=== PATIENT | female | born 1945 | race Caucasian/White ===

== ENCOUNTER 2023-04-12 08:43 | Outpatient (OUT) | payer MEDICARE, SELFPAY ==
[2023-04-12 09:12] LABS: Basophils Percent Auto 0.7 % (0.2-2.0); Eosinophils Absolute Auto 0.1 10^3/uL (0.0-0.7); Eosinophils Percent Auto 3.2 % (0.9-7.0); Hematocrit 39.9 % (36.0-48.0); Hemoglobin 12.8 g/dL (12.0-16.0); Immature Granulocytes Abs Auto 0.01 10^3/uL (0.00-0.03); Immature Granulocytes Pct Auto 0.2 % (0.0-0.5); Lymphocytes Absolute Auto 1.1 10^3/uL (1.2-3.8); Lymphocytes Percent Auto 24.2 % (20.5-60.0); Mean Corpuscular HGB Conc 32.1 g/dL (29.9-35.2); Mean Corpuscular Hemoglobin 31.1 pg (26.7-34.0); Mean Corpuscular Volume 96.8 fL (81.0-99.0); Mean Platelet Volume 8.6 fL (9.5-13.5); Monocytes Absolute Auto 0.4 10^3/uL (0.3-0.8); Monocytes Percent Auto 9.5 % (1.7-12.0); Neutrophils Absolute Auto 2.8 10^3/uL (1.4-6.5); Neutrophils Percent Auto 62.2 % (43.0-75.0); Platelet Count 241 10^3/uL (150-450); Red Blood Count 4.12 10^6/uL (4.20-5.40); Red Cell Distribution Width 12.7 % (11.0-15.0); White Blood Count 4.4 10^3/uL (4.0-11.0)
[2023-04-12 09:43] LABS: Estimated Average Glucose 117 mg/dL; Glycohemoglobin A1C 5.7 % (4.5-6.2)
[2023-04-12 09:59] LABS: Alanine Aminotransferase 28 U/L (14-59); Albumin Globulin Ratio 1.1; Albumin Level 3.8 g/dL (3.4-5.0); Alkaline Phosphatase 67 U/L (46-116); Anion Gap 11.7; Aspartate Amino Transferase 17 U/L (15-37); BUN Creatinine Ratio 36.4; Bilirubin Total 0.5 mg/dL (0.2-1.0); Calcium 8.9 mg/dL (8.5-10.1); Carbon Dioxide 30.7 mmol/L (21.0-32.0); Chloride 106 mmol/L (98-107); Chol HDL Ratio 2.2; Cholesterol 203 mg/dL (<=200); Estimated GFR (African America >60 (>=60); Estimated GFR (Non-African Ame 55 (>=60); Free T3 1.97 pg/mL (2.18-3.98); Globulin 3.5 g/dL; Glucose 101 mg/dL (74-106); HDL Cholesterol 94 mg/dL (40-60); Potassium 4.4 mmol/L (3.5-5.1); Sodium 144 mmol/L (136-145); Thyroid Stimulating Hormone 0.213 uIU/mL (0.358-3.740); Total Protein 7.3 g/dL (6.4-8.2); Triglycerides 48 mg/dL (<=150); VLDL CHOLESTEROL 9.6 mg/dL
[2023-04-13 10:08] LABS: Insulin 6.3 uIU/mL (2.6-24.9)
== END 2023-04-12 08:44 | disposition home or self-care (01) ==
LOC: LAB 08:45
PROVIDERS: PCP Family Medicine; Visit Provider Family Medicine
DX: E03.9 Hypothyroidism, unspecified (principal); J45.909 Unspecified asthma, uncomplicated; M19.90 Unspecified osteoarthritis, unspecified site; I10 Essential (primary) hypertension; E78.5 Hyperlipidemia, unspecified; R73.09 Other abnormal glucose; D64.9 Anemia, unspecified; E55.9 Vitamin D deficiency, unspecified
CPT/HCPCS: 36415; 80053; 80061; 82306; 83036; 83525; 83540; 84436; 84443; 84481; 85025

== ENCOUNTER 2023-04-12 09:09 | Outpatient (OUT) | payer MEDICARE, SELFPAY ==
--- NOTE | 2023-04-12 09:13 | MM_ITS ---
Patient Name: BECKY STRONG MR#: [id number] : 1945 Exam Date: 04/12/2023 Ordering Doctor: DR Rodney Hernandez . RADIOLOGY REPORT PROCEDURE: MM TOMOSYNTHESIS SCREENING BI COMPARISON: MG MAMM SCREEN 3D YONI CAD, 04/06/2021. MG MAMM SCREEN 3D YONI CAD, 04/07/2022. INDICATIONS: Screening Calculator Name NCI Breast Cancer Risk Assessment Tool 5 Year Breast Cancer Risk 2.90% Lifetime Breast Cancer Risk 6.30% Personal Breast Cancer No Personal Ovarian Cancer No Treatments None Family Cancers None LOCATION: [facility] BREAST COMPOSITION: Heterogeneously dense,which may obscure small masses. FINDINGS: DIAGNOSTIC CATEGORY 2--BENIGN FINDING. NO CHANGE FROM COMPARISON. Scattered benign-appearing nodules are present. Scattered benign-appearing calcifications are present. Scattered benign-appearing lymph nodes are present. RIGHT BREAST: No significant suspicious finding. LEFT BREAST: No significant suspicious finding. RECOMMENDATIONS: ROUTINE MAMMOGRAM AND CLINICAL EVALUATION IN 12 MONTHS. PLEASE NOTE: A NORMAL MAMMOGRAM DOES NOT EXCLUDE THE POSSIBILITY OF BREAST CANCER. A CLINICALLY SUSPICIOUS PALPABLE LUMP SHOULD BE BIOPSIED. Dictated by: Damaso Nice MD on 04/12/2023 at 12:44 Approved by: Damaso Nice MD on 04/12/2023 at 12:46
== END 2023-04-12 09:10 | disposition home or self-care (01) ==
LOC: MAMMO 09:09
PROVIDERS: PCP Family Medicine; Visit Provider Family Medicine
DX: Z12.31 Encounter for screening mammogram for malignant neoplasm of breast (principal)
CPT/HCPCS: 77063; 77067

== ENCOUNTER 2023-05-16 11:45 | Outpatient (OUT) | payer MEDICARE, SELFPAY ==
--- OUTSIDE RECORDS SUMMARY | 2023-05-16 11:49 | XMS_ITS | CCD ---
Author Name Unknown Address [address] [facility] [address] [place] [address] Organization [facility] Care Team Providers Care Supportability Engineer Name Role Phone Dorcas Hernandez MD Primary Care Provider DORCAS HERNANDEZ Referring Unavailable DORCAS HERNANDEZ Primary Care Unavailable GERI CHONG Attending Unavailable GERI CHONG Admitting Unavailable DORCAS HERNANDEZ Primary Care Unavailable DORCAS HERNANDEZ Referring Unavailable SELF, REFERRED Attending Unavailable SELF, REFERRED Admitting Unavailable Dorcas Hernandez MD Primary Care Provider SARANYA DURHAM Admitting Unavailable SARANYA DURHAM Attending Unavailable DORCAS HERNANDEZ Primary Care Unavailable [facility] Consulting Unavailable SARANYA DURHAM Referring Unavailable DORCAS HERNANDEZ Primary Care Unavailable TIMOTHY Mccormack, DR TOSCANO Attending Unavailable HOY ., DR TOSCANO Admitting Unavailable HOY ., DR TOSCANO Primary Care Unavailable TIMOTHY Mccormack, DR TOSCANO Consulting Unavailable ZIEBMINO, DR FER Cameron Consulting Unavailable ALABASTER, DR SARANYA Massey Consulting Unavailable AHMED, DR GALEANA Admitting Unavailable HOY ., DR TOSCANO Primary Care Unavailable AHMED, DR GALEANA Attending Unavailable AHMED, DR GALEANA Consulting Unavailable TIMOTHY .DR TOSCANO Admitting Unavailable TIMOTHY ., DR TOSCANO Attending Unavailable TIMOTHY ., DR TOSCANO Primary Care Unavailable TIMOTHY ., DR TOSCANO Consulting Unavailable ELTAFRANCISCO, DR KENNEY Consulting Unavailable TIMOTHY ., DR TOSCANO Primary Care Unavailable ELTAFRANCISCO, DR KENNEY Attending Unavailable ZAC, DR KENNEY Admitting Unavailable ELA MELTON Admitting Unavailable ELA MELTON Consulting Unavailable ELA MELTON Attending Unavailable TIMOTHY Mccormack, DR TOSCANO Primary Care Unavailable HOY ., DR TOSCANO Admitting Unavailable HOY ., DR TOSCANO Attending Unavailable HOY ., DR TOSCANO Primary Care Unavailable HOY ., DR TOSCANO Consulting Unavailable HOY ., DR TOSCANO Admitting Unavailable HOY ., DR TOSCANO Attending Unavailable HOY ., DR TOSCANO Referring Unavailable HOY ., DR TOSCANO Primary Care Unavailable HOY ., DR TOSCANO Consulting Unavailable ALABASTER, DR SARANYA Massey Consulting Unavailable HOY ., DR TOSCANO Consulting Unavailable HOY ., DR TOSCANO Admitting Unavailable HOY ., DR TOSCANO Attending Unavailable HOY ., DR TOSCANO Primary Care Unavailable HOY ., DR TOSCANO Consulting Unavailable HOY ., DR TOSCANO Admitting Unavailable HOY ., DR TOSCANO Primary Care Unavailable HOY ., DR TOSCANO Attending Unavailable MISC, DR UREÑA Admitting Unavailable HOY ., DR TOSCNAO Primary Care Unavailable MISC, DR UREÑA Attending Unavailable REINECK, DR NIKUNJ Díaz Admitting Unavailabl e REINECK, DR NIKUNJ Díaz Consulting Unavailabl e HOY ., DR TOSCANO Primary Care Unavailable REINECK, DR NIKUNJ Díaz Attending Unavailabl e ZIEBER, DR FER Cameron Consulting Unavailable NIKHIL GIORDANO Admitting Unavailable NIKHIL GIORDANO Consulting Unavailable TIMOTHY ., DR TOSCANO Primary Care Unavailable NIKHIL GIORDANO Attending Unavailable LETICIA HOYT Unavailable Gertrudis Encarnacion Attending Unavailable ELOISA OWEN Attending Unavailable ELOISA OWEN Attending Unavailable MELISSA AKHTAR Attending Unavailable Medications Current Medications Medication Drug Class(es) Dates Sig (Normalized) Sig (Original) alendronic acid 70 mg oral tablet (3 sources) Bisphosphonate Start: 02-22-2021 alendronate 70 MG tablet amitriptyline hydrochloride 50 mg oral tablet (1 source) Tricyclic Antidepressant Start: 01-06-2021 amitriptyline 50 MG tablet aspirin 81 mg chewable tablet (2 sources) Platelet Aggregation Inhibitor, Nonsteroidal Anti-inflammatory Drug Start: 05-28-2022 End: 07-09-2022 take 1 tablet by mouth twice daily aspirin 81 mg chewable tablet Chew 1 tablet (81 mg total) 2 (two) times a day. Aspirin 81 mg , 1 tab PO BID for 6 weeks, Disp appropriate quantity. If patient is prescribed Arixtra/Lovenox/Xa relto, do not begin Aspirin until that medication is finished, then only take Aspirin for 4 weeks. 84 tablet 0 05/28/2022 07/09/2022 Active Start: 05-28-2022 End: 05-27-2022 aspirin EC tablet 81 mg celecoxib 200 mg oral capsule (3 sources) Nonsteroidal Anti-inflammatory Drug Start: 05-28-2022 End: 05-27-2022 take 200 mg by mouth once daily 200 mg, oral, Daily, First dose on Tue05/28/22 at 0900, [facility] Start: 05-27-2022 End: 06-26-2022 take 1 capsule by mouth once daily celecoxib (CeleBREX) 200 mg capsule Take 1 capsule (200 mg total) by mouth 1 (one) time each day. If prior authorization is required, do not fill. 30 capsule 0 05/27/2022 06/26/2022 Active cephalexin 500 mg oral capsule (1 source) Cephalosporin Antibacterial Start: 05-27-2022 End: 06-06-2022 take 1 capsule by mouth every six hours cephalexin (KEFLEX) 500 mg capsule Take 1 capsule (500 mg total) by mouth every 6 (six) hours for 10 days. 40 each 0 05/27/2022 06/06/2022 Active diclofenac sodium 75 mg delayed release oral tablet (3 sources) Nonsteroidal Anti-inflammatory Drug Start: 03-02-2021 diclofenac EC [address] tablet levothyroxine sodium 0.075 mg oral tablet (3 sources) l-Thyroxine Start: 05-28-2022 End: 05-27-2022 75 mcg, oral, Daily, First dose on Tue05/28/22 at 0600 ORAL ROUTE: take on an empty stomach and separate from other medications. ENTERAL TUBE ROUTE: If newly initiated enteral nutrition duration is over 5 days, hold enteral nutrition 1 hour before and after drug administration, per ASPEN guidelines. take 1 tablet by mouth once edgar y levothyroxine (SYNTHROID, LEVOTHROID) 75 mcg tablet Take 1 tablet (75 mcg total) by mouth 1 (one) time each day. 0 Active liothyronine sodium 0.005 mg oral tablet (3 sources) l-Triiodothyronine Start: 05-28-2022 End: 05-27-2022 take 5 ug by mouth once daily 5 mcg, oral, Daily, First dose on Tue05/28/22 at 0600 take 1 tablet by mouth once edgar y liothyronine (CYTOMEL) 5 mcg tablet Take 1 tablet (5 mcg total) by mouth 1 (one) time each day. 0 Active lisinopril 10 mg oral tablet (4 sources) Angiotensin Converting Enzyme Inhibitor Start: 05-28-2022 End: 05-27-2022 take 10 mg by mouth once daily 10 mg, oral, Daily, First dose on Tue05/28/22 at 0900 Hold for systolic blood pressure less than 110. Start: 01-06-2021 lisinopril 10 MG tablet ondansetron 4 mg oral tablet (3 sources) Serotonin-3 Receptor Antagonist Start: 05-27-2022 End: 06-03-2022 take 1 tablet by mouth every eight hours for nausea ondansetron (ZOFRAN) 4 mg tablet Take 1 tablet (4 mg total) by mouth every 8 (eight) hours if needed for nausea or vomiting for up to 7 days. 15 tablet 0 05/27/2022 06/03/2022 Active Start: 05-27-2022 End: 05-27-2022 take 4 mg intravenously every six hours as needed ondansetron (PF) (ZOFRAN) injection 4 mg Start: 05-27-2022 End: 05-27-2022 take 1 tablet intravenously every eight hours as needed for nausea 4 mg, oral, Every 8 hours PRN, vomiting, nausea, Starting on Inez 05/27/22 at 1336, [facility] -Give IV if patient is unable to take orally. -If inadequate response within 30 minutes, proceed to next-line agent or contact provider if no further options ordered. For ODT tablets: -Do not remove from blister pack until just before administering. -Patient should allow tablet to dissolve on tongue. simvastatin 20 mg oral tablet (3 sources) HMG-CoA Reductase Inhibitor Start: 01-06-2021 simvastatin 20 MG tablet traMADol hydrochloride 50 mg oral tablet (1 source) Opioid Agonist Start: 05-27-2022 End: 06-03-2022 take 50-100 mg by mouth every six hours as needed traMADoL (ULTRAM) 50 mg tablet Take 1-2 tablets (50-100 mg total) by mouth every 6 (six) hours if needed for moderate pain for up to 7 days. Dx: Z96.6 Max Daily Amount: 400 mg 40 tablet 0 05/27/2022 06/03/2022 Active Completed/Discontinued Medications Medication Drug Class(es) Dates Sig (Normalized) Sig (Original) acetaminophen 500 mg oral tablet (3 sources) Start: 05-27-2022 End: 05-27-2022 acetaminophen (TYLENOL) tablet 1,000 mg Start: 05-27-2022 End: 06-03-2022 take 2 tablets by mouth three times daily acetaminophen (TYLENOL) 500 mg tablet Take 2 tablets (1,000 mg total) by mouth 3 (three) times a day for 7 days. Do not exceed 3,000 mg daily limit. 50 tablet 0 05/27/2022 06/03/2022 Active Start: 05-27-2022 End: 05-27-2022 take 1 tablet by mouth every six hours as needed acetaminophen (TYLENOL) tablet 325 mg aluminum hydroxide 40 mg/ml / magnesium hydroxide 40 mg/ml / simethicone 4 mg/ml oral suspension (1 source) Start: 05-27-2022 End: 05-27-2022 aluminum-magnesium hydroxide-simethicone (MAALOX) 200-200-20 mg/5 mL suspension 30 mL atorvastatin 10 mg oral tablet (1 source) HMG-CoA Reductase Inhibitor Start: 05-27-2022 End: 05-27-2022 take 10 mg by mouth once daily 10 mg, oral, Nightly, First dose on Tue05/27/22 at 2100 bethanechol chloride 25 mg oral tablet (1 source) Cholinergic Muscarinic Agonist Start: 05-27-2022 End: 05-27-2022 bethanechol (URECHOLINE) tablet 25 mg bisacodyl 10 mg rectal suppository (1 source) Stimulant Laxative Start: 05-27-2022 End: 05-27-2022 bisacodyL (DULCOLAX) suppository 10 mg calcium chloride 0.0014 meq/ml / potassium chloride 0.004 meq/ml / sodium chloride 0.103 meq/ml / sodium lactate 0.028 meq/ml injectable solution (3 sources) Start: 05-27-2022 End: 05-27-2022 take 100 mL intravenously every hour 100 mL/hr, intravenous, Continuous, Starting on Inez 05/27/22 at 1500 Start: 05-27-2022 End: 05-27-2022 lactated Ringer's infusion ceFAZolin (ANCEF) 2 gram/20 mL IV syringe 2 g (1 source) Start: 05-27-2022 End: 05-27-2022 2 g, intravenous, Administer over 3 Minutes, Every 8 hours, First dose on Inez 05/27/22 at 1800, For 2 doses, [facility] Indication: Prophylaxis-Surgical cloNIDine hydrochloride 0.1 mg oral tablet (1 source) Central alpha-2 Adrenergic Agonist Start: 05-27-2022 End: 05-27-2022 cloNIDine (CATAPRES) tablet 0.1 mg cyclobenzaprine hydrochloride 10 mg oral tablet (1 source) Muscle Relaxant Start: 05-27-2022 End: 05-27-2022 cyclobenzaprine (FLEXERIL) tablet 10 mg diphenhydrAMINE hydrochloride 25 mg oral capsule (2 sources) Histamine-1 Receptor Antagonist Start: 05-27-2022 End: 05-27-2022 take 1 capsule by mouth every six hours as needed diphenhydrAMINE (BENADRYL) capsule 25 mg Start: 05-27-2022 End: 05-27-2022 take 25 mg intravenously every six hours as needed 25 mg, intravenous, Every 6 hours PRN, itching, Starting on Inez 05/27/22 at 1433 1 ml fentaNYL 0.05 mg/ml injection (1 source) Opioid Agonist Start: 05-27-2022 End: 05-27-2022 fentaNYL (SUBLIMAZE) injection 25 mcg 0.5 ml HYDROmorphone hydrochloride 1 mg/ml prefilled syringe (1 source) Opioid Agonist Start: 05-27-2022 End: 05-27-2022 HYDROmorphone (DILAUDID) injection 0.5 mg magnesium hydroxide 80 mg/ml oral suspension (1 source) Start: 05-27-2022 End: 05-27-2022 magnesium hydroxide (MILK OF MAGNESIA) 400 mg/5 mL suspension 30 mL Naloxone (1 source) Opioid Antagonist Start: 05-27-2022 End: 05-27-2022 naloxone (NARCAN) injection 0.4 mg oxyCODONE (2 sources) Opioid Agonist Start: 05-27-2022 End: 05-27-2022 oxyCODONE (ROXICODONE) immediate release tablet 5 mg Start: 05-27-2022 End: 06-03-2022 oxyCODONE (ROXICODONE) 5 mg immediate release tablet Take 1-2 tablets (5-10 mg total) by mouth every 4 (four) hours if needed for moderate pain or severe pain for up to 7 days. Dx: Z96.6 Max Daily Amount: 60 mg 40 tablet 0 05/27/2022 06/03/2022 Active Oxygen Therapy, Adult (1 source) Start: 05-27-2022 End: 05-27-2022 Oxygen Therapy, Adult polyvinyl alcohol 0.014 ml/ml ophthalmic solution (3 sources) Start: 05-27-2022 End: 05-27-2022 1 drop, Both Eyes, Daily PRN, dry eyes, Starting on Inez 05/27/22 at 1445 promethazine hydrochloride 25 mg rectal suppository (2 sources) Phenothiazine Start: 05-27-2022 End: 05-27-2022 take 1 tablet by mouth every six hours as needed promethazine (PHENERGAN) tablet 25 mg Start: 05-27-2022 End: 05-27-2022 take 25 mg rectal route every six hours as needed promethazine (PHENERGAN) suppository 25 mg sennosides, alf 8.6 mg oral tablet (1 source) Start: 05-27-2022 End: 05-27-2022 senna (SENOKOT) tablet 8.6 mg Sodium Chloride (1 source) Start: 05-27-2022 End: 05-27-2022 sodium chloride 0.9 % flush 10 mL traZODone hydrochloride 50 mg oral tablet (1 source) Serotonin Reuptake Inhibitor Start: 05-27-2022 End: 05-27-2022 traZODone (DESYREL) tablet 50 mg Problems Active Problems Problem Classification Problem Date Documented Date Episodic/Chronic Chronic kidney disease (1 source) Chronic kidney disease stage 3; Translations: [Chronic kidney disease, stage 3] Onset: 07-13-2017 03-05-2021 Chronic Complication of device; implant or graft (4 sources) Mechanical complication of internal joint prosthesis; Translations: [Other mechanical complication of internal left hip prosthesis, initial encounter] Onset: 05-27-2022 Episodic Disorders of lipid metabolism (2 sources) Dyslipidemia; Translations: [Hyperlipidemia, unspecified] Onset: 07-13-2017 03-05-2021 Chronic Essential hypertension (2 sources) Essential hypertension; Translations: [Essential (primary) hypertension] Onset: 07-13-2017 03-05-2021 Chronic Heart valve disorders (1 source) Rheumatic disorders of both mitral and tricuspid valves; Translations: [RHEUMATIC D/O MITRAL TRICUSPID VALV] Onset: 10-29-2021 Chronic Malaise and fatigue (5 sources) Weakness; Translations: [Other fatigue] Onset: 10-29-2021 Episodic Osteoarthritis (1 source) Osteoarthritis of left hip joint; Translations: [Unilateral primary osteoarthritis, left hip] Onset: 04-05-2017 03-05-2021 Chronic Osteoporosis (1 source) Age-related osteoporosis without current pathological fracture; Translations: [AGE-REL OSTEOPOR W/O CURR PATH FX] Onset: 06-03-2022 Chronic Other aftercare (1 source) Patient encounter status; Translations: [Aftercare following joint replacement surgery] Onset: 03-09-2018 03-05-2021 Chronic Other connective tissue disease (1 source) History of total hip arthroplasty; Translations: [Presence of left artificial hip joint] Onset: 09-13-2017 03-05-2021 Chronic Other connective tissue disease (1 source) Presence of left artificial hip joint; Translations: [PRESENCE LEFT ARTIFICIAL HIP JOINT] Onset: 06-03-2022 Chronic Other nervous system disorders (1 source) Unspecified abnormalities of gait and mobility; Translations: [UNS ABNORMALITIES GAIT AND MOBILITY] Onset: 06-17-2022 Episodic Other nervous system disorders (1 source) Other abnormalities of gait and mobility; Translations: [OTHER ABNORMALITIES GAIT AND MOBILITY] Onset: 06-17-2022 Episodic Other nervous system disorders (1 source) Other acute postprocedural pain; Translations: [OTHER ACUTE POSTPROCEDURAL PAIN] Onset: 06-03-2022 Episodic Other non-traumatic joint disorders (5 sources) Pain in left hip; Translations: [PAIN IN LEFT HIP] Onset: 06-01-2022 Episodic Other nutritional; endocrine; and metabolic disorders (1 source) Localized adiposity; Translations: [Localized adiposity] Onset: 03-10-2021 03-10-2021 Chronic Other screening for suspected conditions (not mental disorders or infectious disease) (5 sources) Abnormal findings on diagnostic imaging of other parts of musculoskeletal system; Translations: [Encounter for screening mammogram for malignant neoplasm of breast] Onset: 04-07-2022 Episodic Other skin disorders (2 sources) Wrinkled skin; Translations: [Other specified disorders of the skin and subcutaneous tissue] Onset: 03-18-2021 Episodic Other skin disorders (2 sources) Atrophic condition of skin; Translations: [Atrophic disorder of skin, unspecified] Onset: 03-10-2021 Episodic Pulmonary heart disease (1 source) Pulmonary hypertension, unspecified; Translations: [PULMONARY HYPERTENSION UNSPECIFIED] Onset: 06-03-2022 Chronic Residual codes; unclassified (1 source) Pain; Translations: [Pain, unspecified] Episodic Residual codes; unclassified (1 source) Pain, unspecified; Translations: [Pain, unspecified] Onset: 05-27-2022 Episodic Residual codes; unclassified (4 sources) Other specified postprocedural states; Translations: [OTH SPECIFIED POSTPROCEDURAL STATES] Onset: 06-15-2022 Episodic Thyroid disorders (4 sources) Hypothyroidism, unspecified; Translations: [HYPOTHYROIDISM UNSPECIFIED] Onset: 03-30-2022 Chronic Unclassified (1 source) CONTACT W/AND (SUSP) EXPOS COVID-19; Translations: [CONTACT W/AND (SUSP) EXPOS COVID-19] Onset: 11-18-2021 Past or Other Problems Problem Classification Problem Date Documented Da te Episodic/Chronic Cardiac dysrhythmias (4 sources) Palpitations; Translations: [PALPITATIONS] Onset: 10-27-2021 Episodic Deficiency and other anemia (1 source) Anemia, unspecified; Translations: [ANEMIA UNSPECIFIED] Onset: 04-03-2022 Episodic Diabetes mellitus without complication (1 source) Other abnormal glucose; Translations: [OTHER ABNORMAL GLUCOSE] Onset: 04-03-2022 Episodic Nonspecific chest pain (1 source) Chest pain, unspecified; Translations: [CHEST PAIN UNSPECIFIED] Onset: 10-29-2021 Episodic Other aftercare (1 source) Patient encounter status; Translations: [Other nursing home (current) drug therapy] Onset: 04-05-2017 03-05-2021 Episodic Other connective tissue disease (1 source) Thigh pain; Translations: [Pain in left thigh] Onset: 01-18-2019 03-05-2021 Episodic Other lower respiratory disease (4 sources) Other forms of dyspnea; Translations: [OTHER FORMS OF DYSPNEA] Onset: 12-14-2021 Episodic Other skin disorders (1 source) Nonscarring hair loss, unspecified; Translations: [NONSCARRING HAIR LOSS UNSPECIFIED] Onset: 08-19-2021 Episodic Residual codes; unclassified (1 source) Insomnia, unspecified; Translations: [INSOMNIA UNSPECIFIED] Onset: 10-29-2021 Episodic Syncope (4 sources) Syncope and collapse; Translations: [SYNCOPE AND COLLAPSE] Onset: 11-14-2021 Episodic Results Test Name Value Interpretation Reference Range Facility Plastic Surgery Visit Report on 10-20-2022 Plastic Surgery Visit Report [facility] [address], [address] [place] [address] OFFICE VISIT Date of Service: 10/20/22 MR#: [id number] Acct: [id number] Name: TAEANASTASIA Joseph Rep #: [id number] : 1945 Provider: Dr. Gertrudis grimaldo MD Age/Sex: 76/F Location: [facility] Status: Signed Intake Vital Signs 10/20/22 13:35 Height 5 ft 4 in Weight: 140 lb 6 oz BMI 24.0 Body Surface Area 1.68 BP 157/75 H Blood Pressure Location Rt brachial Position Sitting Respiration 16 Pulse 85 Pulse Source Monitor Temp 97.4 F L Temp Source Temporal Pulse Oximetry (%) 97 Oxygen Delivery Method room air Intake Visit Reasons: CONSULT-LIPOSUCTION Customer Engagement Analyst Required: No Accompanied by: None Is patient in pain?: No Allergies No Known Allergies Allergy (Verified 10/20/22 13:35) Medications alendronate 70 mg tablet 70 mg PO QWEEK 10/20/22 [History Confirmed 10/20/22] amitriptyline 50 mg tablet 50 mg PO QHS 10/20/22 [History Confirmed 10/20/22] diclofenac sodium 75 mg tablet,delayed release 75 mg PO BID 10/20/22 [History Confirmed 10/20/22] levothyroxine 75 mcg capsule 75 mcg PO DAILY 10/20/22 [History Confirmed 10/20/22] liothyronine 5 mcg tablet 5 mcg PO DAILY 10/20/22 [History Confirmed 10/20/22] lisinopril 10 mg tablet 10 mg PO DAILY 10/20/22 [History Confirmed 10/20/22] montelukast 10 mg tablet 10 mg PO DAILY 10/20/22 [History Confirmed 10/20/22] simvastatin 20 mg tablet 20 mg PO DAILY 10/20/22 [History Confirmed 10/20/22] Post menopausal: Yes PFSH Medical History (Updated 10/20/22 @ 15:[address] Gertrudis Encarnacion MD) Cataract High blood pressure High cholesterol Osteopenia Thyroid disease Surgical History (Updated 10/20/22 @ 13:19 by Roxana Nassar) No pertinent past surgical history Family History (Updated 10/20/22 @ 13:20 by Roxana Nassar) Sister Hypertension Skin cancer Thyroid disorder Social History (Updated 10/20/22 @ 13:21 by Roxana Nassar) Smoking Status: Former smoker alcohol intake: never substance use type: does not use additional social history: Does Not Take Aspirin Does Not Take Ibuprofen HPI CONSULT-LIPOSUCTION Details: The patient is noted a change in her torso which has limited her clothing choices. She has gained approximately 8 pounds over the last several months. She has not had children and denies any other abdominal surgeries. She has recently begun using thyroid supplement. Exam Const General: cooperative, healthy appearing and no acute distress GI Other: Patient with protuberant abdominal muscles of the lower abdomen. She has minimal lipodystrophy of the area, as well as minimal atrophic skin. She has solar damaged skin. Coding Level of Care Code Cosmetic Consult Diagnoses Skin atrophy L90.9 Weight gain R63.5 Assessment and Plan (No Qualifiers) Assessment and Plan (1) Skin atrophy: Status: Acute (2) Weight gain: Status: Acute Plan Anastasia is not a candidate for liposuction or abdominoplasty at this time and would likely achieve the benefit she is seeking through weight loss. Plan Details Additional Comments: I reviewed with the patient that with her minimal atrophic skin or lipodystrophy, abdominoplasty or liposuction would offer very little benefit. I suggested further weight loss may help her achieve her goals. I suggested she discuss this with her PCP and consider reassessment of her diet. She is active and I encouraged her to continue with her active lifestyle. 10/20/22 1510 Date Gertrudis Montero Signature: Date (if applicable) CC: Normal [facility] CBC AUTO DIFFon 06-01-2022 BASO # 0.0 103/ul Normal 0.0-0.1 [facility] Comment on above: Performed By: #### F T3, TSH, T4 #### [facility] [address] [place] [address] Dr. Abelardo Barrett Basophils/100 WBC (Bld) 0.4 % Normal 0.2-2.0 [facility] Comment on above: Performed By: #### F T3, TSH, T4 #### [facility] [address] [place] [address] Dr. Abelardo Barrett EO # 0.1 103/ul Normal 0.0-0.7 [facility] Comment on above: Performed By: #### F T3, TSH, T4 #### [facility] [address] [place] [address] Dr. Abelardo Barrett Eosinophils/100 WBC (Bld) 2.3 % Normal 0.9-7.0 [facility] Comment on above: Performed By: #### F T3, TSH, T4 #### [facility] [address] [place] [address] Dr. Abelardo Barrett Erythrocyte distribution width (RBC) [Ratio] 13.1 % Normal 11.0-15.0 [facility] Comment on above: Performed By: #### F T3, TSH, T4 #### [facility] [address] [place] [address] Dr. Abelardo Barrett Hematocrit (Bld) [Volume fraction] 23.4 % Critically low 36.0-48.0 [facility] Comment on above: Performed By: #### F T3, TSH, T4 #### [facility] [address] [address] [address] Abelardo Barrett Hemoglobin (Bld) [Mass/Vol] 7.7 g/dL Critically low 12.0-16.0 [facility] Comment on above: Performed By: #### F T3, TSH, T4 #### [facility] [address] [address] [address] Abelardo Barrett IG # 0.02 10e3/ul Normal 0.00-0.03 [facility] Comment on above: Performed By: #### F T3, TSH, T4 #### [facility] [address] [place] [address] Dr. Abelardo Barrett IG % 0.4 % Normal 0.0-0.5 [facility] Comment on above: Performed By: #### F T3, TSH, T4 #### [facility] [address] [place] [address] Dr. Abelardo Barrett LYMPH # 0.9 103/ul Critically low 1.2-3.[address] [facility] Comment on above: Performed By: #### F T3, TSH, T4 #### [facility] [address] [address] [address] Abelardo Barrett Lymphocytes/100 WBC (Bld) 16.5 % Critically low 20.5-60.0 [facility] Comment on above: Performed By: #### F T3, TSH, T4 #### [facility] [address] [address] [address] Abelardo Barrett MANUAL DIFF REQ NO Normal [facility] Comment on above: Performed By: #### F T3, TSH, T4 #### [facility] [address] [address] [address] Abelardo Barrett MCH (RBC) [Entitic mass] 30.8 pg Normal 26.7-34.0 [facility] Comment on above: Performed By: #### F T3, TSH, T4 #### [facility] Laboratory [address] [place] [address] Dr. Abelardo Barrett MCHC (RBC) [Mass/Vol] 32.9 g/dL Normal 29.9-35.2 [facility] Comment on above: Performed By: #### F T3, TSH, T4 #### [facility] [address] [place] [address] Dr. Abelardo Barrett MCV (RBC) [Entitic vol] 93.6 fL Normal 81.0-99.0 [facility] Comment on above: Performed By: #### F T3, TSH, T4 #### [facility] [address] [place] [address] Dr. Abelardo Barrett MONO # 1.0 103/ul Critically high 0.3-0.8 [facility] Comment on above: Performed By: #### F T3, TSH, T4 #### [facility] [address] [place] [address] Dr. Abelardo Barrett Monocytes/100 WBC (Bld) 17.1 % Critically high 1.7-12.0 [facility] Comment on above: Performed By: #### F T3, TSH, T4 #### [facility] [address] [place] [address] Dr. Abelardo Barrett NEUT # 3.5 103/ul Normal 1.4-6.5 [facility] Comment on above: Performed By: #### F T3, TSH, T4 #### [facility] [address] [place] [address] Dr. Abelardo Barrett Neutrophils/100 WBC (Bld) 63.3 % Normal 43.0-75.0 [facility] Comment on above: Performed By: #### F T3, TSH, T4 #### [facility] [address] [place] [address] Dr. Abelardo Barrett Platelet mean volume (Bld) [Entitic vol] 8.8 fL Critically low 9.5-13.5 [facility] Comment on above: Performed By: #### F T3, TSH, T4 #### [facility] [address] [place] [address] Dr. Abelardo Barrett PLT 255 103/ul Normal 150-450 [facility] Comment on above: Performed By: #### F T3, TSH, T4 #### [facility] [address] [place] [address] Dr. Abelardo Barrett RBC 2.50 106/ul Critically low 4.20-5.40 [facility] Comment on above: Performed By: #### F T3, TSH, T4 #### [facility] [address] [address] [address] Abelardo Barrett WBC 5.6 103/ul Normal 4.0-11.0 [facility] Comment on above: Performed By: #### F T3, TSH, T4 #### [facility] [address] [address] [address] Abelardo Barrett ER URINE PROFILEon 3 Bilirubin Ql (U) Negative Normal NEGATIVE [facility] Comment on above: Performed By: #### F T3, TSH, T4 #### [facility] [address] [place] [address] Dr. Abelardo Barrett Clarity (U) CLEAR Normal CLEAR [facility] Comment on above: Performed By: #### F T3, TSH, T4 #### [facility] [address] [address] [address] Abelardo Barrett Color (U) LT. YELLOW Normal YELLOW [facility] Comment on above: Performed By: #### F T3, TSH, T4 #### [facility] [address] [address] [address] Abelardo BOWMAN A micrscopic examina tion will be performed if indicated. Normal [facility] Comment on above: Performed By: #### F T3, TSH, T4 #### [facility] [address] [address] [address] Abelardo Barrett Glucose Ql (U) Negative Normal NEGATIVE [facility] Comment on above: Performed By: #### F T3, TSH, T4 #### [facility] [address] [address] [address] Abelardo Barrett Hemoglobin Ql (U) Negative Normal NEGATIVE The [facility] Comment on above: Performed By: #### F T3, TSH, T4 #### [facility] [address] [address] [address] Abelardo Barrett Ketones Ql (U) Negative Normal NEGATIVE [facility] Comment on above: Performed By: #### F T3, TSH, T4 #### [facility] [address] [place] [address] Dr. Abelardo Barrett LEUKOCYTES TRACE Abnormal NEGATIVE [facility] Comment on above: Performed By: #### F T3, TSH, T4 #### [facility] [address] [place] [address] Dr. Abelardo Barrett Nitrite Ql (U) Negative Normal NEGATIVE [facility] Comment on above: Performed By: #### F T3, TSH, T4 #### [facility] [address] [place] [address] Dr. Abelardo Barrett pH (U) 6.5 [pH] Normal 5-9 [facility] Comment on above: Performed By: #### F T3, TSH, T4 #### [facility] [address] [place] [address] Dr. Abelardo Barrett SPEC GRAVITY <=1.005 Abnormal 1.005-<=1.02 5 [facility] Comment on above: Performed By: #### F T3, TSH, T4 #### [facility] [address] [place] [address] Dr. Abelardo Barrett UA PROTEIN Negative Normal NEGATIVE/ TRACE [facility] Comment on above: Performed By: #### F T3, TSH, T4 #### [facility] [address] [place] [address] Dr. Abelardo Barrett UR MICRO IND INDICATED Normal [facility] Comment on above: Performed By: #### F T3, TSH, T4 #### [facility] [address] [place] [address] Dr. Abelardo Barrett Urobilinogen Qn (U) 0.2 {Erik'U}/dL Normal 0.2 - 1. 0 [facility] Comment on above: Performed By: #### F T3, TSH, T4 #### [facility] [address] [place] [address] Dr. Abelardo Barrett PROF 14(COMP METB)on 023 Albumin [Mass/Vol] 2.2 g/dL Critically low 3.4-5.0 [facility] Comment on above: Performed By: #### F T3, TSH, T4 #### [facility] [address] [address] [address] Abelardo Barrett Albumin/Globulin [Mass ratio] 0.6 {ratio} Normal [facility] Comment on above: Performed By: #### F T3, TSH, T4 #### [facility] [address] [address] [address] Abelardo Barrett ALP [Catalytic activity/Vol] 49 U/L Normal 46-116 [facility] Comment on above: Performed By: #### F T3, TSH, T4 #### [facility] [address] [address] [address] Abelardo Barrett ALT [Catalytic activity/Vol] 36 U/L Normal 14-59 [facility] Comment on above: Performed By: #### F T3, TSH, T4 #### [facility] [address] [address] [address] Abelardo Barrett Anion gap [Moles/Vol] 12.2 mmol/L Normal [facility] Comment on above: Performed By: #### F T3, TSH, T4 #### [facility] [address] [address] [address] Abelardo Barrett AST [Catalytic activity/Vol] 43 U/L Critically high 15-37 [facility] Comment on above: Performed By: #### F T3, TSH, T4 #### [facility] [address] [address] [address] Abelardo Barrett Bilirubin [Mass/Vol] 0.7 mg/dL Normal 0.2-1.0 [facility] Comment on above: Performed By: #### F T3, TSH, T4 #### [facility] [address] [address] [address] Abelardo Barrett Calcium [Mass/Vol] 11.0 mg/dL Critically high 8.5-10.[address] [facility] Comment on above: Performed By: #### F T3, TSH, T4 #### [facility] [address] [address] [address] Abelardo Barrett Chloride [Moles/Vol] 98 mmol/L Normal 98-107 [facility] Comment on above: Performed By: #### F T3, TSH, T4 #### [facility] [address] [address] [address] Abelardo Barrett CO2 [Moles/Vol] 31.7 mmol/L Normal 21.0-32.[address] [facility] Comment on above: Performed By: #### F T3, TSH, T4 #### [facility] [address] [place] [address] Dr. Abelardo Barrett Creatinine [Mass/Vol] 1.17 mg/dL Critically high 0.55-1.02 [facility] Comment on above: Performed By: #### F T3, TSH, T4 #### [facility] [address] [place] [address] Dr. Abelardo Barrett EGFR-AF CROATIAN 55 mL/min/1.73m2 Critically low >=60 [facility] Comment on above: Performed By: #### F T3, TSH, T4 #### [facility] [address] [place] [address] Dr. Abelardo Barrett EGFR-NON AF CROATIAN 45 mL/min/1.73m2 Critically low >=60 [facility] Comment on above: Performed By: #### F T3, TSH, T4 #### [facility] [address] [place] [address] Dr. Abelardo Barrett Globulin (S) [Mass/Vol] 3.4 g/dL Normal [facility] Comment on above: Performed By: #### F T3, TSH, T4 #### [facility] [address] [place] [address] Dr. Abelardo Barrett Glucose [Mass/Vol] 107 mg/dL Critically high 74-106 [facility] Comment on above: Performed By: #### F T3, TSH, T4 #### [facility] [address] [place] [address] Dr. Abelardo Barrett Potassium [Moles/Vol] 4.9 mmol/L Normal 3.5-5.1 [facility] Comment on above: Performed By: #### F T3, TSH, T4 #### [facility] [address] [place] [address] Dr. Abelardo Barrett Protein [Mass/Vol] 5.6 g/dL Critically low 6.4-8.2 [facility] Comment on above: Performed By: #### F T3, TSH, T4 #### [facility] [address] [address] [address] Abelardo Barrett Sodium [Moles/Vol] 137 mmol/L Normal 136-145 [facility] Comment on above: Performed By: #### F T3, TSH, T4 #### [facility] [address] [address] [address] Abelardo Barrett Urea nitrogen [Mass/Vol] 27.0 mg/dL Critically high 7.0-18.0 [facility] Comment on above: Performed By: #### F T3, TSH, T4 #### [facility] [address] [place] [address] Dr. Abelardo Barrett Urea nitrogen/Creatinine [Mass ratio] 23.1 mg/mg Normal [facility] Comment on above: Performed By: #### F T3, TSH, T4 #### [facility] [address] [place] [address] Dr. Abelardo Barrett URINE MICROSCOPIC ONLYon BACTERIA TRACE Abnormal NONE SEEN [facility] Comment on above: Performed By: #### F T3, TSH, T4 #### [facility] [address] [place] [address] Dr. Abelardo Barrett Bacteria identified Cx Nom (U) NOT INDICATED Normal [facility] Comment on above: Performed By: #### F T3, TSH, T4 #### [facility] [address] [place] [address] Dr. Abelardo Barrett CAST NONE SEEN Normal NONE SEEN [facility] Comment on above: Performed By: #### F T3, TSH, T4 #### [facility] [address] [place] [address] Dr. Abelardo Barrett Crystals LM Nom (Urine sed) NONE SEEN Normal NONE SEEN [facility] Comment on above: Performed By: #### F T3, TSH, T4 #### [facility] [address] [place] [address] Dr. Abelardo Barrett Epithelial cells LM Ql (Urine sed) RARE Normal NONE SEEN /RARE [facility] Comment on above: Performed By: #### F T3, TSH, T4 #### [facility] [address] [address] [address] Abelardo Barrett MUCOUS NONE SEEN Normal NONE SEEN [facility] Comment on above: Performed By: #### F T3, TSH, T4 #### [facility] [address] [address] [address] Abelardo Barrett RBC 0-2 Normal 0-2 [facility] Comment on above: Performed By: #### F T3, TSH, T4 #### [facility] [address] [address] [address] Abelardo Barrett WBC 0-2 Abnormal NONE SEEN [facility] Comment on above: Performed By: #### F T3, TSH, T4 #### [facility] [address] [address] [address] Abelardo Barrett Bacteria Spec Anaerobe Culto n 05-27-2022 Bacteria identified Anaer cx Nom (Unsp spec) Culture, Anaerobic Status = F No anaerobes grown after 4 days. Normal [facility] Comment on above: Performed By: #### 1 988-5 #### [facility] [address] [place] [address] Bacteria identified Anaer cx Nom (Unsp spec) Culture, Anaerobic Status = F No anaerobes grown after 4 days. Normal [facility] Comment on above: Performed By: #### 1 988-5 #### [facility] [address] [place] [address] Bacteria Tiss Culton 023 Bacteria identified Cx Nom (Tiss) Culture, Tissue Status = F No growth at 3 days Gram Stain Result Status = F No Polymorphonuclear leukocytes This is an appended report. These results have been appended to a previously preliminary verified report. No Epithelial cells This is an appended report. These results have been appended to a previously preliminary verified report. No organisms seen This is an appended report. These results have been appended to a previously preliminary verified report. Normal [facility] Comment on above: Performed By: #### 1 988-5 #### [facility] [address] [place] [address] Bacteria identified Cx Nom (Tiss) Culture, Tissue Status = F No growth at 3 days Gram Stain Result Status = F No Polymorphonuclear leukocytes This is an appended report. These results have been appended to a previously preliminary verified report. No Epithelial cells This is an appended report. These results have been appended to a previously preliminary verified report. No organisms seen This is an appended report. These results have been appended to a previously preliminary verified report. Normal [facility] Comment on above: Performed By: #### 1 988-5 #### [facility] [address] [place] [address] Blood type and Indirect anti body screen panel (Bld)on 05-27-2022 ABO group Nom (Bld) O Normal [facility] Comment on above: Performed By: #### 3 4532-2 #### [facility] [address] [place] [address] Rh Type Negative Normal [facility] Comment on above: Performed By: #### 3 4532-2 #### [facility] [address] [place] [address] ABO group Nom (Bld) O [facility] Blood group antibody screen Ql Negative [facility] Rh Nom (Bld) Negative [facility] Fungus Skin Culton 3 Fungus identified Cx Nom (Skin) Culture, Fungus Status = F No growth at 4 weeks Normal [facility] Comment on above: Performed By: #### 3 4532-2 #### [facility] [address] [place] [address] Fungus identified Cx Nom (Skin) Culture, Fungus Status = F No growth at 4 weeks Normal [facility] Comment on above: Performed By: #### 1 988-5 #### [facility] [address] [place] [address] Glucose Auto test strip (Bld ) [Mass/Vol]on 05-27-2022 Glucose [Mass/Vol] 98 mg/dL Normal 70-99 [facility] Comment on above: Performed By: #### 2 340-8 #### [facility] [address] [place] [address] Glucose [Mass/Vol] 98 mg/dL 70 - 99 mg/dL [facility] Interpretation and review of laboratory results [facility] Mycobacterium Spec Culton Mycobacterium sp identified Org specific cx Nom (Unsp spec) Culture AFB Status = C No growth at 8 weeks AFB Stain Status = F No acid fast bacilli seen Normal [facility] Comment on above: Performed By: #### 1 988-5 #### [facility] [address] [place] [address] Mycobacterium sp identified Org specific cx Nom (Unsp spec) Culture AFB Status = C No growth at 8 weeks AFB Stain Status = F No acid fast bacilli seen Normal [facility] Comment on above: Performed By: #### 5 43-9 #### [facility] [address] [place] [address] Performed By: #### 1 988-5 #### [facility] [address] [place] [address] Pathology studyon 05-27-2022 Pathology study Left hip tissue, bio psy: Fibrous tissue with degenerative changes. No perivascular lymphocytic inflammation is present. A. Hip, Left, R/O perivascular lymphocytic infiltrates: Received in formalin labeled with the patient's name and left hip is a 2 x 2 x 0.5 cm fragment of gupta-pink to gupta-yellow fibroadipose tissue. Upon sectioning the cut surface is gupta-pink to gupta-yellow, rubbery and grossly unremarkable. The specimen is submitted entirely in block A1. (AB) Any immunohistochemistry or special stain used in the interpretation of this case was performed at [facility]. These tests have not been cleared or approved by the U.S. Food and Drug Administration. The FDA has determined that such clearance or approval is not necessary. These tests are used for clinical purposes and should not be regarded as investigational or for research. This laboratory is certified to perform high complexity testing under the Clinical Laboratory Improvement Amendments of 1998. All controls show appropriate reactivity. The technical component was performed at [facility], [address] [place] [address]. Microscopic examination was performed. Normal [facility] Comment on above: Performed By: #### 1 1526-1 #### [facility] ([facility] [address] [place], [place] [id number] [facility] [address] [place] [address] SARS-CoV-2 (COVID-19) RNA NA A+probe Ql (Resp)on 05-27-2022 Interpretation and review of laboratory results Normal [facility] SARS-CoV-2 (COVID-19) RdRp gene STEVE+probe Ql (Resp) Not detected Not Detected [facility] SARS-CoV-2 RNA Resp Ql STEVE+p robeon 05-27-2022 SARS-CoV-2 (COVID-19) RNA STVEE+probe Ql (Resp) Not detected Normal Not Detected [facility] Comment on above: Performed By: #### 9 4500-6 #### [facility] [address] [place] [address] XR FLUORO UP TO 1 HOUR (STAT ISTICS)(NO REPORT)on 05-27-2022 XR FLUORO UP TO 1 HOUR (STATISTICS)(NO REPORT) This order has been auto-finalized and does not contain a result. Normal [facility] XR Fluoro Up To 1 Hour (Stat istics)(No Report)on 05-27-2022 This order has been auto-finalized and does not contain a result. RIS PACS/VR XR PELVIS 1-2 VIEWSon 2022 XR PELVIS 1-2 VIEWS EXAMINATION TYPE: XR PELVIS 1-2 VIEWS DATE OF EXAM: 05/27/2022 2:00 PM HISTORY: postoperative care. 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 No postoperative fracture. Tip of the elongated femoral stem in the mid left femoral diaphysis. Gas in the periarticular soft tissues from recent surgery. IMPRESSION: No acute findings. 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 -------- FINAL REPORT -------- Dictated By: Miguelangel Martinez Dictated Date: 05/27/2022 14:17 Assigned Physician: Miguelangel Martinez Reviewed and Electronically Signed By: Miguelangel Martinez Signed Date: 05/27/2022 14:21 Workstation ID: [id number] Transcribed By: Self Edit Transcribed Date: 05/27/2022 14:17 Normal [facility] XR Pelvis 1-2 Viewson 2022 No acute findings. 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 -------- FINAL REPORT -------- Dictated By: Miguelangel Martinez Dictated Date: 05/27/2022 14:17 Assigned Physician: Miguelangel Martinez Reviewed and Electronically Signed By: Miguelangel Martinez Signed Date: 05/27/2022 14:21 Workstation ID: [id number] Transcribed By: Self Edit Transcribed Date: 05/27/2022 14:17 POWERSCRIBE EXAMINATION TYPE: XR PELVIS 1-2 VIEWS DATE OF EXAM: 05/27/2022 2:00 PM HISTORY: postoperative care. 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 No postoperative fracture. Tip of the elongated femoral stem in the mid left femoral diaphysis. Gas in the periarticular soft tissues from recent surgery. POWERSCRIBE Miguelangel Martinez MD - 05/27/2022 EXAMINATION TYPE: XR PELVIS 1-2 VIEWS DATE OF EXAM: 05/27/2022 2:00 PM HISTORY: postoperative care. 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 No postoperative fracture. Tip of the elongated femoral stem in the mid left femoral diaphysis. Gas in the periarticular soft tissues from recent surgery. IMPRESSION: No acute findings. 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 -------- FINAL REPORT -------- Dictated By: Miguelangel Martinez Dictated Date: 05/27/2022 14:17 Assigned Physician: Miguelangel Martinez Reviewed and Electronically Signed By: Miguelangel Martinez Signed Date: 05/27/2022 14:21 Workstation ID: [id number] Transcribed By: Self Edit Transcribed Date: 05/27/2022 14:17 [facility] Radiology Study observation (narrative) [facility] [email or web address] XR Pelvis 1-2 ViewsOrdered B y: Miguelangel Martinez on 05-27-2022 [employer] Work Phone: Blood type and Indirect anti body screen panel (Bld)on 05-17-2022 ABO group Nom (Bld) O Normal [facility] Comment on above: Performed By: #### 3 4532-2 #### [facility] [address] [place] [address] Rh Type Negative Normal [facility] Comment on above: Performed By: #### 3 4532-2 #### [facility] [address] [place] [address] CRP [Mass/Vol]on 05-17-2022 Anion gap [Moles/Vol] 11 mmol/L Normal 6-18 [facility] Comment on above: Order Comment: Sampl e received unlabeled or with name discrepancy. The Physician, Clinican or authorized designee has authorized the release of the results and assumes responsibility for sample identification. Performed By: #### 1 988-5 #### [facility] [address] [place] [address] Calcium [Mass/Vol] 10.9 mg/dL High 8.9-10.3 [facility] Comment on above: Order Comment: Sampl e received unlabeled or with name discrepancy. The Physician, Clinican or authorized designee has authorized the release of the results and assumes responsibility for sample identification. Performed By: #### 1 988-5 #### [facility] [address] [place] [address] Chloride [Moles/Vol] 102 mmol/L Normal 98-107 [facility] Comment on above: Order Comment: Sampl e received unlabeled or with name discrepancy. The Physician, Clinican or authorized designee has authorized the release of the results and assumes responsibility for sample identification. Performed By: #### 1 988-5 #### [facility] [address] [place] [address] CO2 [Moles/Vol] 27 mmol/L Normal 22-32 [facility] Comment on above: Order Comment: Sampl e received unlabeled or with name discrepancy. The Physician, Clinican or authorized designee has authorized the release of the results and assumes responsibility for sample identification. Performed By: #### 1 988-5 #### [facility] [address] [place] [address] Creatinine [Mass/Vol] 0.92 mg/dL Normal 0.60-1.30 [facility] Comment on above: Order Comment: Sampl e received unlabeled or with name discrepancy. The Physician, Clinican or authorized designee has authorized the release of the results and assumes responsibility for sample identification. Performed By: #### 1 988-5 #### [facility] [address] [place] [address] GFR/1.73 sq M.predicted among non-blacks MDRD (S/P/Bld) [Vol rate/Area] 65 mL/min/{1.73_m2} Normal >=60 [facility] Comment on above: Order Comment: Sampl e received unlabeled or with name discrepancy. The Physician, Clinican or authorized designee has authorized the release of the results and assumes responsibility for sample identification. Result Comment: Effe ctive February 07, 2022, calculation based on the?Chronic Kidney Disease Epidemiology Collaboration (CKD-EPI) equation refit?without adjustment for race. Performed By: #### 1 988-5 #### [facility] [address] [place] [address] Glucose [Mass/Vol] 86 mg/dL Normal 70-99 [facility] Comment on above: Order Comment: Sampl e received unlabeled or with name discrepancy. The Physician, Clinican or authorized designee has authorized the release of the results and assumes responsibility for sample identification. Performed By: #### 1 988-5 #### [facility] [address] [place] [address] Potassium [Moles/Vol] 4.6 mmol/L Normal 3.6-5.1 [facility] Comment on above: Order Comment: Sampl e received unlabeled or with name discrepancy. The Physician, Clinican or authorized designee has authorized the release of the results and assumes responsibility for sample identification. Performed By: #### 1 988-5 #### [facility] [facility] [address] [place] [id number] Sodium [Moles/Vol] 140 mmol/L Normal 136-145 [facility] Comment on above: Order Comment: Sampl e received unlabeled or with name discrepancy. The Physician, Clinican or authorized designee has authorized the release of the results and assumes responsibility for sample identification. Performed By: #### 1 988-5 #### [facility] [address] [place] [address] Urea nitrogen [Mass/Vol] 36 mg/dL High 8-20 [facility] Comment on above: Order Comment: Sampl e received unlabeled or with name discrepancy. The Physician, Clinican or authorized designee has authorized the release of the results and assumes responsibility for sample identification. Performed By: #### 1 988-5 #### [facility] [address] [place] [address] Urea nitrogen/Creatinine [Mass ratio] 39.1 mg/mg High 12.0-20.0 [facility] Comment on above: Order Comment: Sampl e received unlabeled or with name discrepancy. The Physician, Clinican or authorized designee has authorized the release of the results and assumes responsibility for sample identification. Performed By: #### 1 988-5 #### [facility] ([facility] [address] [place] [address] Hemogram and platelets WO di fferential panel (Bld)on 05-17-2022 Sed Rate 18 mm/hr Normal 0-20 [facility] Comment on above: Performed By: #### 2 4317-0 #### [facility] ([facility] [address] [place] [address] MG MAMM SCREEN 3D YONI CADon 04-07-2022 MG MAMM SCREEN 3D YONI CAD Patient: ANASTASIA PONCE Exam Date: 04/07/2022 : 1945 Gender:F Ordering : DR KERVIN OSORIO Admission #: [id number] Family : DR DORCAS HERNANDEZ . Order #: [id number] CLICK HERE TO VIEW EXAM RADIOLOGY REPORT PROCEDURE: MAMMOGRAM SCREENING 3D BILATERAL CAD COMPARISON: MG MAMM SCREEN YONI W CAD, 03/11/2020. MG MAMM SCREEN 3D YONI CAD, 04/06/2021. INDICATIONS: Screening mammography Calculator Name NCI Breast Cancer Risk Assessment Tool 5 Year Breast Cancer Risk 2.90% Lifetime Breast Cancer Risk 6.70% Personal Breast Cancer No Personal Ovarian Cancer No Treatments None Family Cancers None LOCATION: [facility] BREAST COMPOSITION: Heterogeneously dense,which may obscure small masses. FINDINGS: DIAGNOSTIC CATEGORY 2--BENIGN FINDING. NO CHANGE FROM COMPARISON. Scattered benign-appearing nodules are present. Scattered benign-appearing calcifications are present. Scattered benign-appearing lymph nodes are present. RIGHT BREAST: No significant suspicious finding. LEFT BREAST: No significant suspicious finding. RECOMMENDATIONS: ROUTINE MAMMOGRAM AND CLINICAL EVALUATION IN 12 MONTHS. PLEASE NOTE: A NORMAL MAMMOGRAM DOES NOT EXCLUDE THE POSSIBILITY OF BREAST CANCER. A CLINICALLY SUSPICIOUS PALPABLE LUMP SHOULD BE BIOPSIED. Dictated by: Saranya Spaulding MD on 04/07/2022 at 10:58 Approved by: Saranya Spaulding MD on 04/07/2022 at 11:00 Normal [facility] CBC AUTO DIFFon 03-30-2022 BASO # 0.0 103/ul Normal 0.0-0.1 [facility] Comment on above: Performed By: #### F T3, TSH, T4 #### [facility] [address] [place] [address] Dr. Abelardo Barrett Basophils/100 WBC (Bld) 0.9 % Normal 0.2-2.0 [facility] Comment on above: Performed By: #### F T3, TSH, T4 #### [facility] [address] [place] [address] Dr. Abelardo Barrett EO # 0.1 103/ul Normal 0.0-0.7 [facility] Comment on above: Performed By: #### F T3, TSH, T4 #### [facility] [address] [place] [address] Dr. Abelardo Barrett Eosinophils/100 WBC (Bld) 2.0 % Normal 0.9-7.0 [facility] Comment on above: Performed By: #### F T3, TSH, T4 #### [facility] [address] [place] [address] Dr. Abelardo Barrett Erythrocyte distribution width (RBC) [Ratio] 12.5 % Normal 11.0-15.0 [facility] Comment on above: Performed By: #### F T3, TSH, T4 #### [facility] [address] [place] [address] Dr. Abelardo Barrett Hematocrit (Bld) [Volume fraction] 37.9 % Normal 36.0-48.0 [facility] Comment on above: Performed By: #### F T3, TSH, T4 #### [facility] [address] [place] [address] Dr. Abelardo Barrett Hemoglobin (Bld) [Mass/Vol] 12.6 g/dL Normal 12.0-16.0 [facility] Comment on above: Performed By: #### F T3, TSH, T4 #### [facility] [address] [place] [address] Dr. Abelardo Barrett IG # 0.01 10e3/ul Normal 0.00-0.03 [facility] Comment on above: Performed By: #### F T3, TSH, T4 #### [facility] [address] [place] [address] Dr. Abelardo Barrett IG % 0.2 % Normal 0.0-0.5 [facility] Comment on above: Performed By: #### F T3, TSH, T4 #### [facility] [address] [place] [address] Dr. Abelardo Barrett LYMPH # 1.2 103/ul Normal 1.2-3.8 [facility] Comment on above: Performed By: #### F T3, TSH, T4 #### [facility] [address] [place] [address] Dr. Abelardo Barrett Lymphocytes/100 WBC (Bld) 26.5 % Normal 20.5-60.0 [facility] Comment on above: Performed By: #### F T3, TSH, T4 #### [facility] [address] [place] [address] Dr. Abelardo Barrett MANUAL DIFF REQ NO Normal [facility] Comment on above: Performed By: #### F T3, TSH, T4 #### [facility] [address] [place] [address] Dr. Abelardo Barrett MCH (RBC) [Entitic mass] 29.9 pg Normal 26.7-34.0 [facility] Comment on above: Performed By: #### F T3, TSH, T4 #### [facility] [address] [place] [address] Dr. Abelardo Barrett MCHC (RBC) [Mass/Vol] 33.2 g/dL Normal 29.9-35.2 [facility] Comment on above: Performed By: #### F T3, TSH, T4 #### [facility] [address] [place] [address] Dr. Abelardo Barrett MCV (RBC) [Entitic vol] 90.0 fL Normal 81.0-99.0 [facility] Comment on above: Performed By: #### F T3, TSH, T4 #### [facility] [address] [place] [address] Dr. Abelardo Barrett MONO # 0.5 103/ul Normal 0.3-0.8 [facility] Comment on above: Performed By: #### F T3, TSH, T4 #### [facility] [address] [place], [place] [id number] Dr. Abelardo Barrett Monocytes/100 WBC (Bld) 10.1 % Normal 1.7-12.0 [facility] Comment on above: Performed By: #### F T3, TSH, T4 #### [facility] [address] [place] [address] Dr. Abelardo Barrett NEUT # 2.8 103/ul Normal 1.4-6.5 [facility] Comment on above: Performed By: #### F T3, TSH, T4 #### [facility] [address] [place] [address] Dr. Abelardo Barrett Neutrophils/100 WBC (Bld) 60.3 % Normal 43.0-75.0 [facility] Comment on above: Performed By: #### F T3, TSH, T4 #### [facility] [address] [place] [address] Dr. Abelardo Barrett Platelet mean volume (Bld) [Entitic vol] 8.6 fL Critically low 9.5-13.5 [facility] Comment on above: Performed By: #### F T3, TSH, T4 #### [facility] [address] [place] [address] Dr. Abelardo Barrett PLT 248 103/ul Normal 150-450 [facility] Comment on above: Performed By: #### F T3, TSH, T4 #### [facility] [address] [place] [address] Dr. Abelardo Barrett RBC 4.21 106/ul Normal 4.20-5.40 [facility] Comment on above: Performed By: #### F T3, TSH, T4 #### [facility] [address] [place] [address] Dr. Abelardo Barrett WBC 4.6 103/ul Normal 4.0-11.0 [facility] Comment on above: Performed By: #### F T3, TSH, T4 #### [facility] [address] [place] [address] Dr. Abelardo Barrett FREE THYROXINE INDEX T7on FTI 2.73 Normal 1.30-4.50 [facility] Comment on above: Performed By: #### C MP, LIPID #### [facility] [address] [address] [address] Abelardo Barrett T3U 35.0 % Normal 30.0-39.0 [facility] Comment on above: Performed By: #### C MP, LIPID #### [facility] [address] [address] [address] Abelardo Barrett T4 [Mass/Vol] 7.80 ug/dL Normal 4.80-13.90 [facility] Comment on above: Performed By: #### C MP, LIPID #### [facility] [address] [place] [address] Dr. Abelardo Barrett GLYCOHEMOGLOBIN A1Con 2021 ADA RECOMMENDATION SEE BELOW Normal [facility] Comment on above: Result Comment: ADA RECOMMENDED LIMIT 4.0 - 6.0 ADA THERAPEUTIC TARGET < 7.0 ACTION SUGGESTED > 7.0 Performed By: #### C MP, LIPID #### [facility] [address] [place] [address] Dr. Abelardo Barrett Glucose [Mass/Vol] 123 mg/dL Normal [facility] Comment on above: Performed By: #### C MP, LIPID #### [facility] [address] [place] [address] Dr. Abelardo Barrett HbA1c (Bld) [Mass fraction] 5.9 % Normal 4.5-6.2 [facility] Comment on above: Performed By: #### C MP, LIPID #### [facility] [address] [place] [address] Dr. Abelardo Barrett IRONon 03-30-2022 Iron [Mass/Vol] 94.0 ug/dL Normal 50.0-170.0 [facility] Comment on above: Performed By: #### C MP, LIPID #### [facility] [address] [place] [address] Dr. Abelardo Barrett LIPID PROFILEon 03-30-2022 CHOL-HDL RATIO NORM SEE BELOW Normal [facility] Comment on above: Result Comment: 3.3 - 4.4 LOW RISK 4.4 - 7.1 AVERAGE RISK 7.1 - 11.0 MODERATE RISK >11.0 HIGH RISK Performed By: #### C MP, LIPID #### [facility] [address] [address] [address] Abelardo Barrett Cholesterol [Mass/Vol] 186 mg/dL Normal <=200 [facility] Comment on above: Performed By: #### C MP, LIPID #### [facility] [address] [address] [address] Abelardo Barrett Cholesterol in HDL [Mass/Vol] 86 mg/dL Critically high 40-60 [facility] Comment on above: Performed By: #### C MP, LIPID #### [facility] [address] [address] [address] Abelardo Barrett Cholesterol in LDL [Mass/Vol] 88.8 mg/dL Normal [facility] Comment on above: Performed By: #### C MP, LIPID #### [facility] [address] [address] [address] Abelardo Barrett Cholesterol.total/C holesterol in HDL [Mass ratio] 2.2 {ratio} Normal [facility] Comment on above: Performed By: #### C MP, LIPID #### [facility] [address] [address] [address] Abelardo Barrett HDL NORMAL > or = 60 mg/dl - LO W CARDIOVASCULAR RISK <40 mg/dl - HIGH CARDIOVASCULAR RISK Normal [facility] Comment on above: Performed By: #### C MP, LIPID #### [facility] [address] [address] [address] Abelardo Barrett LDL CALC NORMAL SEE BELOW Normal [facility] Comment on above: Result Comment: <100 mg/dl OPTIMAL 100 - 129 mg/dl NEAR OR ABOVE OPTIMAL 130 - 159 mg/dl BORDERLINE HIGH 160 - 189 mg/dl HIGH >190 mg/dl VERY HIGH Performed By: #### C MP, LIPID #### [facility] [address] [address] [address] Abelardo Barrett Triglyceride [Mass/Vol] 56 mg/dL Normal <=150 [facility] Comment on above: Performed By: #### C MP, LIPID #### [facility] [address] [address] [address] Abelardo Barrett VLDL CALC 11.2 mg/dL Normal [facility] Comment on above: Performed By: #### C MP, LIPID #### [facility] [address] [place] [address] Dr. Abelardo Barrett PROF 14(COMP METB)on 022 Albumin [Mass/Vol] 3.7 g/dL Normal 3.4-5.0 [facility] Comment on above: Performed By: #### C MP, LIPID #### [facility] [address] [place] [address] Dr. Abelardo Barrett Albumin/Globulin [Mass ratio] 1.0 {ratio} Normal [facility] Comment on above: Performed By: #### C MP, LIPID #### [facility] [address] [place] [address] Dr. Abelardo Barrett ALP [Catalytic activity/Vol] 59 U/L Normal 46-116 [facility] Comment on above: Performed By: #### C MP, LIPID #### [facility] [address] [place] [address] Dr. Abelardo Barrett ALT [Catalytic activity/Vol] 30 U/L Normal 14-59 [facility] Comment on above: Performed By: #### C MP, LIPID #### [facility] [address] [place] [address] Dr. Abelardo Barrett Anion gap [Moles/Vol] 9.0 mmol/L Normal [facility] Comment on above: Performed By: #### C MP, LIPID #### [facility] [address] [place] [address] Dr. Abelardo Barrett AST [Catalytic activity/Vol] 17 U/L Normal 15-37 [facility] Comment on above: Performed By: #### C MP, LIPID #### [facility] [address] [place] [address] Dr. Abelardo Barrett Bilirubin [Mass/Vol] 0.6 mg/dL Normal 0.2-1.0 [facility] Comment on above: Performed By: #### C MP, LIPID #### [facility] [address] [place] [address] Dr. Abelardo Barrett Calcium [Mass/Vol] 9.1 mg/dL Normal 8.5-10.1 [facility] Comment on above: Performed By: #### C MP, LIPID #### [facility] [address] [place] [address] Dr. Abelardo Barrett Chloride [Moles/Vol] 104 mmol/L Normal 98-107 [facility] Comment on above: Performed By: #### C MP, LIPID #### [facility] [address] [place] [address] Dr. Abelardo Barrett CO2 [Moles/Vol] 30.6 mmol/L Normal 21.0-32.0 [facility] Comment on above: Performed By: #### C MP, LIPID #### [facility] [address] [place] [address] Dr. Abelardo Barrett Creatinine [Mass/Vol] 0.85 mg/dL Normal 0.55-1.02 [facility] Comment on above: Performed By: #### C MP, LIPID #### [facility] [address] [place] [address] Dr. Abelardo Barrett EGFR-AF CROATIAN >60 Normal >=60 [facility] Comment on above: Performed By: #### C MP, LIPID #### [facility] [address] [place] [address] Dr. Abelardo Barrett EGFR-NON AF CROATIAN >60 Normal >=60 [facility] Comment on above: Performed By: #### C MP, LIPID #### [facility] [address] [place] [address] Dr. Abelardo Barrett Globulin (S) [Mass/Vol] 3.6 g/dL Normal [facility] Comment on above: Performed By: #### C MP, LIPID #### [facility] [address] [place] [address] Dr. Abelardo Barrett Glucose [Mass/Vol] 93 mg/dL Normal 74-106 [facility] Comment on above: Performed By: #### C MP, LIPID #### [facility] [address] [place] [address] Dr. Abelardo Barrett Potassium [Moles/Vol] 4.6 mmol/L Normal 3.5-5.1 [facility] Comment on above: Performed By: #### C MP, LIPID #### [facility] [address] [place] [address] Dr. Abelardo Barrett Protein [Mass/Vol] 7.3 g/dL Normal 6.4-8.2 [facility] Comment on above: Performed By: #### C MP, LIPID #### [facility] [address] [place] [address] Dr. Abelardo Barrett Sodium [Moles/Vol] 139 mmol/L Normal 136-145 [facility] Comment on above: Performed By: #### C MP, LIPID #### [facility] [address] [place] [address] Dr. Abelardo Barrett Urea nitrogen [Mass/Vol] 33.0 mg/dL Critically high 7.0-18.0 [facility] Comment on above: Performed By: #### C MP, LIPID #### [facility] [address] [place] [address] Dr. Abelardo Barrett Urea nitrogen/Creatinine [Mass ratio] 38.8 mg/mg Normal [facility] Comment on above: Performed By: #### C MP, LIPID #### [facility] [address] [place] [address] Dr. Abelardo Barrett TSHon 03-30-2022 TSH Qn m[IU]/L Critically low 0.358-3.740 [facility] Comment on above: Performed By: #### C MP, LIPID #### [facility] [address] [place] [address] Dr. Abelardo Barrett T4 [facility] 01-16-2022 T4 [Mass/Vol] 8.3 ug/dL Normal 4.5-12.0 [facility] Comment on above: Performed By: #### C MP, LIPID #### [facility] [address] [place] [address] Dr. Abelardo Barrett FREE T3on 01-15-2022 FREE T3 3.34 pg/mlL Normal 2.18-3.98 [facility] Comment on above: Performed By: #### C MP, LIPID #### [facility] [address] [address] [address] Abelardo Barrett TSHon 01-15-2022 TSH Qn m[IU]/L Critically low 0.358-3.740 [facility] Comment on above: Performed By: #### C MP, LIPID #### [facility] [address] [address] [address] Abelardo Barrett BLOOD GASES BTYon 12-14-2021 02 MODE ROOM AIR [facility] Comment on above: Performed By: #### A BG #### [facility] [address] [address] [address] Abelardo Barrett ALLENS TEST Positive [facility] Comment on above: Performed By: #### A BG #### [facility] [address] [place] [address] Dr. Abelardo Barrett Base excess Calc (Bld) [Moles/Vol] 0.7 mmol/L Normal -2.0-2.0 [facility] Comment on above: Performed By: #### A BG #### [facility] [address] [address] [address] Abelardo Barrett BIPAP PRESSURE [facility] Comment on above: Performed By: #### A BG #### [facility] [address] [address] [address] Abelardo Barrett CO2 [Moles/Vol] 51.6 mmol/L Critically high 23.0-28.0 [facility] Comment on above: Performed By: #### A BG #### [facility] [address] [address] [address] Abelardo Barrett CPAP [facility] Comment on above: Performed By: #### A BG #### [facility] [address] [address] [address] Abelardo Barrett FIO2 [facility] Comment on above: Performed By: #### A BG #### [facility] [address] [address] [address] Abelardo Barrett HCO3 (Bld) [Moles/Vol] 25.0 mmol/L Normal 22.0-26.0 [facility] Comment on above: Performed By: #### A BG #### [facility] [address] [place] [address] Dr. Abelardo Barrett [facility] Comment on above: Performed By: #### A BG #### [facility] [address] [place] [address] Dr. Abelardo Barrett MINUTE VOLUME Normal [facility] Comment on above: Performed By: #### A BG #### [facility] [address] [place] [address] Dr. Abelardo Barrett Oxygen (Bld) [Partial pressure] 83.4 mm[Hg] Normal 80.0-100.0 [facility] Comment on above: Performed By: #### A BG #### [facility] [address] [place] [address] Dr. Abelardo Barrett Oxygen saturation in Blood 97.1 % Normal 95.0-100.0 [facility] Comment on above: Performed By: #### A BG #### [facility] [address] [place] [address] Dr. Abelardo Barrett PCO2 39.3 mmHg Normal 35.0-45.0 [facility] Comment on above: Performed By: #### A BG #### [facility] [address] [place] [address] Dr. Abelardo Barrett PEEP [facility] Comment on above: Performed By: #### A BG #### [facility] [address] [place] [address] Dr. Abelardo Barrett pH (Bld) 7.415 [pH] Normal 7.350-7.450 [facility] Comment on above: Performed By: #### A BG #### [facility] [address] [place] [address] Dr. Abelardo Barrett PIP [facility] Comment on above: Performed By: #### A BG #### [facility] [address] [place] [address] Dr. Abelardo Barrett PS [facility] Comment on above: Performed By: #### A BG #### [facility] [address] [address] [address] Abelardo Barrett PUNCTURE SITE RR Normal [facility] Comment on above: Performed By: #### A BG #### [facility] [address] [address] [address] Abelardo Barrett RATE [facility] Comment on above: Performed By: #### A BG #### [facility] [address] [address] [address] Abelardo Barrett VENT MODE [facility] Comment on above: Performed By: #### A BG #### [facility] [address] [address] [address] Abelardo Barrett VT [facility] Comment on above: Performed By: #### A BG #### [facility] [address] [address] [address] Abelardo Barrett Cardiovascular Lab Reporton 11-19-2021 Cardiovascular Lab Report [facility] #: [id number] Physician: Jian Frank, Department of M.D. Medicine Service Date: 11/19/2021 Division of Birthdate: 1945 Cardiology Room #: Adult Cardiovascular Services [place] [address] Cardiovascular Laboratory Report FINAL IMPRESSIONS: 1. Angiographically nonobstructive coronary arteries. 2. Normal global left ventricular systolic function by noninvasive imaging. RECOMMENDATIONS: 1. Consider alternate etiologies for the patient's shortness of breath, mainly pulmonary; pulmonary function tests have been ordered. 2. Aggressive cardiovascular risk factor modification. 3. Follow up with Dr. Frank in the next 3-4 weeks in the [place] office. 4. Follow up with Dr. Hernandez as scheduled. PROCEDURES: Ultrasound-guided access of the left radial artery, bilateral selective coronary angiography. METHODS: After risks, benefits, and alternatives were explained, written informed consent was obtained. The patient was prepped and draped in usual sterile fashion over the left wrist. Using 1% lidocaine solution, local infiltration anesthesia was achieved. Using a modified Seldinger technique and a micropuncture kit and under ultrasound guidance, access to the left radial artery was obtained. A 6-Anguillan sheath was inserted without difficulty. Bilateral selective coronary angiography was performed using 5-Anguillan JR4 and JL4 catheters. After reviewing the images, it was elected to conclude the procedure. All catheters were removed. The radial sheath was removed with application of a TR band per protocol to achieve optimal hemostasis. Overall, the patient tolerated the procedure well. There were no overt complications. She was to be transferred to the holding area in stable condition. FINDINGS: Hemodynamics. AO 131/73. LEFT VENTRICULOGRAPHY: This was not performed. Ejection fraction is normal by noninvasive imaging. CORONARY ARTERIES: Left main coronary artery. This arises from the left coronary cusp. It bifurcates into the left anterior descending and left circumflex coronary artery. It is free of significant stenosis. Left anterior descending coronary artery. This is angiographically nonobstructive. Left circumflex coronary artery. This is angiographically nonobstructive. Right coronary artery. This is a dominant vessel giving rise to the posterior descending and posterolateral branches. It is angiographically nonobstructive with caliber reduction in the mid to distal portion. INDICATIONS: Exertional shortness of breath, abnormal stress test. Electronically Signed by: Jian Frank M.D. 11/26/2021 05:05 P Jian Frank M.D. Date Dict: 11/19/2021/01:09 Kathleen/Jian Frank M.D. Date Trans: 11/19/2021 02:08 P/yennifer [id number] cc: Dorcas Hernandez M.D. [facility] [address] [facility] [id number] Normal [facility] Covid-19 PCR (CVDTBH)on 10-30 SARS-CoV-2 (COVID-19) RNA STEVE+probe Ql (Unsp spec) Not detected Normal NOT DETECTED [facility] Comment on above: Result Comment: This test is not yet approved or cleared by the [place] FDA. When there are no FDA-approved or cleared tests available, and other criteria are met, FDA can make tests available under an emergency access mechanism called an Emergency Use Authorization (EUA). The EUA for this test is supported by the [place] Inspector of Health and Human Service's (HHS's) declaration that circumstances exist to justify the emergency use of in vitro diagnostics for the detection and/or diagnosis of the virus that causes COVID-19. This EUA will remain in effect (meaning this test can be used) for the duration of the COVID-19 declaration justifying emergency of IVDs, unless it is terminated or revoked by FDA (after which the test may no longer be used). When diagnostic testing is negative, the possibility of a false negative should be considered in the context of a patient's recent exposures and the presence of clinical signs and symptoms consistent with SARS-CoV-2. Performed By: #### F T3, TSH, T4 #### [facility] [address] [place] [address] Dr. Abelardo Barrett CBC AUTO DIFFon 11-14-2021 BASO # 0.0 103/ul Normal 0.0-0.1 [facility] Comment on above: Performed By: #### F T3, TSH, T4 #### [facility] [address] [place] [address] Dr. Abelardo Barrett Basophils/100 WBC (Bld) 0.8 % Normal 0.2-2.0 [facility] Comment on above: Performed By: #### F T3, TSH, T4 #### [facility] [address] [place] [address] Dr. Abelardo Barrett EO # 0.1 103/ul Normal 0.0-0.7 [facility] Comment on above: Performed By: #### F T3, TSH, T4 #### [facility] [address] [place] [address] Dr. Abelardo Barrett Eosinophils/100 WBC (Bld) 2.1 % Normal 0.9-7.0 [facility] Comment on above: Performed By: #### F T3, TSH, T4 #### [facility] [address] [place] [address] Dr. Abelardo Barrett Erythrocyte distribution width (RBC) [Ratio] 12.0 % Normal 11.0-15.0 [facility] Comment on above: Performed By: #### F T3, TSH, T4 #### [facility] [address] [address] [address] Abelardo Barrett Hematocrit (Bld) [Volume fraction] 36.2 % Normal 36.0-48.0 [facility] Comment on above: Performed By: #### F T3, TSH, T4 #### [facility] [address] [address] [address] Abelardo Barrett Hemoglobin (Bld) [Mass/Vol] 11.6 g/dL Critically low 12.0-16.0 [facility] Comment on above: Performed By: #### F T3, TSH, T4 #### [facility] [address] [place] [address] Dr. Abelardo Barrett IG # 0.01 10e3/ul Normal 0.00-0.03 [facility] Comment on above: Performed By: #### F T3, TSH, T4 #### [facility] [address] [place] [address] Dr. Abelardo Barrett IG % 0.2 % Normal 0.0-0.5 [facility] Comment on above: Performed By: #### F T3, TSH, T4 #### [facility] [address] [place] [address] Dr. Abelrado Barrett LYMPH # 0.8 103/ul Critically low 1.2-3.8 [facility] Comment on above: Performed By: #### F T3, TSH, T4 #### [facility] [address] [place] [address] Dr. Abelardo Barrett Lymphocytes/100 WBC (Bld) 15.8 % Critically low 20.5-60.0 [facility] Comment on above: Performed By: #### F T3, TSH, T4 #### [facility] [address] [place] [address] Dr. Abelardo Barrett MANUAL DIFF REQ NO Normal [facility] Comment on above: Performed By: #### F T3, TSH, T4 #### [facility] [address] [address] [address] Abelardo Barrett MCH (RBC) [Entitic mass] 30.2 pg Normal 26.7-34.0 [facility] Comment on above: Performed By: #### F T3, TSH, T4 #### [facility] [address] [address] [address] Aeblardo Barrett MCHC (RBC) [Mass/Vol] 32.0 g/dL Normal 29.9-35.2 [facility] Comment on above: Performed By: #### F T3, TSH, T4 #### [facility] [address] [place] [address] Dr. Abelardo Barrett MCV (RBC) [Entitic vol] 94.3 fL Normal 81.0-99.0 [facility] Comment on above: Performed By: #### F T3, TSH, T4 #### [facility] [address] [place] [address] Dr. Abelardo Barrett MONO # 0.4 103/ul Normal 0.3-0.8 [facility] Comment on above: Performed By: #### F T3, TSH, T4 #### [facility] [address] [address] [address] Abelardo Barrett Monocytes/100 WBC (Bld) 8.3 % Normal 1.7-12.0 [facility] Comment on above: Performed By: #### F T3, TSH, T4 #### [facility] [address] [place] [address] Dr. Abelardo Barrett NEUT # 3.8 103/ul Normal 1.4-6.5 [facility] Comment on above: Performed By: #### F T3, TSH, T4 #### [facility] [address] [place] [address] Dr. Abelardo Barrett Neutrophils/100 WBC (Bld) 72.8 % Normal 43.0-75.0 [facility] Comment on above: Performed By: #### F T3, TSH, T4 #### [facility] [address] [place] [address] Dr. Abelardo Barrett Platelet mean volume (Bld) [Entitic vol] 8.6 fL Critically low 9.5-13.5 [facility] Comment on above: Performed By: #### F T3, TSH, T4 #### [facility] [address] [place] [address] Dr. Abelardo Barrett PLT 244 103/ul Normal 150-450 [facility] Comment on above: Performed By: #### F T3, TSH, T4 #### [facility] [address] [place] [address] Dr. Abelardo Barrett RBC 3.84 106/ul Critically low 4.20-5.40 [facility] Comment on above: Performed By: #### F T3, TSH, T4 #### [facility] [address] [place] [address] Dr. Abelardo Barrett WBC 5.2 103/ul Normal 4.0-11.0 [facility] Comment on above: Performed By: #### F T3, TSH, T4 #### [facility] [address] [place] [address] Dr. Abelardo Barrett PROF CHEM 8 (BAS METB)on Anion gap [Moles/Vol] 12.0 mmol/L Normal [facility] Comment on above: Performed By: #### B VIBHA HSTROPN #### [facility] [address] [place] [address] Dr. Abelardo Barrett Calcium [Mass/Vol] 9.2 mg/dL Normal 8.5-10.1 [facility] Comment on above: Performed By: #### B VIBHA HSTROPN #### [facility] [address] [place] [address] Dr. Abelardo Barrett Chloride [Moles/Vol] 101 mmol/L Normal 98-107 [facility] Comment on above: Performed By: #### B VIBHA HSTROPN #### [facility] [address] [place] [address] Dr. Abelardo Barrett CO2 [Moles/Vol] 26.3 mmol/L Normal 21.0-32.[address] [facility] Comment on above: Performed By: #### B VIBHA HSTROPN #### [facility] [address] [address] [address] Abelardo Barrett Creatinine [Mass/Vol] 0.90 mg/dL Normal 0.55-1.02 [facility] Comment on above: Performed By: #### B VIBHA, HSTROPN #### [facility] [address] [address] [address] Abelardo Barrett EGFR-AF CROATIAN >60 Normal >=[address] [facility] Comment on above: Performed By: #### B MP, HSTROPN #### [facility] [address] [address] [address] Abelardo Barrett EGFR-NON AF CROATIAN >60 Normal >=60 [facility] Comment on above: Performed By: #### B VIBHA, HSTROPN #### [facility] [address] [address] [address] Abelardo Barrett Glucose [Mass/Vol] 101 mg/dL Normal 74-106 [facility] Comment on above: Performed By: #### B VIBHA, HSTROPN #### [facility] [address] [address] [address] Abelardo Barrett Potassium [Moles/Vol] 4.3 mmol/L Normal 3.5-5.1 [facility] Comment on above: Performed By: #### B VIBHA, HSTROPN #### [facility] [address] [address] [address] Abelardo Barrett Sodium [Moles/Vol] 135 mmol/L Critically low 136-145 [facility] Comment on above: Performed By: #### B MP, HSTROPN #### [facility] [address] [address] [address] Abelardo Barrett Urea nitrogen [Mass/Vol] 34.0 mg/dL Critically high 7.0-18.0 [facility] Comment on above: Performed By: #### B MP, HSTROPN #### [facility] [address] [address] [address] Abelardo Barrett Urea nitrogen/Creatinine [Mass ratio] 37.8 mg/mg Normal [facility] Comment on above: Performed By: #### B MP, HSTROPN #### [facility] [address] [place], [place] [address] Dr. Abelardo Barrett TROPONIN, HIGH SENSITIVITYon 11-14-2021 HSTROP 5.8 pg/mL Normal 4.0-51.3 [facility] Comment on above: Result Comment: CUT- OFF POINTS HAVE BEEN ESTABLISHED BASED ON THE FOURTH UNIVERSAL DEFINITIONS OF MYOCARDIAL INFARCTION. THE UPPER REFERENCE LIMIT (URL) OF TROPONIN, DEFINED THE 99TH PERCENTILE OF cTnI DISTRIBUTION IN A REFERENCE POPULATION, HAS BEEN CONFIRMED THE DECISION THRESHOLD FOR GA DIAGNOSIS. Performed By: #### C MP, LIPID #### [facility] [address] [address] [address] Abelardo Barrett HSTROP 5.8 pg/mL Normal 4.0-51.3 [facility] Comment on above: Result Comment: CUT- OFF POINTS HAVE BEEN ESTABLISHED BASED ON THE FOURTH UNIVERSAL DEFINITIONS OF MYOCARDIAL INFARCTION. THE UPPER REFERENCE LIMIT (URL) OF TROPONIN, DEFINED THE 99TH PERCENTILE OF cTnI DISTRIBUTION IN A REFERENCE POPULATION, HAS BEEN CONFIRMED THE DECISION THRESHOLD FOR GA DIAGNOSIS. Performed By: #### B MP, HSTROPN #### [facility] [address] [address] [address] Abelardo Barrett XR CHEST 1 Von 11-14-2021 XR CHEST 1 V FRONTAL CHEST; 2021 11:40 AM EDT Clinical History:Syncope Comparison: None available . AP portable upright film. Cardiac leads. Osseous structures are grossly intact. Cardiac and mediastinal silhouettes are unremarkable. The bharathi are symmetric. No infiltrate or effusion. No failure. Granuloma left base. Lungs are well expanded. IMPRESSION: 1. No evidence of acute process. Electronically authenticated by: LETICIA HOYT Date: 2021-11-14 12:45 Normal [facility] CBC AUTO DIFFon 10-27-2021 BASO # 0.1 103/ul Normal 0.0-0.1 [facility] Comment on above: Performed By: #### C BC #### [facility] [address] [address] [address] Abelardo Barrett Basophils/100 WBC (Bld) 1.1 % Normal 0.2-2.0 [facility] Comment on above: Performed By: #### C BC #### [facility] [address] [address] [address] Abelardo Barrett EO # 0.2 103/ul Normal 0.0-0.7 [facility] Comment on above: Performed By: #### C BC #### [facility] [address] [place] [address] Dr. Abelardo Barrett Eosinophils/100 WBC (Bld) 3.9 % Normal 0.9-7.0 [facility] Comment on above: Performed By: #### C BC #### [facility] [address] [place] [address] Dr. Abelardo Barrett Erythrocyte distribution width (RBC) [Ratio] 12.1 % Normal 11.0-15.0 [facility] Comment on above: Performed By: #### C BC #### [facility] [address] [place] [address] Dr. Abelardo Barrett Hematocrit (Bld) [Volume fraction] 33.6 % Critically low 36.0-48.0 [facility] Comment on above: Performed By: #### C BC #### [facility] [address] [place] [address] Dr. Abelardo Barrett Hemoglobin (Bld) [Mass/Vol] 11.1 g/dL Critically low 12.0-16.0 [facility] Comment on above: Performed By: #### C BC #### [facility] [address] [place] [address] Dr. Abelardo Barrett IG # 0.01 10e3/ul Normal 0.00-0.03 [facility] Comment on above: Performed By: #### C BC #### [facility] [address] [place] [address] Dr. Abelardo Barrett IG % 0.2 % Normal 0.0-0.5 [facility] Comment on above: Performed By: #### C BC #### [facility] [address] [place] [address] Dr. Abelardo Barrett LYMPH # 1.3 103/ul Normal 1.2-3.8 [facility] Comment on above: Performed By: #### C BC #### [facility] [address] [place] [address] Dr. Abelardo Barrett Lymphocytes/100 WBC (Bld) 28.5 % Normal 20.5-60.0 [facility] Comment on above: Performed By: #### C BC #### [facility] [address] [place] [address] Dr. Abelardo Barrett MANUAL DIFF REQ NO Normal [facility] Comment on above: Performed By: #### C BC #### [facility] [address] [place] [address] Dr. Abelardo Barrett MCH (RBC) [Entitic mass] 30.8 pg Normal 26.7-34.0 [facility] Comment on above: Performed By: #### C BC #### [facility] [address] [place] [address] Dr. Abelardo Barrett MCHC (RBC) [Mass/Vol] 33.0 g/dL Normal 29.9-35.2 [facility] Comment on above: Performed By: #### C BC #### [facility] [address] [place] [address] Dr. Abelardo Barrett MCV (RBC) [Entitic vol] 93.3 fL Normal 81.0-99.0 [facility] Comment on above: Performed By: #### C BC #### [facility] [address] [place] [address] Dr. Abelardo Barrett MONO # 0.5 103/ul Normal 0.3-0.8 [facility] Comment on above: Performed By: #### C BC #### [facility] [address] [place] [address] Dr. Abelardo Barrett Monocytes/100 WBC (Bld) 11.1 % Normal 1.7-12.0 [facility] Comment on above: Performed By: #### C BC #### [facility] [address] [place] [address] Dr. Abelardo Barrett NEUT # 2.5 103/ul Normal 1.4-6.5 [facility] Comment on above: Performed By: #### C BC #### [facility] [address] [address] [address] Abelardo Barrett Neutrophils/100 WBC (Bld) 55.2 % Normal 43.0-75.0 [facility] Comment on above: Performed By: #### C BC #### [facility] [address] [address] [address] Abelardo Barrett Platelet mean volume (Bld) [Entitic vol] 9.1 fL Critically low 9.5-13.5 [facility] Comment on above: Performed By: #### C BC #### [facility] [address] [address] [address] Abelardo Barrett PLT 241 103/ul Normal 150-450 [facility] Comment on above: Performed By: #### C BC #### [facility] [address] [address] [address] Abelardo Barrett RBC 3.60 106/ul Critically low 4.20-5.40 [facility] Comment on above: Performed By: #### C BC #### [facility] [address] [address] [address] Abelardo Barrett WBC 4.6 103/ul Normal 4.0-11.0 [facility] Comment on above: Performed By: #### C BC #### [facility] [address] [place], [place] [id number] Dr. Abelardo Barrett ECHOCARDIO M/2D COMPLETEon 0 10-27-2021 ECHOCARDIO M/2D COMPLETE Patient: ANASTASIA PONCE Exam Date: 10/27/2021 : 1945 Gender:F Ordering : DR DORCAS HERNANDEZ . Admission #: [id number] Family : Order #: [id number] CLICK HERE TO VIEW EXAM ECHOCARDIOGRAM REPORT PROCEDURE: CARDIO PULMONARY ECHOCARDIO M/2D COMP INDICATIONS: Chest pain, Dyspnea COMPARISON: None. DESCRIPTION: COMPLETE ECHOCARDIOGRAM Real-time transthoracic echocardiography with 2D, M-mode, spectral and color flow Doppler performed. QUALITY: Technical quality was good. LEFT VENTRICLE: Normal chamber size. Mild concentric left ventricular hypertrophy. Global left ventricular systolic function is normal. Abnormal septal motion may be due to bundle branch block. Calculated left ventricular ejection fraction is 56%. LV EF: DIASTOLIC: Normal diastolic function. ATRIAL SEPTUM: LEFT ATRIUM: Mild dilatation. RIGHT ATRIUM: Normal chamber size. RIGHT VENTRICLE: Normal chamber size. Normal right ventricular systolic function. TRICUSPID VALVE: Normal mobility and thickness. No stenosis with mild regurgitation. No evidence of pulmonary hypertension. RVSP 30 mmHg. MITRAL VALVE: Normal mobility and thickness. No mitral valve prolapse. No evidence of mitral valve stenosis. There is no mitral annular calcification. Mild mitral regurgitation. AORTIC VALVE: Normal trileaflet appearance. Mildly calcified aortic valve. Normal leaflet mobility. No evidence of aortic valve stenosis. No aortic regurgitation. AORTIC ROOT: Normal diameter and appearance. PULMONIC VALVE: Normal thickness and mobility. No stenosis. Trivial regurgitation. PERICARDIUM: No evidence of pericardial effusion. IVC: Collapses with inspirations. Normal in size. PLEURA: CONCLUSION: 1. Normal ventricular systolic function. LVEF is 55%. 2. Normal diastolic function. 3. Mild mitral and tricuspid regurgitation. 4. Normal right-sided pressures. 5. No pericardial effusion. Adult Echocardiography Procedure Report Left Ventricle LVEDD (3.7 - 5.6 cm): 3.85 cm LVESD (2.2 - 4.0 cm): 2.72 cm LVIVS thickness (0.6 - 1.2 cm): 1.25 cm LVPW thickness (0.5 - 1.0 cm): 8.95 mm e': 13.00 cm/s E - e': 6.90 LVOT Area (cm2): 3.14 cm2 LVOT Diameter 2.00 cm Left Ventricular Ejection Fraction: 55 % Left Atrium LA Volume Index (2D A2C): 42.70 ml/m2 Left Atrium Systolic Dimension: 3.10 cm Left Atrium Systolic Area(A2C): 21.70 cm2 Left Atrium Systolic Area(A4C): 17.20 cm2 Left Atrium Systolic Volume(A2C): 56842 mm3 Left Atrium Systolic Volume(A4C): 67600 mm3 Mitral Valve MV E to A Ratio: 0.80 Deceleration [place]: 2480 mm/s2 Mitral Valve A-Wave Peak Velocity: 115.00 cm/s Mitral Valve E-Wave Peak Velocity: 90.30 cm/s Right Ventricle RV Internal Diastolic Dimension: 3.39 cm Aorta AO Root Diam: 2.90 cm Aortic Valve AoV Area (Peak Zeeshan): 2.36 cm2 AoV Area (VTI): 2.14 cm2 Aortic Valve Cusp Separation: 1.90 cm Peak Velocity(Antegrade Flow): 213.00 cm/s Peak Gradient(Antegrade Flow): 18 mm[Hg] Mean Velocity(Antegrade Flow): 134.00 cm/s Mean Gradient(Antegrade Flow): 9 mm[Hg] Velocity Time Integral: 39.50 cm Tricuspid Valve Peak Velocity (Regurgitant Flow): 229.00 cm/s Pulmonic Valve Mean Gradient: 5 mm[Hg] Mean Velocity: 97.90 cm/s Peak Velocity: 175.00 cm/s Peak Gradient: 12 mm[Hg] Right Atrium Dictated by: Kristian Mayberry M.D. on 10/27/2021 at 19:33 Approved by: Kristian Mayberry M.D. on 10/27/2021 at 19:38 Normal [facility] FREE T3on 10-27-2021 FREE T3 4.10 pg/mlL Critically high 2.18-3.[address] [facility] Comment on above: Performed By: #### F T3, TSH, T4 #### [facility] [address] [address] [address] Abelardo Barrett GLYCOHEMOGLOBIN A1Con 2021 ADA RECOMMENDATION SEE BELOW Normal [facility] Comment on above: Result Comment: ADA RECOMMENDED LIMIT 4.0 - 6.0 ADA THERAPEUTIC TARGET < 7.0 ACTION SUGGESTED > 7.0 Performed By: #### F T3, TSH, T4 #### [facility] [address] [address] [address] Abelardo Barrett Glucose [Mass/Vol] 123 mg/dL Normal [facility] Comment on above: Performed By: #### F T3, TSH, T4 #### [facility] [address] [address] [address] Abelardo Barrett HbA1c (Bld) [Mass fraction] 5.9 % Normal 4.5-6.2 [facility] Comment on above: Performed By: #### F T3, TSH, T4 #### [facility] [address] [address] [address] Abelardo Barrett IRONon 10-27-2021 Iron [Mass/Vol] 63.0 ug/dL Normal 50.0-170.0 [facility] Comment on above: Performed By: #### C MP, LIPID #### [facility] [address] [address] [address] Abelardo Barrett LIPID PROFILEon 10-27-2021 CHOL-HDL RATIO NORM SEE BELOW Normal [facility] Comment on above: Result Comment: 3.3 - 4.4 LOW RISK 4.4 - 7.1 AVERAGE RISK 7.1 - 11.0 MODERATE RISK >11.0 HIGH RISK Performed By: #### C MP, LIPID #### [facility] [address] [address] [address] Abelardo Barrett Cholesterol [Mass/Vol] 163 mg/dL Normal <=200 [facility] Comment on above: Performed By: #### C MP, LIPID #### [facility] [address] [address] [address] Abelardo Barrett Cholesterol in HDL [Mass/Vol] 74 mg/dL Critically high 40-60 [facility] Comment on above: Performed By: #### C MP, LIPID #### [facility] [address] [address] [address] Abelardo Barrett Cholesterol in LDL [Mass/Vol] 79.2 mg/dL Normal [facility] Comment on above: Performed By: #### C MP, LIPID #### [facility] [address] [address] [address] Abelardo Barrett Cholesterol.total/C holesterol in HDL [Mass ratio] 2.2 {ratio} Normal [facility] Comment on above: Performed By: #### C MP, LIPID #### [facility] [id number] Abelardo Barrett HDL NORMAL > or = 60 mg/dl - LO W CARDIOVASCULAR RISK <40 mg/dl - HIGH CARDIOVASCULAR RISK Normal [facility] Comment on above: Performed By: #### C MP, LIPID #### [facility] [address] [address] [address] Abelardo Barrett LDL CALC NORMAL SEE BELOW Normal [facility] Comment on above: Result Comment: <100 mg/dl OPTIMAL 100 - 129 mg/dl NEAR OR ABOVE OPTIMAL 130 - 159 mg/dl BORDERLINE HIGH 160 - 189 mg/dl HIGH >190 mg/dl VERY HIGH Performed By: #### C MP, LIPID #### [facility] [address] [address] [address] Abelardo Barrett Triglyceride [Mass/Vol] 49 mg/dL Normal <=150 [facility] Comment on above: Performed By: #### C MP, LIPID #### [facility] [address] [address] [address] Abelardo Barrett VLDL CALC 9.8 mg/dL Normal [facility] Comment on above: Performed By: #### C MP, LIPID #### [facility] [id number] Abelardo Barrett NM STRESS/REST MULTIon 10-27 NM STRESS/REST MULTI Patient: ANASTASIA PONCE Exam Date: 10/27/2021 : 1945 Gender:F Ordering : DR DORCAS HERNANDEZ . Admission #: [id number] Family : Order #: [id number] CLICK HERE TO VIEW EXAM RADIOLOGY REPORT PROCEDURE: RADIONUCLIDE IMAGING STRESS/REST MULTI COMPARISON: None. INDICATIONS: Insomnia, palpitations TECHNIQUE: Exam Description: Stress/Rest one day protocol gated SPECT Rest Imagin.9 mCi Tc-99m Cardiolite IV on 10/27/2021 Stress Imaging 30.5 mCi Tc-99m Cardiolite IV on 10/27/2021 Exercise Protocol: Sharan Heart Rate (bpm): Rest: 81 Max: 131 PMHR: 89 Blood Pressure: Rest: 132/78 Max: 164/82 Exercise Time: Minutes: 5 Seconds: 00 Stage Reached: Stage: 2 Mets 7.0 Symptoms: shortness of breath Rest and peak stress ECG findings were non-diagnostic and the exercise portion of the study was normal per attending physician Dr. Carter due topresence of LBBB. For more details please see separate cardiac stress test report. FINDINGS: QUALITY OF STUDY: Good. PERFUSION DEFECT: LOCATION: Basal anteroseptal. Basal inferoseptal. Mid-anteroseptal. Mid-inferoseptal. Apical septal. [place]. SIZE: Large (5 or more segments). SEVERITY: Moderate. TYPE: Mixed. WALL MOTION: Normal. Basal inferoseptal. Mid-anterior. Mid-anteroseptal. [place]. LV SIZE: Normal. 63 mL. TID / TCD: None; 0.86 LVEF: Normal. Calculated EF 67%. SUMMARY: Myocardial perfusion imaging study has ABNORMAL findings. CONCLUSION: 1. Moderate sized area of moderately decreased uptake in the anterior wall extending to the apex and inferior wall, LAD and RCA distributions. This demonstrates a small amount of reversible ischemia in a single segment, mid anterioseptal. 2. Abnormal exercise test secondary to left bundle branch block Dictated by: Saranya Spaulding MD on 10/27/2021 at 12:05 Approved by: Saranya Spaulding MD on 10/27/2021 at 12:10 Normal [facility] PROF 14(COMP METB)on 022 Albumin [Mass/Vol] 3.2 g/dL Critically low 3.4-5.0 [facility] Comment on above: Performed By: #### C MP, LIPID #### [facility] [address] [place] [address] Dr. Abelardo Barrett Albumin/Globulin [Mass ratio] 0.9 {ratio} Normal [facility] Comment on above: Performed By: #### C MP, LIPID #### [facility] [address] [place] [address] Dr. Abelardo Barrett ALP [Catalytic activity/Vol] 50 U/L Normal 46-116 [facility] Comment on above: Performed By: #### C MP, LIPID #### [facility] [address] [place] [address] Dr. Abelardo Barrett ALT [Catalytic activity/Vol] 38 U/L Normal 14-59 [facility] Comment on above: Performed By: #### C MP, LIPID #### [facility] [address] [place] [address] Dr. Abelardo Barrett Anion gap [Moles/Vol] 13.4 mmol/L Normal [facility] Comment on above: Performed By: #### C MP, LIPID #### [facility] [address] [place] [address] Dr. Abelardo Barrett AST [Catalytic activity/Vol] 27 U/L Normal 15-37 [facility] Comment on above: Performed By: #### C MP, LIPID #### [facility] [address] [address] [address] Abelardo aBrrett Bilirubin [Mass/Vol] 0.4 mg/dL Normal 0.2-1.0 [facility] Comment on above: Performed By: #### C MP, LIPID #### [facility] [address] [address] [address] Abelardo Barrett Calcium [Mass/Vol] 8.6 mg/dL Normal 8.5-10.1 [facility] Comment on above: Performed By: #### C MP, LIPID #### [facility] [address] [address] [address] Abelardo Barrett Chloride [Moles/Vol] 107 mmol/L Normal 98-107 [facility] Comment on above: Performed By: #### C MP, LIPID #### [facility] [address] [address] [address] Abelardo Barrett CO2 [Moles/Vol] 24.7 mmol/L Normal 21.0-32.[address] [facility] Comment on above: Performed By: #### C MP, LIPID #### [facility] [address] [address] [address] Abelardo Barrett Creatinine [Mass/Vol] 0.75 mg/dL Normal 0.55-1.02 [facility] Comment on above: Performed By: #### C MP, LIPID #### [facility] [address] [address] [address] Abelardo Barrett EGFR-AF CROATIAN >60 Normal >=60 [facility] Comment on above: Performed By: #### C MP, LIPID #### [facility] [address] [address] [address] Abelardo Barrett EGFR-NON AF CROATIAN >60 Normal >=60 [facility] Comment on above: Performed By: #### C MP, LIPID #### [facility] [address] [place] [address] Dr. Abelardo Barrett Globulin (S) [Mass/Vol] 3.4 g/dL Normal [facility] Comment on above: Performed By: #### C MP, LIPID #### [facility] [address] [address] [address] Abelardo Barrett Glucose [Mass/Vol] 92 mg/dL Normal 74-106 [facility] Comment on above: Performed By: #### C MP, LIPID #### [facility] [address] [address] [address] Abelardo Barrett Potassium [Moles/Vol] 4.1 mmol/L Normal 3.5-5.1 [facility] Comment on above: Performed By: #### C MP, LIPID #### [facility] [address] [address] [address] Abelardo Barrett Protein [Mass/Vol] 6.6 g/dL Normal 6.4-8.2 [facility] Comment on above: Performed By: #### C MP, LIPID #### [facility] [address] [address] [address] Abelardo Barrett Sodium [Moles/Vol] 141 mmol/L Normal 136-145 [facility] Comment on above: Performed By: #### C MP, LIPID #### [facility] [address] [address] [address] Abelardo Barrett Urea nitrogen [Mass/Vol] 29.0 mg/dL Critically high 7.0-18.0 [facility] Comment on above: Performed By: #### C MP, LIPID #### [facility] [address] [address] [address] Abelardo Barrett Urea nitrogen/Creatinine [Mass ratio] 38.7 mg/mg Normal [facility] Comment on above: Performed By: #### C MP, LIPID #### [facility] [address] [address] [address] Abelardo Barrett T4on 10-27-2021 T4 [Mass/Vol] 9.40 ug/dL Normal 4.80-13.90 [facility] Comment on above: Performed By: #### F T3, TSH, T4 #### [facility] [address] [address] [address] Abelardo Barrett TSHon 10-27-2021 TSH Qn m[IU]/L Critically low 0.358-3.740 [facility] Comment on above: Performed By: #### F T3, TSH, T4 #### [facility] [address] [place] [address] Dr. Abelardo Barrett T4 [facility] 10-01-2021 T4 [Mass/Vol] 9.4 ug/dL Normal 4.5-12.0 [facility] Comment on above: Performed By: #### T 4LC #### [facility] [address] [place] [address] Dr. Abelardo Barrett FREE T3on 09-30-2021 FREE T3 4.05 pg/mlL Critically high 2.18-3.98 [facility] Comment on above: Performed By: #### F T3, TSH, T4 #### [facility] [address] [place] [address] Dr. Abelardo Barrett TSHon 09-30-2021 TSH Qn m[IU]/L Critically low 0.358-3.740 [facility] Comment on above: Performed By: #### F T3, TSH, T4 #### [facility] [address] [place] [address] Dr. Abelardo Barrett TSH RANGE SEE BELOW Normal [facility] Comment on above: Result Comment: <0.3 4 UIU/ml HYPERTHYROID 0.34-5.60 UIU/ml EUTHYROID >5.60 UIU/ml HYPOTHYROID Performed By: #### F T3, TSH, T4 #### [facility] [address] [place] [address] Dr. Abelardo Barrett FREE T3on 08-14-2021 FREE T3 1.73 pg/mlL Critically low 2.77-5.27 [facility] Comment on above: Performed By: #### C MP, LIPID #### [facility] [address] [place] [address] Dr. Abelardo Barrett T4on 08-14-2021 T4 [Mass/Vol] 4.40 ug/dL Critically low 5.53-11.00 [facility] Comment on above: Performed By: #### C MP, LIPID #### [facility] [address] [address] [address] Abelardo Barrett TSHon 08-14-2021 TSH 0.349 uIU/mL Critically low 0.470-4.680 The [facility] Comment on above: Performed By: #### C MP, LIPID #### [facility] [address] [address] [address] Abelardo Barrett TSH RANGE SEE BELOW Normal [facility] Comment on above: Result Comment: <0.3 4 UIU/ml HYPERTHYROID 0.34-5.60 UIU/ml EUTHYROID >5.60 UIU/ml HYPOTHYROID Performed By: #### C MP, LIPID #### [facility] [address] [address] [address] Abelardo Barrett Outside Colonoscopyon 2020 Outside Colonoscopy [id number]: 127 Normal [facility] RAD - MISCon 05-14-2020 RAD - MISC [id number]: 127 Normal [facility] Lab Reportson 05-12-2020 Lab Reports [id number]: 127 Normal [facility] Provider Letter FTMCon 05-07 Provider Letter [place] Dorcas Hernandez, [address] [place] [place] [address] Re: ANASTASIA PONCE Date of : 1945 Thank you for your referral of Anastasia Ponce who was seen on consultation on April 30, 2020, for positive occult stool. A colonoscopy is planned for further evaluation. I have enclosed my consultation notes for your review. I will be happy to follow Anastasia should her symptoms persist. Sincerely, Ajith Renee MD General Surgery [facility] Consent for Procedure/Surger yon 05-06-2020 Consent for Procedure/Surgery [id number]: 127 [facility] Facesheeton 05-01-2020 Facesheet [id number]: 127 Normal [facility] Ambulatory Clinical Summaryo n 04-30-2020 Ambulatory Clinical Summary {[id number] }CD:[id number] Normal [facility] Ambulatory Clinical Summary {[id number] }CD:[id number] Normal [facility] Physician Referralon 020 Physician Referral [id number]: 127 [facility] Vital Signs Date Time Vital Sign Value Performing Clinician Faci lity 05-27-2022 16:10-0500 Body temperature 96.4 [degF] Saranya Durham MD Work Phone: [email or web address] 05-27-2022 16:10-0500 Diastolic blood pressure 72 mm[Hg] Saranya Durham MD Work Phone: [facility] 05-27-2022 16:10-0500 Heart rate 81 /min Saranya Durham MD Work Phone: [facility] 05-27-2022 16:10-0500 SaO2% (BldA) [Mass fraction] 99 % Saranya Durham MD Work Phone: [facility] 05-27-2022 16:10-0500 Systolic blood pressure 145 mm[Hg] Saranya Durham MD Work Phone: [facility] 05-27-2022 14:30-0500 Respiratory rate 15 /min Saranya Durham MD Work Phone: [facility] 07-29-2021 09:16-0400 Body height 162.6 cm Gertrudis Encarnacion MD Work Phone: [employer] 07-29-2021 09:16-0400 Body mass index (BMI) [Ratio] 23.34 kg/m2 Gertrudis Encarnacion MD Work Phone: [facility] 07-29-2021 09:16-0400 Body temperature 97.59 [degF] Gertrudis Enacrnacion MD Work Phone: [facility] 07-29-2021 09:16-0400 Body weight 61.69 kg Gertrudis Encarnacion MD Work Phone: [facility] 07-29-2021 09:16-0400 Diastolic blood pressure 85 mm[Hg] Gertrudis Encarnacion MD Work Phone: [facility] 07-29-2021 09:16-0400 Heart rate 91 /min Gertrudis Encarnacion MD Work Phone: [facility] 07-29-2021 09:16-0400 Systolic blood pressure 144 mm[Hg] Gertrudis Encarnacion MD Work Phone: [facility] Encounters Encounter Date Encounter Type Care Provider Facility Start: 05-10-2023 End: 05-10-2023 ambulatory ELOISA A PETITTI Not Available Start: 03-29-2023 End: 03-29-2023 ambulatory ELOISA A PETITTI Not Available Start: 03-15-2023 End: 03-15-2023 ambulatory MELISSA Gtz FELTER Not Available Start: 10-20-2022 End: 10-20-2022 ambulatory Gertrudis Encarnacion Facility:[facility] Start: 06-15-2022 End: 06-16-[address] DOCTOR BANDA Facility:[facility] Start: 06-01-2022 End: 06-01-[address] NIKUNJ LINDSEY Facility:[facility] Start: 05-27-2022 End: 05-27-2022 Evaluation and management of inpatient SARANYA DURHAM [facility] Start: 05-27-2022 End: 05-27-2022 Evaluation and management of inpatient Saranya Durham MD Work Phone: [facility] Comment on above: 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 Facility:[facility] Start: 01-15-2022 End: 01-16-[address] DORCAS HERNANDEZ . Facility:[facility] Start: 12-14-2021 End: 12-15-[address] JIAN FRANK Facility:[facility] Start: 11-19-2021 End: 11-20-2021 ambulatory DORCAS HERNANDEZ Facility:[facility] Start: 11-18-2021 Encounter for preprocedural laboratory examination ELA MELTON [facility] Start: 11-17-2021 End: 11-18-2021 ambulatory ELA LINH Facility:[facility] Start: 11-17-2021 End: 11-18-2021 Encounter for preprocedural laboratory examination ELA LINH Facility:[facility] Start: 11-14-2021 End: 11-14-2021 ambulatory NIKHIL GIORDANO Facility:[facility] Start: 11-03-2021 End: 11-16-2021 ambulatory DORCAS HERNANDEZ Facility:[facility] Start: 10-29-2021 End: 10-29-[address] DORCAS HERNANDEZ . Facility:[facility] Start: 10-27-2021 End: 10-28-[address] DORCAS HERNANDEZ . Facility:[facility] Start: 09-30-2021 End: 10-01-[address] DORCAS HERNANDEZ . Facility:[facility] Start: 08-14-2021 End: 08-15-[address] DOCRAS HERNANDEZ . Facility:[facility] Start: 07-29-2021 End: 07-29-2021 Patient encounter procedure Gertrudis Encarnacion MD Work Phone: [facility] Comment on above: Rhytides (Primary Dx ); Atrophic skin Procedures Date Procedure Procedure Detail Performing Clinician Start: 05-27-2022 Culture fngi mold/ye ast prsmptv oth xcpt blood Saranya Durham MD Work Phone: Start: 05-27-2022 Radiologic examinati on pelvis 1/2 views Anu SNIDER Work Phone: Start: 05-27-2022 XR FLUORO UP TO 1 HO UR (STATISTICS)(NO REPORT) Saranya Durham MD Work Phone: Start: 05-27-2022 Culture fngi mold/ye ast prsmptv oth xcpt blood Saranya Durham MD Work Phone: Start: 05-27-2022 Antibody screen SARANYA OAK[facility] Comment on above: Performed By: #### 3 4532-2 #### [facility] [address] [place] [address] Start: 05-27-2022 POCT GLUCOSE BLOOD Cuba Durham MD Work Phone: Start: 05-27-2022 Sars-cov-2 detection by dna/rna Saranya Durham MD Work Phone: Start: 05-27-2022 Antibody screen rbc each serum technique Saranya Durham MD Work Phone: Start: 05-17-2022 Antibody screen SARANYA OAKES Comment on above: Performed By: #### 3 [id number] #### [facility] [address] [place] [address] Plan of Treatment Date Care Activity Detail Author Start: 05-27-2023 Falls Risk Assessment Falls Risk Ass essment [facility] Start: 05-17-2023 Hypertension/CHF/CAD Annual BMP Blood Test Hypertension/CHF/CAD Annual BMP Blood Test [facility] Start: 05-17-2022 Adolescent depressio n screening assessment Depression Screening [facility] Start: 05-17-2022 Hepatitis C screening Hepatitis C Sc reening [facility] Start: 05-17-2022 Lipid panel Cholesterol Sc reening (Lipid Panel) [facility] Start: 05-17-2022 Medicare Annual Well ness Visit Medicare Annual Wellness Visit [facility] Start: 05-17-2022 Screening for malign ant neoplasm of breast Breast Cancer Screening [facility] Start: 05-17-2022 Screening for malign ant neoplasm of colon Colorectal Cancer Screening: Colonoscopy [facility] Start: 05-17-2022 Screening for osteoporosis Osteoporosis Screening (Bone Density Screening) [facility] Start: 05-17-2022 Social Influencers o f Health Screening Social Influencers of Health Screening [facility] Start: 04-23-2021 COVID-19 VACCINE (2 - Pfizer 3-dose series) COVID-19 VACCINE (2 - Pfizer 3-dose series) [facility] Start: 04-23-2021 COVID-19 Vaccine (2 - Pfizer series) COVID-19 Vaccine (2 - Pfizer series) [facility] Start: 12-31-2020 Influenza vaccination INFLUENZA VACC INE (#1) [facility] Start: 12-24-2012 Pneumococcal vaccination PNEUM OCOCCAL VACCINE SERIES (1 of 1 - PPSV23) [facility] Start: 12-24-1997 Zoster vaccine hzv l cata for subcutaneous use ZOSTER (SHINGLES) VACCINE (1 of 2) [facility] Start: 12-24-1997 Zoster Vaccines (1 of 2) Zoster Vacc maury (1 of 2) [facility] Start: 12-24-1992 Colonoscopy COLORECTAL CAN CER SCREENING DISCUSSION [facility] Start: 1987 Fasting lipid profile LIPID SCREENIN G [facility] Start: 1987 Screening mammography MAMMOGRA M SCREENING DISCUSSION [facility] Start: 12-24-1968 Screening for malign ant neoplasm of cervix CERVICAL CANCER SCREENING DISCUSSION [facility] Start: 12-24-1966 DTaP,Tdap,and Td Vac cines (1 - Tdap) DTaP,Tdap,and Td Vaccines (1 - Tdap) [facility] Start: 12-24-1966 Third diphtheria, te tanus and acellular pertussis (DTaP) vaccination TDAP (ADULT) [facility] Start: 12-24-1965 Tetanus vaccination TETANUS [facility] Start: 1945 Hepatitis C antibody , confirmatory test HEPATITIS C VIRUS SCREENING [facility] Start: 1945 Screening for osteoporosis DEXA SCAN DISCUSSION [facility] Bacteria identified in Tissue by Culture Culture tissue with gram stain Microbiology Routine Other mechanical complication of internal left hip prosthesis, initial encounter ([facility]) 05/27/2022 11:30 AM EST [facility] Bacteria identified in Tissue by Culture Culture tissue with gram stain Microbiology Routine 05/27/2022 3:08 PM EST [facility] End: 05-27-2022 Bacteria identified in Unspecified specimen by Anaerobe culture [facility] Work Phone: Comment on above: Release Upon Orderin g for 1 Occurrences starting 05/27/2022 Once for 1 Occurrenc es starting 05/27/2022 until 05/27/2022 Bacteria identified in Unspecified specimen by Anaerobe culture Culture anaerobic Microbiology Routine 05/27/2022 3:08 PM EST [facility] Fungus identified in Skin by Culture Culture fungal, other Microbiology Routine Other mechanical complication of internal left hip prosthesis, initial encounter ([facility]) 05/27/2022 11:30 AM EST [facility] Fungus identified in Skin by Culture Culture fungal, other Microbiology Routine 05/27/2022 3:08 PM EST [facility] Mycobacterium sp identified in Unspecified specimen by Organism specific culture Culture AFB Microbiology Routine Other mechanical complication of internal left hip prosthesis, initial encounter ([facility]) 05/27/2022 11:30 AM EST [facility] Mycobacterium sp identified in Unspecified specimen by Organism specific culture Culture AFB Microbiology Routine 05/27/2022 3:08 PM EST [facility] Comment on above: Release Upon Orderin g for 1 Occurrences starting 05/27/2022, 1 completed Immunizations Immunization Date Immunization Notes Care Provider [facility] 04-09-2020 influenza virus vaccine, unspecified formulation Gertrudis Encarnacion MD Work Phone: [facility] Payers Date Payer Category Payer Self-pay 2022 Medicare [employer] MEDICARE A DVANTAGE AETNA MEDICARE ADVANTAGE [id number] 2022-Present [phone] [address] [place] [address] [id number] 2021 Unknown [id number] [id number] 1959 Medicare [id number] 1957 Medicare [id number] 1945 Unknown [id number] 2.16.840.1.665283.3.579.2.647 1945 Unknown [id number] 2.16.840.1.624341.3.579.2.647 1945 Unknown [id number] 2.16.840.1.367521.3.579.2.1143 1945 Unknown [id number] 2.16.840.1.402640.3.579.2.1143 1945 Unknown [id number] 2.16.840.1.379745.3.579.2.593 1945 Unknown [id number] 2.16.840.1.493875.3.579.2.593 1947 Unknown [id number] 2.16.840.1.759348.3.579.2.593 1947 Unknown [id number] 2.16.840.1.773542.3.579.2.593 1947 Unknown [id number] 2.16.840.1.770986.3.579.2.593 1947 Unknown [id number] 2.16.840.1.588679.3.579.2.593 1947 Unknown [id number] 2.16.840.1.687158.3.579.2.593 1947 Unknown [id number] 2.16.840.1.558543.3.579.2.593 1947 Unknown [id number] 2.16.840.1.299334.3.579.2.593 1947 Unknown [id number] 2.16.840.1.766681.3.579.2.593 1947 Unknown [id number] 2.16.840.1.591614.3.579.2.593 1947 Unknown [id number] 2.16.840.1.091258.3.579.2.593 1947 Unknown [id number] 2.16.840.1.091040.3.579.2.1259 1947 Unknown [id number] 2.16.840.1.257732.3.579.2.1259 1947 Unknown [id number] 2.16.840.1.832945.3.579.2.1259 Unknown [id number] Unknown [id number] 2.16.840.1.542065.3.579.2.462 Social History Date Type Detail Facility Start: 03-10-2021 End: 05-27-2022 Tobacco smoking status NHIS Never smoked tobacco [facility] Start: 03-10-2021 End: 05-27-2022 Tobacco use and exposure Smokeless tobacco non-user [facility] Start: 07-29-2021 Alcohol intake Ex-drinker (finding) [facility] Start: 03-10-2021 History SDOH Alcohol Frequency 1 [facility] Start: 1945 Sex Assigned At Not on file A [facility] Start: 05-27-2022 Alcohol intake Lifetime non-d ariel (finding) [facility] Start: 05-17-2022 End: 05-27-2022 Exposure to SARS-CoV-2 (event) Not sure [facility] Medical Equipment Procedure Code Equipment Code Equipment Origin al Text Equipment Identifier Dates Hip Hd Option Bl x [facility] 32mm - Sna - [id number] 21)NA, [id number] [facility] Start: 05-27-2022 Clinical Notes 04-30-2020 to 06-01-2022 Gaby Sanchez RN - 05/27/2022 5:59 PM Lalo Sanchez RN - 05/27/2022 5:57 PM Guy Pope RN - 05/27/2022 5:30 PM Guy Pope RN - 05/27/2022 4:53 PM EST Note Date & Type Note Facility 06-01-2022 Note PROCEDURE: XR HIP LT 2 3V W PELVIS HISTORY: Traumatic injury ; left hip replacement 5 days ago; acute pain after falling COMPARISON: XR hip left 03/30/2022 FINDINGS: BONES:Total left hip replacements with revision of hardware since 03/30/2022 study. Large separate bone fragment 3.3 x 1.6 cm projecting cephalad to the neck of the prosthetic device, likely representing avulsion of the superior tip of the greater trochanter. SOFT TISSUES:No visible soft tissue swelling. EFFUSION:None visible. OTHER: Negative. IMPRESSION: 1. Large avulsed fragment from the tip of the left greater trochanter, likely acute. No recent radiographs since hardware revision to allow for comparison. Electronically authenticated by: FER JUAREZ Date: 2022-06-01 12:03 [facility] 05-27-2022 History of Present illness Narrative Met all goals, d/c'd to home with sister. Medicated, all questions answered, assisted to front entrance by staff. Goals: Met Identify possible barriers to meeting goals/advancing plan of care: none Stability of the patient: stable End of Shift Summary: Met all goals, stable for d/c with no barriers. Problem: Health Behavior: Goal: Patient Specific Outcome Outcome: Completed Problem: Sensory: Goal: Demonstrates/reports adequate pain control Outcome: Completed Problem: Coping: Goal: Verbalizations of alleviation of anxiety will increase Outcome: Completed Problem: Cognitive: Goal: Knowledge of disease or condition will improve Outcome: Completed Problem: Physical Regulation: Goal: Postoperative complications will be avoided or minimized Outcome: Completed Goal: Ability to maintain clinical measurements within normal limits will improve Outcome: Completed Problem: Skin Integrity: Goal: Patient will remain free of injury and skin integrity maintained Outcome: Completed Problem: Respiratory: Goal: Knowledge of JESUS (Obstructive Sleep Apnea) risk and follow-up will improve Outcome: Completed Problem: Cognitive: Goal: Last Known Fall Outcome: Completed Goal: Mobility requiring assistance of person or device Outcome: Completed Goal: Dizziness Outcome: Completed Goal: Medications Outcome: Completed Goal: Mental Status/LOC/Awareness Outcome: Completed Goal: Toileting Needs Outcome: Completed Goal: Volume and Electrolyte Status Outcome: Completed Goal: Communication/Sensory Outcome: Completed Goal: Behavior Outcome: Completed Problem: Cognitive: Goal: Knowledge of Transition Instructions will improve Outcome: Completed Nursing reports patient has met goals for DC tonight Folder to nursing for Dc to HOME OPPT Surgeon instruction sheets PRevena confidence sheet Prevena booklet Long Optifoam dressing AVS in folder Has leg pumps for DC Prescriptions Escribed, OPPT Rx in folder. RN notified 05/27/22 1652 Discharge Planning Living Arrangements Alone Support Systems Family members Assistance Needed family Type of Residence Private residence Home Services No Patient expects to be discharged to: home OPPT Does the patient need discharge transport arranged? No Follow Up Needs/Requests none Initial Transition Plan Initial Transition Plan Home Plan is home OPPT Sisters to care for her. 05/27/22 1644 Patient Information Accompanied by/Relationship sister Patient arrived from? Home Support System Extended family Services Requested Physical Therapy OPPT DME potential needs No Destination/Placement HOME OPPT Rehab Potential GOOD PCP AND DEMOGRAPHICS CONFIRMED The patient lives alone in a 1 level home with 1 SE tub shower standard toilet but has an ETS if needed Has a FWW and cane. Plan is home OPPT and instructed to take the Rx for the first appt and voices understanding. Her sister Kari is at the bedside and will transport home and say with her. She has another sister on the same street that will alternate with Kari. DVT prevention plan Has leg pumps at bedside from her last admission for 2 weeks and BASA BID for 6 weeks. Reviewed all the prescriptions listed as Escribed and OTC stool softeners and voices understanding. She has already checked with her pharmacy and they are ready for pickup. Patient would like to discharge to night and Charge nurse has spoken with Dr Gurpreet Arango who has approved for this evening if medically cleared and goals met for home. She is waiting to void. [facility] Evaluation PT Discharge Recommendations: Home independent Distance Ambulated (ft): 125 Device: Rolling walker Orthopedic Precautions: Anterior Hip Precautions LLE Weight Bearing Status: As Tolerated Strength LLE L Ankle Dorsiflexion: 5/5 L Ankle Plantar Flexion: 5/5 AM-PAC: * Saranya Durham MD - Primary * Jethro Rosales MD - Fellow Procedure(s): Left revision of total hip arthroplasty, anterior Day of Surgery Fall prevention education provided including use of call light in hospital, use of appropriate assistive device, safe mobility techniques, and safety measures at home. Continue PT as per POC. PT eval complete s/p L TH Revision. Per surgeon op report, pt is WBAT and has anterior hip precautions. Issued precautions handout and educated pt and pt demos good understanding. Pt eager to d/c home today. Nsg in to remove obando before session. Pt instructed in safe mobility- see below- including gait and stair training with RW. Pt is safe and steady with all mobility. Pt assisted back to bed and instructed in LE VRE and DVT pumps on. Pt plans to d/c home with sister to assist. Pt has met PT goals. Subjective Patient Active Problem List Diagnosis Other mechanical complication of internal left hip prosthesis, initial encounter ([facility] Past Medical History: Diagnosis Date Adverse effect of anesthesia slow to wake up Arthritis Disease of thyroid gland Hyperlipidemia Hypertension Hypothyroidism History reviewed. No pertinent surgical history. Objective 05/27/22 1536 PT Time Calculation PT Start Time 1536 PT Stop Time 1602 PT Time Calculation (min) 26 min Precautions LLE Weight Bearing Status As Tolerated Orthopedic Precautions Anterior Hip Precautions Pain Assessment Pain Assessment No/denies pain Cognition Arousal/Alertness Appropriate responses to stimuli Orientation Level Oriented X4 Home Living Type of Home House Lives With Alone Home Adaptive Equipment Walker - rolling Home Layout One level Home Access Stairs to enter without rails Entrance Stairs-Number of Steps 1 Prior Function Level of [place] Independent with mobility and functional transfers Bed Mobility Sitting to Lying Assistance Contact guard;Minimal verbal cues Sitting to Lying Deficit Verbal cueing;Supervision/safety awareness;Increased time to complete Lying to Sitting Assistance Contact guard;Minimal verbal cues Lying to Sitting Deficit Verbal cueing;Supervision/safety awareness;Increased time to complete Transfers Sit to Stand Assistance Supervision or touching assistance;Minimal verbal cues Sit to Stand Deficit Verbal cueing;Supervision/safety awareness Ambulation Walking Assistance Supervision or touching assistance;Minimal verbal cues Walking Deficit Verbal cueing;Supervision/safety awareness Device Rolling walker Distance Ambulated (ft) 125 Comments steady step-to gait pattern with RW Stairs 1 step (curb): Assistance Contact guard;Minimal verbal cues 1 step (curb): Deficit Verbal cueing;Supervision/safety awareness Stairs Comments vcs for LE sequencing and safety LLE Assessment LLE Assessment Within Functional Limits LLE Assessment Additional Yes Strength LLE L Ankle Dorsiflexion 5/5 L Ankle Plantar Flexion 5/5 PT Assessment PT Assessment/ Barriers to discharge Decreased mobility Prognosis Good Evaluation/Treatment Tolerance Patient tolerated treatment well Medical Staff Made Aware Yes Comments RN updated PT goals met Plan Treatment/Interventions Functional transfer training;Patient/family training;Equipment eval/education;Bed mobility;Gait training PT Plan Skilled PT PT Frequency 7 days per week PT Duration of Sessions PRN PT Treatments per day 1-2 times per day PT Discharge Recommendations Home independent Equipment Recommended pt owns WW PT - Evaluation Status Complete PT Evaluation Time Entry PT Evaluation (Low) Time Entry 15 Treatment performed during evaluation: Therapeutic Activity Therapeutic Activity Time Entry: 11 Therapeutic Activity 1: anterior hip precautions education and handout issued Therapeutic Activity 2: bed mobility Therapeutic Activity 3: transfers Therapeutic Activity 4: education of safety with sister Therapeutic Activity 5: LE VRE x 10 Goals and Education Encounter Problems Encounter Problems (Active) There are no active problems. Encounter Problems (Resolved) Template: Physical Therapy Problem: PT Short Term Goals Dates: Start: 05/27/22 Resolved: 05/27/22 Goal: Pt will perform bed mobility with CGA. (Resolved) Dates: Start: 05/27/22 Expected End: 05/27/22 Met: 05/27/22 Outcomes Date/Time User Outcome 05/27/22 1619 Clau Peng, GIN Completed Goal: Pt will transfer with SBA. (Resolved) Dates: Start: 05/27/22 Expected End: 05/27/22 Met: 05/27/22 Outcomes Date/Time User Outcome 05/27/229 Clau Peng, PT Completed Goal: Pt will ambulate 100 ft. with wheeled walker and SBA (Resolved) Dates: Start: 05/27/22 Expected End: 05/27/22 Met: 05/27/22 Outcomes Date/Time User Outcome 05/27/22 161Claudia Peng PT Completed Goal: Pt will ascend/descend curb step with CGA and LRAD (Resolved) Dates: Start: 05/27/22 Expected End: 05/27/22 Met: 05/27/22 Outcomes Date/Time User Outcome 05/27/22 Vasu Peng PT Completed Goal: Pt will demo understanding of anterior hip precautions (Resolved) Dates: Start: 05/27/22 Expected End: 05/27/22 Met: 05/27/22 Outcomes Date/Time User Outcome 05/27/22 Vasu Peng PT Completed Education Documentation Precautions, taught by Clau Peng PT at 05/27/2022 4:19 PM. Learner: Patient Readiness: Eager Method: Explanation, Demonstration, Handout Response: Verbalizes Understanding, Demonstrated Understanding Mobility Training, taught by Clau Peng PT at 05/27/2022 4:19 PM. Learner: Patient Readiness: Eager Method: Explanation, Demonstration, Handout Response: Verbalizes Understanding, Demonstrated Understanding Explain call button use, taught by Clau Peng PT at 05/27/2022 4:19 PM. Learner: Patient Readiness: Eager Method: Explanation, Demonstration, Handout Response: Verbalizes Understanding, Demonstrated Understanding Teach fall prevention measures, taught by Clau Peng PT at 05/27/2022 4:19 PM. Learner: Patient Readiness: Eager Method: Explanation, Demonstration, Handout Response: Verbalizes Understanding, Demonstrated Understanding Education Comments No comments found. [facility] - PROGRESS NOTE Patient Name : Anastasia Ponce Patient : [id number] Patient Admit Date : 05/27/2022 Admission Diagnosis : Postoperative Medical Comanagement Provider Name : Saranya Ferro DO Date Of Service : 05/27/22 IMPRESSION AND PLAN : Patient currently recovering in PACU. Status post left hip revision. EBL 500 DVT prophylaxis will be ordered by the primary surgical team. Please follow the most recent ACCP guidelines. I have seen the patient personally today and reviewed any available lab results on this patient. I reviewed all of the home medications and I ordered the postoperative pain regimen which will include IV Dilaudid. The patient will be on scheduled Tylenol, with as needed oxycodone and Flexeril. A medical consult has been ordered by the surgeon for perioperative management of the patient's chronic medical conditions including the following . . . Hypertension. Blood pressure 127/69 in PACU. This is stable. We will continue patient's home blood pressure regimen including lisinopril. Hyperlipidemia. We will continue patient's home statin medication. Hypothyroidism. We will continue patient's home thyroid medication. This patient will be considered acceptable for discharge from a medical perspective if the following criteria are met . . . 1. Oxygen Saturations > 90% on Room Air 2. Able to void without difficulty 3. Meets Physical Therapy goals for discharge 4. Passing Flatus without nausea vomiting or abdominal distention 5. Cleared for discharge by surgeon 6. Discharge medication reconciliation completed, defer post discharge management of anticoagulants, DVT prophylaxis, NSAIDs, opiates, and antibiotics to surgical service. Subjective The patient did well in surgery with no complications. The patient denies chest pain or shortness of breath. Patient denies nausea or vomiting. Patient reports pain is currently tolerable on current pain regimen. REVIEW OF SYSTEMS Cardiovascular: Denies chest pain Respiratory: Denies shortness of breath or cough Gastrointestinal: Denies abdominal pain or nausea/vomiting Genitourinary: Denies urinary retention or incomplete voiding VITALS : Visit Vitals BP 127/69 Pulse 82 Temp 36.7 C (98 F) (Temporal) Resp 15 SpO2 100% Smoking Status Never PHYSICAL EXAM : General - No acute distress; Alert and conversational Cardiology - No tachycardia noted; No peripheral edema noted Respiratory - Clear to auscultate bilaterally; No accessory respiratory muscle use noted; No wheezing noted Abdominal - Non-tender to palpation; positive bowel sounds Musculoskeletal - No calf tenderness noted on palpation. Pain in left hip near surgical site. Psychiatric - Appropriate affect, Alert and oriented to person, place, and situation RESULTS : LABS Admission on 05/27/2022 Component Date Value ABO Group 05/27/2022 O Rh Type 05/27/2022 Negative Antibody Screen 05/27/2022 Negative SARS-COV-2 Screen 05/27/2022 Not Detected Glucose POCT 05/27/2022 98 IMAGING documented in this encounter [facility] 05-27-2022 Hospital course Narrative -use over the counter stool softeners to prevent constipation -Call your pharmacy prior to discharge to make sure your prescriptions are ready for pickup Please follow surgeon's discharge instructions and prescription directions. Surgeon' discharge instructions are in patient's folder- FOLLOW SURGEON INSTRUCTION SHEETS Contact Surgeon's office with any questions/concerns [phone] -Plasma Flow SCD'S Compression leg pumps on Bilateral Legs for 20 hours per day x 2 weeks for additional DVT prevention- SEE SURGEONS INSTRUCTION SHEETS FOR DIRECTIONS -use over the counter stool softeners to prevent constipation -Call your pharmacy prior to discharge to make sure your prescriptions are ready for pickup Outpatient physical therapy is to begin KIMMY. Please call to schedule if not already scheduled. The prescription is in your dischareg folder. Please take the prescription for therapy to your first appointment. -Maintain the Prevena incisional wound vac . Prevena patient care guide provided- Prevena Wound Vac lifespan alarms about 7 days from application and will need to be removed by the [facility] office. Please take the Optifoam dressing in your folder for this appointment so it can be applied by the [facility] staff. Call for a 1 week follow up appointment for prevena incisional vac removal and any questions or concerns. Verify Office location when scheduling. [email or web address] [phone] Pre-Surgery Instructions: Medication Instructions alendronate (FOSAMAX) 70 mg tablet Take as recommended by your specialist diclofenac (VOLTAREN) 75 mg EC tablet Other (see Additional Instructions) levothyroxine (SYNTHROID, LEVOTHROID) 75 mcg tablet Take morning of surgery with sip of water, no other fluids liothyronine (CYTOMEL) 5 mcg tablet Take morning of surgery with sip of water, no other fluids lisinopriL (PRINIVIL,ZESTRIL) 10 mg tablet Take as recommended by your specialist polyvinyl alcohol (ARTIFICIAL TEARS) 1.4 % ophthalmic solution Take morning of surgery with sip of water, no other fluids simvastatin (ZOCOR) 20 mg tablet Take as recommended by your specialist Finish preop drink 1 hour prior to arrival Pt states she has stopped Voltaren 1 week prior to OR. Additional Instructions: Instructions to prepare for surgery: Increase water intake day PRIOR to surgery. Eat light meals or follow surgeon specific food instructions day PRIOR to surgery. At Midnight, nothing is allowed in your mouth. NO food, water, gum, candy, coffee, mints, tobacco, NOTHING AFTER MIDNIGHT. When you wake up, brush your teeth and use mouthwash. Don't swallow. Take small sip of water with meds that are to be taken DOS. Shower night prior and morning of surgery with antibiotic cleanser OR Dial antibacterial soap (as designated by surgeon). No lotions, creams, powders on your skin. You may wear deodorant (unless surgery is on your shoulder or breast(s)). No shaving surgical site (within 48 hours of surgery). Remove all jewelry, piercings and leave that at home. Leave valuable at home. Wear loose fitting clothes. Bring photo ID, medical insurance card, and copay as needed when you check in for surgery. In addition, bring any of the following: CPAP, living will/ medical POA, glasses, case, hearing aid container, shoulder sling, back brace, walker, cervical collar. Bring your COVID vaccine card, if applicable. Leave walker &/or cane (unless needed prior to surgery) and overnight bag in the car until after your procedure when you are assigned a room. Only 1 designated adult is allowed to go back into Pre-Op area with you. Surgical times are subject to change up until 5:30pm the evening prior to your surgery. Check in at hotel receptionist desk [address], [place] [address]. If Outpatient, these additional instructions apply: An adult must stay with you the whole time you are here and drive you home. An adult must stay with you at home for 24 hours due to Anesthesia. If you have JES[facility], you are required to stay 3 hours after your surgery before we can discharge you. documented in this encounter [facility] 05-27-[address] Pemberton, Dr. Durham, OR Nurse all aware of this patients skin tear on the right ankle (caused when patient was putting on her socks) assessed, documented and wound dressing applied. [facility] 05-27-[address] Pemberton, Dr. Durham, OR Nurse all aware of this patients skin tear on the right ankle (caused when patient was putting on her socks) assessed, documented and wound dressing applied. documented in this encounter [facility] 05-27-2022 History and physical note History and Physical Update ( H&P completed within the previous thirty days ) I personally reviewed the History and Physical, interviewed and examined the patient prior to surgery. No changes have occurred in the patient's condition since the History and Physical was completed. [facility] Work Phone: 05-27-2022 History and physical note History and Physical Update ( H&P completed within the previous thirty days ) I personally reviewed the History and Physical, interviewed and examined the patient prior to surgery. No changes have occurred in the patient's condition since the History and Physical was completed. documented in this encounter [email or web address] 03-31-2022 Note PROCEDURE: XR HIP LT 2 3V W PELVIS HISTORY: Pain of left hip joint for 6 months; no known injury COMPARISON: None. FINDINGS: BONES:Total left hip replacement. Increased lucency of the bone along the lateral margin of the proximal femoral shafts and medial margin of the distal femoral shaft which may represent movement/loosening of the hardware. SOFT TISSUES:No visible soft tissue swelling. EFFUSION:None visible. OTHER: Negative. IMPRESSION: 1. Left hip replacements with findings suggestive of movement/loosening of the femoral hardware. No prior images of this area for comparison. Electronically authenticated by: FER JUAREZ Date: 2022-03-31 06:56 [facility] 07-29-2021 History of Present illness Narrative General Plastics Review of Systems: Do you have any of the following: Chills, Fatigue, Fever or Night Sweats: no. Ear pain or eye discharge: no. Hearing loss or visual changes: no. Sore throat or chronic cough: no. Shortness of breath: no. Chest pain, swelling, or heart palpitations: no. Abdominal pain: no. Constipation or diarrhea: no. Heartburn or Nausea: no. Rash or skin problems: no. Dizziness or numbness: no. Headaches or Migraines: no. Seizures: no. Joint pain, joint swelling or muscle weakness: no. Bruise or bleed easily: no. Any swollen lymph nodes: no. Subjective: Anastasia Ponce is an 75 y.o. female who presents for evaluation of facial wrinkles. Her last Restylane injection was March. No Known Allergies Current Outpatient Medications Medication Sig Dispense Refill alendronate 70 MG tablet amitriptyline 50 MG tablet diclofenac EC [address] tablet lisinopril 10 MG tablet simvastatin 20 MG tablet No current facility-administered medications for this visit. Past Medical History: Diagnosis Date Essential hypertension, benign Hyperlipidemia Past Surgical History: Procedure Laterality Date OTHER SURGICAL 2018 L- Hip History reviewed. No pertinent family history. Social History Socioeconomic History Marital status: Single Spouse name: Not on file Number of children: Not on file Years of education: Not on file Highest education level: Not on file Occupational History Not on file Tobacco Use Smoking status: Never Smoker Smokeless tobacco: Never Used Substance and Sexual Activity Alcohol use: Not Currently Drug use: Not Currently Sexual activity: Not on file Other Topics Concern Not on file Social History Narrative Not on file Social Determinants of Health Financial Resource Strain: Not on file Food Insecurity: Not on file Transportation Needs: Not on file Physical Activity: Not on file Stress: Not on file Social Connections: Not on file Intimate Partner Violence: Not on file Housing Stability: Not on file Review of Systems Pertinent items are noted in HPI. General Plastics Review of Systems: Do you have any of the following: Chills, Fatigue, Fever or Night Sweats: no. Ear pain or eye discharge: no. Hearing loss or visual changes: no. Sore throat or chronic cough: no. Shortness of breath: no. Chest pain, swelling, or heart palpitations: no. Abdominal pain: no. Constipation or diarrhea: no. Heartburn or Nausea: no. Rash or skin problems: no. Dizziness or numbness: no. Headaches or Migraines: no. Seizures: no. Joint pain, joint swelling or muscle weakness: no. Bruise or bleed easily: no. Any swollen lymph nodes: no. Objective: BP 144/85 Pulse 91 Temp 97.6 F (36.4 C) (Temporal) Ht 1.626 m (5' 4 ) Wt 61.7 kg (136 lb) BMI 23.34 kg/m Smoking Status Never Smoker Patient with pronounced marionette lines and other wrinkles around the corners of the mouth. The procedure of Restylane INJECTION was reviewed with the patient including the risks and alternatives of treatment. After prepping the skin with alcohol, 20* (units) were injected in the following areas: Marionette lines and other wrinkles in this area. Pressure was applied to prevent hematoma. The patient tolerated the procedure well. They area encouraged to call with any problems or questions. Assessment: Patient for Restylane injection Plan: The pt is to call with any further problems or questions, otherwise I will see them back PRN. documented in this encounter [facility] 04-30-2020 Note Chief Complaint referral for positive occult stool HPI Staff 74 year old female presents on consultation from Dr. Hernandez for positive occult stool. Denies rectal pain or bleeding. Denies abdominal pain, nausea or vomiting. No unexplained weight loss. No known family history of colon cancer. Last colonoscopy completed 05/[address] Sanches, reported normal. History of Present Illness 74 yo female with h/o htn, recently had positive test for fecal occult blood, denies change in bms or gross blood in stools, no abdominal complaints; no previous abdominal operations; last colonoscopy 2010, only able to advance to 30 cm; had abd/pelvic ct scan, wnl; on diclofenac daily, no asa, no SBE prophylaxis; no fmhx of GI malignancy or IBD. Review of Systems PHQ Score Initial Depression Screen Score: 0 ROS - Provider Constitutional: no fever, no sweats, no weight loss. Eyes: no glasses, no blurred vision, no visual loss. ENMT: no dentures, no hoarseness, no swallowing difficulties, no hearing loss, no ear infection(s), no nose bleeds. Cardiovascular: normal blood pressure, no chest pain, regular heartbeat, no heart murmur. Respiratory: no shortness of breath, no cough, no asthma, no wheezing. Gastrointestinal: no nausea, no vomiting, no diarrhea, no constipation, no blood in stool, no change in bowel habits, no abdominal pain, no hepatitis. Genitourinary: no kidney stones, no urine infection, no dysuria. Musculoskeletal: no pain, no weakness. Skin: no changing moles, no rash, no skin lumps. Neurologic: no seizures, no epilepsy, no headache. Psychiatric: no emotional or psychiatric problem. Heme/Lymph: no bleeding problems, no anemia, no blood clots, no transfusions. Allergy/Immunologic: no swollen lymph nodes/glands, no IV drug abuse. Other: Additional ROS info: Except as noted in the above Review of Systems and in the History of Present Illness, all other systems have been reviewed and are negative or noncontributory. Physical Exam Vitals & Measurements T: 36.4 ?C (Tympanic) HR: 72(Peripheral) RR: 16 BP: 116/74 HT: 161.9 cm HT: 161.93 cm WT: 63.5 kg WT: 63.5 kg BMI: 24.22 HEENT: normal conjunctiva, sclera clear, no scleral icterus, EOM intact, PERRLA, oral mucosa moist without lesions. Neck: trachea midline, no mass, symmetric, no thyromegaly or nodules, no adenopathy Respiratory: lungs CTA, respirations non labored. Cardiovascular: regular rate and rhythm, no murmur, no pedal edema or varicosities. Gastrointestinal: soft, non distended, no tenderness, no masses, no palpable hernias, diastasis recti no, no hepatosplenomegaly; normal bs Lymphatic: no cervical adenopathy, no axillary adenopathy, Musculoskeletal: normal gait, digits and nails without infection, nodes, cyanosis, clubbing. Skin: no rashes, no lesions, no ulcers, no subcutaneous nodules, induration. Psychiatric/Neuro: oriented to time, place, person, judgement normal, affect appropriate for age, insight intact, no focal deficits. Tests: labs reviewed, review of old records completed, Discussed surgical options, risks, and possible complications with patient. Assessment/Plan 1. Fecal occult blood test positive (R19.5: Other fecal abnormalities) plan colonoscopy under anesthesia, informed consent obtained. patient understands the risks associated with COVID-19, and the need for preoperative testing with self-isolation until the procedure. Follow-up No qualifying data available Problem List/Past Medical History Ongoing Fecal occult blood test positive Fibrocystic breast HPV (human papilloma virus) infection HTN (hypertension) Lipodystrophy Osteopenia Pulmonary HTN Tricuspid insufficiency Historical No qualifying data Procedure/Surgical History Core needle biopsy of breast (11/24/2010), LEEP (02/20/2010), Cataract extraction (06/27/2006). Medications amitriptyline 50 mg Tab, 75 mg= 1.5 tab(s), Oral, Once a day (at bedtime) Diclofenac 75mg Tab-DR, 1 tab(s), Oral, BID Fosamax 70 mg Tab, 70 mg= 1 tab(s), Oral, qWeek lisinopril 10 mg Tab, 10 mg= 1 tab(s), Oral, Daily simvastatin 20 mg Tab, 20 mg= 1 tab(s), Oral, Once a day (at bedtime) Allergies No Known Allergies No Known Medication Allergies Social History Alcohol - Denies Alcohol Use, 04/30/2020 Substance Abuse - Denies Substance Abuse, 04/30/2020 Tobacco Never (less than 100 in lifetime) Tobacco Use:., 04/30/2020 Family History Family history is negative [facility] Comment on above: Result Comment: Elec tronically Signed By: VALERIE DINERO, Ajith Rowe\Date and Time Signed: 04/30/20 15:38 EST Evaluation note Diagnosis Rhytides- Primary Other specified hypertrophic and atrophic condition of skin Atrophic skin Other specified hypertrophic and atrophic condition of skin [facility] Diagnosis Other mechanical complication of internal left hip prosthesis, initial encounter ([facility] Primary [facility] Pain Generalized pain [facility] Attachments The following attachments cannot be sent through Care Everywhere. * DVT (Deep Vein Thrombosis): Prevention: General Info (Honduran) * Incentive Spirometer: General Info (Honduran) * Fall Prevention (Honduran) * Opioids: General Info (Honduran) * Constipation (Honduran) * Antibiotics: General Info (Honduran) [facility] Narrative* Auth/Cert Specialty Diagnoses / Procedures Referred By Dione t Referred To Contact Diagnoses Other mechanical complication of internal left hip prosthesis, initial encounter ([facility]) T84.091A Procedures DE REVISION PRATIK ACETABULAR COMPONENT ONLY W/WO AUTOGRAFT/ALLOGRAFT DE REVISION PRATIK ACETABULAR COMPONENT ONLY W/WO AUTOGRAFT/ALLOGRAFT 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, anterior Saranya Durham MD [address] [place] [id number] [facility] [address] [place] [address] Referral ID Status Reason Start Date Expiration Date Visits Re quested Visits Authorized [id number] 1 1 [facility] Summary Purpose Family History No Family History Records FoundNo Family History Records FoundNo Family History Records FoundNo Family History Records FoundNo Family History Records FoundNo Family History Records Found Advance Directives No Advanced Directives Records FoundLatest Code Status on File Code Status Date Activated Date Inactivated Comments Full Code - Default 05/27/2022 1:42 PM 05/27/2022 9:13 P M This is order is used when code status has not been discussed with the patient, or code status is otherwise unknown/unconfirmed To update the patient's code status, place a code status order. Do not modify or discontinue any currently active code status orders. Provide all therapy to prevent/treat cardiac or respiratory arrest. Additional Source Comments INFORMATION SOURCE (unrecogn ized section and content) DATE CREATED AUTHOR [facility] DATE CREATED AUTHOR AUTHOR'S ORGANIZ ATION 11/30/2021 [facility] DATE CREATED AUTHOR AUTHOR'S ORGANIZ ATION 08/02/2022 [facility] DATE CREATED AUTHOR AUTHOR'S ORGANIZ ATION 08/07/2022 [facility] DATE CREATED AUTHOR AUTHOR'S ORGANIZ ATION 10/21/2022 [facility] DATE CREATED AUTHOR AUTHOR'S ORGANIZ ATION 05/11/2023 [facility] EPIC Reason for Visit (unrecogniz ed section and content) Reason Comments [employer] Care Teams (unrecognized sec tion and content) Supportability Engineer Relationship Specialty Start Date End Date Dorcas Hernandez MD [address] [place] [address] PCP - General Family Medicine 03/10/21 Supportability Engineer Relationship Specialty Start Date End Date Dorcas Hernandez MD [address] [place] [address] PCP - General Family Medicine 05/18/22 Supportability Engineer Relationship Specialty Start Date End Date Dorcas Hernandez MD [address] [place] [address] PCP - General Family Medicine 05/18/22 Ordered Prescriptions (unrec ognized section and content) Prescription Sig Dispensed Refills Start Date End Da te ondansetron (ZOFRAN) 4 mg tablet Take 1 tablet (4 mg total) by mouth every 8 (eight) hours if needed for nausea or vomiting for up to 7 days. 15 tablet 0 05/27/2022 06/03/2022 cephalexin (KEFLEX) 500 mg capsule Take 1 capsule (500 mg total) by mouth every 6 (six) hours for 10 days. 40 each 0 05/27/2022 06/06/2022 oxyCODONE (ROXICODONE) 5 mg immediate release tablet Take 1-2 tablets (5-10 mg total) by mouth every 4 (four) hours if needed for moderate pain or severe pain for up to 7 days. Dx: Z96.6 Max Daily Amount: 60 mg 40 tablet 0 05/27/2022 06/03/2022 traMADoL (ULTRAM) 50 mg tablet Take 1-2 tablets (50-100 mg total) by mouth every 6 (six) hours if needed for moderate pain for up to 7 days. Dx: Z96.6 Max Daily Amount: 400 mg 40 tablet 0 05/27/2022 06/03/2022 celecoxib (CeleBREX) 200 mg capsule Take 1 capsule (200 mg total) by mouth 1 (one) time each day. If prior authorization is required, do not fill. 30 capsule 0 05/27/2022 06/26/2022 acetaminophen (TYLENOL) 500 mg tablet Take 2 tablets (1,000 mg total) by mouth 3 (three) times a day for 7 days. Do not exceed 3,000 mg daily limit. 50 tablet 0 05/27/2022 06/03/2022 aspirin 81 mg chewable tablet Chew 1 tablet (81 mg total) 2 (two) times a day. Aspirin 81 mg , 1 tab PO BID for 6 weeks, Disp appropriate quantity. If patient is prescribed Arixtra/Lovenox/Xarel to, do not begin Aspirin until that medication is finished, then only take Aspirin for 4 weeks. 84 tablet 0 05/28/2022 07/09/2022 Scheduled Active and Recently Administ ered Medications (unrecognized section and content) Medication Order 05/25/2022 05/26/2022 05/27/2022 acetaminophen (TYLENOL) tablet 1,000 mg 1,000 mg, oral, 3 times daily, First dose on Tue05/27/22 at 2100 2100 (Canceled Entry - Provider: Automatic Discharge Provider - Comment: Automatically canceled at discontinue of medication order) aspirin EC tablet 81 mg 81 mg, oral, 2 times daily, First dose on Tue05/28/22 at 0900, For 42 days, Recovery & On Unit, Do not crush, chew, or split. atorvastatin (LIPITOR) tablet 10 mg 10 mg, oral, Nightly, First dose on Tue05/27/22 at 2100 2100 (Canceled Entry - Provider: Automatic Discharge Provider - Comment: Automatically canceled at discontinue of medication order) ceFAZolin (ANCEF) 2 gram/20 mL IV syringe 2 g (COMPLETED) 2 g, intravenous, Administer over 3 Minutes, Once, On 05/27/23 at 0845, For 1 dose, Preprocedure, Administer within 60 minutes of incision For pt under 120 KG, Indication: Prophylaxis-Surgical 1050 (Given - Provid er: REYNALDO Garcias) ceFAZolin (ANCEF) 2 gram/20 mL IV syringe 2 g 2 g, intravenous, Administer over 3 Minutes, Every 8 hours, First dose on Inez 05/27/22 at 1800, For 2 doses, Recovery & On Unit, Indication: Prophylaxis-Surgical 1709 (Given - Provid er: Gaby Sanchez, KARLA) celecoxib (CeleBREX) capsule 200 mg (COMPLETED) 200 mg, oral, Once, On Inez 05/27/22 at 0845, For 1 dose, Preprocedure, If not allergic to NSAIDs 0926 (Given - Provid er: Nancy Daniel RN - Comment: per preop orders) celecoxib (CeleBREX) capsule 200 mg 200 mg, oral, Daily, First dose on Tue05/28/22 at 0900, Recovery & On Unit lactated Ringer's infusion (COMPLETED) 100 mL/hr, intravenous, Once, On Inez 05/27/22 at 0845, For 1 dose, Preprocedure 0911 (New Bag - Prov ider: Nancy Daniel RN) levothyroxine (SYNTHROID, LEVOTHROID) tablet 75 mcg 75 mcg, oral, Daily, First dose on Tue05/28/22 at 0600, ORAL ROUTE: take on an empty stomach and separate from other medications. ENTERAL TUBE ROUTE: If newly initiated enteral nutrition duration is over 5 days, hold enteral nutrition 1 hour before and after drug administration, per ASPEN guidelines. liothyronine (CYTOMEL) tablet 5 mcg 5 mcg, oral, Daily, First dose on Tue05/28/22 at 0600 lisinopriL (PRINIVIL,ZESTRIL) tablet 10 mg 10 mg, oral, Daily, First dose on Tue05/28/22 at 0900, Hold for systolic blood pressure less than 110. senna (SENOKOT) tablet 8.6 mg 8.6 mg (1 tablet), oral, 2 times daily, First dose on Inez 05/27/22 at 2100 2100 (Canceled Entry - Provider: Automatic Discharge Provider - Comment: Automatically canceled at discontinue of medication order) sodium chloride 0.9 % flush 10 mL(Linked Group 1) 10 mL, intravenous, 2 times daily, First dose on Inez 05/27/22 at 1400, Recovery & On Unit 1400 (Canceled Entry - Provider: Automatic Discharge Provider - Comment: Automatically canceled at discontinue of medication order)2100 (Canceled Entry - Provider: Automatic Discharge Provider - Comment: Automatically canceled at discontinue of medication order) tranexamic acid (CYKLOKAPRON) injection 1,000 mg (COMPLETED) 1,000 mg, intravenous, Administer over 10 Minutes, Once, On Inez 05/27/22 at 0845, For 1 dose, Preprocedure, Not to exceed 100 mg (1 mL) per minute., Tranexamic Acid Indication: Surgical Prophylaxis: Orthopedic 1050 (Given - Provid er: REYNALDO Garcias) Continuous Medication Order 05/25/2022 05/26/2022 05/27/2022 lactated Ringer's infusion (CANCELED) 100 mL/hr, intravenous, Continuous, Starting on Inez 05/27/22 at 1345, Recovery (only) 1445 (Restarted - Pr ovider: Gaby Sanchez RN) lactated Ringer's infusion 100 mL/hr, intravenous, Continuous, Starting on Inez 05/27/22 at 1500 1511 (New Bag - Prov ider: Gaby Sanchez RN) Oxygen Therapy, Adult inhalation, Continuous, Starting on Inez 05/27/22 at 1515, Titrate 1 lpm - 4 lpm to keep SpO2 above 90%. If flow is increased above 4 lpm, please contact the physician., Device: Nasal Cannula, Keep O2 Sat Above: 90% 1515 (Canceled Entry - Provider: Automatic Discharge Provider - Comment: Automatically canceled at discontinue of medication order) PRN Medication Order 05/25/2022 05/26/2022 05/27/2022 acetaminophen (TYLENOL) tablet 325 mg 325 mg, oral, Every 6 hours PRN, mild pain, headaches, fever, Starting on Inez 05/27/22 at 1445 aluminum-magnesium hydroxide-simethicone (MAALOX) 200-200-20 mg/5 mL suspension 30 mL 30 mL, oral, 4 times daily PRN, indigestion, heartburn, Starting on Inez 05/27/22 at 1445 bethanechol (URECHOLINE) tablet 25 mg 25 mg, oral, 3 times daily PRN, As needed for urinary retention or PVR greater than 400 cc, Starting on Inez 05/27/22 at 1445 bisacodyL (DULCOLAX) suppository 10 mg 10 mg, rectal, Daily PRN, constipation, If magnesium hydroxide ineffective, Starting on Tue05/27/22 at 1445 cloNIDine (CATAPRES) tablet 0.1 mg 0.1 mg, oral, Every 8 hours PRN, high blood pressure, for SBP more than 170 or DBP more than 105, Starting on Inez 05/27/22 at 1445 cyclobenzaprine (FLEXERIL) tablet 10 mg 10 mg, oral, 3 times daily PRN, muscle spasms, Starting on Tue05/27/22 at 1445 diphenhydrAMINE (BENADRYL) capsule 25 mg 25 mg, oral, Every 6 hours PRN, itching, Starting on Tue05/27/22 at 1445 diphenhydrAMINE (BENADRYL) injection 25 mg 25 mg, intravenous, Every 6 hours PRN, itching, Starting on Inez 05/27/22 at 1433 EPINEPHrine (ADRENALIN) injection (CANCELED) As needed, Starting on Tue05/27/22 at 1138, Intraprocedure 1138 (Given - Provid er: Saranya Durham MD) fentaNYL (SUBLIMAZE) injection 25 mcg (CANCELED) 25 mcg, intravenous, Every 5 min PRN, moderate pain, For PACU use only., Starting on Tue05/27/22 at 1327, For 6 doses, Recovery (only) 1354 (Given - Provid er: Darby Rivera RN)1406 (Given - Provider: Darby Rivera RN) HYDROmorphone (DILAUDID) injection 0.5 mg 0.5 mg, intravenous, Every 2 hours PRN, severe pain, For severe breakthrough pain not relieved with oral pain medication, Starting on Tue05/27/22 at 1445 magnesium hydroxide (MILK OF MAGNESIA) 400 mg/5 mL suspension 30 mL 30 mL, oral, 2 times daily PRN, constipation, Starting on Tue05/27/22 at 1445, Follow dose with 8 oz of water. naloxone (NARCAN) injection 0.4 mg 0.4 mg, intravenous, Once as needed, opioid reversal, respiratory depression, Starting on Inez 05/27/22 at 1445, For 1 dose ondansetron (PF) (ZOFRAN) injection 4 mg 4 mg, intravenous, Every 6 hours PRN, nausea, vomiting, Starting on Inez 05/27/22 at 1445 ondansetron ODT (ZOFRAN-ODT) disintegrating tablet 4 mg 4 mg, oral, Every 8 hours PRN, vomiting, nausea, Starting on Inez 05/27/22 at 1336, Recovery & On Unit, -Give IV if patient is unable to take orally. -If inadequate response within 30 minutes, proceed to next-line agent or contact provider if no further options ordered. For ODT tablets: -Do not remove from blister pack until just before administering. -Patient should allow tablet to dissolve on tongue. oxyCODONE (ROXICODONE) immediate release tablet 10 mg(Linked Group 2) 10 mg, oral, Every 4 hours PRN, severe pain, Starting on Inez 05/27/22 at 1445 1712 (Given - Provid er: Gaby Sanchez RN) oxyCODONE (ROXICODONE) immediate release tablet 5 mg(Linked Group 2) 5 mg, oral, Every 4 hours PRN, moderate pain, Starting on Inez 05/27/22 at 1445 1712 (See Alternativ e - Provider: Gaby Sanchez RN) polyvinyl alcohol (ARTIFICIAL TEARS) 1.4 % ophthalmic solution 1 drop 1 drop, Both Eyes, Daily PRN, dry eyes, Starting on Inez 05/27/22 at 1445 povidone-iodine (BETADINE) 30 mL in sodium chloride 0.9 % 1,000 mL irrigation (CANCELED) As needed, Starting on Inez 05/27/22 at 1257, Intraprocedure 1257 (Given - Provid er: Saranya Durham MD) promethazine (PHENERGAN) suppository 25 mg 25 mg, rectal, Every 6 hours PRN, nausea, vomiting, Starting on Inez 05/27/22 at 1445, For use if unable to tolerate p.o. Phenergan and IV Zofran ineffective promethazine (PHENERGAN) tablet 25 mg 25 mg, oral, Every 6 hours PRN, nausea, vomiting, Starting on Inez 05/27/22 at 1445, For use if IV Zofran ineffective or no IV access ropivacaine (NAROPIN) 0.5 % injection (CANCELED) As needed, Starting on Inez 05/27/22 at 1139, Intraprocedure 1139 (Given - Provid er: Saranya Durham MD) sodium chloride 0.9 % flush 10 mL(Linked Group 1) 10 mL, intravenous, As needed, line care, Starting on Inez 05/27/22 at 1336, Recovery & On Unit sodium chloride 0.9 % irrigation solution (CANCELED) As needed, Starting on Inez 05/27/22 at 1139, Intraprocedure 1139 (Given - Provid er: Saranya Durham MD) traZODone (DESYREL) tablet 50 mg 50 mg, oral, Nightly PRN, sleep, Starting on Inez 05/27/22 at 1445 Linked Groups Order Group 1: Insert peripheral IV (CANCELED) STAT, Once, On Inez 05/27/22 at 1337, For 1 occurrence
Recovery & On Unit And Maintain IV access (CANCELED) Until discontinued, Starting on Inez 05/27/22 at 1337, Until Specified
Recovery & On Unit And Saline lock IV (CANCELED) Routine, Once, On Inez 05/27/22 at 1337, For 1 occurrence
When tolerating PO fluids, Recovery & On Unit And sodium chloride 0.9 % flush 10 mLJump to med 10 mL, intravenous, 2 times daily, First dose on Inez 05/27/22 at 1400, Recovery & On Unit And sodium chloride 0.9 % flush 10 mLJump to med 10 mL, intravenous, As needed, line care, Starting on Inez 05/27/22 at 1336, Recovery & On Unit Group 2: oxyCODONE (ROXICODONE) immediate release tablet 5 mgJump to med 5 mg, oral, Every 4 hours PRN, moderate pain, Starting on Inez 05/27/22 at 1445 Or oxyCODONE (ROXICODONE) immediate release tablet 10 mgJump to med 10 mg, oral, Every 4 hours PRN, severe pain, Starting on Inez 05/27/22 at 1445 FOR RECORDS PERTAINING TO PATIENTS WHO ARE OR HAVE BEEN ENROLLED IN A CHEMICAL DEPENDENCY/SUBSTANCEABUSE PROGRAM, SOME INFORMATION MAY BE OMITTED. This clinical summary was aggregated from multiple sources. Caution should be exercised in using it in the provision of clinical care. This summary normalizes information from multiple sources, and as a consequence, information in this document may materially change the coding, format and clinical context of patient data. In addition, data may be omitted in some cases. CLINICAL DECISIONS SHOULD BE BASED ON THE PRIMARY CLINICAL RECORDS. [employer] [facility]. provides no warranty or guarantee of the accuracy or completeness of information in this document.
[2023-05-16 13:08] LABS: Free T3 4.13 pg/mL (2.18-3.98); Thyroid Stimulating Hormone 0.011 uIU/mL (0.358-3.740)
[2023-05-16 15:21] LABS: Free T4 1.34 ng/dL (0.76-1.46)
== END 2023-05-16 11:46 | disposition home or self-care (01) ==
PROVIDERS: PCP Family Medicine; Visit Provider Family Medicine
DX: E03.9 Hypothyroidism, unspecified (principal)
CPT/HCPCS: 36415; 84439; 84443; 84481

== ENCOUNTER 2023-06-07 08:46 | Outpatient (OUT) | payer MEDICARE, SELFPAY ==
--- NOTE | 2023-06-07 08:49 | XR_ITS ---
[place] [id number] Patient Name: BECKY STRONG MRN: [id number] date: 1945 Sex: F Assigned Patient Location: [facility] Current Patient Location: [facility] Accession/Order Number: [id number] Exam Date: 06/07/2023 09:02 Report Date: 06/07/2023 10:03 At the request of: DORCAS AGUIRRE Procedure: XR DEXA axial skeleton EXAMINATION: XR DEXA axial skeleton HISTORY: Osteopenia COMPARISON: DEXA bone densitometry 08/26/2020 TECHNIQUE: Dual-energy X-ray absorptiometry (DXA) was performed. FINDINGS: SPINE ANALYSIS: Average bone mineral density is 1.198 g/cm2. T-score (standard deviation relative to young adult mean): 0.2 . +12.0% change since prior study. HIP ANALYSIS: Lowest bone mineral density is within the right femoral neck, 0.818 g/cm2. T-score (standard deviation relative to young adult mean): -1.6 . +4.1% change since prior study. FOREARM ANALYSIS: Average bone mineral density within radius is 0.536 g/cm2. T-score (standard deviation relative to young adult mean): -2.5 . XR/XR DEXA axial skeleton IMPRESSION: World Michael Organization Classification: Osteoporosis - High Fracture Risk Electronically authenticated by: FER JUAREZ Date: 06/07/2023 10:03
--- OUTSIDE RECORDS SUMMARY | 2023-06-07 08:51 | XMS_ITS | CCD ---
Author Name Unknown Address [address] [place] [address] Organization [facility] Care Team Providers Care Biological Inspector Name Role Phone Dorcas Hernandez MD Primary [...] Unavailable ZIEBMINO, DR FER Cameron Consult[employer] Unavailable KIRKLAND, DR SARANYA Massey Consulting Unavailable AHMED, DR [...] Unavailable HOY ., DR TOSCANO Consulting Unavailable KIRKLAND, DR SARANYA Massey Consulting Unavailable HOY ., DR TOSCANO Consulting Unavailable HOY ., DR TOSCANO Admitting Unavailable HOY ., DR TOSCANO Attending Unavailable HOY ., DR TOSCANO Primary Care Unavailable HOY ., DR TOSCANO Consulting Unavailable HOY ., DR TOSCANO Admitting Unavailable HOY ., DR TOSCANO Primary Care Unavailable HOY ., DR TOSCANO Attending Unavailable MISC, DR UREÑA Admitting Unavailable HOY ., DR TOSCANO Primary Care Unavailable MISC, DR UREÑA Attending [...] needed promethazine (PHENERGAN) suppository 25 mg sennosides, mcc 8.6 mg oral tablet (1 source) Start: [...] (1 source) Patient encounter status; Translations: [Other fpc (current) drug therapy] Onset: 04-05-2017 03-05-2021 Episodic [...] Report on 10-20-2022 Plastic Surgery Visit Report [facility] Plastic Reconstructive Surgery [address], [address] [place] [address] OFFICE VISIT Date of Service: 10/20/22 MR#: [id number] Acct: [id number] Name: TAEANASTASIA Joseph Rep #: [id number] : 1945 Provider: Dr. Gertrudis grimaldo MD Age/Sex: 76/F Location: [facility] Status: Signed Intake Vital Signs 10/20/22 13:35 Height 5 ft 4 in Weight: 140 lb 6 oz BMI 24.0 Body Surface Area 1.68 BP 157/75 H Blood Pressure Location Rt brachial Position Sitting Respiration 16 Pulse 85 Pulse Source Monitor Temp 97.4 F L Temp Source Temporal Pulse Oximetry (%) 97 Oxygen Delivery Method room air Intake Visit Reasons: CONSULT-LIPOSUCTION Blunger Required: No Accompanied by: None Is patient [...] Montero Signature: Date (if applicable) CC: Normal [facility] CBC AUTO DIFFon 06-01-2022 BASO # 0.0 103/ul Normal 0.0-0.1 [facility] Comment on above: Performed By: #### F T3, TSH, T4 #### [facility] [address] [place] [address] Dr. Abelardo Barrett Basophils/100 WBC (Bld) 0.4 % Normal 0.2-2.0 [facility] Comment on above: Performed By: #### F T3, TSH, T4 #### [facility] [address] [place] [address] Dr. Abelardo Barrett EO # 0.1 103/ul Normal 0.0-0.7 [facility] Comment on above: Performed By: #### F T3, TSH, T4 #### [facility] [address] [place] [address] Dr. Abelardo Barrett Eosinophils/100 WBC (Bld) 2.3 % Normal 0.9-7.0 [facility] Comment on above: Performed By: #### F T3, TSH, T4 #### [facility] [address] [place] [address] Dr. Abelardo Barrett Erythrocyte distribution width (RBC) [Ratio] 13.1 % Normal 11.0-15.0 [facility] Comment on above: Performed By: #### F T3, TSH, T4 #### [facility] [address] [place] [address] Dr. Abelardo Barrett Hematocrit (Bld) [Volume fraction] 23.4 % Critically low 36.0-48.0 [facility] Comment on above: Performed By: #### F T3, TSH, T4 #### [facility] [address] [address] [address] Abelardo Barrett Hemoglobin (Bld) [Mass/Vol] 7.7 g/dL Critically low 12.0-16.0 [facility] Comment on above: Performed By: #### F T3, TSH, T4 #### [facility] [address] [address] [address] Abelardo Barrett IG # 0.02 10e3/ul Normal 0.00-0.03 [facility] Comment on above: Performed By: #### F T3, TSH, T4 #### [facility] [address] [place] [address] Dr. Abelardo Barrett IG % 0.4 % Normal 0.0-0.5 [facility] Comment on above: Performed By: #### F T3, TSH, T4 #### [facility] [address] [place] [address] Dr. Abelardo Barrett LYMPH # 0.9 103/ul Critically low 1.2-3.8 [facility] Comment on above: Performed By: #### F T3, TSH, T4 #### [facility] [address] [address] [address] Abelardo Barrett Lymphocytes/100 WBC (Bld) 16.5 % Critically low 20.5-60.0 [facility] Comment on above: Performed By: #### F T3, TSH, T4 #### [facility] [address] [address] [address] Abelardo Barrett MANUAL DIFF REQ NO Normal [facility] Comment on above: Performed By: #### F T3, TSH, T4 #### [facility] [address] [address] [address] Abelardo Barrett MCH (RBC) [Entitic mass] 30.8 pg Normal 26.7-34.0 [facility] Comment on above: Performed By: #### F T3, TSH, T4 #### [facility] [address] [place] [address] Dr. Abelardo Barrett MCHC (RBC) [Mass/Vol] 32.9 g/dL Normal 29.9-35.2 [facility] Comment on above: Performed By: #### F T3, TSH, T4 #### [facility] [address] [place] [address] Dr. Abelardo Barrett MCV (RBC) [Entitic vol] 93.6 fL Normal 81.0-99.0 [facility] Comment on above: Performed By: #### F T3, TSH, T4 #### [facility] [address] [place] [address] Dr. Abelardo Barrett MONO # 1.0 103/ul Critically high 0.3-0.8 [facility] Comment on above: Performed By: #### F T3, TSH, T4 #### [facility] [address] [place] [address] Dr. Abelardo Barrett Monocytes/100 WBC (Bld) 17.1 % Critically high 1.7-12.0 [facility] Comment on above: Performed By: #### F T3, TSH, T4 #### [facility] [address] [place] [address] Dr. Ableardo Barrett NEUT # 3.5 103/ul Normal 1.4-6.5 [facility] Comment on above: Performed By: #### F T3, TSH, T4 #### [facility] [address] [place] [address] Dr. Abelardo Barrett Neutrophils/100 WBC (Bld) 63.3 % Normal 43.0-75.0 [facility] Comment on above: Performed By: #### F T3, TSH, T4 #### [facility] [address] [place] [address] Dr. Abelardo Barrett Platelet mean volume (Bld) [Entitic vol] 8.8 fL Critically low 9.5-13.5 [facility] Comment on above: Performed By: #### F T3, TSH, T4 #### [facility] [address] [place] [address] Dr. Abelardo Barrett PLT 255 103/ul Normal 150-450 [facility] Comment on above: Performed By: #### F T3, TSH, T4 #### [facility] [address] [place] [address] Dr. Abelardo Barrett RBC 2.50 106/ul Critically low 4.20-5.40 [facility] Comment on above: Performed By: #### F T3, TSH, T4 #### [facility] [address] [address] [address] Abelardo Barrett WBC 5.6 103/ul Normal 4.0-11.0 [facility] Comment on above: Performed By: #### F T3, TSH, T4 #### [facility] [address] [address] [address] Abelardo Barrett ER URINE PROFILEon 3 Bilirubin Ql (U) Negative Normal NEGATIVE [facility] Comment on above: Performed By: #### F T3, TSH, T4 #### [facility] [address] [place] [address] Dr. Abelardo Barrett Clarity (U) CLEAR Normal CLEAR [facility] Comment on above: Performed By: #### F T3, TSH, T4 #### [facility] [address] [address] [address] Abelardo Barrett Color (U) LT. YELLOW Normal YELLOW [facility] Comment on above: Performed By: #### F T3, TSH, T4 #### [facility] [address] [address] [address] Abelardo BOWMAN A micrscopic examina tion will be performed if indicated. Normal [facility] Comment on above: Performed By: #### F T3, TSH, T4 #### [facility] [address] [address] [address] Abelardo Barrett Glucose Ql (U) Negative Normal NEGATIVE [facility] Comment on above: Performed By: #### F T3, TSH, T4 #### [facility] [address] [address] [address] Abelardo Barrett Hemoglobin Ql (U) Negative Normal NEGATIVE [facility] Comment on above: Performed By: #### F T3, TSH, T4 #### [facility] [address] [address] [address] Abelardo Barrett Ketones Ql (U) Negative Normal NEGATIVE [facility] Comment on above: Performed By: #### F T3, TSH, T4 #### [facility] [address] [place] [address] Dr. Abeladro Barrett LEUKOCYTES TRACE Abnormal NEGATIVE [facility] Comment on above: Performed By: #### F T3, TSH, T4 #### [facility] [address] [place] [address] Dr. Abelardo Barrett Nitrite Ql (U) Negative Normal NEGATIVE [facility] Comment on above: Performed By: #### F T3, TSH, T4 #### [facility] [address] [place] [address] Dr. Abelardo Barrett pH (U) 6.5 [pH] Normal 5-9 [facility] Comment on above: Performed By: #### F T3, TSH, T4 #### [facility] [address] [place] [address] Dr. Abelardo Barrett SPEC GRAVITY <=1.005 Abnormal 1.005-<=1.02 5 [facility] Comment on above: Performed By: #### F T3, TSH, T4 #### [facility] [address] [place] [address] Dr. Abelardo Barrett UA PROTEIN Negative Normal NEGATIVE/ TRACE [facility] Comment on above: Performed By: #### F T3, TSH, T4 #### [facility] [address] [place] [address] Dr. Abelardo Barrett UR MICRO IND INDICATED Normal [facility] Comment on above: Performed By: #### F T3, TSH, T4 #### [facility] [address] [place] [address] Dr. Abelardo Barrett Urobilinogen Qn (U) 0.2 {Erik'U}/dL Normal 0.2 - 1. 0 [facility] Comment on above: Performed By: #### F T3, TSH, T4 #### [facility] [address] [place] [address] Dr. Abelardo Barrett PROF 14(COMP METB)on 023 Albumin [Mass/Vol] 2.2 g/dL Critically low 3.4-5.0 [facility] Comment on above: Performed By: #### F T3, TSH, T4 #### [facility] [address] [address] [address] Abelardo Barrett Albumin/Globulin [Mass ratio] 0.6 {ratio} Normal [facility] Comment on above: Performed By: #### F T3, TSH, T4 #### [facility] [address] [address] [address] Abelardo Barrett ALP [Catalytic activity/Vol] 49 U/L Normal 46-116 [facility] Comment on above: Performed By: #### F T3, TSH, T4 #### [facility] [address] [address] [address] Abelardo Barrett ALT [Catalytic activity/Vol] 36 U/L Normal 14-59 [facility] Comment on above: Performed By: #### F T3, TSH, T4 #### [facility] [address] [address] [address] Abelardo Barrett Anion gap [Moles/Vol] 12.2 mmol/L Normal [facility] Comment on above: Performed By: #### F T3, TSH, T4 #### [facility] [address] [address] [address] Abelardo Barrett AST [Catalytic activity/Vol] 43 U/L Critically high 15-37 [facility] Comment on above: Performed By: #### F T3, TSH, T4 #### [facility] [address] [address] [address] Abelardo Barrett Bilirubin [Mass/Vol] 0.7 mg/dL Normal 0.2-1.0 [facility] Comment on above: Performed By: #### F T3, TSH, T4 #### [facility] [address] [address] [address] Abelardo Barrett Calcium [Mass/Vol] 11.0 mg/dL Critically high 8.5-10.[address] [facility] Comment on above: Performed By: #### F T3, TSH, T4 #### [facility] [address] [address] [address] Abelardo Barrett Chloride [Moles/Vol] 98 mmol/L Normal 98-107 [facility] Comment on above: Performed By: #### F T3, TSH, T4 #### [facility] [address] [address] [address] Abelardo Barrett CO2 [Moles/Vol] 31.7 mmol/L Normal 21.0-32.0 [facility] Comment on above: Performed By: #### F T3, TSH, T4 #### [facility] [address] [place] [address] Dr. Abelardo Barrett Creatinine [Mass/Vol] 1.17 mg/dL Critically high 0.55-1.02 [facility] Comment on above: Performed By: #### F T3, TSH, T4 #### [facility] [address] [place] [address] Dr. Abelardo Barrett EGFR-AF BELIZEAN 55 mL/min/1.73m2 Critically low >=60 [facility] Comment on above: Performed By: #### F T3, TSH, T4 #### [facility] [address] [place] [address] Dr. Abelardo Barrett EGFR-NON AF BELIZEAN 45 mL/min/1.73m2 Critically low >=60 [facility] Comment on above: Performed By: #### F T3, TSH, T4 #### [facility] [address] [place] [address] Dr. Abelardo Barrett Globulin (S) [Mass/Vol] 3.4 g/dL Normal [facility] Comment on above: Performed By: #### F T3, TSH, T4 #### [facility] [address] [place] [address] Dr. Abelardo Barrett Glucose [Mass/Vol] 107 mg/dL Critically high 74-106 [facility] Comment on above: Performed By: #### F T3, TSH, T4 #### [facility] [address] [place] [address] Dr. Abelardo Barrett Potassium [Moles/Vol] 4.9 mmol/L Normal 3.5-5.1 [facility] Comment on above: Performed By: #### F T3, TSH, T4 #### [facility] [address] [place] [address] Dr. Abelardo Barrett Protein [Mass/Vol] 5.6 g/dL Critically low 6.4-8.2 [facility] Comment on above: Performed By: #### F T3, TSH, T4 #### [facility] [address] [address] [address] Abelardo Barrett Sodium [Moles/Vol] 137 mmol/L Normal 136-145 [facility] Comment on above: Performed By: #### F T3, TSH, T4 #### [facility] [address] [address] [address] Abelardo Barrett Urea nitrogen [Mass/Vol] 27.0 mg/dL Critically high 7.0-18.0 [facility] Comment on above: Performed By: #### F T3, TSH, T4 #### [facility] [address] [place] [address] Dr. Abelardo Barrett Urea nitrogen/Creatinine [Mass ratio] 23.1 mg/mg Normal [facility] Comment on above: Performed By: #### F T3, TSH, T4 #### [facility] [address] [place] [address] Dr. Abelardo Barrett URINE MICROSCOPIC ONLYon BACTERIA TRACE Abnormal NONE SEEN [facility] Comment on above: Performed By: #### F T3, TSH, T4 #### [facility] [address] [place] [address] Dr. Abelardo Barrett Bacteria identified Cx Nom (U) NOT INDICATED Normal [facility] Comment on above: Performed By: #### F T3, TSH, T4 #### [facility] [address] [place] [address] Dr. Abelardo Barrett CAST NONE SEEN Normal NONE SEEN [facility] Comment on above: Performed By: #### F T3, TSH, T4 #### [facility] [address] [place] [address] Dr. Abelardo Barrett Crystals LM Nom (Urine sed) NONE SEEN Normal NONE SEEN [facility] Comment on above: Performed By: #### F T3, TSH, T4 #### [facility] [address] [place] [address] Dr. Abelardo Barrett Epithelial cells LM Ql (Urine sed) RARE Normal NONE SEEN /RARE [facility] Comment on above: Performed By: #### F T3, TSH, T4 #### [facility] [address] [address] [address] Abelardo Barrett MUCOUS NONE SEEN Normal NONE SEEN [facility] Comment on above: Performed By: #### F T3, TSH, T4 #### [facility] [address] [address] [address] Abelardo Barrett RBC 0-2 Normal 0-2 [facility] Comment on above: Performed By: #### F T3, TSH, T4 #### [facility] [address] [address] [address] Abelardo Barrett WBC 0-2 Abnormal NONE SEEN [facility] Comment on above: Performed By: #### F T3, TSH, T4 #### [facility] [address] [address] [address] Abelardo Barrett Bacteria Spec Anaerobe Culto n 05-27-2022 Bacteria identified Anaer cx Nom (Unsp spec) Culture, Anaerobic Status = F No anaerobes grown after 4 days. Normal [facility] Comment on above: Performed By: #### 1 988-5 #### [facility] [address] [place] [address] Bacteria identified Anaer cx Nom (Unsp spec) Culture, Anaerobic Status = F No anaerobes grown after 4 days. Normal [facility] Comment on above: Performed By: #### 1 988-5 #### [facility] [address] [place] [address] Bacteria Tiss Culton 023 Bacteria identified Cx [...] to a previously preliminary verified report. Normal [facility] Comment on above: Performed By: #### 1 988-5 #### [facility] [address] [place] [address] Bacteria identified Cx Nom (Tiss) Culture, Tissue [...] to a previously preliminary verified report. Normal [facility] Comment on above: Performed By: #### 1 988-5 #### [facility] [address] [place] [address] Blood type and Indirect anti body screen panel (Bld)on 05-27-2022 ABO group Nom (Bld) O Normal [facility] Comment on above: Performed By: #### 3 4532-2 #### [facility] [address] [place] [address] Rh Type Negative Normal [facility] Comment on above: Performed By: #### 3 4532-2 #### [facility] [address] [place] [address] ABO group Nom (Bld) O [facility] Blood group antibody screen Ql Negative [facility] Rh Nom (Bld) Negative [facility] Fungus Skin Culton 3 Fungus identified Cx Nom (Skin) Culture, Fungus Status = F No growth at 4 weeks Normal [facility] Comment on above: Performed By: #### 3 4532-2 #### [facility] [address] [place] [address] Fungus identified Cx Nom (Skin) Culture, Fungus Status = F No growth at 4 weeks Normal [facility] Comment on above: Performed By: #### 1 988-5 #### [facility] [address] [place] [address] Glucose Auto test strip (Bld ) [Mass/Vol]on 05-27-2022 Glucose [Mass/Vol] 98 mg/dL Normal 70-99 [facility] Comment on above: Performed By: #### 2 340-8 #### [facility] [address] [place] [address] Glucose [Mass/Vol] 98 mg/dL 70 - 99 mg/dL [facility] Interpretation and review of laboratory results [facility] Mycobacterium Spec Culton Mycobacterium sp identified Org specific cx Nom (Unsp spec) Culture AFB Status = C No growth at 8 weeks AFB Stain Status = F No acid fast bacilli seen Normal [facility] Comment on above: Performed By: #### 1 988-5 #### [facility] [address] [place] [address] Mycobacterium sp identified Org specific cx Nom (Unsp spec) Culture AFB Status = C No growth at 8 weeks AFB Stain Status = F No acid fast bacilli seen Normal [facility] Comment on above: Performed By: #### 5 43-9 #### [facility] [address] [place] [address] Performed By: #### 1 988-5 #### [facility] [address] [place] [address] Pathology studyon 05-27-2022 Pathology study Left hip [...] interpretation of this case was performed at [facility]. These tests have not been [...] was performed at [facility], [address] [place] [address]. Microscopic examination was performed. Normal [facility] Comment on above: Performed By: #### 1 1526-1 #### [facility] [address] [place], [place] [id number] [facility] [address] [place] [address] SARS-CoV-2 (COVID-19) RNA NA A+probe Ql (Resp)on 05-27-2022 Interpretation and review of laboratory results Normal [facility] SARS-CoV-2 (COVID-19) RdRp gene STEVE+probe Ql (Resp) Not detected Not Detected [employer] [facility] SARS-CoV-2 RNA Resp Ql STEVE+p robeon 05-27-2022 SARS-CoV-2 (COVID-19) RNA STEVE+probe Ql (Resp) Not detected Normal Not Detected [facility] Comment on above: Performed By: #### 9 4500-6 #### [facility] [address] [place] [address] XR FLUORO UP TO 1 HOUR (STAT ISTICS)(NO REPORT)on 05-27-2022 XR FLUORO UP TO 1 HOUR (STATISTICS)(NO REPORT) This order has been auto-finalized and does not contain a result. Normal [facility] XR Fluoro Up To 1 Hour (Stat [...] Self Edit Transcribed Date: 05/27/2022 14:17 Normal [facility] XR Pelvis 1-2 Viewson 2022 No acute [...] By: Self Edit Transcribed Date: 05/27/2022 14:17 [facility] Radiology Study observation (narrative) [employer] XR Pelvis 1-2 ViewsOrdered B y: Miguelangel Martinez on 05-27-2022 [email or web address] Work Phone: Blood type and Indirect anti body screen panel (Bld)on 05-17-2022 ABO group Nom (Bld) O Normal [facility] Comment on above: Performed By: #### 3 4532-2 #### [facility] [address] [place] [address] Rh Type Negative Normal [facility] Comment on above: Performed By: #### 3 4532-2 #### [facility] [address] [place] [address] CRP [Mass/Vol]on 05-17-2022 Anion gap [Moles/Vol] 11 mmol/L Normal 6-18 [facility] Comment on above: Order Comment: Sampl e received unlabeled or with name discrepancy. The Physician, Clinican or authorized designee has authorized the release of the results and assumes responsibility for sample identification. Performed By: #### 1 988-5 #### [facility] [address] [place] [address] Calcium [Mass/Vol] 10.9 mg/dL High 8.9-10.3 [facility] Comment on above: Order Comment: Sampl e received unlabeled or with name discrepancy. The Physician, Clinican or authorized designee has authorized the release of the results and assumes responsibility for sample identification. Performed By: #### 1 988-5 #### [facility] [address] [place] [address] Chloride [Moles/Vol] 102 mmol/L Normal 98-107 [facility] Comment on above: Order Comment: Sampl e received unlabeled or with name discrepancy. The Physician, Clinican or authorized designee has authorized the release of the results and assumes responsibility for sample identification. Performed By: #### 1 988-5 #### [facility] [address] [place] [address] CO2 [Moles/Vol] 27 mmol/L Normal 22-32 [facility] Comment on above: Order Comment: Sampl e received unlabeled or with name discrepancy. The Physician, Clinican or authorized designee has authorized the release of the results and assumes responsibility for sample identification. Performed By: #### 1 988-5 #### [facility] [address] [place] [address] Creatinine [Mass/Vol] 0.92 mg/dL Normal 0.60-1.30 [facility] Comment on above: Order Comment: Sampl e received unlabeled or with name discrepancy. The Physician, Clinican or authorized designee has authorized the release of the results and assumes responsibility for sample identification. Performed By: #### 1 988-5 #### [facility] [address] [place] [address] GFR/1.73 sq M.predicted among non-blacks MDRD (S/P/Bld) [Vol rate/Area] 65 mL/min/{1.73_m2} Normal >=60 [facility] Comment on above: Order Comment: Sampl e received unlabeled or with name discrepancy. The Physician, Clinican or authorized designee has authorized the release of the results and assumes responsibility for sample identification. Result Comment: Effe ctive February 07, 2022, calculation based on the?Chronic Kidney Disease Epidemiology Collaboration (CKD-EPI) equation refit?without adjustment for race. Performed By: #### 1 988-5 #### [facility] [address] [place] [address] Glucose [Mass/Vol] 86 mg/dL Normal 70-99 [facility] Comment on above: Order Comment: Sampl e received unlabeled or with name discrepancy. The Physician, Clinican or authorized designee has authorized the release of the results and assumes responsibility for sample identification. Performed By: #### 1 988-5 #### [facility] [address] [place] [address]367 Potassium [Moles/Vol] 4.6 mmol/L Normal 3.6-5.1 [facility] Comment on above: Order Comment: Sampl e received unlabeled or with name discrepancy. The Physician, Clinican or authorized designee has authorized the release of the results and assumes responsibility for sample identification. Performed By: #### 1 988-5 #### [facility] [address] [place] [address]60 Sodium [Moles/Vol] 140 mmol/L Normal 136-145 [facility] Comment on above: Order Comment: Sampl e received unlabeled or with name discrepancy. The Physician, Clinican or authorized designee has authorized the release of the results and assumes responsibility for sample identification. Performed By: #### 1 988-5 #### [facility] [address] [place] [address] Urea nitrogen [Mass/Vol] 36 mg/dL High 8-20 [facility] Comment on above: Order Comment: Sampl e received unlabeled or with name discrepancy. The Physician, Clinican or authorized designee has authorized the release of the results and assumes responsibility for sample identification. Performed By: #### 1 988-5 #### [facility] [address] [place] [address]006 Urea nitrogen/Creatinine [Mass ratio] 39.1 mg/mg High 12.0-20.0 [facility] Comment on above: Order Comment: Sampl e received unlabeled or with name discrepancy. The Physician, Clinican or authorized designee has authorized the release of the results and assumes responsibility for sample identification. Performed By: #### 1 988-5 #### [facility] [address] [place] [address] Hemogram and platelets WO di fferential panel (Bld)on 05-17-2022 Sed Rate 18 mm/hr Normal 0-20 [facility] Comment on above: Performed By: #### 2 4317-0 #### [facility] [address] [place] [address] MG MAMM SCREEN 3D YONI CADon 04-07-2022 MG MAMM SCREEN 3D YONI CAD Patient: ANASTASIA PONCE Exam Date: 04/07/2022 : 1945 Gender:F Ordering : DR KERVIN OSORIO Admission #: [id number] Family : DR DORCAS HERNANDEZ . Order #: [id number] CLICK HERE TO VIEW EXAM RADIOLOGY REPORT [...] Treatments None Family Cancers None LOCATION: [facility] BREAST COMPOSITION: Heterogeneously dense,which may obscure [...] MD on 04/07/2022 at 11:00 Normal [facility] CBC AUTO DIFFon 03-30-2022 BASO # 0.0 103/ul Normal 0.0-0.1 [facility] Comment on above: Performed By: #### F T3, TSH, T4 #### [facility] [address] [place] [address] Dr. Abelardo Barrett Basophils/100 WBC (Bld) 0.9 % Normal 0.2-2.0 [facility] Comment on above: Performed By: #### F T3, TSH, T4 #### [facility] [address] [place] [address] Dr. Abelardo Barrett EO # 0.1 103/ul Normal 0.0-0.7 [facility] Comment on above: Performed By: #### F T3, TSH, T4 #### [facility] [address] [place] [address] Dr. Abelardo Barrett Eosinophils/100 WBC (Bld) 2.0 % Normal 0.9-7.0 [facility] Comment on above: Performed By: #### F T3, TSH, T4 #### [facility] [address] [place] [address] Dr. Abelardo Barrett Erythrocyte distribution width (RBC) [Ratio] 12.5 % Normal 11.0-15.0 [facility] Comment on above: Performed By: #### F T3, TSH, T4 #### [facility] [address] [place] [address] Dr. Abelardo Barrett Hematocrit (Bld) [Volume fraction] 37.9 % Normal 36.0-48.0 [facility] Comment on above: Performed By: #### F T3, TSH, T4 #### [facility] [address] [place] [address] Dr. Abelardo Barrett Hemoglobin (Bld) [Mass/Vol] 12.6 g/dL Normal 12.0-16.0 [facility] Comment on above: Performed By: #### F T3, TSH, T4 #### [facility] [address] [place] [address] Dr. Abelardo Barrett IG # 0.01 10e3/ul Normal 0.00-0.03 [facility] Comment on above: Performed By: #### F T3, TSH, T4 #### [facility] [address] [place] [address] Dr. Abelardo Barrett IG % 0.2 % Normal 0.0-0.5 [facility] Comment on above: Performed By: #### F T3, TSH, T4 #### [facility] [address] [place] [address] Dr. Abelardo Barrett LYMPH # 1.2 103/ul Normal 1.2-3.8 [facility] Comment on above: Performed By: #### F T3, TSH, T4 #### [facility] [address] [place] [address] Dr. Abelardo Barrett Lymphocytes/100 WBC (Bld) 26.5 % Normal 20.5-60.0 [facility] Comment on above: Performed By: #### F T3, TSH, T4 #### [facility] [address] [place] [address] Dr. Abelardo Barrett MANUAL DIFF REQ NO Normal [facility] Comment on above: Performed By: #### F T3, TSH, T4 #### [facility] [address] [place] [address] Dr. Abelardo Barrett MCH (RBC) [Entitic mass] 29.9 pg Normal 26.7-34.0 [facility] Comment on above: Performed By: #### F T3, TSH, T4 #### [facility] [address] [place] [address] Dr. Abelardo Barrett MCHC (RBC) [Mass/Vol] 33.2 g/dL Normal 29.9-35.2 [facility] Comment on above: Performed By: #### F T3, TSH, T4 #### [facility] [address] [place] [address] Dr. Abelardo Barrett MCV (RBC) [Entitic vol] 90.0 fL Normal 81.0-99.0 [facility] Comment on above: Performed By: #### F T3, TSH, T4 #### [facility] [address] [place] [address] Dr. Abelardo Barrett MONO # 0.5 103/ul Normal 0.3-0.8 [facility] Comment on above: Performed By: #### F T3, TSH, T4 #### [facility] [address] [place], [place] [address] Dr. Abelardo Barrett Monocytes/100 WBC (Bld) 10.1 % Normal 1.7-12.0 [facility] Comment on above: Performed By: #### F T3, TSH, T4 #### [facility] [address] [place] [address] Dr. Abelardo Barrett NEUT # 2.8 103/ul Normal 1.4-6.5 [facility] Comment on above: Performed By: #### F T3, TSH, T4 #### [facility] [address] [place] [address] Dr. Abelardo Barrett Neutrophils/100 WBC (Bld) 60.3 % Normal 43.0-75.0 [facility] Comment on above: Performed By: #### F T3, TSH, T4 #### [facility] [address] [place] [address] Dr. Abelardo Barrett Platelet mean volume (Bld) [Entitic vol] 8.6 fL Critically low 9.5-13.5 [facility] Comment on above: Performed By: #### F T3, TSH, T4 #### [facility] [address] [place] [address] Dr. Abelardo Barrett PLT 248 103/ul Normal 150-450 [facility] Comment on above: Performed By: #### F T3, TSH, T4 #### [facility] [address] [place] [address] Dr. Abelardo Barrett RBC 4.21 106/ul Normal 4.20-5.40 [facility] Comment on above: Performed By: #### F T3, TSH, T4 #### [facility] [address] [place] [address] Dr. Abelardo Barrett WBC 4.6 103/ul Normal 4.0-11.0 [facility] Comment on above: Performed By: #### F T3, TSH, T4 #### [facility] [address] [place] [address] Dr. Abelardo Barrett FREE THYROXINE INDEX T7on FTI 2.73 Normal 1.30-4.50 [facility] Comment on above: Performed By: #### C MP, LIPID #### [facility] [address] [address] [address] Abelardo Barrett T3U 35.0 % Normal 30.0-39.0 [facility] Comment on above: Performed By: #### C MP, LIPID #### [facility] [address] [address] [address] Abelardo Barrett T4 [Mass/Vol] 7.80 ug/dL Normal 4.80-13.90 [facility] Comment on above: Performed By: #### C MP, LIPID #### [facility] [address] [place] [address] Dr. Abelardo Barrett GLYCOHEMOGLOBIN A1Con 2021 ADA RECOMMENDATION SEE BELOW Normal [facility] Comment on above: Result Comment: ADA RECOMMENDED LIMIT 4.0 - 6.0 ADA THERAPEUTIC TARGET < 7.0 ACTION SUGGESTED > 7.0 Performed By: #### C MP, LIPID #### [facility] [address] [place] [address] Dr. Abelardo Barrett Glucose [Mass/Vol] 123 mg/dL Normal [facility] Comment on above: Performed By: #### C MP, LIPID #### [facility] [address] [place] [address] Dr. Abelardo Barrett HbA1c (Bld) [Mass fraction] 5.9 % Normal 4.5-6.2 [facility] Comment on above: Performed By: #### C MP, LIPID #### [facility] [address] [place] [address] Dr. Abelardo Barrett IRONon 03-30-2022 Iron [Mass/Vol] 94.0 ug/dL Normal 50.0-170.0 [facility] Comment on above: Performed By: #### C MP, LIPID #### [facility] [address] [place] [address] Dr. Abelardo Barrett LIPID PROFILEon 03-30-2022 CHOL-HDL RATIO NORM SEE BELOW Normal [facility] Comment on above: Result Comment: 3.3 - 4.4 LOW RISK 4.4 - 7.1 AVERAGE RISK 7.1 - 11.0 MODERATE RISK >11.0 HIGH RISK Performed By: #### C MP, LIPID #### [facility] [address] [address] [address] Abelardo Barrett Cholesterol [Mass/Vol] 186 mg/dL Normal <=200 [facility] Comment on above: Performed By: #### C MP, LIPID #### [facility] [address] [address] [address] Abelardo Barrett Cholesterol in HDL [Mass/Vol] 86 mg/dL Critically high 40-60 [facility] Comment on above: Performed By: #### C MP, LIPID #### [facility] [address] [address] [address] Abelardo Barrett Cholesterol in LDL [Mass/Vol] 88.8 mg/dL Normal [facility] Comment on above: Performed By: #### C MP, LIPID #### [facility] [address] [address] [address] Abelardo Barrett Cholesterol.total/C holesterol in HDL [Mass ratio] 2.2 {ratio} Normal [facility] Comment on above: Performed By: #### C MP, LIPID #### [facility] [address] [address] [address] Abelardo Barrett HDL NORMAL > or = 60 mg/dl - LO W CARDIOVASCULAR RISK <40 mg/dl - HIGH CARDIOVASCULAR RISK Normal [facility] Comment on above: Performed By: #### C MP, LIPID #### [facility] [address] [address] [address] Abelardo Barrett LDL CALC NORMAL SEE BELOW Normal [facility] Comment on above: Result Comment: <100 mg/dl OPTIMAL 100 - 129 mg/dl NEAR OR ABOVE OPTIMAL 130 - 159 mg/dl BORDERLINE HIGH 160 - 189 mg/dl HIGH >190 mg/dl VERY HIGH Performed By: #### C MP, LIPID #### [facility] [address] [address] [address] Abelardo Barrett Triglyceride [Mass/Vol] 56 mg/dL Normal <=150 [facility] Comment on above: Performed By: #### C MP, LIPID #### [facility] [address] [address] [address] Abelardo Barrett VLDL CALC 11.2 mg/dL Normal [facility] Comment on above: Performed By: #### C MP, LIPID #### [facility] [address] [place] [address] Dr. Abelardo Barrett PROF 14(COMP METB)on 022 Albumin [Mass/Vol] 3.7 g/dL Normal 3.4-5.0 [facility] Comment on above: Performed By: #### C MP, LIPID #### [facility] [address] [place] [address] Dr. Abelardo Barrett Albumin/Globulin [Mass ratio] 1.0 {ratio} Normal [facility] Comment on above: Performed By: #### C MP, LIPID #### [facility] [address] [place] [address] Dr. Abelardo Barrett ALP [Catalytic activity/Vol] 59 U/L Normal 46-116 [facility] Comment on above: Performed By: #### C MP, LIPID #### [facility] [address] [place] [address] Dr. Abelardo Barrett ALT [Catalytic activity/Vol] 30 U/L Normal 14-59 [facility] Comment on above: Performed By: #### C MP, LIPID #### [facility] [address] [place] [address] Dr. Abelardo Barrett Anion gap [Moles/Vol] 9.0 mmol/L Normal [facility] Comment on above: Performed By: #### C MP, LIPID #### [facility] [address] [place] [address] Dr. Abelardo Barrett AST [Catalytic activity/Vol] 17 U/L Normal 15-37 [facility] Comment on above: Performed By: #### C MP, LIPID #### [facility] [address] [place] [address] Dr. Abelardo Barrett Bilirubin [Mass/Vol] 0.6 mg/dL Normal 0.2-1.0 [facility] Comment on above: Performed By: #### C MP, LIPID #### [facility] [address] [place] [address] Dr. Abelardo Barrett Calcium [Mass/Vol] 9.1 mg/dL Normal 8.5-10.1 [facility] Comment on above: Performed By: #### C MP, LIPID #### [facility] [address] [place] [address] Dr. Abelardo Barrett Chloride [Moles/Vol] 104 mmol/L Normal 98-107 [facility] Comment on above: Performed By: #### C MP, LIPID #### [facility] [address] [place] [address] Dr. Abelardo Barrett CO2 [Moles/Vol] 30.6 mmol/L Normal 21.0-32.0 [facility] Comment on above: Performed By: #### C MP, LIPID #### [facility] [address] [place] [address] Dr. Abelardo Barrett Creatinine [Mass/Vol] 0.85 mg/dL Normal 0.55-1.02 [facility] Comment on above: Performed By: #### C MP, LIPID #### [facility] [address] [place] [address] Dr. Abelardo Barrett EGFR-AF BELIZEAN >60 Normal >=60 [facility] Comment on above: Performed By: #### C MP, LIPID #### [facility] [address] [place] [address] Dr. Abelardo Barrett EGFR-NON AF BELIZEAN >60 Normal >=60 [facility] Comment on above: Performed By: #### C MP, LIPID #### [facility] [address] [place] [address] Dr. Abelardo Barrett Globulin (S) [Mass/Vol] 3.6 g/dL Normal [facility] Comment on above: Performed By: #### C MP, LIPID #### [facility] [address] [place] [address] Dr. Abelardo Barrett Glucose [Mass/Vol] 93 mg/dL Normal 74-106 [facility] Comment on above: Performed By: #### C MP, LIPID #### [facility] [address] [place] [address] Dr. Abelardo Barrett Potassium [Moles/Vol] 4.6 mmol/L Normal 3.5-5.1 [facility] Comment on above: Performed By: #### C MP, LIPID #### [facility] [address] [place] [address] Dr. Abelardo Barrett Protein [Mass/Vol] 7.3 g/dL Normal 6.4-8.2 [facility] Comment on above: Performed By: #### C MP, LIPID #### [facility] [address] [place] [address] Dr. Abelardo Barrett Sodium [Moles/Vol] 139 mmol/L Normal 136-145 [facility] Comment on above: Performed By: #### C MP, LIPID #### [facility] [address] [place] [address] Dr. Abelardo Barrett Urea nitrogen [Mass/Vol] 33.0 mg/dL Critically high 7.0-18.0 [facility] Comment on above: Performed By: #### C MP, LIPID #### [facility] [address] [place] [address] Dr. Abelardo Barrett Urea nitrogen/Creatinine [Mass ratio] 38.8 mg/mg Normal [facility] Comment on above: Performed By: #### C MP, LIPID #### [facility] [address] [place] [address] Dr. Abelardo Barrett TSHon 03-30-2022 TSH Qn m[IU]/L Critically low 0.358-3.740 [facility] Comment on above: Performed By: #### C MP, LIPID #### [facility] [address] [place] [address] Dr. Abelardo Barrett T4 [facility]on 01-16-2022 T4 [Mass/Vol] 8.3 ug/dL Normal 4.5-12.0 [facility] Comment on above: Performed By: #### C MP, LIPID #### [facility] [address] [place] [address] Dr. Abelardo Barrett FREE T3on 01-15-2022 FREE T3 3.34 pg/mlL Normal 2.18-3.98 [facility] Comment on above: Performed By: #### C MP, LIPID #### [facility] [address] [address] [address] Abelardo Barrett TSHon 01-15-2022 TSH Qn m[IU]/L Critically low 0.358-3.740 [facility] Comment on above: Performed By: #### C MP, LIPID #### [facility] [address] [address] [address] Abelardo Barrett BLOOD GASES BTYon 12-14-2021 02 MODE ROOM AIR [facility] Comment on above: Performed By: #### A BG #### [facility] [address] [address] [address] Abelardo Barrett ALLENS TEST Positive [facility] Comment on above: Performed By: #### A BG #### [facility] [address] [place] [address] Dr. Abelardo Barrett Base excess Calc (Bld) [Moles/Vol] 0.7 mmol/L Normal -2.0-2.0 [facility] Comment on above: Performed By: #### A BG #### [facility] [address] [address] [address] Abelardo Barrett BIPAP PRESSURE [facility] Comment on above: Performed By: #### A BG #### [facility] [address] [address] [address] Abelardo Barrett CO2 [Moles/Vol] 51.6 mmol/L Critically high 23.0-28.0 [facility] Comment on above: Performed By: #### A BG #### [facility] [address] [address] [address] Abelardo Barrett CPAP [facility] Comment on above: Performed By: #### A BG #### [facility] [address] [address] [address] Abelardo Barrett FIO2 [facility] Comment on above: Performed By: #### A BG #### [facility] [address] [address] [address] Abelardo Barrett HCO3 (Bld) [Moles/Vol] 25.0 mmol/L Normal 22.0-26.0 [facility] Comment on above: Performed By: #### A BG #### [facility] [address] [place] [address] Dr. Abelardo Barrett [facility] Comment on above: Performed By: #### A BG #### [facility] [address] [place] [address] Dr. Abelardo Barrett MINUTE VOLUME Normal [facility] Comment on above: Performed By: #### A BG #### [facility] [address] [place] [address] Dr. Abelardo Barrett Oxygen (Bld) [Partial pressure] 83.4 mm[Hg] Normal 80.0-100.0 [facility] Comment on above: Performed By: #### A BG #### [facility] [address] [place] [address] Dr. Abelardo Barrett Oxygen saturation in Blood 97.1 % Normal 95.0-100.0 [facility] Comment on above: Performed By: #### A BG #### [facility] [address] [place] [address] Dr. Abelardo Barrett PCO2 39.3 mmHg Normal 35.0-45.0 [facility] Comment on above: Performed By: #### A BG #### [facility] [address] [place] [address] Dr. Abelardo Barrett PEEP [facility] Comment on above: Performed By: #### A BG #### [facility] [address] [place] [address] Dr. Abelardo Barrett pH (Bld) 7.415 [pH] Normal 7.350-7.450 [facility] Comment on above: Performed By: #### A BG #### [facility] [address] [place] [address] Dr. Abelardo Barrett PIP [facility] Comment on above: Performed By: #### A BG #### [facility] [address] [place] [address] Dr. Abelardo Barrett PS [facility] Comment on above: Performed By: #### A BG #### [facility] [address] [address] [address] Abelardo Barrett PUNCTURE SITE RR Normal [facility] Comment on above: Performed By: #### A BG #### [facility] [address] [address] [address] Abelardo Barrett RATE [facility] Comment on above: Performed By: #### A BG #### [facility] [address] [address] [address] Abelardo Barrett VENT MODE [facility] Comment on above: Performed By: #### A BG #### [facility] [address] [address] [address] Abelardo Barrett [place] [facility] Comment on above: Performed By: #### A BG #### [facility] [address] [address] [address] Abelardo Barrett Cardiovascular Lab Reporton 11-19-2021 Cardiovascular Lab Report [facility]: [id number] Physician: Jian Frank, Department of M.D. Medicine Service Date: 11/19/2021 Division of Birthdate: 1945 Cardiology Room #: Adult Cardiovascular Services [address] [place] [address] Cardiovascular Laboratory Report FINAL IMPRESSIONS: 1. Angiographically nonobstructive coronary arteries. 2. Normal global left ventricular systolic function by noninvasive imaging. RECOMMENDATIONS: 1. Consider alternate etiologies for the patient's shortness of breath, mainly pulmonary; pulmonary function tests have been ordered. 2. Aggressive cardiovascular risk factor modification. 3. Follow up with Dr. Frank in the next 3-4 weeks in the [place] office. 4. Follow up with Dr. Hernandez [...] the left radial artery was obtained. A 6-Qatari sheath was inserted without difficulty. Bilateral selective coronary angiography was performed using 5-Qatari JR4 and JL4 catheters. After reviewing the [...] Frank M.D. Date Trans: 11/19/2021 02:08 P/yennifer [id number] cc: Dorcas Hernandez M.D. [facility] [address] [facility] [id number] Normal [facility] Covid-19 PCR (CVDTBH)on 10-30 SARS-CoV-2 (COVID-19) RNA STEVE+probe Ql (Unsp spec) Not detected Normal NOT DETECTED [facility] Comment on above: Result Comment: This test is not yet approved or cleared by the [place] FDA. When there are no FDA-approved or cleared tests available, and other criteria are met, FDA can make tests available under an emergency access mechanism called an Emergency Use Authorization (EUA). The EUA for this test is supported by the [employer] of Health and Human Service's (HHS's) declaration [...] By: #### F T3, TSH, T4 #### [facility] [address] [place] [address] Dr. Abelardo Barrett CBC AUTO DIFFon 11-14-2021 BASO # 0.0 103/ul Normal 0.0-0.1 [facility] Comment on above: Performed By: #### F T3, TSH, T4 #### [facility] [address] [place] [address] Dr. Abelardo Barrett Basophils/100 WBC (Bld) 0.8 % Normal 0.2-2.0 [facility] Comment on above: Performed By: #### F T3, TSH, T4 #### [facility] [address] [place] [address] Dr. Abelardo Barrett EO # 0.1 103/ul Normal 0.0-0.7 [facility] Comment on above: Performed By: #### F T3, TSH, T4 #### [facility] [address] [place] [address] Dr. Abelardo Barrett Eosinophils/100 WBC (Bld) 2.1 % Normal 0.9-7.0 [facility] Comment on above: Performed By: #### F T3, TSH, T4 #### [facility] [address] [place] [address] Dr. Abelardo Barrett Erythrocyte distribution width (RBC) [Ratio] 12.0 % Normal 11.0-15.0 [facility] Comment on above: Performed By: #### F T3, TSH, T4 #### [facility] [address] [address] [address] Abelardo Barrett Hematocrit (Bld) [Volume fraction] 36.2 % Normal 36.0-48.0 [facility] Comment on above: Performed By: #### F T3, TSH, T4 #### [facility] [address] [address] [address] Abelardo Barrett Hemoglobin (Bld) [Mass/Vol] 11.6 g/dL Critically low 12.0-16.0 [facility] Comment on above: Performed By: #### F T3, TSH, T4 #### [facility] [address] [place] [address] Dr. Abelardo Barrett IG # 0.01 10e3/ul Normal 0.00-0.03 [facility] Comment on above: Performed By: #### F T3, TSH, T4 #### [facility] [address] [place] [address] Dr. Abelardo Barrett IG % 0.2 % Normal 0.0-0.5 [facility] Comment on above: Performed By: #### F T3, TSH, T4 #### [facility] [address] [place] [address] Dr. Abelardo Barrett LYMPH # 0.8 103/ul Critically low 1.2-3.8 [facility] Comment on above: Performed By: #### F T3, TSH, T4 #### [facility] [address] [place] [address] Dr. Abelardo Barrett Lymphocytes/100 WBC (Bld) 15.8 % Critically low 20.5-60.0 [facility] Comment on above: Performed By: #### F T3, TSH, T4 #### [facility] [address] [place] [address] Dr. Abelardo Barrett MANUAL DIFF REQ NO Normal [facility] Comment on above: Performed By: #### F T3, TSH, T4 #### [facility] [address] [address] [address] Abelardo Barrett MCH (RBC) [Entitic mass] 30.2 pg Normal 26.7-34.0 [facility] Comment on above: Performed By: #### F T3, TSH, T4 #### [facility] [address] [address] [address] Abelardo Barrett MCHC (RBC) [Mass/Vol] 32.0 g/dL Normal 29.9-35.2 [facility] Comment on above: Performed By: #### F T3, TSH, T4 #### [facility] [address] [place] [address] Dr. Abelardo Barrett MCV (RBC) [Entitic vol] 94.3 fL Normal 81.0-99.0 [facility] Comment on above: Performed By: #### F T3, TSH, T4 #### [facility] [address] [place] [address] Dr. Abelardo Barrett MONO # 0.4 103/ul Normal 0.3-0.8 [facility] Comment on above: Performed By: #### F T3, TSH, T4 #### [facility] [address] [address] [address] Abelardo Barrett Monocytes/100 WBC (Bld) 8.3 % Normal 1.7-12.0 [facility] Comment on above: Performed By: #### F T3, TSH, T4 #### [facility] [address] [place] [address] Dr. Abelardo Barrett NEUT # 3.8 103/ul Normal 1.4-6.5 [facility] Comment on above: Performed By: #### F T3, TSH, T4 #### [facility] [address] [place] [address] Dr. Abelardo Barrett Neutrophils/100 WBC (Bld) 72.8 % Normal 43.0-75.0 [facility] Comment on above: Performed By: #### F T3, TSH, T4 #### [facility] [address] [place] [address] Dr. Abelardo Barrett Platelet mean volume (Bld) [Entitic vol] 8.6 fL Critically low 9.5-13.5 [facility] Comment on above: Performed By: #### F T3, TSH, T4 #### [facility] [address] [place] [address] Dr. Abelardo Barrett PLT 244 103/ul Normal 150-450 [facility] Comment on above: Performed By: #### F T3, TSH, T4 #### [facility] [address] [place] [address] Dr. Abelardo Barrett RBC 3.84 106/ul Critically low 4.20-5.40 [facility] Comment on above: Performed By: #### F T3, TSH, T4 #### [facility] [address] [place] [address] Dr. Abelardo Barrett WBC 5.2 103/ul Normal 4.0-11.0 [facility] Comment on above: Performed By: #### F T3, TSH, T4 #### [facility] [address] [place] [address] Dr. Abelardo Barrett PROF CHEM 8 (BAS METB)on Anion gap [Moles/Vol] 12.0 mmol/L Normal [facility] Comment on above: Performed By: #### B VIBHA HSTROPN #### [facility] [address] [place] [address] Dr. Abelardo Barrett Calcium [Mass/Vol] 9.2 mg/dL Normal 8.5-10.1 [facility] Comment on above: Performed By: #### B VIBHA HSTROPN #### [facility] [address] [place] [address] Dr. Abelardo Barrett Chloride [Moles/Vol] 101 mmol/L Normal 98-107 [facility] Comment on above: Performed By: #### B VIBHA HSTROPN #### [facility] [address] [place] [address] Dr. Abelardo Barrett CO2 [Moles/Vol] 26.3 mmol/L Normal 21.0-32.0 [facility] Comment on above: Performed By: #### B VIBHA HSTROPN #### [facility] [address] [address] [address] Abelardo Barrett Creatinine [Mass/Vol] 0.90 mg/dL Normal 0.55-1.02 [facility] Comment on above: Performed By: #### B VIBHA, HSTROPN #### [facility] [address] [address] [address] Abelardo Barrett EGFR-AF BELIZEAN >60 Normal >=60 [facility] Comment on above: Performed By: #### B MP, HSTROPN #### [facility] [address] [address] [address] Abelardo Barrett EGFR-NON AF BELIZEAN >60 Normal >=60 [facility] Comment on above: Performed By: #### B VIBHA, HSTROPN #### [facility] [address] [address] [address] Abelardo Barrett Glucose [Mass/Vol] 101 mg/dL Normal 74-106 [facility] Comment on above: Performed By: #### B VIBHA, HSTROPN #### [facility] [address] [address] [address] Abelardo Barrett Potassium [Moles/Vol] 4.3 mmol/L Normal 3.5-5.1 [facility] Comment on above: Performed By: #### B VIBHA, HSTROPN #### [facility] [address] [address] [address] Abelardo Barrett Sodium [Moles/Vol] 135 mmol/L Critically low 136-145 [facility] Comment on above: Performed By: #### B MP, HSTROPN #### [facility] [address] [address] [address] Abelardo Barrett Urea nitrogen [Mass/Vol] 34.0 mg/dL Critically high 7.0-18.0 [facility] Comment on above: Performed By: #### B MP, HSTROPN #### [facility] [address] [address] [address] Abelardo Barrett Urea nitrogen/Creatinine [Mass ratio] 37.8 mg/mg Normal [facility] Comment on above: Performed By: #### B MP, HSTROPN #### [facility] [address] [place], [place] [address] Dr. Abelardo Barrett TROPONIN, HIGH SENSITIVITYon 11-14-2021 HSTROP 5.8 pg/mL Normal 4.0-51.3 [facility] Comment on above: Result Comment: CUT- OFF POINTS HAVE BEEN ESTABLISHED BASED ON THE FOURTH UNIVERSAL DEFINITIONS OF MYOCARDIAL INFARCTION. THE UPPER REFERENCE LIMIT (URL) OF TROPONIN, DEFINED THE 99TH PERCENTILE OF cTnI DISTRIBUTION IN A REFERENCE POPULATION, HAS BEEN CONFIRMED THE DECISION THRESHOLD FOR VA DIAGNOSIS. Performed By: #### C MP, LIPID #### [facility] [address] [address] [address] Abelardo Barrett HSTROP 5.8 pg/mL Normal 4.0-51.3 [facility] Comment on above: Result Comment: CUT- OFF POINTS HAVE BEEN ESTABLISHED BASED ON THE FOURTH UNIVERSAL DEFINITIONS OF MYOCARDIAL INFARCTION. THE UPPER REFERENCE LIMIT (URL) OF TROPONIN, DEFINED THE 99TH PERCENTILE OF cTnI DISTRIBUTION IN A REFERENCE POPULATION, HAS BEEN CONFIRMED THE DECISION THRESHOLD FOR VA DIAGNOSIS. Performed By: #### B MP, HSTROPN #### [facility] [address] [address] [address] Abelardo Barrett XR CHEST 1 Von [...] LETICIA HOYT Date: 2021-11-14 12:45 Normal [facility] CBC AUTO DIFFon 10-27-2021 BASO # 0.1 103/ul Normal 0.0-0.1 [facility] Comment on above: Performed By: #### C BC #### [facility] [address] [address] [address] Abelardo Barrett Basophils/100 WBC (Bld) 1.1 % Normal 0.2-2.0 [facility] Comment on above: Performed By: #### C BC #### [facility] [address] [address] [address] Abelardo Barrett EO # 0.2 103/ul Normal 0.0-0.7 [facility] Comment on above: Performed By: #### C BC #### [facility] [address] [place] [address] Dr. Abelardo Barrett Eosinophils/100 WBC (Bld) 3.9 % Normal 0.9-7.0 [facility] Comment on above: Performed By: #### C BC #### [facility] [address] [place] [address] Dr. Abelardo Barrett Erythrocyte distribution width (RBC) [Ratio] 12.1 % Normal 11.0-15.0 [facility] Comment on above: Performed By: #### C BC #### [facility] [address] [place] [address] Dr. Abelardo Barrett Hematocrit (Bld) [Volume fraction] 33.6 % Critically low 36.0-48.0 [facility] Comment on above: Performed By: #### C BC #### [facility] [address] [place] [address] Dr. Abelardo Barrett Hemoglobin (Bld) [Mass/Vol] 11.1 g/dL Critically low 12.0-16.0 [facility] Comment on above: Performed By: #### C BC #### [facility] [address] [place] [address] Dr. Abelardo Barrett IG # 0.01 10e3/ul Normal 0.00-0.03 [facility] Comment on above: Performed By: #### C BC #### [facility] [address] [place] [address] Dr. Abelardo Barrett IG % 0.2 % Normal 0.0-0.5 [facility] Comment on above: Performed By: #### C BC #### [facility] [address] [place] [address] Dr. Abelardo Barrett LYMPH # 1.3 103/ul Normal 1.2-3.8 [facility] Comment on above: Performed By: #### C BC #### [facility] [address] [place] [address] Dr. Abelardo Barrett Lymphocytes/100 WBC (Bld) 28.5 % Normal 20.5-60.0 [facility] Comment on above: Performed By: #### C BC #### [facility] [address] [place] [address] Dr. Abelardo Barrett MANUAL DIFF REQ NO Normal [facility] Comment on above: Performed By: #### C BC #### [facility] [address] [place] [address] Dr. Abelardo Barrett MCH (RBC) [Entitic mass] 30.8 pg Normal 26.7-34.0 [facility] Comment on above: Performed By: #### C BC #### [facility] [address] [place] [address] Dr. Abelardo Barrett MCHC (RBC) [Mass/Vol] 33.0 g/dL Normal 29.9-35.2 [facility] Comment on above: Performed By: #### C BC #### [facility] [address] [place] [address] Dr. Abelardo Barrett MCV (RBC) [Entitic vol] 93.3 fL Normal 81.0-99.0 [facility] Comment on above: Performed By: #### C BC #### [facility] [address] [place] [address] Dr. Abelardo Barrett MONO # 0.5 103/ul Normal 0.3-0.8 [facility] Comment on above: Performed By: #### C BC #### [facility] [address] [place] [address] Dr. Abelardo Barrett Monocytes/100 WBC (Bld) 11.1 % Normal 1.7-12.0 [facility] Comment on above: Performed By: #### C BC #### [facility] [address] [place] [address] Dr. Abelardo Barrett NEUT # 2.5 103/ul Normal 1.4-6.5 [facility] Comment on above: Performed By: #### C BC #### [facility] [address] [address] [address] Abelardo Barrett Neutrophils/100 WBC (Bld) 55.2 % Normal 43.0-75.0 [facility] Comment on above: Performed By: #### C BC #### [facility] [address] [address] [address] Abelardo Barrett Platelet mean volume (Bld) [Entitic vol] 9.1 fL Critically low 9.5-13.5 [facility] Comment on above: Performed By: #### C BC #### [facility] [address] [address] [address] Abelardo Barrett PLT 241 103/ul Normal 150-450 [facility] Comment on above: Performed By: #### C BC #### [facility] [address] [address] [address] Abelardo Barrett RBC 3.60 106/ul Critically low 4.20-5.40 [facility] Comment on above: Performed By: #### C BC #### [facility] [address] [address] [address] Abelardo Barrett WBC 4.6 103/ul Normal 4.0-11.0 [facility] Comment on above: Performed By: #### C BC #### [facility] [address] [place], [place] [id number] Dr. Abelardo Barrett ECHOCARDIO M/2D COMPLETEon 0 10-27-2021 ECHOCARDIO M/2D COMPLETE Patient: ANASTASIA PONCE Exam Date: 10/27/2021 : 1945 Gender:F Ordering : DR DORCAS HERNANDEZ . Admission #: [id number] Family : Order #: [id number] CLICK HERE TO VIEW EXAM ECHOCARDIOGRAM REPORT [...] Area(A4C): 17.20 cm2 Left Atrium Systolic Volume(A2C): 39919 mm3 Left Atrium Systolic Volume(A4C): 74231 mm3 Mitral Valve MV E to A Ratio: 0.80 Deceleration [place]: 2480 mm/s2 Mitral Valve A-Wave Peak Velocity: [...] Mayberry M.D. on 10/27/2021 at 19:38 Normal [facility] FREE T3on 10-27-2021 FREE T3 4.10 pg/mlL Critically high 2.18-3.98 [facility] Comment on above: Performed By: #### F T3, TSH, T4 #### [facility] [address] [address] [address] Abelardo Barrett GLYCOHEMOGLOBIN A1Con 2021 ADA RECOMMENDATION SEE BELOW Normal [facility] Comment on above: Result Comment: ADA RECOMMENDED LIMIT 4.0 - 6.0 ADA THERAPEUTIC TARGET < 7.0 ACTION SUGGESTED > 7.0 Performed By: #### F T3, TSH, T4 #### [facility] [address] [address] [address] Abelardo Barrett Glucose [Mass/Vol] 123 mg/dL Normal [facility] Comment on above: Performed By: #### F T3, TSH, T4 #### [facility] [address] [address] [address] Abelardo Barrett HbA1c (Bld) [Mass fraction] 5.9 % Normal 4.5-6.2 [facility] Comment on above: Performed By: #### F T3, TSH, T4 #### [facility] [address] [address] [address] Abelardo Barrett IRONon 10-27-2021 Iron [Mass/Vol] 63.0 ug/dL Normal 50.0-170.0 [facility] Comment on above: Performed By: #### C MP, LIPID #### [facility] [address] [address] [address] Abelardo Barrett LIPID PROFILEon 10-27-2021 CHOL-HDL RATIO NORM SEE BELOW Normal [facility] Comment on above: Result Comment: 3.3 - 4.4 LOW RISK 4.4 - 7.1 AVERAGE RISK 7.1 - 11.0 MODERATE RISK >11.0 HIGH RISK Performed By: #### C MP, LIPID #### [facility] [address] [address] [address] Abelardo Barrett Cholesterol [Mass/Vol] 163 mg/dL Normal <=200 [facility] Comment on above: Performed By: #### C MP, LIPID #### [facility] [address] [address] [address] Abelardo Barrett Cholesterol in HDL [Mass/Vol] 74 mg/dL Critically high 40-60 [facility] Comment on above: Performed By: #### C MP, LIPID #### [facility] [address] [address] [address] Abelardo Barrett Cholesterol in LDL [Mass/Vol] 79.2 mg/dL Normal [facility] Comment on above: Performed By: #### C MP, LIPID #### [facility] [address] [address] [address] Abelardo Barrett Cholesterol.total/C holesterol in HDL [Mass ratio] 2.2 {ratio} Normal [facility] Comment on above: Performed By: #### C MP, LIPID #### [facility] [id number] [address] Abelardo Barrett HDL NORMAL > or = 60 mg/dl - LO W CARDIOVASCULAR RISK <40 mg/dl - HIGH CARDIOVASCULAR RISK Normal [facility] Comment on above: Performed By: #### C MP, LIPID #### [facility] [address] [address] [address] Abelardo Barrett LDL CALC NORMAL SEE BELOW Normal [facility] Comment on above: Result Comment: <100 mg/dl OPTIMAL 100 - 129 mg/dl NEAR OR ABOVE OPTIMAL 130 - 159 mg/dl BORDERLINE HIGH 160 - 189 mg/dl HIGH >190 mg/dl VERY HIGH Performed By: #### C MP, LIPID #### [facility] [address] [address] [address] Abelardo Barrett Triglyceride [Mass/Vol] 49 mg/dL Normal <=150 [facility] Comment on above: Performed By: #### C MP, LIPID #### [facility] [address] [address] [address] Abelardo Barrett VLDL CALC 9.8 mg/dL Normal [facility] Comment on above: Performed By: #### C MP, LIPID #### [facility] [id number] Abelardo Barrett NM STRESS/REST MULTIon 10-27 NM STRESS/REST MULTI Patient: ANASTASIA PONCE Exam Date: 10/27/2021 : 1945 Gender:F Ordering : DR DORCAS HERNANDEZ . Admission #: [id number] Family : Order #: [id number] CLICK HERE TO VIEW EXAM RADIOLOGY REPORT [...] anteroseptal. Basal inferoseptal. Mid-anteroseptal. Mid-inferoseptal. Apical septal. [place]. SIZE: Large (5 or more segments). SEVERITY: Moderate. TYPE: Mixed. WALL MOTION: Normal. Basal inferoseptal. Mid-anterior. Mid-anteroseptal. [place]. LV SIZE: Normal. 63 mL. TID / [...] MD on 10/27/2021 at 12:10 Normal [facility] PROF 14(COMP METB)on 022 Albumin [Mass/Vol] 3.2 g/dL Critically low 3.4-5.0 [facility] Comment on above: Performed By: #### C MP, LIPID #### [facility] [address] [place] [address] Dr. Abelardo Barrett Albumin/Globulin [Mass ratio] 0.9 {ratio} Normal [facility] Comment on above: Performed By: #### C MP, LIPID #### [facility] [address] [place] [address] Dr. Abelardo Barrett ALP [Catalytic activity/Vol] 50 U/L Normal 46-116 [facility] Comment on above: Performed By: #### C MP, LIPID #### [facility] [address] [place] [address] Dr. Abelardo Barrett ALT [Catalytic activity/Vol] 38 U/L Normal 14-59 [facility] Comment on above: Performed By: #### C MP, LIPID #### [facility] [address] [place] [address] Dr. Abelardo Barrett Anion gap [Moles/Vol] 13.4 mmol/L Normal [facility] Comment on above: Performed By: #### C MP, LIPID #### [facility] [address] [place] [address] Dr. Abelardo Barrett AST [Catalytic activity/Vol] 27 U/L Normal 15-37 [facility] Comment on above: Performed By: #### C MP, LIPID #### [facility] [address] [address] [address] Abelardo Barrett Bilirubin [Mass/Vol] 0.4 mg/dL Normal 0.2-1.0 [facility] Comment on above: Performed By: #### C MP, LIPID #### [facility] [address] [address] [address] Abeladro Barrett Calcium [Mass/Vol] 8.6 mg/dL Normal 8.5-10.1 [facility] Comment on above: Performed By: #### C MP, LIPID #### [facility] [address] [address] [address] Abelardo Barrett Chloride [Moles/Vol] 107 mmol/L Normal 98-107 [facility] Comment on above: Performed By: #### C MP, LIPID #### [facility] [address] [address] [address] Abelardo Barrett CO2 [Moles/Vol] 24.7 mmol/L Normal 21.0-32.0 [facility] Comment on above: Performed By: #### C MP, LIPID #### [facility] [address] [address] [address] Abelardo Barrett Creatinine [Mass/Vol] 0.75 mg/dL Normal 0.55-1.02 [facility] Comment on above: Performed By: #### C MP, LIPID #### [facility] [address] [address] [address] Abelardo Barrett EGFR-AF BELIZEAN >60 Normal >=60 [facility] Comment on above: Performed By: #### C MP, LIPID #### [facility] [address] [address] [address] Abelardo Barrett EGFR-NON AF BELIZEAN >60 Normal >=60 [facility] Comment on above: Performed By: #### C MP, LIPID #### [facility] [address] [place] [address] Dr. Abelardo Barrett Globulin (S) [Mass/Vol] 3.4 g/dL Normal [facility] Comment on above: Performed By: #### C MP, LIPID #### [facility] [address] [address] [address] Abelardo Barrett Glucose [Mass/Vol] 92 mg/dL Normal 74-106 [facility] Comment on above: Performed By: #### C MP, LIPID #### [facility] [address] [address] [address] Abelardo Barrett Potassium [Moles/Vol] 4.1 mmol/L Normal 3.5-5.1 [facility] Comment on above: Performed By: #### C MP, LIPID #### [facility] [address] [address] [address] Abelardo Barrett Protein [Mass/Vol] 6.6 g/dL Normal 6.4-8.2 [facility] Comment on above: Performed By: #### C MP, LIPID #### [facility] [address] [address] [address] Abelardo Barrett Sodium [Moles/Vol] 141 mmol/L Normal 136-145 [facility] Comment on above: Performed By: #### C MP, LIPID #### [facility] [address] [address] [address] Abelardo Barrett Urea nitrogen [Mass/Vol] 29.0 mg/dL Critically high 7.0-18.0 [facility] Comment on above: Performed By: #### C MP, LIPID #### [facility] [address] [address] [address] Abelardo Barrett Urea nitrogen/Creatinine [Mass ratio] 38.7 mg/mg Normal [facility] Comment on above: Performed By: #### C MP, LIPID #### [facility] [address] [address] [address] Abelardo Barrett T4on 10-27-2021 T4 [Mass/Vol] 9.40 ug/dL Normal 4.80-13.90 [facility] Comment on above: Performed By: #### F T3, TSH, T4 #### [facility] [address] [address] [address] Abelardo Barrett TSHon 10-27-2021 TSH Qn m[IU]/L Critically low 0.358-3.740 [facility] Comment on above: Performed By: #### F T3, TSH, T4 #### [facility] [address] [place] [address] Dr. Abelardo Barrett T4 [facility]ABCORPon 10-01-2021 T4 [Mass/Vol] 9.4 ug/dL Normal 4.5-12.0 [facility] Comment on above: Performed By: #### T 4LC #### [facility] [address] [place] [address] Dr. Abelardo Barrett FREE T3on 09-30-2021 FREE T3 4.05 pg/mlL Critically high 2.18-3.98 [facility] Comment on above: Performed By: #### F T3, TSH, T4 #### [facility] [address] [place] [address] Dr. Abelardo Barrett TSHon 09-30-2021 TSH Qn m[IU]/L Critically low 0.358-3.740 [facility] Comment on above: Performed By: #### F T3, TSH, T4 #### [facility] [address] [place] [address] Dr. Abelardo Barrett TSH RANGE SEE BELOW Normal [facility] Comment on above: Result Comment: <0.3 4 UIU/ml HYPERTHYROID 0.34-5.60 UIU/ml EUTHYROID >5.60 UIU/ml HYPOTHYROID Performed By: #### F T3, TSH, T4 #### [facility] [address] [place] [address] Dr. Abelardo Barrett FREE T3on 08-14-2021 FREE T3 1.73 pg/mlL Critically low 2.77-5.27 [facility] Comment on above: Performed By: #### C MP, LIPID #### [facility] [address] [place] [address] Dr. Abelardo Barrett T4on 08-14-2021 T4 [Mass/Vol] 4.40 ug/dL Critically low 5.53-11.00 [facility] Comment on above: Performed By: #### C MP, LIPID #### [facility] [address] [address] [address] Abelardo Barrett TSHon 08-14-2021 TSH 0.349 uIU/mL Critically low 0.470-4.680 [facility] Comment on above: Performed By: #### C MP, LIPID #### [facility] [address] [address] [address] Abelardo Barrett TSH RANGE SEE BELOW Normal [facility] Comment on above: Result Comment: <0.3 4 UIU/ml HYPERTHYROID 0.34-5.60 UIU/ml EUTHYROID >5.60 UIU/ml HYPOTHYROID Performed By: #### C MP, LIPID #### [facility] [address] [address] [address] Abelardo Barrett Outside Colonoscopyon 2020 Outside Colonoscopy [id number] [id number]: 127 Normal [facility] RAD - MISCon 05-14-2020 RAD - MISC [id number] [id number]#[id number]: 127 Normal [facility] Lab Reportson 05-12-2020 Lab Reports [id number] [id number]: 127 Normal [facility] Provider Letter FTMCon 05-07 Provider Letter [facility] Dorcas Hernandez, [address] [place] [address] [place] [address] Re: ANASTASIA PONCE Date of : 1945 Thank you for your referral of Anastasia Ponce who was seen on consultation on April 30, 2020, for positive occult stool. A colonoscopy is planned for further evaluation. I have enclosed my consultation notes for your review. I will be happy to follow Anastasia should her symptoms persist. Sincerely, Ajith Renee MD General Surgery [facility] Consent for Procedure/Surger yon 05-06-2020 Consent for Procedure/Surgery [id number]: 127 [facility] Facesheeton 05-01-2020 Facesheet [id number]: 127 Normal [facility] Ambulatory Clinical Summaryo n 04-30-2020 Ambulatory Clinical Summary {[id number] }CD:[id number] Normal [facility] Ambulatory Clinical Summary {[id number] }CD:[id number] Normal [facility] Physician Referralon 020 Physician Referral [id number]: 127 [facility] Vital Signs Date Time Vital Sign Value Performing Clinician Faci lity 05-27-2022 16:10-0500 Body temperature 96.4 [degF] Saranya Durham MD Work Phone: [facility] [employer] 05-27-2022 16:10-0500 Diastolic blood pressure 72 mm[Hg] Saranya Durham MD Work Phone: [facility] 05-27-2022 16:10-0500 Heart rate 81 /min Saranya Durham MD Work Phone: [facility] 05-27-2022 16:10-0500 SaO2% (BldA) [Mass fraction] 99 % Saranya Durham MD Work Phone: [facility] 05-27-2022 16:10-0500 Systolic blood pressure 145 mm[Hg] Saranya Durham MD Work Phone: [facility] 05-27-2022 14:30-0500 Respiratory rate 15 /min Saranya Durham MD Work Phone: [employer] 07-29-2021 09:16-0400 Body height 162.6 cm Gertrudis Encanracion MD Work Phone: [employer] 07-29-2021 09:16-0400 Body mass index (BMI) [Ratio] 23.34 kg/m2 Gertrudis Encarnacion MD Work Phone: [facility] 07-29-2021 09:16-0400 Body temperature 97.59 [degF] Gertrudis Encarnacion MD Work Phone: [facility] 07-29-2021 09:16-0400 Body weight 61.69 kg Gertrudis Encarnacion MD Work Phone: [facility] 07-29-2021 09:16-0400 Diastolic blood pressure 85 mm[Hg] Gertrudis Encarnacion MD Work Phone: [facility] 07-29-2021 09:16-0400 Heart rate 91 /min Gertrudis Encarnacion MD Work Phone: [facility] 07-29-2021 09:16-0400 Systolic blood pressure 144 mm[Hg] Gertrudis Encarnacion MD Work Phone: [facility] Encounters Encounter Date Encounter Type Care Provider [...] Evaluation and management of inpatient SARANYA DURHAM [facility] Start: 05-27-2022 End: 05-27-2022 Evaluation and management of inpatient Saranya Durham MD Work Phone: [facility] Comment on above: 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 Facility:[facility] Start: 01-15-2022 End: 01-16-[address] DORCAS HERNANDEZ . Facility:[facility] Start: 12-14-2021 End: 12-15-[address] JIAN FRANK Facility:[facility] Start: 11-19-2021 End: 11-20-2021 ambulatory DORCAS HERNANDEZ Facility:[facility] Start: 11-18-2021 Encounter for preprocedural laboratory examination ELA MELTON [facility] Start: 11-17-2021 End: 11-18-2021 ambulatory ELA LINH Facility:[facility] Start: 11-17-2021 End: 11-18-2021 Encounter for preprocedural laboratory examination ELA LINH Facility:[facility] Start: 11-14-2021 End: 11-14-2021 ambulatory NIKHIL GIORDANO Facility:[facility] Start: 11-03-2021 End: 11-16-2021 ambulatory DORCAS HERNANDEZ Facility:[facility] Start: 10-29-2021 End: 10-29-[address] DORCAS HERNANDEZ . Facility:[facility] Start: 10-27-2021 End: 10-28-[address] DORCAS HERNANDEZ . Facility:[facility] Start: 09-30-2021 End: 10-01-[address] DORCAS HERNANDEZ . Facility:[facility] Start: 08-14-2021 End: 08-15-[address] DORCAS HERNANDEZ . Facility:[facility] Start: 07-29-2021 End: 07-29-2021 Patient encounter procedure Gertrudis Encarnacion MD Work Phone: [facility] Comment on above: Rhytides [...] above: Performed By: #### 3 4532-2 #### [facility] [address] [place] [address] Start: 05-27-2022 POCT GLUCOSE BLOOD Cuba Durham MD Work Phone: Start: 05-27-2022 Sars-cov-2 detection by dna/rna Saranya Durham MD Work Phone: Start: 05-27-2022 Antibody screen rbc each serum technique Saranya Durham MD Work Phone: Start: 05-17-2022 Antibody screen [facility] Comment on above: Performed By: #### 3 4532-2 #### [facility] [address] [place] [address] Plan of Treatment Date Care Activity Detail Author Start: 05-27-2023 Falls Risk Assessment Falls Risk Ass essment [employer] Start: 05-17-2023 Hypertension/CHF/CAD Annual BMP Blood Test Hypertension/CHF/CAD Annual BMP Blood Test [employer] Start: 05-17-2022 Adolescent depressio n screening assessment Depression Screening [employer] Start: 05-17-2022 Hepatitis C screening Hepatitis C Sc reening [employer] Start: 05-17-2022 Lipid panel Cholesterol Sc reening (Lipid Panel) [employer] Start: 05-17-2022 Medicare Annual Well ness Visit Medicare Annual Wellness Visit [employer] Start: 05-17-2022 Screening for malign ant neoplasm of breast Breast Cancer Screening [facility] Start: 05-17-2022 Screening for malign ant neoplasm of colon Colorectal Cancer Screening: Colonoscopy [facility] Start: 05-17-2022 Screening for osteoporosis Osteoporosis Screening (Bone Density Screening) [facility] Start: 05-17-2022 Social Influencers o f Health Screening Social Influencers of Health Screening [facility] Start: 04-23-2021 COVID-19 VACCINE (2 - Pfizer 3-dose series) COVID-19 VACCINE (2 - Pfizer 3-dose series) [facility] Start: 04-23-2021 COVID-19 Vaccine (2 - Pfizer series) COVID-19 Vaccine (2 - Pfizer series) [facility] Start: 12-31-2020 Influenza vaccination INFLUENZA VACC INE (#1) [facility] Start: 12-24-2012 Pneumococcal vaccination PNEUM OCOCCAL VACCINE SERIES (1 of 1 - PPSV23) [facility] Start: 12-24-1997 Zoster vaccine hzv l cata for subcutaneous use ZOSTER (SHINGLES) VACCINE (1 of 2) [facility] Start: 12-24-1997 Zoster Vaccines (1 of 2) Zoster Vacc maury (1 of 2) [facility] Start: 12-24-1992 Colonoscopy COLORECTAL CAN CER SCREENING DISCUSSION [facility] Start: 1987 Fasting lipid profile LIPID SCREENIN G [facility] Start: 1987 Screening mammography MAMMOGRA M SCREENING DISCUSSION [facility] Start: 12-24-1968 Screening for malign ant neoplasm of cervix CERVICAL CANCER SCREENING DISCUSSION [facility] Start: 12-24-1966 DTaP,Tdap,and Td Vac cines (1 - Tdap) DTaP,Tdap,and Td Vaccines (1 - Tdap) [facility] Start: 12-24-1966 Third diphtheria, te tanus and acellular pertussis (DTaP) vaccination TDAP (ADULT) [facility] Start: 12-24-1965 Tetanus vaccination TETANUS [facility] Start: 1945 Hepatitis C antibody , confirmatory test HEPATITIS C VIRUS SCREENING [facility] Start: 1945 Screening for osteoporosis DEXA SCAN DISCUSSION [facility] Bacteria identified in Tissue by Culture Culture tissue with gram stain Microbiology Routine Other mechanical complication of internal left hip prosthesis, initial encounter ([facility]) 05/27/2022 11:30 AM EST [facility] Bacteria [...] of internal left hip prosthesis, initial encounter ([facility]) 05/27/2022 11:30 AM EST [facility] Fungus identified in Skin by Culture Culture fungal, other Microbiology Routine 05/27/2022 3:08 PM EST [facility] Mycobacterium sp identified in Unspecified specimen by Organism specific culture Culture AFB Microbiology Routine Other mechanical complication of internal left hip prosthesis, initial encounter ([facility]) 05/27/2022 11:30 AM EST [facility] Mycobacterium sp identified in Unspecified specimen by Organism specific culture Culture AFB Microbiology Routine 05/27/2022 3:08 PM EST [facility]ology [facility] Comment on above: Release Upon Orderin g for 1 Occurrences starting 05/27/2022, 1 completed Immunizations Immunization Date Immunization Notes Care Provider [facility] 04-09-2020 influenza virus vaccine, unspecified formulation Gertrudis Encarnacion MD Work Phone: [facility] Payers Date Payer Category Payer Self-pay 2022 Medicare AETNA MEDICARE A DVANTAGE AETNA MEDICARE ADVANTAGE [id number] 2022-Present [phone] [address] [place] [address] [id number] 2021 Unknown [id number] [id number] [id number] 1957 Medicare [id number] 1957 Medicare [id number] 1945 Unknown [id number] 2.16.840.1.985667.3.579.2.647 1945 Unknown [id number] 2.16.840.1.066676.3.579.2.647 1945 Unknown [id number] 2.16.840.1.262020.3.579.2.1143 1947 Unknown [id number] 2.16.840.1.405190.3.579.2.1143 1947 Unknown [id number] 2.16.840.1.780466.3.579.2.593 1947 Unknown [id number] 2.16.840.1.783036.3.579.2.593 1947 Unknown [id number] 2.16.840.1.486627.3.579.2.593 1947 Unknown [id number] 2.16.840.1.738781.3.579.2.593 1947 Unknown [id number] 2.16.840.1.395453.3.579.2.593 1947 Unknown [id number] 2.16.840.1.191909.3.579.2.593 1947 Unknown [id number] 2.16.840.1.976521.3.579.2.593 1947 Unknown [id number] 2.16.840.1.743202.3.579.2.593 1947 Unknown [id number] 2.16.840.1.556327.3.579.2.593 1947 Unknown [id number] 2.16.840.1.656275.3.579.2.593 1947 Unknown [id number] 2.16.840.1.553847.3.579.2.593 1947 Unknown [id number] 2.16.840.1.990011.3.579.2.593 1947 Unknown [id number] 2.16.840.1.599897.3.579.2.1259 1947 Unknown [id number] 2.16.840.1.220099.3.579.2.1259 1947 Unknown [id number] 2.16.840.1.098436.3.579.2.1259 Unknown [id number] Unknown [id number] 2.16.840.1.874501.3.579.2.462 Social History Date Type Detail Facility Start: 03-10-2021 End: 05-27-2022 Tobacco smoking status NHIS Never smoked tobacco [facility] Start: 03-10-2021 End: 05-27-2022 Tobacco use and exposure Smokeless tobacco non-user [facility] Start: 07-29-2021 Alcohol intake Ex-drinker (finding) [facility] Start: 03-10-2021 History SDOH Alcohol Frequency 1 [facility] Start: 1945 Sex Assigned At Not on file A [facility] Start: 05-27-2022 Alcohol intake Lifetime non-d ariel (finding) [facility] Start: 05-17-2022 End: 05-27-2022 Exposure to SARS-CoV-2 (event) Not sure [facility] Medical Equipment Procedure Code Equipment Code Equipment Origin al Text Equipment Identifier Dates Hip Hd Option Bl x [facility] 32mm - Sna - [id number], [id number] [facility] Start: 05-27-2022 Clinical Notes 04-30-2020 to 06-01-2022 [...] authenticated by: FER JUAREZ Date: 2022-06-01 12:03 [facility] 05-27-2022 History of Present illness Narrative Met [...] She is waiting to void. [facility] Evaluation PT Discharge Recommendations: Home [...] of internal left hip prosthesis, initial encounter ([facility]) Past Medical History: Diagnosis Date Adverse effect [...] of Steps 1 Prior Function Level of Assumption Independent with mobility and functional transfers Bed [...] 05/27/2022 98 IMAGING documented in this encounter [facility] 05-27-2022 Hospital course Narrative -use over the counter stool softeners to prevent constipation -Call your pharmacy prior to discharge to make sure your prescriptions are ready for pickup Please follow surgeon's discharge instructions and prescription directions. Surgeon' discharge instructions are in patient's folder- FOLLOW SURGEON INSTRUCTION SHEETS Contact Surgeon's office with any questions/concerns [phone] -Plasma Flow SCD'S Compression leg pumps on [...] or concerns. Verify Office location when scheduling. [email or web address] [phone] Pre-Surgery Instructions: Medication Instructions alendronate (FOSAMAX) 70 [...] prior to your surgery. Check in at library manager desk [address] [facility], [place] [address]. If Outpatient, these additional instructions apply: An adult must stay with you the whole time you are here and drive you home. An adult must stay with you at home for 24 hours due to Anesthesia. If you have JESUS, you are required to stay 3 hours after your surgery before we can discharge you. documented in this encounter [facility] 05-27-[address] Pemberton, Dr. Durham, [place] Nurse all aware of this patients skin tear on the right ankle (caused when patient was putting on her socks) assessed, documented and wound dressing applied. [facility] 05-27-[address] Pemberton, Dr. Durham, [place] Nurse all aware of this patients skin tear on the right ankle (caused when patient was putting on her socks) assessed, documented and wound dressing applied. documented in this encounter [facility] 05-27-2022 History and physical note History and Physical Update ( H&P completed within the previous thirty days ) I personally reviewed the History and Physical, interviewed and examined the patient prior to surgery. No changes have occurred in the patient's condition since the History and Physical was completed. [employer] Work Phone: 05-27-2022 History and physical note History and Physical Update ( H&P completed within the previous thirty days ) I personally reviewed the History and Physical, interviewed and examined the patient prior to surgery. No changes have occurred in the patient's condition since the History and Physical was completed. documented in this encounter [facility] [employer] 03-31-2022 Note PROCEDURE: XR HIP LT 2 [...] by: FER JUAREZ Date: 2022-03-31 06:56 [facility] 07-29-2021 History of Present illness Narrative [...] them back PRN. documented in this encounter [facility] 04-30-2020 Note Chief Complaint referral for positive [...] 04/30/2020 Family History Family history is negative [facility] Comment on above: Result Comment: Elec tronically Signed By: VALERIE DINERO, Ajith Rowe\Date and Time Signed: 04/30/20 15:38 EST Evaluation note Diagnosis Rhytides- Primary Other specified hypertrophic and atrophic condition of skin Atrophic skin Other specified hypertrophic and atrophic condition of skin [facility] Other mechanical complication of internal left hip prosthesis, initial encounter ([facility])- Primary [facility] Pain Generalized pain [facility] Attachments The following attachments cannot be sent through Care Everywhere. * DVT (Deep Vein Thrombosis): Prevention: General Info (Tongan) * Incentive Spirometer: General Info (Tongan) * Fall Prevention (Tongan) * Opioids: General Info (Tongan) * Constipation (Tongan) * Antibiotics: General Info (Tongan) [facility] N[facility]* Auth/Cert Specialty Diagnoses / Procedures Referred By Dione t Referred To Contact Diagnoses Other mechanical complication of internal left hip prosthesis, initial encounter ([facility]) T84.091A Procedures WY REVISION PRATIK ACETABULAR COMPONENT ONLY W/WO AUTOGRAFT/ALLOGRAFT WY REVISION PRATIK ACETABULAR COMPONENT ONLY W/WO AUTOGRAFT/ALLOGRAFT 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, anterior Saranya Durham MD [address] [place] [address] [facility] [address] [place] [address] Referral ID Status Reason Start Date Expiration Date Visits Re quested Visits Authorized [id number] 1 1 [facility] Summary Purpose Family History No Family History [...] and content) DATE CREATED AUTHOR [facility]/27/2020 [facility] DATE CREATED AUTHOR AUTHOR'S ORGANIZ ATION 11/30/2021 [facility] DATE CREATED AUTHOR AUTHOR'S ORGANIZ ATION 08/02/2022 [facility] DATE CREATED AUTHOR AUTHOR'S ORGANIZ ATION 08/07/2022 [facility] DATE CREATED AUTHOR AUTHOR'S ORGANIZ ATION 10/21/2022 [facility] DATE CREATED AUTHOR AUTHOR'S ORGANIZ ATION 05/11/2023 [facility] EPIC Reason for Visit (unrecogniz ed section and content) Reason Comments [employer] Care Teams (unrecognized sec tion and content) Biological Inspector Relationship Specialty Start Date End Date Dorcas Hernandez MD [address] [place] [address] PCP - General Family Medicine 03/10/21 Biological Inspector Relationship Specialty Start Date End Date Dorcas Hernandez MD [address] [place] [address] PCP - General Family Medicine 05/18/22 Biological Inspector Relationship Specialty Start Date End Date Dorcas Hernandez MD [address] [place] [address] PCP - General Family Medicine 05/18/22 Ordered [...] BE BASED ON THE PRIMARY CLINICAL RECORDS. [employer] [facility]. provides no warranty or guarantee of the accuracy or completeness of information in this document.
== END 2023-06-07 08:47 | disposition home or self-care (01) ==
LOC: RAD 08:46
PROVIDERS: PCP Family Medicine; Visit Provider Family Medicine
DX: M85.80 Other specified disorders of bone density and structure, unspecified site (principal); M81.0 Age-related osteoporosis without current pathological fracture
CPT/HCPCS: 77080

== ENCOUNTER 2023-08-10 07:24 | Outpatient (RCR) | payer MEDICARE, SELFPAY ==
[2023-08-10] MEDS: DENOSUMAB 60 MG/ML SYRINGE SUBQ (08:23)
[2023-08-10 08:29] VITALS: BP 160/92; PULSE 84; TEMP 36.4; O2SAT 95
--- NOTE | 2023-08-10 08:30 | PC.NURSE ---
0750: Pt. to [facility] amb. Seated in recliner. VSS. Questions addressed regarding Prolia. 0823: Pt. medicated with Prolia SQ to RUE. Trace bleeding to site, bandaid applied. Pt. tolerates without c/o. Remains in recliner for brief observation.
--- NOTE | 2023-08-10 08:41 | PC.NURSE ---
0840: Pt without c/o. No new bleeding to injection site. D/c'd amb. to home.
[2023-08-10 08:42] LABS: Calcium 10.2 mg/dL (8.5-10.1); Estimated GFR (African America 55 (>=60); Estimated GFR (Non-African Ame 46 (>=60)
== END 2023-08-30 12:27 | disposition home or self-care (01) ==
LOC: LAB 07:24
PROVIDERS: PCP Family Medicine; Visit Provider Family Medicine
DX: M81.0 Age-related osteoporosis without current pathological fracture (principal)
CPT/HCPCS: 36415; 82310; 82565; 96372; J0897

== ENCOUNTER 2023-08-10 07:24 | Outpatient (OUT) | payer MEDICARE, SELFPAY ==
--- OUTSIDE RECORDS SUMMARY | 2023-08-10 07:28 | XMS_ITS | CCD ---
Author Organization [facility] Care Team Providers Care Adjunct Teacher Name Role Phone Dorcas Hernandez MD Primary Care Provider [phone] DORCAS HERNANDEZ Referring Unavailable DORCAS HERNANDEZ Primary Care Unavailable GERI CHONG Attending Unavailable GERI CHONG Admitting Unavailable DORCAS HERNANDEZ Primary Care Unavailable DORCAS HERNANDEZ Referring Unavailable SELF, REFERRED Attending Unavailable SELF, REFERRED Admitting Unavailable Dorcas Hernandez MD Primary Care Provider [phone] SARANYA DURHAM Admitting Unavailable SARANYA DURHAM Attending Unavailable DORCAS HERNANDEZ Primary Care Unavailable [facility] Consulting Unavailable SARANYA DURHAM Referring Unavailable DORCAS HERNANDEZ Primary Care Unavailable TIMOTHY ., DR TOSCANO Attending Unavailable HOY ., DR TOSCANO Admitting Unavailable HOY ., DR TOSCANO Primary Care Unavailable HOY ., DR TOSCANO Consulting Unavailable ZIEBER, DR FER Cameron Consulting Unavailable DICKERSON, DR SARANYA Massey Consulting Unavailable AHMED, DR GALEANA Admitting Unavailable HOY ., DR TOSCANO Primary Care Unavailable AHMED, DR GALEANA Attending Unavailable AHMED, DR GALEANA Consulting Unavailable HOY ., DR TOSCANO Admitting Unavailable HOY ., DR TOSCANO Attending Unavailable HOY ., DR TOSCANO Primary Care Unavailable HOY ., DR TOSCANO Consulting Unavailable ELTAFRANCISCO, DR KENNEY Consulting Unavailable TIMOTHY ., DR TOSCANO Primary Care Unavailable ELTAHAWMarlene, DR KENNEY Attending Unavailable ELALICE, DR KENNEY Admitting Unavailable ELA MELTON Admitting Unavailable ELA MELTON Consulting Unavailable ELA MELTON Attending Unavailable TIMOTHY ., DR TOSCANO Primary Care Unavailable HOY ., DR TOSCANO Admitting Unavailable HOY ., DR TOSCANO Attending Unavailable HOY ., DR TOSCANO Primary Care Unavailable HOY ., DR TOSCANO Consulting Unavailable HOY ., DR TOSCANO Admitting Unavailable HOY ., DR TOSCANO Attending Unavailable HOY ., DR TOSCANO Referring Unavailable HOY ., DR TOSCANO Primary Care Unavailable HOY ., DR TOSCANO Consulting Unavailable WEST, DR SARANYA Massey Consulting Unavailable HOY ., [...] REINECK, DR NIKUNJ Díaz Attending Unavailabl e ZIEBMINO, DR FER Cameron Consulting Unavailable NIKHIL GIORDANO [...] hour 100 mL/hr, intravenous, Continuous, Starting on Tue05/27/22 at 1500 Start: 05-27-2022 End: 05-27-2022 lactated [...] needed promethazine (PHENERGAN) suppository 25 mg sennosides, retirement 8.6 mg oral tablet (1 source) Start: [...] (1 source) Patient encounter status; Translations: [Other chcf (current) drug therapy] Onset: 04-05-2017 03-05-2021 Episodic [...] Report on 10-20-2022 Plastic Surgery Visit Report [facility] [address], [address] [place] [address] OFFICE VISIT Date of Service: 10/20/22 MR#: [id number] Acct: [id number] Name: ANASTASIA PONCE Rep #: [id number] : 1945 Provider: Dr. Gertrudis grimaldo MD Age/Sex: 76/F Location: [facility] Status: Signed Intake Vital Signs 10/20/22 13:35 Height 5 ft 4 in Weight: 140 lb 6 oz BMI 24.0 Body Surface Area 1.68 BP 157/75 H Blood Pressure Location Rt brachial Position Sitting Respiration 16 Pulse 85 Pulse Source Monitor Temp 97.4 F L Temp Source Temporal Pulse Oximetry (%) 97 Oxygen Delivery Method room air Intake Visit Reasons: CONSULT-LIPOSUCTION Chips Screen Tender Required: No Accompanied by: None Is patient [...] 10/20/22 [History Confirmed 10/20/22] Post menopausal: Yes [facility] Medical History (Updated 10/20/22 @ 15:08 by [...] 06-01-2022 BASO # 0.0 103/ul Normal 0.0-0.1 [facility] Comment on above: Performed By: #### F T3, TSH, T4 #### [facility] [address] [place] [address] Dr. Abelardo Barrett Basophils/100 WBC (Bld) 0.4 % Normal 0.2-2.0 [facility] Comment on above: Performed By: #### F T3, TSH, T4 #### [facility] [address] [place] [address] Dr. Abelardo Barrett EO # 0.1 103/ul Normal 0.0-0.7 [facility] Comment on above: Performed By: #### F T3, TSH, T4 #### [facility] [address] [place] [address] Dr. Abelardo Barrett Eosinophils/100 WBC (Bld) 2.3 % Normal 0.9-7.0 [facility] Comment on above: Performed By: #### F T3, TSH, T4 #### [facility] [address] [place] [address] Dr. Abelardo Barrett Erythrocyte distribution width (RBC) [Ratio] 13.1 % Normal 11.0-15.0 [facility] Comment on above: Performed By: #### F T3, TSH, T4 #### [facility] [address] [place] [address] Dr. Abelardo Barrett Hematocrit (Bld) [Volume fraction] 23.4 % Critically low 36.0-48.0 [facility] Comment on above: Performed By: #### F T3, TSH, T4 #### [facility] [address] [place] [address] Dr. Abelardo Barrett Hemoglobin (Bld) [Mass/Vol] 7.7 g/dL Critically low 12.0-16.0 [facility] Comment on above: Performed By: #### F T3, TSH, T4 #### [facility] [address] [place] [address] Dr. Abelardo Barrett IG # 0.02 10e3/ul Normal 0.00-0.03 [facility] Comment on above: Performed By: #### F T3, TSH, T4 #### [facility] [address] [place] [address] Dr. Abelardo Barrett IG % 0.4 % Normal 0.0-0.5 [facility] Comment on above: Performed By: #### F T3, TSH, T4 #### [facility] [address] [place] [address] Dr. Abelardo Barrett LYMPH # 0.9 103/ul Critically low 1.2-3.8 [facility] Comment on above: Performed By: #### F T3, TSH, T4 #### [facility] [address] [place] [address] Dr. Abelardo Barrett Lymphocytes/100 WBC (Bld) 16.5 % Critically low 20.5-60.0 [facility] Comment on above: Performed By: #### F T3, TSH, T4 #### [facility] [address] [place] [address] Dr. Abelardo Barrett MANUAL DIFF REQ NO Normal [facility] Comment on above: Performed By: #### F T3, TSH, T4 #### [facility] [address] [place] [address] Dr. Abelardo Barrett MCH (RBC) [Entitic mass] 30.8 pg Normal 26.7-34.0 [facility] Comment on above: Performed By: #### F T3, TSH, T4 #### [facility] [address] [place] [address] Dr. Abelardo Barrett MCHC (RBC) [Mass/Vol] 32.9 g/dL Normal 29.9-35.2 [facility] Comment on above: Performed By: #### F T3, TSH, T4 #### [facility] [address] [address] [address] Abelardo Barrett MCV (RBC) [Entitic vol] 93.6 fL Normal 81.0-99.0 [facility] Comment on above: Performed By: #### F T3, TSH, T4 #### [facility] [address] [address] [address] Abelardo Barrett MONO # 1.0 103/ul Critically high 0.3-0.[address] [facility] Comment on above: Performed By: #### F T3, TSH, T4 #### [facility] [address] [address] [address] Abelardo Barrett Monocytes/100 WBC (Bld) 17.1 % Critically high 1.7-12.0 [facility] Comment on above: Performed By: #### F T3, TSH, T4 #### [facility] [address] [place] [address] Dr. Abelardo Barrett NEUT # 3.5 103/ul Normal 1.4-6.5 [facility] Comment on above: Performed By: #### F T3, TSH, T4 #### [facility] [address] [address] [address] Abelardo Barrett Neutrophils/100 WBC (Bld) 63.3 % Normal 43.0-75.0 [facility] Comment on above: Performed By: #### F T3, TSH, T4 #### [facility] [address] [address] [address] Abelardo Barrett Platelet mean volume (Bld) [Entitic vol] 8.8 fL Critically low 9.5-13.5 [facility] Comment on above: Performed By: #### F T3, TSH, T4 #### [facility] [address] [place] [address] Dr. Abelardo Barrett PLT 255 103/ul Normal 150-450 [facility] Comment on above: Performed By: #### F T3, TSH, T4 #### [facility] [address] [address] [address] Abelardo Barrett RBC 2.50 106/ul Critically low 4.20-5.[address] [facility] Comment on above: Performed By: #### F T3, TSH, T4 #### [facility] [address] [address] [address] Abelardo Barrett WBC 5.6 103/ul Normal 4.0-11.0 [facility] Comment on above: Performed By: #### F T3, TSH, T4 #### [facility] [address] [address] [address] Abelardo Barrett ER URINE PROFILEon 3 Bilirubin Ql (U) Negative Normal NEGATIVE [facility] Comment on above: Performed By: #### F T3, TSH, T4 #### [facility] [address] [address] [address] Abelardo Barrett Clarity (U) CLEAR Normal CLEAR [facility] Comment on above: Performed By: #### F T3, TSH, T4 #### [facility] [address] [address] [address] Abelardo Barrett Color (U) LT. YELLOW Normal YELLOW [facility] Comment on above: Performed By: #### F T3, TSH, T4 #### [facility] [address] [address] [address] Abelardo Barrett ERUDENNISD A micrscopic examina tion will be performed if indicated. Normal [facility] Comment on above: Performed By: #### F T3, TSH, T4 #### [facility] [address] [address] [address] Abelardo Barrett Glucose Ql (U) Negative Normal NEGATIVE [facility] Comment on above: Performed By: #### F T3, TSH, T4 #### [facility] [address] [address] [address] Abelardo Barrett Hemoglobin Ql (U) Negative Normal NEGATIVE [facility] Comment on above: Performed By: #### F T3, TSH, T4 #### [facility] [address] [address] [address] Abelardo Barrett Ketones Ql (U) Negative Normal NEGATIVE [facility] Comment on above: Performed By: #### F T3, TSH, T4 #### [facility] [address] [place] [address] Dr. Abelardo Barrett LEUKOCYTES TRACE Abnormal NEGATIVE [facility] Comment on above: Performed By: #### F T3, TSH, T4 #### [facility] [address] [place] [address] Dr. Abelardo Barrett Nitrite Ql (U) Negative Normal NEGATIVE [facility] Comment on above: Performed By: #### F T3, TSH, T4 #### [facility] [address] [place] [address] Dr. Abelardo Barrett pH (U) 6.5 [pH] Normal 5-9 [facility] Comment on above: Performed By: #### F T3, TSH, T4 #### [facility] [address] [place] [address] Dr. Abelardo Barrett SPEC GRAVITY <=1.005 Abnormal 1.005-<=1.02 5 [facility] Comment on above: Performed By: #### F T3, TSH, T4 #### [facility] [address] [place] [address] Dr. Abelardo Barrett UA PROTEIN Negative Normal NEGATIVE/ TRACE [facility] Comment on above: Performed By: #### F T3, TSH, T4 #### [facility] [address] [place] [address] Dr. Abelardo Barrett UR MICRO IND INDICATED Normal [facility] Comment on above: Performed By: #### F T3, TSH, T4 #### [facility] [address] [place] [address] Dr. Abelardo Barrett Urobilinogen Qn (U) 0.2 {Erik'U}/dL Normal 0.2 - 1. 0 [facility] Comment on above: Performed By: #### F T3, TSH, T4 #### [facility] [address] [place] [address] Dr. Abelardo Barrett PROF 14(COMP METB)on 023 Albumin [Mass/Vol] 2.2 g/dL Critically low 3.4-5.0 [facility] Comment on above: Performed By: #### F T3, TSH, T4 #### [facility] [address] [address] [address] Abelardo Barrett Albumin/Globulin [Mass ratio] 0.6 {ratio} Normal [facility] Comment on above: Performed By: #### F T3, TSH, T4 #### [facility] [address] [address] [address] Abelardo Barrett ALP [Catalytic activity/Vol] 49 U/L Normal 46-116 [facility] Comment on above: Performed By: #### F T3, TSH, T4 #### [facility] [address] [address] [address] Abelardo Barrett ALT [Catalytic activity/Vol] 36 U/L Normal 14-59 [facility] Comment on above: Performed By: #### F T3, TSH, T4 #### [facility] [address] [place] [address] Dr. Aeblardo Barrett Anion gap [Moles/Vol] 12.2 mmol/L Normal [facility] Comment on above: Performed By: #### F T3, TSH, T4 #### [facility] [address] [address] [address] Abelardo Barrett AST [Catalytic activity/Vol] 43 U/L Critically high 15-37 [facility] Comment on above: Performed By: #### F T3, TSH, T4 #### [facility] [address] [place] [address] Dr. Abelardo Barrett Bilirubin [Mass/Vol] 0.7 mg/dL Normal 0.2-1.0 [facility] Comment on above: Performed By: #### F T3, TSH, T4 #### [facility] [address] [address] [address] Abelardo Barrett Calcium [Mass/Vol] 11.0 mg/dL Critically high 8.5-10.1 T [facility] Comment on above: Performed By: #### F T3, TSH, T4 #### [facility] [address] [address] [address] Abelardo Barrett Chloride [Moles/Vol] 98 mmol/L Normal 98-107 [facility] Comment on above: Performed By: #### F T3, TSH, T4 #### [facility] [address] [address] [address] Abelardo Barrett CO2 [Moles/Vol] 31.7 mmol/L Normal 21.0-32.0 [facility] Comment on above: Performed By: #### F T3, TSH, T4 #### [facility] [address] [address] [address] Abelardo Barrett Creatinine [Mass/Vol] 1.17 mg/dL Critically high 0.55-1.02 [facility] Comment on above: Performed By: #### F T3, TSH, T4 #### [facility] [address] [address] [address] Abelardo Barrett EGFR-AF MOLDOVAN 55 mL/min/1.73m2 Critically low >=60 [facility] Comment on above: Performed By: #### F T3, TSH, T4 #### [facility] [address] [address] [address] Abelardo Barrett EGFR-NON AF MOLDOVAN 45 mL/min/1.73m2 Critically low >=60 [facility] Comment on above: Performed By: #### F T3, TSH, T4 #### [facility] [address] [address] [address] Abelardo Barrett Globulin (S) [Mass/Vol] 3.4 g/dL Normal [facility] Comment on above: Performed By: #### F T3, TSH, T4 #### [facility] [address] [address] [address] Abelardo Barrett Glucose [Mass/Vol] 107 mg/dL Critically high 74-106 [facility] Comment on above: Performed By: #### F T3, TSH, T4 #### [facility] [address] [address] [address] Abelardo Barrett Potassium [Moles/Vol] 4.9 mmol/L Normal 3.5-5.1 [facility] Comment on above: Performed By: #### F T3, TSH, T4 #### [facility] [address] [address] [address] Abelardo Barrett Protein [Mass/Vol] 5.6 g/dL Critically low 6.4-8.2 Th e [facility] Comment on above: Performed By: #### F T3, TSH, T4 #### [facility] [address] [address] [address] Abelardo Barrett Sodium [Moles/Vol] 137 mmol/L Normal 136-145 [facility] Comment on above: Performed By: #### F T3, TSH, T4 #### [facility] [address] [address] [address] Abelardo Barrett Urea nitrogen [Mass/Vol] 27.0 mg/dL Critically high 7.0-18.0 [facility] Comment on above: Performed By: #### F T3, TSH, T4 #### [facility] [address] [place] [address] Dr. Abelardo Barrett Urea nitrogen/Creatinine [Mass ratio] 23.1 mg/mg Normal [facility] Comment on above: Performed By: #### F T3, TSH, T4 #### [facility] [address] [place] [address] Dr. Abelardo Barrett URINE MICROSCOPIC ONLYon BACTERIA TRACE Abnormal NONE SEEN [facility] Comment on above: Performed By: #### F T3, TSH, T4 #### [facility] [address] [place] [address] Dr. Abelardo Barrett Bacteria identified Cx Nom (U) NOT INDICATED Normal [facility] Comment on above: Performed By: #### F T3, TSH, T4 #### [facility] [address] [place] [address] Dr. Abelardo Barrett CAST NONE SEEN Normal NONE SEEN [facility] Comment on above: Performed By: #### F T3, TSH, T4 #### [facility] [address] [place] [address] Dr. Abelardo Barrett Crystals LM Nom (Urine sed) NONE SEEN Normal NONE SEEN [facility] Comment on above: Performed By: #### F T3, TSH, T4 #### [facility] [address] [place] [address] Dr. Abelardo Barrett Epithelial cells LM Ql (Urine sed) RARE Normal NONE SEEN /RARE [facility] Comment on above: Performed By: #### F T3, TSH, T4 #### [facility] [address] [place], [place] [address] Dr. Abelardo Barrett MUCOUS NONE SEEN Normal NONE SEEN [facility] Comment on above: Performed By: #### F T3, TSH, T4 #### [facility] [address] [place], [place] [address] Dr. Abelardo Barrett RBC 0-2 Normal 0-2 [facility] Comment on above: Performed By: #### F T3, TSH, T4 #### [facility] [address] [place], [place] [address] Dr. Abelardo Barrett WBC 0-2 Abnormal NONE SEEN [facility] Comment on above: Performed By: #### F T3, TSH, T4 #### [facility] [address] [address] [address] Abelardo Barrett Bacteria Spec Anaerobe Culto n 05-27-2022 Bacteria identified Anaer cx Nom (Unsp spec) Culture, Anaerobic Status = F No anaerobes grown after 4 days. Normal [facility] Comment on above: Performed By: #### 1 988-5 #### [facility] [address] [place] [address] Bacteria identified Anaer cx Nom (Unsp spec) Culture, Anaerobic Status = F No anaerobes grown after 4 days. Normal [facility] Comment on above: Performed By: #### 1 988-5 #### [facility] [address] [place] [address] Bacteria Tiss Culton 023 Bacteria identified Cx [...] to a previously preliminary verified report. Normal [facility] Comment on above: Performed By: #### 1 988-5 #### [facility] [address] [place] [address] Bacteria identified Cx Nom (Tiss) Culture, Tissue [...] to a previously preliminary verified report. Normal [facility] Comment on above: Performed By: #### 1 988-5 #### [facility] [address] [place] [address] Blood type and Indirect anti body screen panel (Bld)on 05-27-2022 ABO group Nom (Bld) O Normal [facility] Comment on above: Performed By: #### 3 4532-2 #### [facility] [address] [place] [address] Rh Type Negative Normal [facility] Comment on above: Performed By: #### 3 4532-2 #### [facility] [address] [place] [address] ABO group Nom (Bld) O [facility] Blood group antibody screen Ql Negative [facility] Rh Nom (Bld) Negative [facility] Fungus Skin Culton 3 Fungus identified Cx Nom (Skin) Culture, Fungus Status = F No growth at 4 weeks Normal [facility] Comment on above: Performed By: #### 3 4532-2 #### [facility] [address] [place] [address] Fungus identified Cx Nom (Skin) Culture, Fungus Status = F No growth at 4 weeks Normal [facility] Comment on above: Performed By: #### 1 988-5 #### [facility] [address] [place] [address] Glucose Auto test strip (Bld ) [Mass/Vol]on 05-27-2022 Glucose [Mass/Vol] 98 mg/dL Normal 70-99 [facility] Comment on above: Performed By: #### 2 340-8 #### [facility] [address] [place] [address] Glucose [Mass/Vol] 98 mg/dL 70 - 99 mg/dL [facility] Interpretation and review of laboratory results Normal [facility] Mycobacterium Spec Culton Mycobacterium sp identified Org specific cx Nom (Unsp spec) Culture AFB Status = C No growth at 8 weeks AFB Stain Status = F No acid fast bacilli seen Normal [facility] Comment on above: Performed By: #### 1 988-5 #### [facility] [address] [place] [address] Mycobacterium sp identified Org specific cx Nom (Unsp spec) Culture AFB Status = C No growth at 8 weeks AFB Stain Status = F No acid fast bacilli seen Normal [facility] Comment on above: Performed By: #### 5 43-9 #### [facility] [address] [place] [address] Performed By: #### 1 988-5 #### [facility] [address] [place] [address] Pathology studyon 05-27-2022 Pathology study Left hip [...] interpretation of this case was performed at [facility]. These tests have not been [...] was performed at [facility], [address] [place] [address]. Microscopic examination was performed. Normal [facility] Comment on above: Performed By: #### 1 1526-1 #### [facility] ([facility]) [facility] [address] [place] [address] [facility] [address] [place] [address] SARS-CoV-2 (COVID-19) RNA NA A+probe Ql (Resp)on 05-27-2022 Interpretation and review of laboratory results Normal [facility] SARS-CoV-2 (COVID-19) RdRp gene STEVE+probe Ql (Resp) Not detected Not Detected [facility] SARS-CoV-2 RNA Resp Ql STEVE+p robeon 05-27-2022 SARS-CoV-2 (COVID-19) RNA STEVE+probe Ql (Resp) Not detected Normal Not Detected [facility] Comment on above: Performed By: #### 9 4500-6 #### [facility] [address] [facility] [place] [address] XR FLUORO UP TO 1 HOUR (STAT ISTICS)(NO REPORT)on 05-27-2022 XR FLUORO UP TO 1 HOUR (STATISTICS)(NO REPORT) This order has been auto-finalized and does not contain a result. Normal [facility] XR Fluoro Up To 1 Hour (Stat [...] Self Edit Transcribed Date: 05/27/2022 14:17 Normal [facility] XR Pelvis 1-2 Viewson 2022 No acute [...] By: Self Edit Transcribed Date: 05/27/2022 14:17 [facility] Radiology Study observation (narrative) [facility] XR Pelvis 1-2 ViewsOrdered B y: Miguelangel Martinez on 05-27-2022 [facility] [employer] Work Phone: Blood type and Indirect anti body screen panel (Bld)on 05-17-2022 ABO group Nom (Bld) O Normal [facility] Comment on above: Performed By: #### 3 4532-2 #### [facility] [facility] [address] [place] [address] Rh Type Negative Normal [facility] Comment on above: Performed By: #### 3 4532-2 #### [facility] [address] [place] [address] CRP [Mass/Vol]on 05-17-2022 Anion gap [Moles/Vol] 11 mmol/L Normal 6-18 [facility] Comment on above: Order Comment: Sampl e received unlabeled or with name discrepancy. The Physician, Clinican or authorized designee has authorized the release of the results and assumes responsibility for sample identification. Performed By: #### 1 988-5 #### [facility] [address] [place] [address] Calcium [Mass/Vol] 10.9 mg/dL High 8.9-10.3 [facility] Comment on above: Order Comment: Sampl e received unlabeled or with name discrepancy. The Physician, Clinican or authorized designee has authorized the release of the results and assumes responsibility for sample identification. Performed By: #### 1 988-5 #### [facility] [address] [place] [address] Chloride [Moles/Vol] 102 mmol/L Normal 98-107 [facility] Comment on above: Order Comment: Sampl e received unlabeled or with name discrepancy. The Physician, Clinican or authorized designee has authorized the release of the results and assumes responsibility for sample identification. Performed By: #### 1 988-5 #### [facility] [address] [place] [address] CO2 [Moles/Vol] 27 mmol/L Normal 22-32 [facility] Comment on above: Order Comment: Sampl e received unlabeled or with name discrepancy. The Physician, Clinican or authorized designee has authorized the release of the results and assumes responsibility for sample identification. Performed By: #### 1 988-5 #### [facility] [address] [place] [address] Creatinine [Mass/Vol] 0.92 mg/dL Normal 0.60-1.30 [facility] Comment on above: Order Comment: Sampl e received unlabeled or with name discrepancy. The Physician, Clinican or authorized designee has authorized the release of the results and assumes responsibility for sample identification. Performed By: #### 1 988-5 #### [facility] [address] [place] [address] GFR/1.73 sq M.predicted among non-blacks MDRD (S/P/Bld) [Vol rate/Area] 65 mL/min/{1.73_m2} Normal >=60 [facility] Comment on above: Order Comment: Sampl e received unlabeled or with name discrepancy. The Physician, Clinican or authorized designee has authorized the release of the results and assumes responsibility for sample identification. Result Comment: Effe ctive February 07, 2022, calculation based on the?Chronic Kidney Disease Epidemiology Collaboration (CKD-EPI) equation refit?without adjustment for race. Performed By: #### 1 988-5 #### [facility] [address] [place] [address] Glucose [Mass/Vol] 86 mg/dL Normal 70-99 [facility] Comment on above: Order Comment: Sampl e received unlabeled or with name discrepancy. The Physician, Clinican or authorized designee has authorized the release of the results and assumes responsibility for sample identification. Performed By: #### 1 988-5 #### [facility] [address] [place] [address] Potassium [Moles/Vol] 4.6 mmol/L Normal 3.6-5.1 [facility] Comment on above: Order Comment: Sampl e received unlabeled or with name discrepancy. The Physician, Clinican or authorized designee has authorized the release of the results and assumes responsibility for sample identification. Performed By: #### 1 988-5 #### [facility] [address] [place] [address] Sodium [Moles/Vol] 140 mmol/L Normal 136-145 [facility] Comment on above: Order Comment: Sampl e received unlabeled or with name discrepancy. The Physician, Clinican or authorized designee has authorized the release of the results and assumes responsibility for sample identification. Performed By: #### 1 988-5 #### [facility] [address] [place] [address] Urea nitrogen [Mass/Vol] 36 mg/dL High 8-20 [facility] Comment on above: Order Comment: Sampl e received unlabeled or with name discrepancy. The Physician, Clinican or authorized designee has authorized the release of the results and assumes responsibility for sample identification. Performed By: #### 1 988-5 #### [facility] [address] [place] [address] Urea nitrogen/Creatinine [Mass ratio] 39.1 mg/mg High 12.0-20.0 [facility] Comment on above: Order Comment: Sampl e received unlabeled or with name discrepancy. The Physician, Clinican or authorized designee has authorized the release of the results and assumes responsibility for sample identification. Performed By: #### 1 988-5 #### [facility] [address] [place] [address] Hemogram and platelets WO di fferential panel (Bld)on 05-17-2022 Sed Rate 18 mm/hr Normal 0-20 [facility] Comment on above: Performed By: #### 2 4317-0 #### [facility] [address] [place] [address] MG MAMM SCREEN 3D YONI CADon 04-07-2022 MG MAMM SCREEN 3D YONI CAD Patient: ANASTASIA PONCE Exam Date: 04/07/2022 : 1945 Gender:F Ordering : DR KERVIN OSORIO Admission #: [id number] Family : DR DORCAS HERNANDEZ . Order #: [id number] CLICK HERE TO VIEW EXAM RADIOLOGY REPORT [...] Treatments None Family Cancers None LOCATION: [facility] BREAST COMPOSITION: Heterogeneously dense,which may obscure small [...] MD on 04/07/2022 at 11:00 Normal [facility] CBC AUTO DIFFon 03-30-2022 BASO # 0.0 103/ul Normal 0.0-0.1 [facility] Comment on above: Performed By: #### F T3, TSH, T4 #### [facility] [address] [address] [address] Yilan Barrett Basophils/100 WBC (Bld) 0.9 % Normal 0.2-2.0 [facility] Comment on above: Performed By: #### F T3, TSH, T4 #### [facility] [address] [place] [address] Dr. Abelardo Barrett EO # 0.1 103/ul Normal 0.0-0.7 [facility] Comment on above: Performed By: #### F T3, TSH, T4 #### [facility] [address] [place] [address] Dr. Abelardo Barrett Eosinophils/100 WBC (Bld) 2.0 % Normal 0.9-7.0 [facility] Comment on above: Performed By: #### F T3, TSH, T4 #### [facility] [address] [place] [address] Dr. Abelardo Barrett Erythrocyte distribution width (RBC) [Ratio] 12.5 % Normal 11.0-15.0 [facility] Comment on above: Performed By: #### F T3, TSH, T4 #### [facility] [address] [place] [address] Dr. Abelardo Barrett Hematocrit (Bld) [Volume fraction] 37.9 % Normal 36.0-48.0 [facility] Comment on above: Performed By: #### F T3, TSH, T4 #### [facility] [address] [place] [address] Dr. Abelardo Barrett Hemoglobin (Bld) [Mass/Vol] 12.6 g/dL Normal 12.0-16.0 [facility] Comment on above: Performed By: #### F T3, TSH, T4 #### [facility] [address] [place] [address] Dr. Abelardo Barrett IG # 0.01 10e3/ul Normal 0.00-0.03 [facility] Comment on above: Performed By: #### F T3, TSH, T4 #### [facility] [address] [place] [address] Dr. Abelardo Barrett IG % 0.2 % Normal 0.0-0.5 [facility] Comment on above: Performed By: #### F T3, TSH, T4 #### [facility] [address] [place] [address] Dr. Abelardo Barrett LYMPH # 1.2 103/ul Normal 1.2-3.8 [facility] Comment on above: Performed By: #### F T3, TSH, T4 #### [facility] [address] [place] [address] Dr. Abelardo Barrett Lymphocytes/100 WBC (Bld) 26.5 % Normal 20.5-60.0 [facility] Comment on above: Performed By: #### F T3, TSH, T4 #### [facility] [address] [place] [address] Dr. Abelardo Barrett MANUAL DIFF REQ NO Normal [facility] Comment on above: Performed By: #### F T3, TSH, T4 #### [facility] [address] [place] [address] Dr. Abelardo Barrett MCH (RBC) [Entitic mass] 29.9 pg Normal 26.7-34.0 [facility] Comment on above: Performed By: #### F T3, TSH, T4 #### [facility] [address] [place] [address] Dr. Abelardo Barrett MCHC (RBC) [Mass/Vol] 33.2 g/dL Normal 29.9-35.2 [facility] Comment on above: Performed By: #### F T3, TSH, T4 #### [facility] [address] [place] [address] Dr. Abelardo Barrett MCV (RBC) [Entitic vol] 90.0 fL Normal 81.0-99.0 [facility] Comment on above: Performed By: #### F T3, TSH, T4 #### [facility] [address] [place] [address] Dr. Abelardo Barrett MONO # 0.5 103/ul Normal 0.3-0.8 [facility] Comment on above: Performed By: #### F T3, TSH, T4 #### [facility] [address] [place] [address] Dr. Abelardo Barrett Monocytes/100 WBC (Bld) 10.1 % Normal 1.7-12.0 [facility] Comment on above: Performed By: #### F T3, TSH, T4 #### [facility] [address] [place] [address] Dr. Abelardo Barrett NEUT # 2.8 103/ul Normal 1.4-6.5 [facility] Comment on above: Performed By: #### F T3, TSH, T4 #### [facility] [address] [place] [address] Dr. Abelardo Barrett Neutrophils/100 WBC (Bld) 60.3 % Normal 43.0-75.0 [facility] Comment on above: Performed By: #### F T3, TSH, T4 #### [facility] [address] [place] [address] Dr. Abelardo Barrett Platelet mean volume (Bld) [Entitic vol] 8.6 fL Critically low 9.5-13.5 [facility] Comment on above: Performed By: #### F T3, TSH, T4 #### [facility] [address] [place] [address] Dr. Abelardo Barrett PLT 248 103/ul Normal 150-450 [facility] Comment on above: Performed By: #### F T3, TSH, T4 #### [facility] [address] [place] [address] Dr. Abelardo Barrett RBC 4.21 106/ul Normal 4.20-5.40 [facility] Comment on above: Performed By: #### F T3, TSH, T4 #### [facility] [address] [place] [address] Dr. Abelardo Barrett WBC 4.6 103/ul Normal 4.0-11.0 [facility] Comment on above: Performed By: #### F T3, TSH, T4 #### [facility] [address] [place] [address] Dr. Abelrado Barrett FREE THYROXINE INDEX T7on FTI 2.73 Normal 1.30-4.50 [facility] Comment on above: Performed By: #### C MP, LIPID #### [facility] [address] [place] [address] Dr. Abelardo Barrett T3U 35.0 % Normal 30.0-39.0 [facility] Comment on above: Performed By: #### C MP, LIPID #### [facility] [address] [address] [address] Abelardo Barrett T4 [Mass/Vol] 7.80 ug/dL Normal 4.80-13.90 [facility] Comment on above: Performed By: #### C MP, LIPID #### [facility] [address] [address] [address] Abelardo Barrett GLYCOHEMOGLOBIN A1Con 2021 ADA RECOMMENDATION SEE BELOW Normal [facility] Comment on above: Result Comment: ADA RECOMMENDED LIMIT 4.0 - 6.0 ADA THERAPEUTIC TARGET < 7.0 ACTION SUGGESTED > 7.0 Performed By: #### C MP, LIPID #### [facility] [address] [place] [address] Dr. Abelardo Barrett Glucose [Mass/Vol] 123 mg/dL Normal [facility] Comment on above: Performed By: #### C MP, LIPID #### [facility] [address] [address] [address] Abelardo Barrett HbA1c (Bld) [Mass fraction] 5.9 % Normal 4.5-6.2 [facility] Comment on above: Performed By: #### C MP, LIPID #### [facility] [address] [place] [address] Dr. Abelardo Barrett IRONon 03-30-2022 Iron [Mass/Vol] 94.0 ug/dL Normal 50.0-170.0 [facility] Comment on above: Performed By: #### C MP, LIPID #### [facility] [address] [address] [address] Abelardo Barrett LIPID PROFILEon 03-30-2022 CHOL-HDL RATIO NORM SEE BELOW Normal [facility] Comment on above: Result Comment: 3.3 - 4.4 LOW RISK 4.4 - 7.1 AVERAGE RISK 7.1 - 11.0 MODERATE RISK >11.0 HIGH RISK Performed By: #### C MP, LIPID #### [facility] [address] [address] [address] Abelardo Barrett Cholesterol [Mass/Vol] 186 mg/dL Normal <=200 [facility] Comment on above: Performed By: #### C MP, LIPID #### [facility] [address] [address] [address] Abelardo Barrett Cholesterol in HDL [Mass/Vol] 86 mg/dL Critically high 40-60 [facility] Comment on above: Performed By: #### C MP, LIPID #### [facility] [address] [address] [address] Abelardo Barrett Cholesterol in LDL [Mass/Vol] 88.8 mg/dL Normal [facility] Comment on above: Performed By: #### C MP, LIPID #### [facility] [address] [address] [address] Abelardo Barrett Cholesterol.total/C holesterol in HDL [Mass ratio] 2.2 {ratio} Normal [facility] Comment on above: Performed By: #### C MP, LIPID #### [facility] [address] [address] [address] Abelardo Barrett HDL NORMAL > or = 60 mg/dl - LO W CARDIOVASCULAR RISK <40 mg/dl - HIGH CARDIOVASCULAR RISK Normal [facility] Comment on above: Performed By: #### C MP, LIPID #### [facility] [address] [address] [address] Abelardo Barrett LDL CALC NORMAL SEE BELOW Normal [facility] Comment on above: Result Comment: <100 mg/dl OPTIMAL 100 - 129 mg/dl NEAR OR ABOVE OPTIMAL 130 - 159 mg/dl BORDERLINE HIGH 160 - 189 mg/dl HIGH >190 mg/dl VERY HIGH Performed By: #### C MP, LIPID #### [facility] [address] [address] [address] Abelardo Barrett Triglyceride [Mass/Vol] 56 mg/dL Normal <=150 [facility] Comment on above: Performed By: #### C MP, LIPID #### [facility] [address] [address] [address] Abelardo Barrett VLDL CALC 11.2 mg/dL Normal [facility] Comment on above: Performed By: #### C MP, LIPID #### [facility] [address] [address] [address] Abelardo Barrett PROF 14(COMP METB)on 022 Albumin [Mass/Vol] 3.7 g/dL Normal 3.4-5.0 [facility] Comment on above: Performed By: #### C MP, LIPID #### [facility] [address] [place] [address] Dr. Abelardo Barrett Albumin/Globulin [Mass ratio] 1.0 {ratio} Normal [facility] Comment on above: Performed By: #### C MP, LIPID #### [facility] [address] [place] [address] Dr. Abelardo Barrett ALP [Catalytic activity/Vol] 59 U/L Normal 46-116 [facility] Comment on above: Performed By: #### C MP, LIPID #### [facility] [address] [place] [address] Dr. Abelardo Barrett ALT [Catalytic activity/Vol] 30 U/L Normal 14-59 [facility] Comment on above: Performed By: #### C MP, LIPID #### [facility] [address] [place] [address] Dr. Abelardo Barrett Anion gap [Moles/Vol] 9.0 mmol/L Normal [facility] Comment on above: Performed By: #### C MP, LIPID #### [facility] [address] [place] [address] Dr. Abelardo Barrett AST [Catalytic activity/Vol] 17 U/L Normal 15-37 [facility] Comment on above: Performed By: #### C MP, LIPID #### [facility] [address] [place] [address] Dr. Abelardo Barrett Bilirubin [Mass/Vol] 0.6 mg/dL Normal 0.2-1.0 [facility] Comment on above: Performed By: #### C MP, LIPID #### [facility] [address] [place] [address] Dr. Abelardo Barrett Calcium [Mass/Vol] 9.1 mg/dL Normal 8.5-10.1 [facility] Comment on above: Performed By: #### C MP, LIPID #### [facility] [address] [address] [address] Abelardo Barrett Chloride [Moles/Vol] 104 mmol/L Normal 98-107 [facility] Comment on above: Performed By: #### C MP, LIPID #### [facility] [address] [address] [address] Abelardo Barrett CO2 [Moles/Vol] 30.6 mmol/L Normal 21.0-32.0 [facility] Comment on above: Performed By: #### C MP, LIPID #### [facility] [address] [address] [address] Abelardo Barrett Creatinine [Mass/Vol] 0.85 mg/dL Normal 0.55-1.02 [facility] Comment on above: Performed By: #### C MP, LIPID #### [facility] [address] [address] [address] Abelardo Barrett EGFR-AF MOLDOVAN >60 Normal >=60 [facility] Comment on above: Performed By: #### C MP, LIPID #### [facility] [address] [address] [address] Abelardo Barrett EGFR-NON AF MOLDOVAN >60 Normal >=60 [facility] Comment on above: Performed By: #### C MP, LIPID #### [facility] [address] [address] [address] Abelardo Barrett Globulin (S) [Mass/Vol] 3.6 g/dL Normal [facility] Comment on above: Performed By: #### C MP, LIPID #### [facility] [address] [place] [address] Dr. Abelardo Barrett Glucose [Mass/Vol] 93 mg/dL Normal 74-106 [facility] Comment on above: Performed By: #### C MP, LIPID #### [facility] [address] [address] [address] Abelardo Barrett Potassium [Moles/Vol] 4.6 mmol/L Normal 3.5-5.1 [facility] Comment on above: Performed By: #### C MP, LIPID #### [facility] [address] [address] [address] Abelardo Barrett Protein [Mass/Vol] 7.3 g/dL Normal 6.4-8.2 [facility] Comment on above: Performed By: #### C MP, LIPID #### [facility] [address] [place] [address] Dr. Abelardo Barrett Sodium [Moles/Vol] 139 mmol/L Normal 136-145 [facility] Comment on above: Performed By: #### C MP, LIPID #### [facility] [address] [place] [address] Dr. Abelardo Barrett Urea nitrogen [Mass/Vol] 33.0 mg/dL Critically high 7.0-18.0 [facility] Comment on above: Performed By: #### C MP, LIPID #### [facility] [address] [place] [address] Dr. Abelardo Barrett Urea nitrogen/Creatinine [Mass ratio] 38.8 mg/mg Normal [facility] Comment on above: Performed By: #### C MP, LIPID #### [facility] [address] [place] [address] Dr. Abelardo Barrett TSHon 03-30-2022 TSH Qn m[IU]/L Critically low 0.358-3.740 [facility] Comment on above: Performed By: #### C MP, LIPID #### [facility] [address] [place] [address] Dr. Abelardo Barrett T4 [facility]on 01-16-2022 T4 [Mass/Vol] 8.3 ug/dL Normal 4.5-12.0 [facility] Comment on above: Performed By: #### C MP, LIPID #### [facility] [address] [place] [address] Dr. Abelardo Barrett FREE T3on 01-15-2022 FREE T3 3.34 pg/mlL Normal 2.18-3.98 [facility] Comment on above: Performed By: #### C MP, LIPID #### [facility] [address] [place] [address] Dr. Abelardo Barrett TSHon 01-15-2022 TSH Qn m[IU]/L Critically low 0.358-3.740 [facility] Comment on above: Performed By: #### C MP, LIPID #### [facility] [address] [address] [address] Abelardo Barertt BLOOD GASES BTYon 12-14-2021 02 MODE ROOM AIR Normal [facility] Comment on above: Performed By: #### A BG #### [facility] [address] [address] [address] Abelardo Barrett ALLENS TEST Positive [facility] Comment on above: Performed By: #### A BG #### [facility] [address] [address] [address] Abelardo Barrett Base excess Calc (Bld) [Moles/Vol] 0.7 mmol/L Normal -2.0-2.0 [facility] Comment on above: Performed By: #### A BG #### [facility] [address] [address] [address] Abelardo Barrett BIPAP PRESSURE Normal [facility] Comment on above: Performed By: #### A BG #### [facility] [address] [address] [address] Abelardo Barrett CO2 [Moles/Vol] 51.6 mmol/L Critically high 23.0-28.0 [facility] Comment on above: Performed By: #### A BG #### [facility] [address] [address] [address] Abelardo Barrett CPAP [facility] Comment on above: Performed By: #### A BG #### [facility] [address] [address] [address] Abelardo Barrett FIO2 [facility] Comment on above: Performed By: #### A BG #### [facility] [address] [place] [address] Dr. Abelardo Barrett HCO3 (Bld) [Moles/Vol] 25.0 mmol/L Normal 22.0-26.0 [facility] Comment on above: Performed By: #### A BG #### [facility] [address] [place] [address] Dr. Abelardo Barrett LPM [facility] Comment on above: Performed By: #### A BG #### [facility] [address] [place] [address] Dr. Abelardo Barrett MINUTE VOLUME Normal [facility] Comment on above: Performed By: #### A BG #### [facility] [address] [place] [address] Dr. Abelardo Barrett Oxygen (Bld) [Partial pressure] 83.4 mm[Hg] Normal 80.0-100.0 [facility] Comment on above: Performed By: #### A BG #### [facility] [address] [place] [address] Dr. Abelardo Barrett Oxygen saturation in Blood 97.1 % Normal 95.0-100.0 [facility] Comment on above: Performed By: #### A BG #### [facility] [address] [place] [address] Dr. Abelardo Barrett PCO2 39.3 mmHg Normal 35.0-45.0 [facility] Comment on above: Performed By: #### A BG #### [facility] [address] [place] [address] Dr. Abelardo Barrett PEEP [facility] Comment on above: Performed By: #### A BG #### [facility] [address] [place] [address] Dr. Abelardo Barrett pH (Bld) 7.415 [pH] Normal 7.350-7.450 [facility] Comment on above: Performed By: #### A BG #### [facility] [address] [place] [address] Dr. Abelardo Barrett PIP [facility] Comment on above: Performed By: #### A BG #### [facility] [address] [place] [address] Dr. Abelardo Barrett PS [facility] Comment on above: Performed By: #### A BG #### [facility] [address] [place] [address] Dr. Abelardo Barrett PUNCTURE SITE RR Normal [facility] Comment on above: Performed By: #### A BG #### [facility] [address] [address] [address] Abelardo Barrett RATE [facility] Comment on above: Performed By: #### A BG #### [facility] [address] [place], [place] [address] Dr. Abelardo Barrett VENT MODE [facility] Comment on above: Performed By: #### A BG #### [facility] [address] [address] Abelardo Barrett [place] [facility] Comment on above: Performed By: #### A BG #### [facility] [address] [address] Abelardo Barrett Cardiovascular Lab Reporton 11-19-2021 Cardiovascular Lab Report [facility] Patient Name: [facility] MR #: [id number] Physician: Jian Frank, Department of M.D. Medicine Service Date: 11/19/2021 Division of Birthdate: 1945 Cardiology Room #: Adult Cardiovascular Services [place] [address] Cardiovascular Laboratory Report FINAL IMPRESSIONS: 1. Angiographically nonobstructive coronary arteries. 2. Normal global left ventricular systolic function by noninvasive imaging. RECOMMENDATIONS: 1. Consider alternate etiologies for the patient's shortness of breath, mainly pulmonary; pulmonary function tests have been ordered. 2. Aggressive cardiovascular risk factor modification. 3. Follow up with Dr. Frank in the next 3-4 weeks in the [place] office. 4. Follow up with Dr. Hernandez [...] the left radial artery was obtained. A 6-Italian sheath was inserted without difficulty. Bilateral selective coronary angiography was performed using 5-Italian JR4 and JL4 catheters. After reviewing the [...] P Jian Frank M.D. Date Dict: 11/19/2021/01:09 Norah Frank M.D. Date Trans: 11/19/2021 02:08 P/yennifer [id number] cc: Dorcas Hernandez M.D. [address] [facility] [id number] Normal [facility] Covid-19 PCR (CVDTB)on 10-30 SARS-CoV-2 (COVID-19) RNA STEVE+probe Ql (Unsp spec) Not detected Normal NOT DETECTED [facility] Comment on above: Result Comment: This test is not yet approved or cleared by the [place] FDA. When there are no FDA-approved or cleared tests available, and other criteria are met, FDA can make tests available under an emergency access mechanism called an Emergency Use Authorization (EUA). The EUA for this test is supported by the Cycle Director of Health and Human Service's (HHS's) declaration [...] By: #### F T3, TSH, T4 #### [facility] [address] [place] [address] Dr. Abelardo Barrett CBC AUTO DIFFon 11-14-2021 BASO # 0.0 103/ul Normal 0.0-0.1 [facility] Comment on above: Performed By: #### F T3, TSH, T4 #### [facility] [address] [place] [address] Dr. Abelardo Barrett Basophils/100 WBC (Bld) 0.8 % Normal 0.2-2.0 [facility] Comment on above: Performed By: #### F T3, TSH, T4 #### [facility] [address] [place] [address] Dr. Abelardo Barrett EO # 0.1 103/ul Normal 0.0-0.7 [facility] Comment on above: Performed By: #### F T3, TSH, T4 #### [facility] [address] [place] [address] Dr. Abelardo Barrett Eosinophils/100 WBC (Bld) 2.1 % Normal 0.9-7.0 [facility] Comment on above: Performed By: #### F T3, TSH, T4 #### [facility] [address] [place] [address] Dr. Abelardo Barrett Erythrocyte distribution width (RBC) [Ratio] 12.0 % Normal 11.0-15.0 [facility] Comment on above: Performed By: #### F T3, TSH, T4 #### [facility] [address] [address] [address] Abelardo Barrett Hematocrit (Bld) [Volume fraction] 36.2 % Normal 36.0-48.0 [facility] Comment on above: Performed By: #### F T3, TSH, T4 #### [facility] [address] [place] [address] Dr. Abelardo Barrett Hemoglobin (Bld) [Mass/Vol] 11.6 g/dL Critically low 12.0-16.0 [facility] Comment on above: Performed By: #### F T3, TSH, T4 #### [facility] [address] [place] [address] Dr. Abelardo Barrett IG # 0.01 10e3/ul Normal 0.00-0.03 [facility] Comment on above: Performed By: #### F T3, TSH, T4 #### [facility] [address] [place] [address] Dr. Abelardo Barrett IG % 0.2 % Normal 0.0-0.5 [facility] Comment on above: Performed By: #### F T3, TSH, T4 #### [facility] [address] [place] [address] Dr. Abelardo Barrett LYMPH # 0.8 103/ul Critically low 1.2-3.8 [facility] Comment on above: Performed By: #### F T3, TSH, T4 #### [facility] [address] [place] [address] Dr. Abelardo Barrett Lymphocytes/100 WBC (Bld) 15.8 % Critically low 20.5-60.0 [facility] Comment on above: Performed By: #### F T3, TSH, T4 #### [facility] [address] [place] [address] Dr. Abelardo Barrett MANUAL DIFF REQ NO Normal [facility] Comment on above: Performed By: #### F T3, TSH, T4 #### [facility] [address] [place] [address] Dr. Abelardo Barrett MCH (RBC) [Entitic mass] 30.2 pg Normal 26.7-34.0 [facility] Comment on above: Performed By: #### F T3, TSH, T4 #### [facility] [address] [place] [address] Dr. Abelardo Barrett MCHC (RBC) [Mass/Vol] 32.0 g/dL Normal 29.9-35.2 [facility] Comment on above: Performed By: #### F T3, TSH, T4 #### [facility] [address] [place] [address] Dr. Abelardo Barrett MCV (RBC) [Entitic vol] 94.3 fL Normal 81.0-99.0 [facility] Comment on above: Performed By: #### F T3, TSH, T4 #### [facility] [address] [place] [address] Dr. Abelardo Barrett MONO # 0.4 103/ul Normal 0.3-0.8 [facility] Comment on above: Performed By: #### F T3, TSH, T4 #### [facility] [address] [place] [address] Dr. Abelardo Barrett Monocytes/100 WBC (Bld) 8.3 % Normal 1.7-12.0 [facility] Comment on above: Performed By: #### F T3, TSH, T4 #### [facility] [address] [place] [address] Dr. Abelardo Barrett NEUT # 3.8 103/ul Normal 1.4-6.5 [facility] Comment on above: Performed By: #### F T3, TSH, T4 #### [facility] [address] [place] [address] Dr. Abelardo Barrett Neutrophils/100 WBC (Bld) 72.8 % Normal 43.0-75.0 [facility] Comment on above: Performed By: #### F T3, TSH, T4 #### [facility] [address] [place] [address] Dr. Abelardo Barrett Platelet mean volume (Bld) [Entitic vol] 8.6 fL Critically low 9.5-13.5 [facility] Comment on above: Performed By: #### F T3, TSH, T4 #### [facility] [address] [address] [address] Abelardo Barrett PLT 244 103/ul Normal 150-450 [facility] Comment on above: Performed By: #### F T3, TSH, T4 #### [facility] [address] [address] [address] Abelardo Barrett RBC 3.84 106/ul Critically low 4.20-5.40 [facility] Comment on above: Performed By: #### F T3, TSH, T4 #### [facility] [address] [address] [address] Abelardo Barrett WBC 5.2 103/ul Normal 4.0-11.0 [facility] Comment on above: Performed By: #### F T3, TSH, T4 #### [facility] [address] [place] [address] Dr. Abelardo Barrett PROF CHEM 8 (BAS METB)on Anion gap [Moles/Vol] 12.0 mmol/L Normal [facility] Comment on above: Performed By: #### B MP, HSTROPN #### [facility] [address] [place] [address] Dr. Ableardo Barrett Calcium [Mass/Vol] 9.2 mg/dL Normal 8.5-10.1 [facility] Comment on above: Performed By: #### B MP, HSTROPN #### [facility] [address] [place] [address] Dr. Abelardo Barrett Chloride [Moles/Vol] 101 mmol/L Normal 98-107 [facility] Comment on above: Performed By: #### B MP, HSTROPN #### [facility] [address] [place] [address] Dr. Abelardo Barrett CO2 [Moles/Vol] 26.3 mmol/L Normal 21.0-32.0 [facility] Comment on above: Performed By: #### B MP, HSTROPN #### [facility] [address] [place] [address] Dr. Abelardo Barrett Creatinine [Mass/Vol] 0.90 mg/dL Normal 0.55-1.02 [facility] Comment on above: Performed By: #### B VIBHA, HSTROPN #### [facility] [address] [address] [address] Abelardo Barrett EGFR-AF MOLDOVAN >60 Normal >=60 [facility] Comment on above: Performed By: #### B VIBHA, HSTROPN #### [facility] [address] [address] [address] Abelardo Barrett EGFR-NON AF MOLDOVAN >60 Normal >=60 [facility] Comment on above: Performed By: #### B VIBHA, HSTROPN #### [facility] [address] [place] [address] Dr. Abelardo Barrett Glucose [Mass/Vol] 101 mg/dL Normal 74-106 [facility] Comment on above: Performed By: #### B VIBHA, HSTROPN #### [facility] [address] [place] [address] Dr. Abelardo Barrett Potassium [Moles/Vol] 4.3 mmol/L Normal 3.5-5.1 [facility] Comment on above: Performed By: #### B VIBHA, HSTROPN #### [facility] [address] [place] [address] Dr. Abelardo Barrett Sodium [Moles/Vol] 135 mmol/L Critically low 136-145 [facility] Comment on above: Performed By: #### B VIBHA, HSTROPN #### [facility] [address] [address] [address] Abelardo Barrett Urea nitrogen [Mass/Vol] 34.0 mg/dL Critically high 7.0-18.0 [facility] Comment on above: Performed By: #### B VIBHA, HSTROPN #### [facility] [address] [place] [address] Dr. Abelardo Barrett Urea nitrogen/Creatinine [Mass ratio] 37.8 mg/mg Normal [facility] Comment on above: Performed By: #### B VIBHA, HSTROPN #### [facility] [address] [place] [address] Dr. Abelardo Barrett TROPONIN, HIGH SENSITIVITYon 11-14-2021 HSTROP 5.8 pg/mL Normal 4.0-51.3 [facility] Comment on above: Result Comment: CUT- OFF POINTS HAVE BEEN ESTABLISHED BASED ON THE FOURTH UNIVERSAL DEFINITIONS OF MYOCARDIAL INFARCTION. THE UPPER REFERENCE LIMIT (URL) OF TROPONIN, DEFINED THE 99TH PERCENTILE OF cTnI DISTRIBUTION IN A REFERENCE POPULATION, HAS BEEN CONFIRMED THE DECISION THRESHOLD FOR ID DIAGNOSIS. Performed By: #### C MP, LIPID #### [facility] [address] [address] [address] Abelardo Barrett HSTROP 5.8 pg/mL Normal 4.0-51.3 [facility] Comment on above: Result Comment: CUT- OFF POINTS HAVE BEEN ESTABLISHED BASED ON THE FOURTH UNIVERSAL DEFINITIONS OF MYOCARDIAL INFARCTION. THE UPPER REFERENCE LIMIT (URL) OF TROPONIN, DEFINED THE 99TH PERCENTILE OF cTnI DISTRIBUTION IN A REFERENCE POPULATION, HAS BEEN CONFIRMED THE DECISION THRESHOLD FOR ID DIAGNOSIS. Performed By: #### B MP, HSTROPN #### [facility] [address] [address] [address] Abelardo Barrett XR CHEST 1 Von [...] LETICIA HOYT Date: 2021-11-14 12:45 Normal [facility] CBC AUTO DIFFon 10-27-2021 BASO # 0.1 103/ul Normal 0.0-0.1 [facility] Comment on above: Performed By: #### C BC #### [facility] [address] [address] [address] Abelardo Barrett Basophils/100 WBC (Bld) 1.1 % Normal 0.2-2.0 [facility] Comment on above: Performed By: #### C BC #### [facility] [address] [place] [address] Dr. Abelardo Barrett EO # 0.2 103/ul Normal 0.0-0.7 [facility] Comment on above: Performed By: #### C BC #### [facility] [address] [place] [address] Dr. Abelardo Barrett Eosinophils/100 WBC (Bld) 3.9 % Normal 0.9-7.0 [facility] Comment on above: Performed By: #### C BC #### [facility] [address] [place] [address] Dr. Abelardo Barrett Erythrocyte distribution width (RBC) [Ratio] 12.1 % Normal 11.0-15.0 [facility] Comment on above: Performed By: #### C BC #### [facility] [address] [place] [address] Dr. Abelardo Barrett Hematocrit (Bld) [Volume fraction] 33.6 % Critically low 36.0-48.0 [facility] Comment on above: Performed By: #### C BC #### [facility] [address] [place] [address] Dr. Abelardo Barrett Hemoglobin (Bld) [Mass/Vol] 11.1 g/dL Critically low 12.0-16.0 [facility] Comment on above: Performed By: #### C BC #### [facility] [address] [place] [address] Dr. Abelardo Barrett IG # 0.01 10e3/ul Normal 0.00-0.03 [facility] Comment on above: Performed By: #### C BC #### [facility] [address] [place] [address] Dr. Abelardo Barrett IG % 0.2 % Normal 0.0-0.5 [facility] Comment on above: Performed By: #### C BC #### [facility] [address] [place] [address] Dr. Abelardo Barrett LYMPH # 1.3 103/ul Normal 1.2-3.8 [facility] Comment on above: Performed By: #### C BC #### [facility] [address] [place] [address] Dr. Abelardo Barrett Lymphocytes/100 WBC (Bld) 28.5 % Normal 20.5-60.0 [facility] Comment on above: Performed By: #### C BC #### [facility] [address] [place] [address] Dr. Abelardo Barrett MANUAL DIFF REQ NO Normal [facility] Comment on above: Performed By: #### C BC #### [facility] [address] [place] [address] Dr. Abelardo Barrett MCH (RBC) [Entitic mass] 30.8 pg Normal 26.7-34.0 [facility] Comment on above: Performed By: #### C BC #### [facility] [address] [place] [address] Dr. Abelardo Barrett MCHC (RBC) [Mass/Vol] 33.0 g/dL Normal 29.9-35.2 [facility] Comment on above: Performed By: #### C BC #### [facility] [address] [place] [address] Dr. Abelardo Barrett MCV (RBC) [Entitic vol] 93.3 fL Normal 81.0-99.0 [facility] Comment on above: Performed By: #### C BC #### [facility] [address] [place] [address] Dr. Abelardo Barrett MONO # 0.5 103/ul Normal 0.3-0.8 [facility] Comment on above: Performed By: #### C BC #### [facility] [address] [place] [address] Dr. Abelardo Barrett Monocytes/100 WBC (Bld) 11.1 % Normal 1.7-12.0 [facility] Comment on above: Performed By: #### C BC #### [facility] [address] [place] [address] Dr. Abelardo Barrett NEUT # 2.5 103/ul Normal 1.4-6.5 [facility] Comment on above: Performed By: #### C BC #### [facility] [address] [place] [address] Dr. Abelardo Barrett Neutrophils/100 WBC (Bld) 55.2 % Normal 43.0-75.0 [facility] Comment on above: Performed By: #### C BC #### [facility] [address] [place] [address] Dr. Abelardo Barrett Platelet mean volume (Bld) [Entitic vol] 9.1 fL Critically low 9.5-13.5 [facility] Comment on above: Performed By: #### C BC #### [facility] [address] [address] [address] Abelardo Barrett PLT 241 103/ul Normal 150-450 [facility] Comment on above: Performed By: #### C BC #### [facility] [address] [place] [address] Dr. Abelardo Barrett RBC 3.60 106/ul Critically low 4.20-5.40 [facility] Comment on above: Performed By: #### C BC #### [facility] [address] [place], [place] [id number] Dr. Abelardo Barrett WBC 4.6 103/ul Normal 4.0-11.0 [facility] Comment on above: Performed By: #### C BC #### [facility] [address] [place] [address] Dr. Abelardo Barrett ECHOCARDIO M/2D COMPLETEon 0 10-27-2021 ECHOCARDIO M/2D COMPLETE Patient: ANASTASIA PONCE Exam Date: 10/27/2021 : 1945 Gender:F Ordering : DR DORCAS HERNANDEZ . Admission #: [id number] Family : Order #: [id number] CLICK HERE TO VIEW EXAM ECHOCARDIOGRAM REPORT [...] Area(A4C): 17.20 cm2 Left Atrium Systolic Volume(A2C): 38716 mm3 Left Atrium Systolic Volume(A4C): 38669 mm3 Mitral Valve MV E to A Ratio: 0.80 Deceleration Cochran: 2480 mm/s2 Mitral Valve A-Wave Peak Velocity: [...] Mayberry M.D. on 10/27/2021 at 19:38 Normal [facility] FREE T3on 10-27-2021 FREE T3 4.10 pg/mlL Critically high 2.18-3.98 [facility] Comment on above: Performed By: #### F T3, TSH, T4 #### [facility] [address] [address] [address] Abelardo Barrett GLYCOHEMOGLOBIN A1Con 2021 ADA RECOMMENDATION SEE BELOW Normal [facility] Comment on above: Result Comment: ADA RECOMMENDED LIMIT 4.0 - 6.0 ADA THERAPEUTIC TARGET < 7.0 ACTION SUGGESTED > 7.0 Performed By: #### F T3, TSH, T4 #### [facility] [address] [address] [address] Abelardo Barrett Glucose [Mass/Vol] 123 mg/dL Normal [facility] Comment on above: Performed By: #### F T3, TSH, T4 #### [facility] [address] [address] [address] Abelardo Barrett HbA1c (Bld) [Mass fraction] 5.9 % Normal 4.5-6.2 [facility] Comment on above: Performed By: #### F T3, TSH, T4 #### [facility] [address] [address] [address] Abelardo Barrett IRONon 10-27-2021 Iron [Mass/Vol] 63.0 ug/dL Normal 50.0-170.[address] [facility] Comment on above: Performed By: #### C MP, LIPID #### [facility] [address] [address] [address] Abelardo Barrett LIPID PROFILEon 10-27-2021 CHOL-HDL RATIO NORM SEE BELOW Normal [facility] Comment on above: Result Comment: 3.3 - 4.4 LOW RISK 4.4 - 7.1 AVERAGE RISK 7.1 - 11.0 MODERATE RISK >11.0 HIGH RISK Performed By: #### C MP, LIPID #### [facility] [address] [address] [address] Abelardo Barrett Cholesterol [Mass/Vol] 163 mg/dL Normal <=200 [facility] Comment on above: Performed By: #### C MP, LIPID #### [facility] [address] [address] [address] Abelardo Barrett Cholesterol in HDL [Mass/Vol] 74 mg/dL Critically high 40-60 [facility] Comment on above: Performed By: #### C MP, LIPID #### [facility] [address] [address] [address] Abelardo Barrett Cholesterol in LDL [Mass/Vol] 79.2 mg/dL Normal [facility] Comment on above: Performed By: #### C MP, LIPID #### [facility] [address] [address] [address] Abelardo Barrett Cholesterol.total/C holesterol in HDL [Mass ratio] 2.2 {ratio} Normal [facility] Comment on above: Performed By: #### C MP, LIPID #### [facility] [address] [address] [address] Abelardo Barrett HDL NORMAL > or = 60 mg/dl - LO W CARDIOVASCULAR RISK <40 mg/dl - HIGH CARDIOVASCULAR RISK Normal [facility] Comment on above: Performed By: #### C MP, LIPID #### [facility] [address] [place] [address] Dr. Abelardo Barrett LDL CALC NORMAL SEE BELOW Normal [facility] Comment on above: Result Comment: <100 mg/dl OPTIMAL 100 - 129 mg/dl NEAR OR ABOVE OPTIMAL 130 - 159 mg/dl BORDERLINE HIGH 160 - 189 mg/dl HIGH >190 mg/dl VERY HIGH Performed By: #### C MP, LIPID #### [facility] [address] [place], [place] [address] Dr. Abelardo Barrett Triglyceride [Mass/Vol] 49 mg/dL Normal <=150 [facility] Comment on above: Performed By: #### C MP, LIPID #### [facility] [address] [place], [place] [address] Dr. Abelardo Barrett VLDL CALC 9.8 mg/dL Normal [facility] Comment on above: Performed By: #### C MP, LIPID #### [facility] [address] [place], [place] [address] Dr. Abelardo Barrett NM STRESS/REST MULTIon 10-27 NM STRESS/REST MULTI Patient: ANASTASIA PONCE Exam Date: 10/27/2021 : 1945 Gender:F Ordering : DR DORCAS HERNANDEZ . Admission #: [id number] Family : Order #: [id number] CLICK HERE TO VIEW EXAM RADIOLOGY REPORT [...] anteroseptal. Basal inferoseptal. Mid-anteroseptal. Mid-inferoseptal. Apical septal. [place]. SIZE: Large (5 or more segments). SEVERITY: Moderate. TYPE: Mixed. WALL MOTION: Normal. Basal inferoseptal. Mid-anterior. Mid-anteroseptal. [place]. LV SIZE: Normal. 63 mL. TID / [...] MD on 10/27/2021 at 12:10 Normal [facility] PROF 14(COMP METB)on 022 Albumin [Mass/Vol] 3.2 g/dL Critically low 3.4-5.0 Th e [facility] Comment on above: Performed By: #### C MP, LIPID #### [facility] [address] [place] [address] Dr. Abelardo Barrett Albumin/Globulin [Mass ratio] 0.9 {ratio} Normal [facility] Comment on above: Performed By: #### C MP, LIPID #### [facility] [address] [place] [address] Dr. Abelardo Barrett ALP [Catalytic activity/Vol] 50 U/L Normal 46-116 [facility] Comment on above: Performed By: #### C MP, LIPID #### [facility] [address] [place] [address] Dr. Abelardo Barrett ALT [Catalytic activity/Vol] 38 U/L Normal 14-59 [facility] Comment on above: Performed By: #### C MP, LIPID #### [facility] [address] [place] [address] Dr. Abelardo Barrett Anion gap [Moles/Vol] 13.4 mmol/L Normal [facility] Comment on above: Performed By: #### C MP, LIPID #### [facility] [address] [place] [address] Dr. Abelardo Barrett AST [Catalytic activity/Vol] 27 U/L Normal 15-37 [facility] Comment on above: Performed By: #### C MP, LIPID #### [facility] [address] [place] [address] Dr. Abelardo Barrett Bilirubin [Mass/Vol] 0.4 mg/dL Normal 0.2-1.0 [facility] Comment on above: Performed By: #### C MP, LIPID #### [facility] [address] [place] [address] Dr. Abelardo Barrett Calcium [Mass/Vol] 8.6 mg/dL Normal 8.5-10.1 [facility] Comment on above: Performed By: #### C MP, LIPID #### [facility] [address] [place] [address] Dr. Abelardo Barrett Chloride [Moles/Vol] 107 mmol/L Normal 98-107 [facility] Comment on above: Performed By: #### C MP, LIPID #### [facility] [address] [place] [address] Dr. Abelardo Barrett CO2 [Moles/Vol] 24.7 mmol/L Normal 21.0-32.0 [facility] Comment on above: Performed By: #### C MP, LIPID #### [facility] [address] [place] [address] Dr. Abelardo Barrett Creatinine [Mass/Vol] 0.75 mg/dL Normal 0.55-1.02 [facility] Comment on above: Performed By: #### C MP, LIPID #### [facility] [address] [place] [address] Dr. Abelardo Barrett EGFR-AF MOLDOVAN >60 Normal >=60 [facility] Comment on above: Performed By: #### C MP, LIPID #### [facility] [address] [place] [address] Dr. Abelardo Barrett EGFR-NON AF MOLDOVAN >60 Normal >=60 [facility] Comment on above: Performed By: #### C MP, LIPID #### [facility] [address] [place] [address] Dr. Abelardo Barrett Globulin (S) [Mass/Vol] 3.4 g/dL Normal [facility] Comment on above: Performed By: #### C MP, LIPID #### [facility] [address] [place] [address] Dr. Abelardo Barrett Glucose [Mass/Vol] 92 mg/dL Normal 74-106 [facility] Comment on above: Performed By: #### C MP, LIPID #### [facility] [address] [address] [address] Abelardo Barrett Potassium [Moles/Vol] 4.1 mmol/L Normal 3.5-5.1 [facility] Comment on above: Performed By: #### C MP, LIPID #### [facility] [address] [place] [address] Dr. Abelardo Barrett Protein [Mass/Vol] 6.6 g/dL Normal 6.4-8.2 [facility] Comment on above: Performed By: #### C MP, LIPID #### [facility] [address] [place] [address] Dr. Abelardo Barrett Sodium [Moles/Vol] 141 mmol/L Normal 136-145 [facility] Comment on above: Performed By: #### C MP, LIPID #### [facility] [address] [place] [address] Dr. Abelardo Barrett Urea nitrogen [Mass/Vol] 29.0 mg/dL Critically high 7.0-18.0 [facility] Comment on above: Performed By: #### C MP, LIPID #### [facility] [address] [place] [address] Dr. Abelardo Barrett Urea nitrogen/Creatinine [Mass ratio] 38.7 mg/mg Normal [facility] Comment on above: Performed By: #### C MP, LIPID #### [facility] [address] [place] [address] Dr. Abelardo Barrett T4on 10-27-2021 T4 [Mass/Vol] 9.40 ug/dL Normal 4.80-13.90 [facility] Comment on above: Performed By: #### F T3, TSH, T4 #### [facility] [address] [place] [address] Dr. Abelardo Barrett TSHon 10-27-2021 TSH Qn m[IU]/L Critically low 0.358-3.740 [facility] Comment on above: Performed By: #### F T3, TSH, T4 #### [facility] [address] [address] [address] Abelardo Barrett T4 [facility] 10-01-2021 T4 [Mass/Vol] 9.4 ug/dL Normal 4.5-12.0 [facility] Comment on above: Performed By: #### T 4LC #### [facility] [address] [address] [address] Abelardo Barrett FREE T3on 09-30-2021 FREE T3 4.05 pg/mlL Critically high 2.18-3.98 [facility] Comment on above: Performed By: #### F T3, TSH, T4 #### [facility] [address] [place] [address] Dr. Abelardo Barrett TSHon 09-30-2021 TSH Qn m[IU]/L Critically low 0.358-3.740 [facility] Comment on above: Performed By: #### F T3, TSH, T4 #### [facility] [address] [place] [address] Dr. Abelardo Barrett TSH RANGE SEE BELOW Normal [facility] Comment on above: Result Comment: <0.3 4 UIU/ml HYPERTHYROID 0.34-5.60 UIU/ml EUTHYROID >5.60 UIU/ml HYPOTHYROID Performed By: #### F T3, TSH, T4 #### [facility] [address] [place] [address] Dr. Abelardo Barrett FREE T3on 08-14-2021 FREE T3 1.73 pg/mlL Critically low 2.77-5.[address] [facility] Comment on above: Performed By: #### C MP, LIPID #### [facility] [address] [place] [address] Dr. Abelardo Barrett T4on 08-14-2021 T4 [Mass/Vol] 4.40 ug/dL Critically low 5.53-11.00 [facility] Comment on above: Performed By: #### C MP, LIPID #### [facility] [address] [place] [address] Dr. Abelardo Barrett TSHon 08-14-2021 TSH 0.349 uIU/mL Critically low 0.470-4.680 [facility] Comment on above: Performed By: #### C MP, LIPID #### [facility] [address] [address] [address] Abelardo Barrett TSH RANGE SEE BELOW Normal [facility] Comment on above: Result Comment: <0.3 4 UIU/ml HYPERTHYROID 0.34-5.60 UIU/ml EUTHYROID >5.60 UIU/ml HYPOTHYROID Performed By: #### C MP, LIPID #### [facility] [address] [address] [address] Abelardo Barrett Outside Colonoscopyon 2020 Outside Colonoscopy [id number]: 127 Normal [facility] RAD - MISCon 05-14-2020 RAD - MISC [id number]: 127 Normal [facility] Lab Reportson 05-12-2020 Lab Reports [id number]: 127 Normal [facility] Provider Letter FTMCon 05-07 Provider Letter [facility] Dorcas Hernandez, [address] [place] [address] [place] [address] Re: ANASTASIA PONCE Date of : 1945 Thank you for your referral of Anastasia Ponce who was seen on consultation on April 30, 2020, for positive occult stool. A colonoscopy is planned for further evaluation. I have enclosed my consultation notes for your review. I will be happy to follow Anastasia should her symptoms persist. Sincerely, Ajith Renee MD General Surgery [facility] Consent for Procedure/Surger yon 05-06-2020 Consent for Procedure/Surgery [id number]: 127 Normal [facility] Facesheeton 05-01-2020 Facesheet [id number]: 127 Normal [facility] Ambulatory Clinical Summaryo n 04-30-2020 Ambulatory Clinical Summary {[id number] }CD:[id number] Normal [facility] Ambulatory Clinical Summary {[id number] }CD:[id number] Normal [facility] Physician Referralon 020 Physician Referral [id number]: 127 Normal [facility] Vital Signs Date Time Vital Sign Value Performing Clinician Faci lity 05-27-2022 16:10-0500 Body temperature 96.4 [degF] Saranya Durham MD Work Phone: [facility] 05-27-2022 16:10-0500 Diastolic blood pressure 72 mm[Hg] Saranya Durham MD Work Phone: [facility] 05-27-2022 16:10-0500 Heart rate 81 /min Saranya Durham MD Work Phone: [facility] 05-27-2022 16:10-0500 SaO2% (BldA) [Mass fraction] 99 % Saranya Durham MD Work Phone: [facility] 05-27-2022 16:10-0500 Systolic blood pressure 145 mm[Hg] Saranya Durham MD Work Phone: [facility] 05-27-2022 14:30-0500 Respiratory rate 15 /min Saranya Durham MD Work Phone: [facility] 07-29-2021 09:16-0400 Body height 162.6 cm Gertrudis Encarnacion MD Work Phone: [facility] 07-29-2021 09:16-0400 Body mass index (BMI) [Ratio] 23.34 kg/m2 Gertrudis Encarnacion MD Work Phone: [facility] 07-29-2021 09:16-0400 Body temperature 97.59 [degF] Gertrudis Encarnacion MD Work Phone: [facility] 07-29-2021 09:16-0400 Body weight 61.69 kg Gertrudis Encarnacion MD Work Phone: [facility] 07-29-2021 09:16-0400 Diastolic blood pressure 85 mm[Hg] Gertrudis Encarnacion MD Work Phone: [facility] 07-29-2021 09:16-0400 Heart rate 91 /min Gertrudis Encarnacion MD Work Phone: [facility] 07-29-2021 09:16-0400 Systolic blood pressure 144 mm[Hg] Gertrudis Encarnacion MD Work Phone: [facility] Encounters Encounter Date Encounter Type Care Provider Facility Start: 05-10-2023 End: 05-10-2023 ambulatory ELOISA A PETITTI Not Available Start: 03-29-2023 End: 03-29-2023 ambulatory ELOISA A PETITTI Not Available Start: 03-15-2023 End: 03-15-2023 ambulatory MELISSA A FELTER Not Available Start: 10-20-2022 End: 10-20-2022 ambulatory Gertrudis Encarnacion Facility:[facility] Start: 06-15-2022 End: 06-16-[address] DOCTOR BANDA Facility:[facility] Start: 06-01-2022 End: 06-01-[address] NIKUNJ LINDSEY Facility:[facility] Start: 05-27-2022 End: 05-27-2022 Evaluation and management of inpatient SARANYA DURHAM [facility] Start: 05-27-2022 End: 05-27-2022 Evaluation and management of inpatient Saranya Durham MD Work Phone: [facility] Comment on above: 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 Facility:[facility] Start: 01-15-2022 End: 01-16-[address] DORCAS HERNANDEZ . Facility:[facility] Start: 12-14-2021 End: 12-15-[address] JIAN FRANK Facility:[facility] Start: 11-19-2021 End: 11-20-2021 ambulatory DROCAS HERNANDEZ Facility:[facility] Start: 11-18-2021 Encounter for preprocedural laboratory examination ELAMONICA MELTON [facility] Start: 11-17-2021 End: 11-18-2021 ambulatory ELA MELTON Facility:[facility] Start: 11-17-2021 End: 11-18-2021 Encounter for preprocedural laboratory examination ELA ANDERSONCKER Facility:[facility] Start: 11-14-2021 End: 11-14-2021 ambulatory NIKHIL GIORDANO Facility:[facility] Start: 11-03-2021 End: 11-16-2021 ambulatory DORCAS HERNANDEZ Facility:[facility] Start: 10-29-2021 End: 10-29-[address] DORCAS HERNANDEZ . Facility:[facility] Start: 10-27-2021 End: 10-28-[address] DORCAS HERNANDEZ . Facility:[facility] Start: 09-30-2021 End: 10-01-[address] DORCAS HERNANDEZ . Facility:[facility] Start: 08-14-2021 End: 08-15-[address] DORCAS HERNANDEZ . Facility:[facility] Start: 07-29-2021 End: 07-29-2021 Patient encounter procedure Gertrudis Encarnacion MD Work Phone: [facility] Comment on above: Rhytides [...] above: Performed By: #### 3 4532-2 #### [facility] [address] [place] [address] Start: 05-27-2022 POCT GLUCOSE BLOOD Cuba Durham MD Work Phone: Start: 05-27-2022 Sars-cov-2 detection by dna/rna Saranya Durham MD Work Phone: Start: 05-27-2022 Antibody screen rbc each serum technique Saranya Durham MD Work Phone: Start: 05-17-2022 Antibody screen SARANY[facility] OAKES Comment on above: Performed By: #### 3 4532-2 #### [facility] [address] [place] [address] Plan of Treatment Date Care Activity Detail Author Start: 05-27-2023 Falls Risk Assessment Falls Risk Ass essment [facility] Start: 05-17-2023 Hypertension/CHF/CAD Annual BMP Blood Test Hypertension/CHF/CAD Annual BMP Blood Test [facility] Start: 05-17-2022 Adolescent depressio n screening assessment Depression Screening [facility] Start: 05-17-2022 Hepatitis C screening Hepatitis C Sc reening [facility] Start: 05-17-2022 Lipid panel Cholesterol Sc reening (Lipid Panel) [facility] Start: 05-17-2022 Medicare Annual Well ness Visit Medicare Annual Wellness Visit [facility] Start: 05-17-2022 Screening for malign ant neoplasm of breast Breast Cancer Screening [facility] Start: 05-17-2022 Screening for malign ant neoplasm of colon Colorectal Cancer Screening: Colonoscopy [facility] Start: 05-17-2022 Screening for osteoporosis Osteoporosis Screening (Bone Density Screening) [facility] Start: 05-17-2022 Social Influencers o f Health Screening Social Influencers of Health Screening [facility] Start: 04-23-2021 COVID-19 VACCINE (2 - Pfizer 3-dose series) COVID-19 VACCINE (2 - Pfizer 3-dose series) [facility] Start: 04-23-2021 COVID-19 Vaccine (2 - Pfizer series) COVID-19 Vaccine (2 - Pfizer series) [facility] Start: 12-31-2020 Influenza vaccination INFLUENZA VACC INE (#1) [facility] Start: 12-24-2012 Pneumococcal vaccination PNEUM OCOCCAL VACCINE SERIES (1 of 1 - PPSV23) [facility] Start: 12-24-1997 Zoster vaccine hzv l cata for subcutaneous use ZOSTER (SHINGLES) VACCINE (1 of 2) [facility] Start: 12-24-1997 Zoster Vaccines (1 of 2) Zoster Vacc maury (1 of 2) [facility] Start: 12-24-1992 Colonoscopy COLORECTAL CAN CER SCREENING DISCUSSION [facility] Start: 1987 Fasting lipid profile LIPID SCREENIN G [facility] Start: 1987 Screening mammography MAMMOGRA M SCREENING DISCUSSION [facility] Start: 12-24-1968 Screening for malign ant neoplasm of cervix CERVICAL CANCER SCREENING DISCUSSION [facility] Start: 12-24-1966 DTaP,Tdap,and Td Vac cines (1 - Tdap) DTaP,Tdap,and Td Vaccines (1 - Tdap) [facility] Start: 12-24-1966 Third diphtheria, te tanus and acellular pertussis (DTaP) vaccination TDAP (ADULT) [facility] Start: 12-24-1965 Tetanus vaccination TETANUS [facility] Start: 1945 Hepatitis C antibody , confirmatory test HEPATITIS C VIRUS SCREENING [facility] Start: 1945 Screening for osteoporosis DEXA SCAN DISCUSSION [facility] Bacteria identified in Tissue by Culture Culture tissue with gram stain Microbiology Routine Other mechanical complication of internal left hip prosthesis, initial encounter ([facility]) 05/27/2022 11:30 AM EST [facility] Bacteria identified in Tissue by Culture Culture [...] of internal left hip prosthesis, initial encounter ([facility]) 05/27/2022 11:30 AM EST [facility] Fungus identified in Skin by Culture Culture fungal, other Microbiology Routine 05/27/2022 3:08 PM EST [facility] Mycobacterium sp identified in Unspecified specimen by Organism specific culture Culture AFB Microbiology Routine Other mechanical complication of internal left hip prosthesis, initial encounter ([facility]) 05/27/2022 11:30 AM EST [facility] Mycobacterium sp identified in Unspecified specimen by Organism specific culture Culture AFB Microbiology Routine 05/27/2022 3:08 PM EST [facility] Comment on above: Release Upon Orderin g for 1 Occurrences starting 05/27/2022, 1 completed Immunizations Immunization Date Immunization Notes Care Provider [facility] 04-09-2020 influenza virus vaccine, unspecified formulation Gertrudis Encarnacion MD Work Phone: [facility] Payers Date Payer Category Payer Self-pay 2022 Medicare [employer]NA MEDICARE A DVANTAGE AETNA MEDICARE ADVANTAGE [id number] 2022-Present [phone] [address] [place] [address] [id number] 2021 Unknown [id number] [id number] 1957 Medicare [id number] 1957 Medicare [id number] 1945 Unknown [id number] 2.16.840.1.398676.3.579.2.647 1945 Unknown [id number] 2.16.840.1.272996.3.579.2.647 1945 Unknown [id number] 2.16.840.1.308270.3.579.2.1143 1945 Unknown [id number] 2.16.840.1.860021.3.579.2.1143 1947 Unknown [id number] 2.16.840.1.716802.3.579.2.593 1947 Unknown [id number] 2.16.840.1.789121.3.579.2.593 1947 Unknown [id number] 2.16.840.1.063884.3.579.2.593 1947 Unknown [id number] 2.16.840.1.598613.3.579.2.593 1947 Unknown [id number] 2.16.840.1.032330.3.579.2.593 1947 Unknown [id number] 2.16.840.1.704055.3.579.2.593 1947 Unknown [id number] 2.16.840.1.758635.3.579.2.593 1945 Unknown [id number] 2.16.840.1.526345.3.579.2.593 1947 Unknown [id number] 2.16.840.1.475311.3.579.2.593 1947 Unknown [id number] 2.16.840.1.945141.3.579.2.593 1947 Unknown [id number] 2.16.840.1.546892.3.579.2.593 1947 Unknown [id number] 2.16.840.1.154100.3.579.2.593 1947 Unknown [id number] 2.16.840.1.841251.3.579.2.1259 1947 Unknown [id number] 2.16.840.1.820963.3.579.2.1259 1947 Unknown [id number] 2.16.840.1.160741.3.579.2.1259 Unknown [id number] Unknown [id number] 2.16.840.1.084245.3.579.2.462 Social History Date Type Detail Facility Start: 03-10-2021 End: 05-27-2022 Tobacco smoking status NHIS Never smoked tobacco [facility] Start: 03-10-2021 End: 05-27-2022 Tobacco use and exposure Smokeless tobacco non-user [facility] Start: 07-29-2021 Alcohol intake Ex-drinker (finding) [facility] Start: 03-10-2021 History SDOH Alcohol Frequency 1 [facility] Start: 1945 Sex Assigned At Not on file A [facility] [employer] Start: 05-27-2022 Alcohol intake Lifetime non-d ariel (finding) [facility] Start: 05-17-2022 End: 05-27-2022 Exposure to SARS-CoV-2 (event) Not sure [facility] Medical Equipment Procedure Code Equipment Code Equipment Origin al Text Equipment Identifier Dates Hip Hd Option Bl x [facility] 32mm - Sna - [id number] ([id number], [id number] Start: 05-27-2022 Clinical Notes 04-30-2020 to 06-01-2022 Gaby Sanchez RN - 05/27/2022 5:59 PM Lalo Sanchez RN - 05/27/2022 5:57 PM Guy Pope, KARLA - 05/27/2022 5:30 PM Guy Pope RN [...] authenticated by: FER JUAREZ Date: 2022-06-01 12:03 [facility] 05-27-2022 History of Present illness [...] She is waiting to void. [facility] PT Discharge Recommendations: Home [...] of internal left hip prosthesis, initial encounter ([facility]) Past Medical History: Diagnosis Date Adverse [...] of Steps 1 Prior Function Level of Randall Independent with mobility and functional transfers Bed [...] Date/Time User Outcome 05/27/22 1619 Clau Peng, PT Completed Goal: Pt will transfer with SBA. (Resolved) Dates: Start: 05/27/22 Expected End: 05/27/22 Met: 05/27/22 Outcomes Date/Time User Outcome 05/27/22 1619 Clau Peng, PT Completed Goal: Pt will ambulate 100 ft. with wheeled walker and SBA (Resolved) Dates: Start: 05/27/22 Expected End: 05/27/22 Met: 05/27/22 Outcomes Date/Time User Outcome 05/27/22 1619 Clau Peng PT Completed Goal: Pt will ascend/descend curb step with CGA and LRAD (Resolved) Dates: Start: 05/27/22 Expected End: 05/27/22 Met: 05/27/22 Outcomes Date/Time User Outcome 05/27/22 1619 Clau Peng PT Completed Goal: Pt will demo understanding of anterior hip precautions (Resolved) Dates: Start: 05/27/22 Expected End: 05/27/22 Met: 05/27/22 Outcomes Date/Time User Outcome 05/27/22 1619 Clau Peng PT Completed Education Documentation Precautions, taught [...] 05/27/2022 98 IMAGING documented in this encounter [facility] 05-27-2022 Hospital course Narrative -use over the counter stool softeners to prevent constipation -Call your pharmacy prior to discharge to make sure your prescriptions are ready for pickup Please follow surgeon's discharge instructions and prescription directions. Surgeon' discharge instructions are in patient's folder- FOLLOW SURGEON INSTRUCTION SHEETS Contact Surgeon's office with any questions/concerns [phone] -Plasma Flow SCD'S Compression leg pumps on Bilateral Legs for 20 hours per day x 2 weeks for additional DVT prevention- SEE SURGEONS INSTRUCTION SHEETS FOR DIRECTIONS -use over the counter stool softeners to prevent constipation -Call your pharmacy prior to discharge to make sure your prescriptions are ready for pickup Outpatient physical therapy is to begin IKMMY. Please call to schedule if not already [...] or concerns. Verify Office location when scheduling. [email or web address] [phone] Pre-Surgery Instructions: Medication Instructions alendronate (FOSAMAX) 70 [...] prior to your surgery. Check in at human resources receptionist desk [address] [place] [id number]. If Outpatient, these additional instructions apply: An adult must stay with you the whole time you are here and drive you home. An adult must stay with you at home for 24 hours due to Anesthesia. If you have JESUS, you are required to stay 3 hours after your surgery before we can discharge you. documented in this encounter [facility] 05-27-[address] Pemberton, Dr. Durham, OR Nurse all aware of this patients skin tear on the right ankle (caused when patient was putting on her socks) assessed, documented and wound dressing applied. [facility] 05-27-[address] Pemberton, Dr. Durham, OR Nurse all aware of this patients skin tear on the right ankle (caused when patient was putting on her socks) assessed, documented and wound dressing applied. documented in this encounter [facility] 05-27-2022 History and physical note History and Physical Update ( H&P completed within the previous thirty days ) I personally reviewed the History and Physical, interviewed and examined the patient prior to surgery. No changes have occurred in the patient's condition since the History and Physical was completed. [facility] Work Phone: 05-27-2022 History and physical note History and Physical Update ( H&P completed within the previous thirty days ) I personally reviewed the History and Physical, interviewed and examined the patient prior to surgery. No changes have occurred in the patient's condition since the History and Physical was completed. documented in this encounter [facility] 03-31-2022 Note PROCEDURE: XR HIP LT 2 [...] by: FER JUAREZ Date: 2022-03-31 06:56 [facility] 07-29-2021 History of Present illness Narrative General [...] them back PRN. documented in this encounter [facility] 04-30-2020 Note Chief Complaint referral for [...] 04/30/2020 Family History Family history is negative [facility] Comment on above: Result Comment: Elec tronically Signed By: VALERIE DINERO, Ajith Rowe\Date and Time Signed: 04/30/20 15:38 EST Evaluation note Diagnosis Rhytides- Primary Other specified hypertrophic and atrophic condition of skin Atrophic skin Other specified hypertrophic and atrophic condition of skin [facility] Other mechanical complication of internal left hip prosthesis, initial encounter ([facility])- Primary [facility] Pain Generalized [facility] Attachments The following attachments cannot be sent through Care Everywhere. * DVT (Deep Vein Thrombosis): Prevention: General Info (Chinese) * Incentive Spirometer: General Info (Chinese) * Fall Prevention (Chinese) * Opioids: General Info (Chinese) * Constipation (Chinese) * Antibiotics: General Info (Chinese) [facility] for [facility] Narrative* Auth/Cert Specialty Diagnoses / Procedures Referred By Contac t Referred To Contact Diagnoses Other mechanical complication of internal left hip prosthesis, initial encounter ([facility]) T84.091A Procedures [place] REVISION PRATIK ACETABULAR COMPONENT ONLY W/WO AUTOGRAFT/ALLOGRAFT [place] REVISION PRATIK ACETABULAR COMPONENT ONLY W/WO AUTOGRAFT/ALLOGRAFT 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 Relationship Specialty Start Date End Date Dorcas Hernandez MD [address] [place] [address] PCP - General Family Medicine 03/10/21 Adjunct Teacher Relationship Specialty Start Date End Date Dorcas Hernandez MD [address] [place] [address] PCP - General Family Medicine 05/18/22 Adjunct Teacher Relationship Specialty Start Date End Date Dorcas Hernandez MD [address] [place] [address] PCP - General Family Medicine 05/18/22 Ordered [...] oral, 3 times daily, First dose on Inez 05/27/22 [...] 10 mg, oral, Nightly, First dose on Inez 05/27/22 at 2100 2100 (Canceled Entry - Provider: Automatic Discharge Provider - Comment: Automatically canceled at discontinue of medication order) ceFAZolin (ANCEF) 2 gram/20 mL IV syringe 2 g (COMPLETED) 2 g, intravenous, Administer over 3 Minutes, Once, On Inez 05/27/22 at 0845, For 1 dose, Preprocedure, Administer [...] Prophylaxis-Surgical 1709 (Given - Provid er: Gaby Sanchez RN) celecoxib (CeleBREX) capsule 200 mg (COMPLETED) 200 [...] oral, 2 times daily, First dose on Tue05/27/22 at [...] PRN, mild pain, headaches, fever, Starting on Niez 05/27/22 at 1445 aluminum-magnesium hydroxide-simethicone (MAALOX) 200-200-20 [...] constipation, If magnesium hydroxide ineffective, Starting on Inez 05/27/22 at 1445 cloNIDine (CATAPRES) tablet 0.1 mg 0.1 mg, oral, Every 8 hours PRN, high blood pressure, for SBP more than 170 or DBP more than 105, Starting on Inez 05/27/22 at 1445 cyclobenzaprine (FLEXERIL) tablet 10 mg 10 mg, oral, 3 times daily PRN, muscle spasms, Starting on Inez 05/27/22 at 1445 diphenhydrAMINE (BENADRYL) capsule 25 mg 25 mg, oral, Every 6 hours PRN, itching, Starting on Inez 05/27/22 at 1445 diphenhydrAMINE (BENADRYL) injection 25 mg 25 mg, intravenous, Every 6 hours PRN, itching, Starting on Inez 05/27/22 at 1433 EPINEPHrine (ADRENALIN) injection (CANCELED) As needed, Starting on Inez 05/27/22 at 1138, Intraprocedure 1138 (Given - Provid er: Saranya Durham MD) fentaNYL (SUBLIMAZE) injection 25 mcg (CANCELED) 25 mcg, intravenous, Every 5 min PRN, moderate pain, For PACU use only., Starting on Inez 05/27/22 at 1327, For 6 doses, Recovery (only) 1354 (Given - Provid er: Darby Rivera RN)1406 (Given - Provider: Darby Rivera RN) HYDROmorphone (DILAUDID) injection 0.5 mg 0.5 mg, intravenous, Every 2 hours PRN, severe pain, For severe breakthrough pain not relieved with oral pain medication, Starting on Inez 05/27/22 at 1445 magnesium hydroxide (MILK OF MAGNESIA) 400 mg/5 mL suspension 30 mL 30 mL, oral, 2 times daily PRN, constipation, Starting on Inez 05/27/22 at 1445, Follow dose with 8 oz [...] BE BASED ON THE PRIMARY CLINICAL RECORDS. [facility]. provides no warranty or guarantee of the accuracy or completeness of information in this document.
[2023-08-10 08:41] LABS: Free T4 1.43 ng/dL (0.76-1.46)
[2023-08-10 08:44] LABS: Thyroid Stimulating Hormone 0.481 uIU/mL (0.358-3.740)
== END 2023-08-10 07:25 | disposition home or self-care (01) ==
LOC: LAB 07:25
PROVIDERS: PCP Family Medicine; Visit Provider Family Medicine
DX: M81.0 Age-related osteoporosis without current pathological fracture (principal); E03.9 Hypothyroidism, unspecified
CPT/HCPCS: 36415; 82310; 82565; 84439; 84443

== ENCOUNTER 2024-03-20 10:43 | Outpatient (OUT) | payer MEDICARE, SELFPAY ==
[2024-03-20 11:44] LABS: Free T3 2.96 pg/mL (2.18-3.98)
== END 2024-03-20 10:44 | disposition home or self-care (01) ==
LOC: LAB 10:43
PROVIDERS: PCP Family Medicine; Visit Provider Family Medicine
DX: E03.9 Hypothyroidism, unspecified (principal)
CPT/HCPCS: 36415; 84436; 84443; 84481

== ENCOUNTER 2024-04-17 10:39 | Outpatient (OUT) | payer MEDICARE, SELFPAY ==
--- NOTE | 2024-04-17 10:43 | MM_ITS ---
Patient Name: BECKY STRONG MR#: [id number] : 1945 Exam Date: 04/17/2024 Ordering Doctor: Jennifer Sumner RADIOLOGY REPORT PROCEDURE: MM TOMOSYNTHESIS SCREENING BI COMPARISON: MM TOMOSYNTHESIS SCREENING BI, 04/12/2023. MG MAMM SCREEN 3D YONI CAD, 04/07/2022. INDICATIONS: Screening Calculator Name NCI Breast Cancer Risk Assessment Tool 5 Year Breast Cancer Risk 2.90% Lifetime Breast Cancer Risk 5.90% Personal Breast Cancer No Personal Ovarian Cancer No Treatments None Family Cancers None LOCATION: [facility] BREAST COMPOSITION: The breasts are heterogeneously dense,which may obscure small masses. FINDINGS: DIAGNOSTIC CATEGORY 2--BENIGN FINDING. NO CHANGE FROM COMPARISON. Scattered benign-appearing calcifications are present. Scattered benign-appearing lymph nodes are present. RIGHT BREAST: No significant suspicious finding. LEFT BREAST: No significant suspicious finding. Stable micro clip marker lower inner quadrant, mid breast RECOMMENDATIONS: ROUTINE MAMMOGRAM AND CLINICAL EVALUATION IN 12 MONTHS. PLEASE NOTE: A NORMAL MAMMOGRAM DOES NOT EXCLUDE THE POSSIBILITY OF BREAST CANCER. A CLINICALLY SUSPICIOUS PALPABLE LUMP SHOULD BE BIOPSIED. Dictated by: Damaso Nice MD on 04/17/2024 at 12:53 Approved by: Damaso Nice MD on 04/17/2024 at 12:55
--- OUTSIDE RECORDS SUMMARY | 2024-04-17 11:00 | XMS_ITS | CCD ---
Author Organization [facility] Care Team Providers Care Academic Affairs Specialist Name Role Phone Dorcas Aguirre MD Primary Care Provider [phone] DORCAS AGUIRRE Referring Unavailable DORCAS AGUIRRE Primary Care Unavailable GERI CHONG Attending Unavailable GERI CHONG Admitting Unavailable DORCAS AGUIRRE Primary Care Unavailable DORCAS AGUIRRE Referring Unavailable SELF, REFERRED Attending Unavailable SELF, REFERRED Admitting Unavailable Dorcas Aguirre MD Primary Care Provider SARANYA BUTCHER Admitting Unavailable SARANYA BUTCHER Attending Unavailable DORCAS AGUIRRE Primary Care Unavailable [facility], [facility] Consult[facility] Unavailable SARANYA BUTCHER Referring Unavailable DORCAS AGUIRRE Primary Care Unavailable TIMOTHY ., DR TOSCANO Attending Unavailable HOY ., DR TOSCANO Admitting Unavailable HOY ., DR TOSCANO Primary Care Unavailable HOY ., DR TOSCANO Consulting Unavailable ZIEBER, DR FER Cameron Consulting Unavailable CLEVELAND, DR SARANYA Massey Consulting Unavailable AHMED, DR GALEANA Admitting Unavailable HOY ., DR TOSCANO Primary Care Unavailable AHMED, DR GALEANA Attending Unavailable AHMED, DR GALEANA Consulting Unavailable HOY .DR TOSCANO Admitting Unavailable HOY ., DR TOSCANO Attending Unavailable HOY ., DR TOSCANO Primary Care Unavailable HOY ., DR TOSCANO Consulting Unavailable ELTAFRANCISCO, DR KENNEY Consulting Unavailable TIMOTHY ., DR TSOCANO Primary Care Unavailable ELTAFRANCISCO, DR KENNEY Attending [...] Unavailable NIKHIL GIORDANO Attending Unavailable LETICIA HOYT Consulting Unavailable Gertrudis Encarnacion Attending Unavailable Saranya Butcher MD Unavailable Unavailable Dorcsa Aguirre MD Primary Care Provider [phone] ELOISA OWEN Attending Unavailable ELOISA OWEN Attending Unavailable MELISSA SABA Attending Unavailable ELOISA OWEN Attending Unavailable ELOISA OWEN Attending Unavailable MELISSA SABA Attending Unavailable Dorcas Aguirre MD Primary Care Provider [phone] SANJUANITA WHIPPLE Attending Unavailable TIMOTHY, DORCAS M Referring Unavailable TIMOTHY, DORCAS M Primary Care Unavailable SANJUANITA WHIPPLE Attending Unavailable TIMOTHY DORCAS M Referring Unavailable TIMOTHY DORCAS M Primary Care Unavailable SANJUANITA WHIPPLE Referring Unavailable DORCAS AGUIRRE M Primary Care Unavailable Medications Current Medications Medication Drug Class(es) Dates Sig (Normalized) Sig (Original) alendronic acid 70 mg oral tablet (6 sources) Bisphosphonate Start: 02-22-2021 alendronate 70 MG tablet amitriptyline hydrochloride 50 mg oral tablet (6 sources) Tricyclic Antidepressant Start: 02-26-2017 take 1 tablet by mouth once daily amitriptyline (ELAVIL) 50 mg tablet Take 1 tablet (50 mg total) by mouth nightly. 02/26/2017 Active aspirin 81 mg chewable tablet (2 sources) [...] 81 mg celecoxib 200 mg oral capsule (6 sources) Nonsteroidal Anti-inflammatory Drug Start: 05-28-2022 End: 05-27-2022 take 200 mg by mouth once daily 200 mg, oral, Daily, First dose on Tue05/28/22 at 0900, [facility] Start: 05-27-2022 End: 06-26-2022 take 1 capsule by mouth in the morning celecoxib (CeleBREX) 200 MG capsule Take 200 mg by mouth in the morning. 05/27/2022 Active cephalexin 500 mg oral capsule (4 sources) Cephalosporin Antibacterial Start: 05-27-2022 End: 06-06-2022 take 1 capsule by mouth every six hours cephalexin (Keflex) 500 MG capsule TAKE 1 CAPSULE BY MOUTH EVERY 6 HOURS FOR 10 DAYS. 05/27/2022 Active diclofenac sodium 75 mg delayed release oral tablet (8 sources) Nonsteroidal Anti-inflammatory Drug Start: 12-30-2018 take 1 tablet by mouth in the morning, then take 1 tablet by mouth at bedtime diclofenac (VOLTAREN) 75 mg EC tablet Take 1 tablet (75 mg total) by mouth in the morning and 1 tablet (75 mg total) before bedtime. 11 12/30/2018 Active fluorouracil 50 mg/ml topical solution (3 sources) Nucleoside Metabolic Inhibitor fluorouracil (Efudex) 5 % solution every 12 (twelve) hours. Active levothyroxine sodium 0.075 mg oral tablet (8 sources) l-Thyroxine Start: 02-24-2024 take 1 tablet by mouth once daily before breakfast SYNTHROID 75 mcg tablet Take 1 tablet (75 mcg total) by mouth every morning before breakfast. Take on empty stomach 02/24/2024 Active Start: 05-28-2022 End: 05-27-2022 75 mcg, oral, Daily, First d ose on Tue05/28/22 at 0600 ORAL ROUTE: take on an empty stomach and separate from other medications. ENTERAL TUBE ROUTE: If newly initiated enteral nutrition duration is over 5 days, hold enteral nutrition 1 hour before and after drug administration, per ASPEN guidelines. liothyronine sodium 0.005 mg oral tablet (6 sources) l-Triiodothyronine Start: 05-28-2022 End: 05-27-2022 take 5 ug by mouth once daily 5 mcg, oral, Daily, First dose on Tue05/28/22 at 0600 take 1 tablet by mouth once edgar y liothyronine (Cytomel) 5 MCG tablet TAKE 1 TABLET BY MOUTH ONCE DAILY ON AN EMPTY STOMACH Active lisinopril 10 mg oral tablet (9 sources) Angiotensin Converting Enzyme Inhibitor Start: 05-28-2022 End: 05-27-2022 take 10 mg by mouth once daily 10 mg, oral, Daily, First dose on Tue05/28/22 at 0900 Hold for systolic blood pressure less than 110. Start: 04-01-2017 take 1 tablet by will th once daily before breakfast lisinopril (PRINIVIL,ZESTRIL) 10 mg tablet Take 1 tablet (10 mg total) by mouth every morning before breakfast. 04/01/2017 Active montelukast 10 mg oral tablet (3 sources) Leukotriene Receptor Antagonist montelukast (Singula ir) 10 MG tablet Daily. Active ondansetron 4 mg disintegrating oral tablet (9 sources) Serotonin-3 Receptor Antagonist Start: 06-03-2022 ondansetron ODT (Zofran-ODT) [address] 1 TABLET ON TONGUE FOUR TIMES A DAY NEEDED 06/03/2022 Active Start: 05-27-2022 End: 06-03-2022 take 1 tablet by mouth every eight hours as needed for nausea ondansetron (Zofran) 4 MG tablet TAKE 1 TABLET BY MOUTH EVERY 8 HOURS NEEDED FOR NAUSEA OR VOMITING FOR UP TO 7 DAYS 05/27/2022 Active Start: 05-27-2022 End: 05-27-2022 take 4 [...] should allow tablet to dissolve on tongue. phenazopyridine hydrochloride 200 mg delayed release oral tablet (3 sources) Start: 08-25-2022 take 1 tablet by mouth three times daily after mealtime phenazopyridine (Pyridium) 200 MG tablet TAKE 1 TABLET BY MOUTH THREE TIMES A DAY AFTER MEALS FOR 3 DAYS 08/25/2022 Active simvastatin 20 mg oral tablet (8 sources) HMG-CoA Reductase Inhibitor Start: 04-01-2017 take 1 tablet by mouth once daily simvastatin (ZOCOR) 20 mg tablet Take 1 tablet (20 mg total) by mouth nightly. 04/01/2017 Active sulfamethoxazole 800 mg / trimethoprim 160 mg oral tablet (3 sources) Dihydrofolate Reductase Inhibitor Antibacterial, Sulfonamide Antimicrobial Start: 08-25-2022 take 1 tablet by mouth once in the morning, then take 1 tablet by mouth once at bedtime sulfamethoxazole-tr imethoprim (Bactrim DS) 800-160 MG per tablet Take 1 tablet by mouth in the morning and 1 tablet before bedtime. 08/25/2022 Active terbinafine 250 mg oral tablet (3 sources) Allylamine Antifungal Start: 01-13-2023 End: 03-20-2024 take 1 tablet by mouth once daily terbinafine (LamISIL) 250 MG tablet Indications: Onychomycosis Take 1 po daily x 2 months 30 tablet 1 01/13/2023 03/20/2024 Discontinued (Therapy completed) traMADol hydrochloride 50 mg oral tablet (4 sources) Opioid Agonist Start: 05-27-2022 traMADol (Ultram) 50 MG tablet TAKE 1-2 TABS BY MOUTH EVERY 6HRS IF NEEDED FOR MODERATE PAIN UP TO 7 DAYS*MAX DAILY AMOUNT 8 TABS* 05/27/2022 Active Start: 05-27-2022 End: 06-03-2022 take 50-100 mg [...] Sig (Original) acetaminophen 500 mg oral tablet (6 sources) Start: 05-27-2022 End: 05-27-2022 acetaminophen (TYLENOL) tablet 1,000 mg Start: 05-27-2022 End: 06-03-2022 take 2 tablets by mouth three times daily, then take 6 tablets by mouth once daily Acetaminophen Extra Strength 500 MG tablet TAKE 2 TABLETS BY MOUTH 3 TIMES DAILY FOR 7 DAYS*DO NOT EXCEED 6 TABLETS PER DAY* 05/27/2022 Active Start: 05-27-2022 End: 05-27-2022 take 1 [...] First dose on Inez 05/27/22 at 2100 bethanechol chloride 25 mg oral [...] 05-27-2022 naloxone (NARCAN) injection 0.4 mg oxyCODONE (5 sources) Opioid Agonist Start: 05-27-2022 End: 05-27-2022 oxyCODONE (ROXICODONE) immediate release tablet 5 mg Start: 05-27-2022 oxyCODONE (Deysi icodone) 5 MG immediate release tablet TAKE 1-2 TABS EVERY 4HRS IF NEEDED FOR MODERATE OR SEVERE PAIN UP TO 7 DAYS*MAX DAILY AMOUNT 12TABS* 05/27/2022 Active Start: 05-27-2022 End: 06-03-2022 oxyCODONE (ROXICODONE) 5 [...] 05-27-2022 Oxygen Therapy, Adult polyvinyl alcohol 0.014 ml/m l ophthalmic solution (6 sources) Start: 05-27-2022 End: 05-27-2022 1 drop, Both Eyes, Daily PRN , dry eyes, Starting on Inez 05/27/22 at 1445 polyvinyl alcoho l (Liquifilm Tears) 1.4 % ophthalmic solution Administer 1 drop into both eyes. Active promethazine hydrochloride 25 mg rectal suppository (2 sources) Phenothiazine Start: 05-27-2022 End: 05-27-2022 take 1 tablet by mouth every six hours as needed promethazine (PHENERGAN) tablet 25 mg Start: 05-27-2022 End: 05-27-2022 take 25 mg rectal route every six hours as needed promethazine (PHENERGAN) suppository 25 mg sennosides, halfway 8.6 mg oral tablet (1 source) Start: 05-27-2022 End: 05-27-2022 senna (SENOKOT) tablet 8.6 mg Sodium Chloride (1 source) Start: 05-27-2022 End: 05-27-2022 sodium chloride 0.9 % flush 10 mL traZODone hydrochloride 50 mg oral tablet (1 source) Serotonin Reuptake Inhibitor Start: 05-27-2022 End: 05-27-2022 traZODone (DESYREL) tablet 50 mg Problems Active Problems Problem Classification Problem Date Documented Date Episodic/Chronic Cataract (3 sources) Age-related nuclear cataract of left eye; Translations: [Age-related nuclear cataract, left eye] Onset: 10-13-2022 10-13-2022 Chronic Chronic kidney disease (3 sources) Chronic kidney disease stage 3; Translations: [Chronic kidney disease, stage 3] Onset: 07-13-2017 03-05-2021 Chronic Disorders of lipid metabolism (4 sources) Dyslipidemia; Translations: [Hyperlipidemia, unspecified] Onset: 07-13-2017 03-05-2021 Chronic Essential hypertension (4 sources) Essential hypertension; Translations: [Essential (primary) hypertension] Onset: 07-13-2017 03-05-2021 Chronic Heart valve disorders (1 source) Rheumatic disorders of both mitral and tricuspid valves; Translations: [RHEUMATIC D/O MITRAL TRICUSPID VALV] Onset: 10-29-2021 Chronic Malaise and fatigue (5 sources) Weakness; Translations: [Other fatigue] Onset: 10-29-2021 Episodic Menopausal disorders (1 source) Atrophic vaginitis; Translations: [Postmenopausal atrophic vaginitis] 04-10-2024 Chronic Mycoses (4 sources) Onychomycosis; Translations: [Tinea unguium] 03-20-2024 Episodic Osteoarthritis (7 sources) Osteoarthritis of left hip joint; Translations: [Unilateral primary osteoarthritis, left hip] Onset: 04-05-2017 Resolved: 07-13-2017 03-05-2021 Chronic Osteoporosis (1 source) Age-related osteoporosis without current pathological fracture; Translations: [AGE-REL OSTEOPOR W/O CURR PATH FX] Onset: 06-03-2022 Chronic Other aftercare (3 sources) Patient encounter status; Translations: [Aftercare following joint replacement surgery] Onset: 03-09-2018 03-05-2021 Chronic Other aftercare (2 sources) Aftercare following joint replacement surgery Chronic Other aftercare (2 sources) Encounter for other orthopedic aftercare Episodic Other connective tissue disease (3 sources) History of total hip arthroplasty; Translations: [Presence of left artificial hip joint] Onset: 09-13-2017 03-05-2021 Chronic Other connective tissue disease (9 sources) Presence of left artificial hip joint; Translations: [PRESENCE LEFT ARTIFICIAL HIP JOINT] Onset: 06-02-2022 Chronic Other nervous system disorders (1 source) [...] Onset: 06-03-2022 Episodic Other non-traumatic joint disorders (2 sources) Loose body in left hip Chronic Other nutritional; endocrine; and metabolic disorders (1 [...] disorder of skin, unspecified] Onset: 03-10-2021 Episodic Other skin disorders (2 sources) Seborrheic keratosis; Translations: [Other seborrheic keratosis] 03-20-2024 Episodic Other skin disorders (2 sources) Lentiginosis; Translations: [Other melanin hyperpigmentation] 03-20-2024 Episodic Other skin disorders (2 sources) Actinic keratosis; Translations: [Actinic keratosis] 03-20-2024 Episodic Pulmonary heart disease (1 source) Pulmonary hypertension, unspecified; Translations: [PULMONARY HYPERTENSION UNSPECIFIED] Onset: 06-03-2022 Chronic Residual codes; unclassified (1 source) Pain; Translations: [Pain, unspecified] Episodic Residual codes; unclassified (1 source) Pain, unspecified; Translations: [Pain, unspecified] Onset: 05-27-2022 Episodic Residual codes; unclassified (4 sources) Other specified postprocedural states; Translations: [OTH SPECIFIED POSTPROCEDURAL STATES] Onset: 06-15-2022 Episodic Retinal detachments; defects; vascular occlusion; and retinopathy (3 sources) Retinitis pigmentosa; 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] Onset: 10-13-2022 10-13-2022 Chronic Thyroid disorders (4 sources) Hypothyroidism, unspecified; Translations: [HYPOTHYROIDISM UNSPECIFIED] Onset: 03-30-2022 Chronic Unclassified (1 source) CONTACT W/AND (SUSP) EXPOS COVID-19; Translations: [CONTACT W/AND (SUSP) EXPOS COVID-19] Onset: 11-18-2021 Unclassified (1 source) Consult Onset: 03-27-2024 Viral infection (4 sources) Human papilloma virus infection; Translations: [Papillomavirus as the cause of diseases classified elsewhere] Onset: 04-10-2024 03-27-2024 Episodic Past or Other Problems Problem Classification Problem Date Documented Da te Episodic/Chronic Cardiac dysrhythmias (4 sources) Palpitations; Translations: [PALPITATIONS] Onset: 10-27-2021 Episodic Complication of device; implant or graft (15 sources) Mechanical complication of internal joint prosthesis; Translations: [Other mechanical complication of internal left hip prosthesis, initial encounter] Onset: 05-06-2022 Episodic Deficiency and other anemia (1 source) Anemia, unspecified; Translations: [ANEMIA UNSPECIFIED] Onset: 04-03-2022 Episodic Diabetes mellitus without complication (1 source) Other abnormal glucose; Translations: [OTHER ABNORMAL GLUCOSE] Onset: 04-03-2022 Episodic Nonspecific chest pain (1 source) Chest pain, unspecified; Translations: [CHEST PAIN UNSPECIFIED] Onset: 10-29-2021 Episodic Other aftercare (1 source) Patient encounter status; Translations: [Other watermelon inspector (current) drug therapy] Onset: 04-05-2017 03-05-2021 Episodic Other aftercare (2 sources) Long-term current use of drug therapy; Translations: [Other watermelon inspector (current) drug therapy] Onset: 04-05-2017 04-05-2017 Episodic Other connective tissue disease (3 sources) Thigh pain; Translations: [Pain in left thigh] Onset: 01-18-2019 03-05-2021 Episodic Other connective tissue disease (2 sources) Iliotibial band friction syndrome of left knee; Translations: [Iliotibial band syndrome, left leg] Onset: 03-09-2018 03-09-2018 Episodic Other eye disorders (3 sources) Dry eyes; Translations: [Dry eye syndrome of bilateral lacrimal glands] Onset: 10-13-2022 10-13-2022 Episodic Other lower respiratory disease (4 sources) Other forms of dyspnea; Translations: [OTHER FORMS OF DYSPNEA] Onset: 12-14-2021 Episodic Other non-traumatic joint disorders (7 sources) Pain in left hip; Translations: [PAIN IN LEFT HIP] Onset: 05-06-2022 Episodic Other skin disorders (1 source) Nonscarring hair loss, unspecified; Translations: [NONSCARRING HAIR LOSS UNSPECIFIED] Onset: 08-19-2021 Episodic Residual codes; unclassified (1 source) Insomnia, unspecified; Translations: [INSOMNIA UNSPECIFIED] Onset: 10-29-2021 Episodic Syncope (4 sources) Syncope and collapse; Translations: [SYNCOPE AND COLLAPSE] Onset: 11-14-2021 Episodic Results Test Name Value Interpretation Reference Range Facility Cytologyon 04-10-2024 Cytology Normal [facility] Comment on above: Result Comment: [facility] [address] [place] [address] Gynecologic Cytology Consultation Patient Name:BECKY PONCE:1945 (Age: 78)Gender:FTaken:4Reported:4Physician(s):Sanjuanita Whipple M.D. ([phone])Copy To: Rec. #:[id number]: #[id number] Final Cytologic Interpretation ThinPrep Pap Test (Cervical): Satisfactory for evaluation. NEGATIVE FOR INTRAEPITHELIAL LESION OR MALIGNANCY. The cytologic changes of atrophy are noted. [facility]/04/11/2024 Interpretation performed at [address], [place] [address], License number: [id number]. 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 The Pap test is primarily effective for the diagnosis and prevention of squamous cell carcinoma. Regular screening is critical for prevention. ThinPrep liquid-based slides, which meet the Precipitator Operator criteria for automated screening, have been screened by the ThinPrep Imaging System (as of 01/16/07) along with an additional manual rescreening by a hearing screener and, if indicated, by a pathologist. HIGH RISK HPV W/GENOon 04-10 HPV 31+33+35+39+45+51+5 2+56+58+59+66+68 DNA STEVE+probe Ql (Cvx) HPV SPECIMEN TYPE ThinPrep HPV 16 Negative (qualifier value) HPV 18 Negative (qualifier value) OTHER HIGH RISK HPV Positive (qualifier value) For the DNA of any or combination of the following HPV types: 31,33,35,45, 52,56,58,59,66 and 68. Normal [facility] Comment on above: Performed By: #### 7 1431-1 #### [facility] ([id number]) [address] [place] [address], FIRST FLOOR [place], [place] [id number] [place] [address] LAB ([id number]) [address] [place] [address], [address] [place] [address] No Panel Informationon 03-20 [facility] Plastic Surgery Visit Report on 10-20-2022 Plastic Surgery Visit Report [facility]astic Re[facility]ive Surgery [address], [address] [place], [place] [address] OFFICE VISIT Date of Service: 10/20/22 MR#: [id number] Acct: [id number] Name: BECKY PONCE Rep #: [id number] : 1945 Provider: Dr. Gertrudis grimaldo MD Age/Sex: 76/F Location: [facility] Status: Signed Intake Vital Signs 10/20/22 13:35 Height 5 ft 4 in Weight: 140 lb 6 oz BMI 24.0 Body Surface Area 1.68 BP 157/75 H Blood Pressure Location Rt brachial Position Sitting Respiration 16 Pulse 85 Pulse Source Monitor Temp 97.4 F L Temp Source Temporal Pulse Oximetry (%) 97 Oxygen Delivery Method room air Intake Visit Reasons: CONSULT-LIPOSUCTION [place] Required: No Accompanied by: None Is patient [...] 10/20/22 [History Confirmed 10/20/22] Post menopausal: Yes [facility] Medical History (Updated 10/20/22 @ 15:08 by [...] Acute (2) Weight gain: Status: Acute Plan Becky is not a candidate for liposuction or [...] her active lifestyle. 10/20/22 1510 Date Gertrudis Encarnacion MD Cosigner Signature: Date (if applicable) CC: Normal [facility] CBC AUTO DIFFon 06-01-2022 BASO # 0.0 103/ul Normal 0.0-0.1 [facility] Comment on above: Performed By: #### F T3, TSH, T4 #### [facility] [address] [address] [address] Abelardo Barrett Basophils/100 WBC (Bld) 0.4 % Normal 0.2-2.0 [facility] Comment on above: Performed By: #### F T3, TSH, T4 #### [facility] [address] [address] [address] Abelardo Barrett EO # 0.1 103/ul Normal 0.0-0.7 [facility] Comment on above: Performed By: #### F T3, TSH, T4 #### [facility] [address] [address] [address] Abelardo Barrett Eosinophils/100 WBC (Bld) 2.3 % Normal 0.9-7.0 [facility] Comment on above: Performed By: #### F T3, TSH, T4 #### [facility] [address] [place] [address] Dr. Abelardo Barrett Erythrocyte distribution width (RBC) [Ratio] 13.1 % Normal 11.0-15.0 [facility] Comment on above: Performed By: #### F T3, TSH, T4 #### [facility] [address] [place] [address] Dr. Abelardo Barrett Hematocrit (Bld) [Volume fraction] 23.4 % Critically low 36.0-48.0 [facility] Comment on above: Performed By: #### F T3, TSH, T4 #### [facility] [address] [address] [address] Abelardo Barrett Hemoglobin (Bld) [Mass/Vol] 7.7 g/dL Critically low 12.0-16.0 [facility] Comment on above: Performed By: #### F T3, TSH, T4 #### [facility] [address] [place] [address] Dr. Abelardo Barrett IG # 0.02 10e3/ul Normal 0.00-0.03 [facility] Comment on above: Performed By: #### F T3, TSH, T4 #### [facility] [address] [place] [address] Dr. Abelardo Barrett IG % 0.4 % Normal 0.0-0.5 [facility] Comment on above: Performed By: #### F T3, TSH, T4 #### [facility] [address] [place] [address] Dr. Abelardo Barrett LYMPH # 0.9 103/ul Critically low 1.2-3.8 [facility] Comment on above: Performed By: #### F T3, TSH, T4 #### [facility] [address] [place] [address] Dr. Abelardo Barrett Lymphocytes/100 WBC (Bld) 16.5 % Critically low 20.5-60.0 [facility] Comment on above: Performed By: #### F T3, TSH, T4 #### [facility] [address] [place] [address] Dr. Abelardo Barrett MANUAL DIFF REQ NO Normal [facility] Comment on above: Performed By: #### F T3, TSH, T4 #### [facility] [address] [place] [address] Dr. Abelardo Barrett MCH (RBC) [Entitic mass] 30.8 pg Normal 26.7-34.0 [facility] Comment on above: Performed By: #### F T3, TSH, T4 #### [facility] [address] [place] [address] Dr. Abelardo Barrett MCHC (RBC) [Mass/Vol] 32.9 g/dL Normal 29.9-35.2 [facility] Comment on above: Performed By: #### F T3, TSH, T4 #### [facility] [address] [place] [address] Dr. Abelardo Barrett MCV (RBC) [Entitic vol] 93.6 fL Normal 81.0-99.0 [facility] Comment on above: Performed By: #### F T3, TSH, T4 #### [facility] [address] [place] [address] Dr. Abelardo Barrett MONO # 1.0 103/ul Critically high 0.3-0.8 [facility] Comment on above: Performed By: #### F T3, TSH, T4 #### [facility] [address] [place] [address] Dr. Abelardo Barrett Monocytes/100 WBC (Bld) 17.1 % Critically high 1.7-12.0 [facility] Comment on above: Performed By: #### F T3, TSH, T4 #### [facility] [address] [place], [place] [address] Dr. Abelardo Barrett NEUT # 3.5 103/ul Normal 1.4-6.5 [facility] Comment on above: Performed By: #### F T3, TSH, T4 #### [facility] [address] [place] [address] Dr. Abelardo Barrett Neutrophils/100 WBC (Bld) 63.3 % Normal 43.0-75.0 [facility] Comment on above: Performed By: #### F T3, TSH, T4 #### [facility] [address] [place] [address] Dr. Abelardo Barrett Platelet mean volume (Bld) [Entitic vol] 8.8 fL Critically low 9.5-13.5 [facility] Comment on above: Performed By: #### F T3, TSH, T4 #### [facility] [address] [place] [address] Dr. Abelardo Barrett PLT 255 103/ul Normal 150-450 [facility] Comment on above: Performed By: #### F T3, TSH, T4 #### [facility] [address] [place] [address] Dr. Abelardo Barrett RBC 2.50 106/ul Critically low 4.20-5.40 [facility] Comment on above: Performed By: #### F T3, TSH, T4 #### [facility] [address] [place] [place] [address] Dr. Abelardo Barrett WBC 5.6 103/ul Normal 4.0-11.0 [facility] Comment on above: Performed By: #### F T3, TSH, T4 #### [facility] [address] [place] [address] Dr. Abelardo Barrett ER URINE PROFILEon 3 Bilirubin Ql (U) Negative Normal NEGATIVE [facility] Comment on above: Performed By: #### F T3, TSH, T4 #### [facility] [address] [place] [address] Dr. Abelardo Barrett Clarity (U) CLEAR Normal CLEAR [facility] Comment on above: Performed By: #### F T3, TSH, T4 #### [facility] [address] [address] [address] Abelardo Barrett Color (U) LT. YELLOW Normal YELLOW [facility] Comment on above: Performed By: #### F T3, TSH, T4 #### [facility] [address] [place] [address] Dr. Abelardo BOWMAN A micrscopic examina tion will be performed if indicated. Normal [facility] Comment on above: Performed By: #### F T3, TSH, T4 #### [facility] [address] [place] [address] Dr. Abelardo Barrett Glucose Ql (U) Negative Normal NEGATIVE [facility] Comment on above: Performed By: #### F T3, TSH, T4 #### [facility] [address] [place] [address] Dr. Abelardo Barrett Hemoglobin Ql (U) Negative Normal NEGATIVE [facility] Comment on above: Performed By: #### F T3, TSH, T4 #### [facility] [address] [place] [address] Dr. Abelardo Barrett Ketones Ql (U) Negative Normal NEGATIVE [facility] Comment on above: Performed By: #### F T3, TSH, T4 #### [facility] [address] [place] [address] Dr. Abelardo Barrett LEUKOCYTES TRACE Abnormal NEGATIVE [facility] Comment on above: Performed By: #### F T3, TSH, T4 #### [facility] [address] [place] [address] Dr. Abelardo Barrett Nitrite Ql (U) Negative Normal NEGATIVE [facility] Comment on above: Performed By: #### F T3, TSH, T4 #### [facility] [address] [place] [address] Dr. Abelardo Barrett pH (U) 6.5 [pH] Normal 5-9 [facility] Comment on above: Performed By: #### F T3, TSH, T4 #### [facility] [address] [place] [address] Dr. Abelardo Barrett SPEC GRAVITY <=1.005 Abnormal 1.005-<=1.02 5 [facility] Comment on above: Performed By: #### F T3, TSH, T4 #### [facility] [address] [place] [address] Dr. Abelardo Barrett UA PROTEIN Negative Normal NEGATIVE/ TRACE [facility] Comment on above: Performed By: #### F T3, TSH, T4 #### [facility] [address] [place] [address] Dr. Abelardo Barrett UR MICRO IND INDICATED Normal [facility] Comment on above: Performed By: #### F T3, TSH, T4 #### [facility] [address] [place] [address] Dr. Abelardo Barrett Urobilinogen Qn (U) 0.2 {Erik'U}/dL Normal 0.2 - 1. 0 [facility] Comment on above: Performed By: #### F T3, TSH, T4 #### [facility] [address] [place] [address] Dr. Abelardo Barrett PROF 14(COMP METB)on 023 Albumin [Mass/Vol] 2.2 g/dL Critically low 3.4-5.0 [facility] Comment on above: Performed By: #### F T3, TSH, T4 #### [facility] [address] [place] [address] Dr. Abelardo Barrett Albumin/Globulin [Mass ratio] 0.6 {ratio} Normal [facility] Comment on above: Performed By: #### F T3, TSH, T4 #### [facility] [address] [place] [address] Dr. Abelardo Barrett ALP [Catalytic activity/Vol] 49 U/L Normal 46-116 [facility] Comment on above: Performed By: #### F T3, TSH, T4 #### [facility] [address] [place] [address] Dr. Abelardo Barrett ALT [Catalytic activity/Vol] 36 U/L Normal 14-59 [facility] Comment on above: Performed By: #### F T3, TSH, T4 #### [facility] [address] [place] [address] Dr. Abelardo Barrett Anion gap [Moles/Vol] 12.2 mmol/L Normal [facility] Comment on above: Performed By: #### F T3, TSH, T4 #### [facility] [address] [address] [address] Abelardo Barrett AST [Catalytic activity/Vol] 43 U/L Critically high 15-37 [facility] Comment on above: Performed By: #### F T3, TSH, T4 #### [facility] [address] [address] [address] Abelardo Barrett Bilirubin [Mass/Vol] 0.7 mg/dL Normal 0.2-1.0 [facility] Comment on above: Performed By: #### F T3, TSH, T4 #### [facility] [address] [place] [address] Dr. Abelardo Barrett Calcium [Mass/Vol] 11.0 mg/dL Critically high 8.5-10.1 [facility] Comment on above: Performed By: #### F T3, TSH, T4 #### [facility] [address] [place] [address] Dr. Abelardo Barrett Chloride [Moles/Vol] 98 mmol/L Normal 98-107 [facility] Comment on above: Performed By: #### F T3, TSH, T4 #### [facility] [address] [place] [address] Dr. Abelardo Barrett CO2 [Moles/Vol] 31.7 mmol/L Normal 21.0-32.0 [facility] Comment on above: Performed By: #### F T3, TSH, T4 #### [facility] [address] [place] [address] Dr. Abelardo Barrett Creatinine [Mass/Vol] 1.17 mg/dL Critically high 0.55-1.02 [facility] Comment on above: Performed By: #### F T3, TSH, T4 #### [facility] [address] [place] [address] Dr. Abelardo Barrett EGFR-AF WALLISIAN 55 mL/min/1.73m2 Critically low >=60 [facility] Comment on above: Performed By: #### F T3, TSH, T4 #### [facility] [address] [place] [address] Dr. Abelardo Barrett EGFR-NON AF WALLISIAN 45 mL/min/1.73m2 Critically low >=60 [facility] Comment on above: Performed By: #### F T3, TSH, T4 #### [facility] [address] [address] [address] Abelardo Barrett Globulin (S) [Mass/Vol] 3.4 g/dL Normal [facility] Comment on above: Performed By: #### F T3, TSH, T4 #### [facility] [address] [address] [address] Abelardo Barrett Glucose [Mass/Vol] 107 mg/dL Critically high 74-106 [facility] Comment on above: Performed By: #### F T3, TSH, T4 #### [facility] [address] [place] [address] Dr. Abelardo Barrett Potassium [Moles/Vol] 4.9 mmol/L Normal 3.5-5.1 [facility] Comment on above: Performed By: #### F T3, TSH, T4 #### [facility] [address] [address] [address] Abelardo Barrett Protein [Mass/Vol] 5.6 g/dL Critically low 6.4-8.2 [facility] Comment on above: Performed By: #### F T3, TSH, T4 #### [facility] [address] [place] [address] Dr. Abelardo Barrett Sodium [Moles/Vol] 137 mmol/L Normal 136-145 [facility] Comment on above: Performed By: #### F T3, TSH, T4 #### [facility] [address] [place] [address] Dr. Abelardo Barrett Urea nitrogen [Mass/Vol] 27.0 mg/dL Critically high 7.0-18.0 [facility] Comment on above: Performed By: #### F T3, TSH, T4 #### [facility] [address] [address] [address] Abelardo Barrett Urea nitrogen/Creatinine [Mass ratio] 23.1 mg/mg [facility] Comment on above: Performed By: #### F T3, TSH, T4 #### [facility] [address] [place] [address] Dr. Abelardo Barrett URINE MICROSCOPIC ONLYon BACTERIA TRACE Abnormal NONE SEEN [facility] Comment on above: Performed By: #### F T3, TSH, T4 #### [facility] [address] [place] [address] Dr. Abelardo Barrett Bacteria identified Cx Nom (U) NOT INDICATED Normal [facility] Comment on above: Performed By: #### F T3, TSH, T4 #### [facility] [address] [place] [address] Dr. Abelardo Barrett CAST NONE SEEN Normal NONE SEEN [facility] Comment on above: Performed By: #### F T3, TSH, T4 #### [facility] [address] [place] [address] Dr. Abelardo Barrett Crystals LM Nom (Urine sed) NONE SEEN Normal NONE SEEN [facility] Comment on above: Performed By: #### F T3, TSH, T4 #### [facility] [address] [place] [address] Dr. Abelardo Barrett Epithelial cells LM Ql (Urine sed) RARE Normal NONE SEEN /RARE [facility] Comment on above: Performed By: #### F T3, TSH, T4 #### [facility] [address] [place] [address] Dr. Abelardo Barrett MUCOUS NONE SEEN Normal NONE SEEN [facility] Comment on above: Performed By: #### F T3, TSH, T4 #### [facility] [address] [place] [address] Dr. Abelardo Barrett RBC 0-2 Normal 0-2 [facility] Comment on above: Performed By: #### F T3, TSH, T4 #### [facility] [address] [place] [address] Dr. Abelardo Barrett WBC 0-2 Abnormal NONE SEEN [facility] Comment on above: Performed By: #### F T3, TSH, T4 #### [facility] [address] [place] [address] Dr. Abelardo Barrett Bacteria Spec Anaerobe Culto n 05-27-2022 Bacteria identified Anaer cx Nom (Unsp spec) Culture, Anaerobic Status = F No anaerobes grown after 4 days. Normal [facility] Comment on above: Performed By: #### 1 988-5 #### [facility] [address] [place] [address] Bacteria identified Anaer cx Nom (Unsp spec) Culture, Anaerobic Status = F No anaerobes grown after 4 days. Normal [facility] Comment on above: Performed By: #### 1 988-5 #### [facility] [address] [place] [address] Bacteria Tiss Culton 023 Bacteria identified Cx [...] to a previously preliminary verified report. Normal [facility] Comment on above: Performed By: #### 1 988-5 #### [facility] [address] [place] [address] Bacteria identified Cx Nom (Tiss) Culture, Tissue [...] to a previously preliminary verified report. Normal [facility] Comment on above: Performed By: #### 1 988-5 #### [facility] [address] [place] [address] Blood type and Indirect anti body screen panel (Bld)on 05-27-2022 ABO group Nom (Bld) O Normal [facility] Comment on above: Performed By: #### 3 4532-2 #### [facility] [address] [place] [address] Rh Type Negative Normal [facility] Comment on above: Performed By: #### 3 4532-2 #### [facility] [address] [place] [address] ABO group Nom (Bld) O [facility] Blood group antibody screen Ql Negative [facility] Nom (Bld) Negative [facility] Fungus Skin Culton Fungus identified Cx Nom (Skin) Culture, Fungus Status = F No growth at 4 weeks Normal [facility] Comment on above: Performed By: #### 3 4532-2 #### [facility] [address] [place] [address] Fungus identified Cx Nom (Skin) Culture, Fungus Status = F No growth at 4 weeks Normal [facility] Comment on above: Performed By: #### 1 988-5 #### [facility] [address] [place] [address] Glucose Auto test strip (Bld ) [Mass/Vol]on 05-27-2022 Glucose [Mass/Vol] 98 mg/dL Normal 70-99 [facility] Comment on above: Performed By: #### 2 340-8 #### [facility] [address] [place] [address] Glucose [Mass/Vol] 98 mg/dL 70 - 99 mg/dL [facility] Interpretation and review of laboratory results Normal [facility] Mycobacterium Spec Culton Mycobacterium sp identified Org specific cx Nom (Unsp spec) Culture AFB Status = C No growth at 8 weeks AFB Stain Status = F No acid fast bacilli seen Normal [facility] Comment on above: Performed By: #### 1 988-5 #### [facility] [address] [place] [address] Mycobacterium sp identified Org specific cx Nom (Unsp spec) Culture AFB Status = C No growth at 8 weeks AFB Stain Status = F No acid fast bacilli seen Normal [facility] Comment on above: Performed By: #### 5 43-9 #### [facility] [address] [place] [address] Performed By: #### 1 988-5 #### [facility] [address] [facility] [place] [address] Pathology studyon 05-27-2022 Pathology study Left hip tissue, bio psy: Fibrous tissue with degenerative changes. No perivascular lymphocytic inflammation is present. A. Hip, Left, R/O perivascular lymphocytic infiltrates: Received in formalin labeled with the patient's name and left hip is a 2 x 2 x 0.5 cm fragment of gupta-pink to gutpa-yellow fibroadipose tissue. Upon sectioning the cut surface is gupta-pink to gupta-yellow, rubbery and grossly unremarkable. The specimen is submitted entirely in block A1. (AB) Any immunohistochemistry or special stain used in the interpretation of this case was performed at [facility]. These tests have not been [...] was performed at [facility], [address] [place], [place] [id number]. Microscopic examination was performed. Normal [facility] Comment on above: Performed By: #### 1 1526-1 #### [facility] [address] [place] [address] [facility] [address] [place] [address] SARS-CoV-2 (COVID-19) RNA NA A+probe Ql (Resp)on 05-27-2022 Interpretation and review of laboratory results Normal [facility] SARS-CoV-2 (COVID-19) RdRp gene STEVE+probe Ql (Resp) Not detected Not Detected [facility] SARS-CoV-2 RNA Resp Ql STEVE+p robeon 05-27-2022 SARS-CoV-2 (COVID-19) RNA STEVE+probe Ql (Resp) Not detected Normal Not Detected [facility] Comment on above: Performed By: #### 9 4500-6 #### [facility] [address] [facility] [place] [address] XR FLUORO UP TO 1 HOUR (STAT ISTICS)(NO REPORT)on 05-27-2022 XR FLUORO UP TO 1 HOUR (STATISTICS)(NO REPORT) This order has been auto-finalized and does not contain a result. Normal [facility] XR Fluoro Up To 1 Hour [...] Self Edit Transcribed Date: 05/27/2022 14:17 Normal [facility] XR Pelvis 1-2 Viewson 2022 No acute findings. 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 -------- FINAL REPORT -------- Dictated By: Miguelangel Maritnez Dictated Date: 05/27/2022 14:17 Assigned Physician: Miguelangel [...] By: Self Edit Transcribed Date: 05/27/2022 14:17 [facility] Study observation (narrative) [facility] XR Pelvis 1-2 ViewsOrdered B y: Miguelangel Martinez on 05-27-2022 [employer] Work Phone: Blood type and Indirect anti body screen panel (Bld)on 05-17-2022 ABO group Nom (Bld) O Normal [facility] Comment on above: Performed By: #### 3 4532-2 #### [facility] [address] [place] [address] Rh Type Negative Normal [facility] Comment on above: Performed By: #### 3 4532-2 #### [facility] [address] [place] [address] CRP [Mass/Vol]on 05-17-2022 Anion gap [Moles/Vol] 11 mmol/L Normal 6-18 [facility] Comment on above: Order Comment: Sampl e received unlabeled or with name discrepancy. The Physician, Clinican or authorized designee has authorized the release of the results and assumes responsibility for sample identification. Performed By: #### 1 988-5 #### [facility] [address] [place] [address] Calcium [Mass/Vol] 10.9 mg/dL High 8.9-10.3 [facility] Comment on above: Order Comment: Sampl e received unlabeled or with name discrepancy. The Physician, Clinican or authorized designee has authorized the release of the results and assumes responsibility for sample identification. Performed By: #### 1 988-5 #### [facility] [address] [place] [address] Chloride [Moles/Vol] 102 mmol/L Normal 98-107 [facility] Comment on above: Order Comment: Sampl e received unlabeled or with name discrepancy. The Physician, Clinican or authorized designee has authorized the release of the results and assumes responsibility for sample identification. Performed By: #### 1 988-5 #### [facility] [address] [place] [address] CO2 [Moles/Vol] 27 mmol/L Normal 22-32 [facility] Comment on above: Order Comment: Sampl e received unlabeled or with name discrepancy. The Physician, Clinican or authorized designee has authorized the release of the results and assumes responsibility for sample identification. Performed By: #### 1 988-5 #### [facility] [address] [place] [address] Creatinine [Mass/Vol] 0.92 mg/dL Normal 0.60-1.30 [facility] Comment on above: Order Comment: Sampl e received unlabeled or with name discrepancy. The Physician, Clinican or authorized designee has authorized the release of the results and assumes responsibility for sample identification. Performed By: #### 1 988-5 #### [facility] [address] [place] [address] GFR/1.73 sq M.predicted among non-blacks MDRD (S/P/Bld) [Vol rate/Area] 65 mL/min/{1.73_m2} Normal >=60 [facility] Comment on above: Order Comment: Sampl e received unlabeled or with name discrepancy. The Physician, Clinican or authorized designee has authorized the release of the results and assumes responsibility for sample identification. Result Comment: Effe ctive February 07, 2022, calculation based on the?Chronic Kidney Disease Epidemiology Collaboration (CKD-EPI) equation refit?without adjustment for race. Performed By: #### 1 988-5 #### [facility] [address] [place] [address] Glucose [Mass/Vol] 86 mg/dL Normal 70-99 [facility] Comment on above: Order Comment: Sampl e received unlabeled or with name discrepancy. The Physician, Clinican or authorized designee has authorized the release of the results and assumes responsibility for sample identification. Performed By: #### 1 988-5 #### [facility] [address] [place] [address] Potassium [Moles/Vol] 4.6 mmol/L Normal 3.6-5.1 [facility] Comment on above: Order Comment: Sampl e received unlabeled or with name discrepancy. The Physician, Clinican or authorized designee has authorized the release of the results and assumes responsibility for sample identification. Performed By: #### 1 988-5 #### [facility] [address] [place] [address] Sodium [Moles/Vol] 140 mmol/L Normal 136-145 [facility] Comment on above: Order Comment: Sampl e received unlabeled or with name discrepancy. The Physician, Clinican or authorized designee has authorized the release of the results and assumes responsibility for sample identification. Performed By: #### 1 988-5 #### [facility] [address] [place] [address] Urea nitrogen [Mass/Vol] 36 mg/dL High 8-20 [facility] Comment on above: Order Comment: Sampl e received unlabeled or with name discrepancy. The Physician, Clinican or authorized designee has authorized the release of the results and assumes responsibility for sample identification. Performed By: #### 1 988-5 #### [facility] [address] [place] [address] Urea nitrogen/Creatinine [Mass ratio] 39.1 mg/mg High 12.0-20.0 [facility] Comment on above: Order Comment: Sampl e received unlabeled or with name discrepancy. The Physician, Clinican or authorized designee has authorized the release of the results and assumes responsibility for sample identification. Performed By: #### 1 988-5 #### [facility] [address] [place] [address] Hemogram and platelets WO di fferential panel (Bld)on 05-17-2022 Sed Rate 18 mm/hr Normal 0-20 [facility] Comment on above: Performed By: #### 2 4317-0 #### [facility] [address] [place] [address] MG MAMM SCREEN 3D YONI CADon 04-07-2022 MG MAMM SCREEN 3D YONI CAD Patient: BECKY PONCE Exam Date: 04/07/2022 : 1945 Gender:F Ordering : DR KERVIN OSORIO Admission #: [id number] Family : DR DORCAS AGUIRRE . Order #: [id number] CLICK HERE TO VIEW EXAM RADIOLOGY REPORT [...] Treatments None Family Cancers None LOCATION: [facility] BREAST COMPOSITION: Heterogeneously dense,which may obscure [...] LUMP SHOULD BE BIOPSIED. Dictated by: Saranya Nice MD on 04/07/2022 at 10:58 Approved by: Saranya Nice MD on 04/07/2022 at 11:00 Normal [facility] CBC AUTO DIFFon 03-30-2022 BASO # 0.0 103/ul Normal 0.0-0.1 [facility] Comment on above: Performed By: #### F T3, TSH, T4 #### [facility] [address] [address] [address] Abelardo Barrett Basophils/100 WBC (Bld) 0.9 % Normal 0.2-2.0 [facility] Comment on above: Performed By: #### F T3, TSH, T4 #### [facility] [address] [address] [address] Abelardo Barrett EO # 0.1 103/ul Normal 0.0-0.7 [facility] Comment on above: Performed By: #### F T3, TSH, T4 #### [facility] [address] [place], [place] [address] Dr. Abelardo Barrett Eosinophils/100 WBC (Bld) 2.0 % Normal 0.9-7.0 [facility] Comment on above: Performed By: #### F T3, TSH, T4 #### [facility] [address] [address] [address] Abelardo Barrett Erythrocyte distribution width (RBC) [Ratio] 12.5 % Normal 11.0-15.0 [facility] Comment on above: Performed By: #### F T3, TSH, T4 #### [facility] [address] [place] [address] Dr. Abelardo Barrett Hematocrit (Bld) [Volume fraction] 37.9 % Normal 36.0-48.0 [facility] Comment on above: Performed By: #### F T3, TSH, T4 #### [facility] [address] [place] [address] Dr. Abelardo Barrett Hemoglobin (Bld) [Mass/Vol] 12.6 g/dL Normal 12.0-16.0 [facility] Comment on above: Performed By: #### F T3, TSH, T4 #### [facility] [address] [place] [address] Dr. Abelardo Barrett IG # 0.01 10e3/ul Normal 0.00-0.03 [facility] Comment on above: Performed By: #### F T3, TSH, T4 #### [facility] [address] [place] [address] Dr. Abelardo Barrett IG % 0.2 % Normal 0.0-0.5 [facility] Comment on above: Performed By: #### F T3, TSH, T4 #### [facility] [address] [place] [address] Dr. Abelardo Barrett LYMPH # 1.2 103/ul Normal 1.2-3.8 [facility] Comment on above: Performed By: #### F T3, TSH, T4 #### [facility] [address] [place] [address] Dr. Abelardo Barrett Lymphocytes/100 WBC (Bld) 26.5 % Normal 20.5-60.0 [facility] Comment on above: Performed By: #### F T3, TSH, T4 #### [facility] [address] [place] [address] Dr. Abelardo Barrett MANUAL DIFF REQ NO Normal [facility] Comment on above: Performed By: #### F T3, TSH, T4 #### [facility] [address] [place] [address] Dr. Abelardo Barrett MCH (RBC) [Entitic mass] 29.9 pg Normal 26.7-34.0 [facility] Comment on above: Performed By: #### F T3, TSH, T4 #### [facility] [address] [place] [address] Dr. Abelardo Barrett MCHC (RBC) [Mass/Vol] 33.2 g/dL Normal 29.9-35.2 [facility] Comment on above: Performed By: #### F T3, TSH, T4 #### [facility] [address] [place] [address] Dr. Abelardo Barrett MCV (RBC) [Entitic vol] 90.0 fL Normal 81.0-99.0 [facility] Comment on above: Performed By: #### F T3, TSH, T4 #### [facility] [address] [place] [address] Dr. Abelardo Barrett MONO # 0.5 103/ul Normal 0.3-0.8 [facility] Comment on above: Performed By: #### F T3, TSH, T4 #### [facility] [address] [place] [address] Dr. Abelardo Barrett Monocytes/100 WBC (Bld) 10.1 % Normal 1.7-12.0 [facility] Comment on above: Performed By: #### F T3, TSH, T4 #### [facility] [address] [place] [address] Dr. Abelardo Barrett NEUT # 2.8 103/ul Normal 1.4-6.5 [facility] Comment on above: Performed By: #### F T3, TSH, T4 #### [facility] [address] [place] [address] Dr. Abelardo Barrett Neutrophils/100 WBC (Bld) 60.3 % Normal 43.0-75.0 [facility] Comment on above: Performed By: #### F T3, TSH, T4 #### [facility] [address] [place] [address] Dr. Abelardo Barrett Platelet mean volume (Bld) [Entitic vol] 8.6 fL Critically low 9.5-13.5 [facility] Comment on above: Performed By: #### F T3, TSH, T4 #### [facility] [address] [address] [address] Abelardo Barrett PLT 248 103/ul Normal 150-450 [facility] Comment on above: Performed By: #### F T3, TSH, T4 #### [facility] [address] [address] [address] Abelardo Barrett RBC 4.21 106/ul Normal 4.20-5.40 [facility] Comment on above: Performed By: #### F T3, TSH, T4 #### [facility] [address] [address] [address] Abelardo Barrett WBC 4.6 103/ul Normal 4.0-11.0 [facility] Comment on above: Performed By: #### F T3, TSH, T4 #### [facility] [address] [place] [address] Dr. Abelardo Barrett FREE THYROXINE INDEX T7on FTI 2.73 Normal 1.30-4.50 [facility] Comment on above: Performed By: #### C MP, LIPID #### [facility] [address] [address] [address] Abelardo Barrett T3U 35.0 % Normal 30.0-39.0 [facility] Comment on above: Performed By: #### C MP, LIPID #### [facility] [address] [place] [address] Dr. Abelardo Barrett T4 [Mass/Vol] 7.80 ug/dL Normal 4.80-13.90 [facility] Comment on above: Performed By: #### C MP, LIPID #### [facility] [address] [place] [address] Dr. Abelardo Barrett GLYCOHEMOGLOBIN A1Con 2021 ADA RECOMMENDATION SEE BELOW Normal [facility] Comment on above: Result Comment: ADA RECOMMENDED LIMIT 4.0 - 6.0 ADA THERAPEUTIC TARGET < 7.0 ACTION SUGGESTED > 7.0 Performed By: #### C MP, LIPID #### [facility] [address] [place] [address] Dr. Abelardo Barrett Glucose [Mass/Vol] 123 mg/dL Normal [facility] Comment on above: Performed By: #### C MP, LIPID #### [facility] [address] [address] [address] Abelardo Barrett HbA1c (Bld) [Mass fraction] 5.9 % Normal 4.5-6.2 [facility] Comment on above: Performed By: #### C MP, LIPID #### [facility] [id number] Abelardo Barrett IRONon 03-30-2022 Iron [Mass/Vol] 94.0 ug/dL Normal 50.0-170.0 [facility] Comment on above: Performed By: #### C MP, LIPID #### [facility] [address] [place] [address] Dr. Abelardo Barrett LIPID PROFILEon 03-30-2022 CHOL-HDL RATIO NORM SEE BELOW Normal [facility] Comment on above: Result Comment: 3.3 - 4.4 LOW RISK 4.4 - 7.1 AVERAGE RISK 7.1 - 11.0 MODERATE RISK >11.0 HIGH RISK Performed By: #### C MP, LIPID #### [facility] [address] [place] [address] Dr. Abelardo Barrett Cholesterol [Mass/Vol] 186 mg/dL Normal <=200 [facility] Comment on above: Performed By: #### C MP, LIPID #### [facility] [address] [place] [address] Dr. Abelardo Barrett Cholesterol in HDL [Mass/Vol] 86 mg/dL Critically high 40-60 [facility] Comment on above: Performed By: #### C MP, LIPID #### [facility] [id number] Abelardo Barrett Cholesterol in LDL [Mass/Vol] 88.8 mg/dL Normal [facility] Comment on above: Performed By: #### C MP, LIPID #### [facility] [address] [place] [address] Dr. Abelardo Barrett Cholesterol.total/C holesterol in HDL [Mass ratio] 2.2 {ratio} Normal [facility] Comment on above: Performed By: #### C MP, LIPID #### [facility] [address] [address] [address] Abelardo Barrett HDL NORMAL > or = 60 mg/dl - LO W CARDIOVASCULAR RISK <40 mg/dl - HIGH CARDIOVASCULAR RISK Normal [facility] Comment on above: Performed By: #### C MP, LIPID #### [facility] [address] [address] [address] Abelardo Barrett LDL CALC NORMAL SEE BELOW Normal [facility] Comment on above: Result Comment: <100 mg/dl OPTIMAL 100 - 129 mg/dl NEAR OR ABOVE OPTIMAL 130 - 159 mg/dl BORDERLINE HIGH 160 - 189 mg/dl HIGH >190 mg/dl VERY HIGH Performed By: #### C MP, LIPID #### [facility] [address] [place] [address] Dr. Abelardo Barrett Triglyceride [Mass/Vol] 56 mg/dL Normal <=150 [facility] Comment on above: Performed By: #### C MP, LIPID #### [facility] [address] [place] [address] Dr. Abelardo Barrett VLDL CALC 11.2 mg/dL Normal [facility] Comment on above: Performed By: #### C MP, LIPID #### [facility] [address] [place] [address] Dr. Abelardo Barrett PROF 14(COMP METB)on 022 Albumin [Mass/Vol] 3.7 g/dL Normal 3.4-5.0 [facility] Comment on above: Performed By: #### C MP, LIPID #### [facility] [address] [place] [address] Dr. Abelardo Barrett Albumin/Globulin [Mass ratio] 1.0 {ratio} Normal [facility] Comment on above: Performed By: #### C MP, LIPID #### [facility] [address] [place] [address] Dr. Abelardo Barrett ALP [Catalytic activity/Vol] 59 U/L Normal 46-116 [facility] Comment on above: Performed By: #### C MP, LIPID #### [facility] [address] [address] [address] Abelardo Barrett ALT [Catalytic activity/Vol] 30 U/L Normal 14-59 [facility] Comment on above: Performed By: #### C MP, LIPID #### [facility] [address] [address] [address] Abelardo Barrett Anion gap [Moles/Vol] 9.0 mmol/L Normal [facility] Comment on above: Performed By: #### C MP, LIPID #### [facility] [address] [address] [address] Abelardo Barrett AST [Catalytic activity/Vol] 17 U/L Normal 15-37 [facility] Comment on above: Performed By: #### C MP, LIPID #### [facility] [address] [place] [address] Dr. Abelardo Barrett Bilirubin [Mass/Vol] 0.6 mg/dL Normal 0.2-1.0 [facility] Comment on above: Performed By: #### C MP, LIPID #### [facility] [address] [place] [address] Dr. Abelardo Barrett Calcium [Mass/Vol] 9.1 mg/dL Normal 8.5-10.1 [facility] Comment on above: Performed By: #### C MP, LIPID #### [facility] [address] [address] [address] Abelardo Barrett Chloride [Moles/Vol] 104 mmol/L Normal 98-107 [facility] Comment on above: Performed By: #### C MP, LIPID #### [facility] [address] [place] [address] Dr. Abelardo Barrett CO2 [Moles/Vol] 30.6 mmol/L Normal 21.0-32.0 [facility] Comment on above: Performed By: #### C MP, LIPID #### [facility] [address] [address] [address] Abelardo Barrett Creatinine [Mass/Vol] 0.85 mg/dL Normal 0.55-1.02 [facility] Comment on above: Performed By: #### C MP, LIPID #### [facility] [address] [address] [address] Abelardo Barrett EGFR-AF WALLISIAN >60 Normal >=60 [facility] Comment on above: Performed By: #### C MP, LIPID #### [facility] [address] [place] [address] Dr. Abelardo Barrett EGFR-NON AF WALLISIAN >60 Normal >=60 [facility] Comment on above: Performed By: #### C MP, LIPID #### [facility] [address] [address] [address] Abelardo Barrett Globulin (S) [Mass/Vol] 3.6 g/dL Normal [facility] Comment on above: Performed By: #### C MP, LIPID #### [facility] [address] [address] [address] Abelardo Barrett Glucose [Mass/Vol] 93 mg/dL Normal 74-106 [facility] Comment on above: Performed By: #### C MP, LIPID #### [facility] [address] [address] [address] Abelardo Barrett Potassium [Moles/Vol] 4.6 mmol/L Normal 3.5-5.1 [facility] Comment on above: Performed By: #### C MP, LIPID #### [facility] [address] [place] [address] Dr. Abelardo Barrett Protein [Mass/Vol] 7.3 g/dL Normal 6.4-8.2 [facility] Comment on above: Performed By: #### C MP, LIPID #### [facility] [address] [place] [address] Dr. Abelardo Barrett Sodium [Moles/Vol] 139 mmol/L Normal 136-145 [facility] Comment on above: Performed By: #### C MP, LIPID #### [facility] [address] [address] [address] Abelardo Barrett Urea nitrogen [Mass/Vol] 33.0 mg/dL Critically high 7.0-18.0 [facility] Comment on above: Performed By: #### C MP, LIPID #### [facility] [address] [address] [address] Abelardo Barrett Urea nitrogen/Creatinine [Mass ratio] 38.8 mg/mg Normal [facility] Comment on above: Performed By: #### C MP, LIPID #### [facility] [address] [place] [address] Dr. Abelardo Barrett TSHon 03-30-2022 TSH Qn m[IU]/L Critically low 0.358-3.740 [facility] Comment on above: Performed By: #### C MP, LIPID #### [facility] [address] [place] [address] Dr. Abelardo Barrett T4 LABCORPon 01-16-2022 T4 [Mass/Vol] 8.3 ug/dL Normal 4.5-12.0 [facility] Comment on above: Performed By: #### C MP, LIPID #### [facility] [address] [place] [address] Dr. Abelardo Barrett FREE T3on 01-15-2022 FREE T3 3.34 pg/mlL Normal 2.18-3.98 [facility] Comment on above: Performed By: #### C MP, LIPID #### [facility] [address] [address] [address] Abelardo Barrett TSHon 01-15-2022 TSH Qn m[IU]/L Critically low 0.358-3.740 [facility] Comment on above: Performed By: #### C MP, LIPID #### [facility] [address] [place] [address] Dr. Abelardo Barrett BLOOD GASES BTYon 12-14-2021 02 MODE ROOM AIR Normal [facility] Comment on above: Performed By: #### A BG #### [facility] [address] [place] [address] Dr. Abelardo CARSON TEST Positive Normal [facility] Comment on above: Performed By: #### A BG #### [facility] [address] [place] [address] Dr. Abelardo Barrett Base excess Calc (Bld) [Moles/Vol] 0.7 mmol/L Normal -2.0-2.0 [facility] Comment on above: Performed By: #### A BG #### [facility] [address] [address] [address] Abelardo Barrett BIPAP PRESSURE Normal [facility] Comment on above: Performed By: #### A BG #### [facility] [address] [address] [address] Abelardo Barrett CO2 [Moles/Vol] 51.6 mmol/L Critically high 23.0-28.0 [facility] Comment on above: Performed By: #### A BG #### [facility] [address] [address] [address] Abelardo Barrett CPAP [facility] Comment on above: Performed By: #### A BG #### [facility] [address] [place] [address] Dr. Abelardo Barrett FIO2 [facility] Comment on above: Performed By: #### A BG #### [facility] [address] [address] [address] Abelardo Barrett HCO3 (Bld) [Moles/Vol] 25.0 mmol/L Normal 22.0-26.0 [facility] Comment on above: Performed By: #### A BG #### [facility] [address] [place] [address] Dr. Abelardo Barrett LPM [facility] Comment on above: Performed By: #### A BG #### [facility] [address] [place] [address] Dr. Abelardo Barrett MINUTE VOLUME Normal [facility] Comment on above: Performed By: #### A BG #### [facility] [address] [place] [address] Dr. Abelardo Barrett Oxygen (Bld) [Partial pressure] 83.4 mm[Hg] Normal 80.0-100.0 [facility] Comment on above: Performed By: #### A BG #### [facility] [address] [place] [address] Dr. Abelardo Barrett Oxygen saturation in Blood 97.1 % Normal 95.0-100.0 [facility] Comment on above: Performed By: #### A BG #### [facility] [address] [address] [address] Abelardo Barrett PCO2 39.3 mmHg Normal 35.0-45.0 [facility] Comment on above: Performed By: #### A BG #### [facility] [address] [address] [address] Abelardo Barrett PEEP [facility] Comment on above: Performed By: #### A BG #### [facility] [address] [address] [address] Abelardo Barrett pH (Bld) 7.415 [pH] Normal 7.350-7.450 [facility] Comment on above: Performed By: #### A BG #### [facility] [address] [address] [address] Abelardo Barrett [facility] Comment on above: Performed By: #### A BG #### [facility] [address] [place] [address] Dr. Abelardo Barrett [facility] Comment on above: Performed By: #### A BG #### [facility] [address] [address] [address] Abelardo Barrett PUNCTURE SITE [facility] Comment on above: Performed By: #### A BG #### [facility] [address] [address] [address] Abelardo Barrett RATE [facility] Comment on above: Performed By: #### A BG #### [facility] [address] [place] [address] Dr. Abelardo Barrett VENT MODE [facility] Comment on above: Performed By: #### A BG #### [facility] [address] [address] [address] Abelardo Barrett [facility] Comment on above: Performed By: #### A BG #### [facility] [address] [address] [address] Abelardo Barrett Cardiovascular Lab Reporton 11-19-2021 Cardiovascular Lab Report [id number] Physician: Jian Dean, Department of M.D. Medicine Service Date: 11/19/2021 Division of Birthdate: 1945 Cardiology Room #: Adult Cardiovascular Services [address] [address] [address] [id number] Cardiovascular Laboratory Report FINAL IMPRESSIONS: 1. Angiographically nonobstructive coronary arteries. 2. Normal global left ventricular systolic function by noninvasive imaging. RECOMMENDATIONS: 1. Consider alternate etiologies for the patient's shortness of breath, mainly pulmonary; pulmonary function tests have been ordered. 2. Aggressive cardiovascular risk factor modification. 3. Follow up with Dr. Dean in the next 3-4 weeks in the [place] office. 4. Follow up with Dr. Aguirre as scheduled. PROCEDURES: Ultrasound-guided access of the [...] the left radial artery was obtained. A 6-Nicaraguan sheath was inserted without difficulty. Bilateral selective coronary angiography was performed using 5-[place]icaraguan JR4 and JL4 catheters. After reviewing the [...] abnormal stress test. Electronically Signed by: Jian Dean M.D. 11/26/2021 05:05 P Jian Dean M.D. Date Dict: 11/19/2021/01:09 P/Jian Dean M.D. Date Trans: 11/19/2021 02:08 P/mmo [id number] cc: Dorcas Aguirre M.D. [address] [place] [facility] [id number] Normal [facility]30 SARS-CoV-2 (COVID-19) RNA STEVE+probe Ql (Unsp spec) Not detected Normal NOT DETECTED [facility] Comment on above: Result Comment: This test is not yet approved or cleared by the [place] FDA. When there are no FDA-approved or cleared tests available, and other criteria are met, FDA can make tests available under an emergency access mechanism called an Emergency Use Authorization (EUA). The EUA for this test is supported by the [employer]aging [employer] Operator of Health and Human Service's (HHS's) declaration [...] By: #### F T3, TSH, T4 #### [facility] [address] [address] [address] Abelardo Barrett CBC AUTO DIFFon 11-14-2021 BASO # 0.0 103/ul Normal 0.0-0.1 [facility] Comment on above: Performed By: #### F T3, TSH, T4 #### [facility] [address] [place] [address] Dr. Abelardo Barrett Basophils/100 WBC (Bld) 0.8 % Normal 0.2-2.0 [facility] Comment on above: Performed By: #### F T3, TSH, T4 #### [facility] [address] [place] [address] Dr. Abelardo Barrett EO # 0.1 103/ul Normal 0.0-0.7 [facility] Comment on above: Performed By: #### F T3, TSH, T4 #### [facility] [address] [place] [address] Dr. Abelardo Barrett Eosinophils/100 WBC (Bld) 2.1 % Normal 0.9-7.0 [facility] Comment on above: Performed By: #### F T3, TSH, T4 #### [facility] [address] [place] [address] Dr. Abelardo Barrett Erythrocyte distribution width (RBC) [Ratio] 12.0 % Normal 11.0-15.0 [facility] Comment on above: Performed By: #### F T3, TSH, T4 #### [facility] [address] [place] [address] Dr. Abelardo Barrett Hematocrit (Bld) [Volume fraction] 36.2 % Normal 36.0-48.0 [facility] Comment on above: Performed By: #### F T3, TSH, T4 #### [facility] [address] [place] [address] Dr. Abelardo Barrett Hemoglobin (Bld) [Mass/Vol] 11.6 g/dL Critically low 12.0-16.0 [facility] Comment on above: Performed By: #### F T3, TSH, T4 #### [facility] [address] [place] [address] Dr. Abelardo Barrett IG # 0.01 10e3/ul Normal 0.00-0.03 [facility] Comment on above: Performed By: #### F T3, TSH, T4 #### [facility] [address] [address] [address] Abelardo Barrett IG % 0.2 % Normal 0.0-0.5 [facility] Comment on above: Performed By: #### F T3, TSH, T4 #### [facility] [address] [address] [address] Abelardo Barrett LYMPH # 0.8 103/ul Critically low 1.2-3.8 [facility] Comment on above: Performed By: #### F T3, TSH, T4 #### [facility] [address] [address] [address] Abelardo Barrett Lymphocytes/100 WBC (Bld) 15.8 % Critically low 20.5-60.0 [facility] Comment on above: Performed By: #### F T3, TSH, T4 #### [facility] [address] [place] [address] Dr. Abelardo Barrett MANUAL DIFF REQ NO Normal [facility] Comment on above: Performed By: #### F T3, TSH, T4 #### [facility] [address] [place] [address] Dr. Abelardo Barrett MCH (RBC) [Entitic mass] 30.2 pg Normal 26.7-34.0 [facility] Comment on above: Performed By: #### F T3, TSH, T4 #### [facility] [address] [place] [address] Dr. Abelardo Barrett MCHC (RBC) [Mass/Vol] 32.0 g/dL Normal 29.9-35.2 [facility] Comment on above: Performed By: #### F T3, TSH, T4 #### [facility] [address] [address] [address] Abelardo Barrett MCV (RBC) [Entitic vol] 94.3 fL Normal 81.0-99.0 [facility] Comment on above: Performed By: #### F T3, TSH, T4 #### [facility] [address] [place] [address] Dr. Abelardo Barrett MONO # 0.4 103/ul Normal 0.3-0.8 [facility] Comment on above: Performed By: #### F T3, TSH, T4 #### [facility] [address] [address] [address] Abelardo Barrett Monocytes/100 WBC (Bld) 8.3 % Normal 1.7-12.0 [facility] Comment on above: Performed By: #### F T3, TSH, T4 #### [facility] [address] [place] [address] Dr. Abelardo Barrett NEUT # 3.8 103/ul Normal 1.4-6.5 [facility] Comment on above: Performed By: #### F T3, TSH, T4 #### [facility] [address] [place] [address] Dr. Abelardo Barrett Neutrophils/100 WBC (Bld) 72.8 % Normal 43.0-75.0 [facility] Comment on above: Performed By: #### F T3, TSH, T4 #### [facility] [address] [place] [address] Dr. Abelardo Barrett Platelet mean volume (Bld) [Entitic vol] 8.6 fL Critically low 9.5-13.5 [facility] Comment on above: Performed By: #### F T3, TSH, T4 #### [facility] [address] [place] [address] Dr. Abelardo Barrett PLT 244 103/ul Normal 150-450 [facility] Comment on above: Performed By: #### F T3, TSH, T4 #### [facility] [address] [place] [address] Dr. Abelardo Barrett RBC 3.84 106/ul Critically low 4.20-5.40 [facility] Comment on above: Performed By: #### F T3, TSH, T4 #### [facility] [address] [place] [address] Dr. Abelardo Barrett WBC 5.2 103/ul Normal 4.0-11.0 [facility] Comment on above: Performed By: #### F T3, TSH, T4 #### [facility] [address] [place] [address] Dr. Abelardo Barrett PROF CHEM 8 (BAS METB)on Anion gap [Moles/Vol] 12.0 mmol/L Normal [facility] Comment on above: Performed By: #### B MP, HSTROPN #### [facility] [address] [place] [address] Dr. Abelardo Barrett Calcium [Mass/Vol] 9.2 mg/dL Normal 8.5-10.1 [facility] Comment on above: Performed By: #### B MP, HSTROPN #### [facility] [address] [address] [address] Abelardo Barrett Chloride [Moles/Vol] 101 mmol/L Normal 98-107 [facility] Comment on above: Performed By: #### B VIBHA, HSTROPN #### [facility] [address] [place] [address] Dr. Abelardo Barrett CO2 [Moles/Vol] 26.3 mmol/L Normal 21.0-32.0 [facility] Comment on above: Performed By: #### B MP, HSTROPN #### [facility] [address] [address] [address] Abelardo Barrett Creatinine [Mass/Vol] 0.90 mg/dL Normal 0.55-1.02 [facility] Comment on above: Performed By: #### B VIBHA, HSTROPN #### [facility] [address] [place] [address] Dr. Abelardo Barrett EGFR-AF WALLISIAN >60 Normal >=60 [facility] Comment on above: Performed By: #### B MP, HSTROPN #### [facility] [address] [place] [address] Dr. Abelardo Barrett EGFR-NON AF WALLISIAN >60 Normal >=60 [facility] Comment on above: Performed By: #### B MP, HSTROPN #### [facility] [address] [place] [address] Dr. Abelardo Barrett Glucose [Mass/Vol] 101 mg/dL Normal 74-106 [facility] Comment on above: Performed By: #### B MP, HSTROPN #### [facility] [address] [address] [address] Abelardo Barrett Potassium [Moles/Vol] 4.3 mmol/L Normal 3.5-5.1 [facility] Comment on above: Performed By: #### B MP, HSTROPN #### [facility] [address] [address] [address] Abelardo Barrett Sodium [Moles/Vol] 135 mmol/L Critically low 136-145 [facility] Comment on above: Performed By: #### B MP, HSTROPN #### [facility] [address] [address] [address] Abelardo Barrett Urea nitrogen [Mass/Vol] 34.0 mg/dL Critically high 7.0-18.0 [facility] Comment on above: Performed By: #### B MP, HSTROPN #### [facility] [address] [address] [address] Abelardo Barrett Urea nitrogen/Creatinine [Mass ratio] 37.8 mg/mg Normal [facility] Comment on above: Performed By: #### B MP, HSTROPN #### [facility] [address] [place] [address] Dr. Abelardo Barrett TROPONIN, HIGH SENSITIVITYon 11-14-2021 HSTROP 5.8 pg/mL Normal 4.0-51.3 [facility] Comment on above: Result Comment: CUT- OFF POINTS HAVE BEEN ESTABLISHED BASED ON THE FOURTH UNIVERSAL DEFINITIONS OF MYOCARDIAL INFARCTION. THE UPPER REFERENCE LIMIT (URL) OF TROPONIN, DEFINED THE 99TH PERCENTILE OF cTnI DISTRIBUTION IN A REFERENCE POPULATION, HAS BEEN CONFIRMED THE DECISION THRESHOLD FOR [place] DIAGNOSIS. Performed By: #### C MP, LIPID #### [facility] [address] [address] [address] Abelardo Barrett HSTROP 5.8 pg/mL Normal 4.0-51.3 [facility] Comment on above: Result Comment: CUT- OFF POINTS HAVE BEEN ESTABLISHED BASED ON THE FOURTH UNIVERSAL DEFINITIONS OF MYOCARDIAL INFARCTION. THE UPPER REFERENCE LIMIT (URL) OF TROPONIN, DEFINED THE 99TH PERCENTILE OF cTnI DISTRIBUTION IN A REFERENCE POPULATION, HAS BEEN CONFIRMED THE DECISION THRESHOLD FOR [place] DIAGNOSIS. Performed By: #### B MP, HSTROPN #### [facility] [address] [address] [address] Abelardo Barrett XR CHEST 1 Von [...] LETICIA HOYT Date: 2021-11-14 12:45 Normal [facility] CBC AUTO DIFFon 10-27-2021 BASO # 0.1 103/ul Normal 0.0-0.1 [facility] Comment on above: Performed By: #### C BC #### [facility] [address] [address] [address] Abelardo Barrett Basophils/100 WBC (Bld) 1.1 % Normal 0.2-2.0 [facility] Comment on above: Performed By: #### C BC #### [facility] [address] [address] [address] Abelardo Barrett EO # 0.2 103/ul Normal 0.0-0.7 [facility] Comment on above: Performed By: #### C BC #### [facility] [address] [address] [address] Abelardo Barrett Eosinophils/100 WBC (Bld) 3.9 % Normal 0.9-7.0 [facility] Comment on above: Performed By: #### C BC #### [facility] [address] [address] [address] Abelardo Barrett Erythrocyte distribution width (RBC) [Ratio] 12.1 % Normal 11.0-15.0 [facility] Comment on above: Performed By: #### C BC #### [facility] [address] [place] [address] Dr. Abelardo Barrett Hematocrit (Bld) [Volume fraction] 33.6 % Critically low 36.0-48.0 [facility] Comment on above: Performed By: #### C BC #### [facility] [address] [place] [address] Dr. Abelardo Barrett Hemoglobin (Bld) [Mass/Vol] 11.1 g/dL Critically low 12.0-16.0 [facility] Comment on above: Performed By: #### C BC #### [facility] [address] [place] [address] Dr. Abelardo Barrett IG # 0.01 10e3/ul Normal 0.00-0.03 [facility] Comment on above: Performed By: #### C BC #### [facility] [address] [place] [address] Dr. Abelardo Barrett IG % 0.2 % Normal 0.0-0.5 [facility] Comment on above: Performed By: #### C BC #### [facility] [address] [place] [address] Dr. Abelardo Barrett LYMPH # 1.3 103/ul Normal 1.2-3.8 [facility] Comment on above: Performed By: #### C BC #### [facility] [address] [place] [address] Dr. Abelardo Barrett Lymphocytes/100 WBC (Bld) 28.5 % Normal 20.5-60.0 [facility] Comment on above: Performed By: #### C BC #### [facility] [address] [place] [address] Dr. Abelardo Barrett MANUAL DIFF REQ NO Normal [facility] Comment on above: Performed By: #### C BC #### [facility] [address] [place] [address] Dr. Abelardo Barrett MCH (RBC) [Entitic mass] 30.8 pg Normal 26.7-34.0 [facility] Comment on above: Performed By: #### C BC #### [facility] [address] [place] [address] Dr. Abelardo Barrett MCHC (RBC) [Mass/Vol] 33.0 g/dL Normal 29.9-35.2 [facility] Comment on above: Performed By: #### C BC #### [facility] [address] [address] [address] Abelardo Barrett MCV (RBC) [Entitic vol] 93.3 fL Normal 81.0-99.0 [facility] Comment on above: Performed By: #### C BC #### [facility] [address] [address] [address] Abelardo Barrett MONO # 0.5 103/ul Normal 0.3-0.8 [facility] Comment on above: Performed By: #### C BC #### [facility] [address] [address] [address] Abelardo Barrett Monocytes/100 WBC (Bld) 11.1 % Normal 1.7-12.0 [facility] Comment on above: Performed By: #### C BC #### [facility] [address] [address] [address] Abelardo Barrett NEUT # 2.5 103/ul Normal 1.4-6.5 [facility] Comment on above: Performed By: #### C BC #### [facility] [address] [place] [address] Dr. Abelardo Barrett Neutrophils/100 WBC (Bld) 55.2 % Normal 43.0-75.0 [facility] Comment on above: Performed By: #### C BC #### [facility] [address] [place] [address] Dr. Abelardo Barrett Platelet mean volume (Bld) [Entitic vol] 9.1 fL Critically low 9.5-13.5 [facility] Comment on above: Performed By: #### C BC #### [facility] [address] [place] [address] Dr. Abelardo Barrett PLT 241 103/ul Normal 150-450 [facility] Comment on above: Performed By: #### C BC #### [facility] [address] [address] [address] Abelardo Barrett RBC 3.60 106/ul Critically low 4.20-5.40 [facility] Comment on above: Performed By: #### C BC #### [facility] [address] [place], [place] [address] Dr. Abeladro Barrett WBC 4.6 103/ul Normal 4.0-11.0 [facility] Comment on above: Performed By: #### C BC #### [facility] [address] [place], [place] [address] Dr. Abelardo Barrett ECHOCARDIO M/2D COMPLETEon 0 10-27-2021 ECHOCARDIO M/2D COMPLETE Patient: BECKY PONCE Exam Date: 10/27/2021 : 1945 Gender:F Ordering : DR DORCAS AGUIRRE . Admission #: [id number] Family : Order #: [id number] CLICK HERE TO VIEW EXAM ECHOCARDIOGRAM REPORT [...] Area(A4C): 17.20 cm2 Left Atrium Systolic Volume(A2C): 82681 mm3 Left Atrium Systolic Volume(A4C): 85105 mm3 Mitral Valve MV E to A Ratio: 0.80 Deceleration Kaufman: 2480 mm/s2 Mitral Valve A-Wave Peak Velocity: [...] Mayberry M.D. on 10/27/2021 at 19:38 Normal [facility] FREE T3on 10-27-2021 FREE T3 4.10 pg/mlL Critically high 2.18-3.98 [facility] Comment on above: Performed By: #### F T3, TSH, T4 #### [facility] [address] [address] [address] Abelardo Barrett GLYCOHEMOGLOBIN A1Con 2021 ADA RECOMMENDATION SEE BELOW Normal [facility] Comment on above: Result Comment: ADA RECOMMENDED LIMIT 4.0 - 6.0 ADA THERAPEUTIC TARGET < 7.0 ACTION SUGGESTED > 7.0 Performed By: #### F T3, TSH, T4 #### [facility] [address] [address] [address] Abelardo Barrett Glucose [Mass/Vol] 123 mg/dL Normal [facility] Comment on above: Performed By: #### F T3, TSH, T4 #### [facility] [address] [address] [address] Abelardo Barrett HbA1c (Bld) [Mass fraction] 5.9 % Normal 4.5-6.2 [facility] Comment on above: Performed By: #### F T3, TSH, T4 #### [facility] [address] [address] [address] Abelardo Barrett IRONon 10-27-2021 Iron [Mass/Vol] 63.0 ug/dL Normal 50.0-170.0 [facility] Comment on above: Performed By: #### C MP, LIPID #### [facility] [address] [place] [address] Dr. Abelardo Barrett LIPID PROFILEon 10-27-2021 CHOL-HDL RATIO NORM SEE BELOW Normal [facility] Comment on above: Result Comment: 3.3 - 4.4 LOW RISK 4.4 - 7.1 AVERAGE RISK 7.1 - 11.0 MODERATE RISK >11.0 HIGH RISK Performed By: #### C MP, LIPID #### [facility] [address] [place] [address] Dr. Abelardo Barrett Cholesterol [Mass/Vol] 163 mg/dL Normal <=200 [facility] Comment on above: Performed By: #### C MP, LIPID #### [facility] [address] [place] [address] Dr. Abelardo Barrett Cholesterol in HDL [Mass/Vol] 74 mg/dL Critically high 40-60 [facility] Comment on above: Performed By: #### C MP, LIPID #### [facility] [address] [address] [address] Abelardo Barrett Cholesterol in LDL [Mass/Vol] 79.2 mg/dL Normal [facility] Comment on above: Performed By: #### C MP, LIPID #### [facility] [address] [address] [address] Abelardo Barrett Cholesterol.total/C holesterol in HDL [Mass ratio] 2.2 {ratio} Normal [facility] Comment on above: Performed By: #### C MP, LIPID #### [facility] [address] [address] [address] Abelardo Barrett HDL NORMAL > or = 60 mg/dl - LO W CARDIOVASCULAR RISK <40 mg/dl - HIGH CARDIOVASCULAR RISK Normal [facility] Comment on above: Performed By: #### C MP, LIPID #### [facility] [address] [address] [address] Abelardo Barrett LDL CALC NORMAL SEE BELOW Normal [facility] Comment on above: Result Comment: <100 mg/dl OPTIMAL 100 - 129 mg/dl NEAR OR ABOVE OPTIMAL 130 - 159 mg/dl BORDERLINE HIGH 160 - 189 mg/dl HIGH >190 mg/dl VERY HIGH Performed By: #### C MP, LIPID #### [facility] [address] [place] [address] Dr. Abelardo Barrett Triglyceride [Mass/Vol] 49 mg/dL Normal <=150 [facility] Comment on above: Performed By: #### C MP, LIPID #### [facility] [address] [address] [address] Abelardo Barrett VLDL CALC 9.8 mg/dL Normal [facility] Comment on above: Performed By: #### C MP, LIPID #### [facility] [id number] Abelardo Barrett NM STRESS/REST MULTIon 10-27 NM STRESS/REST MULTI Patient: BECKY PONCE Exam Date: 10/27/2021 : 1945 Gender:F Ordering : DR DORCAS AGUIRRE . Admission #: [id number] Family : Order #: [id number] CLICK HERE TO VIEW EXAM RADIOLOGY REPORT [...] anteroseptal. Basal inferoseptal. Mid-anteroseptal. Mid-inferoseptal. Apical septal. [place]. SIZE: Large (5 or more segments). SEVERITY: Moderate. TYPE: Mixed. WALL MOTION: Normal. Basal inferoseptal. Mid-anterior. Mid-anteroseptal. [place]. LV SIZE: Normal. 63 mL. TID / [...] left bundle branch block Dictated by: Saranya Nice MD on 10/27/2021 at 12:05 Approved by: Saranya Nice MD on 10/27/2021 at 12:10 Normal [facility] PROF 14(COMP METB)on 022 Albumin [Mass/Vol] 3.2 g/dL Critically low 3.4-5.0 [facility] Comment on above: Performed By: #### C MP, LIPID #### [facility] [address] [place] [address] Dr. Abelardo Barrett Albumin/Globulin [Mass ratio] 0.9 {ratio} Normal [facility] Comment on above: Performed By: #### C MP, LIPID #### [facility] [address] [place] [address] Dr. Abelardo Barrett ALP [Catalytic activity/Vol] 50 U/L Normal 46-116 [facility] Comment on above: Performed By: #### C MP, LIPID #### [facility] [address] [address] [address] Abelardo Barrett ALT [Catalytic activity/Vol] 38 U/L Normal 14-59 [facility] Comment on above: Performed By: #### C MP, LIPID #### [facility] [address] [place] [address] Dr. Abelardo Barrett Anion gap [Moles/Vol] 13.4 mmol/L Normal [facility] Comment on above: Performed By: #### C MP, LIPID #### [facility] [address] [place] [address] Dr. Abelardo Barrett AST [Catalytic activity/Vol] 27 U/L Normal 15-37 [facility] Comment on above: Performed By: #### C MP, LIPID #### [facility] [address] [place] [address] Dr. Abelardo Barrett Bilirubin [Mass/Vol] 0.4 mg/dL Normal 0.2-1.0 [facility] Comment on above: Performed By: #### C MP, LIPID #### [facility] [address] [place] [address] Dr. Abelardo Barrett Calcium [Mass/Vol] 8.6 mg/dL Normal 8.5-10.1 [facility] Comment on above: Performed By: #### C MP, LIPID #### [facility] [address] [place] [address] Dr. Abelardo Barrett Chloride [Moles/Vol] 107 mmol/L Normal 98-107 [facility] Comment on above: Performed By: #### C MP, LIPID #### [facility] [address] [place] [address] Dr. Abelardo Barrett CO2 [Moles/Vol] 24.7 mmol/L Normal 21.0-32.0 [facility] Comment on above: Performed By: #### C MP, LIPID #### [facility] [address] [address] [address] Abelardo Barrett Creatinine [Mass/Vol] 0.75 mg/dL Normal 0.55-1.02 [facility] Comment on above: Performed By: #### C MP, LIPID #### [facility] [address] [address] [address] Abelardo Barrett EGFR-AF WALLISIAN >60 Normal >=60 [facility] Comment on above: Performed By: #### C MP, LIPID #### [facility] [address] [address] [address] Abelardo Barrett EGFR-NON AF WALLISIAN >60 Normal >=60 [facility] Comment on above: Performed By: #### C MP, LIPID #### [facility] [address] [address] [address] Abelardo Barrett Globulin (S) [Mass/Vol] 3.4 g/dL Normal [facility] Comment on above: Performed By: #### C MP, LIPID #### [facility] [address] [address] [address] Abelardo Barrett Glucose [Mass/Vol] 92 mg/dL Normal 74-106 [facility] Comment on above: Performed By: #### C MP, LIPID #### [facility] [address] [address] [address] Abelardo Barrett Potassium [Moles/Vol] 4.1 mmol/L Normal 3.5-5.1 [facility] Comment on above: Performed By: #### C MP, LIPID #### [facility] [address] [address] [address] Abelardo Barrett Protein [Mass/Vol] 6.6 g/dL Normal 6.4-8.2 [facility] Comment on above: Performed By: #### C MP, LIPID #### [facility] [address] [address] [address] Abelardo Barrett Sodium [Moles/Vol] 141 mmol/L Normal 136-145 [facility] Comment on above: Performed By: #### C MP, LIPID #### [facility] [address] [address] [address] Abelardo aBrrett Urea nitrogen [Mass/Vol] 29.0 mg/dL Critically high 7.0-18.0 [facility] Comment on above: Performed By: #### C MP, LIPID #### [facility] [address] [address] [address] Abelardo Barrett Urea nitrogen/Creatinine [Mass ratio] 38.7 mg/mg Normal [facility] Comment on above: Performed By: #### C MP, LIPID #### [facility] [address] [address] [address] Abelardo Barrett T4on 10-27-2021 T4 [Mass/Vol] 9.40 ug/dL Normal 4.80-13.90 [facility] Comment on above: Performed By: #### F T3, TSH, T4 #### [facility] [address] [place] [address] Dr. Abelardo Barrett TSHon 10-27-2021 TSH Qn m[IU]/L Critically low 0.358-3.740 [facility] Comment on above: Performed By: #### F T3, TSH, T4 #### [facility] [address] [place] [address] Dr. Abelardo Barrett T4 [facility] 10-01-2021 T4 [Mass/Vol] 9.4 ug/dL Normal 4.5-12.0 [facility] Comment on above: Performed By: #### T 4LC #### [facility] [address] [place] [address] Dr. Abelardo Barrett FREE T3on 09-30-2021 FREE T3 4.05 pg/mlL Critically high 2.18-3.98 [facility] Comment on above: Performed By: #### F T3, TSH, T4 #### [facility] [address] [place] [address] Dr. Abelardo Barrett TSHon 09-30-2021 TSH Qn m[IU]/L Critically low 0.358-3.740 [facility] Comment on above: Performed By: #### F T3, TSH, T4 #### [facility] [address] [address] [address] Abelardo Barrett TSH RANGE SEE BELOW Normal [facility] Comment on above: Result Comment: <0.3 4 UIU/ml HYPERTHYROID 0.34-5.60 UIU/ml EUTHYROID >5.60 UIU/ml HYPOTHYROID Performed By: #### F T3, TSH, T4 #### [facility] [address] [address] [address] Abelardo Barrett FREE T3on 08-14-2021 FREE T3 1.73 pg/mlL Critically low 2.77-5.27 [facility] Comment on above: Performed By: #### C MP, LIPID #### [facility] [address] [place] [address] Dr. Abelardo Barrett T4on 08-14-2021 T4 [Mass/Vol] 4.40 ug/dL Critically low 5.53-11.00 [facility] Comment on above: Performed By: #### C MP, LIPID #### [facility] [address] [address] [address] Abelardo Barrett TSHon 08-14-2021 TSH 0.349 uIU/mL Critically low 0.470-4.680 [facility] Comment on above: Performed By: #### C MP, LIPID #### [facility] [address] [place] [address] Dr. Abelardo Barrett TSH RANGE SEE BELOW Normal [facility] Comment on above: Result Comment: <0.3 4 UIU/ml HYPERTHYROID 0.34-5.60 UIU/ml EUTHYROID >5.60 UIU/ml HYPOTHYROID Performed By: #### C MP, LIPID #### [facility] [address] [place] [address] Dr. Abelardo Barrett Outside Colonoscopyon 2020 Outside Colonoscopy [id number]: 127 Normal [facility] RAD - MISCon 05-14-2020 RAD - MISC [id number] [id number]: 127 [facility] Lab Reportson 05-12-2020 Lab Reports [id number] [id number]: 127 [facility] Provider Letter FTMCon 05-07 Provider Letter [facility] Dorcas Aguirre, [address] [address] [place] [address] Re: BECKY PONCE Date of : 1945 Thank you for your referral of Becky Ponce who was seen on consultation on April 30, 2020, for positive occult stool. A colonoscopy is planned for further evaluation. I have enclosed my consultation notes for your review. I will be happy to follow Becky should her symptoms persist. Sincerely, Ajith Padilla MD General Surgery [facility] Consent for Procedure/Surger yon 05-06-2020 Consent for Procedure/Surgery [id number]: 127 [facility] Facesheeton 05-01-2020 Facesheet [id number]#[id number]: 127 [facility] Ambulatory Clinical Summaryo n 04-30-2020 Ambulatory Clinical Summary {[id number] }CD:[id number] [facility] Ambulatory Clinical Summary {[id number] }CD:[id number] [facility] Physician Referralon 020 Physician Referral [id number]: 127 [facility] Vital Signs Date Time Vital Sign Value Performing Clinician Facility 04-10-2024 11:24-0500 Diastolic blood pressure 76 mm[Hg] Sanjuanita Whipple MD Work Phone: [employer] [facility] 04-10-2024 11:24-0500 Systolic blood pressure 132 mm[Hg] [facility] 03-27-2024 11:01-0500 Body height 162.6 cm [facility] 03-27-2024 11:01-0500 Body mass index (BMI) [Ratio] 25.46 kg/m2 Sanjuanita Whipple MD Work Phone: [facility] [employer] 03-27-2024 11:01-0500 Body weight 67.27 kg [facility] Whipple [facility] 03-27-2024 11:01-0500 Diastolic blood pressure 82 mm[Hg] [facility] Whipple [facility] 03-27-2024 11:01-0500 Systolic blood pressure 140 mm[Hg] [facility]ipple [facility] 05-27-2022 16:10-0500 Body temperature 96.4 [degF] Saranya Butcher MD Work Phone: [employer] 05-27-2022 16:10-0500 Diastolic blood pressure 72 mm[Hg] Saranya Butcher MD Work Phone: [employer] 05-27-2022 16:10-0500 Heart rate 81 /min Saranya Butcher MD Work Phone: [employer] 05-27-2022 16:10-0500 SaO2% (BldA) [Mass fraction] 99 % Saranya Butcher MD Work Phone: [employer] 05-27-2022 16:10-0500 Systolic blood pressure 145 mm[Hg] Saranya Butcher MD Work Phone: [employer] 05-27-2022 14:30-0500 Respiratory rate 15 /min Saranya Butcher MD Work Phone: [employer] 07-29-2021 09:16-0400 Body height 162.6 cm Gertrudis Encarnacion MD Work Phone: 07-29-2021 09:16-0400 Body mass index (BMI) [Ratio] 23.34 kg/m2 Gertrudis Encarnacion MD Work Phone: 07-29-2021 09:16-0400 Body temperature 97.59 [degF] Gertrudis Encarnacion MD Work Phone: [phone] [address] 07-29-2021 09:16-0400 Body weight 61.69 kg Gertrudis Encarnacion MD Work Phone: 8(536)[phone] [place] [address] 07-29-2021 09:16-0400 Diastolic blood pressure 85 mm[Hg] Gertrudis Encarnacion MD Work Phone: 7(071)[phone] [place] [address] 07-29-2021 09:16-0400 Heart rate 91 /min Gertrudis Encarnacion MD Work Phone: [phone] [place] [address] 07-29-2021 09:16-0400 Systolic blood pressure 144 mm[Hg] Gertrudis Encarnacion MD Work Phone: Encounters Encounter Date Encounter Type Care Provider Facility Start: 04-10-2024 End: 04-10-2024 [facility] Start: 04-10-2024 End: 04-10-2024 Patient encounter procedure Sanjuanita Whipple MD Work Phone: [facility] Comment on above: 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); Atrophic vaginitis Start: 04-10-2024 End: 04-10-2024 ambulatory [facility] [facility] Start: 03-27-2024 End: 03-27-2024 Office outpatient new 30 minutes Sanjuanita Whipple MD Work Phone: [facility] Comment on above: 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) Start: 03-27-2024 End: 03-27-2024 ambulatory [facility] Start: 03-20-2024 End: 03-20-2024 Bamboo flowsheet Melissa A Felter [employer] OFFICER-MEETING PLANNER Work Phone: [facility] Start: 03-20-2024 End: 03-20-2024 Bamboo flowsheet Melissa A Felter [employer] OFFICER-MEETING PLANNER Work Phone: [facility] Start: 03-20-2024 End: 03-20-2024 Office outpatient visit 25 minutes Melissa A Felter [employer] OFFICER-MEETING PLANNER Work Phone: [facility] Comment on above: Seborrheic keratosis (Primary Dx); Onychomycosis; Lentigines; Actinic keratosis Start: 03-20-2024 End: 03-20-2024 ambulatory MELISSA A FELTER Not Available Start: 11-22-2023 End: 11-22-2023 ambulatory ELOISA A PETITTI Not Available Start: 11-09-2023 End: 11-09-2023 ambulatory ELOISA A PETITTI Not Available Start: 11-01-2023 End: 11-01-2023 ambulatory MELISSA A FELTER Not Available Start: 09-09-2023 End: 09-09-2023 Office outpatient visit 10 minutes Saranya Butcher Work Phone: [facility] Raul Hua Start: 05-10-2023 End: 05-10-2023 ambulatory ELOISA A PETITTI Not Available Start: 03-29-2023 End: 03-29-2023 ambulatory ELOISA A PETITTI Not Available Start: 10-20-2022 End: 10-20-2022 ambulatory Gertrudis Encarnacion Facility:[facility] Start: 07-05-2022 End: 07-05-2022 Encounter identifier [facility] Start: 06-15-2022 End: 06-16-[address] DOCTOR BANDA Facility:[facility] Start: 06-02-2022 End: 06-02-2022 Encounter identifier Saranya Butcher Work Phone: [facility] Raul Hua Start: 06-01-2022 End: 06-01-[address] NIKUNJ LINDSEY Facility:[facility] Start: 05-27-2022 End: 05-27-2022 Evaluation and management of inpatient SARANYA BUTCHER [facility] Start: 05-27-2022 End: 05-27-2022 Encounter identifier Jethrotri Rosales Work Phone: [facility] JAVY Start: 05-27-2022 End: 05-27-2022 Evaluation and management of inpatient Saranya Butcher MD Work Phone: [facility] Comment on above: 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, initial encounter ([facility]) Start: 05-27-2022 End: 05-27-2022 Evaluation and management of inpatient [facility] [address] [place] [address] Start: 05-27-2022 End: 05-27-2022 Subsequent hospital visit by physician DarrylNa [address] [place] [address] Comment on above: Pain Start: 05-17-2022 End: 05-17-2022 Encounter identifier Jaskaran Martinez Work Phone: [facility] [place] Start: 05-06-2022 End: 05-06-2022 Encounter identifier Saranya Butcher Work Phone: [facility] Start: 05-06-2022 End: 05-06-2022 Office outpatient visit 25 minutes Ajith De La Torre Work Phone: [facility] Start: 04-07-2022 End: 04-08-[address] SARANYA NICE Facility:[facility] Start: 03-30-2022 End: 03-31-[address] DORCAS AGUIRRE . Facility:[facility] Start: 01-15-2022 End: 01-16-[address] DORCAS AGUIRRE . Facility:[facility] Start: 12-14-2021 End: 12-15-[address] JIAN DEAN Facility:[facility] Start: 11-19-2021 End: 11-20-2021 ambulatory DORCAS AGUIRRE Facility:[facility] Start: 11-18-2021 Encounter for preprocedural laboratory examination ELA MELTON [facility] Start: 11-17-2021 End: 11-18-2021 ambulatory ELA MELTON Facility:[facility] Start: 11-17-2021 End: 11-18-2021 Encounter for preprocedural laboratory examination ELA MELTON Facility:[facility] Start: 11-14-2021 End: 11-14-2021 ambulatory NIKHIL GIORDANO Facility: Start: 11-03-2021 End: 11-16-2021 ambulatory DORCAS AGUIRRE Facility:[facility] Start: 10-29-2021 End: 10-29-[address] DORCAS AGUIRRE . Facility:[facility] Start: 10-27-2021 End: 10-28-[address] DORCAS AGUIRRE . Facility:[facility] Start: 09-30-2021 End: 10-01-[address] DORCAS AGUIRRE . Facility:[facility] Start: 08-14-2021 End: 08-15-[address] DORCAS AGUIRRE . Facility:[facility] Start: 07-29-2021 End: 07-29-2021 Patient encounter procedure Gertrudis Encarnacion MD Work Phone: [facility] Comment on above: Rhytides (Primary Dx ); Atrophic skin Procedures Date Procedure Procedure Detail Performing Clinician Start: 04-10-2024 Colposcopy Colposcopy SANJUANITA PRICE Start: 03-20-2024 CRYOTHERAPY SKIN LESION Melissa Saba [employer] OFFICER-MEETING PLANNER Work Phone: Start: 09-09-2023 End: 09-09-2023 Radex hip unilateral with pelvis 2-3 views Saranya Butcher MD Start: 05-27-2022 Culture fngi mold/ye ast prsmptv oth xcpt blood Saranya Butcher MD Work Phone: Start: 05-27-2022 Radiologic examinati on pelvis 1/2 views Anu SNIDER Work Phone: Start: 05-27-2022 End: 05-27-2022 Intermittent Compression Device - SELF PAY Saranya Butcher MD Start: 05-27-2022 End: 05-27-2022 PA Revision Of Total Hip Joint Surgery Saranya Butcher MD Start: 05-27-2022 End: 05-27-2022 Revj tot hip arthrp fem only w/wo algrft Saranya Butcher MD Start: 05-27-2022 XR FLUORO UP TO 1 HO UR (STATISTICS)(NO REPORT) Saranya Butcher MD Work Phone: Start: 05-27-2022 Culture fngi mold/ye ast prsmptv oth xcpt blood Saranya Butcher MD Work Phone: Start: 05-27-2022 Antibody screen SARANYA OAKES Comment on above: Performed By: #### [id number] #### [facility] [address] [place] [address] Start: 05-27-2022 POCT GLUCOSE BLOOD Cuba Butcher MD Work Phone: Start: 05-27-2022 Sars-cov-2 detection by dna/rna Saranya Butcher MD Work Phone: Start: 05-27-2022 Antibody screen rbc each serum technique Saranya Butcher MD Work Phone: Start: 05-17-2022 Antibody screen SARANYA OAKES Comment on above: Performed By: #### 3 [id number] #### [facility] [address] [place] [address] Start: 05-17-2022 End: 05-17-2022 Physical therapy evaluation low complex 20 mins Saranya Butcher MD Start: 05-17-2022 End: 05-17-2022 Therapeut actvity direct pt contact each 15 min Saranya Butcher MD Plan of Treatment Date Care Activity Detail Author Start: 04-10-2025 Tobacco Screening Tobacco Screening [facility] Start: 09-19-2024 End: 09-19-2024 Patient encounter procedure 09/19/2024 8:30 AM EDT Office Visit [facility] [address] [place] [id number] Melissa Saba APRN-MEETING PLANNER [address] [place] [address] [facility] Start: 04-30-2024 End: 04-30-2024 Patient encounter procedure 04/30/2024 8:45 AM EST Office Visit [facility] [address] [place] [id number] Sanjuanita Whipple MD [address] [place] [address] [facility] Start: 04-10-2024 End: 04-10-2024 Patient encounter procedure 04/10/2024 11:30 AM EST Procedure visit [facility] [address] [place] [id number] Sanjuanita Whipple MD [address] [place] [address] [facility] Start: 03-20-2024 End: 03-20-2024 Patient encounter procedure 03/20/2024 9:50 AM EST Office Visit [facility] [address] [place] [phone] Melissa Saba APRN-CNP [address] [place] [address] Arrived [facility] Comment on above: Arrived Start: 01-01-2024 COVID-19 Vaccine ( season) COVID-19 Vaccine ( season) [facility] Start: 01-01-2024 Influenza vaccination [facility] Start: 05-27-2023 Falls Risk Assessment Falls Risk Ass essment [facility] Start: 05-17-2023 Hypertension/CHF/CAD Annual BMP Blood Test Hypertension/CHF/CAD Annual BMP Blood Test [facility] Start: 05-17-2022 Adolescent depressio n screening assessment Depression Screening [facility] Start: 05-17-2022 Hepatitis C screening Hepatitis C Sc reening [facility] Start: 05-17-2022 Lipid panel Cholesterol Sc reening (Lipid Panel) [facility] Start: 05-17-2022 Medicare Annual Well ness Visit Medicare Annual Wellness Visit [facility] Start: 05-17-2022 Screening for malign ant neoplasm of breast Breast Cancer Screening [facility] Start: 05-17-2022 Screening for malign ant neoplasm of colon Colorectal Cancer Screening: Colonoscopy [facility] Start: 05-17-2022 Screening for osteoporosis Osteoporosis Screening (Bone Density Screening) [facility] Start: 05-17-2022 Social Influencers o f Health Screening Social Influencers of Health Screening [facility] Start: 05-06-2022 Patient referral Referrals: DM E LT Hip Revision [facility] Start: 04-23-2021 COVID-19 VACCINE (2 - Pfizer 3-dose series) COVID-19 VACCINE (2 - Pfizer 3-dose series) Start: 04-23-2021 COVID-19 Vaccine (2 - Pfizer series) COVID-19 Vaccine (2 - Pfizer series) [facility] Start: 12-31-2020 Influenza vaccination INFLUENZA VACC INE (#1) Start: 12-24-2012 Fall Risk Screening Fall Risk Screen ing [facility] Start: 12-24-2012 Pneumococcal vaccination PNEUM OCOCCAL VACCINE SERIES (1 of 1 - PPSV23) Start: 12-24-1997 Administration of varicella zoster vaccine Zoster (Shingles) Vaccine (1 of 2) [facility] Start: 12-24-1997 Zoster vaccine hzv l cata for subcutaneous use ZOSTER (SHINGLES) VACCINE (1 of 2) Start: 12-24-1997 Zoster Vaccines (1 of 2) Zoste r Vaccines (1 of 2) [facility] Start: 12-24-1992 Colonoscopy COLORECTAL CAN CER SCREENING DISCUSSION Start: 1987 Fasting lipid profile LIPID SCREENIN G Start: 1987 Screening mammography MAMMOGRA M SCREENING DISCUSSION Start: 12-24-1968 Screening for malign ant neoplasm of cervix CERVICAL CANCER SCREENING DISCUSSION Start: 12-24-1966 DTaP,Tdap and Td Vaccines (1 - Tdap) DTaP,Tdap and Td Vaccines (1 - Tdap) [facility] Start: 12-24-1966 DTaP,Tdap,and Td Vaccines (1 - Tdap) DTaP,Tdap,and Td Vaccines (1 - Tdap) [facility] Start: 12-24-1966 Third diphtheria, tetanus and acellular pertussis (DTaP) vaccination TDAP (ADULT) Start: 12-24-1965 Tetanus vaccination TETANUS [facility] Start: 1959 Depression Screening Depression Scre ening [facility] Start: 1959 Tobacco Screening Tobacco Screening [facility] Start: 1945 Hepatitis C antibody , confirmatory test HEPATITIS C VIRUS SCREENING Start: 1945 Screening for osteoporosis DEXA SCAN DISCUSSION Bacteria identified in Tissue by Culture Culture tissue with gram stain Microbiology Routine Other mechanical complication of internal left hip prosthesis, initial encounter ([facility]) 05/27/2022 11:30 AM EST [facility] Bacteria identified in Tissue by Culture Culture tissue with gram stain Microbiology Routine 05/27/2022 3:08 PM EST [facility] End: 05-27-2022 Bacteria identified in Unspecified specimen by Anaerobe culture [facility] Work Phone: Comment on above: Release Upon Orderin g for 1 Occurrences starting 05/27/2022 Once for 1 Occurrenc es starting 05/27/2022 until 05/27/2022 Bacteria identified in Unspecified specimen by Anaerobe culture Culture anaerobic Microbiology Routine 05/27/2022 3:08 PM [facility] End: 04-10-2025 Cytopathology procedure, preparation of smear, genital source Pap Smear Pathology and Cytology Routine HPV in female 1 Occurrences starting 04/10/2024 until 04/10/2025 [facility] Work Phone: Comment on above: 1 Occurrences starti ng 04/10/2024 until 04/10/2025 Fungus identified in Skin by Culture Culture fungal, other Microbiology Routine Other mechanical complication of internal left hip prosthesis, initial encounter ([facility]) 05/27/2022 11:30 AM EST [facility] Fungus identified in Skin by Culture Culture fungal, other Microbiology Routine 05/27/2022 3:08 PM EST [facility] End: 04-10-2025 High risk HPV w/brady High risk HPV w/brady Lab Routine HPV in female 1 Occurrences starting 04/10/2024 until 04/10/2025 [facility] Comment on above: 1 Occurrences starti ng 04/10/2024 until 04/10/2025 Mycobacterium sp identified in Unspecified specimen by Organism specific culture Culture AFB Microbiology Routine Other mechanical complication of internal left hip prosthesis, initial encounter ([facility]) 05/27/2022 11:30 AM EST [facility] Mycobacterium sp identified in Unspecified specimen by Organism specific culture Culture AFB Microbiology Routine 05/27/2022 3:08 PM EST [facility] Comment on above: Release Upon Orderin g for 1 Occurrences starting 05/27/2022, 1 completed End: 04-10-2025 Surgical Pathology Surgical Pathology Pathology and Cytology Routine HPV in female 1 Occurrences starting 04/10/2024 until 04/10/2025 [facility] Comment on above: 1 Occurrences starti ng 04/10/2024 until 04/10/2025 Immunizations Immunization Date Immunization Notes Care Provider [facility] 05-18-2023 influenza virus vaccine, unspecified formulation Melissa Saba APRN-MEETING PLANNER Work Phone: [facility] 04-09-2020 influenza virus vaccine, unspecified formulation Gertrudis Encarnacion MD Work Phone: Payers Date Payer Category Payer Self-pay 2022 Medicaid [employer] MEDICARE A DVANTAGE [id number] 2022 Medicare AETNA MEDICARE A DVANTAGE AETNA MEDICARE ADVANTAGE [id number] 2022-Present [phone] [address] [facility] [place] [address] [id number] 2022 Medicare HMO AETNA MEDICARE [id number] 2021 Unknown [id number] 1.13.172.2.7.3.6 [id number] 1959 Medicare [id number] 1959 Medicare [id number] 1947 Unknown [id number] 2.16.840.1.618009.3.579.2.647 1947 Unknown [id number] 2.16.840.1.239294.3.579.2.647 1947 Unknown [id number] 2.16.840.1.083816.3.579.2.1143 1947 Unknown [id number] 2.16.840.1.355043.3.579.2.1143 1947 Unknown [id number] 2.16.840.1.110916.3.579.2.593 1947 Unknown [id number] 2.16.840.1.963786.3.579.2.593 1947 Unknown [id number] 2.16.840.1.120892.3.579.2.593 1947 Unknown [id number] 2.16.840.1.455441.3.579.2.593 1947 Unknown [id number] 2.16.840.1.713921.3.579.2.593 1947 Unknown [id number] 2.16.840.1.120181.3.579.2.593 1947 Unknown [id number] 2.16.840.1.874878.3.579.2.593 1947 Unknown [id number] 2.16.840.1.837941.3.579.2.593 1947 Unknown [id number] 2.16.840.1.368194.3.579.2.593 1947 Unknown [id number] 2.16.840.1.174934.3.579.2.593 1947 Unknown [id number] 2.16.840.1.641459.3.579.2.593 1947 Unknown [id number] 2.16840.1.268832.3.579.2.593 1947 Unknown [id number] 2.16.840.1.385857.3.579.2.1259 1947 Unknown [id number] 2.16.840.1.320813.3.579.2.1259 1947 Unknown [id number] 2.16.840.1.700726.3.579.2.1259 1947 Unknown [id number] 2.16.840.1.403221.3.579.2.1259 1947 Unknown [id number] 2.16.840.1.939592.3.579.2.1259 1947 Unknown [id number] 2.16.840.1.491223.3.579.2.1259 1947 Unknown [id number] 2.16.840.1.864222.3.579.2.1286 1947 Unknown [id number] 2.16.840.1.514131.3.579.2.1286 1947 Unknown [id number] 2.16.840.1.040311.3.579.2.1286 Unknown [id number] Unknown [id number] 2.16.840.1.790356.3.579.2.462 Social History Date Type Detail Facility Start: 03-10-2021 End: 03-27-2024 Tobacco smoking status [facility]IS Never smoked tobacco Start: 03-10-2021 End: 03-27-2024 Tobacco use and exposure Smokeless tobacco non-user Start: 07-29-2021 Alcohol intake Ex-drinker (finding) Start: 03-10-2021 History SDOH Alcohol Frequency 1 Start: 1945 Sex Assigned At Not on file [facility] Start: 05-27-2022 End: 03-20-2024 Alcohol intake Lifetime non-drinker (finding) [facility] Start: 05-17-2022 End: 05-27-2022 Exposure to SARS-CoV-2 (event) Not sure [facility] Start: 09-09-2023 Tobacco smoking status NHIS Unknown if ever smoked [facility] Start: 09-09-2023 Alcohol intake Alcohol Use Details [facility] Start: 1945 Sex Assigned At Female [facility] Start: 07-03-2019 Sexual Orientation Straight or heterosexual [facility] Start: 06-12-2020 End: 11-22-2023 History of Social function [facility] Start: 06-12-2020 End: 11-22-2023 Tobacco use panel [facility] Start: 11-09-2022 Alcohol Comment caffeine: none [facility] Start: 10-12-2022 Gender identity Identifies as female gender (finding) [facility] Start: 03-27-2024 End: 04-10-2024 Alcoholic beverage intake Current non-drinker of alcohol (finding) [facility] Childcare Unknown [facility] Start: 03-14-2017 Sex Female (finding) [facility] NEGATED: Highlighted rowStart: NINF History of tobacco use Passive smoker [facility] Medical Equipment Procedure Code Equipment Code Equipment Origin al Text Equipment Identifier Dates Hip Hd Option Bl [facility] 32[facility] - Sna - [id number], [id number] FDA Start: 05-27-2022 Shl Actb 50mm Hi p 3 Hl Fin Pps - [id number] Start: 07-13-2017 Linr Actb G7 Ntr l E1 36mm D - [id number] Start: 07-13-2017 Hd Fem 36mm Opt Shl Actb G7 Bl Rpl 650-1057 - [id number] Start: 07-13-2017 Stm Fem 107.5mm 133d 11 Hi Os - [id number] Start: 07-13-2017 Slv Fem Opt -6mm Tpr Hip Blx D Rpl 650-1064 - [id number] Start: 07-13-2017 Goals Date Patient Goal Desired Activity /State Personal health goal Comment on above: Formatting of this n ote might be different from the original. Evaluation of progress towards goal: Maximize work with PT at discharge to strengthen L hip Clinical Notes 04-30-2020 to 04-10-2024 Sanjuanita Whipple MD - 04/10/2024 11:30 AM Kenneth Whipple MD - 03/27/2024 11:00 AM ESTMedical Student - Franklin Brown - 03/27/2024 11:00 AM ESTMedical Student - Franklin Brown - 03/27/2024 11:00 AM EST Note Date & Type Note Facility 04-10-2024 History of Present illness Narrative Colposcopy Procedure Note Indications: Pap smear 1 year ago showed: negative but positive for HPV other . The prior pap showed no abnormalities. Prior cervical/vaginal disease: normal exam without visible pathology. Prior cervical treatment: no treatment. Procedure Details The risks and benefits of the procedure and Written informed consent obtained. Speculum placed in vagina and excellent visualization of cervix achieved, cervix swabbed x 3 with acetic acid solution. Findings: Cervix: no visible lesions; cervical biopsies taken at 12 o'clock, specimen labelled and sent to pathology, and hemostasis achieved with silver nitrate. Vaginal inspection: normal without visible lesions. Vulvar colposcopy: vulvar colposcopy not performed. Specimens: PAP AND ECC and cervical biopsy at 12 o'clock Complications: none. Plan: Discuss doing a Cytology and histology since the pt has not had a pap smear in a year and the pt was agreeable to POC. Discussed sending the pt home with a prescription for estrogen cream since she has not been using it and the pt was agreeable. Discussed that the pt might have some spotting or bleeding after the biopsy. Pt notes she has been taking folic acid and prenatals. Specimens labelled and sent to Pathology. Will base further treatment on Pathology findings. Post biopsy instructions given to patient. Return to discuss Pathology results in 2-3 weeks. Emmanuelle Melendez 04/10/24 [id number] SANJUANITA WHIPPLE MD documented in this encounter [facility] 03-27-2024 History of Present illness Narrative Becky Ponce is a 78 y.o.female. No LMP recorded. Patient is postmenopausal.. She presents for colposcopy consult. Patients last pap was negative but positive for other high risk hpv, as well as patients last few pap results. Pt denies any hx of autoimmune issues. She states she had negative pap smears in the past but now is concerned as to why it is coming back positive now. Pt notes she has had a colposcopy. HISTORY OF POSITIVE HPV OTHER, NEGATIVE CYTOLOGY OB History No obstetric history on file. MEDICAL HX Past Medical History: Diagnosis Date Arthritis Hyperlipidemia Hypertension Osteopenia Prolonged emergence from general anesthesia SURGICAL HX Past Surgical History: Procedure Laterality Date BELPHAROPTOSIS REPAIR CATARACT EXTRACTION Right CERVIX SURGERY REPLACEMENT TOTAL JOINT ANTERIOR SUPINE INTERMUSCULAR HIP Left 07/13/2017 Performed by Arnoldo Terrazas MD at [facility] FAM[facility] HX Family History Problem Relation Age of Onset Arthritis Mother COPD Mother Heart disease Mother Anesthesia problems Neg Hx MEDS Current Outpatient Medications Medication Sig Dispense Refill amitriptyline (ELAVIL) 50 mg tablet Take 50 mg by mouth nightly. diclofenac (VOLTAREN) 75 mg EC tablet Take 75 mg by mouth 2 (two) times a day. 11 lisinopril (PRINIVIL,ZESTRIL) 10 mg tablet Take 10 mg by mouth every morning before breakfast. simvastatin (ZOCOR) 20 mg tablet Take 20 mg by mouth nightly. No current facility-administered medications for this visit. ALLERGIES No Known Allergies Review of Systems Review of Systems Objective There were no vitals taken for this visit. 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 Discussed with the pt that the HPV might have been dormant in her negative pap smear but noted that her immune system might be waning which could have caused her to be HPV positive. Noted that since she is not on an immunosuppressants medication, there is not a high risk, and it is not recommended for her to continue getting pap smears. Advised the pt to increase her Folic acid to 800-1000 micrograms daily, noting that a vitamin is a suitable source. Advised the pt to keep taking care of herself to boost her immune system by eating healthy, staying active, and sleeping well at night. Discussed that if the pt is concerned about her persistent HPV, a colonoscopy can be done and a biopsy can be sent to the lab for further evaluation if she is wanting. Noted that colposcopies can be painful in postmenopausal women who do not use Estrogen cream. Advised her to use Tylenol or motrin prior to the procedure to help with any discomfort. Reassured the pt that there is no concern for cervical cancer at this time. Multiple questions asked and answered. MD NICKIE ALAS CMA Kelsie Ruble 03/27/24 [id number] documented in this encounter [facility] 03-27-2024 Miscellaneous Notes Disclaimer: This note is intended for educational purposes only. It does not constitute a patient visit and is not to be used or relied on for treatment, billing, or any other purposes. It has been created solely for to enable the student to practice documentation to achieve the expected level of competency in charting and receive feedback regarding same. This note is not a part of the legal medical record. documented in this encounter [facility] 03-27-2024 Progress note Formatting of t his note might be different from the original. Disclaimer: This note is intended for educational purposes only. It does not constitute a patient visit and is not to be used or relied on for treatment, billing, or any other purposes. It has been created solely for to enable the student to practice documentation to achieve the expected level of competency in charting and receive feedback regarding same. This note is not a part of the legal medical record. [facility] 03-20-2024 History of Present illness Narrative Images from the original note were not included. Skin Check Location: Patient requests a skin examination from the waist up and legs Dermatologic history: history of Actinic Keratosis, history of Squamous Cell Carcinoma Last visit: 1 year ago Established patient Follow up Diagnosis: Onychomycosis Location: left great toe Last visit: 03/15/2023 Symptoms: Patient reported improvement, now worsening in color Status: worsening in color Tried treatment: Lamisil PO every day x 3 months. Vinegar soaks-effective. Current treatment: Keeping nail trimmed short. All pertinent medical history, medications, and allergies were reviewed. General Exam: alert, oriented to person, place, and time, normal affect, well appearing Unaccompanied A complete skin exam was offered, pt declined. Areas not examined despite medical recommendation: From the waist down Scalp, Examined Head, Face Examined Neck Examined Chest Examined Back Examined Abdomen Examined Right arm Examined Left arm Examined Hands Examined Digits,nails: Examined Legs: examined Lymphatics: 1. Seborrheic keratosis Stuck on verrucous, variably pigmented papules and plaques. Patient was counseled regarding these benign growths. Removal is normally not necessary, but they may be removed if they are symptomatic or for cosmetic reasons. 2. Onychomycosis Left Hallux Toe Nail Plate Discoloration of nail, not at treatment goal. Patient has taken Lamisil for three months with recurrence within one year. Referred patient to podiatry to Dr. Rodriguez for further treatment. Ambulatory referral to Podiatry - Left Hallux Toe Nail Plate 3. Lentigines Head - Anterior (Face) Scattered brown macules The perfect peel done today. See note. Waiver signed, patient denies using any retinols or hx of herpes simplex. 4. Actinic keratosis (6) Left Breast (3), Left Upper Arm - Anterior (2), Right Breast Erythematous scaly papules Patient was counseled regarding these sun-induced growths that can develop into squamous cell carcinoma if left untreated. Discussed treatment with cryotherapy. It was emphasized that any treated lesions that fail to resolve should be re-evaluated. Cryotherapy performed today; see procedure note Diagnosis: Actinic keratosis Indication: Precancerous Location: see skin exam Consent: Verbal consent was obtained and risks were discussed, including, but not limited to risks of scarring, darker or tack puller pigmentary changes, recurrence, incomplete removal and infection. Method: Liquid nitrogen was used to treat the lesion(s) with two 5-10 second freeze-thaw cycles. Number of lesions treated: 6 Post-procedure instructions: Instructions were given orally and in writing. The office will be contacted if the lesion fails to resolve despite treatment, or if a side effect develops such as abnormal crusting, scabbing, redness or tenderness Cryotherapy, skin lesion - Left Breast (3), Left Upper Arm - Anterior (2), Right Breast Next Visit: 6 months skin exam documented in this encounter [facility] 09-09-2023 Evaluation note Type assessment Presence of artificial hip, left assessment Primary osteoarthritis of left h ip [facility] Work Phone: 1(625) 628-241605-10-2024 History of Present illness Narrative* Encounter Date Complaint History Of Prese nt Illness Hip Post-Op Left Hip Modifying Facto rs: Previous Surgery: LH revision 05/17/22 [facility]. Comments: Patient states she fell a week ago, she has not had an onset of pain due to the fell. Patient attended PT which went well, still working on strengthening with directed home exercises. She denies hip pain at this time. Post-Op Left Hip Modifying Facto rs: Previous Surgery: LH revision 05/17/22 [facility]. Comments: Patient presents for LH revision post op following an ER visit due to falling on the ice the day of surgery, she was discharged yesterday. . She started having pain 05/31/22. She was told she has a fracture of the left greater trochanter. Patient is not yet in PT but she had been doing directed exercises until the onset of pain on Tuesday05/31/22. Patient is ambulating with a walker. New Problem Left Hip Pain Modify ing Factors: Previous Surgery: LTHA 2018 Dr. Salazar ([place]). Comments: She complains of worsening left hip pain at her groin and thigh. Worse with weight bearing. Using a cane to assist with ambulation. Dr. Terrazas recently told her recently that her stem is loose but he doesn't do revisions. She was seen at [facility] in 2019 but it appeared that the implant had stabilized. Patient states that her symptoms are worsening and she can barely function at this point. No history of infection. [facility] Work Phone: 1(819) 971-647501-31-2023 NotePROCEDURE: XR HIP LT 2 3V W PELVIS [...] Electronically authenticated by: FER JUAREZ Date: 2022-06-01 12:03[facility]01-26-2023 History of Present illness Narrative* Gaby Sanchez, KARLA - 05/27/2022 5:59 PM EST Met all goals, d/c'd to home with sister. Medicated, all questions answered, assisted to front entrance by staff. * Gaby Sanchez RN - 05/27/2022 5:57 PM EST Goals: Met Identify possible barriers to meeting [...] of Transition Instructions will improve Outcome: Completed * Marisela Pope RN - 05/27/2022 5:30 PM EST Nursing reports patient has met goals for DC tonight Folder to nursing for Dc to HOME OPPT Surgeon instruction sheets PRevena confidence sheet Prevena booklet Long Optifoam dressing AVS in folder Has leg pumps for DC Prescriptions Escribed, OPPT Rx in folder. RN notified * Marisela Pope RN - 05/27/2022 4:53 PM EST 05/27/22 1652 Discharge Planning Living Arrangements Alone Support Systems Family members Assistance Needed family Type of Residence Private residence Home Services No Patient expects to be discharged to: home OPPT Does the patient need discharge transport arranged? No Follow Up Needs/Requests none Initial Transition Plan Initial Transition Plan Home Plan is home OPPT Sisters to care for her. * Marisela Pope RN - 05/27/2022 4:45 PM EST 05/27/22 1644 Patient Information Accompanied by/Relationship sister [...] has spoken with Dr Gurpreet Arango who hasapproved for this evening if medically cleared and goals met for home. She is waiting to void. * Clau Peng, GIN - 05/27/2022 3:36 PM EST [facility] Physical Therapy Evaluation PT Discharge Recommendations: Home independent Distance Ambulated (ft): 125 Device: Rolling walker Orthopedic Precautions: Anterior Hip Precautions LLE Weight Bearing Status: As Tolerated Strength LLE L Ankle Dorsiflexion: 5/5 L Ankle Plantar Flexion: 5/5 AM-PAC: * Saranya Butcher MD - Primary * Jethro Rosales MD [...] Pt instructed in safe mobility- see below- includinggait and stair training with RW. Pt is safe and steady with all mobility. Pt assisted back to bed and instructed in LE VRE and DVT pumps on. Pt plans to d/c home with sister to assist. Pt has met PT goals. Subjective Patient Active Problem List Diagnosis Other mechanical complication of internal left hip prosthesis, initial encounter ([facility]) Past Medical History: Diagnosis Date Adverse effect [...] of Steps 1 Prior Function Level of [place] Independent with mobility and functional transfers Bed [...] Clau Peng, PT Completed Goal: Pt will ascend/descend curb [...] Demonstrated Understanding Education Comments No comments found. * Saranya Ferro DO - 05/27/2022 2:37 PM EST [facility] - PROGRESS NOTE Patient Name : Becky Ponce Patient : 1945 Patient Admit Date [...] POCT 05/27/2022 98 IMAGING documented in this encounterGe[facility] [id number] Hospital course Narrative* Marisela Pope RN - 05/27/2022 4:37 PM EST -use over the counter stool softeners to prevent constipation -Call your pharmacy prior to discharge to make sure your prescriptions are ready for pickup * Marisela Pope RN - 05/27/2022 4:37 PM EST Please follow surgeon's discharge instructions and prescription directions. Surgeon' discharge instructions are in patient's folder- FOLLOW SURGEON INSTRUCTION SHEETS Contact Surgeon's office with any questions/concerns [phone] -Plasma Flow SCD'S Compression leg pumps on [...] call to schedule if not already scheduled. Theprescription is in your dischareg folder. Please take the prescription for therapy to your first appointment. -Maintain the Prevena incisional wound vac . Prevena patient care guide provided- Prevena Wound Vaclifespan alarms about 7 days from application and will need to be removed by the [facility] office. Pleasetake the Optifoam dressing in your folder for this appointment so it can be applied by the [facility] staff. Call for a 1 week follow up appointment for prevena incisional vac removal and any questions or concerns. Verify Office location when scheduling. [email or web address] [phone] * Princess Kenney RN - 05/25/2022 1:43 PM EST Pre-Surgery Instructions: Medication Instructions alendronate (FOSAMAX) 70 [...] prior to your surgery. Check in at receptionist/telephone operator desk [address], [place] [address]. If Outpatient, these additional instructions apply: An adult must stay with you the whole time you are here and drive you home. An adult must stay withyou at home for 24 hours due to Anesthesia. If you have JESUS, you are required to stay 3 hours after your surgery before we can discharge you. documented in this [facility]01-26-2023 Procedure note* Nancy Daniel RN - 05/27/2022 10:[address] Pemberton, Dr. Butcher, OR Nurse all aware of this patients skin tear on the right ankle (caused when patient was putting on her socks) assessed, documented and wound dressing applied. [facility] My [id number] Procedure note* Nancy Daniel RN - 05/27/2022 10:[address] Pemberton, Dr. Butcher, OR Nurse all aware of this patients skin tear on the right ankle (caused when patient was putting on her socks) assessed, documented and wound dressing applied. documented in this [facility]01-26-2023 History and physical note* Saranya Butcher MD - 05/27/2022 9:49 AM EST History and Physical Update ( H&P completed within the previous thirty days ) I personally reviewed the History and Physical, interviewed and examined the patient prior to surgery. No changes have occurred in the patient's condition since the History and Physical was completed. Alexis Bittar Phone: [phone] History and physical note* Saranya Butcher MD - 05/27/2022 9:49 AM EST History and Physical Update ( H&P completed within the previous thirty days ) I personally reviewed the History and Physical, interviewed and examined the patient prior to surgery. No changes have occurred in the patient's condition since the History and Physical was completed. documented in this encounterGeising[facility] [id number] NotePROCEDURE: XR HIP LT 2 3V W PELVIS [...] Electronically authenticated by: FER JUAREZ Date: 2022-03-31 06:56[facility]03-30-2022 History of Present illness Narrative* Spring Kelly LPN - 07/29/2021 9:30 AM EDT General Plastics Review of Systems: Do you [...] easily: no. Any swollen lymph nodes: no. * Gertrudis Encarnacion MD - 07/29/2021 9:30 AM EDT Subjective: Becky Ponce is an 75 y.o. female who [...] see them back PRN. documented in this [facility]12-30-2020 NoteChief Complaint referral for positive occult stool HPI Staff 74 year old female presents on consultation from Dr. Aguirre for positive occult stool. Denies rectal pain [...] swallowing difficulties, no hearing loss, no ear infection(s),no nose bleeds. Cardiovascular: normal blood pressure, no [...] Use:., 04/30/2020 Family History Family history is negativeK[facility] Health SpringfieldComment on above:Result Comment: Electronically Signed By: Ajith PADILLA MD\Date and Time Signed: 04/30/20 15:38 ESTConsult note* Clinical Note Date No Information [facility] Work Phone: Discharge summary* Clinical Note Date No Information [facility] Phone: Evaluation note* Diagnosis Rhytides- Primary Other specified hypertrophic and atrophic condition of skin Atrophic skin Other specified hypertrophic and atrophic condition of skin documented [facility]* Diagnosis Other mechanical complication of internal left hip prosthesis, initial encounter ([facility])- Primary documented in this encounter [facility]* Diagnosis Pain Generalized pain documented in this [facility]* Diagnosis Seborrheic keratosis- Primary Onychomycosis Dermatophytosis of nail Lentigines Actinic keratosis 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 [facility]* 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 vaginitis Postmenopausal atrophic vaginitis documented [facility] SystemHistory and physical note* Clinical Note Date No Information [facility] Phone: Hospital Discharge instructions* Attachments The following attachments cannot be sent through Care Everywhere. * DVT (Deep Vein Thrombosis): Prevention: General Info (Welsh) * Incentive Spirometer: General Info (Welsh) * Fall Prevention (W[place]sh) * Opioids: General Info (Welsh) * Constipation (Welsh) * Antibiotics: General Info (Welsh) documented in this encounterGe[facility] HospitalInstructions* Date Instruction Additional Infor mation No Information [facility] Phone: InstructionsNot on filedocumented in this encounter [facility]Progress note* Clinical Note Date No Information [facility] Work Phone: Reason for referral (narrative)* Reason For Referral No Information [facility] Work Phone: Rekwfw for visit Narrative* Auth/Cert Specialty Diagnoses / Procedures Referred By Dione long Referred To Contact Diagnoses Other mechanical complication of internal left hip prosthesis, initial encounter ([facility]) T84.091A Procedures CT REVISION PRATIK ACETABULAR COMPONENT ONLY W/WO AUTOGRAFT/ALLOGRAFT CT REVISION PRATIK ACETABULAR COMPONENT ONLY W/WO AUTOGRAFT/ALLOGRAFT 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, anterior Saranya Butcher MD [address] [place] [address] Chaim Galvez Or [address] [place] [address] Referral ID Status Reason Start Date Expiration Date Visits Re quested Visits Authorized [id number] 1 1 [facility] Purpose Family History No Family History Records Found Family Member Type Diagnosis Age At Onset No Information Advance Directives No Advanced Directives Records FoundLatest [...] therapy to prevent/treat cardiac or respiratory arrest. Directive Yes / No Effective Date File Name No Information Date Activated Date Inactivated Comments 07/13/2017 11:50 AM 07/14/2017 4:05 PM Additional Source Comments INFORMATION SOURCE (unrecogn ized section and content) DATE CREATED AUTHOR 09/27/2020 [facility] DATE CREATED AUTHOR AUTHOR'S ORGANIZ ATION 11/30/2021 [facility] DATE CREATED AUTHOR AUTHOR'S ORGANIZ ATION 08/02/2022 [facility] DATE CREATED AUTHOR AUTHOR'S ORGANIZ ATION 08/07/2022 [facility] DATE CREATED AUTHOR AUTHOR'S ORGANIZ ATION 10/21/2022 [facility] DATE CREATED AUTHOR AUTHOR'S ORGANIZ ATION 03/22/2024 [facility] EPIC DATE CREATED AUTHOR AUTHOR'S ORGANIZ ATION 04/13/2024 [facility] DATE CREATED AUTHOR AUTHOR'S ORGANIZ ATION 04/14/2024 [facility] Reason for Visit (unrecogniz ed section and content) Reason Comments Cosmetic Restylane Reason Comments Skin Check Follow-up Reason Comments Consult Reason Comments Colposcopy Care Teams (unrecognized sec tion and content) Academic Affairs Specialist Relationship Specialty Start Date End Date Dorcas Aguirre MD [address] [place] [address] PCP - General Family Medicine 03/10/21 Academic Affairs Specialist Relationship Specialty Start Date End Date Dorcas Aguirre MD [address] [place] [address] PCP - General Family Medicine 05/18/22 Academic Affairs Specialist Relationship Specialty Start Date End Date Dorcas Aguirre MD [address] [place] [address] PCP - General Family Medicine 05/18/22 Name Effective Dates (start - stop) Status Members No Information Academic Affairs Specialist Relationship Specialty Start Date End Date Dorcas Aguirre MD [address] [place] [address] PCP - General Family Medicine 10/13/22 Academic Affairs Specialist Relationship Specialty Start Date End Date Dorcas Aguirre MD [address] [place] [address] PCP - General Family Medicine 10/13/22 Academic Affairs Specialist Relationship Specialty Start Date End Date Dorcas Aguirre MD PCP - General 04/05/17 Academic Affairs Specialist Relationship Specialty Start Date End Date Dorcas Aguirre MD PCP - General 04/05/17 Ordered Prescriptions (unrec ognized section and content) [...] Intraprocedure 1138 (Given - Provid er: Saranya Butcher MD) fentaNYL (SUBLIMAZE) injection 25 mcg (CANCELED) [...] Intraprocedure 1257 (Given - Provid er: Saranya Butcher MD) promethazine (PHENERGAN) suppository 25 mg 25 [...] Intraprocedure 1139 (Given - Provid er: Saranya Butcher MD) sodium chloride 0.9 % flush 10 mL(Linked Group 1) 10 mL, intravenous, As needed, line care, Starting on Inez 05/27/22 at 1336, Recovery & On Unit sodium chloride 0.9 % irrigation solution (CANCELED) As needed, Starting on Inez 05/27/22 at 1139, Intraprocedure 1139 (Given - Provid er: Saranya Butcher MD) traZODone (DESYREL) tablet 50 mg 50 [...] BE BASED ON THE PRIMARY CLINICAL RECORDS. [employer] provides no warranty or guarantee of the accuracy or completeness of information in this document.
== END 2024-04-17 10:40 | disposition home or self-care (01) ==
LOC: MAMMO 10:39
PROVIDERS: PCP Family Medicine; Visit Provider Nurse Practitioner
DX: Z12.31 Encounter for screening mammogram for malignant neoplasm of breast (principal)
CPT/HCPCS: 77063; 77067

== ENCOUNTER 2024-04-17 11:20 | Outpatient (OUT) | payer MEDICARE, SELFPAY ==
--- OUTSIDE RECORDS SUMMARY | 2024-04-17 11:43 | XMS_ITS | CCD ---
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 Name Role Phone Dorcas Aguirre MD Primary Care Provider [phone] DORCAS AGUIRRE Referring Unavailable DORCAS AGUIRRE Primary Care Unavailable GERI CHONG Attending Unavailable GERI CHONG Admitting Unavailable DORCAS AGUIRRE Primary Care Unavailable DORCAS AGUIRRE Referring Unavailable SELF, REFERRED Attending Unavailable SELF, REFERRED Admitting Unavailable Dorcas Aguirre MD Primary Care Provider [phone] SARANYA BUTCHER Admitting Unavailable SARANYA BUTCHER Attending Unavailable DORCAS AGUIRRE Primary Care Unavailable [facility] Consulting Unavailable SARANYA BUTCHER Referring Unavailable DORCAS AGUIRRE Primary Care Unavailable TIMOTHY ., DR TOSCANO Attending Unavailable HOY ., DR TOSCANO Admitting Unavailable HOY ., DR TOSCANO Primary Care Unavailable HOY ., DR TOSCANO Consulting Unavailable ZIEBER, DR FER Cameron Consulting Unavailable LOWELL, DR SARANYA Massey Consulting Unavailable AHMED, DR [...] Attending Unavailable Saranya Butcher MD Unavailable Unavailable Dorcas Aguirre MD Primary Care Provider [phone] ELOISA OWEN Attending Unavailable ELOISA OWEN Attending Unavailable MELISSA SABA Attending Unavailable ELOISA OWEN Attending Unavailable ELOISA OWEN Attending Unavailable MELISSA SABA Attending Unavailable Dorcas Aguirre MD Primary Care Provider [phone] SANJUANITA WHIPPLE Attending Unavailable TIMOTHY, DORCAS M [...] needed promethazine (PHENERGAN) suppository 25 mg sennosides, skilled nursing 8.6 mg oral tablet (1 source) Start: [...] (1 source) Patient encounter status; Translations: [Other emt intermediate (current) drug therapy] Onset: 04-05-2017 03-05-2021 Episodic Other aftercare (2 sources) Long-term current use of drug therapy; Translations: [Other emt intermediate (current) drug therapy] Onset: 04-05-2017 04-05-2017 Episodic [...] Reference Range Facility Cytologyon 04-10-2024 Cytology Normal [facility] Comment on above: Result Comment: [facility] [address] [place] [address] Gynecologic Cytology Consultation Patient Name:BECKY PONCE:1945 (Age: 78)Gender:FTaken:4Reported:4Physician(s):Sanjuanita Whipple M.D. ([phone])Copy To: Rec. #:[id number]: #[id number] Final Cytologic Interpretation ThinPrep Pap Test (Cervical): Satisfactory for evaluation. NEGATIVE FOR INTRAEPITHELIAL LESION OR MALIGNANCY. The cytologic changes of atrophy are noted. [facility] [place] Interpretation performed at [address], [place] [address], License number: [id number]. 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 The Pap test is primarily effective for the diagnosis and prevention of squamous cell carcinoma. Regular screening is critical for prevention. ThinPrep liquid-based slides, which meet the Hog Operator criteria for automated screening, have been screened by the ThinPrep Imaging System (as of 01/16/07) along with an additional manual rescreening by a centrifuge separator operator and, if indicated, by a pathologist. HIGH RISK HPV W/GENOon 04-10 HPV 31+33+35+39+45+51+5 2+56+58+59+66+68 DNA STEVE+probe Ql (Cvx) HPV SPECIMEN TYPE ThinPrep HPV 16 Negative (qualifier value) HPV 18 Negative (qualifier value) OTHER HIGH RISK HPV Positive (qualifier value) For the DNA of any or combination of the following HPV types: 31,33,35,45, 52,56,58,59,66 and 68. Normal [facility] Comment on above: Performed By: #### 7 1431-1 #### [facility] ([id number]) [address] [place] [address], FIRST FLOOR [place], [place] [address] [place] [address] LAB ([id number]) [address] [place] [address], [address] [place] [address] No Panel Informationon 03-20 [facility] Plastic Surgery Visit Report on 10-20-2022 Plastic Surgery Visit Report [facility] Plastic Reconstructive Surgery [address], [address] [place], [place] [address] OFFICE VISIT Date of Service: 10/20/22 MR#: [id number] Acct: [id number] Name: BECKY PONCE Rep #: [id number] : 1945 Provider: Dr. 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 Comment on above: Performed By: #### F T3, TSH, T4 #### [facility] [address] [address] [address] Abelardo Barrett Basophils/100 WBC (Bld) 0.4 % Normal 0.2-2.0 [facility] Comment on above: Performed By: #### F T3, TSH, T4 #### [facility] [address] [address] [address] Abelardo Barrett EO # 0.1 103/ul Normal 0.0-0.7 [facility] Comment on above: Performed By: #### F T3, TSH, T4 #### [facility] [address] [address] [address] Abelardo Barrett Eosinophils/100 WBC (Bld) 2.3 % Normal 0.9-7.0 [facility] Comment on above: Performed By: #### F T3, TSH, T4 #### [facility] [address] [place] [address] Dr. Abelardo Barrett Erythrocyte distribution width (RBC) [Ratio] 13.1 % Normal 11.0-15.0 [facility] Comment on above: Performed By: #### F T3, TSH, T4 #### [facility] [address] [place] [address] Dr. Abelardo Barrett Hematocrit (Bld) [Volume fraction] 23.4 % Critically low 36.0-48.0 [facility] Comment on above: Performed By: #### F T3, TSH, T4 #### [facility] [address] [address] [address] Abelardo Barrett Hemoglobin (Bld) [Mass/Vol] 7.7 g/dL Critically low 12.0-16.0 [facility] Comment on above: Performed By: #### F T3, TSH, T4 #### [facility] [address] [place] [address] Dr. Abelardo Barrett IG # 0.02 10e3/ul Normal 0.00-0.03 [facility] Comment on above: Performed By: #### F T3, TSH, T4 #### [facility] [address] [place] [address] Dr. Abelardo Barrett IG % 0.4 % Normal 0.0-0.5 [facility] Comment on above: Performed By: #### F T3, TSH, T4 #### [facility] [address] [place] [address] Dr. Abelardo Barrett LYMPH # 0.9 103/ul Critically low 1.2-3.8 [facility] Comment on above: Performed By: #### F T3, TSH, T4 #### [facility] [address] [place] [address] Dr. Abelardo Barrett Lymphocytes/100 WBC (Bld) 16.5 % Critically low 20.5-60.0 [facility] Comment on above: Performed By: #### F T3, TSH, T4 #### [facility] [address] [place] [address] Dr. Abelardo Barrett MANUAL DIFF REQ NO Normal [facility] Comment on above: Performed By: #### F T3, TSH, T4 #### [facility] [address] [place] [address] Dr. Abelardo Barrett MCH (RBC) [Entitic mass] 30.8 pg Normal 26.7-34.0 [facility] Comment on above: Performed By: #### F T3, TSH, T4 #### [facility] [address] [place] [address] Dr. Abelardo Barrett MCHC (RBC) [Mass/Vol] 32.9 g/dL Normal 29.9-35.2 [facility] Comment on above: Performed By: #### F T3, TSH, T4 #### [facility] [address] [place] [address] Dr. Abelardo Barrett MCV (RBC) [Entitic vol] 93.6 fL Normal 81.0-99.0 [facility] Comment on above: Performed By: #### F T3, TSH, T4 #### [facility] [address] [place] [address] Dr. Abelardo Barrett MONO # 1.0 103/ul Critically high 0.3-0.8 [facility] Comment on above: Performed By: #### F T3, TSH, T4 #### [facility] [address] [place] [address] Dr. Abelardo Barrett Monocytes/100 WBC (Bld) 17.1 % Critically high 1.7-12.0 [facility] Comment on above: Performed By: #### F T3, TSH, T4 #### [facility] [address] [place], [place] [id number] Dr. Abelardo Barrett NEUT # 3.5 103/ul Normal 1.4-6.5 [facility] Comment on above: Performed By: #### F T3, TSH, T4 #### [facility] [address] [place] [address] Dr. Abelardo Barrett Neutrophils/100 WBC (Bld) 63.3 % Normal 43.0-75.0 [facility] Comment on above: Performed By: #### F T3, TSH, T4 #### [facility] [address] [place] [address] Dr. Abelardo Barrett Platelet mean volume (Bld) [Entitic vol] 8.8 fL Critically low 9.5-13.5 [facility] Comment on above: Performed By: #### F T3, TSH, T4 #### [facility] [address] [place] [address] Dr. Abelardo Barrett PLT 255 103/ul Normal 150-450 [facility] Comment on above: Performed By: #### F T3, TSH, T4 #### [facility] [address] [place] [address] Dr. Abelardo Barrett RBC 2.50 106/ul Critically low 4.20-5.40 [facility] Comment on above: Performed By: #### F T3, TSH, T4 #### [facility] [address] [place] [address] Dr. Abelardo Barrett WBC 5.6 103/ul Normal 4.0-11.0 [facility] Comment on above: Performed By: #### F T3, TSH, T4 #### [facility] [address] [place] [address] Dr. Abelardo Barrett ER URINE PROFILEon 3 Bilirubin Ql (U) Negative Normal NEGATIVE [facility] Comment on above: Performed By: #### F T3, TSH, T4 #### [facility] [address] [place] [address] Dr. Abelardo Barrett Clarity (U) CLEAR Normal CLEAR [facility] Comment on above: Performed By: #### F T3, TSH, T4 #### [facility] [address] [address] [address] Abelardo Barrett Color (U) LT. YELLOW Normal YELLOW [facility] Comment on above: Performed By: #### F T3, TSH, T4 #### [facility] [address] [place] [address] Dr. Abelardo BOWMAN A micrscopic examina tion will be performed if indicated. Normal [facility] Comment on above: Performed By: #### F T3, TSH, T4 #### [facility] [address] [place] [address] Dr. Abelardo Barrett Glucose Ql (U) Negative Normal NEGATIVE [facility] Comment on above: Performed By: #### F T3, TSH, T4 #### [facility] [address] [place] [address] Dr. Abelardo Barrett Hemoglobin Ql (U) Negative Normal NEGATIVE [facility] Comment on above: Performed By: #### F T3, TSH, T4 #### [facility] [address] [place] [address] Dr. Abelardo Barrett Ketones Ql (U) Negative Normal NEGATIVE [facility] Comment on above: Performed By: #### F T3, TSH, T4 #### [facility] [address] [place] [address] Dr. Abelardo Barrett LEUKOCYTES TRACE Abnormal NEGATIVE [facility] Comment on above: Performed By: #### F T3, TSH, T4 #### [facility] [address] [place] [address] Dr. Abelardo Barrett Nitrite Ql (U) Negative Normal NEGATIVE [facility] Comment on above: Performed By: #### F T3, TSH, T4 #### [facility] [address] [place] [address] Dr. Abelardo Barrett pH (U) 6.5 [pH] Normal 5-9 [facility] Comment on above: Performed By: #### F T3, TSH, T4 #### [facility] [address] [place] [address] Dr. Abelardo Barrett SPEC GRAVITY <=1.005 Abnormal 1.005-<=1.02 5 [facility] Comment on above: Performed By: #### F T3, TSH, T4 #### [facility] [address] [place] [address] Dr. Abelardo Barrett UA PROTEIN Negative Normal NEGATIVE/ TRACE [facility] Comment on above: Performed By: #### F T3, TSH, T4 #### [facility] [address] [place] [address] Dr. Abelardo Barrett UR MICRO IND INDICATED Normal [facility] Comment on above: Performed By: #### F T3, TSH, T4 #### [facility] [address] [place] [address] Dr. Abelardo Barrett Urobilinogen Qn (U) 0.2 {Erik'U}/dL Normal 0.2 - 1. 0 [facility] Comment on above: Performed By: #### F T3, TSH, T4 #### [facility] [address] [place] [address] Dr. Abelardo Barrett PROF 14(COMP METB)on 023 Albumin [Mass/Vol] 2.2 g/dL Critically low 3.4-5.0 [facility] Comment on above: Performed By: #### F T3, TSH, T4 #### [facility] [address] [place] [address] Dr. Abelardo Barrett Albumin/Globulin [Mass ratio] 0.6 {ratio} Normal [facility] Comment on above: Performed By: #### F T3, TSH, T4 #### [facility] [address] [place] [address] Dr. Abelardo Barrett ALP [Catalytic activity/Vol] 49 U/L Normal 46-116 [facility] Comment on above: Performed By: #### F T3, TSH, T4 #### [facility] [address] [place] [address] Dr. Abelardo Barrett ALT [Catalytic activity/Vol] 36 U/L Normal 14-59 [facility] Comment on above: Performed By: #### F T3, TSH, T4 #### [facility] [address] [place] [address] Dr. Abelardo Barrett Anion gap [Moles/Vol] 12.2 mmol/L Normal [facility] Comment on above: Performed By: #### F T3, TSH, T4 #### [facility] [address] [address] [address] Abelardo Barrett AST [Catalytic activity/Vol] 43 U/L Critically high 15-37 [facility] Comment on above: Performed By: #### F T3, TSH, T4 #### [facility] [address] [address] [address] Abelardo Barrett Bilirubin [Mass/Vol] 0.7 mg/dL Normal 0.2-1.0 [facility] Comment on above: Performed By: #### F T3, TSH, T4 #### [facility] [address] [place] [address] Dr. Abelardo Barrett Calcium [Mass/Vol] 11.0 mg/dL Critically high 8.5-10.1 [facility] Comment on above: Performed By: #### F T3, TSH, T4 #### [facility] [address] [place] [address] Dr. Abelardo Barrett Chloride [Moles/Vol] 98 mmol/L Normal 98-107 [facility] Comment on above: Performed By: #### F T3, TSH, T4 #### [facility] [address] [place] [address] Dr. Abelardo Barrett CO2 [Moles/Vol] 31.7 mmol/L Normal 21.0-32.0 [facility] Comment on above: Performed By: #### F T3, TSH, T4 #### [facility] [address] [place] [address] Dr. Abelardo Barrett Creatinine [Mass/Vol] 1.17 mg/dL Critically high 0.55-1.02 [facility] Comment on above: Performed By: #### F T3, TSH, T4 #### [facility] [address] [place] [address] Dr. Abelardo Barrett EGFR-AF [place] R[place] 55 mL/min/1.73m2 Critically low >=60 [facility] Comment on above: Performed By: #### F T3, TSH, T4 #### [facility] [address] [place] [address] Dr. Ableardo Barrett EGFR-NON AF [place] 45 mL/min/1.73m2 Critically low >=60 [facility] Comment on above: Performed By: #### F T3, TSH, T4 #### [facility] [address] [address] [address] Abelardo Barrett Globulin (S) [Mass/Vol] 3.4 g/dL Normal [facility] Comment on above: Performed By: #### F T3, TSH, T4 #### [facility] [address] [address] [address] Abelardo Barrett Glucose [Mass/Vol] 107 mg/dL Critically high 74-106 [facility] Comment on above: Performed By: #### F T3, TSH, T4 #### [facility] [address] [place] [address] Dr. Abelardo Barrett Potassium [Moles/Vol] 4.9 mmol/L Normal 3.5-5.1 [facility] Comment on above: Performed By: #### F T3, TSH, T4 #### [facility] [address] [address] [address] Abelardo Barrett Protein [Mass/Vol] 5.6 g/dL Critically low 6.4-8.2 [facility] Comment on above: Performed By: #### F T3, TSH, T4 #### [facility] [address] [place] [address] Dr. Abelardo Barrett Sodium [Moles/Vol] 137 mmol/L Normal 136-145 [facility] Comment on above: Performed By: #### F T3, TSH, T4 #### [facility] [address] [place] [address] Dr. Abelardo Barrett Urea nitrogen [Mass/Vol] 27.0 mg/dL Critically high 7.0-18.0 [facility] Comment on above: Performed By: #### F T3, TSH, T4 #### [facility] [address] [address] [address] Abelardo Barrett Urea nitrogen/Creatinine [Mass ratio] 23.1 mg/mg [facility] Comment on above: Performed By: #### F T3, TSH, T4 #### [facility] [address] [place] [address] Dr. Abelardo Barrett URINE MICROSCOPIC ONLYon BACTERIA TRACE Abnormal NONE SEEN [facility] Comment on above: Performed By: #### F T3, TSH, T4 #### [facility] [address] [place] [address] Dr. Abelardo Barrett Bacteria identified Cx Nom (U) NOT INDICATED Normal [facility] Comment on above: Performed By: #### F T3, TSH, T4 #### [facility] [address] [place] [address] Dr. Abelardo Barrett CAST NONE SEEN Normal NONE SEEN [facility] Comment on above: Performed By: #### F T3, TSH, T4 #### [facility] [address] [place] [address] Dr. Abelardo Barrett Crystals LM Nom (Urine sed) NONE SEEN Normal NONE SEEN [facility] Comment on above: Performed By: #### F T3, TSH, T4 #### [facility] [address] [place] [address] Dr. Abelardo Barrett Epithelial cells LM Ql (Urine sed) RARE Normal NONE SEEN /RARE [facility] Comment on above: Performed By: #### F T3, TSH, T4 #### [facility] [address] [place] [address] Dr. Abelardo Barrett MUCOUS NONE SEEN Normal NONE SEEN [facility] Comment on above: Performed By: #### F T3, TSH, T4 #### [facility] [address] [place] [address] Dr. Abelardo Barrett RBC 0-2 Normal 0-2 [facility] Comment on above: Performed By: #### F T3, TSH, T4 #### [facility] [address] [place] [address] Dr. Abelardo Barrett WBC 0-2 Abnormal NONE SEEN [facility] Comment on above: Performed By: #### F T3, TSH, T4 #### [facility] [address] [place] [address] Dr. Abelardo Barrett Bacteria Spec Anaerobe Culto n 05-27-2022 Bacteria identified Anaer cx Nom (Unsp spec) Culture, Anaerobic Status = F No anaerobes grown after 4 days. Normal [facility] Comment on above: Performed By: #### 1 988-5 #### [facility] [address] [place] [address] Bacteria identified Anaer cx Nom (Unsp spec) Culture, Anaerobic Status = F No anaerobes grown after 4 days. Normal [facility] Comment on above: Performed By: #### 1 988-5 #### [facility] [address] [place] [address] Bacteria Tiss Culton 023 Bacteria identified Cx [...] to a previously preliminary verified report. Normal [facility] Comment on above: Performed By: #### 1 988-5 #### [facility] [address] [place] [address] Bacteria identified Cx Nom (Tiss) Culture, Tissue [...] to a previously preliminary verified report. Normal [facility] Comment on above: Performed By: #### 1 988-5 #### [facility] [address] [place] [address] Blood type and Indirect anti body screen panel (Bld)on 05-27-2022 ABO group Nom (Bld) O Normal [facility] Comment on above: Performed By: #### 3 4532-2 #### [facility] [address] [place] [address] Rh Type Negative Normal [facility] Comment on above: Performed By: #### 3 4532-2 #### [facility] [address] [place] [address] ABO group Nom (Bld) O [facility] Blood group antibody screen Ql Negative [facility] Rh Nom (Bld) Negative [facility] Fungus Skin Culton Fungus identified Cx Nom (Skin) Culture, Fungus Status = F No growth at 4 weeks Normal [facility] Comment on above: Performed By: #### 3 4532-2 #### [facility] [address] [place] [address] Fungus identified Cx Nom (Skin) Culture, Fungus Status = F No growth at 4 weeks Normal [facility] Comment on above: Performed By: #### 1 988-5 #### [facility] [address] [place] [address] Glucose Auto test strip (Bld ) [Mass/Vol]on 05-27-2022 Glucose [Mass/Vol] 98 mg/dL Normal 70-99 [facility] Comment on above: Performed By: #### 2 340-8 #### [facility] [address] [place] [address] Glucose [Mass/Vol] 98 mg/dL 70 - 99 mg/dL [facility] Interpretation and review of laboratory results Normal [facility] Mycobacterium Spec Culton Mycobacterium sp identified Org specific cx Nom (Unsp spec) Culture AFB Status = C No growth at 8 weeks AFB Stain Status = F No acid fast bacilli seen Normal [facility] Comment on above: Performed By: #### 1 988-5 #### [facility] [address] [place] [address] Mycobacterium sp identified Org specific cx Nom (Unsp spec) Culture AFB Status = C No growth at 8 weeks AFB Stain Status = F No acid fast bacilli seen Normal [facility] Comment on above: Performed By: #### 5 43-9 #### [facility] [address] [place] [address] Performed By: #### 1 988-5 #### [facility] [address] [place] [address] Pathology studyon 05-27-2022 Pathology study Left hip [...] this case was performed at [facility]. These tests have not been [...] was performed at [facility], [address] [place], [place] [id number]. Microscopic examination was performed. Normal [facility] Comment on above: Performed By: #### 1 1526-1 #### [facility] [address] [place] [address] [facility] [address] [place] [address] SARS-CoV-2 (COVID-19) RNA NA A+probe Ql (Resp)on 05-27-2022 Interpretation and review of laboratory results Normal [facility] SARS-CoV-2 (COVID-19) RdRp gene STEVE+probe Ql (Resp) Not detected Not Detected [facility] SARS-CoV-2 RNA Resp Ql STEVE+p robeon 05-27-2022 SARS-CoV-2 (COVID-19) RNA STEVE+probe Ql (Resp) Not detected Normal Not Detected [facility] Comment on above: Performed By: #### 9 4500-6 #### [facility] [facility] [address] [facility] [place] [address] XR FLUORO UP TO 1 HOUR (STAT ISTICS)(NO REPORT)on 05-27-2022 XR FLUORO UP TO 1 HOUR (STATISTICS)(NO REPORT) This order has been auto-finalized and does not contain a result. Normal [facility] XR Fluoro Up To 1 Hour (Stat [...] Self Edit Transcribed Date: 05/27/2022 14:17 Normal [facility] XR Pelvis 1-2 Viewson 2022 No acute [...] By: Self Edit Transcribed Date: 05/27/2022 14:17 [place] [facility] Study observation (narrative) [facility] XR Pelvis 1-2 ViewsOrdered B y: Miguelangel Martinez on 05-27-2022 [employer] Work Phone: Blood type and Indirect anti body screen panel (Bld)on 05-17-2022 ABO group Nom (Bld) O Normal [facility] Comment on above: Performed By: #### 3 4532-2 #### [facility] ([facility] [address] [place] [address] Rh Type Negative Normal [facility] Comment on above: Performed By: #### 3 4532-2 #### [facility] [address] [place] [id number] CRP [Mass/Vol]on 05-17-2022 Anion gap [Moles/Vol] 11 mmol/L Normal 6-18 [facility] Comment on above: Order Comment: Sampl e received unlabeled or with name discrepancy. The Physician, Clinican or authorized designee has authorized the release of the results and assumes responsibility for sample identification. Performed By: #### 1 988-5 #### [facility] [address] [place] [address] Calcium [Mass/Vol] 10.9 mg/dL High 8.9-10.3 [facility] Comment on above: Order Comment: Sampl e received unlabeled or with name discrepancy. The Physician, Clinican or authorized designee has authorized the release of the results and assumes responsibility for sample identification. Performed By: #### 1 988-5 #### [facility] [address] [place] [address] Chloride [Moles/Vol] 102 mmol/L Normal 98-107 [facility] Comment on above: Order Comment: Sampl e received unlabeled or with name discrepancy. The Physician, Clinican or authorized designee has authorized the release of the results and assumes responsibility for sample identification. Performed By: #### 1 988-5 #### [facility] [address] [place] [address] CO2 [Moles/Vol] 27 mmol/L Normal 22-32 [facility] Comment on above: Order Comment: Sampl e received unlabeled or with name discrepancy. The Physician, Clinican or authorized designee has authorized the release of the results and assumes responsibility for sample identification. Performed By: #### 1 988-5 #### [facility] [address] [place] [address] Creatinine [Mass/Vol] 0.92 mg/dL Normal 0.60-1.30 [facility] Comment on above: Order Comment: Sampl e received unlabeled or with name discrepancy. The Physician, Clinican or authorized designee has authorized the release of the results and assumes responsibility for sample identification. Performed By: #### 1 988-5 #### [facility] [address] [place] [address] GFR/1.73 sq M.predicted among non-blacks MDRD (S/P/Bld) [Vol rate/Area] 65 mL/min/{1.73_m2} Normal >=60 [facility] Comment on above: Order Comment: Sampl e received unlabeled or with name discrepancy. The Physician, Clinican or authorized designee has authorized the release of the results and assumes responsibility for sample identification. Result Comment: Effe ctive February 07, 2022, calculation based on the?Chronic Kidney Disease Epidemiology Collaboration (CKD-EPI) equation refit?without adjustment for race. Performed By: #### 1 988-5 #### [facility] [address] [place] [address] Glucose [Mass/Vol] 86 mg/dL Normal 70-99 [facility] Comment on above: Order Comment: Sampl e received unlabeled or with name discrepancy. The Physician, Clinican or authorized designee has authorized the release of the results and assumes responsibility for sample identification. Performed By: #### 1 988-5 #### [facility] [address] [place] [address] Potassium [Moles/Vol] 4.6 mmol/L Normal 3.6-5.1 [facility] Comment on above: Order Comment: Sampl e received unlabeled or with name discrepancy. The Physician, Clinican or authorized designee has authorized the release of the results and assumes responsibility for sample identification. Performed By: #### 1 988-5 #### [facility] [address] [place] [address] Sodium [Moles/Vol] 140 mmol/L Normal 136-145 [facility] Comment on above: Order Comment: Sampl e received unlabeled or with name discrepancy. The Physician, Clinican or authorized designee has authorized the release of the results and assumes responsibility for sample identification. Performed By: #### 1 988-5 #### [facility] [address] [place] [address] Urea nitrogen [Mass/Vol] 36 mg/dL High 8-20 [facility] Comment on above: Order Comment: Sampl e received unlabeled or with name discrepancy. The Physician, Clinican or authorized designee has authorized the release of the results and assumes responsibility for sample identification. Performed By: #### 1 988-5 #### [facility] [address] [place] [address]648 Urea nitrogen/Creatinine [Mass ratio] 39.1 mg/mg High 12.0-20.0 [facility] Comment on above: Order Comment: Sampl e received unlabeled or with name discrepancy. The Physician, Clinican or authorized designee has authorized the release of the results and assumes responsibility for sample identification. Performed By: #### 1 988-5 #### [facility] [address] [place] [address] Hemogram and platelets WO di fferential panel (Bld)on 05-17-2022 Sed Rate 18 mm/hr Normal 0-20 [facility] Comment on above: Performed By: #### 2 4317-0 #### [facility] [address] [place] [address] MG MAMM SCREEN 3D YONI CADon 04-07-2022 MG MAMM SCREEN 3D YONI CAD Patient: BECKY PONCE Exam Date: 04/07/2022 : 1945 Gender:F Ordering : DR KERVIN OSORIO Admission #: [id number] Family : DR DORCAS AGUIRRE . Order #: [id number] CLICK HERE TO VIEW EXAM RADIOLOGY REPORT [...] Treatments None Family Cancers None LOCATION: [facility] BREAST COMPOSITION: Heterogeneously dense,which may obscure [...] MD on 04/07/2022 at 11:00 Normal [facility] CBC AUTO DIFFon 03-30-2022 BASO # 0.0 103/ul Normal 0.0-0.1 [facility] Comment on above: Performed By: #### F T3, TSH, T4 #### [facility] [address] [address] [address] Abelardo Barrett Basophils/100 WBC (Bld) 0.9 % Normal 0.2-2.0 [facility] Comment on above: Performed By: #### F T3, TSH, T4 #### [facility] [address] [address] [address] Abelardo Barrett EO # 0.1 103/ul Normal 0.0-0.7 [facility] Comment on above: Performed By: #### F T3, TSH, T4 #### [facility] [address] [place], [place] [address] Dr. Abelardo Barrett Eosinophils/100 WBC (Bld) 2.0 % Normal 0.9-7.0 [facility] Comment on above: Performed By: #### F T3, TSH, T4 #### [facility] [address] [address] [address] Abelardo Barrett Erythrocyte distribution width (RBC) [Ratio] 12.5 % Normal 11.0-15.0 [facility] Comment on above: Performed By: #### F T3, TSH, T4 #### [facility] [address] [place] [address] Dr. Abelardo Barrett Hematocrit (Bld) [Volume fraction] 37.9 % Normal 36.0-48.0 [facility] Comment on above: Performed By: #### F T3, TSH, T4 #### [facility] [address] [place] [address] Dr. Abelardo Barrett Hemoglobin (Bld) [Mass/Vol] 12.6 g/dL Normal 12.0-16.0 [facility] Comment on above: Performed By: #### F T3, TSH, T4 #### [facility] [address] [place] [address] Dr. Abelardo Barrett IG # 0.01 10e3/ul Normal 0.00-0.03 [facility] Comment on above: Performed By: #### F T3, TSH, T4 #### [facility] [address] [place] [address] Dr. Abelardo Barrett IG % 0.2 % Normal 0.0-0.5 [facility] Comment on above: Performed By: #### F T3, TSH, T4 #### [facility] [address] [place] [address] Dr. Abelardo Barrett LYMPH # 1.2 103/ul Normal 1.2-3.8 [facility] Comment on above: Performed By: #### F T3, TSH, T4 #### [facility] [address] [place] [address] Dr. Abelardo Barrett Lymphocytes/100 WBC (Bld) 26.5 % Normal 20.5-60.0 [facility] Comment on above: Performed By: #### F T3, TSH, T4 #### [facility] [address] [place] [address] Dr. Abelardo Barrett MANUAL DIFF REQ NO Normal [facility] Comment on above: Performed By: #### F T3, TSH, T4 #### [facility] [address] [place] [address] Dr. Abelardo Barrett MCH (RBC) [Entitic mass] 29.9 pg Normal 26.7-34.0 [facility] Comment on above: Performed By: #### F T3, TSH, T4 #### [facility] [address] [place] [address] Dr. Abelardo Barrett MCHC (RBC) [Mass/Vol] 33.2 g/dL Normal 29.9-35.2 [facility] Comment on above: Performed By: #### F T3, TSH, T4 #### [facility] [address] [place] [address] Dr. Abelardo Barrett MCV (RBC) [Entitic vol] 90.0 fL Normal 81.0-99.0 [facility] Comment on above: Performed By: #### F T3, TSH, T4 #### [facility] [address] [place] [address] Dr. Abelardo Barrett MONO # 0.5 103/ul Normal 0.3-0.8 [facility] Comment on above: Performed By: #### F T3, TSH, T4 #### [facility] [address] [place] [address] Dr. Abelardo Barrett Monocytes/100 WBC (Bld) 10.1 % Normal 1.7-12.0 [facility] Comment on above: Performed By: #### F T3, TSH, T4 #### [facility] [address] [place] [address] Dr. Abelardo Barrett NEUT # 2.8 103/ul Normal 1.4-6.5 [facility] Comment on above: Performed By: #### F T3, TSH, T4 #### [facility] [address] [place] [address] Dr. Abelardo Barrett Neutrophils/100 WBC (Bld) 60.3 % Normal 43.0-75.0 [facility] Comment on above: Performed By: #### F T3, TSH, T4 #### [facility] [address] [place] [address] Dr. Abelardo Barrett Platelet mean volume (Bld) [Entitic vol] 8.6 fL Critically low 9.5-13.5 [facility] Comment on above: Performed By: #### F T3, TSH, T4 #### [facility] [address] [address] [address] Abelardo Barrett PLT 248 103/ul Normal 150-450 [facility] Comment on above: Performed By: #### F T3, TSH, T4 #### [facility] [address] [address] [address] Abelardo Barrett RBC 4.21 106/ul Normal 4.20-5.40 [facility] Comment on above: Performed By: #### F T3, TSH, T4 #### [facility] [address] [address] [address] Abelardo Barrett WBC 4.6 103/ul Normal 4.0-11.0 [facility] Comment on above: Performed By: #### F T3, TSH, T4 #### [facility] [address] [place] [address] Dr. Abelardo Barrett FREE THYROXINE INDEX T7on FTI 2.73 Normal 1.30-4.50 [facility] Comment on above: Performed By: #### C MP, LIPID #### [facility] [address] [address] [address] Abelardo Barrett T3U 35.0 % Normal 30.0-39.0 [facility] Comment on above: Performed By: #### C MP, LIPID #### [facility] [address] [place] [address] Dr. Abelardo Barrett T4 [Mass/Vol] 7.80 ug/dL Normal 4.80-13.90 [facility] Comment on above: Performed By: #### C MP, LIPID #### [facility] [address] [place] [address] Dr. Abelardo Barrett GLYCOHEMOGLOBIN A1Con 2021 ADA RECOMMENDATION SEE BELOW Normal [facility] Comment on above: Result Comment: ADA RECOMMENDED LIMIT 4.0 - 6.0 ADA THERAPEUTIC TARGET < 7.0 ACTION SUGGESTED > 7.0 Performed By: #### C MP, LIPID #### [facility] [address] [place] [address] Dr. Abelardo Barrett Glucose [Mass/Vol] 123 mg/dL Normal [facility] Comment on above: Performed By: #### C MP, LIPID #### [facility] [address] [address] [address] Abelardo Barrett HbA1c (Bld) [Mass fraction] 5.9 % Normal 4.5-6.2 [facility] Comment on above: Performed By: #### C MP, LIPID #### [facility] [id number] Abelardo Barrett IRONon 03-30-2022 Iron [Mass/Vol] 94.0 ug/dL Normal 50.0-170.0 [facility] Comment on above: Performed By: #### C MP, LIPID #### [facility] [address] [place] [address] Dr. Abelardo Barrett LIPID PROFILEon 03-30-2022 CHOL-HDL RATIO NORM SEE BELOW Normal [facility] Comment on above: Result Comment: 3.3 - 4.4 LOW RISK 4.4 - 7.1 AVERAGE RISK 7.1 - 11.0 MODERATE RISK >11.0 HIGH RISK Performed By: #### C MP, LIPID #### [facility] [address] [place] [address] Dr. Abelardo Barrett Cholesterol [Mass/Vol] 186 mg/dL Normal <=200 [facility] Comment on above: Performed By: #### C MP, LIPID #### [facility] [address] [place] [address] Dr. Abelardo Barrett Cholesterol in HDL [Mass/Vol] 86 mg/dL Critically high 40-60 [facility] Comment on above: Performed By: #### C MP, LIPID #### [facility] [id number] Abelardo Barrett Cholesterol in LDL [Mass/Vol] 88.8 mg/dL Normal [facility] Comment on above: Performed By: #### C MP, LIPID #### [facility] [address] [place] [address] Dr. Abelardo Barrett Cholesterol.total/C holesterol in HDL [Mass ratio] 2.2 {ratio} Normal [facility] Comment on above: Performed By: #### C MP, LIPID #### [facility] [address] [address] [address] Abelardo Barrett HDL NORMAL > or = 60 mg/dl - LO W CARDIOVASCULAR RISK <40 mg/dl - HIGH CARDIOVASCULAR RISK Normal [facility] Comment on above: Performed By: #### C MP, LIPID #### [facility] [address] [address] [address] Abelardo Barrett LDL CALC NORMAL SEE BELOW Normal [facility] Comment on above: Result Comment: <100 mg/dl OPTIMAL 100 - 129 mg/dl NEAR OR ABOVE OPTIMAL 130 - 159 mg/dl BORDERLINE HIGH 160 - 189 mg/dl HIGH >190 mg/dl VERY HIGH Performed By: #### C MP, LIPID #### [facility] [address] [place] [address] Dr. Abelardo Barrett Triglyceride [Mass/Vol] 56 mg/dL Normal <=150 [facility] Comment on above: Performed By: #### C MP, LIPID #### [facility] [address] [place] [address] Dr. Abelardo Barrett VLDL CALC 11.2 mg/dL Normal [facility] Comment on above: Performed By: #### C MP, LIPID #### [facility] [address] [place] [address] Dr. Abelardo Barrett PROF 14(COMP METB)on 022 Albumin [Mass/Vol] 3.7 g/dL Normal 3.4-5.0 [facility] Comment on above: Performed By: #### C MP, LIPID #### [facility] [address] [place] [address] Dr. Abelardo Barrett Albumin/Globulin [Mass ratio] 1.0 {ratio} Normal [facility] Comment on above: Performed By: #### C MP, LIPID #### [facility] [address] [place] [address] Dr. Abelardo Barrett ALP [Catalytic activity/Vol] 59 U/L Normal 46-116 [facility] Comment on above: Performed By: #### C MP, LIPID #### [facility] [address] [address] [address] Abelardo Barrett ALT [Catalytic activity/Vol] 30 U/L Normal 14-59 [facility] Comment on above: Performed By: #### C MP, LIPID #### [facility] [address] [address] [address] Abelardo Barrett Anion gap [Moles/Vol] 9.0 mmol/L Normal [facility] Comment on above: Performed By: #### C MP, LIPID #### [facility] [address] [address] [address] Abelardo Barrett AST [Catalytic activity/Vol] 17 U/L Normal 15-37 [facility] Comment on above: Performed By: #### C MP, LIPID #### [facility] [address] [place] [address] Dr. Abelardo Barrett Bilirubin [Mass/Vol] 0.6 mg/dL Normal 0.2-1.0 [facility] Comment on above: Performed By: #### C MP, LIPID #### [facility] [address] [place] [address] Dr. Abelardo Barrett Calcium [Mass/Vol] 9.1 mg/dL Normal 8.5-10.1 [facility] Comment on above: Performed By: #### C MP, LIPID #### [facility] [address] [address] [address] Abelardo Barrett Chloride [Moles/Vol] 104 mmol/L Normal 98-107 [facility] Comment on above: Performed By: #### C MP, LIPID #### [facility] [address] [place] [address] Dr. Abelardo Barrett CO2 [Moles/Vol] 30.6 mmol/L Normal 21.0-32.0 [facility] Comment on above: Performed By: #### C MP, LIPID #### [facility] [address] [address] [address] Abelardo Barrett Creatinine [Mass/Vol] 0.85 mg/dL Normal 0.55-1.02 [facility] Comment on above: Performed By: #### C MP, LIPID #### [facility] [address] [address] [address] Abelardo Barrett EGFR-AF [place]STA RICAN >60 Normal >=60 [facility] Comment on above: Performed By: #### C MP, LIPID #### [facility] [address] [place] [address] Dr. Abelardo Barrett EGFR-NON AF [place] RICAN >60 Normal >=60 [facility] Comment on above: Performed By: #### C MP, LIPID #### [facility] [address] [address] [address] Abelardo Barrett Globulin (S) [Mass/Vol] 3.6 g/dL Normal [facility] Comment on above: Performed By: #### C MP, LIPID #### [facility] [address] [address] [address] Abelardo Barrett Glucose [Mass/Vol] 93 mg/dL Normal 74-106 [facility] Comment on above: Performed By: #### C MP, LIPID #### [facility] [address] [address] [address] Abelardo Barrett Potassium [Moles/Vol] 4.6 mmol/L Normal 3.5-5.1 [facility] Comment on above: Performed By: #### C MP, LIPID #### [facility] [address] [place] [address] Dr. Abelardo Barrett Protein [Mass/Vol] 7.3 g/dL Normal 6.4-8.2 [facility] Comment on above: Performed By: #### C MP, LIPID #### [facility] [address] [place] [address] Dr. Abelardo Barrett Sodium [Moles/Vol] 139 mmol/L Normal 136-145 [facility] Comment on above: Performed By: #### C MP, LIPID #### [facility] [address] [address] [address] Abelardo Barrett Urea nitrogen [Mass/Vol] 33.0 mg/dL Critically high 7.0-18.0 [facility] Comment on above: Performed By: #### C MP, LIPID #### [facility] [address] [address] [address] Abelardo Barrett Urea nitrogen/Creatinine [Mass ratio] 38.8 mg/mg Normal [facility] Comment on above: Performed By: #### C MP, LIPID #### [facility] [address] [place] [address] Dr. Abelardo Barrett TSHon 03-30-2022 TSH Qn m[IU]/L Critically low 0.358-3.740 [facility] Comment on above: Performed By: #### C MP, LIPID #### [facility] [address] [place] [address] Dr. Abelardo Barrett T4 LABCORPon 01-16-2022 T4 [Mass/Vol] 8.3 ug/dL Normal 4.5-12.0 [facility] Comment on above: Performed By: #### C MP, LIPID #### [facility] [address] [place] [address] Dr. Abelardo Barrett FREE T3on 01-15-2022 FREE T3 3.34 pg/mlL Normal 2.18-3.98 [facility] Comment on above: Performed By: #### C MP, LIPID #### [facility] [address] [address] [address] Abelardo Barrett TSHon 01-15-2022 TSH Qn m[IU]/L Critically low 0.358-3.740 [facility] Comment on above: Performed By: #### C MP, LIPID #### [facility] [address] [place] [address] Dr. Abelardo Barrett BLOOD GASES BTYon 12-14-2021 02 MODE ROOM AIR Normal [facility] Comment on above: Performed By: #### A BG #### [facility] [address] [place] [address] Dr. Abelardo CARSON TEST Positive Normal [facility] Comment on above: Performed By: #### A BG #### [facility] [address] [place] [address] Dr. Abelardo Barrett Base excess Calc (Bld) [Moles/Vol] 0.7 mmol/L Normal -2.0-2.0 [facility] Comment on above: Performed By: #### A BG #### [facility] [address] [address] [address] Abelardo Barrett BIPAP PRESSURE Normal [facility] Comment on above: Performed By: #### A BG #### [facility] [address] [address] [address] Abelardo Barrett CO2 [Moles/Vol] 51.6 mmol/L Critically high 23.0-28.0 [facility] Comment on above: Performed By: #### A BG #### [facility] [address] [address] [address] Abelardo Barrett CPAP [facility] Comment on above: Performed By: #### A BG #### [facility] [address] [place] [address] Dr. Abelardo Barrett FIO2 [facility] Comment on above: Performed By: #### A BG #### [facility] [address] [address] [address] Abelardo Barrett HCO3 (Bld) [Moles/Vol] 25.0 mmol/L Normal 22.0-26.0 [facility] Comment on above: Performed By: #### A BG #### [facility] [address] [place] [address] Dr. Abelardo Barrett LPM [facility] Comment on above: Performed By: #### A BG #### [facility] [address] [place] [address] Dr. Abelardo Barrett MINUTE VOLUME Normal [facility] Comment on above: Performed By: #### A BG #### [facility] [address] [place] [address] Dr. Abelardo Barrett Oxygen (Bld) [Partial pressure] 83.4 mm[Hg] Normal 80.0-100.0 [facility] Comment on above: Performed By: #### A BG #### [facility] [address] [place] [address] Dr. Abelardo Barrett Oxygen saturation in Blood 97.1 % Normal 95.0-100.0 [facility] Comment on above: Performed By: #### A BG #### [facility] [address] [address] [address] Abelardo Barrett PCO2 39.3 mmHg Normal 35.0-45.0 [facility] Comment on above: Performed By: #### A BG #### [facility] [address] [address] [address] Abelardo Barrett PEEP [facility] Comment on above: Performed By: #### A BG #### [facility] [address] [address] [address] Abelardo Barrett pH (Bld) 7.415 [pH] Normal 7.350-7.450 [facility] Comment on above: Performed By: #### A BG #### [facility] [address] [address] [address] Abelardo Barrett [facility] Comment on above: Performed By: #### A BG #### [facility] [address] [place] [address] Dr. Abelardo Barrett [facility] Comment on above: Performed By: #### A BG #### [facility] [address] [address] [address] Abelardo Barrett PUNCTURE SITE RR [facility] Comment on above: Performed By: #### A BG #### [facility] [address] [address] [address] Abelardo Barrett RATE [facility] Comment on above: Performed By: #### A BG #### [facility] [address] [place] [address] Dr. Abelardo Barrett VENT MODE [facility] Comment on above: Performed By: #### A BG #### [facility] [address] [address] [address] Abelardo Barrett [facility] Comment on above: Performed By: #### A BG #### [facility] [address] [address] [address] Abelardo Barrett Cardiovascular Lab Reporton 11-19-2021 Cardiovascular Lab Report [facility]: [id number] Physician: Jian Dean, Department of M.D. Medicine Service Date: 11/19/2021 Division of Birthdate: 1945 Cardiology Room #: Adult Cardiovascular Services [place] [address] [address]esh [address]orne. [place] [id number] Cardiovascular Laboratory Report FINAL IMPRESSIONS: 1. Angiographically nonobstructive coronary arteries. 2. Normal global left ventricular systolic function by noninvasive imaging. RECOMMENDATIONS: 1. Consider alternate etiologies for the patient's shortness of breath, mainly pulmonary; pulmonary function tests have been ordered. 2. Aggressive cardiovascular risk factor modification. 3. Follow up with Dr. Dean in the next 3-4 weeks in the [place] office. 4. Follow up with Dr. Aguirre [...] the left radial artery was obtained. A 6-Swiss sheath was inserted without difficulty. Bilateral selective coronary angiography was performed using 5-Swiss JR4 and JL4 catheters. After reviewing the [...] Dean M.D. Date Trans: 11/19/2021 02:08 P/mmo [id number] cc: Dorcas Aguirre M.D. [address] [place] [facility] [id number] Normal [facility]on [facility]-30 SARS-CoV-2 (COVID-19) RNA STEVE+probe Ql (Unsp spec) Not detected Normal NOT DETECTED [facility] Comment on above: Result Comment: This test is not yet approved or cleared by the [place] FDA. When there are no FDA-approved or cleared tests available, and other criteria are met, FDA can make tests available under an emergency access mechanism called an Emergency Use Authorization (EUA). The EUA for this test is supported by the [place] of Health and Human Service's (HHS's) declaration [...] By: #### F T3, TSH, T4 #### [facility] [address] [address] [address] Abelardo Barrett CBC AUTO DIFFon 11-14-2021 BASO # 0.0 103/ul Normal 0.0-0.1 [facility] Comment on above: Performed By: #### F T3, TSH, T4 #### [facility] [address] [place] [address] Dr. Abelardo Barrett Basophils/100 WBC (Bld) 0.8 % Normal 0.2-2.0 [facility] Comment on above: Performed By: #### F T3, TSH, T4 #### [facility] [address] [place] [address] Dr. Abelardo Barrett EO # 0.1 103/ul Normal 0.0-0.7 [facility] Comment on above: Performed By: #### F T3, TSH, T4 #### [facility] [address] [place] [address] Dr. Abelardo Barrett Eosinophils/100 WBC (Bld) 2.1 % Normal 0.9-7.0 [facility] Comment on above: Performed By: #### F T3, TSH, T4 #### [facility] [address] [place] [address] Dr. Abelardo Barrett Erythrocyte distribution width (RBC) [Ratio] 12.0 % Normal 11.0-15.0 [facility] Comment on above: Performed By: #### F T3, TSH, T4 #### [facility] [address] [place] [address] Dr. Abelardo Barrett Hematocrit (Bld) [Volume fraction] 36.2 % Normal 36.0-48.0 [facility] Comment on above: Performed By: #### F T3, TSH, T4 #### [facility] [address] [place] [address] Dr. Abelardo Barrett Hemoglobin (Bld) [Mass/Vol] 11.6 g/dL Critically low 12.0-16.0 [facility] Comment on above: Performed By: #### F T3, TSH, T4 #### [facility] [address] [place] [address] Dr. Abelardo Barrett IG # 0.01 10e3/ul Normal 0.00-0.03 [facility] Comment on above: Performed By: #### F T3, TSH, T4 #### [facility] [address] [address] [address] Abelardo Barrett IG % 0.2 % Normal 0.0-0.5 [facility] Comment on above: Performed By: #### F T3, TSH, T4 #### [facility] [address] [address] [address] Abelardo Barrett LYMPH # 0.8 103/ul Critically low 1.2-3.8 [facility] Comment on above: Performed By: #### F T3, TSH, T4 #### [facility] [address] [address] [address] Abelardo Barrett Lymphocytes/100 WBC (Bld) 15.8 % Critically low 20.5-60.0 [facility] Comment on above: Performed By: #### F T3, TSH, T4 #### [facility] [address] [place] [address] Dr. Abelardo Barrett MANUAL DIFF REQ NO Normal [facility] Comment on above: Performed By: #### F T3, TSH, T4 #### [facility] [address] [place] [address] Dr. Abelardo Barrett MCH (RBC) [Entitic mass] 30.2 pg Normal 26.7-34.0 [facility] Comment on above: Performed By: #### F T3, TSH, T4 #### [facility] [address] [place] [address] Dr. Abelardo Barrett MCHC (RBC) [Mass/Vol] 32.0 g/dL Normal 29.9-35.2 [facility] Comment on above: Performed By: #### F T3, TSH, T4 #### [facility] [address] [address] [address] Abelardo Barrett MCV (RBC) [Entitic vol] 94.3 fL Normal 81.0-99.0 [facility] Comment on above: Performed By: #### F T3, TSH, T4 #### [facility] [address] [place] [address] Dr. Abelardo Barrett MONO # 0.4 103/ul Normal 0.3-0.8 [facility] Comment on above: Performed By: #### F T3, TSH, T4 #### [facility] [address] [address] [address] Abelardo Barrett Monocytes/100 WBC (Bld) 8.3 % Normal 1.7-12.0 [facility] Comment on above: Performed By: #### F T3, TSH, T4 #### [facility] [address] [place] [address] Dr. Abelardo Barrett NEUT # 3.8 103/ul Normal 1.4-6.5 [facility] Comment on above: Performed By: #### F T3, TSH, T4 #### [facility] [address] [place] [address] Dr. Abelardo Barrett Neutrophils/100 WBC (Bld) 72.8 % Normal 43.0-75.0 [facility] Comment on above: Performed By: #### F T3, TSH, T4 #### [facility] [address] [place] [address] Dr. Abelardo Barrett Platelet mean volume (Bld) [Entitic vol] 8.6 fL Critically low 9.5-13.5 [facility] Comment on above: Performed By: #### F T3, TSH, T4 #### [facility] [address] [place] [address] Dr. Abelardo Barrett PLT 244 103/ul Normal 150-450 [facility] Comment on above: Performed By: #### F T3, TSH, T4 #### [facility] [address] [place] [address] Dr. Abelardo Barrett RBC 3.84 106/ul Critically low 4.20-5.40 [facility] Comment on above: Performed By: #### F T3, TSH, T4 #### [facility] [address] [place] [address] Dr. Abelardo Barrett WBC 5.2 103/ul Normal 4.0-11.0 [facility] Comment on above: Performed By: #### F T3, TSH, T4 #### [facility] [address] [place] [address] Dr. Abelardo Barrett PROF CHEM 8 (BAS METB)on Anion gap [Moles/Vol] 12.0 mmol/L Normal [facility] Comment on above: Performed By: #### B MP, HSTROPN #### [facility] [address] [place] [address] Dr. Abelardo Barrett Calcium [Mass/Vol] 9.2 mg/dL Normal 8.5-10.1 [facility] [place] Comment on above: Performed By: #### B MP, HSTROPN #### [facility] [address] [address] [address] Abelardo Barrett Chloride [Moles/Vol] 101 mmol/L Normal 98-107 [facility] Comment on above: Performed By: #### B VIBHA, HSTROPN #### [facility] [address] [place] [address] Dr. Abelardo Barrett CO2 [Moles/Vol] 26.3 mmol/L Normal 21.0-32.0 [facility] Comment on above: Performed By: #### B MP, HSTROPN #### [facility] [address] [address] [address] Abelardo Barrett Creatinine [Mass/Vol] 0.90 mg/dL Normal 0.55-1.02 [facility] Comment on above: Performed By: #### B VIBHA, HSTROPN #### [facility] [address] [place] [address] Dr. Abelardo Barrett EGFR-AF COSTA RICAN >60 Normal >=60 [facility] Comment on above: Performed By: #### B MP, HSTROPN #### [facility] [address] [place] [address] Dr. Abelardo Barrett EGFR-NON AF COSTA RICAN >60 Normal >=60 [facility] Comment on above: Performed By: #### B MP, HSTROPN #### [facility] [address] [place] [address] Dr. Abelardo Barrett Glucose [Mass/Vol] 101 mg/dL Normal 74-106 [facility] [place] Comment on above: Performed By: #### B MP, HSTROPN #### [facility] [address] [address] [address] Abelardo Barrett Potassium [Moles/Vol] 4.3 mmol/L Normal 3.5-5.1 [facility] Comment on above: Performed By: #### B MP, HSTROPN #### [facility] [address] [address] [address] Abelardo Barrett Sodium [Moles/Vol] 135 mmol/L Critically low 136-145 [facility] Comment on above: Performed By: #### B MP, HSTROPN #### [facility] [address] [address] [address] Abelardo Barrett Urea nitrogen [Mass/Vol] 34.0 mg/dL Critically high 7.0-18.0 [facility] Comment on above: Performed By: #### B MP, HSTROPN #### [facility] [address] [address] [address] Abelardo Barrett Urea nitrogen/Creatinine [Mass ratio] 37.8 mg/mg Normal [facility] Comment on above: Performed By: #### B MP, HSTROPN #### [facility] [address] [place] [address] Dr. Abelardo Barrett TROPONIN, HIGH SENSITIVITYon 11-14-2021 HSTROP 5.8 pg/mL Normal 4.0-51.3 [facility] Comment on above: Result Comment: CUT- OFF POINTS HAVE BEEN ESTABLISHED BASED ON THE FOURTH UNIVERSAL DEFINITIONS OF MYOCARDIAL INFARCTION. THE UPPER REFERENCE LIMIT (URL) OF TROPONIN, DEFINED THE 99TH PERCENTILE OF cTnI DISTRIBUTION IN A REFERENCE POPULATION, HAS BEEN CONFIRMED THE DECISION THRESHOLD FOR AK DIAGNOSIS. Performed By: #### C MP, LIPID #### [facility] [address] [address] [address] Abelardo Barrett HSTROP 5.8 pg/mL Normal 4.0-51.3 [facility] Comment on above: Result Comment: CUT- OFF POINTS HAVE BEEN ESTABLISHED BASED ON THE FOURTH UNIVERSAL DEFINITIONS OF MYOCARDIAL INFARCTION. THE UPPER REFERENCE LIMIT (URL) OF TROPONIN, DEFINED THE 99TH PERCENTILE OF cTnI DISTRIBUTION IN A REFERENCE POPULATION, HAS BEEN CONFIRMED THE DECISION THRESHOLD FOR AK DIAGNOSIS. Performed By: #### B MP, HSTROPN #### [facility] [address] [address] [address] Abelardo Barrett XR CHEST 1 Von [...] LETICIA HOYT Date: 2021-11-14 12:45 Normal [facility] CBC AUTO DIFFon 10-27-2021 BASO # 0.1 103/ul Normal 0.0-0.1 [facility] Comment on above: Performed By: #### C BC #### [facility] [address] [address] [address] Abelardo Barrett Basophils/100 WBC (Bld) 1.1 % Normal 0.2-2.0 [facility] Comment on above: Performed By: #### C BC #### [facility] [address] [address] [address] Abelardo Barrett EO # 0.2 103/ul Normal 0.0-0.7 [facility] Comment on above: Performed By: #### C BC #### [facility] [address] [address] [address] Abelardo Barrett Eosinophils/100 WBC (Bld) 3.9 % Normal 0.9-7.0 [facility] Comment on above: Performed By: #### C BC #### [facility] [address] [address] [address] Abelardo Barrett Erythrocyte distribution width (RBC) [Ratio] 12.1 % Normal 11.0-15.0 [facility] Comment on above: Performed By: #### C BC #### [facility] [address] [place] [address] Dr. Abelardo Barrett Hematocrit (Bld) [Volume fraction] 33.6 % Critically low 36.0-48.0 [facility] Comment on above: Performed By: #### C BC #### [facility] [address] [place] [address] Dr. Abeladro Barrett Hemoglobin (Bld) [Mass/Vol] 11.1 g/dL Critically low 12.0-16.0 [facility] Comment on above: Performed By: #### C BC #### [facility] [address] [place] [address] Dr. Abelardo Barrett IG # 0.01 10e3/ul Normal 0.00-0.03 [facility] Comment on above: Performed By: #### C BC #### [facility] [address] [place] [address] Dr. Abelardo Barrett IG % 0.2 % Normal 0.0-0.5 [facility] Comment on above: Performed By: #### C BC #### [facility] [address] [place] [address] Dr. Abelardo Barrett LYMPH # 1.3 103/ul Normal 1.2-3.8 [facility] Comment on above: Performed By: #### C BC #### [facility] [address] [place] [address] Dr. Abelardo Barrett Lymphocytes/100 WBC (Bld) 28.5 % Normal 20.5-60.0 [facility] Comment on above: Performed By: #### C BC #### [facility] [address] [place] [address] Dr. Abelardo Barrett MANUAL DIFF REQ NO Normal [facility] Comment on above: Performed By: #### C BC #### [facility] [address] [place] [address] Dr. Abelardo Barrett MCH (RBC) [Entitic mass] 30.8 pg Normal 26.7-34.0 [facility] Comment on above: Performed By: #### C BC #### [facility] [address] [place] [address] Dr. Abelardo Barrett MCHC (RBC) [Mass/Vol] 33.0 g/dL Normal 29.9-35.2 [facility] Comment on above: Performed By: #### C BC #### [facility] [address] [address] [address] Abelardo Barrett MCV (RBC) [Entitic vol] 93.3 fL Normal 81.0-99.0 [facility] Comment on above: Performed By: #### C BC #### [facility] [address] [address] [address] Abelardo Barrett MONO # 0.5 103/ul Normal 0.3-0.8 [facility] Comment on above: Performed By: #### C BC #### [facility] [address] [address] [address] Abelardo Barrett Monocytes/100 WBC (Bld) 11.1 % Normal 1.7-12.0 [facility] Comment on above: Performed By: #### C BC #### [facility] [address] [address] [address] Abelardo Barrett NEUT # 2.5 103/ul Normal 1.4-6.5 [facility] Comment on above: Performed By: #### C BC #### [facility] [address] [place] [address] Dr. Abelardo Barrett Neutrophils/100 WBC (Bld) 55.2 % Normal 43.0-75.0 [facility] Comment on above: Performed By: #### C BC #### [facility] [address] [place] [address] Dr. Abelardo Barrett Platelet mean volume (Bld) [Entitic vol] 9.1 fL Critically low 9.5-13.5 [facility] Comment on above: Performed By: #### C BC #### [facility] [address] [place] [address] Dr. Abelardo Barrett PLT 241 103/ul Normal 150-450 [facility] Comment on above: Performed By: #### C BC #### [facility] [address] [address] [address] Abelardo Barrett RBC 3.60 106/ul Critically low 4.20-5.40 [facility] Comment on above: Performed By: #### C BC #### [facility] [address] [place], [place] [address] Dr. Abelardo Barrett WBC 4.6 103/ul Normal 4.0-11.0 [facility] Comment on above: Performed By: #### C BC #### [facility] [address], [place] [address] Dr. Abelardo Barrett ECHOCARDIO M/2D COMPLETEon 0 10-27-2021 ECHOCARDIO M/2D COMPLETE Patient: BECKY PONCE Exam Date: 10/27/2021 : 1945 Gender:F Ordering : DR DORCAS AGUIRRE . Admission #: [id number] Family : Order #: [id number] CLICK HERE TO VIEW EXAM ECHOCARDIOGRAM REPORT [...] Area(A4C): 17.20 cm2 Left Atrium Systolic Volume(A2C): 47078 mm3 Left Atrium Systolic Volume(A4C): 65488 mm3 Mitral Valve MV E to A Ratio: 0.80 Deceleration [place]: 2480 mm/s2 Mitral Valve A-Wave Peak Velocity: [...] M.D. on 10/27/2021 at 19:38 Normal [facility] FREE T3on 10-27-2021 FREE T3 4.10 pg/mlL Critically high 2.18-3.98 [facility] Comment on above: Performed By: #### F T3, TSH, T4 #### [facility] [address] [address] [address] Abelardo Barrett GLYCOHEMOGLOBIN A1Con 2021 ADA RECOMMENDATION SEE BELOW Normal [facility] Comment on above: Result Comment: ADA RECOMMENDED LIMIT 4.0 - 6.0 ADA THERAPEUTIC TARGET < 7.0 ACTION SUGGESTED > 7.0 Performed By: #### F T3, TSH, T4 #### [facility] [address] [address] [address] Abelardo Barrett Glucose [Mass/Vol] 123 mg/dL Normal [facility] Comment on above: Performed By: #### F T3, TSH, T4 #### [facility] [address] [address] [address] Abelardo Barrett HbA1c (Bld) [Mass fraction] 5.9 % Normal 4.5-6.2 [facility] Comment on above: Performed By: #### F T3, TSH, T4 #### [facility] [address] [address] [address] Abelardo Barrett IRONon 10-27-2021 Iron [Mass/Vol] 63.0 ug/dL Normal 50.0-170.0 [facility] Comment on above: Performed By: #### C MP, LIPID #### [facility] [address] [place] [address] Dr. Abelardo Barrett LIPID PROFILEon 10-27-2021 CHOL-HDL RATIO NORM SEE BELOW Normal [facility] Comment on above: Result Comment: 3.3 - 4.4 LOW RISK 4.4 - 7.1 AVERAGE RISK 7.1 - 11.0 MODERATE RISK >11.0 HIGH RISK Performed By: #### C MP, LIPID #### [facility] [address] [place] [address] Dr. Abelardo Barrett Cholesterol [Mass/Vol] 163 mg/dL Normal <=200 [facility] Comment on above: Performed By: #### C MP, LIPID #### [facility] [address] [place] [address] Dr. Abelardo Barrett Cholesterol in HDL [Mass/Vol] 74 mg/dL Critically high 40-60 [facility] Comment on above: Performed By: #### C MP, LIPID #### [facility] [address] [address] [address] Abelardo Barrett Cholesterol in LDL [Mass/Vol] 79.2 mg/dL Normal [facility] Comment on above: Performed By: #### C MP, LIPID #### [facility] [address] [address] [address] Abelardo Barrett Cholesterol.total/C holesterol in HDL [Mass ratio] 2.2 {ratio} Normal [facility] Comment on above: Performed By: #### C MP, LIPID #### [facility] [address] [address] [address] Abelardo Barrett HDL NORMAL > or = 60 mg/dl - LO W CARDIOVASCULAR RISK <40 mg/dl - HIGH CARDIOVASCULAR RISK Normal [facility] Comment on above: Performed By: #### C MP, LIPID #### [facility] [address] [address] [address] Abelardo Barrett LDL CALC NORMAL SEE BELOW Normal [facility] Comment on above: Result Comment: <100 mg/dl OPTIMAL 100 - 129 mg/dl NEAR OR ABOVE OPTIMAL 130 - 159 mg/dl BORDERLINE HIGH 160 - 189 mg/dl HIGH >190 mg/dl VERY HIGH Performed By: #### C MP, LIPID #### [facility] [address] [place] [address] Dr. Abelardo Barrett Triglyceride [Mass/Vol] 49 mg/dL Normal <=150 [facility] Comment on above: Performed By: #### C MP, LIPID #### [facility] [address] [address] [address] Abelardo Barrett VLDL CALC 9.8 mg/dL Normal [facility] Comment on above: Performed By: #### C MP, LIPID #### [facility] [id number] Abelardo Barrett NM STRESS/REST MULTIon 10-27 NM STRESS/REST MULTI Patient: BECKY PONCE Exam Date: 10/27/2021 : 1945 Gender:F Ordering : DR DORCAS AGUIRRE . Admission #: [id number] Family : Order #: [id number] CLICK HERE TO VIEW EXAM RADIOLOGY REPORT [...] anteroseptal. Basal inferoseptal. Mid-anteroseptal. Mid-inferoseptal. Apical septal. [place]. SIZE: Large (5 or more segments). SEVERITY: Moderate. TYPE: Mixed. WALL MOTION: Normal. Basal inferoseptal. Mid-anterior. Mid-anteroseptal. [place]. LV SIZE: Normal. 63 mL. TID / [...] MD on 10/27/2021 at 12:10 Normal [facility] PROF 14(COMP METB)on 022 Albumin [Mass/Vol] 3.2 g/dL Critically low 3.4-5.0 [facility] Comment on above: Performed By: #### C MP, LIPID #### [facility] [address] [place] [address] Dr. Abelardo Barrett Albumin/Globulin [Mass ratio] 0.9 {ratio} Normal [facility] Comment on above: Performed By: #### C MP, LIPID #### [facility] [address] [place] [address] Dr. Abelardo Barrett ALP [Catalytic activity/Vol] 50 U/L Normal 46-116 [facility] Comment on above: Performed By: #### C MP, LIPID #### [facility] [address] [address] [address] Abelardo Barrett ALT [Catalytic activity/Vol] 38 U/L Normal 14-59 [facility] Comment on above: Performed By: #### C MP, LIPID #### [facility] [address] [place] [address] Dr. Abelardo Barrett Anion gap [Moles/Vol] 13.4 mmol/L Normal [facility] Comment on above: Performed By: #### C MP, LIPID #### [facility] [address] [place] [address] Dr. Abelardo Barrett AST [Catalytic activity/Vol] 27 U/L Normal 15-37 [facility] Comment on above: Performed By: #### C MP, LIPID #### [facility] [address] [place] [address] Dr. Abelardo Barrett Bilirubin [Mass/Vol] 0.4 mg/dL Normal 0.2-1.0 [facility] Comment on above: Performed By: #### C MP, LIPID #### [facility] [address] [place] [address] Dr. Abelardo Barrett Calcium [Mass/Vol] 8.6 mg/dL Normal 8.5-10.1 [facility] Comment on above: Performed By: #### C MP, LIPID #### [facility] [address] [place] [address] Dr. Abelardo Barrett Chloride [Moles/Vol] 107 mmol/L Normal 98-107 [facility] Comment on above: Performed By: #### C MP, LIPID #### [facility] [address] [place] [address] Dr. Abelardo Barrett CO2 [Moles/Vol] 24.7 mmol/L Normal 21.0-32.0 [facility] Comment on above: Performed By: #### C MP, LIPID #### [facility] [address] [address] [address] Abelardo Barrett Creatinine [Mass/Vol] 0.75 mg/dL Normal 0.55-1.02 [facility] Comment on above: Performed By: #### C MP, LIPID #### [facility] [address] [address] [address] Abelardo Barrett EGFR-AF COSTA RICAN >60 Normal >=60 [facility] Comment on above: Performed By: #### C MP, LIPID #### [facility] [address] [address] [address] Abelardo Barrett EGFR-NON AF COSTA RICAN >60 Normal >=60 [facility] Comment on above: Performed By: #### C MP, LIPID #### [facility] [address] [address] [address] Abelardo Barrett Globulin (S) [Mass/Vol] 3.4 g/dL Normal [facility] Comment on above: Performed By: #### C MP, LIPID #### [facility] [address] [address] [address] Abelardo Barrett Glucose [Mass/Vol] 92 mg/dL Normal 74-106 [facility] Comment on above: Performed By: #### C MP, LIPID #### [facility] [address] [address] [address] Abelardo Barrett Potassium [Moles/Vol] 4.1 mmol/L Normal 3.5-5.1 [facility] Comment on above: Performed By: #### C MP, LIPID #### [facility] [address] [address] [address] Abelardo Barrett Protein [Mass/Vol] 6.6 g/dL Normal 6.4-8.2 [facility] [place] Comment on above: Performed By: #### C MP, LIPID #### [facility] [address] [address] [address] Abelardo Barrett Sodium [Moles/Vol] 141 mmol/L Normal 136-145 [facility] [place] Comment on above: Performed By: #### C MP, LIPID #### [facility] [address] [address] [address] Abelardo Barrett Urea nitrogen [Mass/Vol] 29.0 mg/dL Critically high 7.0-18.0 [facility] Comment on above: Performed By: #### C MP, LIPID #### [facility] [address] [address] [address] Abelardo Barrett Urea nitrogen/Creatinine [Mass ratio] 38.7 mg/mg Normal [facility] Comment on above: Performed By: #### C MP, LIPID #### [facility] [address] [address] [address] Abelardo Barrett T4on 10-27-2021 T4 [Mass/Vol] 9.40 ug/dL Normal 4.80-13.90 [facility] Comment on above: Performed By: #### F T3, TSH, T4 #### [facility] [address] [place] [address] Dr. Abelardo Barrett TSHon 10-27-2021 TSH Qn m[IU]/L Critically low 0.358-3.740 [facility] Comment on above: Performed By: #### F T3, TSH, T4 #### [facility] [address] [place] [address] Dr. Abelardo Barrett T4 [facility]Pon 10-01-2021 T4 [Mass/Vol] 9.4 ug/dL Normal 4.5-12.0 [facility] Comment on above: Performed By: #### T 4LC #### [facility] [address] [place] [address] Dr. Abelardo Barrett FREE T3on 09-30-2021 FREE T3 4.05 pg/mlL Critically high 2.18-3.98 [facility] Comment on above: Performed By: #### F T3, TSH, T4 #### [facility] [address] [place] [address] Dr. Abelardo Barrett TSHon 09-30-2021 TSH Qn m[IU]/L Critically low 0.358-3.740 [facility] Comment on above: Performed By: #### F T3, TSH, T4 #### [facility] [address] [address] [address] Abelardo Barrett TSH RANGE SEE BELOW Normal [facility] Comment on above: Result Comment: <0.3 4 UIU/ml HYPERTHYROID 0.34-5.60 UIU/ml EUTHYROID >5.60 UIU/ml HYPOTHYROID Performed By: #### F T3, TSH, T4 #### [facility] [address] [address] [address] Abelardo Barrett FREE T3on 08-14-2021 FREE T3 1.73 pg/mlL Critically low 2.77-5.27 [facility] Comment on above: Performed By: #### C MP, LIPID #### [facility] [address] [place] [address] Dr. Abelardo Barrett T4on 08-14-2021 T4 [Mass/Vol] 4.40 ug/dL Critically low 5.53-11.00 [facility] Comment on above: Performed By: #### C MP, LIPID #### [facility] [address] [address] [address] Abelardo Barrett TSHon 08-14-2021 TSH 0.349 uIU/mL Critically low 0.470-4.680 [facility] Comment on above: Performed By: #### C MP, LIPID #### [facility] [address] [place] [address] Dr. Abelardo Barrett TSH RANGE SEE BELOW Normal [facility] Comment on above: Result Comment: <0.3 4 UIU/ml HYPERTHYROID 0.34-5.60 UIU/ml EUTHYROID >5.60 UIU/ml HYPOTHYROID Performed By: #### C MP, LIPID #### [facility] [address] [place] [address] Dr. Abelardo Barrett Outside Colonoscopyon 2020 Outside Colonoscopy [id number] [id number]: 127 Normal [facility] RAD - MISCon 05-14-2020 RAD - MISC [id number] [id number]: 127 [facility] Lab Reportson 05-12-2020 Lab Reports [id number] [id number]#[id number]: 127 [facility] Provider Letter FTMCon 05-07 Provider Letter [facility] [place] [place] Dorcas Aguirre, [address] [place] [address] [place] [address] Re: BECKY PONCE Date of : 1945 Thank you for your referral of Becky Ponce who was seen on consultation on April 30, 2020, for positive occult stool. A colonoscopy is planned for further evaluation. I have enclosed my consultation notes for your review. I will be happy to follow Becky should her symptoms persist. Sincerely, Ajith Padilla MD General Surgery [facility] Consent for Procedure/Surger yon 05-06-2020 Consent for Procedure/Surgery [id number]: 127 [facility] Facesheeton 05-01-2020 Facesheet [id number]: 127 [facility] Ambulatory Clinical Summaryo n 04-30-2020 Ambulatory Clinical Summary {[id number] }CD:[id number] [facility] Ambulatory Clinical Summary {[id number] }[id number] [facility] Physician Referralon 020 Physician Referral [id number]: 127 [facility] Vital Signs Date Time Vital Sign Value Performing Clinician Facility 04-10-2024 11:24-0500 Diastolic blood pressure 76 mm[Hg] Sanjuanita Whipple MD Work Phone: [employer] [facility] 04-10-2024 11:24-0500 Systolic blood pressure 132 mm[Hg] [facility] 03-27-2024 11:01-0500 Body height 162.6 cm [facility]ita Whipple MD [facility] 03-27-2024 11:01-0500 Body mass index (BMI) [Ratio] 25.46 kg/m2 Sanjuanita Whipple MD Work Phone: [facility] 03-27-2024 11:01-0500 Body weight 67.27 kg Sanjuanita Whipple MD [facility] 03-27-2024 11:01-0500 Diastolic blood pressure 82 mm[Hg] Sanjuanita Whipple MD [facility] 03-27-2024 11:01-0500 Systolic blood pressure 140 mm[Hg] Sanjuanita Whipple [facility] 05-27-2022 16:10-0500 Body temperature 96.4 [degF] Saranya Butcher MD Work Phone: [employer] 05-27-2022 16:10-0500 Diastolic blood pressure 72 mm[Hg] Saranya Butcher MD Work Phone: [employer] 05-27-2022 16:10-0500 Heart rate 81 /min Saranya Butcher MD Work Phone: [employer] 05-27-2022 16:10-0500 SaO2% (BldA) [Mass fraction] 99 % Saranya Butcher MD Work Phone: [employer] 05-27-2022 16:10-0500 Systolic blood pressure 145 mm[Hg] Saranya Butcher MD Work Phone: [employer] 05-27-2022 14:30-0500 Respiratory rate 15 /min Saranya Butcher MD Work Phone: [employer] 07-29-2021 09:16-0400 Body height 162.6 cm Gertrudis Encarnacion MD Work Phone: [facility] 07-29-2021 09:16-0400 Body mass index (BMI) [Ratio] 23.34 kg/m2 Gertrudis Encarnacion MD Work Phone: [facility] 07-29-2021 09:16-0400 Body temperature 97.59 [degF] Gertrudis Encarnacion MD Work Phone: 3([phone] [address] 07-29-2021 09:16-0400 Body weight 61.69 kg Gertrudis Encarnacion MD Work Phone: 8([phone] [place] [address] 07-29-2021 09:16-0400 Diastolic blood pressure 85 mm[Hg] Gertrudis Encarnacion MD Work Phone: 7(178)[phone] [place] [address] 07-29-2021 09:16-0400 Heart rate 91 /min Gertrudis Encarnacion MD Work Phone: 6([phone])240-990565 [place] [address] 07-29-2021 09:16-0400 Systolic blood pressure 144 mm[Hg] Gertrudis Encarnacion MD Work Phone: [facility] Encounters Encounter Date Encounter Type Care Provider Facility Start: 04-10-2024 End: 04-10-2024 [facility] Start: 04-10-2024 End: 04-10-2024 Patient encounter procedure Sanjuanita Whipple MD Work Phone: [facility] Comment on above: 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); Atrophic vaginitis Start: 04-10-2024 End: 04-10-2024 ambulatory [facility] Start: 03-27-2024 End: 03-27-2024 Office outpatient new 30 minutes Sanjuanita Whipple MD Work Phone: [facility] Comment on above: 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) Start: 03-27-2024 End: 03-27-2024 ambulatory [facility] Start: 03-20-2024 End: 03-20-2024 Bamboo flowsheet Melissa A Felter [employer] [facility] Work Phone: [facility] Start: 03-20-2024 End: 03-20-2024 Bamboo flowsheet Melissa A Felter [employer] Work Phone: [facility] Start: 03-20-2024 End: 03-20-2024 Office outpatient visit 25 minutes Melissa A Felter [employer] Work Phone: [facility] Comment on [...] visit 10 minutes Saranya Butcher Work Phone: [facility] Raul Hua Start: 05-10-2023 End: 05-10-2023 ambulatory ELOISA A PETITTI Not Available Start: 03-29-2023 End: 03-29-2023 ambulatory ELOISA A PETITTI Not Available Start: 10-20-2022 End: 10-20-2022 ambulatory Gertrudis Encarnacion Facility:[facility] Start: 07-05-2022 End: 07-05-2022 Encounter identifier [facility] Start: 06-15-2022 End: 06-16-[address] DOCTOR BANDA Facility:[facility] Start: 06-02-2022 End: 06-02-2022 Encounter identifier Saranya Butcher Work Phone: [facility] Raul Hua Start: 06-01-2022 End: 06-01-[address] NIKUNJ LINDSEY Facility:[facility] Start: 05-27-2022 End: 05-27-2022 Evaluation and management of inpatient SARANYA BUTCHER [facility] Start: 05-27-2022 End: 05-27-2022 Encounter identifier Jethrotri Rosales Work Phone: [facility] Start: 05-27-2022 End: 05-27-2022 Evaluation and management of inpatient Saranya Buthcer MD Work Phone: [facility] Comment on above: 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, initial encounter ([facility]) Start: 05-27-2022 End: 05-27-2022 Evaluation and management of inpatient [facility] [address] [place] [address] Start: 05-27-2022 End: 05-27-2022 Subsequent hospital visit by physician DarrylNa [address] [place] [address] Comment on above: Pain Start: 05-17-2022 End: 05-17-2022 Encounter identifier Jaskaran Martinez Work Phone: [facility] Start: 05-06-2022 End: 05-06-2022 Encounter identifier Saranya Butcher Work Phone: [facility] Start: 05-06-2022 End: 05-06-2022 Office outpatient visit 25 minutes Ajith De La Torre Work Phone: [facility] Start: 04-07-2022 End: 04-08-[address] SARANYA NICE Facility:[facility] Start: 03-30-2022 End: 03-31-[address] DORCAS AGUIRRE . Facility:[facility] Start: 01-15-2022 End: 01-16-[address] DORCAS AGUIRRE . Facility:[facility] Start: 12-14-2021 End: 12-15-[address] JIAN DEAN Facility:[facility] Start: 11-19-2021 End: 11-20-2021 ambulatory DORCAS AGUIRRE [facility] Start: 11-18-2021 Encounter for preprocedural laboratory examination ELA MELTON [facility] Start: 11-17-2021 End: 11-18-2021 ambulatory ELA MELTON Facility:[facility] Start: 11-17-2021 End: 11-18-2021 Encounter for preprocedural laboratory examination ELA MELTON Facility:[facility] Start: 11-14-2021 End: 11-14-2021 ambulatory NIKHIL GIORDANO Facility: Start: 11-03-2021 End: 11-16-2021 ambulatory DORCAS AGUIRRE [facility] Start: 10-29-2021 End: 10-29-[address] DORCAS AGUIRRE . Facility:[facility] Start: 10-27-2021 End: 10-28-[address] DORCAS AGUIRRE . Facility:[facility] Start: 09-30-2021 End: 10-01-[address] DORCAS AGUIRRE . Facility:[facility] Start: 08-14-2021 End: 08-15-[address] DORCAS AGUIRRE . Facility:[facility] Start: 07-29-2021 End: 07-29-2021 Patient encounter procedure Gertrudis Encarnacion MD Work Phone: [facility] Comment on above: Rhytides (Primary Dx ); Atrophic skin Procedures Date Procedure Procedure Detail Performing Clinician Start: 04-10-2024 Colposcopy Colposcopy SANJUANITA PRICE Start: 03-20-2024 CRYOTHERAPY SKIN LESION Melissa Saba [employer] Work Phone: Start: 09-09-2023 End: 09-09-2023 Radex [...] above: Performed By: #### 3 [id number] #### [facility] [address] [place] [address] Start: 05-27-2022 POCT GLUCOSE BLOOD Cuba Butcher MD Work Phone: Start: 05-27-2022 Sars-cov-2 detection by dna/rna Saranya Butcher MD Work Phone: Start: 05-27-2022 Antibody screen rbc each serum technique Saranya Butcher MD Work Phone: Start: 05-17-2022 Antibody screen SARANYA OAKES Comment on above: Performed By: #### 3 [id number] #### [facility] [address] [place] [address] Start: 05-17-2022 End: 05-17-2022 Physical therapy evaluation low complex 20 mins Saranya Butcher MD Start: 05-17-2022 End: 05-17-2022 Therapeut actvity direct pt contact each 15 min Saranya Butcher MD Plan of Treatment Date Care Activity Detail Author Start: 04-10-2025 Tobacco Screening Tobacco Screening [facility] Start: 09-19-2024 End: 09-19-2024 Patient encounter procedure 09/19/2024 8:30 AM EDT Office Visit [facility] [address] [place] [phone] Melissa Saba APRN-UNIT AID [address] [place] [address] [facility] Start: 04-30-2024 End: 04-30-2024 Patient encounter procedure 04/30/2024 8:45 AM EST Office Visit [facility] [place] [phone] Sanjuanita Whipple MD [address] [facility] [place] [address] [facility] Start: 04-10-2024 End: 04-10-2024 Patient encounter procedure 04/10/2024 11:30 AM EST Procedure visit [facility] [address] [facility] [place] [phone] Sanjuanita Whipple MD [address] [facility] [place] [address] [facility] Start: 03-20-2024 End: 03-20-2024 Patient encounter procedure 03/20/2024 9:50 AM EST Office Visit [facility] [address] [place] [phone] Melissa Saba APRN-CNP [address] [place] [address] Arrived [facility] Comment on above: Arrived Start: 01-01-2024 COVID-19 Vaccine ( season) COVID-19 Vaccine ( season) [facility] Start: 01-01-2024 Influenza vaccination [facility] Start: 05-27-2023 Falls Risk Assessment Falls Risk Ass essment [facility] Start: 05-17-2023 Hypertension/CHF/CAD Annual BMP Blood Test Hypertension/CHF/CAD Annual BMP Blood Test [facility] Start: 05-17-2022 Adolescent depressio n screening assessment Depression Screening [facility] Start: 05-17-2022 Hepatitis C screening Hepatitis C Sc reening [facility] Start: 05-17-2022 Lipid panel Cholesterol Sc reening (Lipid Panel) [facility] Start: 05-17-2022 Medicare Annual Well ness Visit Medicare Annual Wellness Visit [facility] Start: 05-17-2022 Screening for malign ant neoplasm of breast Breast Cancer Screening [facility] Start: 05-17-2022 Screening for malign ant neoplasm of colon Colorectal Cancer Screening: Colonoscopy [facility] Start: 05-17-2022 Screening for osteoporosis Osteoporosis Screening (Bone Density Screening) [facility] Start: 05-17-2022 Social Influencers o f Health Screening Social Influencers of Health Screening [facility] Start: 05-06-2022 Patient referral Referrals: DM E LT Hip Revision [facility] Start: 04-23-2021 COVID-19 VACCINE (2 - Pfizer 3-dose series) COVID-19 VACCINE (2 - Pfizer 3-dose series) [facility] Start: 04-23-2021 COVID-19 Vaccine (2 - Pfizer series) COVID-19 Vaccine (2 - Pfizer series) [facility] Start: 12-31-2020 Influenza vaccination INFLUENZA VACC INE (#1) [facility] Start: 12-24-2012 Fall Risk Screening Fall Risk Screen ing [facility] Start: 12-24-2012 Pneumococcal vaccination PNEUM OCOCCAL VACCINE SERIES (1 of 1 - PPSV23) [facility] Start: 12-24-1997 Administration of varicella zoster vaccine Zoster (Shingles) Vaccine (1 of 2) [facility] Start: 12-24-1997 Zoster vaccine hzv l cata for subcutaneous use ZOSTER (SHINGLES) VACCINE (1 of 2) [facility] Start: 12-24-1997 Zoster Vaccines (1 of 2) Zoste r Vaccines (1 of 2) [facility] Start: 12-24-1992 Colonoscopy COLORECTAL CAN CER SCREENING DISCUSSION [facility] Start: 1987 Fasting lipid profile LIPID SCREENIN G [facility] Start: 1987 Screening mammography MAMMOGRA M SCREENING DISCUSSION [facility] Start: 12-24-1968 Screening for malign ant neoplasm of cervix CERVICAL CANCER SCREENING DISCUSSION [facility] Start: 12-24-1966 DTaP,Tdap and Td Vaccines (1 - Tdap) DTaP,Tdap and Td Vaccines (1 - Tdap) [facility] Start: 12-24-1966 DTaP,Tdap,and Td Vaccines (1 - Tdap) DTaP,Tdap,and Td Vaccines (1 - Tdap) [facility] Start: 12-24-1966 Third diphtheria, tetanus and acellular pertussis (DTaP) vaccination TDAP (ADULT) [facility] Start: 12-24-1965 Tetanus vaccination TETANUS [facility] Start: 1959 Depression Screening Depression Scre ening [facility] Start: 1959 Tobacco Screening Tobacco Screening [facility] Start: 1945 Hepatitis C antibody , confirmatory test HEPATITIS C VIRUS SCREENING [facility] Start: 1945 Screening for osteoporosis DEXA SCAN DISCUSSION [facility] Bacteria identified in Tissue by Culture Culture tissue with gram stain Microbiology Routine Other mechanical complication of internal left hip prosthesis, initial encounter ([facility]) 05/27/2022 11:30 AM EST [employer] Bacteria identified in Tissue by Culture Culture tissue with gram stain Microbiology Routine 05/27/2022 3:08 PM EST [employer] End: 05-27-2022 Bacteria identified in Unspecified specimen by Anaerobe culture [employer] Work Phone: Comment on above: Release Upon Orderin g for 1 Occurrences starting 05/27/2022 Once for 1 Occurrenc es starting 05/27/2022 until 05/27/2022 Bacteria identified in Unspecified specimen by Anaerobe culture Culture anaerobic Microbiology Routine 05/27/2022 3:08 PM [employer] End: 04-10-2025 Cytopathology procedure, preparation of smear, genital source Pap Smear Pathology and Cytology Routine HPV in female 1 Occurrences starting 04/10/2024 until 04/10/2025 [employer] Work Phone: Comment on above: 1 Occurrences starti ng 04/10/2024 until 04/10/2025 Fungus identified in Skin by Culture Culture fungal, other Microbiology Routine Other mechanical complication of internal left hip prosthesis, initial encounter ([facility]) 05/27/2022 11:30 AM EST [facility] Fungus identified in Skin by Culture Culture fungal, other Microbiology Routine 05/27/2022 3:08 PM EST [employer] End: 04-10-2025 High risk HPV w/brady High risk HPV w/brady Lab Routine HPV in female 1 Occurrences starting 04/10/2024 until 04/10/2025 [employer] [employer] Comment on above: 1 Occurrences starti ng 04/10/2024 until 04/10/2025 Mycobacterium sp identified in Unspecified specimen by Organism specific culture Culture AFB Microbiology Routine Other mechanical complication of internal left hip prosthesis, initial encounter ([facility]) 05/27/2022 11:30 AM EST [employer] Mycobacterium sp identified in Unspecified specimen by Organism specific culture Culture [employer]B Microbiology Routine 05/27/2022 3:08 PM EST [facility] Comment on above: Release Upon Orderin g for 1 Occurrences starting 05/27/2022, 1 completed End: 04-10-2025 Surgical Pathology Surgical Pathology Pathology and Cytology Routine HPV in female 1 Occurrences starting 04/10/2024 until 04/10/2025 [facility] Comment on above: 1 Occurrences starti ng 04/10/2024 until 04/10/2025 Immunizations Immunization Date Immunization Notes Care Provider [facility] 05-18-2023 influenza virus vaccine, unspecified formulation Melissa Saba APRN-[facility] A[employer] Work Phone: [facility] 04-09-2020 influenza virus vaccine, unspecified formulation Gertrudis Encarnacion MD Work Phone: [facility] Payers Date Payer Category Payer Self-pay 2022 Medicaid [employer] MEDICARE A DVANTAGE [id number] 2022 Medicare AETNA MEDICARE A DVANTAGE AETNA MEDICARE ADVANTAGE [id number] 2022-Present [phone] [address] [facility] [place] [address] [id number] 2022 Medicare HMO [employer] MEDICARE [id number] 2021 Unknown [id number] 1.13.172.2.7.3.6 [id number] 1957 Medicare [id number] 1957 Medicare [id number] 1945 Unknown [id number] 2.16.840.1.645979.3.579.2.647 1945 Unknown [id number] 2.16.840.1.166195.3.579.2.647 1945 Unknown [id number] 2.16.840.1.488130.3.579.2.1143 1945 Unknown [id number] 2.16.840.1.995642.3.579.2.1143 1947 Unknown [id number] 2.16.840.1.940625.3.579.2.593 1947 Unknown [id number] 2.16.840.1.728061.3.579.2.593 1945 Unknown [id number] 2.16.840.1.859957.3.579.2.593 1947 Unknown [id number] 2.16.840.1.326439.3.579.2.593 1947 Unknown [id number] 2.16.840.1.015550.3.579.2.593 1945 Unknown [id number] 2.16.840.1.942285.3.579.2.593 1947 Unknown [id number] 2.16.840.1.610674.3.579.2.593 1947 Unknown [id number] 2.16.840.1.101413.3.579.2.593 1947 Unknown [id number] 2.16.840.1.296339.3.579.2.593 1947 Unknown [id number] 2.16.840.1.039672.3.579.2.593 1947 Unknown [id number] 2.16.840.1.419172.3.579.2.593 1947 Unknown [id number] 2.16840.1.597758.3.579.2.593 1947 Unknown [id number] 2.16.840.1.513856.3.579.2.1259 1947 Unknown [id number] 2.16.840.1.647926.3.579.2.1259 1947 Unknown [id number] 2.16.840.1.436318.3.579.2.1259 1947 Unknown [id number] 2.16.840.1.136455.3.579.2.1259 1947 Unknown [id number] 2.16.840.1.596761.3.579.2.1259 1947 Unknown [id number] 2.16.840.1.854258.3.579.2.1259 1947 Unknown [id number] 2.16.840.1.055456.3.579.2.1286 1947 Unknown [id number] 2.16.840.1.460075.3.579.2.1286 1947 Unknown [id number] 2.16.840.1.098047.3.579.2.1286 Unknown [id number] Unknown [id number] 2.16.840.1.756230.3.579.2.462 Social History Date Type Detail Facility Start: 03-10-2021 End: 03-27-2024 Tobacco smoking status NHIS Never smoked tobacco [facility] Start: 03-10-2021 End: 03-27-2024 Tobacco use and exposure Smokeless tobacco non-user [facility] Start: 07-29-2021 Alcohol intake Ex-drinker (finding) [facility] Start: 03-10-2021 History SDOH Alcohol Frequency 1 [facility] Start: 1945 Sex Assigned At Not on file [facility] [place] Start: 05-27-2022 End: 03-20-2024 Alcohol intake Lifetime non-drinker (finding) [facility] Start: 05-17-2022 End: 05-27-2022 Exposure to SARS-CoV-2 (event) Not sure [facility] Start: 09-09-2023 Tobacco smoking status NHIS Unknown if ever smoked [facility] Start: 09-09-2023 Alcohol intake Alcohol Use Details [facility] Start: 1945 Sex Assigned At Female [facility] Start: 07-03-2019 Sexual Orientation Straight or heterosexual [facility] Start: 06-12-2020 End: 11-22-2023 History of Social function [facility] Start: 06-12-2020 End: 11-22-2023 Tobacco use panel [facility] Start: 11-09-2022 Alcohol Comment caffeine: none [facility] Start: 10-12-2022 Gender identity Identifies as female gender (finding) [facility] Start: 03-27-2024 End: 04-10-2024 Alcoholic beverage intake Current non-drinker of alcohol (finding) [facility]care Unknown [facility] Start: 03-14-2017 Sex Female (finding) [facility] NEGATED: Highlighted rowStart: NINF History of tobacco use Passive smoker [facility] Medical Equipment Procedure Code Equipment Code Equipment Origin al Text Equipment Identifier Dates Hip Hd Option Bl [facility] - Sna - [id number] [id number], [id number] FDA Start: 05-27-2022 Shl Actb 50mm Hi p 3 Hl Fin Pps - [id number] Start: 07-13-2017 Linr Actb G7 Ntr l E1 36mm D - [id number] Start: 07-13-2017 Hd Fem 36mm Opt Shl Actb G7 Bl Rpl 650-1057 - [id number] Start: 07-13-2017 Stm Fem 107.5mm 133d 11 Hi Os - [id number] Start: 07-13-2017 Slv Fem Opt -6mm Tpr Hip Blx D Rpl 650-1064 - [id number] Start: 07-13-2017 Goals Date Patient Goal [...] SANJUANITA WHIPPLE MD documented in this encounter [facility] 03-27-2024 History of Present illness Narrative Becky [...] 07/13/2017 Performed by Arnoldo Terrazas MD at [facility] Family History Problem Relation [...] Ruble 03/27/24 1129 documented in this encounter [facility] 03-27-2024 Miscellaneous Notes Disclaimer: This note is [...] legal medical record. documented in this encounter [facility] 03-27-2024 Progress note Formatting of t [...] a part of the legal medical record. [facility] 03-20-2024 History of Present illness Narrative [...] limited to risks of scarring, darker or featheredger and reducer machine pigmentary changes, recurrence, incomplete removal and infection. [...] months skin exam documented in this encounter [facility] 09-09-2023 Evaluation note Type assessment Presence of artificial hip, left assessment Primary osteoarthritis of left h ip [facility] Work Phone: 1(257) 976-934505-10-2024 History of Present illness Narrative* Encounter Date [...] Facto rs: Previous Surgery: LH revision 05/17/22 [facility]. Comments: Patient presents for [...] Factors: Previous Surgery: LTHA 2018 Dr. Salazar ([place]). Comments: She complains of worsening left hip pain at her groin and thigh. Worse with weight bearing. Using a cane to assist with ambulation. Dr. Terrazas recently told her recently that her stem is loose but he doesn't do revisions. She was seen at [facility] in 2019 but it appeared that the implant had stabilized. Patient states that her symptoms are worsening and she can barely function at this point. No history of infection. [facility] Work Phone: [phone]) 188-659801-31-2023 NotePROCEDURE: XR HIP LT 2 3V W [...] Electronically authenticated by: FER JUAREZ Date: 2022-06-01 12:03[facility]01-[facility] History of Present illness Narrative* Gaby Sanchez, [...] Peng, GIN - 05/27/2022 3:36 PM EST [facility] Physical Therapy Evaluation PT Discharge Recommendations: [...] of internal left hip prosthesis, initial encounter ([facility]) Past Medical History: Diagnosis Date Adverse effect [...] of Steps 1 Prior Function Level of [place] Independent with mobility and functional transfers Bed [...] POCT 05/27/2022 98 IMAGING documented in this encounterCoatesville [facility] [id number] Hospital course Narrative* Marisela Pope RN - [...] SHEETS Contact Surgeon's office with any questions/concerns [phone] -Plasma Flow SCD'S Compression leg pumps on [...] or concerns. Verify Office location when scheduling. [email or web address] [phone] * Princess Kenney RN - 05/25/2022 1:43 [...] prior to your surgery. Check in at tie knitter helper desk [address], [place] [address]. If Outpatient, these additional instructions apply: An adult must stay with you the whole time you are here and drive you home. An adult must stay withyou at home for 24 hours due to Anesthesia. If you have JESUS, you are required to stay 3 hours after your surgery before we can discharge you. documented in this [facility]01-26-2023 Procedure note* Nancy Daniel RN - 05/27/2022 10:[address] Pemberton, Dr. Butcher, OR Nurse all aware of this patients skin tear on the right ankle (caused when patient was putting on her socks) assessed, documented and wound dressing applied. [id number] Procedure note* Nancy Daniel RN - 05/27/2022 10:[address] Pemberton, Dr. Butcher, [place] Nurse all aware of this patients skin tear on the right ankle (caused when patient was putting on her socks) assessed, documented and wound dressing applied. documented in this [facility]01-26-2023 History and physical note* Saranya Butchre MD - 05/27/2022 9:49 AM EST History and Physical Update ( H&P completed within the previous thirty days ) I personally reviewed the History and Physical, interviewed and examined the patient prior to surgery. No changes have occurred in the patient's condition since the History and Physical was completed. [employer] Phone: [phone] History and physical note* Saranya Butcher MD - 05/27/2022 9:49 AM EST History and Physical Update ( H&P completed within the previous thirty days ) I personally reviewed the History and Physical, interviewed and examined the patient prior to surgery. No changes have occurred in the patient's condition since the History and Physical was completed. documented in this encounterCoatesville [facility] Medical [id number] NotePROCEDURE: XR HIP LT 2 3V W [...] Electronically authenticated by: FER JUAREZ Date: 2022-03-31 06:56[facility]03-30-2022 History of Present illness Narrative* Spring Kelly [...] see them back PRN. documented in this [facility]12-30-2020 NoteChief Complaint referral for positive occult stool [...] Use:., 04/30/2020 Family History Family history is negativeOhiohealth Van Wert HospitalComment on above:Result Comment: Electronically Signed By: Ajith PADILLA MD\Date and Time Signed: 04/30/20 15:38 ESTConsult note* Clinical Note Date No Information [facility] Work Phone: Discharge summary* Clinical Note Date No Information [facility] Phone: Evaluation note* Diagnosis Rhytides- Primary Other specified hypertrophic and atrophic condition of skin Atrophic skin Other specified hypertrophic and atrophic condition of skin [facility] Diagnosis Other mechanical complication of internal left hip prosthesis, initial encounter ([facility])- Primary documented in [facility]* Diagnosis Pain Generalized pain documented in this [facility]* Diagnosis Seborrheic keratosis- Primary Onychomycosis Dermatophytosis of nail Lentigines Actinic keratosis [facility] 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 * DVT (Deep Vein Thrombosis): Prevention: General Info (Nepalese) * Incentive Spirometer: General Info (Nepalese) * Fall Prevention (Nepalese) * Opioids: General Info (Nepalese) * Constipation (Nepalese) * Antibiotics: General Info (Nepalese) documented in this encounterCoatesville [facility] CenterInstructions* Date Instruction Additional Infor mation No Information [facility] Phone: InstructionsNot on filedocumented in this encounter [facility]* Clinical Note Date No Information [facility] Work Phone: Reason for referral (narrative)* Reason For Referral No Information [facility] Work Phone: Resfta for visit Narrative* Auth/Cert Specialty Diagnoses / Procedures Referred By Dione long Referred To Contact Diagnoses Other mechanical complication of internal left hip prosthesis, initial encounter ([facility]) T84.091A Procedures TX REVISION PRATIK ACETABULAR COMPONENT ONLY W/WO AUTOGRAFT/ALLOGRAFT TX REVISION PRATIK ACETABULAR COMPONENT ONLY W/WO AUTOGRAFT/ALLOGRAFT 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, anterior Saranya Butcher MD [address] [place] [address] Chaim Galvez Or [address] [place] [address] Referral ID Status Reason Start Date Expiration Date Visits Re quested Visits Authorized [id number] 1 1 [facility] Purpose Family History No Family History [...] section and content) DATE CREATED AUTHOR 09/27/2020 [facility] DATE CREATED AUTHOR AUTHOR'S ORGANIZ ATION 11/30/2021 [facility] DATE CREATED AUTHOR AUTHOR'S ORGANIZ ATION 08/02/2022 [facility] DATE CREATED AUTHOR AUTHOR'S ORGANIZ ATION 08/07/2022 [facility] DATE CREATED AUTHOR AUTHOR'S ORGANIZ ATION 10/21/2022 [facility] DATE CREATED AUTHOR AUTHOR'S ORGANIZ ATION 03/22/2024 [facility] DATE CREATED AUTHOR AUTHOR'S ORGANIZ ATION 04/13/2024 [facility] DATE CREATED AUTHOR AUTHOR'S ORGANIZ ATION 04/14/2024 [facility] Reason for Visit (unrecogniz ed section and content) Reason Comments Cosmetic Restylane Reason Comments Skin Check Follow-up Reason Comments Consult Reason Comments Colposcopy Care Teams (unrecognized sec tion and content) Stone Mill Operator Relationship Specialty Start Date End Date Dorcas Aguirre MD [address] [place] [address] PCP - General Family Medicine 03/10/21 Stone Mill Operator Relationship Specialty Start Date End Date Dorcas Aguirre MD [address] [place] [address] PCP - General Family Medicine 05/18/22 Stone Mill Operator Relationship Specialty Start Date End Date Dorcas Aguirre MD [address] [place] [address] PCP - General Family Medicine 05/18/22 Name Effective Dates (start - stop) Status Members No Information Stone Mill Operator Relationship Specialty Start Date End Date Dorcas Aguirre MD [address] [place] [address] PCP - General Family Medicine 10/13/22 Stone Mill Operator Relationship Specialty Start Date End Date Dorcas Aguirre MD [address] [place] [address] PCP - General Family Medicine 10/13/22 Stone Mill Operator Relationship Specialty Start Date End Date Dorcas Aguirre MD PCP - General 04/05/17 Stone Mill Operator Relationship Specialty Start Date End Date Dorcas [...] at 1445 1712 (Given - Provid er: aGby Sanchez RN) oxyCODONE (ROXICODONE) immediate release tablet [...] BE BASED ON THE PRIMARY CLINICAL RECORDS. [employer]. provides no warranty or guarantee of the accuracy or completeness of information in this document.
[2024-04-17 11:57] LABS: Basophils Percent Auto 0.8 % (0.2-2.0); Eosinophils Absolute Auto 0.1 10^3/uL (0.0-0.7); Eosinophils Percent Auto 2.1 % (0.9-7.0); Hematocrit 42.1 % (36.0-48.0); Hemoglobin 13.6 g/dL (12.0-16.0); Immature Granulocytes Abs Auto 0.01 10^3/uL (0.00-0.03); Immature Granulocytes Pct Auto 0.2 % (0.0-0.5); Lymphocytes Absolute Auto 1.3 10^3/uL (1.2-3.8); Lymphocytes Percent Auto 23.5 % (20.5-60.0); Mean Corpuscular HGB Conc 32.3 g/dL (29.9-35.2); Mean Corpuscular Hemoglobin 31.1 pg (26.7-34.0); Mean Corpuscular Volume 96.1 fL (81.0-99.0); Mean Platelet Volume 8.7 fL (9.5-13.5); Monocytes Absolute Auto 0.4 10^3/uL (0.3-0.8); Monocytes Percent Auto 7.9 % (1.7-12.0); Neutrophils Absolute Auto 3.5 10^3/uL (1.4-6.5); Neutrophils Percent Auto 65.5 % (43.0-75.0); Platelet Count 241 10^3/uL (150-450); Red Blood Count 4.38 10^6/uL (4.20-5.40); Red Cell Distribution Width 12.2 % (11.0-15.0); White Blood Count 5.3 10^3/uL (4.0-11.0)
[2024-04-17 12:23] LABS: Estimated Average Glucose 117 mg/dL; Glycohemoglobin A1C 5.7 % (4.5-6.2)
[2024-04-17 12:28] LABS: Alanine Aminotransferase 27 U/L (14-59); Albumin Globulin Ratio 1.1; Albumin Level 3.6 g/dL (3.4-5.0); Alkaline Phosphatase 63 U/L (46-116); Anion Gap 12.2; Aspartate Amino Transferase 19 U/L (15-37); BUN Creatinine Ratio 27.4; Bilirubin Total 0.5 mg/dL (0.2-1.0); Calcium 9.3 mg/dL (8.5-10.1); Carbon Dioxide 29.2 mmol/L (21.0-32.0); Chloride 105 mmol/L (98-107); Chol HDL Ratio 2.5; Cholesterol 203 mg/dL (<=200); Estimated GFR (African America >60 (>=60 mL/min/1.73m^2); Estimated GFR (Non-African Ame 50 (>=60 mL/min/1.73m^2); Free T3 1.72 pg/mL (2.18-3.98); Globulin 3.4 g/dL; Glucose 90 mg/dL (74-106); HDL Cholesterol 82 mg/dL (40-60); Potassium 4.4 mmol/L (3.5-5.1); Sodium 142 mmol/L (136-145); Thyroid Stimulating Hormone 0.374 uIU/mL (0.358-3.740); Triglycerides 87 mg/dL (<=150); VLDL CHOLESTEROL 17.4 mg/dL
== END 2024-04-17 11:21 | disposition home or self-care (01) ==
LOC: LAB 11:32
PROVIDERS: PCP Family Medicine; Visit Provider Family Medicine
DX: E03.9 Hypothyroidism, unspecified (principal); M19.90 Unspecified osteoarthritis, unspecified site; I10 Essential (primary) hypertension; M85.80 Other specified disorders of bone density and structure, unspecified site; K21.9 Gastro-esophageal reflux disease without esophagitis
CPT/HCPCS: 36415; 80053; 80061; 82306; 83036; 83540; 84436; 84443; 84481; 85025

== ENCOUNTER 2024-11-08 12:39 | Outpatient (OUT) | payer MEDICARE, SELFPAY ==
--- OUTSIDE RECORDS SUMMARY | 2024-01-03 04:45 | XMS_ITS ---
Author Organization [facility] vices Address [address] [place], [place] [id number] Care Team Providers Care Day Guard Name Role Phone Jennifer Sumner [phone] REASON FOR VISIT Pap Test Social History Sex Assigned At : Social History Observation Description Sex Assigned At Female Encounters Encounter Location Date Provider Diagnosis [place] [address] [place] [address] 01/03/2024 Jennifer Sumner Plan Of Treatment No Information Progress Notes * Anastasia PONCE LDOB:1945 (78 yo F)Acc No.[id number]:01/03/2024 Medical Note Patient: Anastasia DELAROSA Provider: Esteban Sumner :1945 A ge:78 Y S ex:Female Date:01/03/2024 Address:[address] [place], [place] [id number] Subjective: * Chief Complaints: * 1 . Pap Test. * Medical History: Objective: * Vitals: Assessment: Plan: * Treatment: * Billing Information: * Visit Code: * Procedure Codes: * Electronic signature of SINAI Chou on 11/08/2024 at 11:07 AM EDT Sign off status: Pending * Provider: Esteban Sumner Date: 01/03/2024 Generated for Mireya vasquez/Ryder/eTransmitting on: 11/08/2024 11:07 AM EDT
--- OUTSIDE RECORDS SUMMARY | 2024-08-22 09:09 | XMS_ITS ---
Author Organization [facility] in [place] Address [address] [place] [address] Care Team Providers Care Radio Program Director Name Role Phone MaryRip Primary Care Provider REASON FOR VISIT semaglutide Medications Medication SIG (Take, Route, Fr equency, Duration) Notes Start Date End Date Status Semaglutide MED SHOPPE Active Encounters Encounter Location Date Provider Diagnosis [facility] [address] [place] [address] 08/22/2024 Rip Jftri Plan Of Treatment Medication Medication Name Sig Start Date Stop Date Notes Semaglutide MED SHOPPE Next Appt Details Provider Name:Diego Carter, 02/12/2025 09:00:00 AM, [address] [place], [address], Progress Notes * Anastasia PONCE LDOB:1945 (78 yo F)Acc No.[id number]:08/22/2024 Patient: Anastasia DELAROSA Joseph :1945 A ge:78 Y S ex:Female Address:[address] [place] [id number] * Refills Refill Semaglutide * true * Date: Generated for Maui ng/Fadwightg/eTransmitting on: 0 11/08/2024 12:45 PM EDT
--- OUTSIDE RECORDS SUMMARY | 2024-09-13 09:29 | XMS_ITS ---
Author Organization [facility] in [place] Address [address] [place] [address] Care Team Providers Care Outbound Telemarketer Name Role Phone JfRip bartlett Primary Care Provider REASON FOR VISIT refill Vital Signs Height 64 in 09/13/2024 Weight 137 lbs 09/13/2024 BMI 23.51 kg/m2 09/13/2024 Encounters Encounter Location Date Provider Diagnosis [facility] [address] [place] [address] 09/13/2024 Rip Jftri Plan Of Treatment Next Appt Details Provider Name:Diego Carter, 02/12/2025 09:00:00 AM, [address] [place], [address], Progress Notes * TAE Anastasia LDOB:1945 (78 yo F)Acc No.[id number]:09/13/2024 Patient: Anastasia DELAROSA :1945 A ge:78 Y S ex:Female Address:[address] [place] [phone] Subjective: * Chief Complaints: * R efill * Medical History: * Surgical History: * Hospitalization/Major Diagno stic Procedure: * Medications: Objective: * Vitals: W t:137lbs, Ht: 64 in, BMI:23.51Index, Ht-cm: 162.56 cm, Wt-k.14 kg. * Physical Examination: Assessment: Plan: * Treatment: * Procedure Codes: * true * Date: Generated for Mireya vasquez/Ryder/Rosemary on: 0 11/08/2024 12:45 PM EDT
--- OUTSIDE RECORDS SUMMARY | 2024-11-07 10:30 | XMS_ITS | Encounter Summary ---
Author Organization [facility] Address [address] [place] [address] Care Team Providers Care Account Specialist Name Role Phone Rodney Hernandez MD Primary Care Provider [phone] Reason for Visit * Reason Comments Excision Encounter Details Date Type Department Care Team (Late st Contact Info) Description 11/07/2024 10:30 AM EDT Office Visit [facility] [address] [place] [phone] Renata Mustafa MD [address] [place] [address] Basal cell carcinoma (BCC) of skin of other part of torso (Primary Dx) Social History Tobacco Use Types Packs/Day Years Used Date Smoking Tobacco: Never Passive Smoke Exposure: Never Smokeless Tobacco: Never Alcohol Use Standard Drinks/Week Comments Never 0 (1 standard drink = 0.6 oz pur e alcohol) caffeine: none Comments Unknown Sex and Gender Information Value Date Recorded Sex Assigned at Female 10/12/2022 2:42 PM EDT Legal Sex Female 6:54 PM EDT Gender Identity Female 10/12/2022 2:42 PM EDT Sexual Orientation Not on file documented as of this encounter Progress Notes * Renata Mustafa MD - 11/07/2024 10:30 AM EDT Images from the original note were not included. Subjective BECKY Ponce is a 78 y.o. female who presents for the following: Excision . Location: Right breast Date of biopsy: 09/19/2024 Diagnosis: Nodular basal cell carcinoma Pre-Op Checklist: History of pacemaker/defibrillator: No History of joint replacement in the past 2 years: No History of HIV/Hepatitis B/Hepatitis C: No Latex allergy: No Is the patient currently on a blood thinner? No. All pertinent medical history, medications, and allergies were reviewed. Surgical assistants: Williams Bai CMA. Breana Angulo CMA Objective Well appearing patient in no apparent distress; mood and affect are within normal limits. Skin Exam 1. BASAL CELL CARCINOMA (BCC) OF SKIN OF OTHER PART OF TORSO Right Breast [place] macule at biopsy site Skin excision Lesion length (cm): 0.8 Lesion width (cm): 0.7 Margin per side (cm): 0.4 Total excision diameter (cm): 1.6 Informed consent: discussed and consent obtained Informed consent comment: Risks and possible complications were discussed as noted on the consent form. The consent form was signed prior to the procedure. Timeout: patient name, date of , surgical site, and procedure verified Timeout comment: Patient and provider identified site. Site was marked and excision was drawn out. Photo was taken and shown to patient, patient verified this is the correct site. Procedure prep: Patient was prepped and draped in usual sterile fashion (The planned incision lineswere drawn along relaxed skin tension lines, if possible, to minimize scarring and deformity of surrounding structures.) Prep type: Chlorhexidine Anesthesia: the lesion was anesthetized in a standard fashion Anesthesia comment: The local anesthetic was injected to create a field block at the site of the procedure. Anesthetic: 1% lidocaine w/ epinephrine 1-100,000 buffered w/ 8.4% NaHCO3 Instrument used: #15 blade Instrument used comment: Incisions were made as drawn, and the surrounding tissue was undermined until the skin edges could be approximated without undue tension. Any tissue redundancies were removed. Hemostasis achieved with: electrodesiccation Additional details: Amount of lidocaine used: 6.0 ml Estimated blood loss: 1.0 ml Skin repair Complexity: Intermediate Final length (cm): 4.7 Reason for type of repair: allow closure of the large defect Undermining: edges undermined Undermining comment: The surrounding tissue was undermined until the skin edges could be approximated without undue tension. Any tissue redundancies were removed. Subcutaneous layers (deep stitches): Suture size: 4-0 Suture type comment: Biosyn Stitches: Buried horizontal mattress (Closure was performed in a layered fashion with subcutaneous tissue closed first using tension-bearing absorbable sutures to the level of the superficial fascia.) Fine/surface layer approximation (top stitches): Suture size: 4-0 Suture type comment: Surgipro Stitches: simple running Stitches comment: Epicuticular skin sutures were then placed with minimal tension. Suture removal (days): 14 Outcome: patient tolerated procedure well with no complications Post-procedure details: sterile dressing applied and wound care instructions given Post-procedure details comment: It was emphasized to the patient to contact the office for any signs of infection, uncontrollable bleeding, or complications. Dressing type: bandage Specimen A - Dermatopathology exam Diagnosis: BCC Check Margins: Yes Previous accession number: [id number] Follow up: 14 days for s/r documented in this encounter Plan of Treatment Upcoming Encounters Date Type Department Care Team (Late st Contact Info) Description 11/21/2024 10:35 AM EDT Office Visit [facility] [address] [phone] Renata Mustafa MD [address] [facility] [address] [place] [address] 04/02/2025 9:10 AM EST Office Visit [facility] [address] [facility] [address] [place] [address] Mahi Saba, [employer] [address] [place] [address] Scheduled Orders Name Type Priority Associated Diagnoses Order Schedule Dermatopathology exam Pathology and Cytology Timed Basal cell carcinoma (BCC) of skin of other part of torso Release Upon Ordering for 1 Occurrences starting 11/07/2024 documented as of this encounter Procedures Procedure Name Priority Date/Time Associated Diagnosis Comments SKIN REPAIR Routine 11/07/2024 10:20 AM EDT Basal cell carcinoma (BCC) of skin of other part of torso SKIN EXCISION Routine 11/07/2024 10:20 AM EDT Basal cell carcinoma (BCC) of skin of other part of torso documented in this encounter Results * Skin repair (11/07/2024 10:20 AM EDT) Gaye Shen MA - 11/07/2024 10:20 AM EDT Complexity: Intermediate Final length (cm): 4.7 Reason for type of repair: allow closure of the large defect Undermining: edges undermined Undermining comment: The surrounding tissue was undermined until the skin edges could be approximated without undue tension. Any tissue redundancies were removed. Subcutaneous layers (deep stitches): Suture size: 4-0 Suture type comment: Biosyn Stitches: Buried horizontal mattress (Closure was performed in a layered fashion with subcutaneous tissue closed first using tension-bearing absorbable sutures to the level of the superficial fascia.) Fine/surface layer approximation (top stitches): Suture size: 4-0 Suture type comment: Surgipro Stitches: simple running Stitches comment: Epicuticular skin sutures were then placed with minimal tension. Suture removal (days): 14 Outcome: patient tolerated procedure well with no complications Post-procedure details: sterile dressing applied and wound care instructions given Post-procedure details comment: It was emphasized to the patient to contact the office for any signs of infection, uncontrollable bleeding, or complications. Dressing type: bandage Renata Mustafa MD DERM PROCEDURE ORDERABLES Fin al Result * Skin excision (11/07/2024 10:20 AM EDT) Gaye Shen MA - 11/07/2024 10:20 AM EDT Lesion length (cm): 0.8 Lesion width (cm): 0.7 Margin per side (cm): 0.4 Total excision diameter (cm): 1.6 Informed consent: discussed and consent obtained Informed consent comment: Risks and possible complications were discussed as noted on the consent form. The consent form was signed prior to the procedure. Timeout: patient name, date of , surgical site, and procedure verified Timeout comment: Patient and provider identified site. Site was marked and excision was drawn out. Photo was taken and shown to patient, patient verified this is the correct site. Procedure prep: Patient was prepped and draped in usual sterile fashion (The planned incision lines were drawn along relaxed skin tension lines, if possible, to minimize scarring and deformity of surrounding structures.) Prep type: Chlorhexidine Anesthesia: the lesion was anesthetized in a standard fashion Anesthesia comment: The local anesthetic was injected to create a field block at the site of the procedure. Anesthetic: 1% lidocaine w/ epinephrine 1-100,000 buffered w/ 8.4% NaHCO3 Instrument used: #15 blade Instrument used comment: Incisions were made as drawn, and the surrounding tissue was undermined until the skin edges could be approximated without undue tension. Any tissue redundancies were removed. Hemostasis achieved with: electrodesiccation Additional details: Amount of lidocaine used: 6.0 ml Estimated blood loss: 1.0 ml Renata Mustafa MD DERM PROCEDURE ORDERABLES Fin al Result documented in this encounter Visit Diagnoses Diagnosis Basal cell carcinoma (BCC) of skin of other part of torso- Primary documented in this encounter Care Teams Account Specialist Relationship Specialty Start Date End Date Rodney Hernandez MD [address] [place] [address] PCP - General Family Medicine 10/13/22 documented as of this encounter
--- OUTSIDE RECORDS SUMMARY | 2024-11-08 07:30 | XMS_ITS ---
Author Organization [facility] in [place] Address [address] [place] [address] Care Team Providers Care Information Management Manager Name Role Phone Rip Hernandez Primary Care Provider [phone] Allergies No Known Allergies REASON FOR VISIT pain in right knee goes up into thigh and into hip- told bursitis from Ortho Medications Medication SIG (Take, Route, Frequency, Duration) Notes Start Date End Date Status Cytomel 5 MCG 1 tablet on an empty stomach Orally Once a day for 30 days 04/17/2024 Active Diclofenac Sodium 75 MG Take 1 tablet by mouth twice daily for 90 days Active Amitriptyline HCl 50 MG TAKE 1 & 1/2 (ON E & ONE-HALF) TABLETS BY MOUTH AT BEDTIME for 60 days Active Fluorouracil 5 % APPLY SMALL AMOUNT T O AFFECTED AREA TWICE DAILY FOR 14 DAYS for 14 Active Lisinopril 20 MG 1 tablet Orally Once a day for 90 days Active Simvastatin 20 MG TAKE 1 TABLET BY GERRI TH ONCE DAILY IN THE EVENING for 90 Active Synthroid 75 MCG TAKE 1 TABLET BY GERRI TH EVERY MORNING ON AN EMPTY STOMACH for 90 Active Semaglutide MED SHOPPE Active Albuterol Sulfate HFA 108 (90 Base) MCG/ACT 2 puffs as needed for SOB Inhalation Q4H for 30 days 01/18/2023 Active Vitamin B Plus+ Acti ve Protonix 40 MG 1 tablet Orally Once a day for 90 days 04/17/2024 Active Montelukast Sodium 10 MG 1 tablet Orally Once a day for 90 days Active Social History Tobacco Use: Social History Observation Description Date Details (start date - stop date) Never Smoker NA - NA Tobacco Use/Smoking Question Answer Notes Patient is a nonsmoker Tobacco Control (Standard) Question Answer Notes Tobacco use: Nonsmoker Problems Problem Type SNOMED Code ICD Code Onset Dates Problem Status W/U Status Risk Notes Problem Knee internal derangement, 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) Active confirmed Vital Signs Blood pressure systolic 134 mm Hg 11/09/19 25 Blood pressure diastolic 90 mm Hg 025 Height 64 in 11/08/2024 Weight 134.2 lbs 11/08/2024 BMI 23.03 kg/m2 11/08/2024 Encounters Encounter Location Date Provider Diagnosis [facility] [address] [place] [address] 11/08/2024 Rip Hernandez Knee internal derangement, unspecified laterality M23.90 Assessments Encounter Date Diagnosis (ICD Code) Assessment Notes Treatment Notes Treatment Clinical Notes Section Notes 11/08/2024 Knee internal derangement, unspecified laterality (ICD-10 - M23.90) Plan Of Treatment Pending Test Test Name Order Date MRI KNEE RT WO CON 11/08/2024 XR KNEE RT 3V 11/08/2024 Next Appt Details Provider Name:Diego Cartre, 02/12/2025 09:00:00 AM, [address] [place], [address], Progress Notes * TAEKamilahy LDOB:1945 (78 yo F)Acc No.[id number]:11/08/2024 UNLOCKED PROGRESS NOTE Progress Note Patient: Anastasia DELAROSA Provider: Bogdan Hernandez ([facility])MD :1945 A ge:78 Y S ex:Female Date:11/08/2024 Address:[address] [place], [place] [id number] Check In:11:05 AM ESTCheck O ut:12:27 PM EST Subjective: * Chief Complaints: * 1 . pain in right knee goes up into thigh and into hip- told bursitis from Ortho. * HPI: G eneral: Bursitis - from orth - unalbe to do sports feels like in hip latterally - but als R knee with giving out sensation. * Medical History: E xercise induced bronchospasm, Postnasal drip, HTN (hypertension), Osteopenia, Osteoarthritis, Hyperlipidemia, Calcified granuloma of lung, History of abnormal cervical Pap smear, Osteoporosis.? * Surgical History: l oop electrosurgical excision procedure (LEEP) , breast biopsy-right , cataract removal , left hip replacement , cardiac catheterization 11/19/2021. * Hospitalization/Major Diagno stic Procedure: D enies Past Hospitalization. * Family History: M other: COPD, trans ischemic attack, osteoporosis, diagnosed with Unspecified polyarthropathy or polyarthritis, pelvic region and thigh. S ister(s): COPD, trans ischemic attack, diagnosed with Diabetes mellitus without mention of complication, type II or unspecified type, not stated as uncontrolled. F ather: diagnosed with Diabetes mellitus without mention of complication, type II or unspecified type, not stated as uncontrolled, Unspecified essential hypertension. * Social History: T obacco Use: T obacco Control (Standard) T obacco use: N onsmoker Electronic Cigarette use C urrent user N o Tobacco Use/Smoking P atient is a n onsmoker * Medications: T aking Albuterol Sulfate HFA 108 (90 Base) MCG/ACT Aerosol Solution 2 puffs as needed for SOB Inhalation Q4H , Taking Amitriptyline HCl 50 MG Tablet TAKE 1 & 1/2 (ONE & ONE-HALF) TABLETS BY MOUTH AT BEDTIME , Taking Cytomel(Liothyronine Sodium) 5 MCG Tablet 1 tablet on an empty stomach Orally Once a day , Taking Diclofenac Sodium 75 MG Tablet Delayed Release Take 1 tablet by mouth twice daily , Taking Fluorouracil 5 % Cream APPLY SMALL AMOUNT TO AFFECTED AREA TWICE DAILY FOR 14 DAYS , Taking Lisinopril 20 MG Tablet 1 tablet Orally Once a day , Taking Montelukast Sodium 10 MG Tablet 1 tablet Orally Once a day , Taking Protonix(Pantoprazole Sodium) 40 MG Tablet Delayed Release 1 tablet Orally Once a day , Taking Semaglutide , Notes to Pharmacist: MED SHOPPE, Taking Simvastatin 20 MG Tablet TAKE 1 TABLET BY MOUTH ONCE DAILY IN THE EVENING , Taking Synthroid(Levothyroxine Sodium) 75 MCG Tablet TAKE 1 TABLET BY MOUTH EVERY MORNING ON AN EMPTY STOMACH , Taking Vitamin B Plus+ , Medication List reviewed and reconciled with the patient * Allergies: N .K.D.A. Objective: * Vitals: W t:134.2lbs, Ht: 64 in, BP:134/90mm Hg, BMI:23.03Index, Ht-cm: 162.56 cm, Wt-k.87 kg. * Examination: A bdomen Exam:: K nee wiht some fluid - + Medial jopint likne tendensess with + LCHMAN FOR TORN MENISCUS. Assessment: * Assessment: 1. Isela ceballos internal derangement, unspecified laterality - M23.90 (Primary) Plan: * Treatment: * * Electronic signature of Rip Hernandez MD, [id number] on 11/08/2024 at 12:45 PM EDT Sign off status: Pending Visit Status: C EDILBERTO (Check Out) * Provider: Bogdan Hernandez ([facility])MD Date: 11/08/2024 Generated for Mireya vasquez/Ryder/Zulyitting on: 11/08/2024 12:45 PM EDT History and Physical Notes * HPI (History of Present Illness) Category Sub-Category Detail Notes Category Not es General Bursitis - from orth - unalbe to do sports feels like in hip latterally - but als R knee with giving out sensation Examination Category Sub-Category Detail Notes Category Not es Abdomen Exam: Knee wiht some fluid - + Medial jopint likne tendensess with + LCHMAN FOR TORN MENISCUS
--- OUTSIDE RECORDS SUMMARY | 2024-11-08 12:44 | XMS_ITS | Clinical Summary ---
Author Organization [employer] Address [id number] [address] [place] [address] Care Team Providers Care Chain Sales Consultant Name Role Phone Rodney Hernandez MD Primary Care Provider [phone] Allergies No known active allergies Medications lisinopril (PRINIVIL,ZEST RIL) 10 mg tablet Take 2 tablets (20 mg total) by mouth every morning before breakfast. 7 Active amitriptyline (ELAVIL) 50 mg tablet Take 1 tablet (50 mg total) by mouth nightly. 7 Active simvastatin (ZOCOR) 20 mg tablet Take 1 tablet (20 mg total) by mouth nightly. 7 Active diclofenac (VOLTAREN) 75 mg EC tablet Take 1 tablet (75 mg total) by mouth in the morning and 1 tablet (75 mg total) before bedtime. 11 9 Active SYNTHROID 75 mcg tablet Take 1 tablet (75 mcg total) by mouth every morning before breakfast. Take on empty stomach 4 Active cholecalcifero l, vitamin D3, 2,000 units tablet Take 1 tablet (2,000 Units total) by mouth in the morning. Active pantoprazole (PROTONIX) 40 mg EC tablet Take 1 tablet (40 mg total) by mouth in the morning. Active montelukast (SINGULAIR) 10 mg tablet Take 1 tablet (10 mg total) by mouth nightly. Active semaglutide 0.25 mg or 0.5 mg(2 mg/1.5 mL) pen injector INJECT 25 UNITS (0.25MG) SUBCUTANEOUSLY ONCE WEEKLY ON THE SAME DAY 5 Active Active Problems Problem Noted Date Diagnosed Date Thigh pain, musculoskeletal, left 01/18/2019 Aftercare following left hip joint replacement s urgery 03/09/2018 It band syndrome, left 03/09/2018 Status post total hip replacement, left 09/14/19 18 Chronic kidney disease, stage 3 07/13/2017 Essential hypertension 07/13/2017 Dyslipidemia 07/13/2017 Primary osteoarthritis of left hip 04/05/2017 Encounter for long-term (current) use of medicat ions 04/05/2017 Resolved Problems Problem Noted Date Diagnosed Date Resolved Date Osteoarthritis of one hip, left 07/13/2017 07/13/2017 Family History Medical History Relation Name Comments No Known Problems Brother Diabetes Father Arthritis Mother COPD Mother Heart disease Mother Dementia Sister Diabetes Sister Anesthesia problems Neg Hx Relation Name Status Comments Brother Alive Father Mother Sister Social History Tobacco Use Types Packs/Day Years Used Date Smoking Tobacco: Never Smokeless Tobacco: Never Tobacco Cessation:Counseling Given: Not Answered Alcohol Use Standard Drinks/Week Comments No 0 (1 standard drink = 0.6 oz pur e alcohol) Childcare Answer Date Recorded Childcare Unknown 10/12/2018 Employment Answer Date Recorded Employment Unknown 10/12/2018 Hunger Screening Answer Date Recorded Within the past 12 months we worried whether our food would run out before we got money to buy more. Never True 06/25/2024 Within the past 12 months th e food we bought just didn't last and we didn't have money to get more. Never True 06/25/2024 Purpose - Life Answer Date Recorded Purpose and direction in life Unknown Comments No Sex and Gender Information Value Date Recorded Sex Assigned at Not on file Legal Sex Female 1:04 PM EST Gender Identity Not on file Sexual Orientation Not on file Last Filed Vital Signs Vital Sign Reading Time Taken Comments Blood Pressure 120/70 06/25/2024 8:43 AM EST Pulse 83 06/11/2024 4:13 PM EST Temperature 36.6 C (97.9 F) 06/11/2024 3:28 PM EST Respiratory Rate 17 06/11/2024 4:13 PM EST Oxygen Saturation 96% 06/11/2024 4:13 PM EST Inhaled Oxygen Concentration - - Weight 64.9 kg (143 lb) 06/25/2024 8:43 AM EST Height 162.6 cm (5' 4 ) 06/25/2024 8:43 AM EST Body Mass Index 24.55 06/25/2024 8:43 AM EST Plan of Treatment Health Maintenance Due Date Last Done Comments Depression Screening 1957 DTaP,Tdap and Td Vaccines (1 - Tdap) 12/24/1966 Zoster (Shingles) Vaccine (1 of 2) 12/24/1997 Fall Risk Screening 12/24/2012 COVID-19 Vaccine (2 - 2023-2 5 season) 2024 04/02/2021 Influenza Vaccine 12/31/2024 05/23/2024, , 03/23/2022, Additional history exists Tobacco Screening 06/25/2025 06/25/2024 Goals Goal Patient Goal Type Associated Problems Recent Progress Patient-Stated? Author Improve mobility General Yes Patricia Page, RN Note: Evaluation of progress towards goal: Maximize work with PT at discharge to strengthen L hip Medical Devices Implanted Type Area [employer] Device Identifier Shelf Expiration Date Model / Serial / Lot Shl Actb 50mm Hip 3 Hl Fin Pps - [id number] Implanted:Qty : 1 on 07/13/2017 by Arnoldo Terrazas MD at [facility] Orthopedic Implant Left: Hip [employer] 05/09/2027 [id number] / / [id number] Linr Actb G7 Ntrl E1 36mm D - [id number] Implanted:Qty : 1 on 07/13/2017 by Arnoldo Terrazas MD at [facility] Orthopedic Implant Left: Hip [employer] 03/01/2022 [id number] / / [id number] Hd Fem 36mm Opt Shl Actb G7 Bl Rpl [id number] - [id number] Implanted:Qty : 1 on 07/13/2017 by Arnoldo Terrazas MD at [facility] Orthopedic Implant Left: Hip [employer] 11/19/2026 [id number] / / [id number] Stm Fem 107.5mm 133d 11 Hi Os - [id number] Implanted:Qty : 1 on 07/13/2017 by Arnoldo Terrazas MD at [facility] Orthopedic Implant Left: Hip [employer] 02/14/2027 [id number] / / [id number] Slv Fem Opt -6mm Tpr Hip Blx D Rpl [id number] - [id number] Implanted:Qty : 1 on 07/13/2017 by Arnoldo Terrazas MD at [facility] Orthopedic Implant Left: Hip [employer] 04/08/2027 [id number] / / [id number] Insurance [facility] MEDICARE Advance Directives * Full Code (Latest Code Status on File) Date Activated Date Inactivated Comments 07/13/2017 11:50 AM 07/14/2017 4:05 PM Care Teams Chain Sales Consultant Relationship Specialty Start Date End Date Rodney Hernandez MD PCP - General 04/05/17
--- OUTSIDE RECORDS SUMMARY | 2024-11-08 12:44 | XMS_ITS | Clinical Summary ---
Author Organization [facility] Address [address] [id number] Care Team Providers Care Senior Mainframe Programmer Analyst Name Role Phone Rodney Hernandez MD Primary Care Provider [phone] Allergies No known active allergies Medications diclofenac EC [address] tablet 03/02/2021 Ac tive amitriptyline 50 MG tablet 01/06/2021 Active simvastatin 20 MG tablet 01/06/2021 Active lisinopril 10 MG tablet 01/06/2021 Active alendronate 70 MG tablet 02/22/2021 Active Active Problems Problem Noted Date Diagnosed Date Rhytides 03/18/2021 Localized adiposity 03/10/2021 Atrophic skin 03/10/2021 Thigh pain, musculoskeletal, left 01/18/2019 Aftercare following left hip joint replacement s urgery 03/09/2018 Status post total hip replacement, left 09/14/19 Chronic kidney disease, stage 3 07/13/2017 Dyslipidemia 07/13/2017 Essential hypertension 07/13/2017 Primary osteoarthritis of left hip 04/05/2017 Encounter for long-term (current) use of medicat ions 04/05/2017 Social History Tobacco Use Types Packs/Day Years Used Date Smoking Tobacco: Never Smokeless Tobacco: Never Alcohol Use Standard Drinks/Week Comments Not Currently 0 (1 standard drink = 0.6 oz pur e alcohol) Comments Unknown Sex and Gender Information Value Date Recorded Sex Assigned at Not on file Legal Sex Female 10:11 AM EDT Gender Identity Not on file Sexual Orientation Not on file Last Filed Vital Signs Vital Sign Reading Time Taken Comments Blood Pressure 144/85 07/29/2021 9:16 AM EDT Pulse 91 07/29/2021 9:16 AM EDT Temperature 36.4 C (97.6 F) 07/29/2021 9:16 AM EDT Respiratory Rate - - Oxygen Saturation - - Inhaled Oxygen Concentration - - Weight 61.7 kg (136 lb) 07/29/2021 9:16 AM EDT Height 162.6 cm (5' 4 ) 07/29/2021 9:16 AM EDT Body Mass Index 23.34 07/29/2021 9:16 AM EDT Plan of Treatment Health Maintenance Due Date Last Done Comments DEXA SCAN DISCUSSION 1945 HEPATITIS C VIRUS SCREENING 1945 TETANUS 1945 TDAP (ADULT) 12/24/1966 CERVICAL CANCER SCREENING DISCUSSION 12/24/1968 MAMMOGRAM SCREENING DISCUSSION 1987 COLORECTAL CANCER SCREENING DISCUSSION 12/24/1992 ZOSTER (SHINGLES) VACCINE (1 of 2) 12/24/1997 RSV VACCINE (1 - 1-dose 75+ series) 12/24/2022 COVID-19 VACCINE (2 - season) 2024 04/02/2021 INFLUENZA VACCINE (#1) 2024 , 02/13/2020, 03/31/2017, Additional history exists PNEUMOCOCCAL VACCINE SERIES Completed 03/31/2017, 1 05/02/2016 HEP B VACCINE Aged Out No longer nahun hall based on patient's age to complete this topic Insurance PRE PAID ELECTIVE SELF PAY on file MEDICARE SUPPLEMENT GENERIC PLAN Care Teams Senior Mainframe Programmer Analyst Relationship Specialty Start Date End Date Rodney Hernandez MD PCP - General Family Medicine 03/10/21
--- OUTSIDE RECORDS SUMMARY | 2024-11-08 12:44 | XMS_ITS | Patient Health Record ---
Author Organization [facility] in [place] Address [address] [place] [address] Care Team Providers Care Quickbooks Bookkeeper Name Role Phone Rip Hernandez Primary Care Provider [phone] Diego Carter Unavailable [phone] Allergies No Known Allergies Results Component Value Reference Range Notes FREE T3 Reviewed date:04/17/2024 12:35:21 PM Interpretation: Performing Lab: Notes/Report: [facility] , Free T3 1.72 2.18-3.98 pg/mL Performing Lab: see note ML - [facility] LB GLYCOHEMOGLOBIN A1C Reviewed date:04/17/2024 12:35:21 PM Interpretation: Performing Lab: Notes/Report: [facility] , Glycohemoglobin A1C 5.7 4.5-6.2 % ADA RECOMMENDED LIMIT 4.0 - 6.0 ADA THERAPEUTIC TARGET < 7.0 ACTION SUGGESTED > 7.0 Estimated Average Glucose 117 Performing Lab: see note ML - [facility] LB IRON Reviewed date:04/17/2024 12:23:08 PM Interpretation: Performing Lab: Notes/Report: [facility] , Iron 71.0 50.0-170.0 ug/dL Performing Lab: see note ML - [facility] LB LIPID PROFILE Reviewed date:04/17/2024 12:35:21 PM Interpretation: Performing Lab: Notes/Report: [facility] , Triglycerides 87 <=150 mg/dL Cholesterol 203 <=200 mg/dL HDL Cholesterol 82 40-60 mg/dL > or =60 mg/dl - LOW CARDIOVASCULAR RISK <40 mg/dl - HIGH CARDIOVASCULAR RISK LDL Cholesterol Calculated 104.0 <100 mg/dl OPTIMAL 100-129 mg/dl NEAR OR ABOVE OPTIMAL 130-159 mg/dl BORDERLINE HIGH 160-189 mg/dl HIGH >190 mg/dl VERY HIGH VLDL CHOLESTEROL 17.4 Chol HDL Ratio 2.5 3.3 - 4.4 LOW RISK 4.4 - 7.1 AVERAGE RISK 7.1 - 11.0 MODERATE RISK >11.0 HIGH RISK Performing Lab: see note ML - [facility] PROF 14(COMP METB) Reviewed date:04/17/2024 12:35:21 PM Interpretation: Performing Lab: Notes/Report: [facility] , Sodium 142 136-145 mmol/L Potassium 4.4 3.5-5.1 mmol/L Chloride 105 98-107 mmol/L Carbon Dioxide 29.2 21.0-32.0 mmol/L Anion Gap 12.2 Glucose 90 74-106 mg/dL Blood Urea Nitrogen 29.0 7.0-18.0 mg/dL Creatinine 1.06 0.55-1.02 mg/dL Estimated GFR ( Rosa >60 >=60 mL/min/1.73m 2 Estimated GFR (Non- Darline 50 >=60 mL/min/1.73m 2 BUN Creatinine Ratio 27.4 Calcium 9.3 8.5-10.1 mg/dL Bilirubin Total 0.5 0.2-1.0 mg/dL Aspartate Amino Transferase 19 15-37 U/L Alanine Aminotransferase 27 14-59 U/L Alkaline Phosphatase 63 46-116 U/L Total Protein 7.0 6.4-8.2 g/dL Albumin Level 3.6 3.4-5.0 g/dL Globulin 3.4 Albumin Globulin Ratio 1.1 Performing Lab: see note ML - [facility] LB T4 Reviewed date:04/17/2024 12:35:21 PM Interpretation: Performing Lab: Notes/Report: [facility] , T4 Thyroxine 7.40 4.80-13.90 ug/dL Performing Lab: see note ML - [facility] TSH Reviewed date:04/17/2024 12:35:21 PM Interpretation: Performing Lab: Notes/Report: [facility] , Thyroid Stimulating Hormone 0.374 0.358-3.740 uIU/mL Performing Lab: see note ML - [facility] LB MM tomosynthesis screening B I Reviewed date:04/17/2024 04:05:08 PM Interpretation: Performing Lab: Notes/Report: Source Facility: [facility] [place] [address] [facility] [address] [place] [address] Mammography Report Signed Patient: ANASTASIA PONCE MR#: [id number] : 1945 Acct:[id number] Age/Sex: 78 / F ADM Date: 04/17/24 Loc: MAMMO Attending Dr: Jennifer Sumner PRESS MANAGER Ordering Physician: Jennifer Sumner NP Results: Date of Service: 04/17/24 Follow Up: Procedure(s): MM tomosynthesis screening BI Accession Number(s): [id number] cc: Rodney Hernandez M.D.; Jennifer Sumner NP Patient Name: ANASTASIA PONCE MR#: [id number] : 1945 Exam Date: 04/17/2024 Ordering Doctor: Jennifer Sumner RADIOLOGY REPORT PROCEDURE: MM TOMOSYNTHESIS SCREENING BI COMPARISON: MM TOMOSYNTHESIS SCREENING BI, 04/12/2023. MG MAMM SCREEN 3D YONI CAD, 04/07/2022. INDICATIONS: Screening Calculator Name NCI Breast Cancer Risk Assessment Tool 5 Year Breast Cancer Risk 2.90% Lifetime Breast Cancer Risk 5.90% Personal Breast Cancer No Personal Ovarian Cancer No Treatments None Family Cancers None LOCATION: [facility] BREAST COMPOSITION: The breasts are heterogeneously dense,which may obscure small masses. FINDINGS: DIAGNOSTIC CATEGORY 2--BENIGN FINDING. NO CHANGE FROM COMPARISON. Scattered benign-appearing calcifications are present. Scattered benign-appearing lymph nodes are present. RIGHT BREAST: No significant suspicious finding. LEFT BREAST: No significant suspicious finding. Stable micro clip marker lower inner quadrant, mid breast RECOMMENDATIONS: ROUTINE MAMMOGRAM AND CLINICAL EVALUATION IN 12 MONTHS. PLEASE NOTE: A NORMAL MAMMOGRAM DOES NOT EXCLUDE THE POSSIBILITY OF BREAST CANCER. A CLINICALLY SUSPICIOUS PALPABLE LUMP SHOULD BE BIOPSIED. Dictated by: Damaso Nice MD on 04/17/2024 at 12:53 Approved by: Damaso Nice MD on 04/17/2024 at 12:55 Dictated By: Damaso Nice M.D. Signed By: 04/17/24 1256 DD/ 1255 TD/TT: Road Design Engineer: [place] [address] Mammography Report Signed Patient: ANASTASIA PONCE MR#: [id number] : 1945 Acct:[id number] Age/Sex: 78 / F ADM Date: 04/17/24 Loc: MAMMO Attending Dr: Jennifer Sumner PRESS MANAGER Ordering Physician: Jennifer Sumner NP Results: Date of Service: 04/17/24 Follow Up: Procedure(s): MM tomosynthesis screening BI Accession Number(s): [id number] cc: Rodney Hernandez M.D. ; Jennifer Sumner NP Patient Name: ANASTASIA PONCE MR#: [id number] : 1945 Exam Date: 04/17/2024 Ordering Doctor: Wu Sumner RADIOLOGY REPORT PROCEDURE: MM TOMOSYNTHESIS SCREENING BI COMPARISON: MM TOMOSYNTHESIS SCREENING BI, 04/12/2023. MG MAMM SCREEN 3D YONI CAD, 04/07/2022. INDICATIONS: Screening Calculator Name NCI Breast Cancer Risk Assessment Tool 5 Year Breast Cancer Risk 2.90% Lifetime Breast Canc er Risk 5.90% Personal Breast Canc er No Personal Ovarian Can cer No Treatments None Family Cancers None LOCATION: [facility] BREAST COMPOSITION: The breasts are heterogeneously dense,which may obscure small masses. FINDINGS: DIAGNOSTIC CATEGORY 2--BENIGN FINDING. NO CHANGE FROM COMPARISON. Scattered benign-appearing calcifications are present. Scattered benign-appearing lym ph nodes are present. RIGHT BREAST: No significant suspicious finding. LEFT BREAST: No significant suspicious finding. Stable micro clip marker lower inner quadrant , mid breast RECOMMENDATIONS: ROUTINE MAMMOGRAM AN D CLINICAL EVALUATION IN 12 MONTHS. PLEASE NOTE: A RIOS L MAMMOGRAM DOES NOT EXCLUDE THE POSSIBILITY OF BREAST CANCER. A CLINICALLY SUSPICIOUS PALPABLE LUMP SHOULD BE BIOPSIED. Dictated by: Damaso Nice MD on 04/17/2024 at 12:53 Approved by: Damaso Nice MD on 04/17/2024 at 12:55 Dictated By: Joon Nice M.D. Signed By: 04/17/24 1256 DD/ 1255 TD/TT: Road Design Engineer: CBC AUTO DIFF Reviewed date:04/17/2024 12:17:13 PM Interpretation: Performing Lab: Notes/Report: [facility] , White Blood Count 5.3 4.0-11.0 10 3/uL Red Blood Count 4.38 4.20-5.40 10 6/uL Hemoglobin 13.6 12.0-16.0 g/dL Hematocrit 42.1 36.0-48.0 % Mean Corpuscular Volume 96.1 81.0-99.0 fL Mean Corpuscular Hemoglobin 31.1 26.7-34.0 pg Mean Corpuscular HGB Conc 32.3 29.9-35.2 g/dL Red Cell Distribution Width 12.2 11.0-15.0 % Platelet Count 241 150-450 10 3/uL Mean Platelet Volume 8.7 9.5-13.5 fL Neutrophils Percent Auto 65.5 43.0-75.0 % Lymphocytes Percent Auto 23.5 20.5-60.0 % Monocytes Percent Auto 7.9 1.7-12.0 % Eosinophils Percent Auto 2.1 0.9-7.0 % Basophils Percent Auto 0.8 0.2-2.0 % Immature Granulocytes Pct Auto 0.2 0.0-0.5 % Neutrophils Absolute Auto 3.5 1.4-6.5 10 3/uL Lymphocytes Absolute Auto 1.3 1.2-3.8 10 3/uL Monocytes Absolute Auto 0.4 0.3-0.8 10 3/uL Eosinophils Absolute Auto 0.1 0.0-0.7 10 3/uL Basophils Absolute Auto 0.0 0.0-0.1 10 3/uL Immature Granulocytes Abs Auto 0.01 0.00-0.03 10 3/uL Performing Lab: see note - [facility] LB TSH Reviewed date:03/20/2024 08:08:43 PM Interpretation: Performing Lab: Notes/Report: [facility] , Thyroid Stimulating Hormone 0.200 0.358-3.740 uIU/mL Performing Lab: see note - [facility] LB T4 Reviewed date:03/20/2024 08:08:43 PM Interpretation: Performing Lab: Notes/Report: [facility] , T4 Thyroxine 9.70 4.80-13.90 ug/dL Performing Lab: see note - [facility] LB FREE T3 Reviewed date:03/20/2024 08:08:43 PM Interpretation: Performing Lab: Notes/Report: [facility] , Free T3 2.96 2.18-3.98 pg/mL Performing Lab: see note ML - [facility] LB VITAMIN D 25 [place] Reviewed date:04/17/2024 12:54:53 PM Interpretation: Performing Lab: Notes/Report: [facility] , Vitamin D 67.8 <20 ng/mL Vit D deficient 20-<30 ng/mL Vit D insufficient 30-100 ng/mL Vit D sufficient >100 ng/mL Potential Toxicity Performing Lab: see note ML - [facility] LB Reason For Referral No Information Medications Medication SIG (Take, Route, Frequency, Duration) Notes Start Date End Date Status Simvastatin 20 MG TAKE 1 TABLET BY GERRI TH ONCE DAILY IN THE EVENING for 90 Active Synthroid 75 MCG TAKE 1 TABLET BY GERRI TH EVERY MORNING ON AN EMPTY STOMACH for 90 Active Protonix 40 MG 1 tablet Orally Once a day for 90 days 04/17/2024 Active Semaglutide MED SHOPPE Active Cytomel 5 MCG 1 tablet on an empty stomach Orally Once a day for 30 days 04/17/2024 Active Diclofenac Sodium 75 MG Take 1 tablet by mouth twice daily for 90 days Active Albuterol Sulfate HFA 108 (90 Base) MCG/ACT 2 puffs as needed for SOB Inhalation Q4H for 30 days 01/18/2023 Active Vitamin B Plus+ Acti ve Amitriptyline HCl 50 MG TAKE 1 & 1/2 (ON E & ONE-HALF) TABLETS BY MOUTH AT BEDTIME for 60 days Active Montelukast Sodium 10 MG 1 tablet Orally Once a day for 90 days Active Fluorouracil 5 % APPLY SMALL AMOUNT T O AFFECTED AREA TWICE DAILY FOR 14 DAYS for 14 Active Lisinopril 20 MG 1 tablet Orally Once a day for 90 days Active Immunizations Vaccine Route Administration Date Status Comme nts Flu, Fluad (45947) 65 yrs+, single-dose syringe (6724-2895) Unknown 03/17/2022 Administered Flu, Fluad (41559) 65 yrs+, single-dose syringe (6858-7692) Unknown 05/18/2023 Administered Pneumococcal (Pneumovax 23) Unknown 03/31/2017 Administ ered Pneumococcal (Prevnar 13) Unknown 03/02/2017 Administer ed SARS-COV-2 (COVID 19 Pfizer 30mcg/0.3mL) Unknown 04/02/2021 Administered Social History Tobacco Use: Social History Observation Description Date Details (start date - stop date) Never Smoker NA - NA Tobacco Use/Smoking Question Answer Notes Patient is a nonsmoker Alcohol Screen (Audit-C) Question Answer Notes Did you have a drink contain ing alcohol in the past year? Yes How often did you have 6 or more drinks on one occasion in the past year? Never (0 point) How many drinks did you have on a typical day when you were drinking in the past year? 1 or 2 drinks (0 point) How often did you have a dri nk containing alcohol in the past year? 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 Problem Postnasal drip (76757276) Postnasal drip (R09.82) Active confirmed Problem Hypertension (08390204) Hypertension (I10) Active confirmed Problem Asthma (395784301) Asthma (J45.909) Active confirmed Problem Gastroesophageal reflux disease (537112570) GERD (gastroesophage al reflux disease) (K21.9) Active confirmed Problem Hypothyroid (93225044) Hypothyroid (E03.9) Active confirmed Problem Arthritis (4557941) Arthritis (M19.90) Active confirmed Problem Osteopenia (289911570) Osteopenia (M85.80) Active confirmed Problem Derangement of knee (73866067) Knee internal derangement, 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) Active confirmed Vital Signs Heart Rate 78 /min 02/08/2024 Temperature 96 degrees Fahrenheit 02/08/2024 Respiratory Rate 18 /min 02/08/2024 Oximetry 96 % 02/08/2024 Blood pressure diastolic 90 mm Hg 11/08/2024 Height 64 in 11/08/2024 Blood pressure systolic 134 mm Hg 11/08/2024 Weight 134.2 lbs 11/08/2024 BMI 23.03 kg/m2 11/08/2024 Encounters Encounter Location Date Provider Diagnosis [facility] [address] [place] [address] 04/18/2024 Rip Hernandez [facility] [address] [place] [address] 05/28/2024 Rip Rhoadestri [facility] [address] [place] [address] 06/18/2024 Rip Mary [facility] [address] [place] [address] 07/25/2024 Rip Hernandez Hypothyroid E03.9 [facility] [address] [place] [address] 08/22/2024 Rip Hernandez [facility] [address] [place] [address] 09/13/2024 Rip Mary [facility] [address] [place] [address] 02/08/2024 Rip Hernandez Hypothyroid E03.9 [facility] [address] [place] [address] 03/07/2024 Rip Mary [facility] [address] [place] [address] 03/20/2024 Rip Mary [facility] [address] [place] [address] 04/17/2024 Rip Hernandez Hypothyroid E03.9 [facility] [address] [place] [address] 04/17/2024 Rip Mary [facility] [address] [place] [address] 04/18/2024 Rip Hernandez [facility] [address] [place] [address] 11/16/2023 Rip tri [facility] [address] [place] [address] 11/18/2023 Rip Hernandez [facility] [address] [place] [address] 01/16/2024 Diego Carter [facility] [address] [place] [address] 02/08/2024 Diego Carter Exercise induced bronchospasm J45.990 and Postnasal drip R09.82 [facility] [address] [place] [address] 11/08/2024 Rip Hotri Knee internal derangement, unspecified laterality M23.90 [facility] [address] [place] [address] 04/17/2024 Rip Hotri Hypothyroid E03.9 ; Arthritis M19.90 ; Hypertension I10 ; Osteopenia M85.80 and GERD (gastroesophageal reflux disease) K21.9 Assessments Encounter Date Diagnosis (ICD Code) Assessment Notes Treatment Notes Treatment Clinical Notes Section Notes 04/17/2024 Hypothyroid (ICD-10 - E03.9) 04/17/2024 Arthritis (ICD-10 - M19.90) 11/08/2024 Knee internal derangement, unspecified laterality (ICD-10 - M23.90) 02/08/2024 Hypothyroid (ICD-10 - E03.9) 04/17/2024 Hypothyroid (ICD-10 - E03.9) 07/25/2024 Hypothyroid (ICD-10 - E03.9) 02/08/2024 Exercise induced bronchospasm (ICD-10 - J45.990) Continues to voice good response to Singulair. No pulmonary issues over the last year. As with last year, I addressed with the patient that a standard of care is that she have an active albuterol prescription available for her in the event she would have an exacerbation. She stated she did not want 1 sent in because she did not want to have to pick it up. I explained to her that even if the pharmacy fills the, she will not be charged until she actually picks it up; may not show for only 1 to 2 weeks until the pharmacist puts it back into stock. Refills for Singulair and albuterol were sent into her pharmacy. Follow-up 1 year. 02/08/2024 Postnasal drip (ICD-10 - R09.82) She previously required Flonase on top of Singulair to control her sinus congestion, but now states that she is on singular only and has no sinus complaints. If she begins having symptoms, she should restart Flonase. 04/17/2024 Hypertension (ICD-10 - I10) 04/17/2024 Osteopenia (ICD-10 - M85.80) 04/17/2024 GERD (gastroesophageal reflux disease) (ICD-10 - K21.9) if not better on protonix - needs EGD Plan Of Treatment Pending Test Test Name Order Date CMP (COMPLETE METABOLIC PANEL) 3 CMP (COMPLETE METABOLIC PANEL) 4 HEMOGLOBIN A1C (GLYCO) 04/17/2024 HEMOGLOBIN A1C (GLYCO) 04/12/2023 IRON, TOTAL 04/12/2023 IRON, TOTAL 04/17/2024 LIPID PANEL (CHOL/TRIG/HDL/LDL) 04/17/20 24 LIPID PANEL (CHOL/TRIG/HDL/LDL) 04/12/20 23 CBC WITH DIFF 04/12/2023 CBC WITH DIFF 04/17/2024 VITAMIN D, 25 LEVEL (TOTAL) 04/17/2024 VITAMIN D, 25 LEVEL (TOTAL) 04/12/2023 DEXA Axial Skeleton (hips, pelvis, spine )* 06/03/2023 T3 FREE, T4 FREE and TSH 04/12/2023 Insulin Level 04/12/2023 THYROID PROFILE WITH TSH 08/01/2023 MRI KNEE RT WO CON 11/08/2024 XR KNEE RT 3V 11/08/2024 THYROID PANEL (T4/TSH/FREE T3) 4 THYROID PANEL (T4/TSH/FREE T3) 3 THYROID PANEL (T4/TSH/FREE T3) 4 THYROID PANEL (T4/TSH/FREE T3) 4 Next Appt Details Provider Name:Diego Carter, 02/12/2025 09:00:00 AM, [address] [place], [address], Insurance Providers Payer Name Payer Address Payer Phone Subscriber Number Group Number Insured Name Patient Relationship to Insured Coverage Start Date Coverage End Date [employer] [address] [facility], [place] [phone] [id number] Anastsaia Ponce Self - patient is the insured 3 Medical (General) History Medical History History ICD Code Exercise induced bronchospasm J45.990 Postnasal drip R09.82 HTN (hypertension) I10 Osteopenia M85.80 Osteoarthritis M19.90 Hyperlipidemia E78.5 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
--- OUTSIDE RECORDS SUMMARY | 2024-11-08 12:45 | XMS_ITS | Clinical Summary ---
Author Organization [facility] Healthcare Address [address] [place] [address] Care Team Providers Care Compound Filler Name Role Phone Rodney Hernandez MD Primary Care Provider [phone] Allergies No known active allergies Medications Acetaminophen Extra Strength 500 MG tablet 3 Active alendronate (Fosamax) 70 MG tablet Active amitriptyline (Elavil) 50 MG tablet Active celecoxib (CeleBREX) 200 MG capsule Take 200 mg by mouth Daily 3 Active cephalexin (Keflex) 500 MG capsule 3 Active diclofenac (Voltaren) 75 MG EC tablet Active fluorouracil (Efudex) 5 % solution every 12 (twelve) hours Active levothyroxine (Synthroid, Levoxyl) 75 MCG tablet Active liothyronine (Cytomel) 5 MCG tablet Active lisinopril 10 MG tablet Active montelukast (Singulair) 10 MG tablet in the morning. Active ondansetron ODT (Zofran-ODT) 4 MG disintegrating tablet 3 Active ondansetron (Zofran) 4 MG tablet 3 Active oxyCODONE (Roxicodone) 5 MG immediate release tablet 3 Active phenazopyridine (Pyridium) 200 MG tablet 3 Active polyvinyl alcohol (Liquifilm Tears) 1.4 % ophthalmic solution Administer 1 drop into both eyes Active simvastatin (Zocor) 20 MG tablet Active sulfamethoxazole-t rimethoprim (Bactrim DS) 800-160 MG per tablet Take 1 tablet by mouth in the morning and 1 tablet before bedtime. 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 Encounters Date Type Department Care Team Description 11/07/2024 10:30 AM EDT Office Visit [facility] [address] [place] [phone] Renata Mustafa MD Basal cell carcinoma (BCC) of skin of other part of torso (Primary Dx) 11/07/2024 Travel 09/27/2024 Results Follow-Up [facility] [address] [place] [phone] Mahi Saba APRN-KYLE 09/19/2024 8:30 AM EDT Office Visit [facility] [address] [place] [phone] Mahi Saba MUSIC MIXER-KYLE Seborrheic keratosis (Primary Dx); Lentigines; Actinic keratosis; History of SCC (squamous cell carcinoma) of skin; Neoplasm of unspecified behavior of bone, soft tissue, and skin 09/19/2024 Bamboo flowsheet [facility] [address] [place] [phone] Mahi aSba APRN-IT DESKTOP SUPPORT SPECIALIST 09/19/2024 Travel from Last 3 Months Family History Medical History Relation Name Comments Diabetes Father Glaucoma Father Cataracts Mother Diabetes Mother Heart disease Mother Stroke Mother Melanoma Neg Hx Relation Name Status Comments Father Mother Social History Tobacco Use Types Packs/Day Years Used Date Smoking Tobacco: Never Passive Smoke Exposure: Never Smokeless Tobacco: Never Tobacco Cessation:Counseling Given: No Alcohol Use Standard Drinks/Week Comments Never 0 (1 standard drink = 0.6 oz pur e alcohol) caffeine: none Comments Unknown Sex and Gender Information Value Date Recorded Sex Assigned at Female 10/12/2022 2:42 PM EDT Legal Sex Female 6:54 PM EDT Gender Identity Female 10/12/2022 2:42 PM EDT Sexual Orientation Not on file Last Filed Vital Signs Vital Sign Reading Time Taken Comments Blood Pressure 158/66 10/13/2022 2:49 PM EDT No latex allergy, no PM or DF, no flomax Pulse 91 10/13/2022 2:49 PM EDT Temperature - - Respiratory Rate - - Oxygen Saturation - - Inhaled Oxygen Concentration - - Weight - - Height 162.6 cm (5' 4 ) 04/14/2022 12:0 0 PM EST Body Mass Index - - Plan of Treatment Upcoming Encounters Date Type Department Care Team (Late st Contact Info) Description 11/21/2024 10:35 AM EDT Office Visit [facility] [address] [place] [phone] Renata Mustafa MD [address] [place] [address] 04/02/2025 9:10 AM EST Office Visit [facility] [address] [place] [phone] Mahi Saba APRN-KYLE [address] [place] [address] Health Maintenance Due Date Last Done Comments Influenza Vaccine (#1) 2024 5, 05/18/2023, 03/23/2022, Additional history exists Pneumococcal Vaccine: 65+ Years Completed 7, 03/02/2017 Procedures Procedure Name Priority Date/Time Associated Diagnosis Comments SKIN REPAIR Routine 11/07/2024 10:20 AM EDT Basal cell carcinoma (BCC) of skin of other part of torso SKIN EXCISION Routine 11/07/2024 10:20 AM EDT Basal cell carcinoma (BCC) of skin of other part of torso SKIN / NAIL BIOPSY Routine 09/19/2024 8: 29 AM EDT Neoplasm of unspecified behavior of bone, soft tissue, and skin SKIN / NAIL BIOPSY Routine 09/19/2024 8: 27 AM EDT Neoplasm of unspecified behavior of bone, soft tissue, and skin ZZDERMATOPATHOLOGY EXAM UNORDERABLE Routine 09/19/2024 12:00 AM EDT Seborrheic keratosis Neoplasm of unspecified behavior of bone, soft tissue, and skin DERMATOPATHOLOGY EXAM Routine 09/19/2024 12:00 AM EDT Neoplasm of unspecified behavior of bone, soft tissue, and skin from Last 3 Months Results * Skin repair (11/07/2024 10:20 AM EDT) Gaye hSen MA - 11/07/2024 10:20 AM EDT Complexity: [...] uncontrollable bleeding, or complications. Dressing type: bandage us Renata Mustafa MD DERM PROCEDURE ORDERABLES Fin [...] 6.0 ml Estimated blood loss: 1.0 ml us Renata Mustafa MD DERM PROCEDURE ORDERABLES Fin al Result * Lesion biopsy (09/19/2024 8:29 AM EDT) Narrative Belkis ArriagaRADHA - 09/19/2024 8:29 AM EDT Type of biopsy: tangential Informed consent: discussed and consent obtained Informed consent comment: The risks and benefits of the biopsy were discussed. Risks include but are not limited to bleeding, infection, scarring, pain, and nerve damage. An opportunity to ask questions prior to the procedure was permitted and all questions were answered. Patient was prepped and draped in usual sterile fashion: area cleansed with alcohol. Anesthesia: the lesion was anesthetized in a standard fashion Anesthetic: 1% lidocaine w/ epinephrine 1-100,000 buffered w/ 8.4% NaHCO3 Instrument used: DermaBlade Hemostasis achieved with: electrodesiccation Outcome: patient tolerated procedure well Outcome comment: The specimen was placed in a prelabeled formalin container to be sent for pathology Post-procedure details: sterile dressing applied and wound care instructions given Post-procedure details comment: Emphasized need to contact clinic for any signs of infection, uncontrollable bleeding, or complications. Dressing type: bandage Additional details: Photo taken Amount of lidocaine used: 0.3 cc Mahi Saba MUSIC MIXER-IT DESKTOP SUPPORT SPECIALIST DERM PROCEDURE ORDERAB LES Final Result * Lesion biopsy (09/19/2024 8:27 AM EDT) Narrative Judson ArriagaRADHA johnson - 09/19/2024 8:27 AM EDT Type of biopsy: tangential Informed consent: discussed and consent obtained Informed consent comment: The risks and benefits of the biopsy were discussed. Risks include but are not limited to bleeding, infection, scarring, pain, and nerve damage. An opportunity to ask questions prior to the procedure was permitted and all questions were answered. Patient was prepped and draped in usual sterile fashion: area cleansed with alcohol. Anesthesia: the lesion was anesthetized in a standard fashion Anesthetic: 1% lidocaine w/ epinephrine 1-100,000 buffered w/ 8.4% NaHCO3 Instrument used: DermaBlade Hemostasis achieved with: electrodesiccation Outcome: patient tolerated procedure well Outcome comment: The specimen was placed in a prelabeled formalin container to be sent for pathology Post-procedure details: sterile dressing applied and wound care instructions given Post-procedure details comment: Emphasized need to contact clinic for any signs of infection, uncontrollable bleeding, or complications. Dressing type: bandage Additional details: Photo taken Amount of lidocaine used: 0.4 cc Result [facility] Mahi Saba MUSIC MIXER-[facility] DERM PROCEDURE ORDERAB LES Final Result * Dermatopathology exam (09/19/2024 12:00 AM EDT) SPECIMEN TYPE SPECIMEN: LEFT LOWER LEG- ANTERIOR [facility] ICD10 Code D23.70 [facility] PROTOCOL F - FLAT [facility] Final Diagnosis LICHENOID KERATOSIS. COMMENT: There is a small focus along one edge of compact parakeratosis and the possibility of porokeratosis was considered in the histologic differential diagnosis. [facility] Gross Text [facility] Microscopic Description Microscopic examination performed. [facility] SPECIMEN TYPE SPECIMEN: RIGHT BREAST [facility] ICD10 Code C44.511 [facility] PROTOCOL F - FLAT [facility] Final Diagnosis BASAL CELL CARCINOMA, WITH NODULAR FEATURES, CHRONICALLY INFLAMED AND TRANSECTED. [facility] Gross Text [facility] Microscopic Description Microscopic examination performed. [facility] CPT 65744*2 [facility] Skin (tissue) specimen (specimen) Topography unknown / Unknown 09/19/2024 8:27 AM EDT Comment:Differential Diagnos is: SCC vs AK vs ISK Check Margins: No Size of lesion: 1.0 x 1.0 cm Skin (tissue) specimen (specimen) Topography unknown / Unknown 09/19/2024 8:29 AM EDT Comment:Differential Diagnos is: BCC vs Other Check Margins: No Size of lesion: 0.8 x 0.7 cm Mahi Saba MUSIC MIXER-IT DESKTOP SUPPORT SPECIALIST LAB PATHOLOGY ORDERABL ES Final Result [facility] from Last 3 Months Insurance [employer] MEDICARE ADVANTAGE Care Teams Compound Filler Relationship Specialty Start Date End Date Rodney Hernandez MD [address] [place] [address] PCP - General Family Medicine 10/13/22
--- NOTE | 2024-11-08 12:46 | XR_ITS ---
The [address] [address] Patient Name: BECKY STRONG MRN: [id number] date: 1945 Sex: F Assigned Patient Location: [facility] Current Patient Location: [facility] Accession/Order Number: [id number] Exam Date: 11/08/2024 13:13 Report Date: 11/08/2024 13:15 At the request of: DORCAS AGUIRRE MD Procedure: XR knee RT 3V RIGHT KNEE - 3 views COMPARISON: None CLINICAL DATA: Right knee pain for the past few months, without specific injury. AP, lateral and internal oblique views were obtained. There is osteopenia. A bone island is visualized at the proximal fibula. No acute fractures or dislocation are identified. There is no disproportionate joint space narrowing. There is minor marginal spurring, greatest at the posterior patella. Potential subchondral lucency is seen at the patellar facets on the lateral view. There is no effusion or soft tissue swelling. XR/XR knee RT 3V IMPRESSION: OSTEOPENIA AND MILD DEGENERATIVE CHANGE, GREATEST AT THE PATELLA. Impression dictated by: Genny Talbot M.D. 11/08/2024 1:15 PM Dictation Location: [place] [address] Electronically authenticated by: [id number] Y Date: 11/08/2024 13:15
--- OUTSIDE RECORDS SUMMARY | 2024-11-08 12:46 | XMS_ITS | Patient Health Record ---
Author Organization [facility] vices Address [address] [place], [place] [address] Care Team Providers Care Computer Operations Manager Name Role Phone Jennifer Sumner Unavailable [phone] Allergies No Known Allergies Results Component Value Reference Range Notes THINPREP HPV HIGH RISK (age 25-65) Reviewed date:03/05/2024 02:35:21 PM Interpretation: Performing Lab: Notes/Report: HPV 16 NEGATIVE HPV 18 NEGATIVE OTHER HR HPV GENOTYPES POSITIVE A Testing methodology is real-time PCR utilizing hydrolysis probes with the Padmini Lena system. The test individually detects genotypes 16 and 18, as well as the other 12 high risk types (31,33,35,39,45,51,52,56,58 ,59,66,68). The expected result is negative. A negative result does not rule out the presence of HPV not included in the genotype set, a low level of infection or specimen sampling error. Test performed at [facility] [address] [place] [address] CLIA Number [id number] CAP Accreditation Number [id number] [address] [place] [address] CLIA No. [id number] CAP Accreditation No. [id number] Bellman: Peg Escobar M.D. HPV INTERPRETATION POSITIVE NEGATIVE THINPREP PAP (age 21-65) Reviewed date:03/05/2024 02:35:16 PM Interpretation: Performing Lab: Notes/Report: Atrophic changes present. SOURCE Unspecified SLIDES: 1 LMP: NOT GIVEN SPECIMEN ADEQUACY: Satisfact ory for evaluation. INTERPRETATION: SEE NOTE ASCUS/EPITH. ABNORMALITY; SEE BELOW EPITHELIAL CELL ABNORMALITY Atypical squamous cells of undetermined significance (ASC-US) GAME AGENT: SEE NOTE Li Pulido PATHOLOGIST INTERPRETATION BY: Maria C Quinonez LOCATION: Specimens processed and interpreted at [facility], [address] [place] [address], , CLIA: [id number] [facility] [address], [id number] UNLESS OTHERWISE INDICATED, COMPUTER AIDED AND GAME AGENT SCREENING PERFORMED. The Pap test is a screening test with an inherent, but low probability of error. Your patient should be reminded to consult you immediately if she experiences any suspicious signs or symptoms, regardless of her Pap test result. An alternate report format containing images or consolidated prior Pap history is available as applicable. Test performed at [facility] [address] [place] [address] CLIA Number [id number] [facility] Accreditation Number [id number] UNLESS OTHERWISE INDICATED, ALL TESTING PERFORMED AT: [facility] [address] [place] [address] MEDICAL CODING AUDITOR: ERNESTO MCCLOUD M.D. CLIA NUMBER [id number] CAP ACCREDITATION AUID [id number] Changes in testing location may be associated with reference range changes for a number of analytes. Please review reference intervals carefully. Reason For Referral Reason eval and treat Diagnosis 1 ASCUS with positive high risk HPV cervical (R87.610) Referral Organization Main Referring Provider First Name Jennifer Referring Provider Last Name Burak Referring Provider Speciality Nurse Prac arcadior Referred Provider Promedicrita DRUM TENDER [facility] Referred Provider Specialty OB - Gynecol ogy General Notes Phylicia Lunsford 08:28:10 AM >{{TOFIRSTNAME}} This is [facility] following up on an outstanding referral that was ordered by your provider. Please call our office at , so we can _update our records., Phylicia Lunsford 03/26/2024 11:34:15 AM >No response from patient, closing referral per protocol. Referral Priority Routine Medications Medication SIG (Take, Route, Frequency, Duration) Notes Start Date End Date Status Vitamin D 50 MCG (1999) 1 capsule Ora lly Once a day Active Montelukast Sodium 10 MG Oral for 30 Days Active Levothyroxine Sodium 75 MCG 1 tablet in the morning on an empty stomach Oral Once a day for 30 days Synthroid Active Amitriptyline HCl 50 MG 1 tablet at bedt kermit Oral Once a day for 90 days Active Diclofenac Sodium 75 MG Oral for 90 Days Active Social History Tobacco Use: Social History Observation Description Date Details (start date - stop date) Never Smoker NA - NA Sex Assigned At : Social History Observation Description Sex Assigned At Female Tobacco Use/Smoking Question Answer Notes Tobacco use: nonsmoker patient enter ed data CAGE-AID Questionnaire (2018 Edition) Question Answer Notes Have you ever felt that you ought to cut down on your drinking or drug use? No patient entered data Have people annoyed you by c riticizing your drinking or drug use? No patient entered data Have you ever felt bad or gu ilty about your drinking or drug use? No patient entered data Have you ever had a drink or used drugs first thing in the morning to steady your nerves or to get rid of a hangover? No patient entered data CAGE-AID Score 0 Interpretation Negative PRAPARE Question Answer Notes Date Completed/Updated: 12/29/2022 robbin nt entered data What is your current housing situation? I have housing patient entered data Are you worried about losing your housing? No patient entered data What is the highest level of school that you have finished? More than high school patient entered data What is your current work situation? Otherwise unemployed but not seeking work (ex. 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 Check all that apply I do not have problems meeting my needs Has lack of transportation k ept you from medical appointments, meetings, work or from getting things needed for daily living? No How often do you see or talk to people that you care about and feel close to? (For example: talking to friends on the phone, visiting friends or family, going to shinto or club meetings) More than 5 times a week patient entered data How stressed are you? Stress is when someone feels tense, nervous, anxious, or can't sleep at night because their mind is troubled A little bit patient entered data In the past year have you sp ent more than 2 nights in a row in a group home, assisted, assisted center, or juvenile correctional facility? No patient entered data Are you a refugee? No patient en tered data What country are you from? [place] nima lewis entered data Do you feel physically and emotionally safe where you currently live? Yes patient entered data In the past year, have you b een afraid of your partner or ex-partner? No patient entered data PRAPARE Score: 3 Problems Problem Type SNOMED Code ICD Code Onset Dates Problem Status W/U Status Risk Notes Problem 429461052 Cervical high risk human papillomavirus (HPV) DNA test positive (R87.810) Active confirmed Problem Depression screening (464255121) Screening for depression (Z13.31) Active confirmed Description:Dep r ession screen Problem History of abnormal cervical Papanicolaou smear (711576118) History of abnormal cervical Pap smear (Z87.42) Active confirmed Comment:pt had recurrent cervical dysplasia, underwent cone/leep in 2009, path negative, 2012 pap asc-h, pt underwent CO2 laser treatment of cervix and vagina, follow up pap ascus, last pap 01/2013 negative, done by dr anglin, follow up pap ascus, neg hpv Had a Pap 2020, ASCUS positive HR HPV, colposcopy consistent with atypia, no dysplasia, ECC negative. - A repeat Pap with cotesting HPV was done today as per recommendation. Problem Menopausal hot flushes (034386764) Menopausal hot flushes (N95.1) Active confirmed Comment:discusse d options of hrt, ssri, gabapentin, pt declines will try herbal supplementation for now, Problem Atypical squamous cells of uncertain significance, probably benign (morphologic abnormality) (542955230) ASCUS favor benign (796.9) Active confirmed Comment:lucille t pap in 6 months,Story:hpv neg, Problem Abnormal mammogram (024802937) Abnormal mammogram (R92.8) Active confirmed Comment:2 new circumscribed lesions seen in upper right breast, recommended diagnostic right mammo, and right breast US, Problem Vaginal dryness (20528960) Vaginal dryness, menopausal (N95.1) Active confirmed Comment:pt to use coconut oil, replens, Problem Atypical squamous cells of undetermined significance on cervical Papanicolaou smear (634375250) ASCUS with positive high risk HPV cervical (R87.610) Active confirmed Comment:- Patient here to discuss colposcopy results. - Reviewed colposcopy results and pathology findings. Colposcopy was negative for dysplasia and the three cervical biopsies were negative for dysplasia, ans so was ECC, also negative. - Recommended repeat Pap with cotesting in 1 years - All patients questions were answered., Problem Routine gynecologic examination (858498696) Encounter for annual routine gynecological examination (Z01.419) Active confirmed Problem Vaginal dryness (77991383) Vaginal dryness (N89.8) Active confirmed Asymptomatic at the present time as patient is not currently sexually active. 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 Will try to obtain records. Patient then had a period of normal Paps with negative HPV until most recently where Pap was unsatisfactory with Positive HPV. Pap report requested from previous Sports Intern. - Will call patient with results and manage accordingly., Vital Signs Heart Rate 76 /min 02/29/2024 Laura Lunsford 02/29/2024 09:32:02 AM EDT > Temperature 97.8 degrees Fahrenheit 02/29/2024 Phylicia Blanco 02/29/2024 09:32:02 AM EDT > Respiratory Rate 18 /min 02/29/2024 Peace Lunsford ienne 02/29/2024 09:32:02 AM EDT > Height-cm 162.56 cm 02/29/2024 Lunsford Laura eleanor 02/29/2024 09:32:02 AM EDT > Oximetry 99 % 02/29/2024 Laura Lunsford 02/29/2024 09:32:02 AM EDT > Blood pressure diastolic 80 mm Hg [facility] 09:32:02 AM EDT > Weight-kg 65.36 kg 02/29/2024 Laura Lunsford 02/29/2024 09:32:02 AM EDT > Height 64.00 in 02/29/2024 Laura Lunsford eleanor 02/29/2024 09:32:02 AM EDT > Blood pressure systolic 147 mm Hg 02/29/2024 Phylicia Blanco 02/29/2024 09:32:02 AM EDT > Weight 144.1 lbs 02/29/2024 Laura Lunsford eleanor 02/29/2024 09:32:02 AM EDT > BMI 24.73 kg/m2 02/29/2024 Laura Lunsford eleanor 02/29/2024 09:32:02 AM EDT > Encounters Encounter Location Date Provider Diagnosis Main [address] [place] [id number] 02/29/2024 Jennifer Sumner Screening for cerv ical cancer Z12.4 ; Well woman exam with routine gynecological exam Z01.419 ; Encounter for screening mammogram for malignant neoplasm of breast Z12.31 and Cervical high risk human papillomavirus (HPV) DNA test positive R87.810 [place] [address] [place] [address] 03/05/2024 Jennifer Sumner ASCUS with positive high risk HPV cervical R87.610 Assessments Encounter Date Diagnosis (ICD Code) Assessment Notes Treatment Notes Treatment Clinical Notes Section Notes 02/29/2024 Well woman exam with routine gynecological exam (ICD-10 - Z01.419) 02/29/2024 Screening for cervical cancer (ICD-10 - Z12.4) 03/05/2024 ASCUS with positive high risk HPV cervical (ICD-10 - R87.610) Comment:- Patient here to discuss colposcopy results. - Reviewed colposcopy results and pathology findings. Colposcopy was negative for dysplasia and the three cervical biopsies were negative for dysplasia, ans so was ECC, also negative. - Recommended repeat Pap with cotesting in 1 years - All patients questions were answered., 02/29/2024 Encounter for screening mammogram for malignant neoplasm of breast (ICD-10 - Z12.31) 02/29/2024 Cervical high risk human papillomavirus (HPV) DNA test positive (ICD-10 - R87.810) Plan Of Treatment Pending Test Test Name Order Date ThinPrep Pap Test, Image-Guided (27901) 02/03/2015 Insurance Providers Payer Name Payer Address Payer Phone Subscriber Number Group Number Insured Name Patient Relationship to Insured Coverage Start Date Coverage End Date [employer] Medicare [address] [address] [place] [address] [id number] [place] Ros[place] Anastasia Self - patient is the insured 3 [facility] [address] [address] [place] [phone] [id number] Anastasia Ponce Self - patient is the insured 3 3 Medical (General) History Medical History History ICD Code Anxiety Arthritis Cervical dysplasia Herpes Zoster HYPERTENSION Osteoporosis Surgical History Surgery Date(Month/Year) CO2 laser of cervix and vagi na 01/17/2012, COMMENTS: follow up pap 01/2012 ascus Endometrial biopsy (2) LEEP, COMMENTS: for recurrent cervical d ysplasia, path negative 2009 Breast Biopsy, COMMENTS: 2003, 2004, 200 5 and 2009 Cataract Extraction (R) 2009-02-26 Left hip replacement 2017-05-02 Colposcopy 2020-10-21
--- OUTSIDE RECORDS SUMMARY | 2024-11-08 12:46 | XMS_ITS | Encounter Summary ---
Author Organization [facility] Address [address] [place] [address] Care Team Providers Care Director Of Customer Service Name Role Phone Rodney Hernandez MD Primary Care Provider [phone] Encounter Details Date Type Department Care Team (Latest Contact Info) Description 11/07/2024 Travel Social History Tobacco Use Types Packs/Day Years [...] on file documented as of this encounter Plan of Treatment Upcoming Encounters Date Type Department Care Team (Late st Contact Info) Description 11/21/2024 10:35 AM EDT Office Visit [facility] [address] [place] [address] Renata Mustafa MD [address] [place] [address] 04/02/2025 9:10 AM EST Office Visit [facility] [address] [place] [address] Mahi Saba, DYE RANGE FEEDER-EDGE POLISHER [address] [place] [address] documented as of this encounter Visit Diagnoses Not on filedocumented in this encounter Care Teams Director Of Customer Service Relationship Specialty Start Date End Date Rodney Hernandez MD [address] [place] [phone] PCP - General Family Medicine 10/13/22 documented as of this encounter
--- OUTSIDE RECORDS SUMMARY | 2024-11-08 12:46 | XMS_ITS | Encounter Summary ---
Author Organization [facility] Address [address] [place] [address] Care Team Providers Care Icing Mixer Name Role Phone Rodney Hernandez MD Primary Care Provider [phone] Encounter Details Date Type Department Care Team (Late Contact Info) Description 09/27/2024 Results Follow-Up [facility] [address] [facility] [address] [place] [address] Mahi Saba APRN-KYLE [address] [facility] [address] [facility] [address] [facility] [address] [place] [address] Social History Tobacco Use Types Packs/Day Years [...] [facility] [address] [facility] [address] [place] [address] Renata Mustafa MD [address] [facility] [address] [facility] [address] [place] [address] 04/02/2025 9:10 AM EST Office Visit [facility] [address] [facility] [address] [place] [address] Mahi Saba APRN-[employer] [address] [facility] [address] [place] [address] documented as of this encounter Visit Diagnoses Not on filedocumented in this encounter Care Teams Icing Mixer Relationship Specialty Start Date End Date Rodney Hernadnez MD [address] [facility] [place] [address] PCP - General Family Medicine 10/13/22 documented as of this encounter
--- OUTSIDE RECORDS SUMMARY | 2024-11-08 12:46 | XMS_ITS | Encounter Summary ---
Author Organization [employer] Address [id number] [address] [place] [address] Care Team Providers Care Auto Machinist Name Role Phone Rodney Hernandez MD Primary Care Provider [phone] Encounter Details Date Type Department Care Team (Late st Contact Info) Description 07/18/2017 Telephone [facility] [address] [place] [id number] Phyllis Sotomayor, A Social History Tobacco Use Types Packs/Day Years Used Date Smoking Tobacco: Never Smokeless Tobacco: Never Alcohol Use Standard Drinks/Week Comments No 0 (1 standard drink = 0.6 oz pur e alcohol) Comments No Sex and Gender Information Value Date Recorded Sex Assigned at Not on file Legal Sex Female 1:04 PM EST Gender Identity Not on file Sexual Orientation Not on file documented as of this encounter Plan of Treatment Not on file documented as of this encounter Goals Goal Patient Goal Type Associated Problems Recent Progress Patient-Stated? Author Improve mobility General Yes Patricia Page, RN Note: Evaluation of progress towards goal: Maximize work with PT at discharge to strengthen L hip documented as of this encounter Visit Diagnoses Not on filedocumented in this encounter Care Teams Auto Machinist Relationship Specialty Start Date End Date Rodney Hernandez MD PCP - General 04/05/17 documented as of this encounter
== END 2024-11-08 12:40 | disposition home or self-care (01) ==
PROVIDERS: PCP Family Medicine; Visit Provider Family Medicine
DX: M23.91 Unspecified internal derangement of right knee (principal); M85.861 Other specified disorders of bone density and structure, right lower leg; M17.11 Unilateral primary osteoarthritis, right knee
CPT/HCPCS: 73562

== ENCOUNTER 2024-11-27 09:50 | Outpatient (RCR) | payer MEDICARE, SELFPAY | END 2024-12-13 08:20 | disposition home or self-care (01) | LOC: PT 09:50 | PROVIDERS: PCP Family Medicine; Visit Provider Family Medicine | DX: M25.561 Pain in right knee (principal); M79.661 Pain in right lower leg | CPT/HCPCS: 97014; 97035; 97110; 97140; 97161 ==

== ENCOUNTER 2024-12-11 08:43 | Outpatient (OUT) | payer MEDICARE, SELFPAY ==
--- OUTSIDE RECORDS SUMMARY | 2024-01-03 04:45 | XMS_ITS ---
Author Organization [facility] vices Address [address] [place], [place] [id number] Care Team Providers Care Design Center Consultant Name Role Phone Jennifer Sumner [phone] REASON FOR VISIT Pap Test Social History Sex Assigned At : Social History Observation Description Sex Assigned At Female Encounters Encounter Location Date Provider Diagnosis [facility] [address] [place] [address] 01/03/2024 Jennifer Sumner Plan Of Treatment No Information Progress Notes * Anastasia PONCE LDOB:1945 (78 yo F)Acc No.[id number]:01/03/2024 Medical Note Patient: Anastasia DELAROSA Provider: Esteban Sumner :1945 A ge:78 Y S ex:Female Date:01/03/2024 Address:[address] [place], [place] [id number] Subjective: * Chief Complaints: * 1 . Pap Test. * Medical History: Objective: * Vitals: Assessment: Plan: * Treatment: * Billing Information: * Visit Code: * Procedure Codes: * Electronic signature of SINAI Chou on 12/11/2024 at 08:45 AM EDT Sign off status: Pending * Provider: Esteban Sumner Date: 0 01/03/2024 Generated for Mireya vasquez/Ryder/eTransmmanuelito on: 12/11/2024 08:45 AM EDT
--- OUTSIDE RECORDS SUMMARY | 2024-11-09 10:36 | XMS_ITS ---
Author Organization [facility] [place] Address [address] [place] [address] Care Team Providers Care Ordnance Artificer Helper Name Role Phone Rip Hernandez Primary Care Provider REASON FOR VISIT right leg Medications Medication SIG (Take, Route, Fr equency, Duration) Notes Start Date End Date Status traMADol HCl 50 MG 1 tablet as needed Orally tid for 7 days M23.90 11/09/2024 Active Encounters Encounter Location Date Provider Diagnosis [facility] [address] [place] [address] 11/09/2024 Rip Hernandez Plan Of Treatment Medication Medication Name Sig Start Date Stop Date Notes traMADol HCl 50 MG 1 tablet as needed O rally tid for 7 days 11/09/2024 Next Appt Details Provider Name:Diego Carter, 02/12/2025 09:00:00 AM, [address] [place], [address], Progress Notes * TAE Anastasia LDOB:1945 (78 yo F)Acc No.[id number]:11/09/2024 Patient: Anastasia DELAROSA :1945 A ge:78 Y S ex:Female Address:[address] [place] [phone] * Refills Start traMADol HCl Tablet, 50 MG, Orally, 21 Tablet, 1 tablet as needed, tid, 7 days * true * Date: Generated for Mireya vasquez/Ryder/eTransmitting on: 0 12/11/2024 08:45 AM EDT
--- OUTSIDE RECORDS SUMMARY | 2024-11-09 11:56 | XMS_ITS ---
Author Organization [facility] [place] Address [address] [place] [address] Care Team Providers Care Copy Clerk Name Role Phone Rip Hernandez Primary Care Provider REASON FOR VISIT resend tramadol to correct pharmacy Medications Medication SIG (Take, Route, Fr equency, Duration) Notes Start Date End Date Status traMADol HCl 50 MG 1 tablet as needed O rally tid for 7 days 11/09/2024 Active Encounters Encounter Location Date Provider Diagnosis [facility] [address] [place] [address] 11/09/2024 Rip Hernandez Plan Of Treatment Medication Medication Name Sig Start Date Stop Date Notes traMADol HCl 50 MG 1 tablet as needed O rally tid for 7 days 11/09/2024 Next Appt Details Provider Name:Diego Carter, 02/12/2025 09:00:00 AM, [address] [place], [address], Progress Notes * ROSARIO Anastasia LDOB:1945 (78 yo F)Acc No.[id number]:11/09/2024 Patient: Anastasia DELAROSA Joseph :1945 A ge:78 Y S ex:Female Address:[address] [place] [address] * Refills Refill traMADol HCl Tablet, 50 MG, Orally, 21 Tablet, 1 tablet as needed, tid, 7 days * true * Date: Generated for Mireya vasquez/Ryder/eTransmitting on: 0 12/11/2024 08:48 AM EDT
--- OUTSIDE RECORDS SUMMARY | 2024-11-21 11:54 | XMS_ITS ---
Author Organization [facility] [place] Address [address] [place] [address] Care Team Providers Care Food Service Attendant Name Role Phone Rip Hernandez Primary Care Provider Reason For Referral Diagnosis 1 Right knee pain (M25 .561) Referral Organization [facility] Referring Provider First Name Rip Referring Provider Last Name Mary Referring Provider Speciality Family Med icine Referred Provider [facility], Physical Therap y Referred Provider Specialty Physical The rapist Referral Priority Routine REASON FOR VISIT PT- Encounters Encounter Location Date Provider Diagnosis [facility] [address] [place] [address] 11/21/2024 Rip Hotri Right knee pain M25.561 Assessments Encounter Date Diagnosis (ICD Code) Assessment Notes Treatment Notes Treatment Clinical Notes Section Notes 11/21/2024 Right knee pain (ICD-10 - M25.561) Plan Of Treatment Referrals Referral Date Details 11/21/2024 11/21/2024, Physical Therapy [facility] Next Appt Details Provider Name:Diego Carter, 02/12/2025 09:00:00 AM, [address] [place], [address], Progress Notes * TAEKamilahy LDOB:1945 (78 yo F)Acc No.[id number]:11/21/2024 Patient: Anastasia DELAROSA :1945 A ge:78 Y S ex:Female Address:[address] [place] [phone] Subjective: * Chief Complaints: * P T- * Medical History: * Surgical History: * Hospitalization/Major Diagno stic Procedure: * Medications: Objective: * Vitals: * Physical Examination: Assessment: * Assessment: 1. R ight knee pain - M25.561 (Primary) Plan: * Treatment: * Procedure Codes: * true * Date: Generated for Maui christina/Ryder/eTransmitting on: 0 12/11/2024 08:46 AM EDT Consultation Request Notes Referral Date Referring Provider Referred Provider Not 11/21/2024 Rip Hernandez [facility], Physical Therapy
--- OUTSIDE RECORDS SUMMARY | 2024-12-11 08:45 | XMS_ITS | Clinical Summary ---
Author Organization [employer] Address [id number] [address] [place] [address] Care Team Providers Care After School Teacher Name Role Phone Rodney Hernandez MD Primary Care Provider [phone] Allergies No known active allergies Medications lisinopril [...] L hip Medical Devices Implanted Type Area Dust Collector Ore Crushing Device Identifier Shelf Expiration Date Model / Serial / Lot Shl Actb 50mm Hip 3 Hl Fin Pps - [id number] Implanted:Qty : 1 on 07/13/2017 by Arnoldo Terrazas MD at [facility] Orthopedic Implant Left: Hip [employer] 05/09/2027 [id number] / / [id number] Linr Actb G7 Ntrl E1 36mm D - [id number] Implanted:Qty : 1 on 07/13/2017 by Arnoldo Terrazas MD at [facility] Orthopedic Implant Left: Hip [employer] 03/01/2022 [id number] / / [id number] Hd Fem 36mm Opt Shl Actb G7 Bl Rpl 650-1057 - [id number] Implanted:Qty : 1 on 07/13/2017 by Arnoldo Terrazas MD at [facility] Orthopedic Implant Left: Hip [employer] 11/19/2026 [id number] / / [id number] Stm Fem 107.5mm 133d 11 Hi Os - [id number] Implanted:Qty : 1 on 07/13/2017 by Arnoldo Terrazas MD at [facility] Orthopedic Implant Left: Hip [employer] 02/14/2027 [id number] / / [id number] Slv Fem Opt -6mm Tpr Hip Blx D Rpl 650-9507 - [id number] Implanted:Qty : 1 on 07/13/2017 by Arnoldo Terrazas MD at [facility] Orthopedic Implant Left: Hip [employer] 04/08/2027 [id number] / / [id number] Insurance [facility] MED[facility] Advance Directives * Full Code (Latest Code Status on File) Date Activated Date Inactivated Comments 07/13/2017 11:50 AM 07/14/2017 4:05 PM Care Teams After School Teacher Relationship Specialty Start Date End Date Rodney Hernandez MD PCP - General 04/05/17
--- OUTSIDE RECORDS SUMMARY | 2024-12-11 08:46 | XMS_ITS | Patient Health Record ---
Author Organization [facility] [place] Address [address] [place] [address] Care Team Providers Care Polytechnic Teacher Name Role Phone Rip Aguirre Primary Care Provider Diego Carter Unavailable [phone] Allergies No Known Allergies Results Component Value Reference Range Notes XR KNEE RT 3V Reviewed date:11/08/2024 06:39:19 PM Interpretation: Performing Lab: Notes/Report: Source Facility: [place] [address] XRay Report Signed Patient: ANASTASIA PONCE MR#: [id number] : 1945 Acct:[id number] Age/Sex: 78 / F ADM Date: 11/08/24 Loc: RAD Attending Dr: Dorcas Aguirre M.D. Ordering Physician: Dorcas Aguirre M.D. Date of Service: 11/08/24 Procedure(s): XR knee RT 3V Accession Number(s): [id number] cc: Dorcas Aguirre M.D. [place] [address] Patient Name: ANASTASIA PONCE MRN: [id number] date: 1945 Sex: F Assigned Patient Location: RAD Current Patient Location: RAD Accession/Order Number: [id number] Exam Date: 11/08/2024 13:13 Report Date: 11/08/2024 13:15 At the request of: DORCAS AGUIRRE MD Procedure: XR knee RT 3V RIGHT KNEE - 3 views COMPARISON: None CLINICAL DATA: Right knee pain for the past few months, without specific injury. AP, lateral and internal oblique views were obtained. There is osteopenia. A bone island is visualized at the proximal fibula. No acute fractures or dislocation are identified. There is no disproportionate joint space narrowing. There is minor marginal spurring, greatest at the posterior patella. Potential subchondral lucency is seen at the patellar facets on the lateral view. There is no effusion or soft tissue swelling. XR/XR knee RT 3V IMPRESSION: OSTEOPENIA AND MILD DEGENERATIVE CHANGE, GREATEST AT THE PATELLA. Impression dictated by: Genny Talbot M.D. 11/08/2024 1:15 PM Dictation Location: [place] [address] Electronically authenticated by: [id number] Y Date: 11/08/2024 13:15 Dictated By: Genny Talbot M.D. Signed By: 11/08/241317 DD/ 14 TD/TT: Burglary Investigator: [place] [address] XRay Report Signed Patient: ANASTASIA PONCE MR#: [id number] : 1945 Acct:[id number] Age/Sex: 78 / F ADM Date: 11/08/24 Loc: [facility] Attending Dr: Argelia Aguirre M.D. Ordering Physician: Dorcas Aguirre M.D. Date of Service: 11/08/24 Procedure(s): XR kne e RT 3V Accession Number(s): [id number] cc: Dorcas Aguirre M.D. [place] [address] Patient Name: ANASTASIA PONCE MRN: [id number] date: 1945 Sex: F Assigned Patient Location: [facility] Current Patient Location: [facility] Accession/Order Numb er: [id number] Exam Date: 11/08/2024 13:13 Report Date: 11/08/2024 13:15 At the request of: DORCAS AGUIRRE MD Procedure: XR knee RT 3V RIGHT KNEE - 3 views COMPARISON: None CLINICAL DATA: Right knee pain for the past few months, without specific injury. AP, lateral and inte rnal oblique views were obtained. There is osteopenia. A bone island is visualized at the proximal fibula. No acute fractures or dislocation are identified. There is no disproportionate joint space narrowing. There is minor marginal spurring, greatest at the posterior patella. Potential subchondral lucency is seen at the patellar facets on the lateral view. There is no effusion or soft tissue swelling. X R/XR knee RT 3V IMPRESSION: OSTEOPENIA AND MILD DEGENERATIVE CHANGE, GREATEST AT THE PATELLA. Impression dictated by: Genny Talbot M.D. 11/08/2024 1:15 PM Dictation Location: [place] [address] Electronically authenticated by: [id number] Y Date: 11/08/2024 13:15 Dictated By: Genny Talbot M.D. Signed By: 11/08/24 1318 DD/ 131 TD/TT: Burglary Investigator: FREE T3 Reviewed date:03/20/2024 08:08:43 PM Interpretation: Performing Lab: Notes/Report: [facility] , Free T3 2.96 2.18-3.98 pg/mL Performing Lab: see note ML - [facility] LB T4 Reviewed date:03/20/2024 08:08:43 PM Interpretation: Performing Lab: Notes/Report: [facility] , T4 Thyroxine 9.70 4.80-13.90 ug/dL Performing Lab: see note ML - [facility] LB TSH Reviewed date:03/20/2024 08:08:43 PM Interpretation: Performing Lab: Notes/Report: [facility] , Thyroid Stimulating Hormone 0.200 0.358-3.740 uIU/mL Performing Lab: see note ML - [facility] LB CBC AUTO DIFF Reviewed date:04/17/2024 12:17:13 PM Interpretation: Performing Lab: Notes/Report: [facility] , White Blood Count 5.3 4.0-11.0 10 [...] 0.00-0.03 10 3/uL Performing Lab: see note ML - [facility] FREE T3 Reviewed date:04/17/2024 12:35:21 PM Interpretation: Performing Lab: Notes/Report: [facility] , Free T3 1.72 2.18-3.98 pg/mL Performing Lab: see note ML - [facility] LB GLYCOHEMOGLOBIN A1C Reviewed date:04/17/2024 12:35:21 PM Interpretation: Performing Lab: Notes/Report: [facility] , Glycohemoglobin A1C 5.7 4.5-6.2 % > 7.0 ADA THERAPEUTIC TARGET < 7.0 ACTION SUGGESTED ADA RECOMMENDED LIMIT 4.0 - 6.0 Estimated Average Glucose 117 Performing Lab: see note ML - [facility] LB IRON Reviewed date:04/17/2024 12:23:08 PM Interpretation: Performing Lab: Notes/Report: [facility] , Iron 71.0 50.0-170.0 ug/dL Performing Lab: see note ML - [facility] LB LIPID PROFILE Reviewed date:04/17/2024 12:35:21 PM Interpretation: Performing Lab: Notes/Report: [facility] , Triglycerides 87 <=150 mg/dL Cholesterol 203 <=200 mg/dL HDL Cholesterol 82 40-60 mg/dL > or =60 mg/dl - LOW CARDIOVASCULAR RISK <40 mg/dl - HIGH CARDIOVASCULAR RISK LDL Cholesterol Calculated 104.0 130-159 mg/dl BORDERLINE HIGH >190 mg/dl VERY HIGH <100 mg/dl OPTIMAL 160-189 mg/dl HIGH 100-129 mg/dl NEAR OR ABOVE OPTIMAL VLDL CHOLESTEROL 17.4 Chol HDL Ratio 2.5 7.1 - 11.0 MODERATE RISK >11.0 HIGH RISK 3.3 - 4.4 LOW RISK 4.4 - 7.1 AVERAGE RISK Performing Lab: see note - [facility] PROF 14(COMP METB) Reviewed date:04/17/2024 12:35:21 PM Interpretation: Performing Lab: Notes/Report: [facility] , Sodium 142 136-145 mmol/L Potassium 4.4 [...] Globulin Ratio 1.1 Performing Lab: see note - [facility] LB T4 Reviewed date:04/17/2024 12:35:21 PM Interpretation: Performing Lab: Notes/Report: [facility] , T4 Thyroxine 7.40 4.80-13.90 ug/dL Performing Lab: see note ML - [facility] LB TSH Reviewed date:04/17/2024 12:35:21 PM Interpretation: Performing Lab: Notes/Report: [facility] , Thyroid Stimulating Hormone 0.374 0.358-3.740 uIU/mL Performing Lab: see note ML - [facility] LB MM tomosynthesis screening B I Reviewed date:04/17/2024 04:05:08 PM Interpretation: Performing Lab: Notes/Report: Source Facility: [place] [address] [place] [address] Mammography Report Signed Patient: ANASTASIA PONCE MR#: [id number] : 1945 Acct:[id number] Age/Sex: 78 / F ADM Date: 04/17/24 Loc: MAMMO Attending Dr: Jennifer Sumner TOBACCO CLASSER Ordering Physician: Jennifer Sumner NP Results: Date of Service: 04/17/24 Follow Up: Procedure(s): MM tomosynthesis screening BI Accession Number(s): [id number] cc: Dorcas Aguirre M.D.; Jennifer Sumner NP Patient Name: ANASTASIA PONCE MR#: [id number] : 1945 Exam Date: 04/17/2024 Ordering Doctor: [...] None Family Cancers None LOCATION: [facility] BREAST COMPOSITION: The breasts are heterogeneously dense,which [...] Signed By: 04/17/24 1256 DD/ 1255 TD/TT: Burglary Investigator: [place] [address] Mammography Report Signed Patient: ANASTASIA PONCE MR#: [id number] : 1945 Acct:[id number] Age/Sex: 78 / F ADM Date: 04/17/24 Loc: MAMMO Attending Dr: Jennifer Sumner NP Ordering Physician: Jennifer Sumner NP Results: Date of Service: 04/17/24 Follow Up: Procedure(s): MM tomosynthesis screening BI Accession Number(s): [id number] cc: Dorcas Aguirre M.D. ; Jennifer Sumner NP Patient Name: ANASTASIA PONCE MR#: [id number] : 1945 Exam Date: 04/17/2024 Ordering Doctor: [...] Treatments None Family Cancers None LOCATION: [facility] BREAST COMPOSITION: The breasts are heterogeneously dense,which [...] LUMP SHOULD BE BIOPSIED. Dictated by: Damaso cochran MD on 04/17/2024 at 12:53 Approved by: Damaso cochran MD on 04/17/2024 at 12:55 Dictated By: Joon Nice M.D. Signed By: 04/17/24 1256 DD/ 1255 TD/TT: Burglary Investigator: VITAMIN D 25 [place] Reviewed date:04/17/2024 12:54:53 PM Interpretation: Performing Lab: Notes/Report: [facility] , Vitamin D 67.8 30-100 ng/mL Vit D sufficient <20 ng/mL Vit D deficient >100 ng/mL Potential Toxicity 20-<30 ng/mL Vit D insufficient Performing Lab: see note ML - [facility] LB Reason For Referral Diagnosis 1 Right knee pain (M25 .561) Referral Organization [facility] Referring Provider First Name Rip Referring Provider Last Name Mary Referring Provider Speciality Family Med icine Referred Provider [facility], Physical Therap y Referred Provider Specialty Physical The rapist Referral Priority Routine Medications Medication SIG (Take, Route, Frequency, Duration) Notes Start Date End Date Status Lisinopril 20 MG Take 1 tablet by gerri th once daily for 90 Active Simvastatin 20 MG TAKE 1 TABLET BY GERRI TH ONCE DAILY IN THE EVENING for 90 Active Synthroid 75 MCG TAKE 1 TABLET BY GERRI TH EVERY MORNING ON AN EMPTY STOMACH for 90 Active Protonix 40 MG 1 tablet Orally Once a day for 90 days 04/17/2024 Active traMADol HCl 50 MG 1 tablet as needed Orally tid for 7 days 11/09/2024 Active Semaglutide MED [facility] Active Cytomel 5 MCG 1 tablet on [...] DAILY FOR 14 DAYS for 14 Active Immunizations Vaccine Route Administration Date Status Comme nts Flu, Fluad (31605) 65 yrs+, single-dose syringe (0756-8244) Unknown 03/17/2022 Administered Flu, Fluad (28431) 65 yrs+, single-dose syringe (2921-1950) Unknown 05/18/2023 Administered Pneumococcal (Pneumovax 23) Unknown [...] Status Risk Notes Problem Exercise induced bronchospasm (757117576) 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 Problem Postnasal drip (00093346) Postnasal drip (R09.82) Active confirmed Problem Hypertension (51456532) Hypertension (I10) Active confirmed Problem Asthma (202462039) Asthma (J45.909) Active confirmed Problem Gastroesophageal reflux disease (496651581) GERD (gastroesophage al reflux disease) (K21.9) Active confirmed Problem Hypothyroid (21075729) Hypothyroid (E03.9) Active confirmed Problem Arthritis (0236393) Arthritis (M19.90) Active confirmed Problem Osteopenia (777232876) Osteopenia (M85.80) Active confirmed Problem Derangement of knee (99948375) Knee internal derangement, 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) Active confirmed Vital Signs Heart Rate 78 /min 02/08/2024 Temperature 96 degrees Fahrenheit 02/08/2024 Respiratory Rate 18 /min 02/08/2024 Oximetry 96 % 02/08/2024 Blood pressure diastolic 90 mm Hg 11/08/2024 Height 64 in 11/08/2024 Blood pressure systolic 134 mm Hg 11/08/2024 Weight 134.2 lbs 11/08/2024 BMI 23.03 kg/m2 11/08/2024 Encounters Encounter Location Date Provider Diagnosis [facility] [address] [place] [address] 02/08/2024 Diego Carter Exercise induced bronchospasm J45.990 and Postnasal drip R09.82 [facility] [address] [place] [address] 04/17/2024 Rip Hoy Hypothyroid E03.9 ; Arthritis M19.90 ; Hypertension I10 ; Osteopenia M85.80 and GERD (gastroesophageal reflux disease) K21.9 [facility] [address] [place] [address] 11/08/2024 Rip Hoy Knee internal derangement, unspecified laterality M23.90 [facility] [address] [place] [address] 01/16/2024 Diego Carter [facility] [address] [place] [address] 02/08/2024 Rip Hoy Hypothyroid E03.9 [facility] [address] [place] [address] 03/07/2024 Rip Hoy [facility] [address] [place] [address] 03/20/2024 Rip Hoy [facility] [address] [place] [address] 04/17/2024 Rip Hoy Hypothyroid E03.9 [facility] [address] [place] [address] 04/17/2024 Rip Rhoadesy [facility] [address] [place] [address] 04/18/2024 Rip Hoy [facility] [address] [place] [address] 04/18/2024 Rip Aguirre [facility] [address] [facility] [place] [address] 05/28/2024 Rip Aguirre [facility] [address] [facility] [place] [address] 06/18/2024 Rip Aguirre [facility] [address] [facility] [place] [address] 07/25/2024 Rip Aguirre Hypothyroid E03.9 [facility] [address] [facility] [place] [address] 08/22/2024 Rip Aguirre [facility] [address] [facility] [place] [address] 09/13/2024 Rip Aguirre [facility] [address] [facility] [place] [address] 11/08/2024 Rip Aguirre [facility] [address] [facility] [place] [address] 11/09/2024 Rip tri [facility] [address] [facility] [place] [address] 11/09/2024 Rip Aguirre [facility] [address] [facility] [place] [address] 11/21/2024 Rip Aguirre Right knee pain M25.561 Assessments Encounter Date Diagnosis (ICD Code) Assessment Notes Treatment Notes Treatment Clinical Notes Section Notes 02/08/2024 Exercise induced bronchospasm (ICD-10 - J45.990) [...] sent into her pharmacy. Follow-up 1 year. 11/08/2024 Knee internal derangement, unspecified laterality (ICD-10 - M23.90) 02/08/2024 Hypothyroid (ICD-10 - E03.9) 04/17/2024 Hypothyroid (ICD-10 - E03.9) 07/25/2024 Hypothyroid (ICD-10 - E03.9) 11/21/2024 Right knee pain (ICD-10 - M25.561) 04/17/2024 Hypothyroid (ICD-10 - E03.9) 04/17/2024 Arthritis (ICD-10 - M19.90) 02/08/2024 Postnasal drip (ICD-10 - R09.82) She [...] 08/01/2023 MRI KNEE RT WO CON 11/08/2024 THYROID PANEL (T4/TSH/FREE T3) 4 THYROID PANEL (T4/TSH/FREE T3) 3 THYROID PANEL (T4/TSH/FREE T3) 4 THYROID PANEL (T4/TSH/FREE T3) 4 Next Appt Details Provider Name:Diego Carter, 02/12/2025 09:00:00 AM, [address] [place], [address], Insurance Providers Payer Name Payer Address Payer Phone Subscriber Number Group Number Insured Name Patient Relationship to Insured Coverage Start Date Coverage End Date [employer] MEDICARE [address] [place], [place] [phone] [id number] Anastasia Ponce Self - patient is the [...]
--- OUTSIDE RECORDS SUMMARY | 2024-12-11 08:46 | XMS_ITS | Clinical Summary ---
Author Organization [facility] Healthcare Address [address] [place] [address] Care Team Providers Care Technical Assoc Name Role Phone Rodney Hernandez MD Primary Care Provider [phone] Allergies No known active allergies Medications Acetaminophen [...] Encounters Date Type Department Care Team Description 11/21/2024 10:35 AM EDT [facility] [address] [place] [address] Renata Mustafa MD Encounter for removal of sutures (Primary Dx) 11/21/2024 Bamboo flowsheet [facility] [place] [facility] [address] [place] [address] Renata Mustafa MD 11/21/2024 Travel 11/12/2024 Results Follow-Up [facility] [place] [facility] [address] [place] [address] Renata Mustafa MD 11/07/2024 10:30 AM EDT Office Visit [facility] [place] [facility] [address] [place] [address] Renata Mustafa MD Basal cell carcinoma (BCC) of skin of other part of torso (Primary Dx) 11/07/2024 Travel 09/27/2024 Results Follow-Up [facility] [address] [place] [address] Mahi Saba APRN-CNP 09/19/2024 8:30 AM EDT Office [facility] [address] [place] [address] Mahi Saba, HOURLY SALES STAFF-FIBROUS WALLBOARD INSPECTOR Seborrheic keratosis (Primary Dx); Lentigines; Actinic keratosis; History of SCC (squamous cell carcinoma) of skin; Neoplasm of unspecified behavior of bone, soft tissue, and skin 09/19/2024 Bamboo flowsheet [facility] [address] [place] [address] Mahi Saba APRN-CNP 09/19/2024 Travel from Last 3 Months Family [...] Care Team (Late st Contact Info) Description 04/02/2025 9:10 AM EST Office Visit [facility] [place] [facility] [address] [facility] [facility] [address] [facility] [address] [place] [address] Mahi Saba APRN-KYLE [address] [facility] [address] [place] [address] Health Maintenance Due Date Last Done Comments [...] of skin of other part of torso DERMATOPATHOLOGY EXAM Routine 11/07/2024 12:00 AM EDT Basal cell carcinoma (BCC) of [...] * Skin repair (11/07/2024 10:20 AM EDT) Narrative Gaye Angulo MA - 11/07/2024 10:20 AM EDT Complexity: [...] DERM PROCEDURE ORDERABLES Fin al Result * Dermatopathology exam (11/07/2024 12:00 AM EDT) SPECIMEN TYPE --- SPECIMEN: RIGHT BREAST --- [facility] ICD10 Code C44.511 [facility] PROTOCOL EXC - EXCISION [facility] Final Diagnosis WOUND REPAIR REACTION WITH STROMAL INFLAMMATION-NA RROWLY EXCISED. COMMENT: This material was reviewed with 25-27105 B, which shows a superficial multicentric basal cell carcinoma. Scarring is focally present near the deep inked margin. Monitoring of this site is suggested. [email or web address] Gross Text 0.4x0.4cm scar 0.4cm from margin 2 blocks (tips in 1) (4 in 2) (jeremy/enio) (11/09/24) [facility] Microscopic Description Microscopic examination performed. [facility] CPT 15247*1 [facility] Skin Topography unknown / Unknown 11/07/2024 10:20 AM EDT Comment:Diagnosis: BCC Check Margins: Yes Previous accession number: [id number] us Renata Mustafa MD LAB PATHOLOGY ORDERABLES Sarai evangelista Result [facility] * Lesion biopsy (09/19/2024 8:29 AM EDT) Narrative Belkis Arriaga MA - 09/19/2024 8:29 AM EDT Type of [...] of lidocaine used: 0.3 cc Mahi Saba HOURLY SALES STAFF-[facility] DERM PROCEDURE ORDERAB LES Final Result * Lesion biopsy (09/19/2024 8:27 AM EDT) Narrative Belkis Arriaga MA - 09/19/2024 8:27 AM EDT Type of [...] taken Amount of lidocaine used: 0.4 cc Mahi Saba HOURLY SALES STAFF-[facility] DERM PROCEDURE ORDERAB LES Final Result * [...] Description Microscopic examination performed. [facility] CPT 86498*2 [facility] Skin (tissue) specimen (specimen) Topography unknown / Unknown 09/19/2024 8:27 AM EDT Comment:Differential Diagnos is: SCC vs AK vs ISK Check Margins: No Size of lesion: 1.0 x 1.0 cm Skin (tissue) specimen (specimen) Topography unknown / Unknown 09/19/2024 8:29 AM EDT Comment:Differential Diagnos is: BCC vs Other Check Margins: No Size of lesion: 0.8 x 0.7 cm us Mahi Saba HOURLY SALES STAFF-FIBROUS WALLBOARD INSPECTOR LAB PATHOLOGY ORDERABL ES Final Result [email or web address] from Last 3 Months Insurance [employer] MEDICARE ADVANTAGE Care Teams Technical Assoc Relationship Specialty Start Date End Date Rodney Hernandez MD [address] [place] [address] PCP - General Family Medicine 10/13/22
--- OUTSIDE RECORDS SUMMARY | 2024-12-11 08:46 | XMS_ITS | Clinical Summary ---
Author Organization [facility] Address [address] [id number] Care Team Providers Care Flight Steward Name Role Phone Rodney Hernandez MD Primary Care Provider [phone] Allergies No known active allergies Medications diclofenac [...] file MEDICARE SUPPLEMENT GENERIC PLAN Care Teams Flight Steward Relationship Specialty Start Date End Date Rodney Hernandez MD PCP - General Family Medicine 03/10/21
--- OUTSIDE RECORDS SUMMARY | 2024-12-11 08:46 | XMS_ITS | Encounter Summary ---
Author Organization [employer] [facility] [employer] Address [id number] [address] [place] [address] Care Team Providers Care Rattlesnake Farmer Name Role Phone Rodney Hernandez MD Primary Care Provider [phone] Encounter Details Date Type Department Care Team (Late st Contact Info) Description 07/18/2017 Telephone [facility] [address] [place] [address] Phyllis Sotomayor, A Social History Tobacco Use [...] on filedocumented in this encounter Care Teams Rattlesnake Farmer Relationship Specialty Start Date End Date Rodney Hernandez MD PCP - General 04/05/17 documented as of this encounter
--- OUTSIDE RECORDS SUMMARY | 2024-12-11 08:46 | XMS_ITS | Encounter Summary ---
Author Organization [facility] Address [address] [place] [address] Care Team Providers Care Assembler And Tester Electronics Name Role Phone Rodney Hernandez MD Primary Care Provider [phone] Encounter Details Date Type Department Care Team (Late Contact Info) Description 09/27/2024 Results Follow-Up [facility] [address] [facility] [address] [place] [address] Mahi Saba MARINE EQUIPMENT PRESERVATION INSPECTOR-MANAGER HOME IMPROVEMENT [address] [facility] [address] [place] [address] Social History Tobacco Use Types Packs/Day Years [...] [facility] [address] [place] [address] Mahi Saba, MARINE EQUIPMENT PRESERVATION INSPECTOR-MANAGER HOME IMPROVEMENT [address] [facility] [address] [place], [place] [phone] documented as of this encounter Visit Diagnoses Not on filedocumented in this encounter Care Teams Assembler And Tester Electronics Relationship Specialty Start Date End Date Rodney Hernandez MD [address] [place] [address] PCP - General Family Medicine 10/13/22 documented as of this encounter
--- OUTSIDE RECORDS SUMMARY | 2024-12-11 08:48 | XMS_ITS | Patient Health Record ---
Author Organization [facility] vices Address [address] [id number] Care Team Providers Care Roller Billet Mill Name Role Phone Jennifer Sumner Unavailable [phone] Allergies No Known Allergies Results Component Value [...] Test performed at [facility] [address] [place] [address] CLIA Number [id number] CAP Accreditation Number [id number] [address] [place] [address] CLIA No. [id number] CAP Accreditation No. [id number] Student Life Vice President: Peg Escobar M.D. HPV INTERPRETATION POSITIVE NEGATIVE THINPREP PAP (age 21-65) Reviewed date:03/05/2024 02:35:16 PM Interpretation: Performing Lab: Notes/Report: Atrophic changes present. SOURCE Unspecified SLIDES: 1 LMP: NOT GIVEN SPECIMEN ADEQUACY: Satisfact ory for evaluation. INTERPRETATION: SEE NOTE ASCUS/EPITH. ABNORMALITY; SEE BELOW EPITHELIAL CELL ABNORMALITY Atypical squamous cells of undetermined significance (ASC-US) MEDICAL CSR: SEE NOTE Li Pulido PATHOLOGIST INTERPRETATION BY: Maria C Quinonez LOCATION: Specimens processed and interpreted at [facility], [address] [place] [address], , CLIA: [id number] [facility] [address], [address] UNLESS OTHERWISE INDICATED, COMPUTER AIDED AND MEDICAL CSR SCREENING PERFORMED. The Pap test is a screening test with an inherent, but low probability of error. Your patient should be reminded to consult you immediately if she experiences any suspicious signs or symptoms, regardless of her Pap test result. An alternate report format containing images or consolidated prior Pap history is available as applicable. Test performed at [facility] [address] [place] [address] CLIA Number [id number] [facility] Accreditation Number [id number] UNLESS OTHERWISE INDICATED, ALL TESTING PERFORMED AT: [facility] [address] [place] [address] DIRECTOR BIOMEDICAL ENGINEERING: ERNESTO MCCLOUD M.D. CLIA NUMBER [id number] CAP ACCREDITATION AUID [id number] Changes in testing location may be associated with reference range changes for a number of analytes. Please review reference intervals carefully. Reason For Referral Reason eval and treat Diagnosis 1 ASCUS with positive high risk HPV cervical (R87.610) Referral Organization Main Referring Provider First Name Jennifer Referring Provider Last Name Burak Referring Provider Speciality Nurse Prac arcadior Referred Provider [facility] MANA[facility] Referred Provider Specialty OB - Gynecol ogy General Notes Phylicia Lunsford 08:28:10 AM >{{TOFIRSTNAME}} This is [facility] following up on [...] a day Active Montelukast Sodium 10 MG Oral; Duration: 30 Days Active Levothyroxine Sodium 75 MCG 1 tablet in the morning on an empty stomach Oral Once a day; Duration: 30 days Synthroid Active Amitriptyline HCl 50 MG 1 tablet at bedt kermit Oral Once a day; Duration: 90 days Active Diclofenac Sodium 75 MG Oral; Duration: 90 Days Active Social History Tobacco Use: [...] 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 Stress is when someone feels tense, nervous, anxious, or can't sleep at night because their mind is troubled A little bit patient entered data In the past year have you sp ent more than 2 nights in a row in a shelter, longterm, skilled nursing center, or juvenile correctional facility? No patient [...] Problem Status W/U Status Risk Notes Problem Human papilloma virus deoxyribonucleic acid test positive, high risk on vaginal specimen (532994599228778) Cervical high risk human papillomavirus (HPV) DNA test positive (R87.810) Active confirmed Problem Depression screening (343014154) Screening for depression (Z13.31) Active confirmed Description:Dep r ession screen Problem History of abnormal cervical Papanicolaou smear (661103542) History of abnormal cervical Pap smear (Z87.42) [...] as per recommendation. Problem Menopausal hot flushes (675020389) Menopausal hot flushes (N95.1) Active confirmed Comment:discusse d options of hrt, ssri, gabapentin, pt declines will try herbal supplementation for now, Problem Atypical squamous cells of uncertain significance, probably benign (morphologic abnormality) (079854137) ASCUS favor benign (796.9) Active confirmed Comment:rakela t pap in 6 months,Story:hpv neg, Problem Abnormal mammogram (396617288) Abnormal mammogram (R92.8) Active confirmed Comment:2 new circumscribed lesions seen in upper right breast, recommended diagnostic right mammo, and right breast US, Problem Vaginal dryness (27279739) Vaginal dryness, menopausal (N95.1) Active confirmed Comment:pt to use coconut oil, replens, Problem Atypical squamous cells of undetermined significance on cervical Papanicolaou smear (160931746) ASCUS with positive high risk HPV cervical (R87.610) Active confirmed Comment:- Patient here to discuss colposcopy results. - Reviewed colposcopy results and pathology findings. Colposcopy was negative for dysplasia and the three cervical biopsies were negative for dysplasia, ans so was ECC, also negative. - Recommended repeat Pap with cotesting in 1 years - All patients questions were answered., Problem Routine gynecologic examination (442122038) Encounter for annual routine gynecological examination (Z01.419) Active confirmed Problem Vaginal dryness (39118572) Vaginal dryness (N89.8) Active confirmed Asymptomatic at the present time as patient is not currently sexually active. 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 Will try to obtain records. Patient then had a period of normal Paps with negative HPV until most recently where Pap was unsatisfactory with Positive HPV. Pap report requested from previous Boat Cleaning Supervisor. - Will call patient with results and manage accordingly., Vital Signs Heart Rate 76 /min 02/29/2024 Laura Lunsford 02/29/2024 09:32:02 AM EDT > Temperature 97.8 degrees Fahrenheit 02/29/2024 Davis carreno, Phylicia 02/29/2024 09:32:02 AM EDT > Respiratory Rate 18 /min 02/29/2024 Peace Lunsford 02/29/2024 09:32:02 AM EDT > Blood pressure diastolic 80 mm Hg 02/29/2024 [facility] Phylicia 02/29/2024 09:32:02 AM EDT > Oximetry 99 % 02/29/2024 Laura Lunsford 02/29/2024 09:32:02 AM EDT > Height-cm 162.56 cm 02/29/2024 Laura Lunsford 02/29/2024 09:32:02 AM EDT > Weight-kg 65.36 kg 02/29/2024 Laura Lunsford 02/29/2024 09:32:02 AM EDT > Height 64.00 in 02/29/2024 Laura Lunsford 02/29/2024 09:32:02 AM EDT > Blood pressure systolic 147 mm Hg 02/29/2024 Phylicia Blanco 02/29/2024 09:32:02 AM EDT > Weight 144.1 lbs 02/29/2024 Jonn Trinityneli webster 02/29/2024 09:32:02 AM EDT > BMI 24.73 kg/m2 02/29/2024 Laura Lunsford 02/29/2024 09:32:02 AM EDT > Encounters Encounter Location Date Provider Diagnosis Main [address] [place], [place] [id number] 02/29/2024 Jennifer Sumner Screening for cerv ical cancer Z12.4 ; Well woman exam with routine gynecological exam Z01.419 ; Encounter for screening mammogram for malignant neoplasm of breast Z12.31 and Cervical high risk human papillomavirus (HPV) DNA test positive R87.810 [place] [address] [place] [address] 03/05/2024 Jennifer Sumner ASCUS with positive high [...] Name Order Date ThinPrep Pap Test, Image-Guided ([id number]) 02/03/2015 Insurance Providers Payer Name Payer Address Payer Phone Subscriber Number Group Number Insured Name Patient Relationship to Insured Coverage Start Date Coverage End Date [employer] Medicare [address] [address] [place] [address] [id number] [place] Anastasia Ponce Self - patient is the insured 3 Medical [facility] [address] [address] [place]ACOBS [phone] [id number] Anastasia Ponce Self - patient is the [...]
--- OUTSIDE RECORDS SUMMARY | 2024-12-11 08:48 | XMS_ITS | Encounter Summary ---
Author Organization [facility] Address [address] [place] [address] Care Team Providers Care Reinstatement Clerk Name Role Phone Rodney Hernandez MD Primary Care Provider [phone] Encounter Details Date Type Department Care Team (Late Contact Info) Description 11/12/2024 Results Follow-Up CARLADeisy [facility] [address] [facility] [address] [address] [facility] [address] [place] [address] Renaat Mustafa MD [address] [facility] [address] [facility] [address] [place] [address] Social History Tobacco Use Types Packs/Day Years [...] Office Visit FREDIS [facility] [address] [place] [address] Mahi Saba APRN-KYLE [address] [email or web address] [place], [place] [id number] documented as of this encounter Visit Diagnoses Not on filedocumented in this encounter Care Teams Reinstatement Clerk Relationship Specialty Start Date End Date Rodney Hernandez MD [address] [place] [address] PCP - General Family Medicine 10/13/22 documented as of this encounter
--- NOTE | 2024-12-11 08:50 | MR_ITS ---
[address] [address] Patient Name: BECKY STRONG MRN: [id number] date: 1945 Sex: F Assigned Patient Location: MRI Current Patient Location: MRI Accession/Order Number: [id number] Exam Date: 12/11/2024 11:24 Report Date: 12/11/2024 11:31 At the request of: DORCAS AGUIRRE MD Procedure: MR knee RT wo con EXAMINATION: MRI OF THE RIGHT KNEE CLINICAL DATA: Chronic right knee pain for 5 months. COMPARISON: Right knee 11/08/2024 TECHNIQUE: Multiecho, multiplanar imaging was performed with use of an extremity coil. No contrast was administered. FINDINGS: Suboptimal evaluation due to motion. Joint:Small joint effusion. There is thinning of articular cartilage of the patella suggesting underlying chondromalacia. No definitive bone marrow edema is seen. No definitive fracture is seen. Soft tissues: There appears to be anterior soft tissue swelling. Quadriceps/Patellar tendon/retinaculum: Normal Muscles: Normal ACL:Difficult to visualize due to the motion. A partial tear cannot BE excluded. PCL:Normal Medial Meniscus:Limited evaluation due to motion. A posterior horn tear cannot BE excluded. Lateral Meniscus:Limited evaluation due to motion. No definitive tear is seen. MCL:Normal LCL complex: Normal MR/MR knee RT wo con IMPRESSION: SIGNIFICANTLY LIMITED EXAMINATION DUE TO MOTION. INTERNAL DERANGEMENT CANNOT BE EXCLUDED PARTICULARLY INVOLVING THE POSTERIOR HORN OF THE MEDIAL MENISCUS WELL THE ACL.. SMALL JOINT EFFUSION. Impression dictated by: Gadiel Alexis Jr. DCaroline 12/11/2024 11:31 AM Dictation Location: [place] [address] Electronically authenticated by: [id number] Y Date: 12/11/2024 11:31
== END 2024-12-11 08:44 | disposition home or self-care (01) ==
LOC: MRI 08:43
PROVIDERS: PCP Family Medicine; Visit Provider Family Medicine
DX: M23.91 Unspecified internal derangement of right knee (principal); M25.461 Effusion, right knee
CPT/HCPCS: 73721

== ENCOUNTER 2024-12-19 13:42 | Outpatient (OUT) | payer MEDICARE, SELFPAY ==
--- NOTE | 2024-12-19 13:47 | MR_ITS ---
[address] [address] Patient Name: BECKY STRONG MRN: [id number] date: 1945 Sex: F Assigned Patient Location: MRI Current Patient Location: MRI Accession/Order Number: [id number] Exam Date: 12/19/2024 15:57 Report Date: 12/19/2024 16:05 At the request of: DORCAS AGUIRRE MD Procedure: MR knee RT wo con MR knee RT wo con 12/19/2024 3:00 PM SIGNS AND SYMPTOMS: Lateral right knee pain, internal derangement of right knee. PROTOCOL: Multiplanar multisequence MR images of the right knee were obtained without IV contrast COMPARISON: 12/11/2024 FINDINGS: Fluid: There is a small joint effusion. No Roque's cyst.. Medial compartment: Medial meniscus: Intact. Medial collateral ligament: Intact. Medial femoral condyle cartilage: There is partial thickness chondromalacia.. . Medial tibial plateau cartilage: There is partial thickness chondromalacia. Lateral compartment: Lateral meniscus: Intact. Lateral collateral ligament: Intact. Lateral femoral condyle cartilage: There is mild partial thickness chondromalacia. Lateral tibial plateau cartilage: There is mild partial thickness chondromalacia. Posterolateral corner: Popliteus tendon: Intact. Popliteofibular ligament: Intact. Proximal tibiofibular joint: Preserved. Anterior compartment: Alignment: Normal. Quadriceps tendon: Intact. Patellar tendon: Intact. Retinaculum: Medial intact. Lateral intact. Patellar cartilage: There is mild partial thickness chondromalacia. Trochlea: Preserved. . Plica: None. Hoffa fat pad: Normal. Intercondylar compartment: Anterior cruciate ligament: Intact. Posterior cruciate ligament: Intact. Bones (other than subarticular marrow): Normal. Muscles: Normal. Vessels: Normal. Nerves: Normal. MR/MR knee RT wo con IMPRESSION: There is a small joint effusion. No evidence of Roque's cyst. 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 The knee is structurally intact. Impression dictated by: Mac Crowe M.D. 12/19/2024 4:05 PM Dictation Location: [place] [address] Electronically authenticated by: [id number] Y Date: 12/19/2024 16:05
--- OUTSIDE RECORDS SUMMARY | 2024-12-19 14:02 | XMS_ITS | CCD ---
Author Organization [facility] CliniSyct Care Team Providers Care Scratcher Name Role Phone Dorcas Aguirre MD Primary Care Provider [phone] DORCAS AGUIRRE Referring Unavailable DORCAS AGUIRRE Primary Care Unavailable GERI CHONG Attending Unavailable GERI CHONG Admitting Unavailable DORCAS AGUIRRE Primary Care Unavailable DORCAS AGUIRRE Referring Unavailable SELF, REFERRED Attending Unavailable SELF, REFERRED Admitting Unavailable Dorcas Aguirre MD Primary Care Provider [phone] SARANYA BUTCHER Admitting Unavailable SARANYA BUTCHER Attending Unavailable JAKIY DORCAS Primary Care Unavailable [facility], [facility] Consulting Unavailable SARANYA BUTCHER Referring Unavailable DORCAS AGUIRRE Primary Care Unavailable TIMOTHY ., DR TOSCANO Attending Unavailable HOY ., DR TOSCANO Admitting Unavailable HOY ., DR TOSCANO Primary Care Unavailable HOY ., DR TOSCANO Consulting Unavailable ZIEBER, DR FER Cameron Consulting Unavailable EDMONDS, DR SARANYA Massey Consulting Unavailable AHMED, DR GALEANA Admitting Unavailable HOY ., DR TOSCANO Primary Care Unavailable AHMED, DR GALEANA Attending Unavailable AHMED, DR GALEANA Consulting Unavailable HOY ., DR TOSCANO Admitting Unavailable HOY ., DR TOSCANO Attending Unavailable HOY ., DR TOSCANO Primary Care Unavailable HOY ., DR TOSCANO Consulting Unavailable ELTAHAWTri, DR KENNEY Consulting Unavailable JAKIY ., DR TOSCANO Primary Care Unavailable ELTAHAWTri, DR KENNEY Attending Unavailable ELTAFRANCISCO, DR KENNEY Admitting Unavailable ELA MELTON Admitting Unavailable ELA MELTON Consulting Unavailable ELA MELTON Attending Unavailable JAKIY ., DR TOSCANO Primary Care Unavailable HOY ., DR TOSCANO Admitting Unavailable HOY ., DR TOSCANO Attending Unavailable HOY ., DR TOSCANO Primary Care Unavailable HOY ., DR TOSCANO Consulting Unavailable HOY ., DR TOSCANO Admitting Unavailable HOY ., DR TOSCANO Attending Unavailable HOY ., DR TOSCANO Referring Unavailable HOY ., DR TOSCANO Primary Care Unavailable HOY ., DR TOSCANO Consulting Unavailable EDMONDS, DR SARANYA Massey Consulting Unavailable HOY ., DR TOSCANO Consulting Unavailable HOY ., DR TOSCANO Admitting Unavailable HOY ., DR TOSCANO Attending Unavailable HOY ., DR TOSCANO Primary Care Unavailable HOY ., DR TOSCANO Consulting Unavailable HOY ., DR TOSCANO Admitting Unavailable HOY ., DR TOSCAON Primary Care Unavailable HOY ., DR TOSCANO [...] LETICIA HOYT Unavailable Gertrudis Encarnacion Attending Unavailable Saranya Butcher MD Unavailable Unavailable Dorcas Aguirre MD Primary Care Provider [phone] Dorcas Aguirre MD Primary Care Provider [phone] SANJUANITA WHIPPLE Referring Unavailable HOY, DORCAS M Primary Care Unavailable SARANYA RAMIREZ Attending Unavailable SARANYA RAMIREZ Referring Unavailable HOY, DORCAS Cm Primary Care Unavailable HOY, DORCAS M Referring Unavailable HOY, DORCAS M Primary Care Unavailable SOLE, SANJUANITA L Admitting Unavailable SOLE, SANJUANITA L Attending Unavailable HOY, DORCAS M Primary Care Unavailable SARANYA RAMIREZ Attending Unavailable HOY, DORCAS M Primary Care Unavailable SANJUANITA WHIPPLE Attending Unavailable HOY, DORCAS M Referring Unavailable HOY, DORCAS M Primary Care Unavailable SANJUANITA WHIPPLE L Attending Unavailable HOY, DORCAS M Referring Unavailable HOY, DORCAS M Primary Care Unavailable SOLE, SANJUANITA L Attending Unavailable HOY, DORCAS M Referring Unavailable HOY, DORCAS M Primary Care Unavailable SANJUANITA WHIPPLE L Attending Unavailable HOY, DORCAS M Referring Unavailable DORCAS AGUIRRE Primary Care Unavailable Saranya Butcher Attending Saranya Faustin Referring UnavailDorcas Toscano Primary Care Unavailable Saranya Butcher Attending Dorcas Dutton Primary Care Unavailable Dorcas Aguirre Referring Unavailable Dorcas Aguirre MD Primary Care Provider MELISSA SABA Attending Unavailable ELOISA MUSTAFA Attending Unavailable ELOISA MUSTAFA Attending Unavailable MELISSA SABA Attending Unavailable Medications Current Medications Medication Drug Class(es) Dates Sig (Normalized) Sig (Original) alendronic acid 70 mg oral tablet (14 sources) Bisphosphonate Start: 02-22-2021 alendronate 70 MG tablet amitriptyline hydrochloride 50 mg oral tablet (18 sources) Tricyclic Antidepressant Start: 02-26-2017 take 1 [...] 81 mg celecoxib 200 mg oral capsule (14 sources) Nonsteroidal Anti-inflammatory Drug Start: 05-28-2022 End: 05-27-2022 take 200 mg by mouth once daily 200 mg, oral, Daily, First dose on Tue05/28/22 at 0900, [facility] Unit Start: 05-27-2022 End: 06-26-2022 take 1 capsule by mouth once daily celecoxib (CeleBREX) 200 MG capsule Take 200 mg by mouth Daily 05/27/2022 Active cephalexin 500 mg oral capsule (12 sources) Cephalosporin Antibacterial Start: 05-27-2022 End: 06-06-2022 cephalexin (Keflex) 500 MG capsule 05/27/2022 Active cholecalciferol 0.05 mg oral tablet (3 sources) Vitamin D take 1 tablet by mouth in the morning cholecalciferol, vitamin D3, 2,000 units tablet Take 1 tablet (2,000 Units total) by mouth in the morning. Active diclofenac sodium 75 mg delayed release oral tablet (20 sources) Nonsteroidal Anti-inflammatory Drug Start: 12-30-2018 take 1 tablet by mouth in the morning, then take 1 tablet by mouth at bedtime diclofenac (VOLTAREN) 75 mg EC tablet Take 1 tablet (75 mg total) by mouth in the morning and 1 tablet (75 mg total) before bedtime. 11 12/30/2018 Active fluorouracil 50 mg/ml topical cream (18 sources) Nucleoside Metabolic Inhibitor Start: 09-19-2024 fluorouracil (Efudex) 5 % cream Indications: Actinic keratosis Apply to directed areas on upper arms and chest bid x 14 days 40 g 09/19/2024 Active fluorouracil (Ef udex) 5 % solution every 12 (twelve) hours Active levothyroxine sodium 0.075 mg oral tablet (20 sources) l-Thyroxine Start: 02-24-2024 take 1 tablet [...] guidelines. liothyronine sodium 0.005 mg oral tablet (14 sources) l-Triiodothyronine Start: 05-28-2022 End: 05-27-2022 take 5 ug by mouth once daily 5 mcg, oral, Daily, First dose on Tue05/28/22 at 0600 liothyronine (Cy tomel) 5 MCG tablet Active lisinopril 10 mg oral tablet (20 sources) Angiotensin Converting Enzyme Inhibitor Start: 05-28-2022 End: 05-27-2022 take 10 mg by mouth once daily 10 mg, oral, Daily, First dose on 05/28/22 at 0900 Hold for systolic blood pressure less than 110. Start: 04-01-2017 lisinopril 10 MG tablet Start: 04-01-2017 take 2 tablets by mo [facility] once daily before breakfast lisinopril (PRINIVIL,ZESTRIL) 10 mg tablet Take 2 tablets (20 mg total) by mouth every morning before breakfast. 04/01/2017 Active montelukast 10 mg oral tablet (14 sources) Leukotriene Receptor Antagonist montelukast (Singula ir) 10 MG tablet in the morning. Active ondansetron 4 mg disintegrating oral tablet (20 sources) Serotonin-3 Receptor Antagonist Start: 06-03-2022 ondansetron ODT (Zofran-ODT) 4 MG disintegrating tablet 06/03/2022 Active Start: 05-27-2022 End: 06-03-2022 ondansetron (Zofran) 4 MG ta blet 05/27/2022 Active Start: 05-27-2022 End: 05-27-2022 take [...] should allow tablet to dissolve on tongue. pantoprazole 40 mg delayed release oral tablet (3 sources) Proton Pump Inhibitor take 1 tablet by mouth in the morning pantoprazole (PROTONIX) 40 mg EC tablet Take 1 tablet (40 mg total) by mouth in the morning. Active phenazopyridine hydrochloride 200 mg delayed release oral tablet (11 sources) Start: 023 phenazopyridine (Pyridium) 200 MG tablet 08/25/2022 Active 0.25 mg, 0.5 mg dose 1.5 ml semaglutide 1.34 mg/ml pen injector (2 sources) Start: semaglutide 0.25 mg or 0.5 mg(2 mg/1.5 mL) pen injector INJECT 25 UNITS (0.25MG) SUBCUTANEOUSLY ONCE WEEKLY ON THE SAME DAY 05/28/2024 Active simvastatin 20 mg oral tablet (20 sources) HMG-CoA Reductase Inhibitor Start: 017 take 1 tablet by mouth once daily simvastatin (ZOCOR) 20 mg tablet Take 1 tablet (20 mg total) by mouth nightly. 04/01/2017 Active sulfamethoxazole 800 mg / trimethoprim 160 mg oral tablet (11 sources) Dihydrofolate Reductase Inhibitor Antibacterial, Sulfonamide Antimicrobial Start: take 1 tablet by mouth once in the morning, then take 1 tablet by mouth once at bedtime sulfamethoxazole-trim ethoprim (Bactrim DS) 800-160 MG per tablet Take 1 tablet by mouth in the morning and 1 tablet before bedtime. 08/25/2022 Active terbinafine 250 mg oral tablet (3 sources) Allylamine Antifungal Start: End: take 1 tablet by mouth once daily terbinafine (LamISIL) 250 MG tablet Indications: Onychomycosis Take 1 po daily x 2 months 30 tablet 1 01/13/2023 03/20/2024 Discontinued (Therapy completed) traMADol hydrochloride 50 mg oral tablet (12 sources) Opioid Agonist Start: traMADol (Ultram) 50 MG tablet 05/27/2022 Active Start: 05-27-2022 End: 06-03-2022 take [...] Sig (Original) acetaminophen 500 mg oral tablet (14 sources) Start: 05-27-2022 End: 05-27-2022 acetaminophen (TYLENOL) tablet 1,000 mg Start: 05-27-2022 Acetaminophen Extra Strength 500 MG tablet 05/27/2022 Active Start: 05-27-2022 End: 06-03-2022 take 2 tablets [...] Minutes, Every 8 hours, First dose on 05/27/23 at 1800, For 2 doses, Recovery & [...] 05-27-2022 naloxone (NARCAN) injection 0.4 mg oxyCODONE (13 sources) Opioid Agonist Start: 05-27-2022 End: 05-27-2022 oxyCODONE (ROXICODONE) immediate release tablet 5 mg Start: 05-27-2022 oxyCODONE (Deysi icodone) 5 MG immediate release tablet 05/27/2022 Active Start: 05-27-2022 End: 06-03-2022 oxyCODONE [...] polyvinyl alcohol 0.014 ml/m l ophthalmic solution (14 sources) Start: 05-27-2022 End: 05-27-2022 1 drop, Both Eyes, Daily PRN , dry eyes, Starting on Inez 05/27/22 at 1445 polyvinyl alcoho l (Liquifilm Tears) 1.4 % ophthalmic solution Administer 1 drop into both eyes Active promethazine hydrochloride 25 mg rectal suppository (2 sources) Phenothiazine Start: 05-27-2022 End: 05-27-2022 take 1 tablet by mouth every six hours as needed promethazine (PHENERGAN) tablet 25 mg Start: 05-27-2022 End: 05-27-2022 take 25 mg rectal route every six hours as needed promethazine (PHENERGAN) suppository 25 mg sennosides, detention 8.6 mg oral tablet (1 source) Start: 05-27-2022 End: 05-27-2022 senna (SENOKOT) tablet 8.6 mg Sodium Chloride (1 source) Start: 05-27-2022 End: 05-27-2022 sodium chloride 0.9 % flush 10 mL traZODone hydrochloride 50 mg oral tablet (1 source) Serotonin Reuptake Inhibitor Start: 05-27-2022 End: 05-27-2022 traZODone (DESYREL) tablet 50 mg Problems Active Problems Problem Classification Problem Date Documented Date Episodic/Chronic Cataract (11 sources) Age-related nuclear cataract of left eye; Translations: [Age-related nuclear cataract, left eye] Onset: 10-13-2022 10-13-2022 Chronic Chronic kidney disease (7 sources) Chronic kidney disease stage 3; Translations: [Chronic kidney disease, stage 3] Onset: 07-13-2017 03-05-2021 Chronic Disorders of lipid metabolism (8 sources) Dyslipidemia; Translations: [Hyperlipidemia, unspecified] Onset: 07-13-2017 03-05-2021 Chronic Essential hypertension (11 sources) Essential hypertension; Translations: [Essential (primary) hypertension] [...] sources) Onychomycosis; Translations: [Tinea unguium] 03-20-2024 Episodic Neoplasms of unspecified nature or uncertain behavior (2 sources) Neoplastic disease; Translations: [Neoplasm of unspecified behavior of bone, soft tissue, and skin] 09-19-2024 Episodic Osteoarthritis (15 sources) Osteoarthritis of left hip joint; Translations: [Unilateral primary osteoarthritis, left hip] Onset: 04-05-2017 Resolved: 07-13-2017 03-05-2021 Chronic Osteoporosis (1 source) Age-related osteoporosis without current pathological fracture; Translations: [AGE-REL OSTEOPOR W/O CURR PATH FX] Onset: 06-03-2022 Chronic Other aftercare (7 sources) Patient encounter status; Translations: [Aftercare following joint replacement surgery] Onset: 03-09-2018 03-05-2021 Chronic Other aftercare (2 sources) Aftercare following joint replacement surgery Chronic Other aftercare (2 sources) Encounter for other orthopedic aftercare Episodic Other aftercare (2 sources) Removal of sutures done; Translations: [Encounter for removal of sutures] 11-21-2024 Episodic Other connective tissue disease (7 sources) History of total hip arthroplasty; Translations: [...] ACUTE POSTPROCEDURAL PAIN] Onset: 06-03-2022 Episodic Other non-epithelial cancer of skin (4 sources) History of squamous cell carcinoma of skin; Translations: [Personal history of other malignant neoplasm of skin] 09-19-2024 Episodic Other non-traumatic joint disorders (2 sources) [...] unspecified] Onset: 03-10-2021 Episodic Other skin disorders (4 sources) Seborrheic keratosis; Translations: [Other seborrheic keratosis] 03-20-2024 Episodic Other skin disorders (4 sources) Lentiginosis; Translations: [Other melanin hyperpigmentation] 03-20-2024 Episodic Other skin disorders (4 sources) Actinic keratosis; Translations: [Actinic keratosis] 03-20-2024 [...] Retinal detachments; defects; vascular occlusion; and retinopathy (11 sources) Retinitis pigmentosa; 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] Onset: 10-13-2022 10-13-2022 Chronic Thyroid disorders (4 sources) Hypothyroidism, unspecified; Translations: [HYPOTHYROIDISM UNSPECIFIED] Onset: 03-30-2022 Chronic Unclassified (1 source) CONTACT W/AND (SUSP) EXPOS COVID-19; Translations: [CONTACT W/AND (SUSP) EXPOS COVID-19] Onset: 11-18-2021 Unclassified (1 source) abnormal PAP Onset: 06-11-2024 Unclassified (1 source) Consult Onset: 03-27-2024 Viral infection (5 sources) Human papilloma virus infection; Translations: [Papillomavirus as the cause of diseases classified elsewhere] Onset: 04-10-2024 03-27-2024 Episodic Past or Other Problems Problem Classification Problem Date Documented Date Episodic/Chronic Cardiac dysrhythmias (4 sources) Palpitations; Translations: [PALPITATIONS] Onset: 10-27-2021 Episodic Complication of device; implant or graft (20 sources) Mechanical complication of internal joint prosthesis; [...] (1 source) Patient encounter status; Translations: [Other alf (current) drug therapy] Onset: 04-05-2017 03-05-2021 Episodic Other aftercare (6 sources) Long-term current use of drug therapy; Translations: [Other vermin exterminator (current) drug therapy] Onset: 04-05-2017 04-05-2017 Episodic Other connective tissue disease (7 sources) Thigh pain; Translations: [Pain in left thigh] Onset: 01-18-2019 03-05-2021 Episodic Other connective tissue disease (6 sources) Iliotibial band friction syndrome of left knee; Translations: [Iliotibial band syndrome, left leg] Onset: 03-09-2018 03-09-2018 Episodic Other eye disorders (11 sources) Dry eyes; Translations: [Dry eye syndrome [...] Translations: [SYNCOPE AND COLLAPSE] Onset: 11-14-2021 Episodic Unclassified (1 source) Preprocedural examination done 05-21-2024 Results Test Name Value Interpretation Reference Range Facility No Panel Informationon 11-07 Lesion length (cm): 0.8 Lesion width (cm): [...] 6.0 ml Estimated blood loss: 1.0 ml [employer] Complexity: Intermediate Final length (cm): 4.7 Reason [...] uncontrollable bleeding, or complications. Dressing type: bandage [employer] No Panel InformationOrdered By: Gaye Angulo on 11-07-2024 [employer] No Panel Informationon 09-19 Type of biopsy: tangential Informed consent: discussed [...] taken Amount of lidocaine used: 0.3 [facility] Type of biopsy: tangential Informed consent: discussed [...] taken Amount of lidocaine used: 0.4 cc Ani[facility] e Surgical Pathologyon 025 Surgical Pathology Normal [facility] Comment on above: Result Comment: [facility] [address] [place] [address] Surgical Pathology Consultation Patient Name:BECKY PONCE:1945 (Age: 78)Gender:FTaken:06/11/2024Reported:06/19/2024Physician(s):Sanjuanita Whipple M.D. ([phone])Copy To: Rec. #:[id number]: #[id number] Final Pathologic Diagnosis 1. Cervix, cone biopsy: Negative for atypia/dysplasia; largely denuded cervical stroma. 2. Endocervical curettage and endometrial brushing: Atrophic-appearing squamous epithelium without atypia. No glandular epithelium identified. Report Electronically Signed Out 06/19/2024Jerzy Grant MD Interpretation performed at [facility], [address] [place] [address], License number: [id number]. Clinical History Abnormal Pap. 1. Marked at 12 o'clock. Gross Description 1. Received in formalin labeled [facility], cervical cone is an oriented portion of cervical stroma surface by cervical mucosa, 1.1 x 1.1 x 0.7 cm. The mucosal surface is gupta-burroughs smooth glistening with a slitlike os, measuring 0.4 cm in greatest dimension and surrounded by slightly granular mucosa. The endocervical margin is engorged with the remainder of the resection margin inked black and the specimen is into 4 quadrants and serially sectioned. Sections are submitted in cassettes, A-D is follows: A- 12-3 o'clock B- 3-6 o'clock C- 6-9 o'clock D- 9-12 o'clock Fixation Time: Tissue removed from patient: 4 Time specimen placed in formalin: 151 Cold ischemic time: 4 minutes Total fixation time: 27.25 hours (4,ns,[id number], m1) TB. 2. Received in formalin labeled [facility], ECC is a Telfa pad and plastic metal brush with gupta delicate soft tissue bits, 0.9 x 0.2 x 0.1 cm in aggregate. The specimens are filtered and submitted in single cassette. (1,ns,[id number], m1) TB tg/06/12/2024NSK Specimen(s) Received 1: Cervical cone 2: Endocervical curettings and endometrial brushings Fee Codes(s): 1; 86518 2; 78320 ECG 12 leadon 05-21-2024 [facility] Cytologyon 04-10-2024 Cytology Normal [facility] Comment on above: Result Comment: [facility] [address] [place] [address] Gynecologic Cytology Consultation Patient Name:BECKY PONCE:1945 (Age: 78)Gender:FTaken:4Reported:4Physician(s):Sanjuanita Whipple M.D. ([phone])Copy To: Rec. #:[id number]: #[id number] Final Cytologic Interpretation ThinPrep Pap Test (Cervical): Satisfactory for evaluation. NEGATIVE FOR INTRAEPITHELIAL LESION OR MALIGNANCY. The cytologic changes of atrophy are noted. [facility]/04/11/2024 Interpretation performed at [facility], [address] [place] [address], License number: [id number]. 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 The Pap test is primarily effective for the diagnosis and prevention of squamous cell carcinoma. Regular screening is critical for prevention. ThinPrep liquid-based slides, which meet the Timber Killer criteria for automated screening, have been screened by the ThinPrep Imaging System (as of 01/16/07) along with an additional manual rescreening by a machine printer and, if indicated, by a pathologist. HIGH RISK [facility] HPV 31+33+35+39+45+51+52 +56+58+59+66+68 DNA STEVE+probe Ql (Cvx) HPV SPECIMEN TYPE ThinPrep HPV 16 Negative (qualifier value) HPV 18 Negative (qualifier value) OTHER HIGH RISK HPV Positive (qualifier value) For the DNA of any or combination of the following HPV types: 31,33,35,45, 52,56,58,59,66 and 68. Normal [facility] Comment on above: Performed By: #### 7 1431-1 #### [facility] ([id number]) [address] [place] [address], [place] [address] [facility] ([id number]) [address] [place] [address], [address] [place] [address] Surgical Pathologyon 024 Surgical Pathology Normal [facility] Comment on above: Result Comment: [facility] [address] [place] [address] Surgical Pathology Consultation Patient Name:BECKY PONCE:1945 (Age: 78)Gender:FTaken:4Reported:04/19/2024hysician(s):Sanjuanita Whipple M.D. ([phone])Copy To: Rec. #:[id number]: #[id number] Final Pathologic Diagnosis 1. Cervix, biopsy @12:00: Low grade squamous intraepithelial lesion. 2. Endocervix, curettage; Low grade squamous intraepithelial lesion. Report Electronically Signed Out 04/19/2024Gene MD Rudy [place] [address], License number: [id number]. 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 Abnormal pap with HPV. Gross Description 1. Received in formalin labeled [facility], 12 o'clock is a light gupta soft tissue bit, 0.3 cm. The specimen is filtered and entirely submitted in a single cassette. (1, ns, [id number],m4) DM. 2. Received in formalin labeled [facility], ECC is a wired brush with pale-gupta soft tissue fragments admixed with mucoid material, 0.4 x 0.2 x 0.1 cm in aggregate. The specimen is filtered and entirely submitted in a single cassette. (1, ns, [id number],m4) DM. dm/04/11/2024GR Specimen(s) Received 1: Cervical biopsy 12 o'clock position 2: Endocervical curettings Fee Codes(s): 1; 15012 2; 01731 No Panel Informationon 03-20 [facility] Visit Report on 10-20-2022 Plastic Surgery Visit Report [facility] [address] [place] [address], [address] [place], [place] [address] OFFICE VISIT Date of Service: 10/20/22 MR#: [id number] Acct: [id number] Name: BECKY PONCE Rep #: [id number] : 1945 Provider: Dr. Gertrudis grimaldo MD Age/Sex: 76/F Location: [facility] Status: Signed Intake Vital Signs 10/20/22 13:35 Height 5 ft 4 in Weight: 140 lb 6 oz BMI 24.0 Body Surface Area 1.68 BP 157/75 H Blood Pressure Location Rt brachial Position Sitting Respiration 16 Pulse 85 Pulse Source Monitor Temp 97.4 F L Temp Source Temporal Pulse Oximetry (%) 97 Oxygen Delivery Method room air Intake Visit Reasons: CONSULT-LIPOSUCTION Selling Manager Required: No Accompanied by: None Is patient [...] 10/20/22 [History Confirmed 10/20/22] [facility] (Updated 10/20/22 @ 15:08 by [...] lifestyle. 10/20/22 1510 Date Gertrudis Encarnacion MD [facility] Signature: Date (if applicable) CC: Normal [facility] CBC AUTO DIFFon 06-01-2022 BASO # 0.0 103/ul Normal 0.0-0.1 [facility] Comment on above: Performed By: #### F T3, TSH, T4 #### [facility] [address] [address] [address] Abelardo Barrett Basophils/100 WBC (Bld) 0.4 % Normal 0.2-2.0 [facility] Comment on above: Performed By: #### F T3, TSH, T4 #### [facility] [address] [address] [address] Abelardo Barrett EO # 0.1 103/ul Normal 0.0-0.7 [facility] Comment on above: Performed By: #### F T3, TSH, T4 #### [facility] [address] [address] [address] Abelardo Barrett Eosinophils/100 WBC (Bld) 2.3 % Normal 0.9-7.0 [facility] Comment on above: Performed By: #### F T3, TSH, T4 #### [facility] [address] [place] [address] Dr. Abelardo Barrett Erythrocyte distribution width (RBC) [Ratio] 13.1 % Normal 11.0-15.0 [facility] Comment on above: Performed By: #### F T3, TSH, T4 #### [facility] [address] [place] [address] Dr. Abelardo Barrett Hematocrit (Bld) [Volume fraction] 23.4 % Critically low 36.0-48.0 [facility] Comment on above: Performed By: #### F T3, TSH, T4 #### [facility] [address] [place] [address] Dr. Abelardo Barrett Hemoglobin (Bld) [Mass/Vol] 7.7 g/dL Critically low 12.0-16.0 [facility] Comment on above: Performed By: #### F T3, TSH, T4 #### [facility] [address] [place] [address] Dr. Abelardo Barrett IG # 0.02 10e3/ul Normal 0.00-0.03 [facility] Comment on above: Performed By: #### F T3, TSH, T4 #### [facility] [address] [place] [address] Dr. Abelardo Barrett IG % 0.4 % Normal 0.0-0.5 [facility] Comment on above: Performed By: #### F T3, TSH, T4 #### [facility] [address] [place] [address] Dr. Abelardo Barrett LYMPH # 0.9 103/ul Critically low 1.2-3.8 [facility] Comment on above: Performed By: #### F T3, TSH, T4 #### [facility] [address] [place] [address] Dr. Abelardo Barrett Lymphocytes/100 WBC (Bld) 16.5 % Critically low 20.5-60.0 [facility] Comment on above: Performed By: #### F T3, TSH, T4 #### [facility] [address] [place] [address] Dr. Abelardo Barrett MANUAL DIFF REQ NO Normal [facility] Comment on above: Performed By: #### F T3, TSH, T4 #### [facility] [address] [place] [address] Dr. Abelardo Barrett MCH (RBC) [Entitic mass] 30.8 pg Normal 26.7-34.0 [facility] Comment on above: Performed By: #### F T3, TSH, T4 #### [facility] [address] [place] [address] Dr. Abelardo Barrett MCHC (RBC) [Mass/Vol] 32.9 g/dL Normal 29.9-35.2 [facility] Comment on above: Performed By: #### F T3, TSH, T4 #### [facility] [address] [place] [address] Dr. Abelardo Barrett MCV (RBC) [Entitic vol] 93.6 fL Normal 81.0-99.0 [facility] Comment on above: Performed By: #### F T3, TSH, T4 #### [facility] [address] [place] [address] Dr. Abelardo Barrett MONO # 1.0 103/ul Critically high 0.3-0.8 [facility] Comment on above: Performed By: #### F T3, TSH, T4 #### [facility] [address] [place] [address] Dr. Abelardo Barrett Monocytes/100 WBC (Bld) 17.1 % Critically high 1.7-12.0 [facility] Comment on above: Performed By: #### F T3, TSH, T4 #### [facility] [address] [address] [address] Abelardo Barrett NEUT # 3.5 103/ul Normal 1.4-6.5 [facility] Comment on above: Performed By: #### F T3, TSH, T4 #### [facility] [address] [address] [address] Abelardo Barrett Neutrophils/100 WBC (Bld) 63.3 % Normal 43.0-75.0 [facility] Comment on above: Performed By: #### F T3, TSH, T4 #### [facility] [address] [address] [address] Abelardo Barrett Platelet mean volume (Bld) [Entitic vol] 8.8 fL Critically low 9.5-13.5 [facility] Comment on above: Performed By: #### F T3, TSH, T4 #### [facility] [address] [place] [address] Dr. Abelardo Barrett PLT 255 103/ul Normal 150-450 [facility] Comment on above: Performed By: #### F T3, TSH, T4 #### [facility] [address] [place] [address] Dr. Abelardo Barrett RBC 2.50 106/ul Critically low 4.20-5.40 [facility] Comment on above: Performed By: #### F T3, TSH, T4 #### [facility] [address] [place] [address] Dr. Abelardo Barrett WBC 5.6 103/ul Normal 4.0-11.0 [facility] Comment on above: Performed By: #### F T3, TSH, T4 #### [facility] [address] [place] [address] Dr. Abelardo Barrett ER URINE PROFILEon 3 Bilirubin Ql (U) Negative Normal NEGATIVE [facility] Comment on above: Performed By: #### F T3, TSH, T4 #### [facility] [address] [place] [address] Dr. Abelardo Barrett Clarity (U) CLEAR Normal CLEAR [facility] Comment on above: Performed By: #### F T3, TSH, T4 #### [facility] [address] [place] [address] Dr. Abelardo Barrett Color (U) LT. YELLOW Normal YELLOW [facility] Comment on above: Performed By: #### F T3, TSH, T4 #### [facility] [address] [place] [address] Dr. Abelardo BOWMAN A micrscopic examination will be performed if indicated. Normal [facility] Comment on above: Performed By: #### F T3, TSH, T4 #### [facility] [address] [place] [address] Dr. Abelardo Barrett Glucose Ql (U) Negative Normal NEGATIVE [facility] Comment on above: Performed By: #### F T3, TSH, T4 #### [facility] [address] [place] [address] Dr. Abelardo Barrett Hemoglobin Ql (U) Negative Normal NEGATIVE [facility] Comment on above: Performed By: #### F T3, TSH, T4 #### [facility] [address] [place] [address] Dr. Abelardo Barrett Ketones Ql (U) Negative Normal NEGATIVE [facility] Comment on above: Performed By: #### F T3, TSH, T4 #### [facility] [address] [place] [address] Dr. Abelardo Barrett LEUKOCYTES TRACE Abnormal NEGATIVE [facility] Comment on above: Performed By: #### F T3, TSH, T4 #### [facility] [address] [place] [address] Dr. Abelardo Barrett Nitrite Ql (U) Negative Normal NEGATIVE [facility] Comment on above: Performed By: #### F T3, TSH, T4 #### [facility] [address] [place] [address] Dr. Abelardo Barrett pH (U) 6.5 [pH] Normal 5-9 [facility] Comment on above: Performed By: #### F T3, TSH, T4 #### [facility] [address] [place] [address] Dr. Abelardo Barrett SPEC GRAVITY <=1.005 Abnormal 1.005-<=1.0 25 [facility] Comment on above: Performed By: #### F T3, TSH, T4 #### [facility] [address] [place] [address] Dr. Abelardo Barrett UA PROTEIN Negative Normal NEGATIVE/ TRACE [facility] Comment on above: Performed By: #### F T3, TSH, T4 #### [facility] [address] [place] [address] Dr. Abelardo Barrett UR MICRO IND INDICATED Normal [facility] Comment on above: Performed By: #### F T3, TSH, T4 #### [facility] [address] [place] [address] Dr. Abelardo Barrett Urobilinogen Qn (U) 0.2 {Erik'U}/dL Normal 0.2 - 1. 0 [facility] Comment on above: Performed By: #### F T3, TSH, T4 #### [facility] [address] [place] [address] Dr. Abelardo aBrrett PROF 14(COMP METB)on 023 Albumin [Mass/Vol] 2.2 g/dL Critically low 3.4-5.0 [facility] Comment on above: Performed By: #### F T3, TSH, T4 #### [facility] [address] [place] [address] Dr. Abelardo Barrett Albumin/Globulin [Mass ratio] 0.6 {ratio} Normal [facility] Comment on above: Performed By: #### F T3, TSH, T4 #### [facility] [address] [place] [address] Dr. Abelardo Barrett ALP [Catalytic activity/Vol] 49 U/L Normal 46-116 [facility] Comment on above: Performed By: #### F T3, TSH, T4 #### [facility] [address] [place] [address] Dr. Abelardo Barrett ALT [Catalytic activity/Vol] 36 U/L Normal 14-59 [facility] Comment on above: Performed By: #### F T3, TSH, T4 #### [facility] [address] [place] [address] Dr. Abelardo Barrett Anion gap [Moles/Vol] 12.2 mmol/L Normal [facility] Comment on above: Performed By: #### F T3, TSH, T4 #### [facility] [address] [address] [address] Abelardo Barrett AST [Catalytic activity/Vol] 43 U/L Critically high 15-37 [facility] Comment on above: Performed By: #### F T3, TSH, T4 #### [facility] [address] [address] [address] Abelardo Barrett Bilirubin [Mass/Vol] 0.7 mg/dL Normal 0.2-1.0 [facility] Comment on above: Performed By: #### F T3, TSH, T4 #### [facility] [address] [place] [address] Dr. Abelardo Barrett Calcium [Mass/Vol] 11.0 mg/dL Critically high 8.5-10.1 [facility] Comment on above: Performed By: #### F T3, TSH, T4 #### [facility] [address] [place] [address] Dr. Abelardo Barrett Chloride [Moles/Vol] 98 mmol/L Normal 98-107 [facility] Comment on above: Performed By: #### F T3, TSH, T4 #### [facility] [address] [place] [address] Dr. Abelardo Barrett CO2 [Moles/Vol] 31.7 mmol/L Normal 21.0-32.0 [facility] Comment on above: Performed By: #### F T3, TSH, T4 #### [facility] [address] [address] [address] Abelardo Barrett Creatinine [Mass/Vol] 1.17 mg/dL Critically high 0.55-1.02 [facility] Comment on above: Performed By: #### F T3, TSH, T4 #### [facility] [address] [place] [address] Dr. Abelardo Barrett EGFR-AF SAUDI ARABIAN 55 mL/min/1.73m2 Critically low >=60 [facility] Comment on above: Performed By: #### F T3, TSH, T4 #### [facility] [address] [address] [address] Abelardo Barrett EGFR-NON AF SAUDI ARABIAN 45 mL/min/1.73m2 Critically low >=60 [facility] Comment on above: Performed By: #### F T3, TSH, T4 #### [facility] [address] [address] [address] Abelardo Barrett Globulin (S) [Mass/Vol] 3.4 g/dL Normal [facility] Comment on above: Performed By: #### F T3, TSH, T4 #### [facility] [address] [address] [address] Abelardo Barrett Glucose [Mass/Vol] 107 mg/dL Critically high 74-106 [facility] Comment on above: Performed By: #### F T3, TSH, T4 #### [facility] [address] [address] [address] Abelardo Barrett Potassium [Moles/Vol] 4.9 mmol/L Normal 3.5-5.1 [facility] Comment on above: Performed By: #### F T3, TSH, T4 #### [facility] [address] [address] [address] Abelardo Barrett Protein [Mass/Vol] 5.6 g/dL Critically low 6.4-8.2 [facility] Comment on above: Performed By: #### F T3, TSH, T4 #### [facility] [address] [place] [address] Dr. Abelardo Barrett Sodium [Moles/Vol] 137 mmol/L Normal 136-145 [facility] Comment on above: Performed By: #### F T3, TSH, T4 #### [facility] [address] [address] [address] Abelardo Barrett Urea nitrogen [Mass/Vol] 27.0 mg/dL Critically high 7.0-18.0 [facility] Comment on above: Performed By: #### F T3, TSH, T4 #### [facility] [address] [address] [address] Abelardo Barrett Urea nitrogen/Creatinine [Mass ratio] 23.1 mg/mg Normal [facility] Comment on above: Performed By: #### F T3, TSH, T4 #### [facility] [address] [place] [address] Dr. Abelardo Barrett URINE MICROSCOPIC ONLYon BACTERIA TRACE Abnormal NONE SEEN [facility] Comment on above: Performed By: #### F T3, TSH, T4 #### [facility] [address] [place] [address] Dr. Abelardo Barrett Bacteria identified Cx Nom (U) NOT INDICATED Normal [facility] Comment on above: Performed By: #### F T3, TSH, T4 #### [facility] [address] [place] [address] Dr. bAelardo Barrett CAST NONE SEEN Normal NONE SEEN [facility] Comment on above: Performed By: #### F T3, TSH, T4 #### [facility] [address] [place] [address] Dr. Abelardo Barrett Crystals LM Nom (Urine sed) NONE SEEN Normal NONE SEEN [facility] Comment on above: Performed By: #### F T3, TSH, T4 #### [facility] [address] [place] [address] Dr. Abelardo Barrett Epithelial cells LM Ql (Urine sed) RARE Normal NONE SEEN /RARE [facility] Comment on above: Performed By: #### F T3, TSH, T4 #### [facility] [address] [place] [address] Dr. Abelardo Barrett MUCOUS NONE SEEN Normal NONE SEEN [facility] Comment on above: Performed By: #### F T3, TSH, T4 #### [facility] [address] [place] [address] Dr. Abelardo Barrett RBC 0-2 Normal 0-2 [facility] Comment on above: Performed By: #### F T3, TSH, T4 #### [facility] [address] [place] [address] Dr. Abelardo Barrett WBC 0-2 Abnormal NONE SEEN [facility] Comment on above: Performed By: #### F T3, TSH, T4 #### [facility] [address] [place] [address] Dr. Abelardo Barrett Bacteria Spec Anaerobe Culto n 05-27-2022 Bacteria identified Anaer cx Nom (Unsp spec) Culture, Anaerobic Status = F No anaerobes grown after 4 days. Normal [facility] Comment on above: Performed By: #### 1 988-5 #### [facility] [address] [place] [address] Bacteria identified Anaer cx Nom (Unsp spec) Culture, Anaerobic Status = F No anaerobes grown after 4 days. Normal [facility] Comment on above: Performed By: #### 1 988-5 #### [facility] [address] [place] [address] Bacteria Tiss Culton 023 Bacteria identified Cx [...] to a previously preliminary verified report. Normal [facility] Comment on above: Performed By: #### 1 988-5 #### [facility] [address] [place] [id number] Bacteria identified Cx Nom (Tiss) Culture, Tissue [...] to a previously preliminary verified report. Normal [facility] Comment on above: Performed By: #### 1 988-5 #### [facility] [address] [place] [address] Blood type and Indirect anti body screen panel (Bld)on 05-27-2022 ABO group Nom (Bld) O Normal [facility] Comment on above: Performed By: #### 3 4532-2 #### [facility] [address] [place] [address] Rh Type Negative Normal [facility] Comment on above: Performed By: #### 3 4532-2 #### [facility] [address] [place] [address] ABO group Nom (Bld) O [facility] Blood group antibody screen Ql Negative [facility] Rh Nom (Bld) Negative [facility] Fungus Skin Culton 3 Fungus identified Cx Nom (Skin) Culture, Fungus Status = F No growth at 4 weeks Normal [facility] Comment on above: Performed By: #### 3 4532-2 #### [facility] [address] [place] [address] Fungus identified Cx Nom (Skin) Culture, Fungus Status = F No growth at 4 weeks Normal [facility] Comment on above: Performed By: #### 1 988-5 #### [facility] [address] [place] [address] Glucose Auto test strip (Bld ) [Mass/Vol]on 05-27-2022 Glucose [Mass/Vol] 98 mg/dL Normal 70-99 [facility] Comment on above: Performed By: #### 2 340-8 #### [facility] [address] [place] [address] Glucose [Mass/Vol] 98 mg/dL 70 - 99 mg/dL [facility] Interpretation and review of laboratory results Normal [facility] Mycobacterium Spec Culton Mycobacterium sp identified Org specific cx Nom (Unsp spec) Culture AFB Status = C No growth at 8 weeks AFB Stain Status = F No acid fast bacilli seen Normal [facility] Comment on above: Performed By: #### 1 988-5 #### [facility] [address] [place] [address] Mycobacterium sp identified Org specific cx Nom (Unsp spec) Culture AFB Status = C No growth at 8 weeks AFB Stain Status = F No acid fast bacilli seen Normal [facility] Comment on above: Performed By: #### 5 43-9 #### [facility] [address] [place] [address] Performed By: #### 1 988-5 #### [facility] [address] [facility] [place] [address] Pathology studyon 05-27-2022 Pathology study Left hip tissue, biopsy: Fibrous tissue with degenerative changes. No perivascular [...] interpretation of this case was performed at [facility]. These tests have [...] was performed at [facility], [address] [place], [place] [id number]. Microscopic examination was performed. Normal [facility] Comment on above: Performed By: #### 1 1526-1 #### [facility] [address] [place] [address] [facility] [address] [place] [address] SARS-CoV-2 (COVID-19) RNA NA A+probe Ql (Resp)on 05-27-2022 Interpretation and review of laboratory results Normal [facility] SARS-CoV-2 (COVID-19) RdRp gene STEVE+probe Ql (Resp) Not detected Not Detected [facility] SARS-CoV-2 RNA Resp Ql STEVE+p robeon 05-27-2022 SARS-CoV-2 (COVID-19) RNA STEVE+probe Ql (Resp) Not detected Normal Not Detected [facility] Comment on above: Performed By: #### 9 4500-6 #### [facility] [address] [place] [address] XR FLUORO UP TO 1 HOUR (STAT ISTICS)(NO REPORT)on 05-27-2022 XR FLUORO UP TO 1 HOUR (STATISTICS)(NO REPORT) This order has been auto-finalized and does not contain a result. Normal [facility] XR Fluoro Up To 1 [...] Self Edit Transcribed Date: 05/27/2022 14:17 Normal [facility] XR Pelvis 1-2 Viewson 2022 [...] By: Self Edit Transcribed Date: 05/27/2022 14:17 [facility] Study observation (narrative) Salima [facility] XR Pelvis 1-2 ViewsOrdered B y: Miguelangel Martinez on 05-27-2022 [employer] Work Phone: Blood type and Indirect anti body screen panel (Bld)on 05-17-2022 ABO group Nom (Bld) O Normal [facility] Comment on above: Performed By: #### 3 4532-2 #### [facility] [address] [place] [address] Rh Type Negative Normal [facility] Comment on above: Performed By: #### 3 4532-2 #### [facility] [address] [place] [address] CRP [Mass/Vol]on 05-17-2022 Anion gap [Moles/Vol] 11 mmol/L Normal 6-18 [facility] Comment on above: Order Comment: Sampl e received unlabeled or with name discrepancy. The Physician, Clinican or authorized designee has authorized the release of the results and assumes responsibility for sample identification. Performed By: #### 1 988-5 #### [facility] [address] [place] [address] Calcium [Mass/Vol] 10.9 mg/dL High 8.9-10.3 [facility] Comment on above: Order Comment: Sampl e received unlabeled or with name discrepancy. The Physician, Clinican or authorized designee has authorized the release of the results and assumes responsibility for sample identification. Performed By: #### 1 988-5 #### [facility] [address] [place] [address] Chloride [Moles/Vol] 102 mmol/L Normal 98-107 [facility] Comment on above: Order Comment: Sampl e received unlabeled or with name discrepancy. The Physician, Clinican or authorized designee has authorized the release of the results and assumes responsibility for sample identification. Performed By: #### 1 988-5 #### [facility] [address] [place] [address] CO2 [Moles/Vol] 27 mmol/L Normal 22-32 [facility] Comment on above: Order Comment: Sampl e received unlabeled or with name discrepancy. The Physician, Clinican or authorized designee has authorized the release of the results and assumes responsibility for sample identification. Performed By: #### 1 988-5 #### [facility] [address] [place] [address] Creatinine [Mass/Vol] 0.92 mg/dL Normal 0.60-1.30 [facility] Comment on above: Order Comment: Sampl e received unlabeled or with name discrepancy. The Physician, Clinican or authorized designee has authorized the release of the results and assumes responsibility for sample identification. Performed By: #### 1 988-5 #### [facility] [address] [place] [address] GFR/1.73 sq M.predicted among non-blacks MDRD (S/P/Bld) [Vol rate/Area] 65 mL/min/{1.73_m2} Normal >=60 [facility] Comment on above: Order Comment: Sampl e received unlabeled or with name discrepancy. The Physician, Clinican or authorized designee has authorized the release of the results and assumes responsibility for sample identification. Result Comment: Effe ctive February 07, 2022, calculation based on the?Chronic Kidney Disease Epidemiology Collaboration (CKD-EPI) equation refit?without adjustment for race. Performed By: #### 1 988-5 #### [facility] [address] [place] [address] Glucose [Mass/Vol] 86 mg/dL Normal 70-99 [facility] Comment on above: Order Comment: Sampl e received unlabeled or with name discrepancy. The Physician, Clinican or authorized designee has authorized the release of the results and assumes responsibility for sample identification. Performed By: #### 1 988-5 #### [facility] [address] [place] [address] Potassium [Moles/Vol] 4.6 mmol/L Normal 3.6-5.1 [facility] Comment on above: Order Comment: Sampl e received unlabeled or with name discrepancy. The Physician, Clinican or authorized designee has authorized the release of the results and assumes responsibility for sample identification. Performed By: #### 1 988-5 #### [facility] [address] [place] [address] Sodium [Moles/Vol] 140 mmol/L Normal 136-145 [facility] Comment on above: Order Comment: Sampl e received unlabeled or with name discrepancy. The Physician, Clinican or authorized designee has authorized the release of the results and assumes responsibility for sample identification. Performed By: #### 1 988-5 #### [facility] [address] [place] [address] Urea nitrogen [Mass/Vol] 36 mg/dL High 8-20 [facility] [facility] Comment on above: Order Comment: Sampl e received unlabeled or with name discrepancy. The Physician, Clinican or authorized designee has authorized the release of the results and assumes responsibility for sample identification. Performed By: #### 1 988-5 #### [facility] [address] [place] [id number] Urea nitrogen/Creatinine [Mass ratio] 39.1 mg/mg High 12.0-20.0 [facility] Comment on above: Order Comment: Sampl e received unlabeled or with name discrepancy. The Physician, Clinican or authorized designee has authorized the release of the results and assumes responsibility for sample identification. Performed By: #### 1 988-5 #### [facility] [address] [place] [id number] Hemogram and platelets WO di fferential panel (Bld)on 05-17-2022 Sed Rate 18 mm/hr Normal 0-20 [facility] Comment on above: Performed By: #### 2 4317-0 #### [facility] [address] [place] [address] 85340 MG MAMM SCREEN 3D YONI CADon 04-07-2022 MG MAMM SCREEN 3D YONI CAD Patient: BECKY PONCE Exam Date: 04/07/2022 : 1945 Gender:F Ordering : DR KERVIN OSORIO Admission #: [id number] Family : DR DORCAS AGUIRRE . Order #: [id number] CLICK HERE TO VIEW EXAM RADIOLOGY REPORT [...] Treatments None Family Cancers None LOCATION: [facility] BREAST COMPOSITION: Heterogeneously dense,which may [...] on 04/07/2022 at 10:58 Approved by: Saranya iNce MD on 04/07/2022 at 11:00 Normal [facility] CBC AUTO DIFFon 03-30-2022 BASO # 0.0 103/ul Normal 0.0-0.1 [facility] Comment on above: Performed By: #### F T3, TSH, T4 #### [facility] [address] [address] [address] Abelardo Barrett Basophils/100 WBC (Bld) 0.9 % Normal 0.2-2.0 [facility] Comment on above: Performed By: #### F T3, TSH, T4 #### [facility] [address] [address] [address] Abelardo Barrett EO # 0.1 103/ul Normal 0.0-0.7 [facility] Comment on above: Performed By: #### F T3, TSH, T4 #### [facility] [address] [place], [place] [address] Dr. Abelardo Barrett Eosinophils/100 WBC (Bld) 2.0 % Normal 0.9-7.0 [facility] Comment on above: Performed By: #### F T3, TSH, T4 #### [facility] [address] [address] [address] Abelardo Barrett Erythrocyte distribution width (RBC) [Ratio] 12.5 % Normal 11.0-15.0 [facility] Comment on above: Performed By: #### F T3, TSH, T4 #### [facility] [address] [place] [address] Dr. Abelardo Barrett Hematocrit (Bld) [Volume fraction] 37.9 % Normal 36.0-48.0 [facility] Comment on above: Performed By: #### F T3, TSH, T4 #### [facility] [address] [place] [address] Dr. Abelardo Barrett Hemoglobin (Bld) [Mass/Vol] 12.6 g/dL Normal 12.0-16.0 [facility] Comment on above: Performed By: #### F T3, TSH, T4 #### [facility] [address] [place] [address] Dr. Abelardo Barrett IG # 0.01 10e3/ul Normal 0.00-0.03 [facility] Comment on above: Performed By: #### F T3, TSH, T4 #### [facility] [address] [place] [address] Dr. Abelardo Barrett IG % 0.2 % Normal 0.0-0.5 [facility] Comment on above: Performed By: #### F T3, TSH, T4 #### [facility] [address] [place] [address] Dr. Abelardo Barrett LYMPH # 1.2 103/ul Normal 1.2-3.8 [facility] Comment on above: Performed By: #### F T3, TSH, T4 #### [facility] [address] [place] [address] Dr. Abelardo Barrett Lymphocytes/100 WBC (Bld) 26.5 % Normal 20.5-60.0 [facility] Comment on above: Performed By: #### F T3, TSH, T4 #### [facility] [address] [place] [address] Dr. Abelardo Barrett MANUAL DIFF REQ NO Normal [facility] Comment on above: Performed By: #### F T3, TSH, T4 #### [facility] [address] [place] [address] Dr. Abelardo Barrett MCH (RBC) [Entitic mass] 29.9 pg Normal 26.7-34.0 [facility] Comment on above: Performed By: #### F T3, TSH, T4 #### [facility] [address] [place] [address] Dr. Abelardo Barrett MCHC (RBC) [Mass/Vol] 33.2 g/dL Normal 29.9-35.2 [facility] Comment on above: Performed By: #### F T3, TSH, T4 #### [facility] [address] [place] [address] Dr. Abelardo Barrett MCV (RBC) [Entitic vol] 90.0 fL Normal 81.0-99.0 [facility] Comment on above: Performed By: #### F T3, TSH, T4 #### [facility] [address] [place] [address] Dr. Abelardo Barrett MONO # 0.5 103/ul Normal 0.3-0.8 [facility] Comment on above: Performed By: #### F T3, TSH, T4 #### [facility] [address] [place] [address] Dr. Abelardo Barrett Monocytes/100 WBC (Bld) 10.1 % Normal 1.7-12.0 [facility] Comment on above: Performed By: #### F T3, TSH, T4 #### [facility] [address] [place] [address] Dr. Abelardo Barrett NEUT # 2.8 103/ul Normal 1.4-6.5 [facility] Comment on above: Performed By: #### F T3, TSH, T4 #### [facility] [address] [place] [address] Dr. Abelardo Barrett Neutrophils/100 WBC (Bld) 60.3 % Normal 43.0-75.0 [facility] Comment on above: Performed By: #### F T3, TSH, T4 #### [facility] [address] [place] [address] Dr. Abelardo Barrett Platelet mean volume (Bld) [Entitic vol] 8.6 fL Critically low 9.5-13.5 [facility] Comment on above: Performed By: #### F T3, TSH, T4 #### [facility] [address] [address] [address] Abelardo Barrett PLT 248 103/ul Normal 150-450 [facility] Comment on above: Performed By: #### F T3, TSH, T4 #### [facility] [address] [address] [address] Abelardo Barrett RBC 4.21 106/ul Normal 4.20-5.40 [facility] Comment on above: Performed By: #### F T3, TSH, T4 #### [facility] [address] [address] [address] Abelardo Barrett WBC 4.6 103/ul Normal 4.0-11.0 [facility] Comment on above: Performed By: #### F T3, TSH, T4 #### [facility] [address] [place] [address] Dr. Abelardo Barrett FREE THYROXINE INDEX T7on FTI 2.73 Normal 1.30-4.50 [facility] Comment on above: Performed By: #### C MP, LIPID #### [facility] [address] [address] [address] Abelardo Barrett T3U 35.0 % Normal 30.0-39.0 [facility] Comment on above: Performed By: #### C MP, LIPID #### [facility] [address] [place] [address] Dr. Abelardo Barrett T4 [Mass/Vol] 7.80 ug/dL Normal 4.80-13.90 [facility] Comment on above: Performed By: #### C MP, LIPID #### [facility] [address] [place] [address] Dr. Abelardo Barrett GLYCOHEMOGLOBIN A1Con 2021 ADA RECOMMENDATION SEE BELOW Normal [facility] [place] Comment on above: Result Comment: ADA RECOMMENDED LIMIT 4.0 - 6.0 ADA THERAPEUTIC TARGET < 7.0 ACTION SUGGESTED > 7.0 Performed By: #### C MP, LIPID #### [facility] [address] [place] [address] Dr. Abelardo Barrett Glucose [Mass/Vol] 123 mg/dL Normal [facility] [place] Comment on above: Performed By: #### C MP, LIPID #### [facility] [address] [address] [address] Abelardo Barrett HbA1c (Bld) [Mass fraction] 5.9 % Normal 4.5-6.2 [facility] Comment on above: Performed By: #### C MP, LIPID #### [facility] [address] [place], [place] [id number] Dr. Abelardo Barrett IRONon 03-30-2022 Iron [Mass/Vol] 94.0 ug/dL Normal 50.0-170.0 [facility] Comment on above: Performed By: #### C MP, LIPID #### [facility] [address] [place] [address] Dr. Abelardo Barrett LIPID PROFILEon 03-30-2022 CHOL-HDL RATIO NORM SEE BELOW Normal [facility] Comment on above: Result Comment: 3.3 - 4.4 LOW RISK 4.4 - 7.1 AVERAGE RISK 7.1 - 11.0 MODERATE RISK >11.0 HIGH RISK Performed By: #### C MP, LIPID #### [facility] [address] [place] [address] Dr. Abelardo Barrett Cholesterol [Mass/Vol] 186 mg/dL Normal <=200 [facility] Comment on above: Performed By: #### C MP, LIPID #### [facility] [address] [place] [address] Dr. Abelardo Barrett Cholesterol in HDL [Mass/Vol] 86 mg/dL Critically high 40-60 [facility] Comment on above: Performed By: #### C MP, LIPID #### [facility] [address] [address] [address] Abelardo Barrett Cholesterol in LDL [Mass/Vol] 88.8 mg/dL Normal [facility] Comment on above: Performed By: #### C MP, LIPID #### [facility] [address] [place] [address] Dr. Abelardo Barrett Cholesterol.total/Ch olesterol in HDL [Mass ratio] 2.2 {ratio} Normal [facility] Comment on above: Performed By: #### C MP, LIPID #### [facility] [address] [address] [address] Abelardo Barrett HDL NORMAL > or = 60 mg/dl - LO W CARDIOVASCULAR RISK <40 mg/dl - HIGH CARDIOVASCULAR RISK Normal [facility] Comment on above: Performed By: #### C MP, LIPID #### [facility] [address] [address] [address] Abelardo Barrett LDL CALC NORMAL SEE BELOW Normal [facility] Comment on above: Result Comment: <100 mg/dl OPTIMAL 100 - 129 mg/dl NEAR OR ABOVE OPTIMAL 130 - 159 mg/dl BORDERLINE HIGH 160 - 189 mg/dl HIGH >190 mg/dl VERY HIGH Performed By: #### C MP, LIPID #### [facility] [address] [address] [address] Abelardo Barrett Triglyceride [Mass/Vol] 56 mg/dL Normal <=150 [facility] Comment on above: Performed By: #### C MP, LIPID #### [facility] [address] [address] [address] Abelardo Barrett VLDL CALC 11.2 mg/dL Normal [facility] Comment on above: Performed By: #### C MP, LIPID #### [facility] [address] [address] [address] Abelardo Barrett PROF 14(COMP METB)on 022 Albumin [Mass/Vol] 3.7 g/dL Normal 3.4-5.0 [facility] [place] Comment on above: Performed By: #### C MP, LIPID #### [facility] [address] [address] [address] Abelardo Barrett Albumin/Globulin [Mass ratio] 1.0 {ratio} Normal [facility] Comment on above: Performed By: #### C MP, LIPID #### [facility] [address] [address] [address] Abelardo Barrett ALP [Catalytic activity/Vol] 59 U/L Normal 46-116 [facility] Comment on above: Performed By: #### C MP, LIPID #### [facility] [address] [address] [address] Abelardo Barrett ALT [Catalytic activity/Vol] 30 U/L Normal 14-59 [facility] Comment on above: Performed By: #### C MP, LIPID #### [facility] [address] [address] [address] Abelardo Barrett Anion gap [Moles/Vol] 9.0 mmol/L Normal [facility] Comment on above: Performed By: #### C MP, LIPID #### [facility] [address] [address] [address] Abelardo Barrett AST [Catalytic activity/Vol] 17 U/L Normal 15-37 [facility] Comment on above: Performed By: #### C MP, LIPID #### [facility] [address] [place] [address] Dr. Abelardo Barrett Bilirubin [Mass/Vol] 0.6 mg/dL Normal 0.2-1.0 [facility] Comment on above: Performed By: #### C MP, LIPID #### [facility] [address] [place] [address] Dr. Abelardo Barrett Calcium [Mass/Vol] 9.1 mg/dL Normal 8.5-10.1 [facility] [place] Comment on above: Performed By: #### C MP, LIPID #### [facility] [address] [place] [address] Dr. Abelardo Barrett Chloride [Moles/Vol] 104 mmol/L Normal 98-107 [facility] Comment on above: Performed By: #### C MP, LIPID #### [facility] [address] [place] [address] Dr. Abelardo Barrett CO2 [Moles/Vol] 30.6 mmol/L Normal 21.0-32.0 [facility] Comment on above: Performed By: #### C MP, LIPID #### [facility] [address] [place] [address] Dr. Abelardo Barrett Creatinine [Mass/Vol] 0.85 mg/dL Normal 0.55-1.02 [facility] Comment on above: Performed By: #### C MP, LIPID #### [facility] [address] [address] [address] Abelardo Barrett EGFR-AF SAUDI ARABIAN >60 Normal >=60 [facility] Comment on above: Performed By: #### C MP, LIPID #### [facility] [address] [address] [address] Abelardo Barrett EGFR-NON AF SAUDI ARABIAN >60 Normal >=60 [facility] Comment on above: Performed By: #### C MP, LIPID #### [facility] [address] [address] [address] Abelardo Barrett Globulin (S) [Mass/Vol] 3.6 g/dL Normal [facility] Comment on above: Performed By: #### C MP, LIPID #### [facility] [address] [place] [address] Dr. Abelardo Barrett Glucose [Mass/Vol] 93 mg/dL Normal 74-106 [facility] [place] Comment on above: Performed By: #### C MP, LIPID #### [facility] [address] [address] [address] Abelardo Barrett Potassium [Moles/Vol] 4.6 mmol/L Normal 3.5-5.1 [facility] Comment on above: Performed By: #### C MP, LIPID #### [facility] [address] [place] [address] Dr. Abelardo Barrett Protein [Mass/Vol] 7.3 g/dL Normal 6.4-8.2 [facility] Comment on above: Performed By: #### C MP, LIPID #### [facility] [address] [place] [address] Dr. Abelardo Barrett Sodium [Moles/Vol] 139 mmol/L Normal 136-145 [facility] Comment on above: Performed By: #### C MP, LIPID #### [facility] [address] [address] [address] Abelardo Barrett Urea nitrogen [Mass/Vol] 33.0 mg/dL Critically high 7.0-18.0 [facility] Comment on above: Performed By: #### C MP, LIPID #### [facility] [address] [place] [address] Dr. Abelardo Barrett Urea nitrogen/Creatinine [Mass ratio] 38.8 mg/mg Normal [facility] Comment on above: Performed By: #### C MP, LIPID #### [facility] [address] [place] [address] Dr. Abelardo Barrett TSHon 03-30-2022 TSH Qn m[IU]/L Critically low 0.358-3.740 [facility] Comment on above: Performed By: #### C MP, LIPID #### [facility] [address] [place] [address] Dr. Abelardo Barrett T4 LABCORPon 01-16-2022 T4 [Mass/Vol] 8.3 ug/dL Normal 4.5-12.0 [facility] Comment on above: Performed By: #### C MP, LIPID #### [facility] [address] [place] [address] Dr. Abelardo Barrett FREE T3on 01-15-2022 FREE T3 3.34 pg/mlL Normal 2.18-3.98 [facility] Comment on above: Performed By: #### C MP, LIPID #### [facility] [address] [address] [address] Abelardo Barrett TSHon 01-15-2022 TSH Qn m[IU]/L Critically low 0.358-3.740 [facility] Comment on above: Performed By: #### C MP, LIPID #### [facility] [address] [place] [address] Dr. Abelardo Barrett BLOOD GASES BTYon 12-14-2021 02 MODE ROOM AIR Normal [facility] Comment on above: Performed By: #### A BG #### [facility] [address] [place] [address] Dr. Abelardo Barrett ALLENDeisy TEST Positive Normal [facility] Comment on above: Performed By: #### A BG #### [facility] [address] [place] [address] Dr. Abelardo Barrett Base excess Calc (Bld) [Moles/Vol] 0.7 mmol/L Normal -2.0-2.0 [facility] Comment on above: Performed By: #### A BG #### [facility] [address] [address] [address] Abelardo Barrett BIPAP PRESSURE Normal [facility] Comment on above: Performed By: #### A BG #### [facility] [address] [address] [address] Abelardo Barrett CO2 [Moles/Vol] 51.6 mmol/L Critically high 23.0-28.0 [facility] Comment on above: Performed By: #### A BG #### [facility] [address] [address] [address] Abelardo Barrett CPAP [facility] Comment on above: Performed By: #### A BG #### [facility] [address] [place] [address] Dr. Abelardo Barrett FIO2 [facility] Comment on above: Performed By: #### A BG #### [facility] [address] [place] [address] Dr. Abelardo Barrett HCO3 (Bld) [Moles/Vol] 25.0 mmol/L Normal 22.0-26.0 [facility] Comment on above: Performed By: #### A BG #### [facility] [address] [place] [address] Dr. Abelardo Barrett LPM [facility] Comment on above: Performed By: #### A BG #### [facility] [address] [place] [address] Dr. Abelardo Barrett MINUTE VOLUME Normal [facility] Comment on above: Performed By: #### A BG #### [facility] [address] [place] [address] Dr. Abelardo Barrett Oxygen (Bld) [Partial pressure] 83.4 mm[Hg] Normal 80.0-100.0 [facility] Comment on above: Performed By: #### A BG #### [facility] [address] [place] [address] Dr. Abelardo Barrett Oxygen saturation in Blood 97.1 % Normal 95.0-100.0 [facility] Comment on above: Performed By: #### A BG #### [facility] [address] [address] [address] Abelardo Barrett PCO2 39.3 mmHg Normal 35.0-45.0 [facility] Comment on above: Performed By: #### A BG #### [facility] [address] [address] [address] Abelardo Barrett PEEP [facility] Comment on above: Performed By: #### A BG #### [facility] [address] [address] [address] Abelardo Barrett pH (Bld) 7.415 [pH] Normal 7.350-7.450 [facility] Comment on above: Performed By: #### A BG #### [facility] [address] [address] [address] Abelardo Barrett [facility] Comment on above: Performed By: #### A BG #### [facility] [address] [address] [address] Abelardo Barrett [facility] Comment on above: Performed By: #### A BG #### [facility] [address] [address] [address] Abelardo Barrett PUNCTURE SITE RR [facility] Comment on above: Performed By: #### A BG #### [facility] [address] [address] [address] Abelardo Barrett RATE [facility] Comment on above: Performed By: #### A BG #### [facility] [address] [address] [address] Abelardo Barrett VENT MODE [facility] Comment on above: Performed By: #### A BG #### [facility] [address] [address] [address] Abelardo Barrett [facility] Comment on above: Performed By: #### A BG #### [facility] [address] [address] [address] Abelardo Barrett Cardiovascular Lab Reporton 11-19-2021 Cardiovascular Lab Report [facility] Patient Name: [facility] MR #: [id number] Physician: Jian Dean, Department of M.D. Medicine Service Date: 11/19/2021 Division of Birthdate: 1945 Cardiology Room #: [facility] [address] [place] [place] [address] Cardiovascular Laboratory Report FINAL IMPRESSIONS: 1. Angiographically nonobstructive coronary arteries. 2. Normal global left ventricular systolic function by noninvasive imaging. RECOMMENDATIONS: 1. Consider alternate etiologies for the patient's shortness of breath, mainly pulmonary; pulmonary function tests have been ordered. 2. Aggressive cardiovascular risk factor modification. 3. Follow up with Dr. Dean in the next 3-4 weeks in the [place] office. 4. Follow up with Dr. Aguirre [...] the left radial artery was obtained. A 6-Swedish sheath was inserted without difficulty. Bilateral selective coronary angiography was performed using 5-Swedish JR4 and JL4 catheters. After reviewing the images, it was elected to conclude the procedure. All catheters were removed. The radial sheath was removed with application of a TR band per protocol to achieve optimal hemostasis. Overall, the patient tolerated the procedure well. There were no overt complications. She was to be transferred to the [facility] area in stable condition. FINDINGS: Hemodynamics. AO [...] Dean M.D. Date Trans: 11/19/2021 02:08 P/mmo [id number] cc: Dorcas Aguirre M.D. [address] [place] [facility] [id number] Normal [facility]-30 SARS-CoV-2 (COVID-19) RNA STEVE+probe Ql (Unsp spec) Not detected Normal NOT DETECTED [facility] Comment on above: Result Comment: This test is not yet approved or cleared by the [place] FDA. When there are no FDA-approved or cleared tests available, and other criteria are met, FDA can make tests available under an emergency access mechanism called an Emergency Use Authorization (EUA). The EUA for this test is supported by the [place] of Health and Human Service's (HHS's) declaration [...] By: #### F T3, TSH, T4 #### [facility] [address] [place] [address] Dr. Abelardo Barrett CBC AUTO DIFFon 11-14-2021 BASO # 0.0 103/ul Normal 0.0-0.1 [facility] Comment on above: Performed By: #### F T3, TSH, T4 #### [facility] [address] [place] [address] Dr. Abelardo Barrett Basophils/100 WBC (Bld) 0.8 % Normal 0.2-2.0 [facility] Comment on above: Performed By: #### F T3, TSH, T4 #### [facility] Laboratory [address] [place] [address] Dr. Abelardo Barrett EO # 0.1 103/ul Normal 0.0-0.7 [facility] Comment on above: Performed By: #### F T3, TSH, T4 #### [facility] Laboratory [address] [place] [address] Dr. Abelardo Barrett Eosinophils/100 WBC (Bld) 2.1 % Normal 0.9-7.0 [facility] Comment on above: Performed By: #### F T3, TSH, T4 #### [facility] Laboratory [address] [place] [address] Dr. Abelardo Barrett Erythrocyte distribution width (RBC) [Ratio] 12.0 % Normal 11.0-15.0 [facility] Comment on above: Performed By: #### F T3, TSH, T4 #### [facility] Laboratory [address] [place] [address] Dr. Abelardo Barrett Hematocrit (Bld) [Volume fraction] 36.2 % Normal 36.0-48.0 [facility] Comment on above: Performed By: #### F T3, TSH, T4 #### [facility] [address] [place] [address] Dr. Abelardo Barrett Hemoglobin (Bld) [Mass/Vol] 11.6 g/dL Critically low 12.0-16.0 [facility] Comment on above: Performed By: #### F T3, TSH, T4 #### [facility] Laboratory [address] [place] [address] Dr. Abelardo Barrett IG # 0.01 10e3/ul Normal 0.00-0.03 [facility] Comment on above: Performed By: #### F T3, TSH, T4 #### [facility] Laboratory [address] [address] [address] Abelardo Barrett IG % 0.2 % Normal 0.0-0.5 [facility] Comment on above: Performed By: #### F T3, TSH, T4 #### [facility] [address] [address] [address] Abelardo Barrett LYMPH # 0.8 103/ul Critically low 1.2-3.8 [facility] Comment on above: Performed By: #### F T3, TSH, T4 #### [facility] [address] [address] [address] Abelardo Barrett Lymphocytes/100 WBC (Bld) 15.8 % Critically low 20.5-60.0 [facility] Comment on above: Performed By: #### F T3, TSH, T4 #### [facility] Laboratory [address] [address] [address] Abelardo Barrett MANUAL DIFF REQ NO Normal [facility] Comment on above: Performed By: #### F T3, TSH, T4 #### [facility] [address] [address] [address] Abelardo Barrett MCH (RBC) [Entitic mass] 30.2 pg Normal 26.7-34.0 [facility] Comment on above: Performed By: #### F T3, TSH, T4 #### [facility] Laboratory [address] [address] [address] Abelardo Barrett MCHC (RBC) [Mass/Vol] 32.0 g/dL Normal 29.9-35.2 [facility] Comment on above: Performed By: #### F T3, TSH, T4 #### [facility] [address] [address] [address] Abelardo Barrett MCV (RBC) [Entitic vol] 94.3 fL Normal 81.0-99.0 [facility] Comment on above: Performed By: #### F T3, TSH, T4 #### [facility] [address] [address] [address] Abelardo Barrett MONO # 0.4 103/ul Normal 0.3-0.8 [facility] Comment on above: Performed By: #### F T3, TSH, T4 #### [facility] [address] [place] [address] Dr. Abelardo Barrett Monocytes/100 WBC (Bld) 8.3 % Normal 1.7-12.0 [facility] Comment on above: Performed By: #### F T3, TSH, T4 #### [facility] [address] [place] [address] Dr. Abelardo Barrett NEUT # 3.8 103/ul Normal 1.4-6.5 [facility] Comment on above: Performed By: #### F T3, TSH, T4 #### [facility] [address] [place] [address] Dr. Abelardo Barrett Neutrophils/100 WBC (Bld) 72.8 % Normal 43.0-75.0 [facility] Comment on above: Performed By: #### F T3, TSH, T4 #### [facility] [address] [place] [address] Dr. Abelardo Barrett Platelet mean volume (Bld) [Entitic vol] 8.6 fL Critically low 9.5-13.5 [facility] Comment on above: Performed By: #### F T3, TSH, T4 #### [facility] [address] [place] [address] Dr. Abelardo Barrett PLT 244 103/ul Normal 150-450 [facility] Comment on above: Performed By: #### F T3, TSH, T4 #### [facility] [address] [place] [address] Dr. Abelardo Barrett RBC 3.84 106/ul Critically low 4.20-5.40 [facility] Comment on above: Performed By: #### F T3, TSH, T4 #### [facility] [address] [place] [address] Dr. Abelardo Barrett WBC 5.2 103/ul Normal 4.0-11.0 [facility] Comment on above: Performed By: #### F T3, TSH, T4 #### [facility] [address] [place] [address] Dr. Abelardo Barrett PROF CHEM 8 (BAS METB)on Anion gap [Moles/Vol] 12.0 mmol/L Normal [facility] Comment on above: Performed By: #### B MP, HSTROPN #### [facility] [address] [place] [address] Dr. Abelardo Barrett Calcium [Mass/Vol] 9.2 mg/dL Normal 8.5-10.1 [facility] Comment on above: Performed By: #### B MP, HSTROPN #### [facility] [address] [address] [address] Abelardo Barrett Chloride [Moles/Vol] 101 mmol/L Normal 98-107 [facility] Comment on above: Performed By: #### B VIBHA, HSTROPN #### [facility] [address] [place] [address] Dr. Abelardo Barrett CO2 [Moles/Vol] 26.3 mmol/L Normal 21.0-32.0 [facility] Comment on above: Performed By: #### B MP, HSTROPN #### [facility] [address] [address] [address] Abelardo Barrett Creatinine [Mass/Vol] 0.90 mg/dL Normal 0.55-1.02 [facility] Comment on above: Performed By: #### B VIBHA, HSTROPN #### [facility] [address] [address] [address] Abelardo Barrett EGFR-AF SAUDI ARABIAN >60 Normal >=60 [facility] Comment on above: Performed By: #### B MP, HSTROPN #### [facility] [address] [address] [address] Abelardo Barrett EGFR-NON AF SAUDI ARABIAN >60 Normal >=60 [facility] Comment on above: Performed By: #### B MP, HSTROPN #### [facility] [address] [address] [address] Abelardo Barrett Glucose [Mass/Vol] 101 mg/dL Normal 74-106 [facility] Comment on above: Performed By: #### B MP, HSTROPN #### [facility] [address] [address] [address] Abelardo Barrett Potassium [Moles/Vol] 4.3 mmol/L Normal 3.5-5.1 [facility] Comment on above: Performed By: #### B MP, HSTROPN #### [facility] [address] [address] [address] Abelardo Barrett Sodium [Moles/Vol] 135 mmol/L Critically low 136-145 [facility] Comment on above: Performed By: #### B MP, HSTROPN #### [facility] [address] [address] [address] Abelardo Barrett Urea nitrogen [Mass/Vol] 34.0 mg/dL Critically high 7.0-18.0 [facility] Comment on above: Performed By: #### B MP, HSTROPN #### [facility] [address] [address] [address] Abelardo Barrett Urea nitrogen/Creatinine [Mass ratio] 37.8 mg/mg Normal [facility] Comment on above: Performed By: #### B MP, HSTROPN #### [facility] [address] [place] [address] Dr. Abelardo Barrett TROPONIN, HIGH SENSITIVITYon 11-14-2021 HSTROP 5.8 pg/mL Normal 4.0-51.3 [facility] Comment on above: Result Comment: CUT- OFF POINTS HAVE BEEN ESTABLISHED BASED ON THE FOURTH UNIVERSAL DEFINITIONS OF MYOCARDIAL INFARCTION. THE UPPER REFERENCE LIMIT (URL) OF TROPONIN, DEFINED THE 99TH PERCENTILE OF cTnI DISTRIBUTION IN A REFERENCE POPULATION, HAS BEEN CONFIRMED THE DECISION THRESHOLD FOR TX DIAGNOSIS. Performed By: #### C MP, LIPID #### [facility] [address] [place] [address] Dr. Abelardo Barrett HSTROP 5.8 pg/mL Normal 4.0-51.3 [facility] Comment on above: Result Comment: CUT- OFF POINTS HAVE BEEN ESTABLISHED BASED ON THE FOURTH UNIVERSAL DEFINITIONS OF MYOCARDIAL INFARCTION. THE UPPER REFERENCE LIMIT (URL) OF TROPONIN, DEFINED THE 99TH PERCENTILE OF cTnI DISTRIBUTION IN A REFERENCE POPULATION, HAS BEEN CONFIRMED THE DECISION THRESHOLD FOR TX DIAGNOSIS. Performed By: #### B MP, HSTROPN #### [facility] [address] [address] [address] Abelardo Barrett XR CHEST 1 Von 11-14-2021 XR CHEST 1 V FRONTAL CHEST; 11/14/2021 11:40 AM EDT Clinical History:Syncope Comparison: None available . AP portable upright film. Cardiac leads. Osseous structures are grossly intact. Cardiac and mediastinal silhouettes are unremarkable. The bharathi are symmetric. No infiltrate or effusion. No failure. Granuloma left base. Lungs are well expanded. IMPRESSION: 1. No evidence of acute process. Electronically authenticated by: LETICIA HOYT Date: 2021-11-14 12:45 Normal [facility] CBC AUTO DIFFon 10-27-2021 BASO # 0.1 103/ul Normal 0.0-0.1 [facility] Comment on above: Performed By: #### C BC #### [facility] [address] [place] [address] Dr. Abelardo Barrett Basophils/100 WBC (Bld) 1.1 % Normal 0.2-2.0 [facility] Comment on above: Performed By: #### C BC #### [facility] [address] [place] [address] Dr. Abelardo Barrett EO # 0.2 103/ul Normal 0.0-0.7 [facility] Comment on above: Performed By: #### C BC #### [facility] [address] [address] [address] Abelardo Barrett Eosinophils/100 WBC (Bld) 3.9 % Normal 0.9-7.0 [facility] Comment on above: Performed By: #### C BC #### [facility] [address] [place] [address] Dr. Abelardo Barrett Erythrocyte distribution width (RBC) [Ratio] 12.1 % Normal 11.0-15.0 [facility] Comment on above: Performed By: #### C BC #### [facility] [address] [place] [address] Dr. Abelardo Barrett Hematocrit (Bld) [Volume fraction] 33.6 % Critically low 36.0-48.0 [facility] Comment on above: Performed By: #### C BC #### [facility] [address] [place] [address] Dr. Abelardo Barrett Hemoglobin (Bld) [Mass/Vol] 11.1 g/dL Critically low 12.0-16.0 [facility] Comment on above: Performed By: #### C BC #### [facility] [address] [place] [address] Dr. Abelardo Barrett IG # 0.01 10e3/ul Normal 0.00-0.03 [facility] Comment on above: Performed By: #### C BC #### [facility] [address] [place] [address] Dr. Abelardo Barrett IG % 0.2 % Normal 0.0-0.5 [facility] Comment on above: Performed By: #### C BC #### [facility] [address] [place] [address] Dr. Abelardo Barrett LYMPH # 1.3 103/ul Normal 1.2-3.8 [facility] Comment on above: Performed By: #### C BC #### [facility] [address] [place] [address] Dr. Abelardo Barrett Lymphocytes/100 WBC (Bld) 28.5 % Normal 20.5-60.0 [facility] Comment on above: Performed By: #### C BC #### [facility] [address] [place] [address] Dr. Abelardo Barrett MANUAL DIFF REQ NO Normal [facility] Comment on above: Performed By: #### C BC #### [facility] [address] [place] [address] Dr. Abelardo Barrett MCH (RBC) [Entitic mass] 30.8 pg Normal 26.7-34.0 [facility] Comment on above: Performed By: #### C BC #### [facility] [address] [place] [address] Dr. Abelardo Barrett MCHC (RBC) [Mass/Vol] 33.0 g/dL Normal 29.9-35.2 [facility] Comment on above: Performed By: #### C BC #### [facility] [address] [address] [address] Abelardo Barrett MCV (RBC) [Entitic vol] 93.3 fL Normal 81.0-99.0 [facility] Comment on above: Performed By: #### C BC #### [facility] [address] [address] [address] Abelardo Barrett MONO # 0.5 103/ul Normal 0.3-0.8 [facility] Comment on above: Performed By: #### C BC #### [facility] [address] [address] [address] Abelardo Barrett Monocytes/100 WBC (Bld) 11.1 % Normal 1.7-12.0 [facility] Comment on above: Performed By: #### C BC #### [facility] [address] [address] [address] Abelardo Barrett NEUT # 2.5 103/ul Normal 1.4-6.5 [facility] Comment on above: Performed By: #### C BC #### [facility] [address] [address] [address] Abelardo Barrett Neutrophils/100 WBC (Bld) 55.2 % Normal 43.0-75.0 [facility] Comment on above: Performed By: #### C BC #### [facility] [address] [address] [address] Abelardo Barrett Platelet mean volume (Bld) [Entitic vol] 9.1 fL Critically low 9.5-13.5 [facility] Comment on above: Performed By: #### C BC #### [facility] [address] [address] [address] Abelardo Barrett PLT 241 103/ul Normal 150-450 [facility] Comment on above: Performed By: #### C BC #### [facility] [address] [address] [address] Abelardo Barrett RBC 3.60 106/ul Critically low 4.20-5.40 [facility] Comment on above: Performed By: #### C BC #### [facility] [address] [place], [place] [address] Dr. Abelardo Barrett WBC 4.6 103/ul Normal 4.0-11.0 [facility] Comment on above: Performed By: #### C BC #### [facility] [address] [place], [place] [address] Dr. Abelardo Barrett ECHOCARDIO M/2D COMPLETEon 0 10-27-2021 ECHOCARDIO M/2D COMPLETE Patient: BECKY PONCE Exam Date: 10/27/2021 : 1945 Gender:F Ordering : DR DORCAS AGUIRRE . Admission #: [id number] Family : Order #: [id number] CLICK HERE TO VIEW EXAM ECHOCARDIOGRAM REPORT [...] Area(A4C): 17.20 cm2 Left Atrium Systolic Volume(A2C): 89546 mm3 Left Atrium Systolic Volume(A4C): 48815 mm3 Mitral Valve MV E to A Ratio: 0.80 Deceleration Hall: 2480 mm/s2 Mitral Valve A-Wave Peak Velocity: [...] M.D. on 10/27/2021 at 19:38 Normal [facility] FREE T3on 10-27-2021 FREE T3 4.10 pg/mlL Critically high 2.18-3.98 [facility] Comment on above: Performed By: #### F T3, TSH, T4 #### [facility] [address] [address] [address] Abelardo Barrett GLYCOHEMOGLOBIN A1Con 2021 ADA RECOMMENDATION SEE BELOW Normal [facility] [place] Comment on above: Result Comment: ADA RECOMMENDED LIMIT 4.0 - 6.0 ADA THERAPEUTIC TARGET < 7.0 ACTION SUGGESTED > 7.0 Performed By: #### F T3, TSH, T4 #### [facility] [address] [address] [address] Abelardo Barrett Glucose [Mass/Vol] 123 mg/dL Normal [facility] [place] Comment on above: Performed By: #### F T3, TSH, T4 #### [facility] [address] [address] [address] Abelardo Barrett HbA1c (Bld) [Mass fraction] 5.9 % Normal 4.5-6.2 [facility] Comment on above: Performed By: #### F T3, TSH, T4 #### [facility] [address] [place] [address] Dr. Abelardo Barrett IRONon 10-27-2021 Iron [Mass/Vol] 63.0 ug/dL Normal 50.0-170.0 [facility] Comment on above: Performed By: #### C MP, LIPID #### [facility] [address] [place] [address] Dr. Abelardo Barrett LIPID PROFILEon 10-27-2021 CHOL-HDL RATIO NORM SEE BELOW Normal [facility] Comment on above: Result Comment: 3.3 - 4.4 LOW RISK 4.4 - 7.1 AVERAGE RISK 7.1 - 11.0 MODERATE RISK >11.0 HIGH RISK Performed By: #### C MP, LIPID #### [facility] [address] [place] [address] Dr. Abelardo Barrett Cholesterol [Mass/Vol] 163 mg/dL Normal <=200 [facility] Comment on above: Performed By: #### C MP, LIPID #### [facility] [address] [place] [address] Dr. Abelardo Barrett Cholesterol in HDL [Mass/Vol] 74 mg/dL Critically high 40-60 [facility] Comment on above: Performed By: #### C MP, LIPID #### [facility] [address] [address] [address] Abelardo Barrett Cholesterol in LDL [Mass/Vol] 79.2 mg/dL Normal [facility] Comment on above: Performed By: #### C MP, LIPID #### [facility] [address] [place] [address] Dr. Abelardo Barrett Cholesterol.total/Ch olesterol in HDL [Mass ratio] 2.2 {ratio} Normal [facility] Comment on above: Performed By: #### C MP, LIPID #### [facility] [address] [address] [address] Abelardo Barrett HDL NORMAL > or = 60 mg/dl - LO W CARDIOVASCULAR RISK <40 mg/dl - HIGH CARDIOVASCULAR RISK Normal [facility] Comment on above: Performed By: #### C MP, LIPID #### [facility] [address] [place] [address] Dr. Abelardo Barrett LDL CALC NORMAL SEE BELOW Normal [facility] Comment on above: Result Comment: <100 mg/dl OPTIMAL 100 - 129 mg/dl NEAR OR ABOVE OPTIMAL 130 - 159 mg/dl BORDERLINE HIGH 160 - 189 mg/dl HIGH >190 mg/dl VERY HIGH Performed By: #### C MP, LIPID #### [facility] [address] [place] [address] Dr. Abelardo Barrett Triglyceride [Mass/Vol] 49 mg/dL Normal <=150 [facility] Comment on above: Performed By: #### C MP, LIPID #### [facility] [address] [place] [address] Dr. Abelardo Barrett VLDL CALC 9.8 mg/dL Normal [facility] Comment on above: Performed By: #### C MP, LIPID #### [facility] [address] [place] [address] Dr. Abelardo Barrett NM STRESS/REST MULTIon 10-27 NM STRESS/REST MULTI Patient: ANKIT PONCE. Exam Date: 10/27/2021 : 1945 Gender:F Ordering : DR DORCAS AGUIRRE . Admission #: [id number] Family : Order #: [id number] CLICK HERE TO VIEW EXAM RADIOLOGY REPORT [...] anteroseptal. Basal inferoseptal. Mid-anteroseptal. Mid-inferoseptal. Apical septal. [place]. SIZE: Large (5 or more segments). SEVERITY: Moderate. TYPE: Mixed. WALL MOTION: Normal. Basal inferoseptal. Mid-anterior. Mid-anteroseptal. [place]. LV SIZE: Normal. 63 mL. TID / [...] MD on 10/27/2021 at 12:10 Normal [facility] PROF 14(COMP METB)on 022 Albumin [Mass/Vol] 3.2 g/dL Critically low 3.4-5.0 [facility] Comment on above: Performed By: #### C MP, LIPID #### [facility] [address] [place] [address] Dr. Abelardo Barrett Albumin/Globulin [Mass ratio] 0.9 {ratio} Normal [facility] Comment on above: Performed By: #### C MP, LIPID #### [facility] [address] [place] [address] Dr. Abelardo Barrett ALP [Catalytic activity/Vol] 50 U/L Normal 46-116 [facility] Comment on above: Performed By: #### C MP, LIPID #### [facility] [address] [place] [address] Dr. Abelardo Barrett ALT [Catalytic activity/Vol] 38 U/L Normal 14-59 [facility] Comment on above: Performed By: #### C MP, LIPID #### [facility] [address] [place] [address] Dr. Abelardo Barrett Anion gap [Moles/Vol] 13.4 mmol/L Normal [facility] Comment on above: Performed By: #### C MP, LIPID #### [facility] [address] [place] [address] Dr. Abelardo Barrett AST [Catalytic activity/Vol] 27 U/L Normal 15-37 [facility] Comment on above: Performed By: #### C MP, LIPID #### [facility] [address] [place] [address] Dr. Abelardo Barrett Bilirubin [Mass/Vol] 0.4 mg/dL Normal 0.2-1.0 [facility] Comment on above: Performed By: #### C MP, LIPID #### [facility] [address] [place] [address] Dr. Abelardo Barrett Calcium [Mass/Vol] 8.6 mg/dL Normal 8.5-10.1 [facility] [place] Comment on above: Performed By: #### C MP, LIPID #### [facility] [address] [place] [address] Dr. Abelardo Barrett Chloride [Moles/Vol] 107 mmol/L Normal 98-107 [facility] Comment on above: Performed By: #### C MP, LIPID #### [facility] [address] [place] [address] Dr. Abelardo Barrett CO2 [Moles/Vol] 24.7 mmol/L Normal 21.0-32.0 [facility] Comment on above: Performed By: #### C MP, LIPID #### [facility] [address] [address] [address] Abelardo Barrett Creatinine [Mass/Vol] 0.75 mg/dL Normal 0.55-1.02 [facility] Comment on above: Performed By: #### C MP, LIPID #### [facility] [address] [address] [address] Abelardo Barrett EGFR-AF SAUDI ARABIAN >60 Normal >=60 [facility] Comment on above: Performed By: #### C MP, LIPID #### [facility] [address] [address] [address] Abelardo Barrett EGFR-NON AF SAUDI ARABIAN >60 Normal >=60 [facility] Comment on above: Performed By: #### C MP, LIPID #### [facility] [address] [address] [address] Abelardo Barrett Globulin (S) [Mass/Vol] 3.4 g/dL Normal [facility] Comment on above: Performed By: #### C MP, LIPID #### [facility] [address] [address] [address] Abelardo Barrett Glucose [Mass/Vol] 92 mg/dL Normal 74-106 [facility] Comment on above: Performed By: #### C MP, LIPID #### [facility] [address] [address] [address] Abelardo Barrett Potassium [Moles/Vol] 4.1 mmol/L Normal 3.5-5.1 [facility] Comment on above: Performed By: #### C MP, LIPID #### [facility] [address] [address] [address] Abelardo Barrett Protein [Mass/Vol] 6.6 g/dL Normal 6.4-8.2 [facility] Comment on above: Performed By: #### C MP, LIPID #### [facility] [address] [address] [address] Abelardo Barrett Sodium [Moles/Vol] 141 mmol/L Normal 136-145 [facility] Comment on above: Performed By: #### C MP, LIPID #### [facility] [address] [address] [address] Abelardo Barrett Urea nitrogen [Mass/Vol] 29.0 mg/dL Critically high 7.0-18.0 [place] [facility] Comment on above: Performed By: #### C MP, LIPID #### [facility] [address] [address] [address] Abelardo Barrett Urea nitrogen/Creatinine [Mass ratio] 38.7 mg/mg Normal [facility] Comment on above: Performed By: #### C MP, LIPID #### [facility] [address] [place] [address] Dr. Abelardo Barrett T4on 10-27-2021 T4 [Mass/Vol] 9.40 ug/dL Normal 4.80-13.90 [facility] Comment on above: Performed By: #### F T3, TSH, T4 #### [facility] [address] [place] [address] Dr. Abelardo Barrett TSHon 10-27-2021 TSH Qn m[IU]/L Critically low 0.358-3.740 [facility] Comment on above: Performed By: #### F T3, TSH, T4 #### [facility] [address] [place] [address] Dr. Abelardo Barrett T4 [facility]on 10-01-2021 T4 [Mass/Vol] 9.4 ug/dL Normal 4.5-12.0 [facility] Comment on above: Performed By: #### T 4LC #### [facility] [address] [place] [address] Dr. Abelardo Barrett FREE T3on 09-30-2021 FREE T3 4.05 pg/mlL Critically high 2.18-3.98 [facility] Comment on above: Performed By: #### F T3, TSH, T4 #### [facility] [address] [place] [address] Dr. Abelardo Barrett TSHon 09-30-2021 TSH Qn m[IU]/L Critically low 0.358-3.740 [facility] Comment on above: Performed By: #### F T3, TSH, T4 #### [facility] [address] [place] [address] Dr. Abelardo Barrett TSH RANGE SEE BELOW Normal [facility] Comment on above: Result Comment: <0.3 4 UIU/ml HYPERTHYROID 0.34-5.60 UIU/ml EUTHYROID >5.60 UIU/ml HYPOTHYROID Performed By: #### F T3, TSH, T4 #### [facility] [address] [place] [address] Dr. Abelardo Barrett FREE T3on 08-14-2021 FREE T3 1.73 pg/mlL Critically low 2.77-5.27 [facility] Comment on above: Performed By: #### C MP, LIPID #### [facility] [address] [place] [address] Dr. Abelardo Barrett T4on 08-14-2021 T4 [Mass/Vol] 4.40 ug/dL Critically low 5.53-11.00 [facility] Comment on above: Performed By: #### C MP, LIPID #### [facility] [address] [place] [address] Dr. Abelardo Barrett TSHon 08-14-2021 TSH 0.349 uIU/mL Critically low 0.470-4.680 [facility] Comment on above: Performed By: #### C MP, LIPID #### [facility] [address] [place] [address] Dr. Abelardo Barrett TSH RANGE SEE BELOW Normal [facility] Comment on above: Result Comment: <0.3 4 UIU/ml HYPERTHYROID 0.34-5.60 UIU/ml EUTHYROID >5.60 UIU/ml HYPOTHYROID Performed By: #### C MP, LIPID #### [facility] [address] [place] [address] Dr. Abelardo Barrett Outside Colonoscopyon 2020 Outside Colonoscopy [id number] 0CD:127 Normal [facility] RAD - MISCon 05-14-2020 RAD - MISC [id number] 0CD:127 Normal [facility] Lab Reportson 05-12-2020 Lab Reports [id number] 0CD:127 Normal [facility] Provider Letter FTMCon 05-07 Provider Letter [facility] Dorcas Aguirre, [address] [place] [address] [place] [address] Re: BECKY PONCE Date of : 1945 Thank you for your referral of Becky Ponce who was seen on consultation on April 30, 2020, for positive occult stool. A colonoscopy is planned for further evaluation. I have enclosed my consultation notes for your review. I will be happy to follow Becky should her symptoms persist. Sincerely, Ajith Renee MD General [facility] Consent for Procedure/Surger yon 05-06-2020 Consent for Procedure/Surgery [id number] 0CD:127 [facility] Facesheeton 05-01-2020 Facesheet [id number] 0CD:127 [facility] Ambulatory Clinical Summaryo n 04-30-2020 Ambulatory Clinical Summary {[id number]}CD:[id number] [facility] Clinical Summary {[id number]}CD:[id number] [facility] Physician Referralon 020 Physician Referral [id number] 0CD:127 [facility] Vital Signs Date Time Vital Sign Value Performing Clinician Facility 06-25-2024 08:43-0500 Body height 162.6 cm Sanjuanita Whipple MD Work Phone: [facility] 06-25-2024 08:43-0500 Body mass index (BMI) [Ratio] 24.55 kg/m2 Sanjuanita Whipple MD Work Phone: [facility] 06-25-2024 08:43-0500 Body weight 64.86 kg Sanjuanita Whipple MD Work Phone: [facility] 06-25-2024 08:43-0500 Diastolic blood pressure 70 mm[Hg] Sanjuanita Whipple MD Work Phone: [facility] 06-25-2024 08:43-0500 Systolic blood pressure 120 mm[Hg] Sanjuanita Whipple MD Work Phone: [facility] 05-21-2024 10:20-0500 Body height 162.6 cm Pm 2 [facility] 05-21-2024 10:20-0500 Body mass index (BMI) [Ratio] 24.55 kg/m2 Pm 2 [facility] 05-21-2024 10:20-0500 Body weight 64.86 kg Pm 2 [facility] 04-10-2024 11:24-0500 Diastolic blood pressure 76 mm[Hg] Sanjuanita Whipple MD Work Phone: [facility] 04-10-2024 11:24-0500 Systolic blood pressure 132 mm[Hg] Sanjuanita Whipple MD Work Phone: [facility] 03-27-2024 11:01-0500 Body height 162.6 cm Sanjuanita Whipple MD Work Phone: [facility] 03-27-2024 11:01-0500 Body mass index (BMI) [Ratio] 25.46 kg/m2 Sanjuanita Whipple MD Work Phone: [facility] 03-27-2024 11:01-0500 Body weight 67.27 kg Sanjuanita Whipple MD Work Phone: [facility] 03-27-2024 11:01-0500 Diastolic blood pressure 82 mm[Hg] Sanjuanita Whipple MD Work Phone: [facility] 03-27-2024 11:01-0500 Systolic blood pressure 140 mm[Hg] Sanjuanita Whipple MD Work Phone: [facility] 05-27-2022 16:10-0500 Body temperature 96.4 [degF] Saranya Butcher MD Work Phone: [facility] 05-27-2022 16:10-0500 Diastolic blood pressure 72 mm[Hg] Saranya Butcher MD Work Phone: [facility] 05-27-2022 16:10-0500 Heart rate 81 /min Saranya Butcher MD Work Phone: [facility] 05-27-2022 16:10-0500 SaO2% (BldA) [Mass fraction] 99 % Saranya Butcher MD Work Phone: [facility] 05-27-2022 16:10-0500 Systolic blood pressure 145 mm[Hg] Saranya Butcher MD Work Phone: [facility] 05-27-2022 14:30-0500 Respiratory rate 15 /min Saranya Butcher MD Work Phone: [facility] 07-29-2021 09:16-0400 Body height 162.6 cm Gertrudis Encarnacion MD Work Phone: [facility] 07-29-2021 09:16-0400 Body mass index (BMI) [Ratio] 23.34 kg/m2 Gertrudis Encarnacion MD Work Phone: [employer] [facility] 07-29-2021 09:16-0400 Body temperature 97.59 [degF] Gertrudis Encarnacion MD Work Phone: [employer] [facility] 07-29-2021 09:16-0400 Body weight 61.69 kg Gertrudis Encarnacion MD Work Phone: [employer] [facility] 07-29-2021 09:16-0400 Diastolic blood pressure 85 mm[Hg] Gertrudis Encarnacion MD Work Phone: [facility] 07-29-2021 09:16-0400 Heart rate 91 /min Gertrudis Encarnacion MD Work Phone: [facility] 07-29-2021 09:16-0400 Systolic blood pressure 144 mm[Hg] Gertrudis Encarnacion MD Work Phone: [facility] Encounters Encounter Date Encounter Type Care Provider Facility Start: 11-21-2024 End: 11-21-2024 Bamboo flowsraman Mustafa MD Work Phone: [facility] Start: 11-21-2024 End: 11-21-2024 Bamboo flowsraman Mustafa MD Work Phone: [facility] Start: 11-21-2024 End: 11-21-2024 Postop follow up visit related to original px Eloisa Mustafa MD Work Phone: [facility] Comment on above: Encounter for remova l of sutures (Primary Dx) Start: 11-21-2024 End: 11-21-2024 ambulatory ELOISA A PETITTI Not Available Start: 11-07-2024 End: 11-07-2024 Patient encounter procedure Eloisa Mustafa MD Work Phone: [facility] Comment on above: Basal cell carcinoma (BCC) of skin of other part of torso (Primary Dx) Start: 11-07-2024 End: 11-07-2024 ambulatory ELOISATJ GANI Not Available Start: 09-19-2024 End: 09-19-2024 Bamboo flowsheet Melissa A Felter BAND LEADER-PATIENT FINANCIAL SERVICES SPECIALIST Work Phone: [facility] Start: 09-19-2024 End: 09-19-2024 Bamboo flowsheet Melissa A Felter BAND LEADER-PATIENT FINANCIAL SERVICES SPECIALIST Work Phone: [facility] Start: 09-19-2024 End: 09-19-2024 Office outpatient visit 25 minutes Melissa A Felter BAND LEADER-PATIENT FINANCIAL SERVICES SPECIALIST Work Phone: [facility] Comment on above: Seborrheic keratosis (Primary Dx); Lentigines; Actinic keratosis; History of SCC (squamous cell carcinoma) of skin; Neoplasm of unspecified behavior of bone, soft tissue, and skin Start: 09-19-2024 End: 09-19-2024 ambulatory MELISSA SABA Not Available Start: 09-07-2024 ambulatory Saranya Butcher [facility] Start: 09-04-2024 ambulatory Saranya Butcher [facility] Start: 06-29-2024 End: 07-04-2024 Telephone encounter Sanjuanita Whipple MD Work Phone: [facility] Start: 06-25-2024 End: 06-25-2024 Office outpatient visit 15 minutes Sanjuanita Whipple MD Work Phone: [facility] Comment on above: 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) Start: 06-25-2024 End: 06-25-2024 ambulatory [facility] Start: 06-11-2024 End: 06-11-2024 Evaluation and management of inpatient [facility] Start: 06-11-2024 End: 06-11-2024 Evaluation and management of inpatient [facility] Start: 05-21-2024 End: 05-21-2024 Patient encounter procedure [facility] Pre-Admission Testing 2 [facility] - Pre Admit Comment on above: Preop examination (P rimary Dx); Hypertension, unspecified type Start: 05-21-2024 End: 05-21-2024 Preprocedural examination done [facility] 2 [facility] Start: 05-21-2024 End: 05-21-2024 ambulatory SARANYA Pabon [facility] Start: 05-21-2024 Encounter for other preprocedural examination HINSDALE Cm [facility] Start: 05-07-2024 End: 05-07-2024 Telephone encounter Sanjuanita Whipple MD Work Phone: [facility] Start: 04-30-2024 End: 04-30-2024 ambulatory [facility] Start: 04-10-2024 End: 04-10-2024 ambulatory [facility] Start: 04-10-2024 End: 04-10-2024 Patient encounter procedure Sanjuanita Whipple MD Work Phone: [facility] Comment on above: 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); Atrophic vaginitis Start: 04-10-2024 End: 04-10-2024 ambulatory [facility] Start: 03-27-2024 End: 03-27-2024 Office outpatient new 30 minutes Sanjuanita Whipple MD Work Phone: [facility] Comment on above: 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) Start: 03-27-2024 End: 03-27-2024 ambulatory [facility] Start: 03-20-2024 End: 03-20-2024 Bamboo flowsheet Melissa A Felter BAND LEADER-PATIENT FINANCIAL SERVICES SPECIALIST Work Phone: [facility] Start: 03-20-2024 End: 03-20-2024 Bamboo flowsheet Melissa A Felter BAND LEADER-PATIENT FINANCIAL SERVICES SPECIALIST Work Phone: [facility] Start: 03-20-2024 End: 03-20-2024 Office outpatient visit 25 minutes Melissa A Felter BAND LEADER-PATIENT FINANCIAL SERVICES SPECIALIST Work Phone: [facility] Comment on above: Seborrheic keratosis (Primary Dx); Onychomycosis; Lentigines; Actinic keratosis Start: 03-20-2024 End: 03-20-2024 ambulatory MELISSA A FELTER Not Available Start: 09-09-2023 End: 09-09-2023 Office outpatient visit 10 minutes Saranya Butcher Work Phone: [facility] Raul Hua Start: 10-20-2022 End: 10-20-2022 ambulatory Gertrudis Encarnacion Facility:[facility] Start: 07-05-2022 End: 07-05-2022 Encounter identifier Saranya Butcher Work Phone: [facility] Start: 06-15-2022 End: 06-16-[address] DOCTOR BANDA Facility:[facility] Start: 06-02-2022 End: 06-02-2022 Encounter identifier Saranya Butcher Work Phone: [facility] Start: 06-01-2022 End: 06-01-[address] NIKUNJ LINDSEY Facility:[facility] Start: 05-27-2022 End: 05-27-2022 Evaluation and management of inpatient SARANYA BUTCHER [facility] Start: 05-27-2022 End: 05-27-2022 Encounter identifier Jethrotri Rosales Work Phone: [facility] JAVY Start: 05-27-2022 End: 05-27-2022 Evaluation and management of inpatient Saranya Butcher MD Work Phone: [facility] Comment on above: 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, initial encounter ([facility] Start: 05-27-2022 End: 05-27-2022 Evaluation and management of inpatient [facility] Start: 05-27-2022 End: 05-27-2022 Subsequent hospital visit by physician Chaim [address] [place] [address] Comment on above: Pain Start: 05-17-2022 End: 05-17-2022 Encounter identifier Jaskaran Martinez Work Phone: [facility] Therapy [place] Start: 05-06-2022 End: 05-06-2022 Encounter identifier Saranya Butcher Work Phone: [facility] Start: 05-06-2022 End: 05-06-2022 Office outpatient visit 25 minutes Ajith De La Torre Work Phone: [facility] [place] Start: 04-07-2022 End: 04-08-[address] SARANYA NICE Facility:[facility] Start: 03-30-2022 End: 03-31-[address] DORCAS AGUIRRE . Facility:[facility] Start: 01-15-2022 End: 01-16-[address] DORCAS AGUIRRE . Facility:[facility] Start: 12-14-2021 End: 12-15-[address] JIAN DEAN Facility:[facility] Start: 11-19-2021 End: 11-20-2021 ambulatory DORCAS AGUIRRE Facility:[facility] Start: 11-18-2021 Encounter for preprocedural laboratory examination ELA MELTON [facility] Start: 11-17-2021 End: 11-18-2021 ambulatory ELA MELTON Facility:[facility] Start: 11-17-2021 End: 11-18-2021 Encounter for preprocedural laboratory examination ELA MELTON Facility:[facility] Start: 11-14-2021 End: 11-14-2021 ambulatory NIKHIL GIORDANO Facility:[facility] Start: 11-03-2021 End: 11-16-2021 ambulatory DORCAS AGUIRRE Facility:[facility] Start: 10-29-2021 End: 10-29-[address] DORCAS AGUIRRE . Facility:[facility] Start: 10-27-2021 End: 10-28-[address] DORCAS AGUIRRE . Facility:[facility] Start: 09-30-2021 End: 10-01-[address] DORCAS AGUIRRE . Facility: Start: 08-14-2021 End: 08-15-[address] DORCAS AGUIRRE . Facility: Start: 07-29-2021 End: 07-29-2021 Patient encounter procedure Gertrudis Encarnacion MD Work Phone: [facility]astic [facility] Comment on above: Rhytides (Primary Dx ); Atrophic skin Procedures Date Procedure Procedure Detail Performing Clinician Start: 11-07-2024 SKIN EXCISION Eloisa mcallister MD Work Phone: Start: 11-07-2024 SKIN REPAIR Eloisa park MD Work Phone: Start: 09-19-2024 End: 09-19-2024 SKIN / NAIL BIOPSY Melissa Saba BAND LEADER-PATIENT FINANCIAL SERVICES SPECIALIST Work Phone: Start: 04-30-2024 Follow-up visit Follow-up SANJUANITA WHIPPLE Start: 04-10-2024 Colposcopy Colposcopy SANJUANITA PABLO [facility] Start: 03-20-2024 CRYOTHERAPY SKIN LESION Melissa Saba BAND LEADER-PATIENT FINANCIAL SERVICES SPECIALIST Work Phone: Start: 09-09-2023 End: 09-09-2023 Radex hip unilateral with pelvis 2-3 views Saranya Butcher MD Start: 05-27-2022 Culture fngi mold/ye ast prsmptv oth xcpt blood Saranya Butcher MD Work Phone: Start: 05-27-2022 Radiologic examinati on pelvis 1/2 views Anu Grimes PA Work Phone: Start: 05-27-2022 End: 05-27-2022 Intermittent [...] above: Performed By: #### 3 [id number] #### [facility] [address] [place] [address] Start: 05-27-2022 POCT GLUCOSE BLOOD Cuba Butcher MD Work Phone: Start: 05-27-2022 Sars-cov-2 detection by dna/rna Saranya Butcher MD Work Phone: Start: 05-27-2022 Antibody screen rbc each serum technique Saranya Butcher MD Work Phone: Start: 05-17-2022 Antibody screen SARANYA OAKES Comment on above: Performed By: #### 3 [id number] #### [facility] [address] [address] Start: 05-17-2022 End: 05-17-2022 Physical therapy evaluation low complex 20 mins Saranya Butcher MD Start: 05-17-2022 End: 05-17-2022 Therapeut actvity direct pt contact each 15 min Saranya Butcher MD Plan of Treatment Date Care Activity Detail Author Start: 06-25-2025 Tobacco Screening Tobacco Screening [facility] Start: 06-11-2025 Tobacco Screening Tobacco Screening [facility] Start: 05-21-2025 Tobacco Screening Tobacco Screening [facility] Start: 04-30-2025 Tobacco Screening Tobacco Screening [facility] Start: 04-10-2025 Tobacco Screening Tobacco Screening [facility] Start: 04-02-2025 End: 04-02-2025 Patient encounter procedure 04/02/2025 9:10 AM EST Office Visit [facility] [address] [place] [id number] Melissa Saba, BAND LEADER-PATIENT FINANCIAL SERVICES SPECIALIST [address] [place] [address] [facility] Start: 12-31-2024 Influenza vaccination [facility] Start: 11-21-2024 End: 11-21-2024 Patient encounter procedure [facility] Comment on above: Arrived Start: 09-19-2024 End: 09-19-2024 Patient encounter procedure [facility] Comment on above: Arrived Start: 06-11-2024 End: 06-11-2024 Admission to same day surgery center 06/11/2024 2:30 PM EST - 06/11/2024 3:30 PM EST Surgery [facility] - Surgery [address] [place] [id number] Sanjuanita Whipple MD [address] [place] [address] LEEP CERVIX [57885 (CPT )] [facility] Comment on above: LEEP CERVIX [72424 (CPT )] Start: 06-11-2024 End: 06-11-2024 Colposcopy cervix vag loop eltrd bx cervix LEEP CERVIX abnormal PAP 06/11/2024 2:30 PM EST [facility] Start: 06-11-2024 Subsequent hospital visit by physician 06/11/2024 2:30 PM EST Hospital Encounter [facility] - Surgery [address] [place] [address] Sanjuanita Whipple MD [address] [place] [address] [facility] Start: 05-21-2024 End: 05-14-2025 Basic metabolic 2000 panel - Serum or Plasma Basic Metabolic Panel Lab Routine Preop examination Hypertension, unspecified type Expected: 05/21/2024, Expires: 05/14/2025 [facility] Work Phone: Comment on above: Expected: 05/21/2024, Expires: Start: 05-21-2024 End: 05-21-2024 Patient encounter procedure 05/21/2024 10:30 AM EST Procedure visit [facility] - [facility] Admit [address] [place] [address] [facility] - Pre Admit Start: 04-30-2024 End: 04-30-2024 Patient encounter procedure 04/30/2024 8:45 AM EST Office Visit [facility] [place] [address] Sanjuanita Whipple MD [address] [place] [address] [facility] Start: 04-10-2024 End: 04-10-2024 Patient encounter procedure 04/10/2024 11:30 AM EST Procedure visit [facility] [address] [place] [id number] Sanjuanita Whipple MD [address] [place] [address] [facility] Start: 03-20-2024 End: 03-20-2024 Patient encounter procedure 03/20/2024 9:50 AM EST Office Visit [facility] [address] [place] [address] Melissa Saba, BAND LEADER-PATIENT FINANCIAL SERVICES SPECIALIST [address] [place] [address] Arrived [facility] Comment on above: Arrived Start: 01-01-2024 COVID-19 Vaccine ( season) COVID-19 Vaccine () [facility] Start: 01-01-2024 Influenza vaccination [facility] Start: 05-27-2023 Falls Risk Assessment Falls Risk Assessment [facility] Start: 05-17-2023 Hypertension/CHF/CAD Annual BMP Blood Test Hypertension/CHF/CAD Annual BMP Blood Test [facility] Start: 05-17-2022 Adolescent depression screening assessment Depression Screening [facility] Start: 05-17-2022 Hepatitis C screening Hepatitis C Screening [facility] Start: 05-17-2022 Lipid panel Cholesterol Screening (Lipid Panel) [facility] Start: 05-17-2022 Medicare Annual Wellness Visit Medicare Annual Wellness Visit [facility] Start: 05-17-2022 Screening for malignant neoplasm of breast Breast Cancer Screening [facility] Start: 05-17-2022 Screening for malignant neoplasm of colon Colorectal Cancer Screening: Colonoscopy [facility] Start: 05-17-2022 Screening for osteoporosis Osteoporosis Screening (Bone Density Screening) [facility] Start: 05-17-2022 Social Influencers of Health Screening Social Influencers of Health Screening [facility] Start: 05-06-2022 Patient referral Referrals: DME LT Hip Revision [facility] Start: 04-23-2021 COVID-19 VACCINE (2 - Pfizer 3-dose series) COVID-19 VACCINE (2 - Pfizer 3-dose series) [facility] Start: 04-23-2021 COVID-19 Vaccine (2 - Pfizer series) COVID-19 Vaccine (2 - Pfizer series) [facility] Start: 12-31-2020 Influenza vaccination INFLUENZA VACCINE (#1) [facility] Start: 12-24-2012 Fall Risk Screening Fall Risk Screening [facility] Start: 12-24-2012 Pneumococcal vaccination PNEUMOCOCCAL VACCINE SERIES (1 of 1 - PPSV23) [facility] Start: 12-24-1997 Administration of varicella zoster vaccine Zoster (Shingles) Vaccine (1 of 2) [facility] Start: 12-24-1997 Zoster vaccine hzv live for subcutaneous use ZOSTER (SHINGLES) VACCINE (1 of 2) [facility] Start: 12-24-1997 Zoster Vaccines (1 of 2) Zoster Vaccines (1 of 2) [facility] Start: 12-24-1992 Colonoscopy COLORECTAL CANCER SCREENING DISCUSSION [facility] Start: 1987 Fasting lipid profile LIPID SCREENING [facility] Start: 1987 Screening mammography MAMMOGRAM SCREENING DISCUSSION [facility] Start: 12-24-1968 Screening for malignant neoplasm of cervix CERVICAL CANCER SCREENING DISCUSSION [facility] Start: 12-24-1966 DTaP,Tdap and Td Vaccines (1 - Tdap) DTaP,Tdap and Td Vaccines (1 - Tdap) [facility] Start: 12-24-1966 DTaP,Tdap,and Td Vaccines (1 - Tdap) DTaP,Tdap,and Td Vaccines (1 - Tdap) [facility] Start: 12-24-1966 Third diphtheria, tetanus and acellular pertussis (DTaP) vaccination TDAP (ADULT) [facility] Start: 12-24-1965 Tetanus vaccination TETANUS [facility] Start: 1959 Depression Screening Depression Screening [facility] Start: 1959 Tobacco Screening Tobacco Screening [facility] Start: 1947 Hepatitis C antibody, confirmatory test HEPATITIS C VIRUS SCREENING [facility] Start: 1947 Screening for osteoporosis DEXA SCAN DISCUSSION [facility] Bacteria identified in Tissue by Culture Culture tissue with gram stain Microbiology Routine Other mechanical complication of internal left hip prosthesis, initial encounter ([facility]) 05/27/2022 11:30 AM [employer] Bacteria identified in Tissue by Culture Culture tissue with gram stain Microbiology Routine 05/27/2022 3:08 PM [employer] End: 05-27-2022 Bacteria identified in Unspecified specimen by Anaerobe culture [employer] Work Phone: Comment on above: Release Upon Ordering for 1 Occurrences starting 05/27/2022 Once for 1 Occurrenc es starting 05/27/2022 until 05/27/2022 Bacteria identified in Unspecified specimen by Anaerobe culture Culture anaerobic Microbiology Routine 05/27/2022 3:08 PM [employer] End: 04-10-2025 Cytopathology procedure, preparation of smear, genital source Pap Smear Pathology and Cytology Routine HPV in female 1 Occurrences starting 04/10/2024 until 04/10/2025 [employer] Phone: Comment on above: 1 Occurrences starting 04/10/2024 until 04/10/2025 Dermatopathology exam Dermatopat hology exam Pathology and Cytology Timed Neoplasm of unspecified behavior of bone, soft tissue, and skin Release Upon Ordering for 1 Occurrences starting 09/19/2024 [employer] Phone: Comment on above: Release Upon Ordering for 1 Occurrences starting 09/19/2024 Dermatopathology exam Dermatopat hology exam Pathology and Cytology Timed Basal cell carcinoma (BCC) of skin of other part of torso Release Upon Ordering for 1 Occurrences starting 11/07/2024 [employer] Phone: Comment on above: Release Upon Ordering for 1 Occurrences starting 11/07/2024 Fungus identified in Skin by Culture Culture fungal, other Microbiology Routine Other mechanical complication of internal left hip prosthesis, initial encounter ([facility]) 05/27/2022 11:30 AM [employer] Fungus identified in Skin by Culture Culture fungal, other Microbiology Routine 05/27/2022 3:08 PM [employer] End: 04-10-2025 High risk HPV w/brady High risk HPV w/brady Lab Routine HPV in female 1 Occurrences starting 04/10/2024 until 04/10/2025 [employer] Comment on above: 1 Occurrences starting 04/10/2024 until 04/10/2025 Mycobacterium sp identified in Unspecified specimen by Organism specific culture Culture AFB Microbiology Routine Other mechanical complication of internal left hip prosthesis, initial encounter ([facility]) 05/27/2022 11:30 AM EST [employer] Mycobacterium sp identified in Unspecified specimen by Organism specific culture Culture AFB Microbiology Routine 05/27/2022 3:08 PM EST [employer] Pathology [facility] Comment on above: Release Upon Ordering for 1 Occurrences starting 05/27/2022, 1 completed End: 04-10-2025 Surgical Pathology Surgical Pathology Pathology and Cytology Routine HPV in female 1 Occurrences starting 04/10/2024 until 04/10/2025 [facility] Comment on above: 1 Occurrences starting 04/10/2024 until 04/10/2025 Immunizations Immunization Date Immunization Notes Care Provider Fa [facility] 05-23-2024 influenza virus vaccine, unspecified formulation Melissa Saba BAND LEADER-PATIENT FINANCIAL SERVICES SPECIALIST Work Phone: [facility] 05-18-2023 influenza virus vaccine, unspecified formulation Melissa Saba BAND LEADER-PATIENT FINANCIAL SERVICES SPECIALIST Work Phone: [facility] 04-09-2020 influenza virus vaccine, unspecified formulation Gertrudis Encarnacion MD Work Phone: [facility] Payers Date Payer Category Payer Self-pay 2022 Medicaid [employer] MEDICARE A DVANTAGE [id number] 2022 Medicare AETNA MEDICARE A DVANTAGE AETNA MEDICARE ADVANTAGE [id number] 2022-Present [phone] [address] [place] [address] [id number] 2022 Medicare HMO AETNA MEDICARE [id number] 2021 Unknown [id number] 1.13.172.2.7.3.6 [id number] 1959 Medicare [id number] 1959 Medicare [id number] 1945 Unknown [id number] 2.16.840.1.137517.3.579.2.647 1945 Unknown [id number] 2.16.840.1.528250.3.579.2.647 1947 Unknown [id number] 2.16.840.1.684781.3.579.2.1143 1947 Unknown [id number] 2.16.840.1.119525.3.579.2.1143 1947 Unknown [id number] 2.16.840.1.414049.3.579.2.593 1947 Unknown [id number] 2.16.840.1.552210.3.579.2.593 1947 Unknown [id number] 2.16.840.1.162391.3.579.2.593 1947 Unknown [id number] 2.16.840.1.023112.3.579.2.593 1947 Unknown [id number] 2.16.840.1.914770.3.579.2.593 1947 Unknown [id number] 2.16.840.1.900098.3.579.2.593 1947 Unknown [id number] 2.16.840.1.146569.3.579.2.593 1947 Unknown [id number] 2.16.840.1.061536.3.579.2.593 1947 Unknown [id number] 2.16.840.1.524799.3.579.2.593 1947 Unknown [id number] 2.16840.1.122739.3.579.2.593 1947 Unknown [id number] 2.840.1.190045.3.579.2.593 1947 Unknown [id number] 2.840.1.526632.3.579.2.593 1947 Unknown [id number] 2.840.1.851446.3.579.2.1286 1947 Unknown [id number] 2.840.1.387342.3.579.2.1286 1947 Unknown [id number] 2.840.1.206735.3.579.2.1286 1947 Unknown [id number] 2.840.1.783682.3.579.2.1286 1947 Unknown [id number] 2.840.1.650169.3.579.2.1286 1947 Unknown [id number] 2.16840.1.022700.3.579.2.128 1947 Unknown [id number] 2.840.1.919349.3.579.2.1286 1947 Unknown [id number] 2.16840.1.682835.3.579.2.1286 1947 Unknown [id number] 2.16.840.1.120442.3.579.2.1286 1947 Unknown [id number] 2.16.840.1.143215.3.579.2.1286 1947 Unknown [id number] 2.16.840.1.808570.3.579.2.1314 1947 Unknown [id number] 2.16.840.1.471341.3.579.2.1259 1947 Unknown [id number] 2.16.840.1.216363.3.579.2.1259 1947 Unknown [id number] 2.16.840.1.585538.3.579.2.1259 1947 Unknown [id number] 2.16.840.1.139997.3.579.2.1259 Unknown [id number] Unknown [id number] 2.16.840.1.942093.3.579.2.462 Social History Date Type Detail Facility Start: 03-10-2021 End: 03-29-2023 Tobacco smoking status NHIS Never smoked tobacco [facility] Start: 03-10-2021 End: 03-29-2023 Tobacco use and exposure Smokeless tobacco non-user [facility] Start: 07-29-2021 Alcohol intake Ex-drinker (finding) [facility] Start: 03-10-2021 History SDOH Alcohol Frequency 1 [facility] Start: 1945 Sex Assigned At Not on file [facility] Start: 05-27-2022 End: 11-21-2024 Alcohol intake Lifetime non-drinker (finding) [facility] Start: 05-17-2022 End: 05-27-2022 Exposure to SARS-CoV-2 (event) Not sure [facility] Start: 09-09-2023 Tobacco smoking status NHIS Unknown if ever smoked [facility] Start: 09-09-2023 Alcohol intake Alcohol Use Details [facility] Start: 1945 Sex Assigned At Female [facility] Start: 07-03-2019 Sexual Orientation Straight or heterosexual [facility] Start: 11-22-2023 End: 11-07-2024 History of Social function [facility] Start: 11-22-2023 End: 11-07-2024 Tobacco use panel [facility] Start: 11-09-2022 Alcohol Comment caffeine: none [facility] Start: 10-12-2022 Gender identity Identifies as female gender (finding) [facility] Start: 04-30-2024 End: 06-25-2024 Alcoholic beverage intake Current non-drinker of alcohol (finding) [facility] Childcare Unknown [facility] Start: 03-14-2017 Sex Female (finding) [facility] NEGATED: Highlighted rowStart: NINF History of tobacco use Passive smoker [facility] Medical Equipment Procedure Code Equipment Code Equipment Origin al Text Equipment Identifier Dates Hip Hd Option Bl x Cermc 32mm - Sna - [id number], [id number] FDA Start: 05-27-2022 Shl Actb 50mm Hi p 3 Hl Fin Pps - [id number] Start: 07-13-2017 Linr Actb G7 Ntr l E1 36mm D - [id number] Start: 07-13-2017 Hd Fem 36mm Opt Shl Actb G7 Bl Rpl 650-1059 - [id number] Start: 07-13-2017 Stm Fem 107.5mm 133d 11 Hi Os - [id number] Start: 07-13-2017 Slv Fem Opt -6mm Tpr Hip Blx D Rpl 650-1068 - [id number] Start: 07-13-2017 Goals Date Patient Goal Desired Activity /State Personal health goal Comment on above: Formatting of this n ote might be different from the original. Evaluation of progress towards goal: Maximize work with PT at discharge to strengthen L hip Clinical Notes 04-30-2020 to 11-21-2024 Eloisa Mustafa MD - 11/21/2024 10:35 AM Vania Mustafa MD - 11/07/2024 10:30 AM Rose Saba APRN-KYLE - 09/19/2024 8:30 AM Wilian Whipple MD - 06/25/2024 8:45 AM EST Note Date & Type Note Facility 11-21-2024 History of Present illness Narrative Images from the original note were not included. Suture Removal Patient here for suture removal: No complaints of redness, drainage or swelling at site, compliant with wound care. Location: Right breast Procedure Performed: Excision Date of Procedure: 11/07/2024 Medications: none All pertinent medical history, medications, and allergies were reviewed. General Exam: alert, oriented to person, place, and time, normal affect, well appearing Unaccompanied A focused exam completed based on patient reported problems, see below: Skin Exam 1. ENCOUNTER FOR REMOVAL OF SUTURES Right Breast Sutures are intact, Skin edges are well-approximated, Mild erythema along incision line, No drainage or edema noted Suture Removal: Procedure: Sutures were removed without difficulty. Tincture of Benzoin was applied around site in preparation of steri-strips. Steri-strips were applied Post-Procedure instructions: Instructed to discontinue wound care., Instructed to keep steri strips on for at least 5-7 days., Pathology results discussed. Next Visit: as scheduled documented in this encounter [facility] 11-07-2024 History of Present illness Narrative Images from [...] OF OTHER PART OF TORSO Right Breast [place] macule at biopsy site Skin excision Lesion [...] BCC Check Margins: Yes Previous accession number: [id number] Follow up: 14 days for s/r documented in this encounter [facility] 09-19-2024 History of Present illness Narrative Images from the original note were not included. Skin Check Location: Patient requests a skin examination from the waist up Dermatologic history: history of Actinic Keratosis, history of Squamous Cell Carcinoma Last visit: 03/20/2024 Lesions: Location: left lower leg Duration: nii, maybe 6 months Quality: denies pain, denies itch, denies bleeding Associated symptoms: non-healing Treatments: none Established patient All pertinent medical history, medications, and allergies [...] Left arm Examined Hands Examined Digits,nails: Examined Skin Exam 1. SEBORRHEIC KERATOSIS Generalized Stuck on verrucous, variably pigmented papules and plaques. Patient was counseled regarding these benign growths. Removal is normally not necessary, but they may be removed if they are symptomatic or for cosmetic reasons. 2. LENTIGINES Generalized Scattered gupta macules in sun-exposed areas. The patient was informed that lentigines are benign pigmented lesions that occur on sun-exposed and sun-damaged skin. No treatment is necessary. Recommended regular use of broad spectrum sunscreen SPF 30 or higher 3. ACTINIC KERATOSIS Arms Erythematous scaly papules Patient was counseled regarding these sun-induced growths that can develop into squamous cell carcinoma if left untreated. Discussed treatment options, including cryotherapy and topical preparations. It was emphasized that any treated lesions that fail to resolve should be re-evaluated. Patient elected for treatment with Efudex as this has become a chronic issue. Educated on Efudex treatment. Apply to Upper Arms and Chest twice a day for two weeks. Discussed that treated areas will become red, crusty, and inflamed. If areas become too uncomfortable, patient may use OTC hydrocortisone cream to help decrease irritation and can discontinue treatment early. Sun exposure should be avoided during treatment. Patient instructed to contact office for any questions or issues during treatment. Lesions that fail to resolve once treated area is healed should be re-evaluated in the office. Handout given to patient fluorouracil (Efudex) 5 % cream - Arms Apply to directed areas on upper arms and chest bid x 14 days 4. HISTORY OF SCC (SQUAMOUS CELL CARCINOMA) OF SKIN Left Upper Arm - Anterior No evidence of recurrence at SCC scar. The patient was counseled that scars from excisional sites of nonmelanoma skin cancers should be monitored closely for recurrence. The patient was instructed to contact the office for any new, changing, or symptomatic moles. The patient was also instructed to contact the office for any new lesions that develop within or around the previous surgery scar. 5. NEOPLASM OF UNSPECIFIED BEHAVIOR OF BONE, SOFT TISSUE, AND SKIN (2) Left Lower Leg - Anterior [place] papule Lesion biopsy Type of biopsy: tangential Informed consent: discussed [...] taken Amount of lidocaine used: 0.4 cc Specimen A - Dermatopathology exam Differential Diagnosis: SCC vs AK vs ISK Check Margins: No Size of lesion: 1.0 x 1.0 cm Right Breast [place] papule Lesion biopsy Type of biopsy: tangential Informed consent: discussed [...] taken Amount of lidocaine used: 0.3 cc Specimen B - Dermatopathology exam Differential Diagnosis: BCC vs Other Check Margins: No Size of lesion: 0.8 x 0.7 cm Next Visit: 6 months skin exam documented in this encounter [facility] 06-29-2024 Miscellaneous Notes Patient states she got a bill for an iodine 30 mg pill with a date of 06/11/24. This was the day of her LEEP surgery. Patient states neither she or her remember her taking any pills in pre-op. Please call Patient. Thank you. Attempted to call the patient and left a message for a call back. - Josefa Vallejo RN 07/02/24 8:57 AM Patient returned Josefa Vallejo's call and is requesting to be call back. Called the patient and left a message for a call back. - Josefa Vallejo RN 07/04/24 1:41 PM Verified with coding that the patient was charged for Iodine Tincture which is a cleaning agent they use on surgical sites prior to making an incision to clean the area of bacteria or other micro organisms. Pt called back and informed her of this information. She verbalized she understood. - Josefa Vallejo RN 07/04/24 1:46 PM documented in this encounter [facility] 06-29-2024 Telephone encounter Note Patient states she got a bill for an iodine 30 mg pill with a date of 06/11/24. This was the day of her LEEP surgery. Patient states neither she or her remember her taking any pills in pre-op. Please call Patient. Thank you. [facility] 06-29-2024 Telephone encounter Note Attempted to call the patient and left a message for a call back. - Josefa Vallejo RN 07/02/24 8:57 AM [facility] 06-29-2024 Telephone encounter Note Patient returned Josefa Vallejo's call and is requesting to be call back. [facility] 06-29-2024 Telephone encounter Note Called the patient and left a message for a call back. - Josefa Vallejo RN 07/04/24 1:41 PM [facility] 06-29-2024 Telephone encounter Note Verified with coding that the patient was charged for Iodine Tincture which is a cleaning agent they use on surgical sites prior to making an incision to clean the area of bacteria or other micro organisms. Pt called back and informed her of this information. She verbalized she understood. - Josefa Vallejo RN 07/04/24 1:46 PM [facility] History of Present illness Narrative Becky Ponce is a 78 y.o.female. No LMP recorded. Patient is postmenopausal.. She presents for a follow up for a biopsy. Results Discussed: 06/11/2024 Final Pathologic Diagnosis 1. Cervix, cone biopsy: Negative for atypia/dysplasia; largely denuded cervical stroma. 2. Endocervical curettage and endometrial brushing: Atrophic-appearing squamous epithelium without atypia. No glandular epithelium identified. OB History No obstetric history on file. MEDICAL HX Past Medical History: Diagnosis Date Arthritis Hyperlipidemia Hypertension Osteopenia Prolonged emergence from general anesthesia Seasonal allergies Visual impairment SURGICAL HX Past Surgical History: Procedure Laterality Date BELPHAROPTOSIS REPAIR CATARACT EXTRACTION Right CERVIX SURGERY LEEP CERVIX N/A 06/11/2024 Performed by Sanjuanita Whipple MD at [facility] REPLACEMENT TOTAL JOINT ANTERIOR SUPINE INTERMUSCULAR HIP Left 07/13/2017 Performed by Arnoldo Terrazas MD at [facility] HX Family History Problem Relation Age of Onset Arthritis Mother COPD Mother Heart disease Mother Diabetes Father Diabetes Sister Dementia Sister No Known Problems Brother Anesthesia problems Neg Hx MEDS Current Outpatient Medications Medication Sig Dispense Refill amitriptyline (ELAVIL) 50 mg tablet Take 1 tablet (50 mg total) by mouth nightly. cholecalciferol, vitamin D3, 2,000 units tablet Take 1 tablet (2,000 Units total) by mouth in the morning. diclofenac (VOLTAREN) 75 mg EC tablet Take 1 tablet (75 mg total) by mouth in the morning and 1 tablet (75 mg total) before bedtime. 11 lisinopril (PRINIVIL,ZESTRIL) 10 mg tablet Take 2 tablets (20 mg total) by mouth every morning before breakfast. montelukast (SINGULAIR) 10 mg tablet Take 1 tablet (10 mg total) by mouth nightly. pantoprazole (PROTONIX) 40 mg EC tablet Take 1 tablet (40 mg total) by mouth in the morning. semaglutide 0.25 mg or 0.5 mg(2 mg/1.5 mL) pen injector INJECT 25 UNITS (0.25MG) SUBCUTANEOUSLY ONCE WEEKLY ON THE SAME DAY simvastatin (ZOCOR) 20 mg tablet Take 1 tablet (20 mg total) by mouth nightly. SYNTHROID 75 mcg tablet Take 1 tablet (75 mcg total) by mouth every morning before breakfast. Take on empty stomach No current facility-administered medications for this visit. ALLERGIES No Known Allergies Review of Systems Review of Systems Objective BP 120/70 Ht 162.6 cm (5' 4 ) Wt 64.9 kg (143 lb) BMI 24.55 kg/m Physical Exam Assessment/Plan: PAP WNL W PERSISTENT HPV OTHER LGSIL BX W +ECC LEEP W ALL NEGATIVE PATHOLOGY MINIMAL REMAINING CERVICAL TISSUE AGE 78 AND NO DYSPLASIA ON LEEP SPECIMEN ADVISED ANNUAL WWE, BUT NO ADDL PAPS Discussed the patient biopsy results, no residual abnormalities. Discussed her past LGSIL from her biopsies may have been overcalled and there is very little concern at this point. Due to negative biopsy results and her past procedural results we see no need for further work up at this time. Discussed with the amount of cervical tissue left it may be dangerous to continue with any other procedures. All questions asked by the patient were answered thoroughly, including the positive other HPV on her previous pap smears. Emphasized the patient does not have HPV 16 and/or HPV 18 on pap smear. Emphasized no dysplasia on LEEP. Advised to increase her folic acid,vitamin D and Zinc intake. Advised to return for annual examinations but recommends she does not receive any more pap smears due to increased risk of morbidity and/or mortality. KARLA Haynes 06/25/24 [id number] SANJUANITA WHIPPLE MD documented in this encounter [facility] [employer] 05-21-2024 Instructions Anne-Marie Middleton RN - 05/21/2024 10:30 AM EST Preoperative Education Checklist- General Surgery date: 06/11/24 Surgery time: 2:30 p.m. Arrival time: 12:30 p.m. 1. Bring a photo ID and your insurance card with you the day of surgery. You will check in at the main lobby of the [facility]- registration desk is straight ahead as soon as you walk in. Tell them you are here for surgery. 2. If you have a Living Will/Durable Power of Television Installer for Health Care that is not on file here, please bring a copy the day of surgery. 3. Please shower/bathe the night before surgery with the provided soap or wipes. Do not shower the morning of surgery- you will do use wipes when you arrive here at the hospital before getting into your surgical gown. Do not shave the area of your procedure for 2 days prior to your surgery. 4. NO powder, lotion, perfume/cologne, aftershave, make-up, deodorant, or hair products after you have bathed. 5. NO nail namibian/acrylic on at least one finger. If you are having a hand, wrist or foot surgery then all nail namibian and artificial/acrylic nails must be removed from that hand or foot. 6. Avoid ALL Aspirin and non-steroidal anti-inflammatory drugs and certain vitamins (Ibuprofen, Advil, Aleve, Excedrin, Meloxicam, Celebrex, fish/krill oil, etc.) for 7 days prior to surgery as instructed by your surgeon and/or your prescribing doctor. Tylenol IS ALLOWED. If you are on Ticlid, Xarelto, Eliquis, Pradaxa, Plavix or Coumadin, please check with your prescribing doctor for instructions for when to stop them. 7. If you use an inhaler, continue to use it routinely. 8. Nothing to eat or drink (not even water, gum, mints, or hard candy!) AFTER midnight prior to your surgery. 9. Take only medications that you are instructed to on the morning of surgery with a TINY SIP OF WATER. 10. Choose a responsible adult that will be able to drive you home when you are discharged from your hospital stay for your surgery and can stay with you in your home for 24 hours after your procedure. You must NOT drive any vehicle or operate any machinery for 24 hours after surgery. 11. When you dress for your appointment, please wear loose fitting clothing that is appropriate to accommodate your surgical area procedure. BRING WITH YOU ANY DEVICES YOU MAY NEED: MATTI hose, ice machine, sling/swath, brace or special shoe, oversized zip-up or button up shirt, CPAP machine if staying overnight. 12. Do NOT wear jewelry, watches, or any piercings or metal for surgery- leave these valuables and money at home. 13. Do NOT wear contact lenses for surgery- glasses are okay if needed. 14. The anesthesiologist will talk with you the day of surgery and will ask you to sign a Consent Form. 15. Refrain from smoking or any type of tobacco use for at least 8 hours and marijuana for 24 hours prior to arrival for your surgery. 16. If a GREEN BLOOD band is given to you, please bring it with you for the day of surgery. 17. Notify your surgeon if you develop any illness before your surgery. 18. If you are staying overnight, please DO NOT BRING your home medications with you. 19. If you have any questions prior to surgery, please call the Pread[facility] Testing office at [phone], Mon.-Fri. 7 a.m.-3 p.m. Leave a voicemail if needed. Pre-Surgery Instructions: Medication Instructions cholecalciferol, vitamin D3, 2,000 units tablet Stop taking 0 days prior to procedure montelukast (SINGULAIR) 10 mg tablet Stop taking 0 days prior to procedure pantoprazole (PROTONIX) 40 mg EC tablet Stop taking 0 days prior to procedure amitriptyline (ELAVIL) 50 mg tablet Stop taking 0 days prior to procedure diclofenac (VOLTAREN) 75 mg EC tablet Stop taking 1 week prior to procedure lisinopril (PRINIVIL,ZESTRIL) 10 mg tablet Take morning of procedure simvastatin (ZOCOR) 20 mg tablet Stop taking 0 days prior to procedure SYNTHROID 75 mcg tablet Take morning of procedure How to Avoid an Infection after Your Surgery Your doctor will give you specific instructions, but remember: -ALWAYS wash hands before caring for your catheter and/or after using the restroom. -ALWAYS wipe from front to back. -No make creams, lotion, powder, rubbing alcohol or hydrogen peroxide on surgical area (can harm the tissue and slow healing). -Your doctor will give you specific instructions for what type of dressing or equipment you will need and how often it will need changed for infection purposes. -Do not allow anyone to touch your surgical area unless they are cleaning, checking, or redressing it (be sure they wash their hands first). -No contact of your surgical area with pets or pet hair; avoid sleeping with pets. -Take full course of antibiotic if prescribed for you after surgery- do not stop unless directed to by your physician. You may also be given an antibiotic prior to your surgery to help prevent surgical site infections. -Eat a healthy and varied diet including proteins, fruits, and vegetables to help promote wound healing and keep blood sugars under control if you are diabetic. -Smoking slows the healing process by decreasing the amount of oxygen in your blood that is needed for tissue healing. Try to avoid or stop smoking if possible. CALL your doctor if you notice any of the following: -Increased redness or hardening around the surgical area. -Increased pain or increased blood in your urine. -If urine becomes increasingly cloudy, you notice sediment or particles in your urine, or you notice a foul odor or yellow or green discharge. -Fever higher than 101 degrees Fahrenheit for more than 4 hours. If you have a question, call your doctor s office. Go to the follow-up appointment with your doctor. documented in this encounter [facility] 05-21-2024 Miscellaneous Notes Preoperative Education Checklist- General Surgery date: 06/11/24 Surgery time: 2:30 p.m. Arrival time: 12:30 p.m. 1. Bring a photo ID and your insurance card with you the day of surgery. You will check in at the main lobby of the [facility]- registration desk is straight ahead as soon as you walk in. Tell them you are here for surgery. 2. If you have a Living Will/Durable Power of Television Installer for Health Care that is not on file here, please bring a copy the day of surgery. 3. Please shower/bathe the night before surgery with the provided soap or wipes. Do not shower the morning of surgery- you will do use wipes when you arrive here at the hospital before getting into your surgical gown. Do not shave the area of your procedure for 2 days prior to your surgery. 4. NO powder, lotion, perfume/cologne, aftershave, make-up, deodorant, or hair products after you have bathed. 5. NO nail namibian/acrylic on at least one finger. If you are having a hand, wrist or foot surgery then all nail namibian and artificial/acrylic nails must be removed from that hand or foot. 6. Avoid ALL Aspirin and non-steroidal anti-inflammatory drugs and certain vitamins (Ibuprofen, Advil, Aleve, Excedrin, Meloxicam, Celebrex, fish/krill oil, etc.) for 7 days prior to surgery as instructed by your surgeon and/or your prescribing doctor. Tylenol IS ALLOWED. If you are on Ticlid, Xarelto, Eliquis, Pradaxa, Plavix or Coumadin, please check with your prescribing doctor for instructions for when to stop them. 7. If you use an inhaler, continue to use it routinely. 8. Nothing to eat or drink (not even water, gum, mints, or hard candy!) AFTER midnight prior to your surgery. 9. Take only medications that you are instructed to on the morning of surgery with a TINY SIP OF WATER. 10. Choose a responsible adult that will be able to drive you home when you are discharged from your hospital stay for your surgery and can stay with you in your home for 24 hours after your procedure. You must NOT drive any vehicle or operate any machinery for 24 hours after surgery. 11. When you dress for your appointment, please wear loose fitting clothing that is appropriate to accommodate your surgical area procedure. BRING WITH YOU ANY DEVICES YOU MAY NEED: MATTI hose, ice machine, sling/swath, brace or special shoe, oversized zip-up or button up shirt, CPAP machine if staying overnight. 12. Do NOT wear jewelry, watches, or any piercings or metal for surgery- leave these valuables and money at home. 13. Do NOT wear contact lenses for surgery- glasses are okay if needed. 14. The anesthesiologist will talk with you the day of surgery and will ask you to sign a Consent Form. 15. Refrain from smoking or any type of tobacco use for at least 8 hours and marijuana for 24 hours prior to arrival for your surgery. 16. If a GREEN BLOOD band is given to you, please bring it with you for the day of surgery. 17. Notify your surgeon if you develop any illness before your surgery. 18. If you are staying overnight, please DO NOT BRING your home medications with you. 19. If you have any questions prior to surgery, please call the Preadmission Testing office at [phone], Mon.-Fri. 7 a.m.-3 p.m. Leave a voicemail if needed. Pre-Surgery Instructions: Medication Instructions cholecalciferol, vitamin D3, 2,000 units tablet Stop taking 0 days prior to procedure montelukast (SINGULAIR) 10 mg tablet Stop taking 0 days prior to procedure pantoprazole (PROTONIX) 40 mg EC tablet Stop taking 0 days prior to procedure amitriptyline (ELAVIL) 50 mg tablet Stop taking 0 days prior to procedure diclofenac (VOLTAREN) 75 mg EC tablet Stop taking 1 week prior to procedure lisinopril (PRINIVIL,ZESTRIL) 10 mg tablet Take morning of procedure simvastatin (ZOCOR) 20 mg tablet Stop taking 0 days prior to procedure SYNTHROID 75 mcg tablet Take morning of procedure How to Avoid an Infection after Your Surgery Your doctor will give you specific instructions, but remember: -ALWAYS wash hands before caring for your catheter and/or after using the restroom. -ALWAYS wipe from front to back. -No make creams, lotion, powder, rubbing alcohol or hydrogen peroxide on surgical area (can harm the tissue and slow healing). -Your doctor will give you specific instructions for what type of dressing or equipment you will need and how often it will need changed for infection purposes. -Do not allow anyone to touch your surgical area unless they are cleaning, checking, or redressing it (be sure they wash their hands first). -No contact of your surgical area with pets or pet hair; avoid sleeping with pets. -Take full course of antibiotic if prescribed for you after surgery- do not stop unless directed to by your physician. You may also be given an antibiotic prior to your surgery to help prevent surgical site infections. -Eat a healthy and varied diet including proteins, fruits, and vegetables to help promote wound healing and keep blood sugars under control if you are diabetic. -Smoking slows the healing process by decreasing the amount of oxygen in your blood that is needed for tissue healing. Try to avoid or stop smoking if possible. CALL your doctor if you notice any of the following: -Increased redness or hardening around the surgical area. -Increased pain or increased blood in your urine. -If urine becomes increasingly cloudy, you notice sediment or particles in your urine, or you notice a foul odor or yellow or green discharge. -Fever higher than 101 degrees Fahrenheit for more than 4 hours. If you have a question, call your doctor s office. Go to the follow-up appointment with your doctor. Surgical instructions reviewed. Patient verbalized understanding. documented in this encounter [facility] 05-21-2024 Nurse Note Preoperative Education Checklist- General Surgery date: 06/11/24 Surgery time: 2:30 p.m. Arrival time: 12:30 p.m. 1. Bring a photo ID and your insurance card with you the day of surgery. You will check in at the main lobby of the [facility]- registration desk is straight ahead as soon as you walk in. Tell them you are here for surgery. 2. If you have a Living Will/Durable Power of Television Installer for Health Care that is not on file here, please bring a copy the day of surgery. 3. Please shower/bathe the night before surgery with the provided soap or wipes. Do not shower the morning of surgery- you will do use wipes when you arrive here at the hospital before getting into your surgical gown. Do not shave the area of your procedure for 2 days prior to your surgery. 4. NO powder, lotion, perfume/cologne, aftershave, make-up, deodorant, or hair products after you have bathed. 5. NO nail namibian/acrylic on at least one finger. If you are having a hand, wrist or foot surgery then all nail namibian and artificial/acrylic nails must be removed from that hand or foot. 6. Avoid ALL Aspirin and non-steroidal anti-inflammatory drugs and certain vitamins (Ibuprofen, Advil, Aleve, Excedrin, Meloxicam, Celebrex, fish/krill oil, etc.) for 7 days prior to surgery as instructed by your surgeon and/or your prescribing doctor. Tylenol IS ALLOWED. If you are on Ticlid, Xarelto, Eliquis, Pradaxa, Plavix or Coumadin, please check with your prescribing doctor for instructions for when to stop them. 7. If you use an inhaler, continue to use it routinely. 8. Nothing to eat or drink (not even water, gum, mints, or hard candy!) AFTER midnight prior to your surgery. 9. Take only medications that you are instructed to on the morning of surgery with a TINY SIP OF WATER. 10. Choose a responsible adult that will be able to drive you home when you are discharged from your hospital stay for your surgery and can stay with you in your home for 24 hours after your procedure. You must NOT drive any vehicle or operate any machinery for 24 hours after surgery. 11. When you dress for your appointment, please wear loose fitting clothing that is appropriate to accommodate your surgical area procedure. BRING WITH YOU ANY DEVICES YOU MAY NEED: MATTI hose, ice machine, sling/swath, brace or special shoe, oversized zip-up or button up shirt, CPAP machine if staying overnight. 12. Do NOT wear jewelry, watches, or any piercings or metal for surgery- leave these valuables and money at home. 13. Do NOT wear contact lenses for surgery- glasses are okay if needed. 14. The anesthesiologist will talk with you the day of surgery and will ask you to sign a Consent Form. 15. Refrain from smoking or any type of tobacco use for at least 8 hours and marijuana for 24 hours prior to arrival for your surgery. 16. If a GREEN BLOOD band is given to you, please bring it with you for the day of surgery. 17. Notify your surgeon if you develop any illness before your surgery. 18. If you are staying overnight, please DO NOT BRING your home medications with you. 19. If you have any questions prior to surgery, please call the Preadmission Testing office at [phone], Mon.-Fri. 7 a.m.-3 p.m. Leave a voicemail if needed. Pre-Surgery Instructions: Medication Instructions cholecalciferol, vitamin D3, 2,000 units tablet Stop taking 0 days prior to procedure montelukast (SINGULAIR) 10 mg tablet Stop taking 0 days prior to procedure pantoprazole (PROTONIX) 40 mg EC tablet Stop taking 0 days prior to procedure amitriptyline (ELAVIL) 50 mg tablet Stop taking 0 days prior to procedure diclofenac (VOLTAREN) 75 mg EC tablet Stop taking 1 week prior to procedure lisinopril (PRINIVIL,ZESTRIL) 10 mg tablet Take morning of procedure simvastatin (ZOCOR) 20 mg tablet Stop taking 0 days prior to procedure SYNTHROID 75 mcg tablet Take morning of procedure How to Avoid an Infection after Your Surgery Your doctor will give you specific instructions, but remember: -ALWAYS wash hands before caring for your catheter and/or after using the restroom. -ALWAYS wipe from front to back. -No make creams, lotion, powder, rubbing alcohol or hydrogen peroxide on surgical area (can harm the tissue and slow healing). -Your doctor will give you specific instructions for what type of dressing or equipment you will need and how often it will need changed for infection purposes. -Do not allow anyone to touch your surgical area unless they are cleaning, checking, or redressing it (be sure they wash their hands first). -No contact of your surgical area with pets or pet hair; avoid sleeping with pets. -Take full course of antibiotic if prescribed for you after surgery- do not stop unless directed to by your physician. You may also be given an antibiotic prior to your surgery to help prevent surgical site infections. -Eat a healthy and varied diet including proteins, fruits, and vegetables to help promote wound healing and keep blood sugars under control if you are diabetic. -Smoking slows the healing process by decreasing the amount of oxygen in your blood that is needed for tissue healing. Try to avoid or stop smoking if possible. CALL your doctor if you notice any of the following: -Increased redness or hardening around the surgical area. -Increased pain or increased blood in your urine. -If urine becomes increasingly cloudy, you notice sediment or particles in your urine, or you notice a foul odor or yellow or green discharge. -Fever higher than 101 degrees Fahrenheit for more than 4 hours. If you have a question, call your doctor s office. Go to the follow-up appointment with your doctor. [facility] 05-21-2024 Nurse Note Surgical instructions reviewed. Patient verbalized understanding. [facility] 05-07-2024 Miscellaneous Notes Patient scheduled for surgery with Dr. Whipple on 06/11/24 at 2:30pm with hospital arrival of 12:30pm. PAT scheduled on 05/21/24 at 10:30am. Patient notified of all dates and times and letter mailed. documented in this encounter [facility] 05-07-2024 Telephone encounter Note Patient scheduled for surgery with Dr. Whipple on 06/11/24 at 2:30pm with hospital arrival of 12:30pm. PAT scheduled on 05/21/24 at 10:30am. Patient notified of all dates and times and letter mailed. [facility] 04-10-2024 History of Present illness Narrative Colposcopy [...] SANJUANITA WHIPPLE MD documented in this encounter [facility] 03-27-2024 History of Present illness Narrative Becky [...] 07/13/2017 Performed by Arnoldo Terrazas MD at [facility] Family History Problem Relation [...] Ruble 03/27/24 1129 documented in this encounter [facility] 03-27-2024 Miscellaneous Notes Disclaimer: This note is [...] legal medical record. [facility] Progress note Formatting of t his [...] a part of the legal medical record. [facility] History of Present illness Narrative Images [...] limited to risks of scarring, darker or clinical laboratory aide pigmentary changes, recurrence, incomplete removal and infection. [...] months skin exam documented in this encounter [facility] 09-09-2023 Evaluation note Type assessment Presence of artificial hip, left assessment Primary osteoarthritis of left h ip [facility] Work Phone: 1(778) 139-594005-10-2024 History of Present illness Narrative* Encounter Date [...] Facto rs: Previous Surgery: LH revision 05/17/22 [facility]. Comments: Patient presents for LH revision post [...] Pain Modify ing Factors: Previous Surgery: LTHA 2017 Dr. Salazar ([place]). Comments: She complains of worsening left hip pain at her groin and thigh. Worse with weight bearing. Using a cane to assist with ambulation. Dr. Terrazas recently told her recently that her stem is loose but he doesn't do revisions. She was seen at [facility] in 2019 but it appeared that the implant had stabilized. Patient states that her symptoms are worsening and she can barely function at this point. No history of infection. [facility] Work Phone: 1(979) 763-840901-31-2023 NotePROCEDURE: XR HIP LT 2 3V W [...] Electronically authenticated by: FER JUAREZ Date: 2022-06-01 12:03[facility]01-26-2023 History of Present illness Narrative* Gaby Sanchez RN - 05/27/2022 5:59 PM EST Met all [...] with Kari. DVT prevention plan Has leg pu mps at bedside from her last admission for [...] is waiting to void. * Clau Peng, PT - 05/27/2022 3:36 PM EST [facility] Evaluation PT Discharge Recommendations: Home [...] of internal left hip prosthesis, initial encounter ([facility]) Past Medical History: Diagnosis Date [...] of Steps 1 Prior Function Level of Grant Independent with mobility and functional transfers Bed [...] 05/27/22 Met: 05/27/22 Outcomes Date/Time User Outcome 05/27/22Claudia Peng, GIN Completed Goal: Pt will transfer with SBA. (Resolved) Dates: Start: 05/27/22 Expected End: 05/27/22 Met: 05/27/22 Outcomes Date/Time User Outcome 05/27/22Claudia Peng, GIN Completed Goal: Pt will ambulate 100 ft. with wheeled walker and SBA (Resolved) Dates: Start: 05/27/22 Expected End: 05/27/22 Met: 05/27/22 Outcomes Date/Time User Outcome 05/27/22Claudia Peng, GIN Completed Goal: Pt will ascend/descend curb step with CGA and LRAD (Resolved) Dates: Start: 05/27/22 Expected End: 05/27/22 Met: 05/27/22 Outcomes Date/Time User Outcome 05/27/22Claudia Peng, GIN Completed Goal: Pt will demo understanding of [...] documented in this [id number] Hospital course Narrative* Marisela Pope RN - [...] SHEETS Contact Surgeon's office with any questions/concerns [phone] -Plasma Flow SCD'S Compression leg pumps on [...] or concerns. Verify Office location when scheduling. [email or web address] [phone] * Princess Kenney RN - 05/25/2022 1:43 [...] prior to your surgery. Check in at healthcare receptionist desk [address], [place] [address]. If Outpatient, these additional instructions apply: An adult must stay with you the whole time you are here and drive you home. An adult must stay withyou at home for 24 hours due to Anesthesia. If you have JESUS, you are required to stay 3 hours after your surgery before we can discharge you. documented in this encounterCoatesville [facility] [id number] Procedure note* Nancy Daniel RN - 05/27/2022 10:[address] Pemberton, Dr. Butcher, OR Nurse all aware of this patients skin tear on the right ankle (caused when patient was putting on her socks) assessed, documented and wound dressing applied. Salima [id number] Procedure note* Nancy Daniel RN - 05/27/2022 10:[address] Pemberton, Dr. Butcher, OR Nurse all aware of this patients skin tear on the right ankle (caused when patient was putting on her socks) assessed, documented and wound dressing applied. documented in this encounterCoatesville [facility] [id number] History and physical note* Saranya Butcher MD - 05/27/2022 9:49 AM EST History and Physical Update ( H&P completed within the previous thirty days ) I personally reviewed the History and Physical, interviewed and examined the patient prior to surgery. No changes have occurred in the patient's condition since the History and Physical was completed. [facility] Work Phone: [phone] History and physical note* Saranya Butcher MD - 05/27/2022 9:49 AM EST History and Physical Update ( H&P completed within the previous thirty days ) I personally reviewed the History and Physical, interviewed and examined the patient prior to surgery. No changes have occurred in the patient's condition since the History and Physical was completed. documented in this [facility] [id number] NotePROCEDURE: XR HIP LT 2 3V W [...] Electronically authenticated by: FER JUAREZ Date: 2022-03-31 06:56[facility]03-30-2022 History of Present illness Narrative* Spring [...] see them back PRN. documented in this [facility]12-30-2020 NoteChief Complaint referral for positive occult stool [...] Use:., 04/30/2020 Family History Family history is negativeMet[facility]ma [facility] CenterComment on above:Result Comment: Electronically Signed By: VALERIE DINERO, Ajith Rowe\Date and Time Signed: 04/30/20 15:38 ESTConsult note* Clinical Note Date No Information [facility] Work Phone: Discharge summary* Clinical Note Date No Information [facility] Work Phone: Evaluation note* Diagnosis Rhytides- Primary Other specified hypertrophic and atrophic condition of skin Atrophic skin Other specified hypertrophic and atrophic condition of skin documented in this encounter [facility]* Diagnosis Other mechanical complication of internal left hip prosthesis, initial encounter ([facility])- Primary documented in this encounter [facility]* Diagnosis Pain Generalized pain documented in this [facility]* Diagnosis Seborrheic keratosis- Primary Onychomycosis Dermatophytosis of nail Lentigines Actinic keratosis documented in this encounter [facility] HealthcareEvaluation note* Diagnosis Preop examination- Primary Unspecified pre-operative examination Hypertension, unspecified type Preop examination Unspecified pre-operative examination Hypertension, unspecified type documented in [facility]* 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 documented in this encounter [facility]* 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 vaginitis Postmenopausal atrophic vaginitis documented in this encounter [facility] note* 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 documented in this encounter [facility]* Diagnosis Seborrheic keratosis- Primary Lentigines Actinic keratosis History of SCC (squamous cell carcinoma) of skin Personal history of other malignant neoplasm of skin Neoplasm of unspecified behavior of bone, soft tissue, and skin documented in this encounter [facility] HealthcareEvaluation note* Diagnosis Basal cell carcinoma (BCC) of skin of other part of torso- Primary documented in this encounter [facility] HealthcareEvaluation note* Diagnosis Encounter for removal of sutures- Primary documented in this encounter [facility] HealthcareHistory and physical note* Clinical Note Date No Information [facility] Work Phone: Hospital Discharge instructions* Attachments The following attachments cannot be sent through Care Everywhere. * DVT (Deep Vein Thrombosis): Prevention: General Info (Yemeni) * Incentive Spirometer: General Info (Yemeni) * Fall Prevention (Yemeni) * Opioids: General Info (Yemeni) * Constipation (Yemeni) * Antibiotics: General Info (Yemeni) documented in [facility] Health[facility]* Date Instruction Additional Infor mation No Information [facility] Work Phone: InstructionsNot on filedocumented in this encounter [facility]ructionsNot on filedocumented in this encounter [facility] System[facility]ructionsNot on filedocumented in this encounter [facility] SystemInstructionsNot on filedocumented in this encounter [facility] note* Clinical Note Date No Information [facility] Work Phone: Reason for referral (narrative)* Reason For Referral No Information [facility] Work Phone: Reason for visit Narrative* Auth/Cert Specialty Diagnoses / Procedures Referred By Dione t Referred To Contact Diagnoses Other mechanical complication of internal left hip prosthesis, initial encounter ([facility]) T84.091A Procedures IN REVISION PRATIK ACETABULAR COMPONENT ONLY W/WO AUTOGRAFT/ALLOGRAFT IN REVISION PRATIK ACETABULAR COMPONENT ONLY W/WO AUTOGRAFT/ALLOGRAFT 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, anterior Saranya Butcher MD [address] [place] [address] [address] [place] [address] Referral ID Status Reason Start Date Expiration Date Visits Re quested Visits Authorized [id number] 1 1 [facility] Summary Purpose Family History No Family [...] Comments 07/13/2017 11:50 AM 07/14/2017 4:05 PM Date Activated Date Inactivated Comments 07/13/2017 11:50 AM 07/14/2017 4:05 PM Additional Source Comments INFORMATION SOURCE (unrecogn ized section and content) DATE CREATED AUTHOR 09/27/2020 [facility] DATE CREATED AUTHOR AUTHOR'S ORGANIZ ATION 11/30/2021 [facility] DATE CREATED AUTHOR AUTHOR'S ORGANIZ ATION 08/02/2022 [facility] DATE CREATED AUTHOR AUTHOR'S ORGANIZ ATION 08/07/2022 [facility] DATE CREATED AUTHOR AUTHOR'S ORGANIZ ATION 10/21/2022 [facility] DATE CREATED AUTHOR AUTHOR'S ORGANIZ ATION 06/20/2024 [facility] DATE CREATED AUTHOR AUTHOR'S ORGANIZ ATION 06/26/2024 [facility] DATE CREATED AUTHOR AUTHOR'S ORGANIZ ATION 09/09/2024 [facility] DATE CREATED AUTHOR AUTHOR'S ORGANIZ ATION 11/22/2024 [facility] EPIC Reason for Visit (unrecogniz ed section and content) Reason Comments Cosmetic Restylane Reason Comments Skin Check Follow-up Reason Comments Consult Reason Comments Colposcopy Reason Comments Skin Check Suspicious Skin Lesion Reason Comments Excision Reason Comments Suture / Staple Removal Care Teams (unrecognized sec tion and content) Scratcher Relationship Specialty Start Date End Date Dorcas Aguirre MD [address] [place] [address] PCP - General Family Medicine 03/10/21 Scratcher Relationship Specialty Start Date End Date Dorcas Aguirre MD [address] [place] [address] PCP - General Family Medicine 05/18/22 Scratcher Relationship Specialty Start Date End Date Dorcas Aguirre MD [address] [place] [address] PCP - General Family Medicine 05/18/22 Name Effective Dates (start - stop) Status Members No Information Scratcher Relationship Specialty Start Date End Date Dorcas Aguirre MD [address] [place] [address] PCP - General Family Medicine 10/13/22 Scratcher Relationship Specialty Start Date End Date Dorcas Aguirre MD [address] [place] [address] PCP - General Family Medicine 10/13/22 Scratcher Relationship Specialty Start Date End Date Dorcas Aguirre MD PCP - General 04/05/17 Scratcher Relationship Specialty Start Date End Date Dorcas Aguirre MD PCP - General 04/05/17 Scratcher Relationship Specialty Start Date End Date Dorcas Aguirre MD PCP - General 04/05/17 Scratcher Relationship Specialty Start Date End Date Dorcas Aguirre MD PCP - General 04/05/17 Scratcher Relationship Specialty Start Date End Date Doracs Aguirre MD [address] [place] [facility] [address] PCP - General Family Medicine 10/13/22 Scratcher Relationship Specialty Start Date End Date Dorcas Aguirre MD [address] [place] [address] PCP - General Family Medicine 10/13/22 Scratcher Relationship Specialty Start Date End Date Dorcas Aguirre MD [address] [place] [address] PCP - General Family Medicine 10/13/22 Scratcher Relationship Specialty Start Date End Date Dorcas Aguirre MD [address] [place] [address] PCP - General Family Medicine 10/13/22 Scratcher Relationship Specialty Start Date End Date Dorcas Aguirre MD [address] [place] [address] PCP - General Family Medicine 10/13/22 Ordered Prescriptions (unrec ognized section and content) Prescription Sig Dispensed Refills Start Date End Da ondansetron (ZOFRAN) 4 mg tablet Take 1 [...] intravenous, 2 times daily, First dose on Tue05/27/22 at 1400, [facility] 1400 [...] BE BASED ON THE PRIMARY CLINICAL RECORDS. [facility]. provides no warranty or guarantee of the accuracy or completeness of information in this document.
== END 2024-12-19 13:43 | disposition home or self-care (01) ==
LOC: MRI 13:42
PROVIDERS: PCP Family Medicine; Visit Provider Family Medicine
DX: M23.91 Unspecified internal derangement of right knee (principal); M25.461 Effusion, right knee
CPT/HCPCS: 73721

== ENCOUNTER 2025-01-18 12:59 | Outpatient (OUT) | payer MEDICARE, SELFPAY ==
--- NOTE | 2025-01-18 13:08 | XR_ITS ---
[address] [address] Patient Name: BECKY STRONG MRN: [id number] date: 1945 Sex: F Assigned Patient Location: [facility] Current Patient Location: [facility] Accession/Order Number: [id number] Exam Date: 01/18/2025 13:10 Report Date: 01/18/2025 18:31 At the request of: DORCAS AGUIRRE MD Procedure: XR hip RT min 2V RIGHT HIP - 2 views: CLINICAL HISTORY: Acute Right Hip Pain COMPARISON: None FINDINGS: Severe degenerative changes right hip. No fracture dislocation. Mild degenerative changes right sacral joint. Moderate stool burden. XR/XR hip RT min 2V IMPRESSION: NO ACUTE BONY INJURY. SEVERE DEGENERATIVE CHANGES RIGHT HIP. Impression dictated by: Nirmal Hogue M.D. 01/18/2025 6:31 PM Dictation Location: [place] [address] Electronically authenticated by: [id number] Y Date: 01/18/2025 18:31
--- OUTSIDE RECORDS SUMMARY | 2025-01-18 13:19 | XMS_ITS | CCD ---
Author Organization [facility] Care Team Providers Care Tissue Packer Name Role Phone Dorcas Aguirre MD Primary Care Provider [phone] DORCAS AGUIRRE Referring Unavailable DORCAS AGUIRRE Primary Care Unavailable GERI CHONG Attending Unavailable GERI CHONG Admitting Unavailable DORCAS AGUIRRE Primary Care Unavailable DORCAS AGUIRRE Referring Unavailable SELF, REFERRED Attending Unavailable SELF, REFERRED Admitting Unavailable Dorcas Aguirre MD Primary Care Provider SARANYA BUTCHER Admitting Unavailable SARANYA BUTCHER Attending Unavailable DORCAS AGUIRRE Primary Care Unavailable [facility] Consult[facility] Unavailable SARANYA BUTCHER Referring Unavailable DORCAS AGUIRRE Primary Care Unavailable TIMOTHY ., DR TOSCANO Attending Unavailable HOY ., DR TOSCANO Admitting Unavailable HOY ., DR TOSCANO Primary Care Unavailable HOY ., DR TOSCANO Consulting Unavailable ZIEBER, DR FER Cameron Consulting Unavailable QUITMAN, DR SARANYA Massey Consulting Unavailable AHMED, DR [...] Care Unavailable ELTAHAWMarlene, DR KENNEY Attending Unavailable ZAC, DR KENNEY [...] REINECK, DR NIKUNJ Díaz Attending Unavailabl e LARRY, DR FER Cameron Consulting Unavailable NIKHIL GIORDANO Admitting Unavailable NIKHIL GIORDANO Consulting Unavailable TIMOTHY ., DR TOSCANO Primary Care Unavailable NIKHIL GIORDANO Attending Unavailable LETICIA HOYT Unavailable Gertrudis Encarnacion Attending Unavailable Saranya Butcher MD Unavailable Unavailable Dorcas Aguirre MD Primary Care Provider [phone] Dorcas Aguirre MD Primary Care Provider [phone] SANJUANITA WHIPPLE Referring Unavailable HOY, DORCAS M Primary Care Unavailable SARANYA RAMIREZ Attending Unavailable SARANYA RAMIREZ Referring Unavailable HOY, DORCAS M Primary Care Unavailable HOY, DORCAS M Referring [...] Unavailable HOY, DORCAS M Primary Care Unavailable Dorcas Aguirre MD Primary Care Provider [phone] MELISSA SABA Attending Unavailable ELOISA MUSTAFA Attending Unavailable PETITTELOISA Mendez Attending Unavailable MELISSA SABA Attending Unavailable Saranya Butcher Attending Unavaila ble ButcherSaranya Referring Unavaila ble Hoy, Dorcas M Primary Care Unavailable ButcherSaranya lemon Attending Unavaila ble Hoy, Dorcas M Referring Unavailable Hoy, Dorcas M Primary Care Unavailable ButcherSaranya Attending Unavaila ble Hoy, Dorcas M Referring Unavailable Hoy, Dorcas M Primary Care Unavailable Saranya Butcher Attending Unavaila ble Hoy, Dorcas M Referring Unavailable Hoy, Dorcas M Primary Care Unavailable Butcher, Saranya Byrne Attending Unavaila ble Hoy, Dorcas M Referring Unavailable Hoy, Dorcas M Primary Care Unavailable Hoy, Dorcas M Referring Unavailable Hoy, Dorcas M Primary Care Unavailable Anu Grimes Attending Unavailable Medications Current Medications Medication Drug [...] Start: 04-01-2017 take 2 tablets by mo uth once daily before breakfast lisinopril (PRINIVIL,ZESTRIL) 10 [...] delayed release oral tablet (11 sources) Start: phenazopyridine (Pyridium) 200 MG tablet 08/25/2022 Active 0.25 mg, 0.5 mg dose 1.5 ml semaglutide 1.34 mg/ml pen injector (2 sources) Start: semaglutide 0.25 mg or 0.5 mg(2 mg/1.5 mL) pen injector INJECT 25 UNITS (0.25MG) SUBCUTANEOUSLY ONCE WEEKLY ON THE SAME DAY 05/28/2024 Active simvastatin 20 mg oral tablet (20 sources) HMG-CoA Reductase Inhibitor Start: take 1 tablet by mouth once daily [...] tablet (3 sources) Allylamine Antifungal Start: End: 024 take 1 tablet by mouth once daily [...] needed promethazine (PHENERGAN) suppository 25 mg sennosides, care home 8.6 mg oral tablet (1 source) Start: [...] soft tissue, and skin] 09-19-2024 Episodic Osteoarthritis (16 sources) Osteoarthritis of left hip joint; Translations: [...] (1 source) Patient encounter status; Translations: [Other termite treater (current) drug therapy] Onset: 04-05-2017 03-05-2021 Episodic Other aftercare (6 sources) Long-term current use of drug therapy; Translations: [Other fci (current) drug therapy] Onset: 04-05-2017 04-05-2017 Episodic [...] 6.0 ml Estimated blood loss: 1.0 ml [facility] [address] Complexity: Intermediate Final length (cm): 4.7 Reason [...] uncontrollable bleeding, or complications. Dressing type: bandage [facility] No Panel InformationOrdered By: Gaye Angulo on 11-07-2024 [facility] No Panel Informationon 09-19 Type of biopsy: [...] taken Amount of lidocaine used: 0.3 cc SenseDat[employer]ar e Type of biopsy: tangential Informed consent: [...] taken Amount of lidocaine used: 0.4 cc Hyperoptic e Surgical Pathologyon 025 Surgical Pathology Normal [facility] Comment on above: Result Comment: [facility] [address] [place] [address] Surgical Pathology Consultation Patient Name:BECKY PONCE:1945 (Age: 78)Gender:FTaken:06/11/2024Reported:06/19/2024Physician(s):Sanjuanita Whipple M.D. ([phone])Copy To: Rec. #:[id number]: #[id number] Final Pathologic Diagnosis 1. Cervix, cone biopsy: Negative for atypia/dysplasia; largely denuded cervical stroma. 2. Endocervical curettage and endometrial brushing: Atrophic-appearing squamous epithelium without atypia. No glandular epithelium identified. Report Electronically Signed Out 06/19/2024Jerzy Grant MD [facility], [address] [place] [address], License number: [id number]. Clinical History Abnormal Pap. 1. Marked at 12 o'clock. Gross Description 1. Received in formalin labeled IHNAT, cervical cone is an oriented portion of [...] o'clock Fixation Time: Tissue removed from patient: 1514 Time specimen placed in formalin: 1518 Cold ischemic time: 4 minutes Total fixation time: 27.25 hours (4,ns,[id number], m1) TB. 2. Received in formalin labeled IHNAT, ECC is a Telfa pad and plastic metal brush with gupta delicate soft tissue bits, 0.9 x 0.2 x 0.1 cm in aggregate. The specimens are filtered and submitted in single cassette. (1,ns,[id number], m1) TB tg06/12/2024NSK Specimen(s) Received 1: Cervical cone 2: Endocervical curettings and endometrial brushings Fee Codes(s): 1; 20851 2; 90242 ECG 12 leadon 05-21-2024 TRACEMASTERVUE [facility] Cytologyon 04-10-2024 Cytology Normal [facility] Comment on above: Result Comment: [facility] [address] [place] [address] Gynecologic Cytology Consultation Patient Name:BECKY PONCE:1945 (Age: 78)Gender:FTaken:4Reported:04/11/2024hysician(s):Sanjuanita Whipple M.D. ([phone])Copy To: Rec. #:[id number]: #[id number] Final Cytologic Interpretation ThinPrep Pap Test (Cervical): Satisfactory for evaluation. NEGATIVE FOR INTRAEPITHELIAL LESION OR MALIGNANCY. The cytologic changes of atrophy are noted. [facility] [place]/04/11/2024 Interpretation performed at [facility], [address] [place] [address], License number: [id number]. 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 The Pap test is primarily effective for the diagnosis and prevention of squamous cell carcinoma. Regular screening is critical for prevention. ThinPrep liquid-based slides, which meet the Legal Librarian criteria for automated screening, have been screened by the ThinPrep Imaging System (as of 01/16/07) along with an additional manual rescreening by a food service worker and, if indicated, by a pathologist. HIGH RISK HPV W/GENOon 04-10 HPV 31+33+35+39+45+51+52 +56+58+59+66+68 DNA STEVE+probe Ql (Cvx) HPV SPECIMEN TYPE ThinPrep HPV 16 Negative (qualifier value) HPV 18 Negative (qualifier value) OTHER HIGH RISK HPV Positive (qualifier value) For the DNA of any or combination of the following HPV types: 31,33,35,45, 52,56,58,59,66 and 68. Normal [facility] Comment on above: Performed By: #### 7 1431-1 #### [facility] ([id number]) [address] [facility], [place] [address] [facility] ([id number]) [address] [place] [address], [address] [place] [address] Surgical Pathologyon 024 Surgical Pathology Normal [facility] Comment on above: Result Comment: [facility] [employer] [facility] [address] [place] [id number] Surgical Pathology Consultation Patient Name:BECKY PONCE:1945 (Age: 78)Gender:FTaken:4Reported:04/19/2024hysician(s):Sanjuanita Whipple M.D. ([phone])Copy To: Rec. #:[id number]: #[id number] Final Pathologic Diagnosis 1. Cervix, biopsy @12:00: Low grade squamous intraepithelial lesion. 2. Endocervix, curettage; Low grade squamous intraepithelial lesion. Report Electronically Signed Out 04/19/2024Gene MD Ruyd Interpretation performed at [facility], [address] [place] [address], License number: [id number]. 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 Abnormal pap with HPV. Gross Description 1. Received in formalin labeled IHNAT, 12 o'clock is a light gupta soft tissue bit, 0.3 cm. The specimen is filtered and entirely submitted in a single cassette. (1, ns, [id number],m4) DM. 2. Received in formalin labeled IHNAT, ECC is a wired brush with pale-gupta soft tissue fragments admixed with mucoid material, 0.4 x 0.2 x 0.1 cm in aggregate. The specimen is filtered and entirely submitted in a single cassette. (1, ns, [id number],m4) DM. dm/04/11/2024GR Specimen(s) Received 1: Cervical biopsy 12 o'clock position 2: Endocervical curettings Fee Codes(s): 1; 13659 2; 25951 No Panel Informationon 03-20 [facility] Visit Report on 10-20-2022 Plastic Surgery Visit Report [facility] Surgery [address], [address] [place] [address] OFFICE VISIT Date of Service: 10/20/22 MR#: [id number] Acct: [id number] Name: BECKY PONCE Rep #: [id number] : 1945 Provider: Dr. Gertrudis grimaldo MD Age/Sex: 76/F Location: [facility] Status: Signed Intake Vital Signs 10/20/22 13:35 Height 5 ft 4 in Weight: 140 lb 6 oz BMI 24.0 Body Surface Area 1.68 BP 157/75 H Blood Pressure Location Rt brachial Position Sitting Respiration 16 Pulse 85 Pulse Source Monitor Temp 97.4 F L Temp Source Temporal Pulse Oximetry (%) 97 Oxygen Delivery Method room air Intake Visit Reasons: CONSULT-LIPOSUCTION Order Entry Specialist Required: No Accompanied by: None Is patient [...] Montero Signature: Date (if applicable) CC: Normal [facility] CBC AUTO DIFFon 06-01-2022 BASO # 0.0 103/ul Normal 0.0-0.1 [facility] Comment on above: Performed By: #### F T3, TSH, T4 #### [facility] [address] [place] [address] Dr. Abelardo Barrett Basophils/100 WBC (Bld) 0.4 % Normal 0.2-2.0 [facility] Comment on above: Performed By: #### F T3, TSH, T4 #### [facility] [address] [place] [address] Dr. Abelardo Barrett EO # 0.1 103/ul Normal 0.0-0.7 [facility] Comment on above: Performed By: #### F T3, TSH, T4 #### [facility] [address] [place] [address] Dr. Abelardo Barrett Eosinophils/100 WBC (Bld) 2.3 % Normal 0.9-7.0 [facility] Comment on above: Performed By: #### F T3, TSH, T4 #### [facility] [address] [place] [address] Dr. Abelardo Barrett Erythrocyte distribution width (RBC) [Ratio] 13.1 % Normal 11.0-15.0 [facility] Comment on above: Performed By: #### F T3, TSH, T4 #### [facility] [address] [place] [address] Dr. Abelardo Barrett Hematocrit (Bld) [Volume fraction] 23.4 % Critically low 36.0-48.0 [facility] Comment on above: Performed By: #### F T3, TSH, T4 #### [facility] [address] [place] [address] Dr. Abelardo Barrett Hemoglobin (Bld) [Mass/Vol] 7.7 g/dL Critically low 12.0-16.0 [facility] Comment on above: Performed By: #### F T3, TSH, T4 #### [facility] [address] [place] [address] Dr. Abelardo Barrett IG # 0.02 10e3/ul Normal 0.00-0.03 [facility] Comment on above: Performed By: #### F T3, TSH, T4 #### [facility] [address] [address] [address] Abelardo Barrett IG % 0.4 % Normal 0.0-0.5 [facility] Comment on above: Performed By: #### F T3, TSH, T4 #### [facility] [address] [address] [address] Abelardo Barrett LYMPH # 0.9 103/ul Critically low 1.2-3.8 [facility] Comment on above: Performed By: #### F T3, TSH, T4 #### [facility] [address] [address] [address] Abelardo Barrett Lymphocytes/100 WBC (Bld) 16.5 % Critically low 20.5-60.0 [facility] Comment on above: Performed By: #### F T3, TSH, T4 #### [facility] [address] [address] [address] Abelardo Barrett MANUAL DIFF REQ NO Normal [facility] Comment on above: Performed By: #### F T3, TSH, T4 #### [facility] [address] [address] [address] Abelardo Barrett MCH (RBC) [Entitic mass] 30.8 pg Normal 26.7-34.0 [facility] Comment on above: Performed By: #### F T3, TSH, T4 #### [facility] [address] [address] [address] Abelardo Barrett MCHC (RBC) [Mass/Vol] 32.9 g/dL Normal 29.9-35.2 [facility] Comment on above: Performed By: #### F T3, TSH, T4 #### [facility] [address] [address] [address] Abelardo Barrett MCV (RBC) [Entitic vol] 93.6 fL Normal 81.0-99.0 [facility] Comment on above: Performed By: #### F T3, TSH, T4 #### [facility] [address] [address] [address] Abelardo Barrett MONO # 1.0 103/ul Critically high 0.3-0.8 [facility] Comment on above: Performed By: #### F T3, TSH, T4 #### [facility] [address] [place] [address] Dr. Abelardo Barrett Monocytes/100 WBC (Bld) 17.1 % Critically high 1.7-12.0 [facility] Comment on above: Performed By: #### F T3, TSH, T4 #### [facility] [address] [place] [address] Dr. Abelardo Barrett NEUT # 3.5 103/ul Normal 1.4-6.5 [facility] Comment on above: Performed By: #### F T3, TSH, T4 #### [facility] [address] [place] [address] Dr. Abelardo Barrett Neutrophils/100 WBC (Bld) 63.3 % Normal 43.0-75.0 [facility] Comment on above: Performed By: #### F T3, TSH, T4 #### [facility] [address] [place] [address] Dr. Abelardo Barrett Platelet mean volume (Bld) [Entitic vol] 8.8 fL Critically low 9.5-13.5 [facility] Comment on above: Performed By: #### F T3, TSH, T4 #### [facility] [address] [place] [address] Dr. Abelardo Barrett PLT 255 103/ul Normal 150-450 [facility] Comment on above: Performed By: #### F T3, TSH, T4 #### [facility] [address] [place] [address] Dr. Abelardo Barrett RBC 2.50 106/ul Critically low 4.20-5.40 [facility] Comment on above: Performed By: #### F T3, TSH, T4 #### [facility] [address] [place] [address] Dr. Abelardo Barrett WBC 5.6 103/ul Normal 4.0-11.0 [facility] Comment on above: Performed By: #### F T3, TSH, T4 #### [facility] [address] [place] [address] Dr. Abelardo Barrett ER URINE PROFILEon 3 Bilirubin Ql (U) Negative Normal NEGATIVE [facility] Comment on above: Performed By: #### F T3, TSH, T4 #### [facility] [address] [place] [address] Dr. Abelardo Barrett Clarity (U) CLEAR Normal CLEAR [facility] Comment on above: Performed By: #### F T3, TSH, T4 #### [facility] [address] [address] [address] Abelardo Barrett Color (U) LT. YELLOW Normal YELLOW [facility] Comment on above: Performed By: #### F T3, TSH, T4 #### [facility] [address] [place] [address] Dr. Abelardo BOWMAN A micrscopic examination will be performed if indicated. Normal [facility] Comment on above: Performed By: #### F T3, TSH, T4 #### [facility] [address] [place] [address] Dr. Abelardo Barrett Glucose Ql (U) Negative Normal NEGATIVE [facility] Comment on above: Performed By: #### F T3, TSH, T4 #### [facility] [address] [place] [address] Dr. Abelardo Barrett Hemoglobin Ql (U) Negative Normal NEGATIVE [facility] Comment on above: Performed By: #### F T3, TSH, T4 #### [facility] [address] [place] [address] Dr. Abelardo Barrett Ketones Ql (U) Negative Normal NEGATIVE [facility] Comment on above: Performed By: #### F T3, TSH, T4 #### [facility] [address] [address] [address] Abelardo Barrett LEUKOCYTES TRACE Abnormal NEGATIVE [facility] Comment on above: Performed By: #### F T3, TSH, T4 #### [facility] [address] [place] [address] Dr. Abelardo Barrett Nitrite Ql (U) Negative Normal NEGATIVE [facility] Comment on above: Performed By: #### F T3, TSH, T4 #### [facility] [address] [place] [address] Dr. Abelardo Barrett pH (U) 6.5 [pH] Normal 5-9 [facility] Comment on above: Performed By: #### F T3, TSH, T4 #### [facility] [address] [place] [address] Dr. Abelardo Barrett SPEC GRAVITY <=1.005 Abnormal 1.005-<=1.0 25 [facility] Comment on above: Performed By: #### F T3, TSH, T4 #### [facility] [address] [place] [address] Dr. Abelardo Barrett UA PROTEIN Negative Normal NEGATIVE/ TRACE [facility] Comment on above: Performed By: #### F T3, TSH, T4 #### [facility] [address] [place] [address] Dr. Abelardo Barrett UR MICRO IND INDICATED Normal [facility] Comment on above: Performed By: #### F T3, TSH, T4 #### [facility] [address] [place] [address] Dr. Abelardo Barrett Urobilinogen Qn (U) 0.2 {Erik'U}/dL Normal 0.2 - 1. 0 [facility] Comment on above: Performed By: #### F T3, TSH, T4 #### [facility] [address] [place] [address] Dr. Abelardo Barrett PROF 14(COMP METB)on 023 Albumin [Mass/Vol] 2.2 g/dL Critically low 3.4-5.0 [facility] Comment on above: Performed By: #### F T3, TSH, T4 #### [facility] [address] [place] [address] Dr. Abelardo Barrett Albumin/Globulin [Mass ratio] 0.6 {ratio} Normal [facility] Comment on above: Performed By: #### F T3, TSH, T4 #### [facility] [address] [place] [address] Dr. Abelardo Barrett ALP [Catalytic activity/Vol] 49 U/L Normal 46-116 [facility] Comment on above: Performed By: #### F T3, TSH, T4 #### [facility] [address] [address] [address] Abelardo Barrett ALT [Catalytic activity/Vol] 36 U/L Normal 14-59 [facility] Comment on above: Performed By: #### F T3, TSH, T4 #### [facility] [address] [address] [address] Abelardo Barrett Anion gap [Moles/Vol] 12.2 mmol/L Normal [facility] Comment on above: Performed By: #### F T3, TSH, T4 #### [facility] [address] [address] [address] Abelardo Barrett AST [Catalytic activity/Vol] 43 U/L Critically high 15-37 [facility] Comment on above: Performed By: #### F T3, TSH, T4 #### [facility] [address] [address] [address] Abelardo Barrett Bilirubin [Mass/Vol] 0.7 mg/dL Normal 0.2-1.0 [facility] Comment on above: Performed By: #### F T3, TSH, T4 #### [facility] [address] [address] [address] Abelardo Barrett Calcium [Mass/Vol] 11.0 mg/dL Critically high 8.5-10.1 [facility] Comment on above: Performed By: #### F T3, TSH, T4 #### [facility] [address] [address] [address] Abelardo Barrett Chloride [Moles/Vol] 98 mmol/L Normal 98-107 [facility] Comment on above: Performed By: #### F T3, TSH, T4 #### [facility] [address] [address] [address] Abelardo Barrett CO2 [Moles/Vol] 31.7 mmol/L Normal 21.0-32.0 [facility] Comment on above: Performed By: #### F T3, TSH, T4 #### [facility] [address] [address] [address] Abelardo Barrett Creatinine [Mass/Vol] 1.17 mg/dL Critically high 0.55-1.02 [facility] Comment on above: Performed By: #### F T3, TSH, T4 #### [facility] [address] [place] [address] Dr. Abelardo Barrett EGFR-AF CROATIAN 55 mL/min/1.73m2 Critically low >=60 [facility] Comment on above: Performed By: #### F T3, TSH, T4 #### [facility] [address] [place] [address] Dr. Abelardo Barrett EGFR-NON AF CROATIAN 45 mL/min/1.73m2 Critically low >=60 [facility] Comment on above: Performed By: #### F T3, TSH, T4 #### [facility] [address] [place] [address] Dr. Abelardo Barrett Globulin (S) [Mass/Vol] 3.4 g/dL Normal [facility] Comment on above: Performed By: #### F T3, TSH, T4 #### [facility] [address] [place] [address] Dr. Abelardo Barrett Glucose [Mass/Vol] 107 mg/dL Critically high 74-106 [facility] Comment on above: Performed By: #### F T3, TSH, T4 #### [facility] [address] [place] [address] Dr. Abelardo Barrett Potassium [Moles/Vol] 4.9 mmol/L Normal 3.5-5.1 [facility] Comment on above: Performed By: #### F T3, TSH, T4 #### [facility] [address] [place] [address] Dr. Abelardo Barrett Protein [Mass/Vol] 5.6 g/dL Critically low 6.4-8.2 [facility] Comment on above: Performed By: #### F T3, TSH, T4 #### [facility] [address] [place] [address] Dr. Abelardo Barrett Sodium [Moles/Vol] 137 mmol/L Normal 136-145 [facility] Comment on above: Performed By: #### F T3, TSH, T4 #### [facility] [address] [address] [address] Abelardo Barrett Urea nitrogen [Mass/Vol] 27.0 mg/dL Critically high 7.0-18.0 [facility] Comment on above: Performed By: #### F T3, TSH, T4 #### [facility] [address] [place] [address] Dr. Abelardo Barrett Urea nitrogen/Creatinine [Mass ratio] 23.1 mg/mg Normal [facility] Comment on above: Performed By: #### F T3, TSH, T4 #### [facility] [address] [place] [address] Dr. Abelardo Barrett URINE MICROSCOPIC ONLYon BACTERIA TRACE Abnormal NONE SEEN [facility] Comment on above: Performed By: #### F T3, TSH, T4 #### [facility] [address] [place] [address] Dr. Abelardo Barrett Bacteria identified Cx Nom (U) NOT INDICATED Normal [facility] Comment on above: Performed By: #### F T3, TSH, T4 #### [facility] [address] [place] [address] Dr. Abelardo Barrett CAST NONE SEEN Normal NONE SEEN [facility] Comment on above: Performed By: #### F T3, TSH, T4 #### [facility] [address] [place] [address] Dr. Abelardo Barrett Crystals LM Nom (Urine sed) NONE SEEN Normal NONE SEEN [facility] Comment on above: Performed By: #### F T3, TSH, T4 #### [facility] [address] [place] [address] Dr. Abelardo Barrett Epithelial cells LM Ql (Urine sed) RARE Normal NONE SEEN /RARE [facility] Comment on above: Performed By: #### F T3, TSH, T4 #### [facility] [address] [place] [address] Dr. Abelardo Barrett MUCOUS NONE SEEN Normal NONE SEEN [facility] Comment on above: Performed By: #### F T3, TSH, T4 #### [facility] [address] [place] [address] Dr. Abelardo Barrett RBC 0-2 Normal 0-2 [facility] Comment on above: Performed By: #### F T3, TSH, T4 #### [facility] [address] [place], [place] [address] Dr. Abelardo Barrett WBC 0-2 Abnormal NONE SEEN [facility] Comment on above: Performed By: #### F T3, TSH, T4 #### [facility] [address] [place], [place] [address] Dr. Abelardo Barrett Bacteria Spec Anaerobe Culto n 05-27-2022 Bacteria identified Anaer cx Nom (Unsp spec) Culture, Anaerobic Status = F No anaerobes grown after 4 days. Normal [facility] Comment on above: Performed By: #### 1 988-5 #### [facility] [address] [place] [address] Bacteria identified Anaer cx Nom (Unsp spec) Culture, Anaerobic Status = F No anaerobes grown after 4 days. Normal [facility] Comment on above: Performed By: #### 1 988-5 #### [facility] [address] [place] [address] Bacteria Tiss Culton 023 Bacteria identified Cx [...] a previously preliminary verified report. Normal [facility] Comment on above: Performed By: #### 1 988-5 #### [facility] [address] [place] [address] Bacteria identified Cx Nom (Tiss) Culture, Tissue [...] a previously preliminary verified report. Normal [facility] Comment on above: Performed By: #### 1 988-5 #### [facility] [address] [place] [address] Blood type and Indirect anti body screen panel (Bld)on 05-27-2022 ABO group Nom (Bld) O Normal [facility] Comment on above: Performed By: #### 3 4532-2 #### [facility] [address] [place] [address] Rh Type Negative Normal [facility] Comment on above: Performed By: #### 3 4532-2 #### [facility] [address] [place] [address] ABO group Nom (Bld) O [facility] Blood group antibody screen Ql Negative [facility] Rh Nom (Bld) Negative [facility] Fungus Skin Culton 3 Fungus identified Cx Nom (Skin) Culture, Fungus Status = F No growth at 4 weeks Normal [facility] Comment on above: Performed By: #### 3 4532-2 #### [facility] [address] [place] [address] Fungus identified Cx Nom (Skin) Culture, Fungus Status = F No growth at 4 weeks Normal [facility] Comment on above: Performed By: #### 1 988-5 #### [facility] [address] [place] [address] Glucose Auto test strip (Bld ) [Mass/Vol]on 05-27-2022 Glucose [Mass/Vol] 98 mg/dL Normal 70-99 [facility] Comment on above: Performed By: #### 2 340-8 #### [facility] [address] [place] [address] Glucose [Mass/Vol] 98 mg/dL 70 - 99 mg/dL [facility] Interpretation and review of laboratory results Normal [facility] Mycobacterium Spec Culton Mycobacterium sp identified Org specific cx Nom (Unsp spec) Culture AFB Status = C No growth at 8 weeks AFB Stain Status = F No acid fast bacilli seen Normal [facility] Comment on above: Performed By: #### 1 988-5 #### [facility] [address] [place] [address] Mycobacterium sp identified Org specific cx Nom (Unsp spec) Culture AFB Status = C No growth at 8 weeks AFB Stain Status = F No acid fast bacilli seen Normal [facility] Comment on above: Performed By: #### 5 43-9 #### [facility] [address] [place] [address] Performed By: #### 1 988-5 #### [facility] [address] [place] [address] Pathology studyon 05-27-2022 Pathology study Left hip [...] interpretation of this case was performed at [facility]. These tests have not [...] performed at [facility], [address] [place] [address]. Microscopic examination was performed. Normal [facility] Comment on above: Performed By: #### 1 1526-1 #### [facility] [address] [place] [address] [facility] [address] [place] [address] SARS-CoV-2 (COVID-19) RNA NA A+probe Ql (Resp)on 05-27-2022 Interpretation and review of laboratory results Normal [facility] SARS-CoV-2 (COVID-19) RdRp gene STEVE+probe Ql (Resp) Not detected Not Detected [facility] SARS-CoV-2 RNA Resp Ql STEVE+p robeon 05-27-2022 SARS-CoV-2 (COVID-19) RNA STEVE+probe Ql (Resp) Not detected Normal Not Detected [facility] Comment on above: Performed By: #### 9 4500-6 #### [facility] [address] [facility] [place] [address] XR FLUORO UP TO 1 HOUR (STAT ISTICS)(NO REPORT)on 05-27-2022 XR FLUORO UP TO 1 HOUR (STATISTICS)(NO REPORT) This order has been auto-finalized and does not contain a result. Normal [facility] XR Fluoro Up To 1 Hour [...] Edit Transcribed Date: 05/27/2022 14:17 Normal [facility] XR Pelvis 1-2 Viewson 2022 No [...] Edit Transcribed Date: 05/27/2022 14:17 [facility] Radiology Study observation (narrative) [facility] XR Pelvis 1-2 ViewsOrdered B y: Miguelangel Martinez on 05-27-2022 [employer] Phone: Blood type and Indirect anti body screen panel (Bld)on 05-17-2022 ABO group Nom (Bld) O Normal [facility] Comment on above: Performed By: #### 3 4532-2 #### [facility] [address] [place] [address] Rh Type Negative Normal [facility] Comment on above: Performed By: #### 3 4532-2 #### [facility] [address] [place] [address] CRP [Mass/Vol]on 05-17-2022 Anion gap [Moles/Vol] 11 mmol/L Normal 6-18 [facility] Comment on above: Order Comment: Sampl e received unlabeled or with name discrepancy. The Physician, Clinican or authorized designee has authorized the release of the results and assumes responsibility for sample identification. Performed By: #### 1 988-5 #### [facility] [address] [place] [address] Calcium [Mass/Vol] 10.9 mg/dL High 8.9-10.3 [facility] Comment on above: Order Comment: Sampl e received unlabeled or with name discrepancy. The Physician, Clinican or authorized designee has authorized the release of the results and assumes responsibility for sample identification. Performed By: #### 1 988-5 #### [facility] [address] [place] [address] Chloride [Moles/Vol] 102 mmol/L Normal 98-107 [facility] Comment on above: Order Comment: Sampl e received unlabeled or with name discrepancy. The Physician, Clinican or authorized designee has authorized the release of the results and assumes responsibility for sample identification. Performed By: #### 1 988-5 #### [facility] [address] [place] [address] CO2 [Moles/Vol] 27 mmol/L Normal 22-32 [facility] Comment on above: Order Comment: Sampl e received unlabeled or with name discrepancy. The Physician, Clinican or authorized designee has authorized the release of the results and assumes responsibility for sample identification. Performed By: #### 1 988-5 #### [facility] [address] [place] [address] Creatinine [Mass/Vol] 0.92 mg/dL Normal 0.60-1.30 [facility] Comment on above: Order Comment: Sampl e received unlabeled or with name discrepancy. The Physician, Clinican or authorized designee has authorized the release of the results and assumes responsibility for sample identification. Performed By: #### 1 988-5 #### [facility] [address] [place] [address] GFR/1.73 sq M.predicted among non-blacks MDRD (S/P/Bld) [Vol rate/Area] 65 mL/min/{1.73_m2} Normal >=60 [facility] Comment on above: Order Comment: Sampl e received unlabeled or with name discrepancy. The Physician, Clinican or authorized designee has authorized the release of the results and assumes responsibility for sample identification. Result Comment: Effe ctive February 07, 2022, calculation based on the?Chronic Kidney Disease Epidemiology Collaboration (CKD-EPI) equation refit?without adjustment for race. Performed By: #### 1 988-5 #### [facility] [address] [place] [address] Glucose [Mass/Vol] 86 mg/dL Normal 70-99 [facility] Comment on above: Order Comment: Sampl e received unlabeled or with name discrepancy. The Physician, Clinican or authorized designee has authorized the release of the results and assumes responsibility for sample identification. Performed By: #### 1 988-5 #### [facility] [address] [place] [address] Potassium [Moles/Vol] 4.6 mmol/L Normal 3.6-5.1 [facility] Comment on above: Order Comment: Sampl e received unlabeled or with name discrepancy. The Physician, Clinican or authorized designee has authorized the release of the results and assumes responsibility for sample identification. Performed By: #### 1 988-5 #### [facility] [address] [place] [address] Sodium [Moles/Vol] 140 mmol/L Normal 136-145 [facility] Comment on above: Order Comment: Sampl e received unlabeled or with name discrepancy. The Physician, Clinican or authorized designee has authorized the release of the results and assumes responsibility for sample identification. Performed By: #### 1 988-5 #### [facility] [address] [place] [address] Urea nitrogen [Mass/Vol] 36 mg/dL High 8-20 [facility] Comment on above: Order Comment: Sampl e received unlabeled or with name discrepancy. The Physician, Clinican or authorized designee has authorized the release of the results and assumes responsibility for sample identification. Performed By: #### 1 988-5 #### [facility] [address] [place] [address] Urea nitrogen/Creatinine [Mass ratio] 39.1 mg/mg High 12.0-20.0 [facility] Comment on above: Order Comment: Sampl e received unlabeled or with name discrepancy. The Physician, Clinican or authorized designee has authorized the release of the results and assumes responsibility for sample identification. Performed By: #### 1 988-5 #### [facility] [address] [place] [address] Hemogram and platelets WO di fferential panel (Bld)on 05-17-2022 Sed Rate 18 mm/hr Normal 0-20 [facility] Comment on above: Performed By: #### 2 4317-0 #### [facility] [address] [place] [address] MG MAMM SCREEN 3D YONI CADon 04-07-2022 MG MAMM SCREEN 3D YONI CAD Patient: BECKY PONCE Exam Date: 04/07/2022 : 1945 Gender:F Ordering : DR KERVIN OSORIO Admission #: [id number] Family : DR DORCAS AGUIRRE . Order #: [id number] CLICK HERE TO VIEW EXAM RADIOLOGY REPORT [...] Treatments None Family Cancers None LOCATION: [facility] BREAST COMPOSITION: Heterogeneously dense,which may obscure small [...] MD on 04/07/2022 at 11:00 Normal [facility] CBC AUTO DIFFon 03-30-2022 BASO # 0.0 103/ul Normal 0.0-0.1 [facility] Comment on above: Performed By: #### F T3, TSH, T4 #### [facility] [address] [place] [address] [address] Abelardo Barrett Basophils/100 WBC (Bld) 0.9 % Normal 0.2-2.0 [facility] Comment on above: Performed By: #### F T3, TSH, T4 #### [facility] [address] [place] [address] [address] Abelardo Barrett EO # 0.1 103/ul Normal 0.0-0.7 [facility] Comment on above: Performed By: #### F T3, TSH, T4 #### [facility] [address] [place] [address] Dr. Abelardo Barrett Eosinophils/100 WBC (Bld) 2.0 % Normal 0.9-7.0 [facility] Comment on above: Performed By: #### F T3, TSH, T4 #### [facility] [address] [place] [address] Dr. Abelardo Barrett Erythrocyte distribution width (RBC) [Ratio] 12.5 % Normal 11.0-15.0 [facility] Comment on above: Performed By: #### F T3, TSH, T4 #### [facility] [address] [place] [address] Dr. Abelardo Barrett Hematocrit (Bld) [Volume fraction] 37.9 % Normal 36.0-48.0 [facility] Comment on above: Performed By: #### F T3, TSH, T4 #### [facility] [address] [place] [address] Dr. Abelardo Barrett Hemoglobin (Bld) [Mass/Vol] 12.6 g/dL Normal 12.0-16.0 [facility] Comment on above: Performed By: #### F T3, TSH, T4 #### [facility] [address] [place] [address] Dr. Abelardo Barrett IG # 0.01 10e3/ul Normal 0.00-0.03 [facility] Comment on above: Performed By: #### F T3, TSH, T4 #### [facility] [address] [place] [address] Dr. Abelardo Barrett IG % 0.2 % Normal 0.0-0.5 [facility] Comment on above: Performed By: #### F T3, TSH, T4 #### [facility] [address] [place] [address] Dr. Abelardo Barrett LYMPH # 1.2 103/ul Normal 1.2-3.8 [facility] Comment on above: Performed By: #### F T3, TSH, T4 #### [facility] [address] [place] [address] Dr. Abelardo Barrett Lymphocytes/100 WBC (Bld) 26.5 % Normal 20.5-60.0 [facility] Comment on above: Performed By: #### F T3, TSH, T4 #### [facility] [address] [place] [address] Dr. Abelardo Barrett MANUAL DIFF REQ NO Normal [facility] Comment on above: Performed By: #### F T3, TSH, T4 #### [facility] [address] [place] [address] Dr. Abelardo Barrett MCH (RBC) [Entitic mass] 29.9 pg Normal 26.7-34.0 [facility] Comment on above: Performed By: #### F T3, TSH, T4 #### [facility] [address] [place] [address] Dr. Abelardo Barrett MCHC (RBC) [Mass/Vol] 33.2 g/dL Normal 29.9-35.2 [facility] Comment on above: Performed By: #### F T3, TSH, T4 #### [facility] [address] [place] [address] Dr. Abelardo Barrett MCV (RBC) [Entitic vol] 90.0 fL Normal 81.0-99.0 [facility] Comment on above: Performed By: #### F T3, TSH, T4 #### [facility] [address] [place] [address] Dr. Abelardo Barrett MONO # 0.5 103/ul Normal 0.3-0.8 [facility] Comment on above: Performed By: #### F T3, TSH, T4 #### [facility] [address] [place] [address] Dr. Abelardo Barrett Monocytes/100 WBC (Bld) 10.1 % Normal 1.7-12.0 [facility] Comment on above: Performed By: #### F T3, TSH, T4 #### [facility] [address] [place] [address] Dr. Abelardo Barrett NEUT # 2.8 103/ul Normal 1.4-6.5 [facility] Comment on above: Performed By: #### F T3, TSH, T4 #### [facility] [address] [place] [address] Dr. Abelardo Barrett Neutrophils/100 WBC (Bld) 60.3 % Normal 43.0-75.0 [facility] Comment on above: Performed By: #### F T3, TSH, T4 #### [facility] [address] [place] [address] Dr. Abelardo Barrett Platelet mean volume (Bld) [Entitic vol] 8.6 fL Critically low 9.5-13.5 [facility] Comment on above: Performed By: #### F T3, TSH, T4 #### [facility] [address] [place] [address] [address] Abelardo Barrett PLT 248 103/ul Normal 150-450 [facility] Comment on above: Performed By: #### F T3, TSH, T4 #### [facility] [address] [place] [address] Dr. Abelardo Barrett RBC 4.21 106/ul Normal 4.20-5.40 [facility] Comment on above: Performed By: #### F T3, TSH, T4 #### [facility] [address] [place] [address] Dr. Abelardo Barrett WBC 4.6 103/ul Normal 4.0-11.0 [facility] Comment on above: Performed By: #### F T3, TSH, T4 #### [facility] [address] [place] [address] Dr. Abelardo Barrett FREE THYROXINE INDEX T7on FTI 2.73 Normal 1.30-4.50 [facility] Comment on above: Performed By: #### C MP, LIPID #### [facility] [address] [place] [address] Dr. Abelardo Barrett T3U 35.0 % Normal 30.0-39.0 [facility] Comment on above: Performed By: #### C MP, LIPID #### [facility] [address] [place] [address] Dr. Abelardo Barrett T4 [Mass/Vol] 7.80 ug/dL Normal 4.80-13.90 [facility] Comment on above: Performed By: #### C MP, LIPID #### [facility] [address] [place] [address] [address] Abelardo Barrett GLYCOHEMOGLOBIN A1Con 2021 ADA RECOMMENDATION SEE BELOW Normal [facility] Comment on above: Result Comment: ADA RECOMMENDED LIMIT 4.0 - 6.0 ADA THERAPEUTIC TARGET < 7.0 ACTION SUGGESTED > 7.0 Performed By: #### C MP, LIPID #### [facility] [address] [place] [address] [address] Abelardo Barrett Glucose [Mass/Vol] 123 mg/dL Normal [facility] Comment on above: Performed By: #### C MP, LIPID #### [facility] [address] [place] [address] [address] Abelardo Barrett HbA1c (Bld) [Mass fraction] 5.9 % Normal 4.5-6.2 [facility] Comment on above: Performed By: #### C MP, LIPID #### [facility] [address] [place] [address] Dr. Abelardo Barrett IRONon 03-30-2022 Iron [Mass/Vol] 94.0 ug/dL Normal 50.0-170.0 [facility] Comment on above: Performed By: #### C MP, LIPID #### [facility] [address] [place] [address] Dr. Abelardo Barrett LIPID PROFILEon 03-30-2022 CHOL-HDL RATIO NORM SEE BELOW Normal [facility] Comment on above: Result Comment: 3.3 - 4.4 LOW RISK 4.4 - 7.1 AVERAGE RISK 7.1 - 11.0 MODERATE RISK >11.0 HIGH RISK Performed By: #### C MP, LIPID #### [facility] [address] [place] [address] Dr. Abelardo Barrett Cholesterol [Mass/Vol] 186 mg/dL Normal <=200 [facility] Comment on above: Performed By: #### C MP, LIPID #### [facility] [address] [place] [address] [address] Abelardo Barrett Cholesterol in HDL [Mass/Vol] 86 mg/dL Critically high 40-60 [facility] Comment on above: Performed By: #### C MP, LIPID #### [facility] [address] [place] [address] [address] Abelardo Barrett Cholesterol in LDL [Mass/Vol] 88.8 mg/dL Normal [facility] Comment on above: Performed By: #### C MP, LIPID #### [facility] [address] [place] [address] [address] Abelardo Barrett Cholesterol.total/Ch olesterol in HDL [Mass ratio] 2.2 {ratio} Normal [facility] Comment on above: Performed By: #### C MP, LIPID #### [facility] [address] [place] [address] [address] Abelardo Barrett HDL NORMAL > or = 60 mg/dl - LO W CARDIOVASCULAR RISK <40 mg/dl - HIGH CARDIOVASCULAR RISK Normal [facility] Comment on above: Performed By: #### C MP, LIPID #### [facility] [address] [place] [address] Dr. Abelardo Barrett LDL CALC NORMAL SEE BELOW Normal [facility] Comment on above: Result Comment: <100 mg/dl OPTIMAL 100 - 129 mg/dl NEAR OR ABOVE OPTIMAL 130 - 159 mg/dl BORDERLINE HIGH 160 - 189 mg/dl HIGH >190 mg/dl VERY HIGH Performed By: #### C MP, LIPID #### [facility] [address] [place] [address] Dr. Abelardo Barrett Triglyceride [Mass/Vol] 56 mg/dL Normal <=150 [facility] Comment on above: Performed By: #### C MP, LIPID #### [facility] [address] [place] [address] [address] Abelardo Barrett VLDL CALC 11.2 mg/dL Normal [facility] Comment on above: Performed By: #### C MP, LIPID #### [facility] [address] [place] [address] [address] Abelardo Barrett PROF 14(COMP METB)on 022 Albumin [Mass/Vol] 3.7 g/dL Normal 3.4-5.0 [facility] Comment on above: Performed By: #### C MP, LIPID #### [facility] [address] [place] [address] Dr. Abelardo Barrett Albumin/Globulin [Mass ratio] 1.0 {ratio} Normal [facility] Comment on above: Performed By: #### C MP, LIPID #### [facility] [address] [place] [address] Dr. Abelardo Barrett ALP [Catalytic activity/Vol] 59 U/L Normal 46-116 [facility] Comment on above: Performed By: #### C MP, LIPID #### [facility] [address] [place] [address] [address] Abelardo Barrett ALT [Catalytic activity/Vol] 30 U/L Normal 14-59 [facility] Comment on above: Performed By: #### C MP, LIPID #### [facility] [address] [place] [address] Dr. Abelardo Barrett Anion gap [Moles/Vol] 9.0 mmol/L Normal [facility] Comment on above: Performed By: #### C MP, LIPID #### [facility] [address] [place] [address] Dr. Abelardo Barrett AST [Catalytic activity/Vol] 17 U/L Normal 15-37 [facility] Comment on above: Performed By: #### C MP, LIPID #### [facility] [address] [place] [address] Dr. Abelardo Barrett Bilirubin [Mass/Vol] 0.6 mg/dL Normal 0.2-1.0 [facility] Comment on above: Performed By: #### C MP, LIPID #### [facility] [address] [place] [address] Dr. Abelardo Barrett Calcium [Mass/Vol] 9.1 mg/dL Normal 8.5-10.1 [facility] Comment on above: Performed By: #### C MP, LIPID #### [facility] [address] [place] [address] Dr. Abelardo Barrett Chloride [Moles/Vol] 104 mmol/L Normal 98-107 [facility] Comment on above: Performed By: #### C MP, LIPID #### [facility] [address] [place] [address] Dr. Abelardo Barrett CO2 [Moles/Vol] 30.6 mmol/L Normal 21.0-32.0 [facility] Comment on above: Performed By: #### C MP, LIPID #### [facility] [address] [place] [address] Dr. Abelardo Barertt Creatinine [Mass/Vol] 0.85 mg/dL Normal 0.55-1.02 [facility] Comment on above: Performed By: #### C MP, LIPID #### [facility] [address] [address] [address] Abelardo Barrett EGFR-AF CROATIAN >60 Normal >=60 [facility] Comment on above: Performed By: #### C MP, LIPID #### [facility] [address] [place] [address] Dr. Abelardo Barrett EGFR-NON AF CROATIAN >60 Normal >=60 [facility] Comment on above: Performed By: #### C MP, LIPID #### [facility] [address] [place] [address] Dr. Abelardo Barrett Globulin (S) [Mass/Vol] 3.6 g/dL Normal [facility] Comment on above: Performed By: #### C MP, LIPID #### [facility] [address] [place] [address] Dr. Abelardo Barrett Glucose [Mass/Vol] 93 mg/dL Normal 74-106 [facility] Comment on above: Performed By: #### C MP, LIPID #### [facility] [address] [place] [address] Dr. Abelardo Barrett Potassium [Moles/Vol] 4.6 mmol/L Normal 3.5-5.1 [facility] Comment on above: Performed By: #### C MP, LIPID #### [facility] [address] [place] [address] Dr. Abelardo Barrett Protein [Mass/Vol] 7.3 g/dL Normal 6.4-8.2 [facility] Comment on above: Performed By: #### C MP, LIPID #### [facility] [address] [place] [address] Dr. Abelardo Barrett Sodium [Moles/Vol] 139 mmol/L Normal 136-145 [facility] Comment on above: Performed By: #### C MP, LIPID #### [facility] [address] [place] [address] Dr. Abelardo Barrett Urea nitrogen [Mass/Vol] 33.0 mg/dL Critically high 7.0-18.0 [facility] Comment on above: Performed By: #### C MP, LIPID #### [facility] [address] [place] [address] Dr. Abelardo Barrett Urea nitrogen/Creatinine [Mass ratio] 38.8 mg/mg Normal [facility] Comment on above: Performed By: #### C MP, LIPID #### [facility] [address] [place] [address] Dr. Abelardo Barrett TSHon 03-30-2022 TSH Qn m[IU]/L Critically low 0.358-3.740 [facility] Comment on above: Performed By: #### C MP, LIPID #### [facility] [address] [place] [address] Dr. Abelardo Barrett T4 [facility] 01-16-2022 T4 [Mass/Vol] 8.3 ug/dL Normal 4.5-12.0 [facility] Comment on above: Performed By: #### C MP, LIPID #### [facility] [address] [place] [address] Dr. Abelardo Barrett FREE T3on 01-15-2022 FREE T3 3.34 pg/mlL Normal 2.18-3.98 [facility] Comment on above: Performed By: #### C MP, LIPID #### [facility] [address] [place] [address] Dr. Abelardo Barrett TSHon 01-15-2022 TSH Qn m[IU]/L Critically low 0.358-3.740 [facility] Comment on above: Performed By: #### C MP, LIPID #### [facility] [address] [place] [address] Dr. Abelardo Barrett BLOOD GASES BTYon 12-14-2021 02 MODE ROOM AIR Normal [facility] Comment on above: Performed By: #### A BG #### [facility] [address] [address] [address] Abelardo CARSON TEST Positive [facility] Comment on above: Performed By: #### A BG #### [facility] [address] [address] [address] Abelardo Barrett Base excess Calc (Bld) [Moles/Vol] 0.7 mmol/L Normal -2.0-2.0 [facility] Comment on above: Performed By: #### A BG #### [facility] [address] [address] [address] Abelardo Barrett BIPAP PRESSURE [facility] Comment on above: Performed By: #### A BG #### [facility] [address] [place] [address] Dr. Abelardo Barrett CO2 [Moles/Vol] 51.6 mmol/L Critically high 23.0-28.0 [facility] Comment on above: Performed By: #### A BG #### [facility] [address] [address] [address] Abelardo Barrett CPAP [facility] Comment on above: Performed By: #### A BG #### [facility] [address] [address] [address] Abelardo Barrett FIO2 Normal [facility] Comment on above: Performed By: #### A BG #### [facility] [address] [address] [address] Abelardo Barrett HCO3 (Bld) [Moles/Vol] 25.0 mmol/L Normal 22.0-26.0 [facility] Comment on above: Performed By: #### A BG #### [facility] [address] [address] [address] Abelardo Barrett LPM [facility] Comment on above: Performed By: #### A BG #### [facility] [address] [address] [address] Abelardo Barrett MINUTE VOLUME Normal [facility] Comment on above: Performed By: #### A BG #### [facility] [address] [place] [address] Dr. Abelardo Barrett Oxygen (Bld) [Partial pressure] 83.4 mm[Hg] Normal 80.0-100.0 [facility] Comment on above: Performed By: #### A BG #### [facility] [address] [place] [address] Dr. Abelardo Barrett Oxygen saturation in Blood 97.1 % Normal 95.0-100.0 [facility] Comment on above: Performed By: #### A BG #### [facility] [address] [place] [address] Dr. Abelardo Barrett PCO2 39.3 mmHg Normal 35.0-45.0 [facility] Comment on above: Performed By: #### A BG #### [facility] [address] [place] [address] Dr. Abelardo Barrett [facility] Comment on above: Performed By: #### A BG #### [facility] [address] [place] [address] Dr. Abelardo Barrett pH (Bld) 7.415 [pH] Normal 7.350-7.450 [facility] Comment on above: Performed By: #### A BG #### [facility] [address] [place] [address] Dr. Abelardo Barrett [facility] Comment on above: Performed By: #### A BG #### [facility] [address] [place] [address] Dr. Abelardo Barrett [facility] Comment on above: Performed By: #### A BG #### [facility] [address] [place] [address] Dr. Abelardo Barrett PUNCTURE SITE RR [facility] Comment on above: Performed By: #### A BG #### [facility] [address] [place] [address] Dr. Abelardo Barrett RATE [facility] Comment on above: Performed By: #### A BG #### [facility] [address] [place] [address] Dr. Abelardo Barrett VENT MODE [facility] Comment on above: Performed By: #### A BG #### [facility] [address] [place], [place] [address] Dr. Abelardo Barrett [place] Normal [facility] Comment on above: Performed By: #### A BG #### [facility] [address] [place], [place] [address] Dr. Abelardo Barrett Cardiovascular Lab Reporton 11-19-2021 Cardiovascular Lab Report [facility] Patient Name: [facility] MR #: [id number] Physician: Jian Dean, Department of M.D. Medicine Service Date: 11/19/2021 Division of Birthdate: 1945 Cardiology Room #: Adult Cardiovascular Services [facility] [address] [address] Cardiovascular Laboratory Report FINAL IMPRESSIONS: 1. Angiographically nonobstructive coronary arteries. 2. Normal global left ventricular systolic function by noninvasive imaging. RECOMMENDATIONS: 1. Consider alternate etiologies for the patient's shortness of breath, mainly pulmonary; pulmonary function tests have been ordered. 2. Aggressive cardiovascular risk factor modification. 3. Follow up with Dr. Dean in the next 3-4 weeks in the [place] office. 4. Follow up with Dr. Aguirre [...] the left radial artery was obtained. A 6-Czech sheath was inserted without difficulty. Bilateral selective coronary angiography was performed using 5-Czech JR4 and JL4 catheters. After reviewing the images, it was elected to conclude the procedure. All catheters were removed. The radial sheath was removed with application of a TR band per protocol to achieve optimal hemostasis. Overall, the patient tolerated the procedure well. There were no overt complications. She was to be transferred to the [facility] area in stable condition. FINDINGS: Hemodynamics. AO [...] P/Jian Dean M.D. Date Trans: 11/19/2021 02:08 P/yennifer [id number] cc: Dorcas Aguirre M.D. [id number] [facility] [id number] Normal [facility] Covid-19 PCR (CVDTB)on 10-30 SARS-CoV-2 (COVID-19) RNA STEVE+probe Ql (Unsp spec) Not detected Normal NOT DETECTED [facility] Comment on above: Result Comment: This test is not yet approved or cleared by the [place] FDA. When there are no FDA-approved or cleared tests available, and other criteria are met, FDA can make tests available under an emergency access mechanism called an Emergency Use Authorization (EUA). The EUA for this test is supported by the [employer] Professional of Health and Human Service's (HHS's) declaration [...] By: #### F T3, TSH, T4 #### [facility] [address] [place] [address] Dr. Abelardo Barrett CBC AUTO DIFFon 11-14-2021 BASO # 0.0 103/ul Normal 0.0-0.1 [facility] Comment on above: Performed By: #### F T3, TSH, T4 #### [facility] [address] [place] [address] Dr. Abelardo Barrett Basophils/100 WBC (Bld) 0.8 % Normal 0.2-2.0 [facility] Comment on above: Performed By: #### F T3, TSH, T4 #### [facility] [address] [place] [address] Dr. Abelardo Barrett EO # 0.1 103/ul Normal 0.0-0.7 [facility] Comment on above: Performed By: #### F T3, TSH, T4 #### [facility] [address] [place] [address] Dr. Abelardo Barrett Eosinophils/100 WBC (Bld) 2.1 % Normal 0.9-7.0 [facility] Comment on above: Performed By: #### F T3, TSH, T4 #### [facility] [address] [place] [address] Dr. Abelardo Barrett Erythrocyte distribution width (RBC) [Ratio] 12.0 % Normal 11.0-15.0 [facility] Comment on above: Performed By: #### F T3, TSH, T4 #### [facility] [address] [place] [address] Dr. Abelardo Barrett Hematocrit (Bld) [Volume fraction] 36.2 % Normal 36.0-48.0 [facility] Comment on above: Performed By: #### F T3, TSH, T4 #### [facility] [address] [place] [address] Dr. Abelardo Barrett Hemoglobin (Bld) [Mass/Vol] 11.6 g/dL Critically low 12.0-16.0 [facility] Comment on above: Performed By: #### F T3, TSH, T4 #### [facility] [address] [place] [address] Dr. Abelardo Barrett IG # 0.01 10e3/ul Normal 0.00-0.03 [facility] Comment on above: Performed By: #### F T3, TSH, T4 #### [facility] [address] [place] [address] Dr. Abelardo Barrett IG % 0.2 % Normal 0.0-0.5 [facility] Comment on above: Performed By: #### F T3, TSH, T4 #### [facility] [address] [place] [address] Dr. Abelardo Barrett LYMPH # 0.8 103/ul Critically low 1.2-3.8 [facility] Comment on above: Performed By: #### F T3, TSH, T4 #### [facility] [address] [place] [address] Dr. Abelardo Barrett Lymphocytes/100 WBC (Bld) 15.8 % Critically low 20.5-60.0 [facility] Comment on above: Performed By: #### F T3, TSH, T4 #### [facility] [address] [place] [address] Dr. Abelardo Barrett MANUAL DIFF REQ NO Normal [facility] Comment on above: Performed By: #### F T3, TSH, T4 #### [facility] [address] [place] [address] Dr. Abelardo Barrett MCH (RBC) [Entitic mass] 30.2 pg Normal 26.7-34.0 [facility] Comment on above: Performed By: #### F T3, TSH, T4 #### [facility] [address] [place] [address] Dr. Abelardo Barrett MCHC (RBC) [Mass/Vol] 32.0 g/dL Normal 29.9-35.2 [facility] Comment on above: Performed By: #### F T3, TSH, T4 #### [facility] [address] [address] [address] Abelardo Barrett MCV (RBC) [Entitic vol] 94.3 fL Normal 81.0-99.0 [facility] Comment on above: Performed By: #### F T3, TSH, T4 #### [facility] [address] [place] [address] Dr. Abelardo Barrett MONO # 0.4 103/ul Normal 0.3-0.8 [facility] Comment on above: Performed By: #### F T3, TSH, T4 #### [facility] [address] [place] [address] Dr. Abelardo Barrett Monocytes/100 WBC (Bld) 8.3 % Normal 1.7-12.0 [facility] Comment on above: Performed By: #### F T3, TSH, T4 #### [facility] [address] [place] [address] Dr. Abelardo Barrett NEUT # 3.8 103/ul Normal 1.4-6.5 [facility] Comment on above: Performed By: #### F T3, TSH, T4 #### [facility] [address] [place] [address] Dr. Abelardo Barrett Neutrophils/100 WBC (Bld) 72.8 % Normal 43.0-75.0 [facility] Comment on above: Performed By: #### F T3, TSH, T4 #### [facility] [address] [place] [address] Dr. Abelardo Barrett Platelet mean volume (Bld) [Entitic vol] 8.6 fL Critically low 9.5-13.5 [facility] Comment on above: Performed By: #### F T3, TSH, T4 #### [facility] [address] [place] [address] Dr. Abelardo Barrett PLT 244 103/ul Normal 150-450 [facility] Comment on above: Performed By: #### F T3, TSH, T4 #### [facility] [address] [place] [address] Dr. Abelardo Barrett RBC 3.84 106/ul Critically low 4.20-5.40 [facility] Comment on above: Performed By: #### F T3, TSH, T4 #### [facility] [address] [address] [address] Abelardo Barrett WBC 5.2 103/ul Normal 4.0-11.0 [facility] Comment on above: Performed By: #### F T3, TSH, T4 #### [facility] [address] [place] [address] Dr. Abelardo Barrett PROF CHEM 8 (BAS METB)on Anion gap [Moles/Vol] 12.0 mmol/L Normal [facility] Comment on above: Performed By: #### B VIBHA, HSTROPN #### [facility] [address] [place] [address] Dr. Abelardo Barrett Calcium [Mass/Vol] 9.2 mg/dL Normal 8.5-10.1 [facility] Comment on above: Performed By: #### B VIBHA, HSTROPN #### [facility] [address] [place] [address] Dr. Abelardo Barrett Chloride [Moles/Vol] 101 mmol/L Normal 98-107 [facility] Comment on above: Performed By: #### B VIBHA, HSTROPN #### [facility] [address] [place] [address] Dr. Abelardo Barrett CO2 [Moles/Vol] 26.3 mmol/L Normal 21.0-32.0 [facility] Comment on above: Performed By: #### B VIBHA, HSTROPN #### [facility] [address] [place] [address] Dr. Abelardo Barrett Creatinine [Mass/Vol] 0.90 mg/dL Normal 0.55-1.02 [facility] Comment on above: Performed By: #### B VIBHA, HSTROPN #### [facility] [address] [place] [address] Dr. Abelardo Barrett EGFR-AF CROATIAN >60 Normal >=60 [facility] Comment on above: Performed By: #### B VIBHA, HSTROPN #### [facility] [address] [address] [address] Abelardo Barrett EGFR-NON AF CROATIAN >60 Normal >=60 [facility] Comment on above: Performed By: #### B VIBHA, HSTROPN #### [facility] [address] [address] [address] Abelardo Barrett Glucose [Mass/Vol] 101 mg/dL Normal 74-106 [facility] Comment on above: Performed By: #### B MP, HSTROPN #### [facility] [address] [address] [address] Abelardo Barrett Potassium [Moles/Vol] 4.3 mmol/L Normal 3.5-5.1 [facility] Comment on above: Performed By: #### B VIBHA, HSTROPN #### [facility] [address] [place] [address] Dr. Abelardo Barrett Sodium [Moles/Vol] 135 mmol/L Critically low 136-145 [facility] Comment on above: Performed By: #### B VIBHA, HSTROPN #### [facility] [address] [address] [address] Abelardo Barrett Urea nitrogen [Mass/Vol] 34.0 mg/dL Critically high 7.0-18.0 [facility] Comment on above: Performed By: #### B VIBHA, HSTROPN #### [facility] [address] [place] [address] Dr. Abelardo Barrett Urea nitrogen/Creatinine [Mass ratio] 37.8 mg/mg Normal [facility] Comment on above: Performed By: #### B MP, HSTROPN #### [facility] [address] [place] [address] Dr. Abelardo Barrett TROPONIN, HIGH SENSITIVITYon 11-14-2021 HSTROP 5.8 pg/mL Normal 4.0-51.3 [facility] Comment on above: Result Comment: CUT- OFF POINTS HAVE BEEN ESTABLISHED BASED ON THE FOURTH UNIVERSAL DEFINITIONS OF MYOCARDIAL INFARCTION. THE UPPER REFERENCE LIMIT (URL) OF TROPONIN, DEFINED THE 99TH PERCENTILE OF cTnI DISTRIBUTION IN A REFERENCE POPULATION, HAS BEEN CONFIRMED THE DECISION THRESHOLD FOR [place] DIAGNOSIS. Performed By: #### C VIBHA, LIPID #### [facility] [address] [address] [address] Abelardo Barrett HSTROP 5.8 pg/mL Normal 4.0-51.3 [facility] Comment on above: Result Comment: CUT- OFF POINTS HAVE BEEN ESTABLISHED BASED ON THE FOURTH UNIVERSAL DEFINITIONS OF MYOCARDIAL INFARCTION. THE UPPER REFERENCE LIMIT (URL) OF TROPONIN, DEFINED THE 99TH PERCENTILE OF cTnI DISTRIBUTION IN A REFERENCE POPULATION, HAS BEEN CONFIRMED THE DECISION THRESHOLD FOR [place] DIAGNOSIS. Performed By: #### B MP, HSTROPN #### [facility] [address] [address] [address] Abelardo Barrett XR CHEST 1 Von [...] LETICIA HOYT Date: 2021-11-14 12:45 Normal [facility] CBC AUTO DIFFon 10-27-2021 BASO # 0.1 103/ul Normal 0.0-0.1 [facility] Comment on above: Performed By: #### C BC #### [facility] [address] [address] [address] Abelardo Barrett Basophils/100 WBC (Bld) 1.1 % Normal 0.2-2.0 [facility] Comment on above: Performed By: #### C BC #### [facility] [address] [address] [address] Abelardo Barrett EO # 0.2 103/ul Normal 0.0-0.7 [facility] Comment on above: Performed By: #### C BC #### [facility] [id number] Abelardo Barrett Eosinophils/100 WBC (Bld) 3.9 % Normal 0.9-7.0 [facility] Comment on above: Performed By: #### C BC #### [facility] [address] [place] [address] Dr. Abelardo Barrett Erythrocyte distribution width (RBC) [Ratio] 12.1 % Normal 11.0-15.0 [facility] Comment on above: Performed By: #### C BC #### [facility] [address] [place] [address] Dr. Abelardo Barrett Hematocrit (Bld) [Volume fraction] 33.6 % Critically low 36.0-48.0 [facility] Comment on above: Performed By: #### C BC #### [facility] [address] [place] [address] Dr. Abelardo Barrett Hemoglobin (Bld) [Mass/Vol] 11.1 g/dL Critically low 12.0-16.0 [facility] Comment on above: Performed By: #### C BC #### [facility] [address] [place] [address] Dr. Abelardo Barrett IG # 0.01 10e3/ul Normal 0.00-0.03 [facility] Comment on above: Performed By: #### C BC #### [facility] [address] [place] [address] Dr. Abelardo Barrett IG % 0.2 % Normal 0.0-0.5 [facility] Comment on above: Performed By: #### C BC #### [facility] [address] [place] [address] Dr. Abelardo Barrett LYMPH # 1.3 103/ul Normal 1.2-3.8 [facility] Comment on above: Performed By: #### C BC #### [facility] [address] [place] [address] Dr. Abelardo Barrett Lymphocytes/100 WBC (Bld) 28.5 % Normal 20.5-60.0 [facility] Comment on above: Performed By: #### C BC #### [facility] [address] [place] [address] Dr. Abelardo Barrett MANUAL DIFF REQ NO Normal [facility] Comment on above: Performed By: #### C BC #### [facility] [address] [address] [address] Abelardo Barrett MCH (RBC) [Entitic mass] 30.8 pg Normal 26.7-34.0 [facility] Comment on above: Performed By: #### C BC #### [facility] [address] [place] [address] Dr. Abelardo Barrett MCHC (RBC) [Mass/Vol] 33.0 g/dL Normal 29.9-35.2 [facility] Comment on above: Performed By: #### C BC #### [facility] [address] [place] [address] Dr. Abelardo Barrett MCV (RBC) [Entitic vol] 93.3 fL Normal 81.0-99.0 [facility] Comment on above: Performed By: #### C BC #### [facility] [address] [place] [address] Dr. Abelardo Barrett MONO # 0.5 103/ul Normal 0.3-0.8 [facility] Comment on above: Performed By: #### C BC #### [facility] [address] [place] [address] Dr. Abelardo Barrett Monocytes/100 WBC (Bld) 11.1 % Normal 1.7-12.0 [facility] Comment on above: Performed By: #### C BC #### [facility] [address] [place] [address] Dr. Abelardo Barrett NEUT # 2.5 103/ul Normal 1.4-6.5 [facility] Comment on above: Performed By: #### C BC #### [facility] [address] [place] [address] Dr. Abelardo Barrett Neutrophils/100 WBC (Bld) 55.2 % Normal 43.0-75.0 [facility] Comment on above: Performed By: #### C BC #### [facility] [address] [place] [address] Dr. Abelardo Barrett Platelet mean volume (Bld) [Entitic vol] 9.1 fL Critically low 9.5-13.5 [facility] Comment on above: Performed By: #### C BC #### [facility] [address] [place], [place] [address] Dr. Abelardo Barrett PLT 241 103/ul Normal 150-450 [facility] Comment on above: Performed By: #### C BC #### [facility] [id number] Abelardo Barrett RBC 3.60 106/ul Critically low 4.20-5.40 [facility] Comment on above: Performed By: #### C BC #### [facility] [id number] Abelardo Barrett WBC 4.6 103/ul Normal 4.0-11.0 [facility] Comment on above: Performed By: #### C BC #### [facility] [id number] Abelardo Barrett ECHOCARDIO M/2D COMPLETEon 0 10-27-2021 ECHOCARDIO M/2D COMPLETE Patient: BECKY PONCE Exam Date: 10/27/2021 : 1945 Gender:F Ordering : DR DORCAS AGUIRRE . Admission #: [id number] Family : Order #: [id number] CLICK HERE TO VIEW EXAM ECHOCARDIOGRAM REPORT [...] Area(A4C): 17.20 cm2 Left Atrium Systolic Volume(A2C): 73244 mm3 Left Atrium Systolic Volume(A4C): 80267 mm3 Mitral Valve MV E to A Ratio: 0.80 Deceleration [place]: 2480 mm/s2 Mitral Valve A-Wave Peak Velocity: [...] Mayberry M.D. on 10/27/2021 at 19:38 Normal [facility] FREE T3on 10-27-2021 FREE T3 4.10 pg/mlL Critically high 2.18-3.98 [facility] Comment on above: Performed By: #### F T3, TSH, T4 #### [facility] [address] [address] [address] Abelardo Barrett GLYCOHEMOGLOBIN A1Con 2021 ADA RECOMMENDATION SEE BELOW Normal [facility] Comment on above: Result Comment: ADA RECOMMENDED LIMIT 4.0 - 6.0 ADA THERAPEUTIC TARGET < 7.0 ACTION SUGGESTED > 7.0 Performed By: #### F T3, TSH, T4 #### [facility] [address] [address] [address] Abelardo Barrett Glucose [Mass/Vol] 123 mg/dL Normal [facility] Comment on above: Performed By: #### F T3, TSH, T4 #### [facility] [address] [address] [address] Abelardo Barrett HbA1c (Bld) [Mass fraction] 5.9 % Normal 4.5-6.2 [facility] Comment on above: Performed By: #### F T3, TSH, T4 #### [facility] [address] [address] [address] Abelardo Barrett IRONon 10-27-2021 Iron [Mass/Vol] 63.0 ug/dL Normal 50.0-170.0 [facility] Comment on above: Performed By: #### C MP, LIPID #### [facility] [address] [address] [address] Abelardo Barrett LIPID PROFILEon 10-27-2021 CHOL-HDL RATIO NORM SEE BELOW Normal [facility] Comment on above: Result Comment: 3.3 - 4.4 LOW RISK 4.4 - 7.1 AVERAGE RISK 7.1 - 11.0 MODERATE RISK >11.0 HIGH RISK Performed By: #### C MP, LIPID #### [facility] [address] [address] [address] Abelardo Barrett Cholesterol [Mass/Vol] 163 mg/dL Normal <=200 [facility] Comment on above: Performed By: #### C MP, LIPID #### [facility] [address] [address] [address] Abelardo Barrett Cholesterol in HDL [Mass/Vol] 74 mg/dL Critically high 40-60 [facility] Comment on above: Performed By: #### C MP, LIPID #### [facility] [address] [address] [address] Abelardo Barrett Cholesterol in LDL [Mass/Vol] 79.2 mg/dL Normal [facility] Comment on above: Performed By: #### C MP, LIPID #### [facility] [address] [address] [address] Abelardo Barrett Cholesterol.total/Ch olesterol in HDL [Mass ratio] 2.2 {ratio} Normal [facility] Comment on above: Performed By: #### C MP, LIPID #### [facility] [address] [address] [address] Abelardo Barrett HDL NORMAL > or = 60 mg/dl - LO W CARDIOVASCULAR RISK <40 mg/dl - HIGH CARDIOVASCULAR RISK Normal [facility] Comment on above: Performed By: #### C MP, LIPID #### [facility] [address] [address] [address] Abelardo Barrett LDL CALC NORMAL SEE BELOW Normal [facility] Comment on above: Result Comment: <100 mg/dl OPTIMAL 100 - 129 mg/dl NEAR OR ABOVE OPTIMAL 130 - 159 mg/dl BORDERLINE HIGH 160 - 189 mg/dl HIGH >190 mg/dl VERY HIGH Performed By: #### C MP, LIPID #### [facility] [address] [address] [address] Abelardo Barrett Triglyceride [Mass/Vol] 49 mg/dL Normal <=150 [facility] Comment on above: Performed By: #### C MP, LIPID #### [facility] [address] [address] [address] Abelardo Barrett VLDL CALC 9.8 mg/dL Normal [facility] Comment on above: Performed By: #### C MP, LIPID #### [facility] [address] [address] [address] Abelardo Barrett NM STRESS/REST MULTIon 10-27 NM STRESS/REST MULTI Patient: ANKIT PONCE Exam Date: 10/27/2021 : 1945 Gender:F Ordering : DR DORCAS AGUIRRE . Admission #: [id number] Family : Order #: [id number] CLICK HERE TO VIEW EXAM RADIOLOGY REPORT [...] anteroseptal. Basal inferoseptal. Mid-anteroseptal. Mid-inferoseptal. Apical septal. Rosie. SIZE: Large (5 or more segments). SEVERITY: Moderate. TYPE: Mixed. WALL MOTION: Normal. Basal inferoseptal. Mid-anterior. Mid-anteroseptal. Rosie. LV SIZE: Normal. 63 mL. TID / [...] Nice MD on 10/27/2021 at 12:10 Normal [facility] PROF 14(COMP METB)on 10-27- 022 Albumin [Mass/Vol] 3.2 g/dL Critically low 3.4-5.0 [facility] Comment on above: Performed By: #### C MP, LIPID #### [facility] [address] [address] [address] Abelardo Barrett Albumin/Globulin [Mass ratio] 0.9 {ratio} Normal [facility] Comment on above: Performed By: #### C MP, LIPID #### [facility] [address] [address] [address] Abelardo Barrett ALP [Catalytic activity/Vol] 50 U/L Normal 46-116 [facility] Comment on above: Performed By: #### C MP, LIPID #### [facility] [address] [address] [address] Abelardo Barrett ALT [Catalytic activity/Vol] 38 U/L Normal 14-59 [facility] Comment on above: Performed By: #### C MP, LIPID #### [facility] [address] [address] [address] Abelardo Barrett Anion gap [Moles/Vol] 13.4 mmol/L Normal [facility] Comment on above: Performed By: #### C MP, LIPID #### [facility] [address] [address] [address] Abelardo Barrett AST [Catalytic activity/Vol] 27 U/L Normal 15-37 [facility] Comment on above: Performed By: #### C MP, LIPID #### [facility] [address] [address] [address] Abelardo Barrett Bilirubin [Mass/Vol] 0.4 mg/dL Normal 0.2-1.0 [facility] Comment on above: Performed By: #### C MP, LIPID #### [facility] [address] [address] [address] Abelardo Barrett Calcium [Mass/Vol] 8.6 mg/dL Normal 8.5-10.1 [facility] Comment on above: Performed By: #### C MP, LIPID #### [facility] [address] [address] [address] Abelardo Barrett Chloride [Moles/Vol] 107 mmol/L Normal 98-107 [facility] Comment on above: Performed By: #### C MP, LIPID #### [facility] [address] [address] [address] Abelardo Barrett CO2 [Moles/Vol] 24.7 mmol/L Normal 21.0-32.0 [facility] Comment on above: Performed By: #### C MP, LIPID #### [facility] [address] [address] [address] Abelardo Barrett Creatinine [Mass/Vol] 0.75 mg/dL Normal 0.55-1.02 [facility] Comment on above: Performed By: #### C MP, LIPID #### [facility] [address] [address] [address] Abelardo Barrett EGFR-AF CROATIAN >60 Normal >=60 [facility] Comment on above: Performed By: #### C MP, LIPID #### [facility] [address] [place] [address] Dr. Abelardo Barrett EGFR-NON AF CROATIAN >60 Normal >=60 [facility] Comment on above: Performed By: #### C MP, LIPID #### [facility] [address] [place] [address] Dr. Abelardo Barrett Globulin (S) [Mass/Vol] 3.4 g/dL Normal [facility] Comment on above: Performed By: #### C MP, LIPID #### [facility] [address] [address] [address] Abelardo Barrett Glucose [Mass/Vol] 92 mg/dL Normal 74-106 [facility] Comment on above: Performed By: #### C MP, LIPID #### [facility] [address] [address] [address] Abelardo Barrett Potassium [Moles/Vol] 4.1 mmol/L Normal 3.5-5.1 [facility] Comment on above: Performed By: #### C MP, LIPID #### [facility] [address] [address] [address] Abelardo Barrett Protein [Mass/Vol] 6.6 g/dL Normal 6.4-8.2 [facility] Comment on above: Performed By: #### C MP, LIPID #### [facility] [address] [place] [address] Dr. Abelardo Barrett Sodium [Moles/Vol] 141 mmol/L Normal 136-145 [facility] Comment on above: Performed By: #### C MP, LIPID #### [facility] [address] [place] [address] Dr. Abelardo Barrett Urea nitrogen [Mass/Vol] 29.0 mg/dL Critically high 7.0-18.0 [facility] Comment on above: Performed By: #### C MP, LIPID #### [facility] [address] [place] [address] Dr. Abelardo Barrett Urea nitrogen/Creatinine [Mass ratio] 38.7 mg/mg Normal [facility] Comment on above: Performed By: #### C MP, LIPID #### [facility] [address] [place] [address] Dr. Abelardo Barrett T4on 10-27-2021 T4 [Mass/Vol] 9.40 ug/dL Normal 4.80-13.90 [facility] Comment on above: Performed By: #### F T3, TSH, T4 #### [facility] [address] [place] [address] Dr. Abelardo Barrett TSHon 10-27-2021 TSH Qn m[IU]/L Critically low 0.358-3.740 [facility] Comment on above: Performed By: #### F T3, TSH, T4 #### [facility] [address] [place] [address] Dr. Abelardo Barrett T4 [facility]on 10-01-2021 T4 [Mass/Vol] 9.4 ug/dL Normal 4.5-12.0 [facility] Comment on above: Performed By: #### T 4LC #### [facility] [address] [place] [address] Dr. Abelardo Barrett FREE T3on 09-30-2021 FREE T3 4.05 pg/mlL Critically high 2.18-3.98 [facility] Comment on above: Performed By: #### F T3, TSH, T4 #### [facility] [address] [address] [address] Abelardo Barrett TSHon 09-30-2021 TSH Qn m[IU]/L Critically low 0.358-3.740 [facility] Comment on above: Performed By: #### F T3, TSH, T4 #### [facility] [address] [address] [address] Abelardo Barrett TSH RANGE SEE BELOW Normal [facility] Comment on above: Result Comment: <0.3 4 UIU/ml HYPERTHYROID 0.34-5.60 UIU/ml EUTHYROID >5.60 UIU/ml HYPOTHYROID Performed By: #### F T3, TSH, T4 #### [facility] [address] [address] [address] Abelardo Barrett FREE T3on 08-14-2021 FREE T3 1.73 pg/mlL Critically low 2.77-5.27 [facility] Comment on above: Performed By: #### C MP, LIPID #### [facility] [address] [place] [address] Dr. Abelardo Barrett T4on 08-14-2021 T4 [Mass/Vol] 4.40 ug/dL Critically low 5.53-11.00 [facility] Comment on above: Performed By: #### C MP, LIPID #### [facility] [address] [place] [address] Dr. Abelardo Barrett TSHon 08-14-2021 TSH 0.349 uIU/mL Critically low 0.470-4.680 [facility] Comment on above: Performed By: #### C MP, LIPID #### [facility] [address] [place] [address] Dr. Abelardo Barrett TSH RANGE SEE BELOW Normal [facility] Comment on above: Result Comment: <0.3 4 UIU/ml HYPERTHYROID 0.34-5.60 UIU/ml EUTHYROID >5.60 UIU/ml HYPOTHYROID Performed By: #### C MP, LIPID #### [facility] [address] [place], [place] [address] Dr. Abelardo Barrett Outside Colonoscopyon 2020 Outside Colonoscopy [id number] 0CD:127 Normal [facility] RAD - MISCon 05-14-2020 RAD - MISC [id number] 10 [id number] 0CD:127 Normal [facility] Lab Reportson 05-12-2020 Lab Reports [id number] 0CD:127 [facility] Provider Letter FTMCon 05-07 Provider Letter FT Dorcas Aguirre, [address] [place] [address] [place] [address] Re: BECKY PONCE Date of : 1945 Thank you for your referral of Becky Ponce who was seen on consultation on April 30, 2020, for positive occult stool. A colonoscopy is planned for further evaluation. I have enclosed my consultation notes for your review. I will be happy to follow Becky should her symptoms persist. Sincerely, Ajith Renee MD General Surgery [facility] Consent for Procedure/Surger yon 05-06-2020 Consent for Procedure/Surgery [id number] 0CD:127 [facility] Facesheeton 05-01-2020 Facesheet [id number] 0CD:127 [facility] Ambulatory Clinical Summaryo n 04-30-2020 Ambulatory Clinical Summary {[id number]}CD:[id number] [facility] Ambulatory Clinical Summary {[id number]}CD:[id number] [facility] Physician Referralon 020 Physician Referral [id number] 0CD:127 [facility] Vital Signs Date Time Vital Sign Value Performing Clinician Facility 06-25-2024 08:43-0500 Body height 162.6 cm Sanjuanita Whipple MD Work Phone: [facility] 06-25-2024 08:43-0500 Body mass index (BMI) [Ratio] 24.55 kg/m2 Sanjuanita Whipple MD Work Phone: [facility] 06-25-2024 08:43-0500 Body weight 64.86 kg Sanjuanita Whipple MD Work Phone: [facility] 06-25-2024 08:43-0500 Diastolic blood pressure 70 mm[Hg] Sanjuanita Whipple MD Work Phone: [facility] 06-25-2024 08:43-0500 Systolic blood pressure 120 mm[Hg] Sanjuanita Whipple MD Work Phone: [facility] 05-21-2024 10:20-0500 Body height 162.6 cm [facility] 2 [facility] 05-21-2024 10:20-0500 Body mass index (BMI) [Ratio] 24.55 kg/m2 Pm 2 [facility] 05-21-2024 10:20-0500 Body weight 64.86 kg Pm 2 [facility] 04-10-2024 11:24-0500 Diastolic blood pressure 76 mm[Hg] Sanjuanita Whipple MD Work Phone: [facility] 04-10-2024 11:24-0500 Systolic blood pressure 132 mm[Hg] Sanjuanita Whipple MD Work Phone: [facility] 03-27-2024 11:01-0500 Body height 162.6 cm Sanjuanita Whipple MD Work Phone: [facility] 03-27-2024 11:01-0500 Body mass index (BMI) [Ratio] 25.46 kg/m2 Sanjuanita Whipple MD Work Phone: [facility] [employer] [facility] 03-27-2024 11:01-0500 Body weight 67.27 kg Sanjuanita Whipple MD Work Phone: [facility] [employer] [facility] 03-27-2024 11:01-0500 Diastolic blood pressure 82 mm[Hg] Sanjuanita Whipple MD Work Phone: [facility] [employer] [facility] 03-27-2024 11:01-0500 Systolic blood pressure 140 mm[Hg] Sanjuanita Whipple MD Work Phone: [facility] [employer] [facility] 05-27-2022 16:10-0500 Body temperature 96.4 [degF] Saranya Butcher MD Work Phone: [employer] 05-27-2022 16:10-0500 Diastolic blood pressure 72 mm[Hg] Saranya Butcher MD Work Phone: [employer] 05-27-2022 16:10-0500 Heart rate 81 /min Saranya Butcher MD Work Phone: [employer] 05-27-2022 16:10-0500 SaO2% (BldA) [Mass fraction] 99 % Saranya Butcher MD Work Phone: [employer] 05-27-2022 16:10-0500 Systolic blood pressure 145 mm[Hg] Saranya Butcher MD Work Phone: [employer] 05-27-2022 14:30-0500 Respiratory rate 15 /min Saranya Butcher MD Work Phone: [employer] 07-29-2021 09:16-0400 Body height 162.6 cm Gertrudis Encarnacion MD Work Phone: [facility] [employer] [facility] 07-29-2021 09:16-0400 Body mass index (BMI) [Ratio] 23.34 kg/m2 Gertrudis Encarnacion MD Work Phone: [email or web address] [facility] 07-29-2021 09:16-0400 Body temperature 97.59 [degF] Gertrudis Encarnacion MD Work Phone: [facility] 07-29-2021 09:16-0400 Body weight 61.69 kg Gertrudis Encarnacion MD Work Phone: [facility] 07-29-2021 09:16-0400 Diastolic blood pressure 85 mm[Hg] Gertrudis Encarnacion MD Work Phone: [facility] 07-29-2021 09:16-0400 Heart rate 91 /min Gertrudis Encarnacion MD Work Phone: [facility] 07-29-2021 09:16-0400 Systolic blood pressure 144 mm[Hg] Gertrudis Encarnacion MD Work Phone: [facility] Encounters Encounter Date Encounter Type Care Provider Facility Start: 12-28-2024 ambulatory [facility] Start: 2024 ambulatory [facility] Start: 12-21-2024 ambulatory [facility] Start: 11-21-2024 End: 11-21-2024 Bamboo flowsheet Eloisa Mustafa MD Work Phone: [facility] Start: 11-21-2024 End: 11-21-2024 Bamboo flowsheet Eloisa Mustafa MD Work Phone: [facility] Start: 11-21-2024 End: 11-21-2024 Postop follow up visit related to original px Eloisa Mustafa MD Work Phone: [facility] Comment on above: Encounter for remova l of sutures (Primary Dx) Start: 11-21-2024 End: 11-21-2024 ambulatory ELOISA MUSTAFA Not Available Start: 11-07-2024 End: 11-07-2024 Patient encounter procedure Eloisa Mustafa MD Work Phone: [facility] Comment on above: Basal cell carcinoma (BCC) of skin of other part of torso (Primary Dx) Start: 11-07-2024 End: 11-07-2024 ambulatory ELOISA MUSTAFA Not Available Start: 09-19-2024 End: 09-19-2024 Bamboo flowsheet Melissa Saba EXPORT AGENT-[employer]EST [employer] PROFESSOR Work Phone: [facility] Start: 09-19-2024 End: 09-19-2024 Bamboo flowsheet Melissa Gtz Felter EXPORT AGENT-[employer] PROFESSOR Work Phone: [facility] Start: 09-19-2024 End: 09-19-2024 Office outpatient visit 25 minutes Melissa Saba EXPORT AGENT-[employer] PROFESSOR Work Phone: [facility] Comment on above: Seborrheic keratosis (Primary Dx); Lentigines; Actinic keratosis; History of SCC (squamous cell carcinoma) of skin; Neoplasm of unspecified behavior of bone, soft tissue, and skin Start: 09-19-2024 End: 09-19-2024 ambulatory MELISSA SABA Not Available Start: 09-07-2024 ambulatory Saranya Butcher [facility] Start: 09-04-2024 ambulatory [facility] Start: 06-29-2024 End: 07-04-2024 Telephone encounter Sanjuanita Whipple MD Work Phone: [facility]ne[facility] Start: 06-25-2024 End: 06-25-2024 Office outpatient visit 15 minutes 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) Start: 06-25-2024 End: 06-25-2024 [facility] Start: 06-11-2024 End: 06-11-2024 Evaluation and management of inpatient SARANYA RAMIREZ [facility] Start: 06-11-2024 End: 06-11-2024 Evaluation and management of inpatient SANJUANITA Ruiz [facility] Start: 05-21-2024 End: 05-21-2024 Patient encounter procedure [facility] Pre-Admission Testing 2 [facility] - Pre Ad[facility] Comment on above: Preop examination (P rimary Dx); Hypertension, unspecified type Start: 05-21-2024 End: 05-21-2024 Preprocedural examination done [facility] 2 [facility] Start: 05-21-2024 End: 05-21-2024 ambulatory SARANYA Pabon [facility] Start: 05-21-2024 Encounter for other preprocedural examination SARANYA Pabon [facility] Start: 05-07-2024 End: 05-07-2024 Telephone encounter Sanjuanita Whipple MD Work Phone: [facility]Gynecology Start: 04-30-2024 End: 04-30-2024 ambulatory [facility] Start: 04-10-2024 End: 04-10-2024 ambulatory [facility] Start: 04-10-2024 End: 04-10-2024 Patient encounter procedure Sanjuanita Whipple MD Work Phone: [facility]Gynecology Comment on above: 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); Atrophic vaginitis Start: 04-10-2024 End: 04-10-2024 ambulatory [facility] Start: 03-27-2024 End: 03-27-2024 Office outpatient new 30 minutes Sanjuanita Whipple MD Work Phone: [facility]ne[facility] Comment on above: 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) Start: 03-27-2024 End: 03-27-2024 ambulatory [facility] Start: 03-20-2024 End: 03-20-2024 Bamboo flowsheet Melissakelsy Johnsoner EXPORT AGENT[employer] PROFESSOR Work Phone: [facility] Start: 03-20-2024 End: 03-20-2024 Bamboo flowsheet Melissa A Alexer EXPORT AGENT[employer] PROFESSOR Work Phone: [facility] Start: 03-20-2024 End: 03-20-2024 Office outpatient visit 25 minutes Melissa Saba EXPORT AGENT[employer] PROFESSOR Work Phone: [facility] Comment on above: Seborrheic keratosis (Primary Dx); Onychomycosis; Lentigines; Actinic keratosis Start: 03-20-2024 End: 03-20-2024 ambulatory MELISSA SABA Not Available Start: 09-09-2023 End: 09-09-2023 Office outpatient visit 10 minutes Saranya Butcher Work Phone: [facility] Start: 10-20-2022 End: 10-20-2022 ambulatory Gertrudis Encarnacion Facility:[facility] Start: 07-05-2022 End: 07-05-2022 Encounter identifier Saranya Butcher Work Phone: [facility] Start: 06-15-2022 End: 06-16-[address] DOCTOR BANDA Facility: Start: 06-02-2022 End: 06-02-2022 Encounter identifier Saranya Butcher Work Phone: [facility] Start: 06-01-2022 End: 06-01-[address] NIKUNJ LINDSEY Facility: Start: 05-27-2022 End: 05-27-2022 Evaluation and management of inpatient SARANYA BUTCHER [facility] Start: 05-27-2022 End: 05-27-2022 Encounter identifier Jethro Rosales Work Phone: [facility] Start: 05-27-2022 End: 05-27-2022 Evaluation and management of inpatient Saranya Butcher MD Work Phone: [facility] Comment on above: 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, initial encounter ([facility]) Start: 05-27-2022 End: 05-27-2022 Evaluation and management of inpatient [facility] [address] [place] [address] Start: 05-27-2022 End: 05-27-2022 Subsequent hospital visit by physician McNa [address] [place] [address] Comment on above: Pain Start: 05-17-2022 End: 05-17-2022 Encounter identifier Jaskaran Martinez Work Phone: [facility] Start: 05-06-2022 End: 05-06-2022 Encounter identifier Saranya Butcher Work Phone: [facility] Start: 05-06-2022 End: 05-06-2022 Office outpatient visit 25 minutes Ajith De La Torre Work Phone: [facility] Start: 04-07-2022 End: 04-08-[address] SARANYA NICE Facility:[facility] Start: 03-30-2022 End: 03-31-[address] DORCAS AGUIRRE . Facility:[facility] Start: 01-15-2022 End: 01-16-[address] DORCAS AGUIRRE . Facility:[facility] Start: 12-14-2021 End: 12-15-[address] JIAN DEAN Facility:[facility] Start: 11-19-2021 End: 11-20-2021 ambulatory DORCAS AGUIRRE Facility:[facility] Start: 11-18-2021 Encounter for preprocedural laboratory examination ELA MELTON [facility] Start: 11-17-2021 End: 11-18-2021 ambulatory [facility] Facility:[facility] Start: 11-17-2021 End: 11-18-2021 Encounter for preprocedural laboratory examination ELA LINH Facility:[facility] Start: 11-14-2021 End: 11-14-2021 ambulatory NIKHIL GIORDANO Facility:[facility] Start: 11-03-2021 End: 11-16-2021 ambulatory DORCAS AGUIRRE Facility:[facility] Start: 10-29-2021 End: 10-29-[address] DORCAS AGUIRRE . Facility:[facility] Start: 10-27-2021 End: 10-28-[address] DORCAS AGUIRRE . Facility:[facility] Start: 09-30-2021 End: 10-01-[address] DORCAS AGUIRRE . Facility:[facility] Start: 08-14-2021 End: 08-15-[address] DORCAS AGUIRRE . Facility:[facility] Start: 07-29-2021 End: 07-29-2021 Patient encounter procedure Gertrudis Encarnacion MD Work Phone: [facility] Comment on above: Rhytides (Primary Dx ); Atrophic skin Procedures Date Procedure Procedure Detail Performing Clinician Start: 11-07-2024 SKIN EXCISION Eloisa mcallister MD Work Phone: Start: 11-07-2024 SKIN REPAIR Eloisa park MD Work Phone: Start: 09-19-2024 End: 09-19-2024 SKIN / NAIL BIOPSY Melissa Saba EXPORT AGENT-FOREST LANDSCAPE ECOLOGY PROFESSOR Work Phone: Start: 04-30-2024 Follow-up visit Follow-up SANJUANITA WHIPPLE Start: 04-10-2024 Colposcopy Colposcopy SANJUANITA PRICE Start: 03-20-2024 CRYOTHERAPY SKIN LESION Melissa Saba EXPORT AGENT-FOREST LANDSCAPE ECOLOGY PROFESSOR Work Phone: Start: 09-09-2023 End: 09-09-2023 Radex [...] above: Performed By: #### 3 [id number] #### [facility] [address] [place] [address] Start: 05-27-2022 POCT GLUCOSE BLOOD Cuba Butcher MD Work Phone: Start: 05-27-2022 Sars-cov-2 detection by dna/rna Saranya Butcher MD Work Phone: Start: 05-27-2022 Antibody screen rbc each serum technique Saranya Butcher MD Work Phone: Start: 05-17-2022 Antibody screen SARANYA OAKES Comment on above: Performed By: #### 3 [id number] #### [facility] [address] [address] Start: 05-17-2022 End: 05-17-2022 Physical therapy evaluation low complex 20 mins Saranya Butcher MD Start: 05-17-2022 End: 05-17-2022 Therapeut actvity direct pt contact each 15 min Saranya Butcher MD Plan of Treatment Date Care Activity Detail Author Start: 06-25-2025 Tobacco Screening Tobacco Screening [facility] Start: 06-11-2025 Tobacco Screening Tobacco Screening [facility] Start: 05-21-2025 Tobacco Screening Tobacco Screening [facility] Start: 04-30-2025 Tobacco Screening Tobacco Screening [facility] Start: 04-10-2025 Tobacco Screening Tobacco Screening [facility] Start: 04-02-2025 End: 04-02-2025 Patient encounter procedure 04/02/2025 9:10 AM EST Office Visit [facility] [address] [place] [address] Melissa Saba APRN-FOREST LANDSCAPE ECOLOGY PROFESSOR [address] [place] [address] [facility] Start: 12-31-2024 Influenza vaccination [facility] Start: 11-21-2024 End: 11-21-2024 Patient encounter procedure [facility] Comment on above: Arrived Start: 09-19-2024 End: 09-19-2024 Patient encounter procedure [facility] Comment on above: Arrived Start: 06-11-2024 End: 06-11-2024 Admission to same day surgery center 06/11/2024 2:30 PM EST - 06/11/2024 3:30 PM EST Surgery [facility] [address] [place] [address] Sanjuanita Whipple MD [address] [place] [address] LEEP CERVIX [27548 (CPT )] [facility] Comment on above: LEEP CERVIX [61788 (CPT )] Start: 06-11-2024 End: 06-11-2024 Colposcopy cervix vag loop eltrd bx cervix LEEP CERVIX abnormal PAP 06/11/2024 2:30 PM EST [facility] Start: 06-11-2024 Subsequent hospital visit by physician 06/11/2024 2:30 PM EST Hospital Encounter [facility] Surgery [address] [place] [id number] Sanjuanita Whipple MD [address] [place] [address] [facility] Start: 05-21-2024 End: 05-14-2025 Basic metabolic 2000 panel - Serum or Plasma Basic Metabolic Panel Lab Routine Preop examination Hypertension, unspecified type Expected: 05/21/2024, Expires: 05/14/2025 [facility] Work Phone: Comment on above: Expected: 05/21/2024, Expires: Start: 05-21-2024 End: 05-21-2024 Patient encounter procedure 05/21/2024 10:30 AM EST Procedure visit [facility] - Pre Admit [address] [place] [id number] [facility] Pre Admit Start: 04-30-2024 End: 04-30-2024 Patient encounter procedure 04/30/2024 8:45 AM EST Office Visit [facility] [place] [id number] Sanjuanita Whipple MD [address] [address] [facility] Start: 04-10-2024 End: 04-10-2024 Patient encounter procedure 04/10/2024 11:30 AM EST Procedure visit [facility] [address] [place] [id number] Sanjuanita Whipple MD [address] [place] [place] [address] [facility] Start: 03-20-2024 End: 03-20-2024 Patient encounter procedure 03/20/2024 9:50 AM EST Office Visit [facility] [address] [place] [phone] Melissa Saba APRN-FOREST LANDSCAPE ECOLOGY PROFESSOR [address] [place] [address] Arrived [facility] Comment on above: Arrived Start: 01-01-2024 COVID-19 Vaccine ( season) COVID-19 Vaccine ( season) [facility] Start: 01-01-2024 Influenza vaccination [facility] Start: 05-27-2023 Falls Risk Assessment Falls Risk Assessment [facility] Start: 05-17-2023 Hypertension/CHF/CAD Annual BMP Blood Test Hypertension/CHF/CAD Annual BMP Blood Test [facility] Start: 05-17-2022 Adolescent depression screening assessment Depression Screening [facility] Start: 05-17-2022 Hepatitis C screening Hepatitis C Screening [facility] Start: 05-17-2022 Lipid panel Cholesterol Screening (Lipid Panel) [facility] Start: 05-17-2022 Medicare Annual Wellness Visit Medicare Annual Wellness Visit [facility] Start: 05-17-2022 Screening for malignant neoplasm of breast Breast Cancer Screening [facility] Start: 05-17-2022 Screening for malignant neoplasm of colon Colorectal Cancer Screening: Colonoscopy [facility] Start: 05-17-2022 Screening for osteoporosis Osteoporosis Screening (Bone Density Screening) [facility] Start: 05-17-2022 Social Influencers of Health Screening Social Influencers of Health Screening [facility] Start: 05-06-2022 Patient referral Referrals: DME LT Hip Revision [facility] Start: 04-23-2021 COVID-19 VACCINE (2 - Pfizer 3-dose series) COVID-19 VACCINE (2 - Pfizer 3-dose series) [facility] Start: 04-23-2021 COVID-19 Vaccine (2 - Pfizer series) COVID-19 Vaccine (2 - Pfizer series) [facility] Start: 12-31-2020 Influenza vaccination INFLUENZA VACCINE (#1) [facility] [employer] [facility] Start: 12-24-2012 Fall Risk Screening Fall Risk Screening [facility] Start: 12-24-2012 Pneumococcal vaccination PNEUMOCOCCAL VACCINE SERIES (1 of 1 - PPSV23) [facility] Start: 12-24-1997 Administration of varicella zoster vaccine Zoster (Shingles) Vaccine (1 of 2) [facility] Start: 12-24-1997 Zoster vaccine hzv live for subcutaneous use ZOSTER (SHINGLES) VACCINE (1 of 2) [facility] Start: 12-24-1997 Zoster Vaccines (1 of 2) Zoster Vaccines (1 of 2) [facility] Start: 12-24-1992 Colonoscopy COLORECTAL CANCER SCREENING DISCUSSION [facility] Start: 1987 Fasting lipid profile LIPID SCREENING [facility] Start: 1987 Screening mammography MAMMOGRAM SCREENING DISCUSSION [facility] Start: 12-24-1968 Screening for malignant neoplasm of cervix CERVICAL CANCER SCREENING DISCUSSION [facility] Start: 12-24-1966 DTaP,Tdap and Td Vaccines (1 - Tdap) DTaP,Tdap and Td Vaccines (1 - Tdap) [facility] Start: 12-24-1966 DTaP,Tdap,and Td Vaccines (1 - Tdap) DTaP,Tdap,and Td Vaccines (1 - Tdap) [facility] Start: 12-24-1966 Third diphtheria, tetanus and acellular pertussis (DTaP) vaccination TDAP (ADULT) [facility] Start: 12-24-1965 Tetanus vaccination TETANUS [facility] Start: 1959 Depression Screening Depression Screening [facility] Start: 1959 Tobacco Screening Tobacco Screening [facility] Start: 1947 Hepatitis C antibody, confirmatory test HEPATITIS C VIRUS SCREENING [facility] Start: 1947 Screening for osteoporosis DEXA SCAN DISCUSSION [facility] Bacteria identified in Tissue by Culture Culture tissue with gram stain Microbiology Routine Other mechanical complication of internal left hip prosthesis, initial encounter ([facility]) 05/27/2022 11:30 AM EST [facility] Bacteria identified in Tissue by Culture Culture tissue with gram stain Microbiology Routine 05/27/2022 3:08 PM EST [employer] [employer] End: 05-27-2022 Bacteria identified in Unspecified specimen by Anaerobe culture [facility] [employer] Work Phone: Comment on above: Release Upon Ordering for 1 Occurrences starting 05/27/2022 Once for 1 Occurrenc es starting 05/27/2022 until 05/27/2022 Bacteria identified in Unspecified specimen by Anaerobe culture Culture anaerobic Microbiology Routine 05/27/2022 3:08 PM EST [employer] End: 04-10-2025 Cytopathology procedure, preparation of smear, genital source Pap Smear Pathology and Cytology Routine HPV in female 1 Occurrences starting 04/10/2024 until 04/10/2025 [employer] Work Phone: Comment on above: 1 Occurrences starting 04/10/2024 until 04/10/2025 Dermatopathology exam Dermatopat hology exam Pathology and Cytology Timed Neoplasm of unspecified behavior of bone, soft tissue, and skin Release Upon Ordering for 1 Occurrences starting 09/19/2024 [employer] Work Phone: Comment on above: Release Upon Ordering for 1 Occurrences starting 09/19/2024 Dermatopathology exam Dermatopat hology exam Pathology and Cytology Timed Basal cell carcinoma (BCC) of skin of other part of torso Release Upon Ordering for 1 Occurrences starting 11/07/2024 [employer] Work Phone: Comment on above: Release Upon Ordering for 1 Occurrences starting 11/07/2024 Fungus identified in Skin by Culture Culture fungal, other Microbiology Routine Other mechanical complication of internal left hip prosthesis, initial encounter ([facility]) 05/27/2022 11:30 AM EST [employer] Fungus identified in Skin by Culture Culture fungal, other Microbiology Routine 05/27/2022 3:08 PM EST [employer] End: 04-10-2025 High risk HPV w/brady High risk HPV w/brady Lab Routine HPV in female 1 Occurrences starting 04/10/2024 until 04/10/2025 [facility] Comment on above: 1 Occurrences starting 04/10/2024 until 04/10/2025 Mycobacterium sp identified in Unspecified specimen by Organism specific culture Culture AFB Microbiology Routine Other mechanical complication of internal left hip prosthesis, initial encounter ([facility]) 05/27/2022 11:30 AM EST [employer] Mycobacterium sp identified in Unspecified specimen by Organism specific culture Culture AFB Microbiology Routine 05/27/2022 3:08 PM EST [employer] [employer] Pathology study [facility] Comment on above: Release Upon Ordering for 1 Occurrences starting 05/27/2022, 1 completed End: 04-10-2025 Surgical Pathology Surgical Pathology Pathology and Cytology Routine HPV in female 1 Occurrences starting 04/10/2024 until 04/10/2025 [facility] Comment on above: 1 Occurrences starting 04/10/2024 until 04/10/2025 Immunizations Immunization Date Immunization Notes Care Provider John dumont 05-23-2024 influenza virus vaccine, unspecified formulation Melissa Saba EXPORT AGENT-FOREST LANDSCAPE ECOLOGY PROFESSOR Work Phone: [facility] 05-18-2023 influenza virus vaccine, unspecified formulation Melissa Saba EXPORT AGENT-FOREST LANDSCAPE ECOLOGY PROFESSOR Work Phone: [facility] 04-09-2020 influenza virus vaccine, unspecified formulation Gertrudis Encarnacion MD Work Phone: [facility] Payers Date Payer Category Payer Self-pay 2022 Medicaid [employer] MEDICARE A DVANTAGE [id number] 2022 Medicare AETNA MEDICARE A DVANTAGE AETNA MEDICARE ADVANTAGE [id number] 2022-Present [phone] [address] [place] [address] [id number] 2022 Medicare HMO A[employer]NA MEDICARE [id number] 2021 Unknown [id number]. 1.13.172.2.7.3.6 [id number] 1959 Medicare [id number] 1959 Medicare [id number] 1947 Unknown [id number] 2.16840.1.497841.3.579.2. 1947 Unknown [id number] 2.16840.1.794926.3.579.2 1947 Unknown [id number] 2.16.840.1.747181.3.579.2.1143 1947 Unknown [id number] 2.16840.1.478904.3.579.2.1143 1947 Unknown [id number] 2.16.840.1.680141.3.579.2.593 1947 Unknown [id number] 2.16.840.1.873243.3.579.2.593 1947 Unknown [id number] 2.16.840.1.127546.3.579.2.593 1947 Unknown [id number] 2.16.840.1.331030.3.579.2.593 1947 Unknown [id number] 2.16.840.1.026151.3.579.2.593 1947 Unknown [id number] 2.16.840.1.210495.3.579.2.593 1947 Unknown [id number] 2.16840.1.102046.3.579.2.593 1947 Unknown [id number] 2.16840.1.847065.3.579.2.593 1947 Unknown [id number] 2.16840.1.344436.3.579.2.593 1947 Unknown [id number] 2.16840.1.316093.3.579.2.593 1947 Unknown [id number] 2.16840.1.383722.3.579.2.593 1947 Unknown [id number] 2.16.840.1.862737.3.579.2.593 1947 Unknown [id number] 2.16.840.1.620448.3.579.2.1286 1947 Unknown [id number] 2.16.840.1.525781.3.579.2.1286 1947 Unknown [id number] 2.16.840.1.726394.3.579.2.1286 1947 Unknown [id number] 2.840.1.997644.3.579.2.1286 1947 Unknown [id number] 2.840.1.390308.3.579.2.128 1947 Unknown [id number] 2.840.1.039560.3.579.2.128 1947 Unknown [id number] 2.840.1.216936.3.579.2.128 1947 Unknown [id number] 2.840.1.846461.3.579.2.128 1947 Unknown [id number] 2.0.1.095085.3.579.2.128 1947 Unknown [id number] 2.0.1.041836.3.579.2.128 1947 Unknown [id number] 2.840.1.385967.3.579.2.1259 1947 Unknown [id number] 2.840.1.783289.3.579.2.1259 1947 Unknown [id number] 2.0.1.873808.3.579.2.1259 1947 Unknown [id number] 20.1.146933.3.579.2.1259 1947 Unknown [id number] 2.840.1.124691.3.579.2.1314 1947 Unknown [id number] 2.840.1.955405.3.579.2.131 1947 Unknown [id number] 2.840.1.324788.3.579.2.1314 1947 Unknown [id number] 2.840.1.614063.3.579.2.1314 Unknown [id number] Unknown [id number] 2.840.1.613793.3.579.2.462 Social History Date Type Detail Facility Start: 03-10-2021 End: 03-29-2023 Tobacco smoking status NHIS Never smoked tobacco [facility] Start: 03-10-2021 End: 03-29-2023 Tobacco use and exposure Smokeless tobacco non-user [facility] Start: 07-29-2021 Alcohol intake Ex-drinker (finding) [facility] Start: 03-10-2021 History SDOH Alcohol Frequency 1 [facility] Start: 1945 Sex Assigned At Not on file A [facility] Start: 05-27-2022 End: 11-21-2024 Alcohol intake Lifetime non-drinker (finding) [facility] Start: 05-17-2022 End: 05-27-2022 Exposure to SARS-CoV-2 (event) Not sure [facility] Start: 09-09-2023 Tobacco smoking status NHIS Unknown if ever smoked [facility] Start: 09-09-2023 Alcohol intake Alcohol Use Details [facility] Start: 1945 Sex Assigned At Female [facility] Start: 07-03-2019 Sexual Orientation Straight or heterosexual [facility] Start: 11-22-2023 End: 11-07-2024 History of Social function [facility] Start: 11-22-2023 End: 11-07-2024 Tobacco use panel [facility] Start: 11-09-2022 Alcohol Comment caffeine: none [facility] Start: 10-12-2022 Gender identity Identifies as female gender (finding) [facility] Start: 04-30-2024 End: 06-25-2024 Alcoholic beverage intake Current non-drinker of alcohol (finding) [facility] Unknown [facility] Start: 03-14-2017 Sex Female (finding) [facility] NEGATED: Highlighted rowStart: NINF History of tobacco use Passive smoker [facility] Medical Equipment Procedure Code Equipment Code Equipment Origin al Text Equipment Identifier Dates Hip Hd Option Bl x [facility] 32mm - Sna - [id number] [id number], [id number] FDA Start: 05-27-2022 Shl Actb 50mm Hi p 3 Hl Fin Pps - [id number] Start: 07-13-2017 Linr Actb G7 Ntr l E1 36mm D - [id number] Start: 07-13-2017 Hd Fem 36mm Opt Shl Actb G7 Bl Rpl 650-1057 - [id number] Start: 07-13-2017 Stm Fem 107.5mm 133d 11 Hi Os - [id number] Start: 07-13-2017 Slv Fem Opt -6mm Tpr Hip Blx D Rpl 650-1064 - [id number] Start: 07-13-2017 Goals Date Patient Goal Desired Activity /State Personal health goal Comment on above: Formatting of this n ote might be different from the original. Evaluation of progress towards goal: Maximize work with PT at discharge to strengthen L hip Clinical Notes 04-30-2020 to 11-21-2024 Eloisa Mustafa MD - 11/21/2024 10:35 AM Vania Mustafa MD - 11/07/2024 10:30 AM Rose Saba APRN-FOREST LANDSCAPE ECOLOGY PROFESSOR - 09/19/2024 8:30 AM Wilian Whipple MD [...] Visit: as scheduled documented in this encounter [facility] 11-07-2024 History of Present illness Narrative Images [...] OF OTHER PART OF TORSO Right Breast [place] macule at biopsy site Skin excision Lesion [...] BCC Check Margins: Yes Previous accession number: [id number] Follow up: 14 days for s/r documented in this encounter [facility] 09-19-2024 History of Present illness Narrative Images [...] SKIN (2) Left Lower Leg - Anterior [place] papule Lesion biopsy Type of biopsy: tangential [...] lesion: 1.0 x 1.0 cm Right Breast [place] papule Lesion biopsy Type of biopsy: tangential [...] months skin exam documented in this encounter [facility] 06-29-2024 Miscellaneous Notes Patient states she got [...] 07/04/24 1:46 PM documented in this encounter [facility] 06-29-2024 Telephone encounter Note Patient states she got a bill for an iodine 30 mg pill with a date of 06/11/24. This was the day of her LEEP surgery. Patient states neither she or her remember her taking any pills in pre-op. Please call Patient. Thank you. [facility] 06-29-2024 Telephone encounter Note Attempted to call the patient and left a message for a call back. - oJsefa Vallejo RN 07/02/24 8:57 AM [facility] 06-29-2024 Telephone encounter Note Patient returned Joesfa Vallejo's call and is requesting to be call back. [facility] 06-29-2024 Telephone encounter Note Called the patient and left a message for a call back. - Josefa Vallejo RN 07/04/24 1:41 PM [facility] 06-29-2024 Telephone encounter Note Verified with coding that the patient was charged for Iodine Tincture which is a cleaning agent they use on surgical sites prior to making an incision to clean the area of bacteria or other micro organisms. Pt called back and informed her of this information. She verbalized she understood. - Josefa Vallejo RN 07/04/24 1:46 PM [facility] 06-25-2024 History of Present illness Narrative Becky [...] 06/11/2024 Performed by Sanjuanita Whipple MD at [facility] REPLACEMENT TOTAL JOINT ANTERIOR SUPINE INTERMUSCULAR HIP Left 07/13/2017 Performed by Arnoldo Terrazas MD at [facility] Family History Problem Relation [...] SANJUANITA WHIPPLE MD documented in this encounter [facility] [employer] [facility] 05-21-2024 Instructions Anne-Marie Middleton RN - 05/21/2024 10:30 AM EST Preoperative Education Checklist- General Surgery date: 06/11/24 Surgery time: 2:30 p.m. Arrival time: 12:30 p.m. 1. Bring a photo ID and your insurance card with you the day of surgery. You will check in at the main lobby of the [facility]- registration desk is straight ahead as soon as you walk in. Tell them you are here for surgery. 2. If you have a Living Will/Durable Power of Syrup Mixer Assistant for Health Care that is not on [...] after you have bathed. 5. NO nail belgian/acrylic on at least one finger. If you are having a hand, wrist or foot surgery then all nail belgian and artificial/acrylic nails must be removed from [...] please call the Preadmission Testing office at [phone], Mon.-Fri. 7 a.m.-3 p.m. Leave a voicemail [...] with your doctor. documented in this encounter [facility] 05-21-2024 Miscellaneous Notes Preoperative Education Checklist- General Surgery date: 06/11/24 Surgery time: 2:30 p.m. Arrival time: 12:30 p.m. 1. Bring a photo ID and your insurance card with you the day of surgery. You will check in at the main lobby of the [facility]- registration desk is straight ahead as soon as you walk in. Tell them you are here for surgery. 2. If you have a Living Will/Durable Power of Syrup Mixer Assistant for Health Care that is not on [...] after you have bathed. 5. NO nail belgian/acrylic on at least one finger. If you are having a hand, wrist or foot surgery then all nail belgian and artificial/acrylic nails must be removed from [...] please call the Preadmission Testing office at [phone], Mon.-Fri. 7 a.m.-3 p.m. Leave a voicemail [...] Patient verbalized understanding. documented in this encounter [facility] 05-21-2024 Nurse Note Preoperative Education Checklist- General Surgery date: 06/11/24 Surgery time: 2:30 p.m. Arrival time: 12:30 p.m. 1. Bring a photo ID and your insurance card with you the day of surgery. You will check in at the main lobby of the [facility]- registration desk is straight ahead as soon as you walk in. Tell them you are here for surgery. 2. If you have a Living Will/Durable Power of Syrup Mixer Assistant for Health Care that is not on [...] after you have bathed. 5. NO nail belgian/acrylic on at least one finger. If you are having a hand, wrist or foot surgery then all nail belgian and artificial/acrylic nails must be removed from [...] please call the Preadmission Testing office at [phone], Mon.-Fri. 7 a.m.-3 p.m. Leave a voicemail [...] to the follow-up appointment with your doctor. [facility] 05-21-2024 Nurse Note Surgical instructions reviewed. Patient verbalized understanding. [facility] 05-07-2024 Miscellaneous Notes Patient scheduled for surgery with Dr. Whipple on 06/11/24 at 2:30pm with hospital arrival of 12:30pm. PAT scheduled on 05/21/24 at 10:30am. Patient notified of all dates and times and letter mailed. documented in this encounter [facility] 05-07-2024 Telephone encounter Note Patient scheduled for surgery with Dr. Whipple on 06/11/24 at 2:30pm with hospital arrival of 12:30pm. PAT scheduled on 05/21/24 at 10:30am. Patient notified of all dates and times and letter mailed. [facility] 04-10-2024 History of Present illness Narrative Colposcopy [...] SANJUANITA WHIPPLE MD documented in this encounter [facility] 03-27-2024 History of Present illness Narrative Becky [...] 07/13/2017 Performed by Arnoldo Terrazas MD at [facility] Family History Problem Relation [...] Ruble 03/27/24 1129 documented in this encounter [facility] 03-27-2024 Miscellaneous Notes Disclaimer: This note is [...] legal medical record. documented in this encounter [facility] 03-27-2024 Progress note Formatting of t [...] a part of the legal medical record. [facility] History of Present illness Narrative [...] limited to risks of scarring, darker or stock selector pigmentary changes, recurrence, incomplete removal and infection. [...] months skin exam documented in this encounter [facility] 09-09-2023 Evaluation note Type assessment Presence of artificial hip, left assessment Primary osteoarthritis of left h ip [facility] Work Phone: 1(928) 572-272805-10-2024 History of Present illness Narrative* Encounter Date [...] Surgery: LH revision 05/17/22 DAC. Comments: Patient presents for LH revision post [...] Factors: Previous Surgery: LTHA 2017 Dr. Salazar ([place]). Comments: She complains of worsening left hip pain at her groin and thigh. Worse with weight bearing. Using a cane to assist with ambulation. Dr. Terrazas recently told her recently that her stem is loose but he doesn't do revisions. She was seen at [facility] in 2019 but it appeared that the implant had stabilized. Patient states that her symptoms are worsening and she can barely function at this point. No history of infection. [facility] Work Phone: 1(138) 293-805601-31-2023 NotePROCEDURE: XR HIP LT 2 3V W [...] Electronically authenticated by: FER JUAREZ Date: 2022-06-01 12:03[facility]01-26-[facility] History of Present illness Narrative* Gaby Sanchez [...] Peng, PT - 05/27/2022 3:36 PM EST [facility] [...] of internal left hip prosthesis, initial encounter ([facility]) [...] of Steps 1 Prior Function Level of [place] Independent with mobility and functional transfers Bed [...] 161Claudia Peng PT Completed Goal: Pt will transfer with SBA. (Resolved) Dates: Start: 05/27/22 Expected End: 05/27/22 Met: 05/27/22 Outcomes Date/Time User Outcome 05/27/22 161Claudia Peng PT Completed Goal: Pt will ambulate 100 ft. with wheeled walker and SBA (Resolved) Dates: Start: 05/27/22 Expected End: 05/27/22 Met: 05/27/22 Outcomes Date/Time User Outcome 05/27/22 Vasu Peng PT Completed Goal: Pt will ascend/descend [...] POCT 05/27/2022 98 IMAGING documented [facility] [id number] Hospital course Narrative* Marisela Pope RN - [...] SHEETS Contact Surgeon's office with any questions/concerns [phone] -Plasma Flow SCD'S Compression leg pumps on [...] or concerns. Verify Office location when scheduling. [phone] * Princess Kenney RN - 05/25/2022 1:43 [...] prior to your surgery. Check in at receptionist doctor's office desk [address] [place] [address]. If Outpatient, these additional instructions apply: An adult must stay with you the whole time you are here and drive you home. An adult must stay withyou at home for 24 hours due to Anesthesia. If you have JESUS, you are required to stay 3 hours after your surgery before we can discharge you. documented in this encounterEinstein Medical Center [id number] Procedure note* Nancy Daniel RN - 05/27/2022 10:[address] Pemberton, Dr. Butcher, OR Nurse all aware of this patients skin tear on the right ankle (caused when patient was putting on her socks) assessed, documented and wound dressing applied. [facility] [id number] Procedure note* Nancy Daniel RN - 05/27/2022 10:[address] Pemberton, Dr. Butcher, OR Nurse all aware of this patients skin tear on the right ankle (caused when patient was putting on her socks) assessed, documented and wound dressing applied. documented in this encounterEinstein Medical Center [id number] History and physical note* Saranya Butcher MD - 05/27/2022 9:49 AM EST History and Physical Update ( H&P completed within the previous thirty days ) I personally reviewed the History and Physical, interviewed and examined the patient prior to surgery. No changes have occurred in the patient's condition since the History and Physical was completed. [facility] Work Phone: [phone] History and physical note* Saranya Butcher MD - 05/27/2022 9:49 AM EST History and Physical Update ( H&P completed within the previous thirty days ) I personally reviewed the History and Physical, interviewed and examined the patient prior to surgery. No changes have occurred in the patient's condition since the History and Physical was completed. documented in this encounterEinstein Medical Center [id number] NotePROCEDURE: XR HIP LT 2 3V W [...] Electronically authenticated by: FER JUAREZ Date: 2022-03-31 06:56[facility]03-30-2022 History of Present illness Narrative* Spring [...] see them back PRN. documented in this [facility]12-30-2020 NoteChief Complaint referral for positive occult stool [...] Use:., 04/30/2020 Family History Family history is negativeBellevue HospitalComment on above:Result Comment: Electronically Signed By: VALERIE DINERO, Ajith Rowe\Date and Time Signed: 04/30/20 15:38 ESTConsult note* Clinical Note Date No Information [facility] Work Phone: Discharge summary* Clinical Note Date No Information [facility] Work Phone: Evaluation note* Diagnosis Rhytides- Primary Other specified hypertrophic and atrophic condition of skin Atrophic skin Other specified hypertrophic and atrophic condition of skin [facility] Diagnosis Other mechanical complication of internal left hip prosthesis, initial encounter ([facility])- Primary documented in this encounter [facility]* Diagnosis Pain Generalized pain documented in this encounter [facility]* Diagnosis Seborrheic keratosis- Primary Onychomycosis Dermatophytosis of nail Lentigines Actinic keratosis [facility]* Diagnosis Preop examination- Primary Unspecified pre-operative examination Hypertension, unspecified type Preop examination Unspecified pre-operative examination Hypertension, unspecified type [facility] 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 [facility]* 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 vaginitis Postmenopausal atrophic vaginitis [facility]* 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 [facility]* Diagnosis Seborrheic keratosis- Primary Lentigines Actinic keratosis History of SCC (squamous cell carcinoma) of skin Personal history of other malignant neoplasm of skin Neoplasm of unspecified behavior of bone, soft tissue, and skin documented in this encounter [facility]* Diagnosis Basal cell carcinoma (BCC) of skin of other part of torso- Primary documented in this encounter [facility] note* Diagnosis Encounter for removal of sutures- Primary documented in this encounter [facility] HealthcareHistory and physical note* Clinical Note Date No Information [facility] [employer] Phone: Hospital Discharge instructions* Attachments The following attachments cannot be sent through Care Everywhere. * DVT (Deep Vein Thrombosis): Prevention: General Info (Monegasque) * Incentive Spirometer: General Info (Monegasque) * Fall Prevention (Monegasque) * Opioids: General Info (Monegasque) * Constipation (Monegasque) * Antibiotics: General Info (Monegasque) documented in this encounterSanta [facility] HealthInstructions* Date Instruction Additional Infor mation No Information [facility] [employer] Work Phone: InstructionsNot on filedocumented in this encounter [facility]ructionsNot on filedocumented in this encounter [facility] SystemInstructionsNot on filedocumented in this encounter [facility] SystemInstructionsNot on filedocumented in this encounter [facility]* Clinical Note Date No Information [facility] [email or web address] Phone: Reason for referral (narrative)* Reason For Referral No Information [facility] Work Phone: Reason for visit Narrative* Auth/Cert Specialty Diagnoses / Procedures Referred By Contac t Referred To Contact Diagnoses Other mechanical complication of internal left hip prosthesis, initial encounter ([facility]) T84.091A Procedures ID REVISION PRATIK ACETABULAR COMPONENT ONLY W/WO AUTOGRAFT/ALLOGRAFT ID REVISION PRATIK ACETABULAR COMPONENT ONLY W/WO AUTOGRAFT/ALLOGRAFT 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, anterior Saranya Butcher MD [address] [place] [address] [address]vez [address] [place] [address] Referral ID Status Reason Start Date Expiration Date Visits Re quested Visits Authorized [id number] 1 1 [facility] Summary Purpose Family History No Family History [...] and content) DATE CREATED AUTHOR 09/27/2020 Jonn Miller [facility] DATE CREATED AUTHOR AUTHOR'S ORGANIZ ATION 11/30/2021 [facility] DATE CREATED AUTHOR AUTHOR'S ORGANIZ ATION 08/02/2022 [facility] DATE CREATED AUTHOR AUTHOR'S ORGANIZ ATION 08/07/2022 [facility] DATE CREATED AUTHOR AUTHOR'S ORGANIZ ATION 10/21/2022 [facility] DATE CREATED AUTHOR AUTHOR'S ORGANIZ ATION 06/20/2024 [facility] DATE CREATED AUTHOR AUTHOR'S ORGANIZ ATION 06/26/2024 [facility] DATE CREATED AUTHOR AUTHOR'S ORGANIZ ATION 11/22/2024 [facility] DATE CREATED AUTHOR AUTHOR'S ORGANIZ ATION 01/15/2025 [facility] Reason for Visit (unrecogniz ed section and content) Reason Comments Cosmetic Restylane Reason Comments Skin Check Follow-up Reason Comments Consult Reason Comments Colposcopy Reason Comments Skin Check Suspicious Skin Lesion Reason Comments Excision Reason Comments Suture / Staple Removal Care Teams (unrecognized sec tion and content) Tissue Packer Relationship Specialty Start Date End Date Dorcas Aguirre MD [address] [place] [address] PCP - General Family Medicine 03/10/21 Tissue Packer Relationship Specialty Start Date End Date Dorcas Aguirre MD [address] [place] [address] PCP - General Family Medicine 05/18/22 Tissue Packer Relationship Specialty Start Date End Date Dorcas Aguirre MD [address] [place] [address] PCP - General Family Medicine 05/18/22 Name Effective Dates (start - stop) Status Members No Information Tissue Packer Relationship Specialty Start Date End Date Dorcas Aguirre MD [address] [place] [address] PCP - General Family Medicine 10/13/22 Tissue Packer Relationship Specialty Start Date End Date Dorcas Aguirre MD [address] [place] [address] PCP - General Family Medicine 10/13/22 Tissue Packer Relationship Specialty Start Date End Date Dorcas Aguirre MD PCP - General 04/05/17 Tissue Packer Relationship Specialty Start Date End Date Dorcas Aguirre MD PCP - General 04/05/17 Tissue Packer Relationship Specialty Start Date End Date Dorcas Aguirre MD PCP - General 04/05/17 Tissue Packer Relationship Specialty Start Date End Date Dorcas Aguirre MD PCP - General 04/05/17 Tissue Packer Relationship Specialty Start Date End Date Dorcas Aguirre MD [address] [place] [address] PCP - General Family Medicine 10/13/22 Tissue Packer Relationship Specialty Start Date End Date Dorcas Aguirre MD [address] [place] [address] PCP - General Family Medicine 10/13/22 Tissue Packer Relationship Specialty Start Date End Date Dorcas Aguirre MD [address] [place] [address] PCP - General Family Medicine 10/13/22 Tissue Packer Relationship Specialty Start Date End Date Dorcas Aguirre MD [address] [place] [address] PCP - General Family Medicine 10/13/22 Tissue Packer Relationship Specialty Start Date End Date Dorcas Aguirre MD [address] [place] [address] PCP - General Family Medicine 10/13/22 Ordered [...] 2 times daily PRN, constipation, Starting on Inze 05/27/22 at 1445, Follow dose with 8 [...] BE BASED ON THE PRIMARY CLINICAL RECORDS. [employer] [facility]. provides no warranty or guarantee of the accuracy or completeness of information in this document.
== END 2025-01-18 13:00 | disposition home or self-care (01) ==
LOC: RAD 13:05
PROVIDERS: PCP Family Medicine; Visit Provider Family Medicine
DX: M25.551 Pain in right hip (principal); M16.11 Unilateral primary osteoarthritis, right hip
CPT/HCPCS: 73502

== ENCOUNTER 2025-04-10 22:08 | Emergency (ER) | payer MEDICARE, SELFPAY ==
--- OUTSIDE RECORDS SUMMARY | 2025-04-02 09:25 | XMS_ITS | Encounter Summary ---
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 Name Role Phone Rodney Hernandez MD Primary Care Provider [phone] Reason for Visit * ReasonCommentsSkin Check Encounter Details DateTypeDepartmentCare Team (Latest Contact Info)Sdqhuiuyhig46/02/2025 9:25 AM ESTOffice Visit [facility] [address] [facility] [address] [place] [id number] Mahi Saba APRN-CNP [address] [facility] [address] [place] [address] Seborrheic keratosis (Primary Dx); Lentigines; Actinic keratosis; Neoplasm of unspecified behavior of bone, soft tissue, and skin Social History Tobacco UseTypesPacks/DayYears UsedDateSmoking Tobacco: NeverPassive Smoke Exposure: NeverSmokeless Tobacco: NeverAlcohol UseStandard Drinks/WeekComments Never0 (1 standard drink = 0.6 oz pure alcohol)caffeine: noneComments UnknownSex and Gender InformationValueDate RecordedSex Assigned at BirthFemale 10/12/2022 2:42 PM EDTLegal VznXhaflj59/15/2023 6:54 PM EDTGender IdentityFemale 10/12/2022 2:42 PM [...] limited to risks of scarring, darker or calculator operator pigmentary changes, recurrence, incomplete removal and infection. [...] Plan of Treatment DateTypeDepartmentCare Team (Latest Contact Info)Qvzhnxraebb56/04/2026 9:15 AM EDTOffice Visit [facility] [address] [place] [address] Mahi Saba APRN-CNP [address] [place] [address] NameTypePriorityAssociated DiagnosesOrder ScheduleDermatopathology examPathology and CytologyTimed Neoplasm of unspecified behavior of bone, soft tissue, and skin Release Upon Ordering for 1 Occurrences starting 04/02/2025documented as of this encounter Procedures Procedure NamePriorityDate/TimeAssociated DiagnosisCommentsCRYOTHERAPY SKIN XZNURNPqndnca91/02/2025 9:38 AM EST Actinic keratosis SKIN / NAIL OYBHHHQmncknd58/02/2025 9:30 AM EST Neoplasm of unspecified behavior of bone, soft tissue, and skin documented in this encounter Results * Cryotherapy, skin lesion (04/02/2025 9:38 AM EST) Narrative Authorizing ProviderResult TypeResult StatusNatmissael Gtz Felter KNITTING MACHINE OPERATOR-CNPDERM PROCEDURE ORDERABLESFinal Result * Lesion biopsy (04/02/2025 [...] cc Authorizing ProviderResult TypeResult StatusNatalieleanor Gtz Felter KNITTING MACHINE OPERATOR-CNPDERM PROCEDURE ORDERABLESFinal Result documented in this encounter Visit Diagnoses Diagnosis Seborrheic keratosis- Primary Lentigines Actinic keratosis Neoplasm of unspecified behavior of bone, soft tissue, and skin documented in this encounter Care Teams Team MemberRelationshipSpecialtyStart DateEnd Date Rodney Hernandez MD [address] [place] [address] PCP - GeneralFamily Medicine10/13/22documented as of this encounter
[2025-04-10] VITALS (13 sets, daily range): BP systolic 92–123; BP diastolic 64–66; PULSE 77–89; TEMP 36.4; O2SAT 86–100; BMI 21.5
--- NOTE | 2025-04-10 22:26 | ECG_ITS ---
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
--- OUTSIDE RECORDS SUMMARY | 2025-04-10 22:48 | XMS_ITS | CCD ---
Author Organization [facility] Care Team Providers Care Pot Firer Name Role Phone Dorcas Aguirre MD Primary Care Provider [phone] DORCAS AGUIRRE Referring Unavailable DORCAS AGUIRRE Primary Care Unavailable GERI CHONG Attending Unavailable GERI CHONG Admitting Unavailable DORCAS AGUIRRE Primary Care Unavailable DORCAS AGUIRRE Referring Unavailable SELF, REFERRED Attending Unavailable SELF, REFERRED Admitting Unavailable Dorcas Aguirre MD Primary Care Provider [phone] SARANYA BUTCHER Admitting Unavailable SARANYA BUTCHER Attending Unavailable ANTHONY AGUIRRELAS Primary Care Unavailable [facility], [facility] Consulting Unavailable SARANYA BUTCHER Referring Unavailable DORCAS AGUIRRE Primary Care Unavailable TIMOTHY ., DR TOSCANO Attending Unavailable HOY ., DR TOSCANO Admitting Unavailable HOY ., DR TOSCANO Primary Care Unavailable HOY ., DR TOSCANO Consulting Unavailable ZIEBER, DR FER Cameron Consulting Unavailable FOSTER, DR SARANYA Massey Consulting Unavailable AHMED, DR GALEANA Admitting Unavailable HOY ., DR TOSCANO Primary Care Unavailable AHMED, DR GALEANA Attending Unavailable AHMED, DR GALEANA Consulting Unavailable HOY ., DR TOSCANO Admitting Unavailable HOY ., DR TOSCANO Attending Unavailable HOY ., DR TOSCANO Primary Care Unavailable HOY ., DR TOSCANO Consulting Unavailable ELTAHAWMarlene, DR KENNEY Consulting Unavailable TIMOTHY ., DR TOSCANO Primary Care Unavailable ELTAHAWMarlene, DR KENNEY Attending Unavailable ELTAFRANCISCO, DR KENNEY [...] Unavailable HOY ., DR TOSCANO Consulting Unavailable FOSTER, DR SARNAYA Massey Consulting Unavailable HOY ., DR TOSCANO [...] Unavailable Dorcas Aguirre MD Primary Care Provider [phone] Dorcas Aguirre MD Primary Care Provider [phone] SANJUANITA WHIPPLE Referring Unavailable HOY, DORCAS M [...] MUSTAFA Attending Unavailable MELISSA SABA Attending Unavailable Herminio DINERO, Saranya Unavailable Unavailable Herminio DINERO, Saranya Unavailable Unavailable Herminio DINERO, Saranya Unavailable Unavailable Herminio DINERO, Saranya Unavailable Unavailable Herminio DINERO, Saranya Unavailable Unavailable Herminio DINERO, Saranya Unavailable Unavailable Saranya Butcher Attending Unavaila ble Saranya Butcher Referring Unavaila ble Hoy, Dorcas M Primary Care Unavailable Saranya [...] Primary Care Unavailable Anu Grimes Attending Unavailable Saranya Butcher Attending Unavaila ble Hoy, Dorcas M Referring Unavailable Hoy, Dorcas M Primary Care Unavailable Saranya Butcher Attending Unavaila ble Hoy, Dorcas M Referring Unavailable Hoy, Dorcas M Primary Care Unavailable Hoy, Dorcas M Referring Unavailable Hoy, Dorcas M Primary Care Unavailable Anu Grimes Attending Unavailable Anu Grimes Attending Unavailable Hoy, Dorcas M Referring Unavailable Hoy, Dorcas M Primary Care Unavailable Anu Grimes Attending Unavailable Saranya Butcher Referring Unavaila ble Hoy, Dorcas M Primary Care Unavailable Medications Current Medications MedicationDrug Class(es)DatesSig (Normalized)Sig (Original)alendronic acid 70 mg oral tablet (14 sources)BisphosphonateStart: 59-64-9551xetvingexyu 70 MG tabletamitriptyline hydrochloride 50 mg oral tablet (18 sources)Tricyclic AntidepressantStart: 34-91-9368nkdj 1 tablet by mouth once dailyamitriptyline (ELAVIL) 50 mg tablet Take 1 tablet (50 mg total) by mouth nightly. 02/26/2017 Activeaspirin 81 mg chewable tablet (2 sources)Platelet Aggregation Inhibitor, Nonsteroidal Anti-inflammatory Drug Start: 05-28-2022 End: 79-12-7623evhv 1 tablet by mouth twice dailyaspirin 81 mg chewable tablet Chew 1 tablet (81 mg total) 2 (two) times a day. Aspirin 81 mg , 1 tab PO BID for 6 weeks, Disp appropriate quantity. If patient is prescribed Arixtra/Lovenox/Xarelto, do not begin Aspirin until that medication is finished, then only take Aspirin for 4 weeks. 84 tablet0 05/28/2022 07/09/2022 Active Start: 05-28-2022 End: 74-83-9082hfkxxrc EC tablet 81 mgcelecoxib 200 mg oral capsule (14 sources)Nonsteroidal Anti-inflammatory DrugStart: 05-28-2022 End: 38-53-2447gfot 200 mg by mouth once jumcb980 mg, oral, Daily, First dose on Tue05/28/22 at 0900, Recovery & On UnitStart: 05-27-2022 End: 22-62-7764xidm 1 capsule by mouth once dailycelecoxib (CeleBREX) 200 MG capsule Take 200 mg by mouth Daily 05/27/2022 Activecephalexin 500 mg oral capsule (12 sources)Cephalosporin AntibacterialStart: 05-27-2022 End: 49-52-8803khwcrcnolx (Keflex) 500 MG capsule 05/27/2022 Active cholecalciferol 0.05 mg oral tablet (3 sources)Vitamin Dtake 1 tablet by mouth in the morningcholecalciferol, vitamin D3, 2,000 units tablet Take 1 tablet (2,000 Units total) by mouth in the morning. Activediclofenac sodium 75 mg delayed release oral tablet (20 sources)Nonsteroidal Anti-inflammatory DrugStart: 34-16-2956bwkt 1 tablet by mouth in the morning, then take 1 tablet by mouth at bedtimediclofenac (VOLTAREN) 75 mg EC tablet Take 1 tablet (75 mg total) by mouth in the morning and 1 tablet (75 mg total) before bedtime. 11 12/30/2018 Activefluorouracil 50 mg/ml topical cream (18 sources)Nucleoside Metabolic InhibitorStart: 44-14-0210gykutqqiflkk (Efudex) 5 % cream Indications: Actinic keratosis Apply to directed areas on upper arms and chest bid x 14 days 40 g 09/19/2024 Activefluorouracil (Efudex) 5 % solution every 12 (twelve) hours Activelevothyroxine sodium 0.075 mg oral tablet (20 sources)l-ThyroxineStart: 03-18-5955cerl 1 tablet by mouth once daily before breakfastSYNTHROID 75 mcg tablet Take 1 tablet (75 mcg total) by mouth every morning before breakfast. Take on empty stomach 02/24/2024 ActiveStart: 05-28-2022 End: 23-07-755665 mcg, oral, Daily, First dose on Tue05/28/22 at 0600 ORAL ROUTE: take on an empty stomach and separate from other medications. ENTERAL TUBE ROUTE: If newly initiated enteral nutrition duration is over 5 days, hold enteral nutrition 1 hour before and after drug administration, per ASPEN guidelines.liothyronine sodium 0.005 mg oral tablet (14 sources)l-TriiodothyronineStart: 05-28-2022 End: 54-17-6649cqni 5 ug by mouth once daily5 mcg, oral, Daily, First dose on Tue05/28/22 at 0600liothyronine (Cytomel) 5 MCG tablet Activelisinopril 10 mg oral tablet (20 sources)Angiotensin Converting Enzyme InhibitorStart: 05-28-2022 End: 78-80-0196lzmz 10 mg by mouth once daily10 mg, oral, Daily, First dose on Tue05/28/22 at 0900 Hold for systolic blood pressure less than 110.Start: 03-33-6400zpkkgxfygq 10 MG tabletStart: 02-63-1364zqij 2 tablets by mouth once daily before breakfastlisinopril (PRINIVIL,ZESTRIL) 10 mg tablet Take 2 tablets (20 mg total) by mouth every morning before breakfast. 04/01/2017 Active montelukast 10 mg oral tablet (14 sources)Leukotriene Receptor Antagonistmontelukast (Singulair) 10 MG tablet in the morning. Activeondansetron 4 mg disintegrating oral tablet (20 sources)Serotonin-3 Receptor AntagonistStart: 42-61-2596kmjlftkpvva ODT (Zofran-ODT) 4 MG disintegrating tablet 06/03/2022 ActiveStart: 05-27-2022 End: 20-22-8952vlqflqmpqno (Zofran) 4 MG tablet 05/27/2022 ActiveStart: 05-27-2022 End: 11-74-4234lpni 4 mg intravenously every six hours as neededondansetron (PF) (ZOFRAN) injection 4 mgStart: 05-27-2022 End: 74-53-9412iadp 1 tablet intravenously every eight hours as needed for nausea4 mg, oral, Every 8 hours PRN, vomiting, nausea, Starting on Inez 05/27/22 at 1336, Recovery & OnUnit -Give IV if patient is unable to take orally. - If inadequate response within 30 minutes, proceed to next-line agent or contact provider if no further options ordered. For ODT tablets: -Do not remove from blister pack until just before administering. -Patientshould allow tablet to dissolve on tongue.pantoprazole 40 mg delayed release oral tablet (3 sources)Proton Pump Inhibitortake 1 tablet by mouth in the morning pantoprazole (PROTONIX) 40 mg EC tablet Take 1 tablet (40 mg total) by mouth in the morning. Activephenazopyridine hydrochloride 200 mg delayed release oral tablet (11 sources)Start: 60-51-0406guvvnzqbxyxtmpz (Pyridium) 200 MG tablet 08/25/2022 Active0.25 mg, 0.5 mg dose 1.5 ml semaglutide 1.34 mg/ml pen injector (2 sources)Start: 20-67-4260pnydndcsljd 0.25 mg or 0.5 mg(2 mg/1.5 mL) pen injector INJECT 25 UNITS (0.25MG) SUBCUTANEOUSLY ONCE WEEKLY ON THE SAME DAY 05/28/2024 Activesimvastatin 20 mg oral tablet (20 sources)HMG-CoA Reductase InhibitorStart: 00-18-7805zhym 1 tablet by mouth once dailysimvastatin (ZOCOR) 20 mg tablet Take 1 tablet (20 mg total) by mouth nightly. 04/01/2017 Activesulfamethoxazole 800 mg / trimethoprim 160 mg oral tablet (11 sources)Dihydrofolate Reductase Inhibitor Antibacterial, Sulfonamide AntimicrobialStart: 89-29-9251lrgc 1 tablet by mouth once in the morning, then take 1 tablet by mouth once at bedtimesulfamethoxazole-trimethoprim (Bactrim DS) 800-160 MG per tablet Take 1 tablet by mouth in the morning and 1 tablet before bedtime. 08/25/2022 Activeterbinafine 250 mg oral tablet (3 sources)Allylamine AntifungalStart: 01-13-2023 End: 70-81-6748wrso 1 tablet by mouth once dailyterbinafine (LamISIL) 250 MG tablet Indications: Onychomycosis Take 1 po daily x 2 months 30 tablet1 01/13/2023 03/20/2024 Discontinued (Therapy completed)traMADol hydrochloride 50 mg oral tablet (12 sources)Opioid AgonistStart: 39-34-0037ifwEGTrs (Ultram) 50 MG tablet 05/27/2022 ActiveStart: 05-27-2022 End: 09-67-6096silb 50-100 mg by mouth every six hours as neededtraMADoL (ULTRAM) 50 mg tablet Take 1-2 tablets (50-100 mg total) by mouth every 6 (six) hours if needed for moderate pain for up to 7 days. Dx: Z96.6 Max Daily Amount: 400 mg 40 tablet 0 05/27/2022 06/03/2022 Active Completed/Discontinued Medications MedicationDrug Class(es)DatesSig (Normalized)Sig (Original)acetaminophen 500 mg oral tablet (14 sources)Start: 05-27-2022 End: 17-18-0243rztjmszeeaimy (TYLENOL) tablet 1,000 mgStart: 05-27-2022 Acetaminophen Extra Strength 500 MG tablet 05/27/2022 ActiveStart: 05-27-2022 End: 08-34-2569ikdb 2 tablets by mouth three times daily, then take 6 tablets by mouth once dailyAcetaminophen Extra Strength 500 MG tablet TAKE 2 TABLETS BY MOUTH 3 TIMES DAILY FOR 7 DAYS*DO NOT EXCEED 6 TABLETS PER DAY* 05/27/2022 ActiveStart: 05-27-2022 End: 88-43-5829ypms 1 tablet by mouth every six hours as neededacetaminophen (TYLENOL) tablet 325 mgaluminum hydroxide 40 mg/ml / magnesium hydroxide 40 mg/ml / simethicone 4 mg/ml oral suspension (1 source)Start: 05-27-2022 End: 74-92-5733omsuuxvs-magnesium hydroxide-simethicone (MAALOX) 200-200-20 mg/5 mL suspension 30 mLatorvastatin 10 mg oral tablet (1 source)HMG-CoA Reductase InhibitorStart: 05-27-2022 End: 65-57-5441pdnn 10 mg by mouth once daily10 mg, oral, Nightly, First dose on Tue05/27/22 at 2100bethanechol chloride 25 mg oral tablet (1 source)Cholinergic Muscarinic AgonistStart: 05-27-2022 End: 92-33-2141ammosjnfhgw (URECHOLINE) tablet 25 mgbisacodyl 10 mg rectal suppository (1 source)Stimulant LaxativeStart: 05-27-2022 End: 01-53-3944vcglomsbW (DULCOLAX) suppository 10 mgcalcium chloride 0.0014 meq/ml / potassium chloride 0.004 meq/ml / sodium chloride 0.103 meq/ml / sodium lactate 0.028 meq/ml injectable solution (3 sources)Start: 05-27-2022 End: 29-51-3315xpfq 100 mL intravenously every kgyn210 mL/hr, intravenous, Continuous, Starting on Tue05/27/22 at 1500Start: 05-27-2022 End: 13-64-5129jddgyhqi Ringer's infusionceFAZolin (ANCEF) 2 gram/20 mL IV syringe 2 g (1 source)Start: 05-27-2022 End: g, intravenous, Administer over 3 Minutes, Every 8 hours, First dose on Tue05/27/22 at 1800, For 2 doses, Recovery & On Unit Indication: Prophylaxis-SurgicalcloNIDine hydrochloride 0.1 mg oral tablet (1 source)Central alpha-2 Adrenergic AgonistStart: 05-27-2022 End: 83-53-6718npqEXFvja (CATAPRES) tablet 0.1 mgcyclobenzaprine hydrochloride 10 mg oral tablet (1 source)Muscle RelaxantStart: 05-27-2022 End: 83-86-3216pmkufxwgckbclwm (FLEXERIL) tablet 10 mgdiphenhydrAMINE hydrochloride 25 mg oral capsule (2 sources)Histamine-1 Receptor AntagonistStart: 05-27-2022 End: 95-46-1355gyvs 1 capsule by mouth every six hours as neededdiphenhydrAMINE (BENADRYL) capsule 25 mgStart: 05-27-2022 End: 35-63-5511yqeg 25 mg intravenously every six hours as cbwnea61 mg, intravenous, Every 6 hours PRN, itching, Starting on Tue05/27/22 at 21552 ml fentaNYL 0.05 mg/ml injection (1 source)Opioid AgonistStart: 05-27-2022 End: 55-44-9020uoqorMRC (SUBLIMAZE) injection 25 mcg0.5 ml HYDROmorphone hydrochloride 1 mg/ml prefilled syringe (1 source)Opioid AgonistStart: 05-27-2022 End: 37-47-7414GEWYNpjzwitud (DILAUDID) injection 0.5 mgmagnesium hydroxide 80 mg/ml oral suspension (1 source)Start: 05-27-2022 End: 07-72-4266dnxobhcuo hydroxide (MILK OF MAGNESIA) 400 mg/5 mL suspension 30 mLNaloxone (1 source)Opioid AntagonistStart: 05-27-2022 End: 44-25-0499nskmiqyr (NARCAN) injection 0.4 mgoxyCODONE (13 sources)Opioid AgonistStart: 05-27-2022 End: 89-17-3172wwoYHMGDQ (ROXICODONE) immediate release tablet 5 mgStart: 18-39-7059bueQZQGKX (Roxicodone) 5 MG immediate release tablet 05/27/2022 Active Start: 05-27-2022 End: 03-99-0332mvzAGROMN (ROXICODONE) 5 mg immediate release tablet Take 1-2 tablets (5-10 mg total) by mouth every 4 (four) hours if needed for moderate pain or severe pain for up to 7 days. Dx: Z96.6 Max Daily Amount: 60 mg 40 tablet 0 05/27/2022 06/03/2022 ActiveOxygen Therapy, Adult (1 source)Start: 05-27-2022 End: 63-05-7831Afnzov Therapy, Adultpolyvinyl alcohol 0.014 ml/ml ophthalmic solution (14 sources)Start: 05-27-2022 End: drop, Both Eyes, Daily PRN, dry eyes, Starting on Tue05/27/22 at 1445polyvinyl alcohol (Liquifilm Tears) 1.4 % ophthalmic solution Administer 1 drop into both eyes Activepromethazine hydrochloride 25 mg rectal suppository (2 sources)PhenothiazineStart: 05-27-2022 End: 72-44-9932wjbw 1 tablet by mouth every six hours as neededpromethazine (PHENERGAN) tablet 25 mgStart: 05-27-2022 End: 25-89-3794qyqp 25 mg rectal route every six hours as neededpromethazine (PHENERGAN) suppository 25 mgsennosides, half-way 8.6 mg oral tablet (1 source)Start: 05-27-2022 End: 00-52-8903hqnyd (SENOKOT) tablet 8.6 mgSodium Chloride (1 source)Start: 05-27-2022 End: 11-33-6139algvow chloride 0.9 % flush 10 mLtraZODone hydrochloride 50 mg oral tablet (1 source)Serotonin Reuptake InhibitorStart: 05-27-2022 End: 94-28-1436wqtWVQljd (DESYREL) tablet 50 mg Problems Active Problems Problem ClassificationProblemDateDocumented DateEpisodic/ChronicCataract (11 sources)Age-related nuclear cataract of left eye; Translations: [Age-related nuclear cataract, left eye]Onset: 853292-71-2097CzjymzsIqpxmtj kidney disease (7 sources)Chronic kidney disease stage 3; Translations: [Chronic kidney disease, stage 3]Onset: 549283-46-6716BoczngaZhgwkffndmuq of device; implant or graft (20 sources)Mechanical complication of internal joint prosthesis; Translations: [Other mechanical complication of internal left hip prosthesis, initial encounter]Onset: 84-09-4885TgudpxhyAekfskyhh of lipid metabolism (8 sources)Dyslipidemia; Translations: [Hyperlipidemia, unspecified]Onset: 141590-86-2027HhawbzfRrkypgrnn hypertension (11 sources)Essential hypertension; Translations: [Essential (primary) hypertension]Onset: 211992-25-3323MpfstzvXtwxc valve disorders (1 source)Rheumatic disorders of both mitral and tricuspid valves; Translations: [RHEUMATIC D/O MITRAL TRICUSPID VALV]Onset: 36-14-5276IhlsxlsOonprdq and fatigue (5 sources)Weakness; Translations: [Other fatigue]Onset: 61-02-6211Sxfxysuf Menopausal disorders (1 source)Atrophic vaginitis; Translations: [Postmenopausal atrophic vaginitis] 04-74-9904LxgxibgDhdzbep (4 sources)Onychomycosis; Translations: [Tinea unguium]58-67-2459Bxmbwjvl Neoplasms of unspecified nature or uncertain behavior (2 sources)Neoplastic disease; Translations: [Neoplasm of unspecified behavior of bone, soft tissue, and skin]45-77-5222TkioepuyYjuklhlzzhuptl (20 sources)Osteoarthritis of left hip joint; Translations: [Unilateral primary osteoarthritis, left hip]Onset: 04-05-2017 Resolved: 912706-85-2866JmctukaBirbzjshgzsl (1 source)Age-related osteoporosis without current pathological fracture; Translations: [AGE-REL OSTEOPOR W/OCURR PATH FX]Onset: 32-01-8527NfisynnTrear aftercare (7 sources)Patient encounter status; Translations: [Aftercare following joint replacement surgery]Onset: 974217-08-0075RrjialpPvxjg aftercare (14 sources)Aftercare following joint replacement surgeryChronicOther aftercare (14 sources)Encounter for other orthopedic aftercareEpisodicOther aftercare (2 sources)Removal of sutures done; Translations: [Encounter for removal of sutures]10-74-0291RjdlpstcGhqfc connective tissue disease (7 sources)History of total hip arthroplasty; Translations: [Presence of left artificial hip joint]Onset: 253326-79-2670RasnhdhOlytb connective tissue disease (20 sources)Presence of left artificial hip joint; Translations: [PRESENCE LEFT ARTIFICIAL HIP JOINT]Onset: 36-68-0248DjaezbrKmtpb connective tissue disease (20 sources)Trochanteric bursitis, right hipOnset: 55-29-4745KhhskngfIgkbf nervous system disorders (1 source)Unspecified abnormalities of gait and mobility; Translations: [UNS ABNORMALITIES GAIT AND MOBILITY]Onset: 98-53-0088MghtgaggVsfck nervous system disorders (1 source)Other abnormalities of gait and mobility; Translations: [OTHER ABNORMALITIES GAIT AND MOBILITY]Onset: 06-21-9345KvgxnuzzRyzqv nervous system disorders (1 source)Other acute postprocedural pain; Translations: [OTHER ACUTE POSTPROCEDURAL PAIN]Onset: 83-39-3579GcdgasfySvvlz non-epithelial cancer of skin (4 sources)History of squamous cell carcinoma of skin; Translations: [Personal history of other malignant neoplasm of skin]04-07-3421GcksnwnmBkilz non- traumatic joint disorders (14 sources)Loose body in left hipChronicOther nutritional; endocrine; and metabolic disorders (1 source)Localized adiposity; Translations: [Localized adiposity]Onset: 698178-25-1032GfjpneyLwhok screening for suspected conditions (not mental disorders or infectious disease) (5 sources)Abnormal findings on diagnostic imaging of other parts of musculoskeletal system; Translations: [Encounter for screening mammogram for malignant neoplasm of breast]Onset: 77-31-0361VhmuwhbtOerte skin disorders (2 sources)Wrinkled skin; Translations: [Other specified disorders of the skin and subcutaneous tissue]Onset: 17-11-5990LrdjexatXinrh skin disorders (2 sources)Atrophic condition of skin; Translations: [Atrophic disorder of skin, unspecified]Onset: 94-20-1547DotprqwjNqexy skin disorders (4 sources)Seborrheic keratosis; Translations: [Other seborrheic keratosis] 75-42-1812KxbztnunTskup skin disorders (4 sources)Lentiginosis; Translations: [Other melanin hyperpigmentation] 57-71-2371KjxrmetzNqvsf skin disorders (4 sources)Actinic keratosis; Translations: [Actinic keratosis]03-20-2024 EpisodicPulmonary heart disease (1 source)Pulmonary hypertension, unspecified; Translations: [PULMONARY HYPERTENSION UNSPECIFIED]Onset: 73-43-9805NzuzdwyFfepnjbx codes; unclassified (1 source)Pain; Translations: [Pain, unspecified]EpisodicResidual codes; unclassified (1 source)Pain, unspecified; Translations: [Pain, unspecified]Onset: 05-27-2022 EpisodicResidual codes; unclassified (4 sources)Other specified postprocedural states; Translations: [OTH SPECIFIED POSTPROCEDURAL STATES]Onset: 62-94-0300FrtmgwwoUnxrqnp detachments; defects; vascular occlusion; and retinopathy (11 sources)Retinitis pigmentosa; 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] Onset: 010180-07-0927RqyfdiyAghtpvi disorders (4 sources)Hypothyroidism, unspecified; Translations: [HYPOTHYROIDISM UNSPECIFIED]Onset: 59-95-0997KsluatfCwoeslziiysm (1 source)CONTACT W/AND (SUSP) EXPOS COVID-19; Translations: [CONTACT W/AND (SUSP) EXPOS COVID-19]Onset: 60-48-9639Fmgumguizous (1 source)abnormal PAPOnset: 84-01-6370Ewonockndxpn (1 source)ConsultOnset: 51-94-9826Vfusd infection (5 sources)Human papilloma virus infection; Translations: [Papillomavirus as the cause of diseases classified elsewhere]Onset: 817424-23-9249Umfhzalj Past or Other Problems Problem ClassificationProblemDateDocumented DateEpisodic/ChronicCardiac dysrhythmias (4 sources)Palpitations; Translations: [PALPITATIONS]Onset: 18-05-7526Gqbprkhp Deficiency and other anemia (1 source)Anemia, unspecified; Translations: [ANEMIA UNSPECIFIED]Onset: 02-44-7362ZaserwxzXovwrcqt mellitus without complication (1 source)Other abnormal glucose; Translations: [OTHER ABNORMAL GLUCOSE]Onset: 31-86-8617WbzuznhcPspetrfnpni chest pain (1 source)Chest pain, unspecified; Translations: [CHEST PAIN UNSPECIFIED]Onset: 10-92-3196XxabkgrxObzqz aftercare (1 source)Patient encounter status; Translations: [Other shelter (current) drug therapy]Onset: 111655-19-5452XldikhdqUsmgw aftercare (6 sources)Long-term current use of drug therapy; Translations: [Other shelter (current) drug therapy]Onset: 348171-77-7832RiwfdlsmMpfqh connective tissue disease (7 sources)Thigh pain; Translations: [Pain in left thigh]Onset: 01-18-2019 04-61-1696EubbnczwStpom connective tissue disease (6 sources)Iliotibial band friction syndrome of left knee; Translations: [Iliotibial band syndrome, left leg]Onset: 621094-62-1168IxetcgxlVxgfv eye disorders (11 sources)Dry eyes; Translations: [Dry eye syndrome of bilateral lacrimal glands]Onset: 724351-99-7727EvxyaivwEzvgo lower respiratory disease (4 sources)Other forms of dyspnea; Translations: [OTHER FORMS OF DYSPNEA]Onset: 41-09-6499DbvqcoqeGvtwz non-traumatic joint disorders (19 sources)Pain in left hip; Translations: [PAIN IN LEFT HIP]Onset: 05-06-2022 EpisodicOther skin disorders (1 source)Nonscarring hair loss, unspecified; Translations: [NONSCARRING HAIR LOSS UNSPECIFIED]Onset: 41-07-2164BwoennozIryjxwxo codes; unclassified (1 source)Insomnia, unspecified; Translations: [INSOMNIA UNSPECIFIED]Onset: 66-57-3762ZnijrkboCrfnvbm (4 sources)Syncope and collapse; Translations: [SYNCOPE AND COLLAPSE]Onset: 83-59-7625ZvmakkfxTcostzxhgome (1 source)Preprocedural examination iawr87-61-0971 Results Test NameValueInterpretationReference RangeFacilityNo Panel Informationon 04-79-3998Jqheka length (cm): 0.8 Lesion width (cm): 0.7 [...] used: 6.0 ml Estimated blood loss: 1.0 mlNOMS [facility] HospitalComplexity: Intermediate Final length (cm): 4.7 Reason for [...] infection, uncontrollable bleeding, or complications. Dressing type: bandageNROGER M[facility] HealthcareNo Panel InformationOrdered By: Gaye Angulo on 21-94-3478[facility] Panel Informationon 36-53-4232Ryqm of biopsy: tangential Informed consent: discussed and [...] Photo taken Am[facility] of lidoc[facility]: [facility] Informed consent: discussed and [...] Photo taken Amount of lidocaine used: 0.4 [facility]villeS[facility]ology on 57-99-9483Isacsafa PathologyNormalCoshocton Regional Medical CenterComment on above: Result Comment: [facility] [address] [place] [address] Surgical Pathology Consultation Patient Name:BECKY PONCE:1945 (Age: 78)Gender:FTaken:06/11/2024Reported:06/19/2024Physician(s):Sanjuanita Whipple M.D. ([phone])Copy To: Rec. #:[id number]: #[id number] Final Pathologic Diagnosis 1. Cervix, cone biopsy: Negative for atypia/dysplasia; largely denuded cervical stroma. 2. Endocervical curettage and endometrial brushing: Atrophic-appearing squamous epithelium without atypia. No glandular epithelium identified. Report Electronically Signed Out gr/06/19/2024Jerzy Grant MD Interpretation performed at [facility], [address] [place] [address], License number: [id number]. Clinical History Abnormal Pap. 1. Marked at 12 o'clock. Gross Description 1. Received in formalin labeled NAT, cervical cone is an oriented portion of cervical stroma surface by cervical mucosa, 1.1 x 1.1 x 0.7 cm. The mucosal surface is gupta-burroughs smooth glistening witha slitlike os, measuring 0.4 cm in greatest [...] 4 minutes Total fixation time: 27.25 hours (4,ns,Q22-1406-4, m1) TB. 2. Received in formalin labeled [facility], ECC is a Telfa pad and plastic metal brush with gupta delicate soft tissue bits, 0.9 x 0.2 x 0.1 cm in aggregate. The specimens are filtered and submitted in single cassette. (1,ns,[id number], m1) TB tgb/06/12/2024NSK Specimen(s) Received 1: Cervical cone 2: Endocervical curettings and endometrial brushings Fee Codes(s): 1; 20574 2; 30589OHS 12 [place] 11-68-8760HRUNIXFRJVGOFBPqzWtmqtm [facility] HospitalCytologyon 28-70-1031KzkkllkiEzhxzyYdrDsthyi Fremont HospitalComment on above:Result Comment: [facility] [address] [place] [address] Gynecologic Cytology Consultation Patient Name:BECKY PONCE:1945 (Age: 78)Gender:FTaken:4Reported:4Physician(s):Sanjuanita Whipple M.D. ([phone])Copy To: Rec. #:[id number]: #[id number] Final Cytologic Interpretation ThinPrep Pap Test (Cervical): Satisfactory for evaluation. NEGATIVE FOR INTRAEPITHELIAL LESION OR MALIGNANCY. The cytologic changes of atrophy are noted. [facility]/04/11/2024 Interpretation performed at [facility], [address] [place] [address], License number: [id number]. Electronically Signed Out By SAMRA Cueto(ASCP) Date of Last Menstrual Period: (None Given) Other Clinical Conditions: B97.7 HPV infection Source of Specimen ThinPrep Pap Test (Cervical) Thin Prep Pap (TREATING AND PUMPING SUPERVISOR) Fee Code(s): 71330 The Pap test is a screening test with an inherent, but low, probability of error. The Pap test is primarily effective for the diagnosis and prevention of squamous cell carcinoma. Regular screening iscritical for prevention. ThinPrep liquid-based slides, which meet the [employer] Tour [employer] criteria for automated screening, have been screened by the ThinPrep Imaging System (as of 01/16/07) along with an additional manual rescreening by a photo editor and, if indicated, by a pathologist.HIGH RISK HPV W/GENOon 91-68-0446DNV 31+33+35+39+45+51+52+56+58+59+66+68 DNA STEVE+probe Ql (Cvx)HPV SPECIMEN TYPE ThinPrep HPV 16 Negative (qualifier value) HPV 18 Negative (qualifier value) OTHER HIGH RISK HPV Positive (qualifier value) For the DNA of any or combination of the following HPV types: 31,33,35,45, 52,56,58,59,66 and 68.NormalProMedica Glenn Medical CenterComment on above:Performed By: #### 56180-7 #### [facility] ([id number]) [address] [place] [address], [place] [address] [facility] ([id number]) [address] [place] [address], [address] [place], [place] [address]Eyhxspqy Pathologyon 91-28-7334Zrxpocgd PathologyNormalProAdena Health Systemca Glenn Medical CenterComment on above:Result Comment: [facility] [address] [place] [address] Surgical Pathology Consultation Patient Name:BECKY PONCE:1945 (Age: 78)Gender:FTaken:4Reported:04/19/2024hysician(s):Sanjuanita Whipple M.D. ([phone])Copy To: Rec. #:[id number]: #[id number] Final Pathologic Diagnosis 1. Cervix, biopsy @12:00: Low grade squamous intraepithelial lesion. 2. Endocervix, curettage; Low grade squamous intraepithelial lesion. Report Electronically Signed Out gr04/19/2024Jerzy Grant MD Interpretation performed at [facility], [address] [place] [address], License number: [id number]. 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 Abnormal pap with HPV. Gross Description 1. Received in formalin labeled NAT, 12 o'clock is a light gupta soft tissue bit, 0.3 cm. The specimen is filtered and entirely submitted in a single cassette. (1, ns, [id number],m4) DM. 2. Received in formalin labeled NAT, ECC is a wired brush with pale-gupta soft tissue fragments admixed with mucoid material, 0.4 x 0.2 x 0.1 cm in aggregate. The specimen is filtered and entirely submitted in a single cassette. (1, ns, [id number],m4) DM. dm/04/11/2024GR Specimen(s) Received 1: Cervical biopsy 12 o'clock position 2: Endocervical curettings Fee Codes(s): 1; 64654 2; 93087Nf Panel Informationon 90-50-0505IDRY HealthcarePlastic Surgery Visit Reporton 52-32-3896Npzelau Surgery Visit ReportWParsons State Hospital [facility] [address], [address] [place] [address] OFFICE VISIT Date of Service: 10/20/22 MR#: [id number] Acct: [id number] Name: BECKY PONCE Rep #: [id number] : 1945 Provider: Dr. Gertrudis grimaldo MD Age/Sex: 76/F Location: [facility] Status: Signed Intake Vital Signs 10/20/22 13:35 Height 5 ft 4 in Weight: 140 lb 6 oz BMI 24.0 Body Surface Area 1.68 BP 157/75 H Blood Pressure Location Rt brachial Position Sitting Respiration 16 Pulse 85 Pulse Source Monitor Temp 97.4 F L Temp Source Temporal Pulse Oximetry (%) 97 Oxygen Delivery Method room air Intake Visit Reasons: CONSULT-LIPOSUCTION Cash Teller Required: No Accompanied by: None Is patient [...] 10/20/22 [History Confirmed 10/20/22] Post menopausal: Yes [facility] Medical History (Updated 10/20/22 @ 15:08 [...] Date Gertrudis Montero Signature: Date (if applicable) CC:[facility] AUTO DIFFon 67-47-5423RRAZ #0.0 103/ul Normal0.0-0.1The [facility]erry HospitalComment on above:Performed By: #### FT3, TSH, T4 #### [facility] [address] [place] [address] Dr. Abelardo BarrettBasophils/100 WBC (Bld)0.4 %Normal0.2-2.0The [facility] Comment on above:Performed By: #### FT3, TSH, T4 #### [facility] [address] [place] [address] Dr. Abelardo Thomason #0.1 103/ulNormal0.0-0.7The [facility] HospitalComment on above: Performed By: #### FT3, TSH, T4 #### [facility] [address] [place] [address] Dr. Abelardo Morseosinophils/100 WBC (Bld)2.3 %Normal0.9-7.0The [facility] Comment on above:Performed By: #### FT3, TSH, T4 #### [facility] [address] [place] [address] Dr. Abelardo Morserythrocyte distribution width (RBC) [Ratio]13.1 %Ogowuw30.0-15.0 The [facility]erry HospitalComment on above:Performed By: #### FT3, TSH, T4 #### [facility] [address] [place] [address] Dr. Abelardo BarrettHematocrit (Bld) [Volume fraction]23.4 %Critically low36.0-48.0 The [facility] HospitalComment on above:Performed By: #### FT3, TSH, T4 #### [facility] [address] [place] [address] Dr. Abelardo BarrettHemoglobin (Bld) [Mass/Vol]7.7 g/dLCritically low12.0-16.0The [facility] HospitalComment on above:Performed By: #### FT3, TSH, T4 #### [facility] [address] [place] [address] Dr. Abelardo Rodrigez #0.02 10e3/ulNormal0.00-0.03The [facility] HospitalComment on above:Performed By: #### FT3, TSH, T4 #### [facility] [address] [address] [address] Abelardo Rodrigez %0.4 %Normal0.0-0.5The [facility] HospitalComment on above: Performed By: #### FT3, TSH, T4 #### [facility] [address] [address] [address] Abelardo cMkeon #0.9 103/ulCritically low1.2-3.8The [facility] Comment on above:Performed By: #### FT3, TSH, T4 #### [facility] [address] [place] [address] Dr. Abelardo Sharpehocytes/100 WBC (Bld)16.5 %Critically low20.5-60.0The [facility] HospitalComment on above:Performed By: #### FT3, TSH, T4 #### [facility] [address] [place] [address] Dr. Abelardo EstevesUAL DIFF REQNONormalThe [facility]erry HospitalComment on above: Performed By: #### FT3, TSH, T4 #### [facility] [address] [place] [address] Dr. Abelardo Stephen (RBC) [Entitic mass]30.8 lyByiyno47.7-34.0The [facility] HospitalComment on above:Performed By: #### FT3, TSH, T4 #### [facility] [address] [place] [address] Dr. Abelardo Bang (RBC) [Mass/Vol]32.9 g/yDCeplac12.9-35.2The [facility] HospitalComment on above:Performed By: #### FT3, TSH, T4 #### [facility] [address] [place] [address] Dr. Abelardo Bang (RBC) [Entitic vol]93.6 fWMxsjwl88.0-99.0The [facility] HospitalComment on above:Performed By: #### FT3, TSH, T4 #### [facility] [address] [place] [address] Dr. Abelardo Wang #1.0 103/ulCritically high0.3-0.8The [facility] Comment on above:Performed By: #### FT3, TSH, T4 #### [facility] [address] [address] [address] Abelardo Reneeocytes/100 WBC (Bld)17.1 %Critically high1.7-12.0The [facility] HospitalComment on above:Performed By: #### FT3, TSH, T4 #### [facility] [address] [place] [address] Dr. Abelardo Bruno #3.5 103/ulNormal1.4-6.5The [facility] HospitalComment on above:Performed By: #### FT3, TSH, T4 #### [facility] [address] [place] [address] Dr. Abelardo Khanutrophils/100 WBC (Bld)63.3 %Bfxxnj63.0-75.0The [facility] HospitalComment on above:Performed By: #### FT3, TSH, T4 #### [facility] [address] [place] [address] Dr. Abelardo BarrettPlatelet mean volume (Bld) [Entitic vol]8.8 fLCritically low 9.5-13.5The [facility] HospitalComment on above:Performed By: #### FT3, TSH, T4 #### [facility] [address] [place] [address] Dr. Abelardo BarrettPLT255 103/fvOvvnoj237-070Gea [facility] HospitalComment on above: Performed By: #### FT3, TSH, T4 #### [facility] [address] [place] [address] Dr. Abelardo BarrettRBC2.50 106/ulCritically low4.20-5.40The [facility] HospitalComment on above:Performed By: #### FT3, TSH, T4 #### [facility] [address] [place] [address] Dr. Abelardo BarrettWBC5.6 103/ulNormal4.0-11.0The Jamie HospitalComment on above: Performed By: #### FT3, TSH, T4 #### [facility] [address] [address] [address] Abelardo Gomes URINE PROFILEon 79-59-5624Zrqbovmte Ql (U)NegativeNormal NEGATIVEOhio Valley Surgical Hospitalment on above:Performed By: #### FT3, TSH, T4 #### [facility] [address] [address] [address] Abelardo Singharity (U)CLEARNormalCLEARMagruder Hospital on above: Performed By: #### FT3, TSH, T4 #### [facility] [address] [address] [address] Abelardo Laguerre ()LT. YELLOWNormalYELLOWMagruder Hospital on above:Performed By: #### FT3, TSH, T4 #### [facility] [address] [address] [address] Abelardo Mares micrscopic examination will be performed if indicated. NormalMagruder Hospital on above:Performed By: #### FT3, TSH, T4 #### [facility] [address] [address] [address] Abelardo BarrettGlucose Ql (U)NegativeNormalNEGATIVEMagruder Hospital on above:Performed By: #### FT3, TSH, T4 #### [facility] [address] [address] [address] Abelardo BarrettHemoglobin Ql (U)NegativeNormalNEGATIVECleveland Clinic Union Hospital on above:Performed By: #### FT3, TSH, T4 #### [facility] [address] [address] [address] Abelardo BarrettKetones Ql (U)NegativeNormalNEGATIVEMagruder Hospital on above:Performed By: #### FT3, TSH, T4 #### [facility] [address] [address] [address] Abelardo BarrettLEUKOCYTESTRACEAbnormalNEGATIVEMagruder Hospital on above:Performed By: #### FT3, TSH, T4 #### [facility] [address] [address] [address] Abelardo Oliva Ql (U)NegativeNormalNEGATIVEThe [facility]erry HospitalComment on above:Performed By: #### FT3, TSH, T4 #### [facility] [address] [address] [address] Abelardo BarrettpH (U)6.5 [pH]Normal5-9The [facility] HospitalComment on above: Performed By: #### FT3, TSH, T4 #### [facility] [address] [address] [address] Abelardo BarrettSPEC GRAVITY<=1.595Kbpluyyt5.005-<=1.025The [facility] Comment on above:Performed By: #### FT3, TSH, T4 #### [facility] [address] [place] [address] Dr. Abelardo Galdamez PROTEINNegativeNormalNEGATIVE/ TRACEThe [facility] Comment on above:Performed By: #### FT3, TSH, T4 #### [facility] [address] [place] [address] Dr. Abelardo Hooks MICRO INDINDICATEDNormalThe [facility]erry HospitalComment on above: Performed By: #### FT3, TSH, T4 #### [facility] [address] [place] [address] Dr. Abelardo Leabilinogen Qn (U)0.2 {Erik'U}/dLNormal0.2 - 1.0The [facility] HospitalComment on above:Performed By: #### FT3, TSH, T4 #### [facility] [address] [place] [address] Dr. Abelardo Kohler 14(COMP METB)on 56-49-9530Godtiqi [Mass/Vol]2.2 g/dL Critically low3.4-5.0The [facility] HospitalComment on above:Performed By: #### FT3, TSH, T4 #### [facility] [address] [place] [address] Dr. Abelardo BarrettAlbumin/Globulin [Mass ratio]0.6 {ratio}NormalTrihealth Good Samaritan HospitalComment on above:Performed By: #### FT3, TSH, T4 #### [facility] [address] [place] [address] Dr. Abelardo Reynoso [Catalytic activity/Vol]49 U/TMpxvzd24-326Sxy [facility] HospitalComment on above:Performed By: #### FT3, TSH, T4 #### [facility] [address] [place] [address] Dr. Abelardo Vega [Catalytic activity/Vol]36 U/FKllysm92-64Fwj [facility] HospitalComment on above:Performed By: #### FT3, TSH, T4 #### [facility] [address] [place] [address] Dr. Abelardo Jensen gap [Moles/Vol]12.2 mmol/LNormalThe [facility] Comment on above:Performed By: #### FT3, TSH, T4 #### [facility] [address] [place] [address] Dr. Abelardo Rodriguez [Catalytic activity/Vol]43 U/LCritically lhwy63-60Huz [facility] HospitalComment on above:Performed By: #### FT3, TSH, T4 #### [facility] [address] [place] [address] Dr. Abelardo BarrettBilirubin [Mass/Vol]0.7 mg/dLNormal0.2-1.0[facility] Comment on above:Performed By: #### FT3, TSH, T4 #### [facility] [address] [place] [address] Dr. Abelardo BarrettCalcium [Mass/Vol]11.0 mg/dLCritically high8.5-10.1The [facility] HospitalComment on above:Performed By: #### FT3, TSH, T4 #### [facility] [address] [place] [address] Dr. Abelardo BarrettChloride [Moles/Vol]98 mmol/HPsyhca44-491Odn [facility] Comment on above:Performed By: #### FT3, TSH, T4 #### [facility] [address] [address] [address] Abelrado BarrettCO2 [Moles/Vol]31.7 mmol/BRbpjkq14.0-32.0The [facility] Comment on above:Performed By: #### FT3, TSH, T4 #### [facility] [address] [place] [address] Dr. Abelardo BarrettCreatinine [Mass/Vol]1.17 mg/dLCritically high0.55-1.02The [facility] HospitalComment on above:Performed By: #### FT3, TSH, T4 #### [facility] [address] [place] [address] Dr. Zhou ChangEGFR-AF WOYYDJYY27 mL/min/1.19j2Nsqfdgcibn low>=60The [facility] HospitalComment on above:Performed By: #### FT3, TSH, T4 #### [facility] [address] [place] [address] Dr. Abelardo MorseGFR-NON AF HYPSOEXR30 mL/min/1.64z5Ltdrzfdrph low>=60The [facility] HospitalComment on above:Performed By: #### FT3, TSH, T4 #### [facility] [address] [place] [address] Dr. Abelardo BarrettGlobulin (S) [Mass/Vol]3.4 g/dLNormalThe [facility] HospitalComment on above:Performed By: #### FT3, TSH, T4 #### [facility] [address] [place] [address] Dr. Abelardo BarrettGlucose [Mass/Vol]107 mg/dLCritically jbut05-584Pmz [facility] Hospitalment on above:Performed By: #### FT3, TSH, T4 #### [facility] [address] [place] [address] Dr. Abelardo BarrettPotassium [Moles/Vol]4.9 mmol/LNormal3.5-5.1The [facility] Comment on above:Performed By: #### FT3, TSH, T4 #### [facility] [address] [place] [address] Dr. Abelardo BarrettProtein [Mass/Vol]5.6 g/dLCritically low6.4-8.2The [facility] HospitalComment on above:Performed By: #### FT3, TSH, T4 #### [facility] [address] [address] [address] Abelardo Bootheum [Moles/Vol]137 mmol/PWurwfd041-485Qzb [facility] Comment on above:Performed By: #### FT3, TSH, T4 #### [facility] [address] [address] [address] Abelardo Reddy nitrogen [Mass/Vol]27.0 mg/dLCritically high7.0-18.0The [facility] HospitalComment on above:Performed By: #### FT3, TSH, T4 #### [facility] [address] [place] [address] Dr. Abelardo Reddy nitrogen/Creatinine [Mass ratio]23.1 mg/mgNoMercy Health St. Vincent Medical CenterComment on above:Performed By: #### FT3, TSH, T4 #### [facility] [address] [place] [address] Dr. Abelardo Cruz MICROSCOPIC ONLYon 48-84-7658DDZRINJQNNTKYKtnhsmrtLMJK SEEN The [facility] HospitalComment on above:Performed By: #### FT3, TSH, T4 #### [facility] [address] [place] [address] Dr. Abelardo Romo identified Cx Nom (U)NOT INDICATEDNoMercy Health St. Vincent Medical CenterComment on above:Performed By: #### FT3, TSH, T4 #### [facility] [address] [place] [address] Dr. Abelardo Padilla SEENNormalNONE SEENTrihealth Good Samaritan HospitalComment on above:Performed By: #### FT3, TSH, T4 #### [facility] [address] [place] [address] Dr. Abelardo Carrasco LM Nom (Urine sed)NONE SEENNormalNONE SEENTrihealth Good Samaritan HospitalComforest health medical center on above:Performed By: #### FT3, TSH, T4 #### [facility] [address] [place] [address] Dr. Zhou ChangEpithelial cells LM Ql (Urine sed)RARENormalNONE SEEN /RAREThe [facility] HospitalComment on above:Performed By: #### FT3, TSH, T4 #### [facility] [address] [address] [address] Abelardo BarrettMUCOUSNONE SEENNormalNONE SEENTrihealth Good Samaritan HospitalComment on above:Performed By: #### FT3, TSH, T4 #### [facility] [address] [address] [address] Abelardo BarrettPhlsuOHS8-7Quqlsf0-6Vnh [facility]vue HospitalComment on above:Performed By: #### FT3, TSH, T4 #### [facility] [address] [address] [address] Abelardo BarrettWBC0-2AbnormalNONE SEENTrihealth Good Samaritan HospitalComment on above: Performed By: #### FT3, TSH, T4 #### [facility] [address] [address] [address] Abelardo BarrettBactvicente Spec Anaerobe Culton 60-47-3527Ytvzotpi identified Anaer cx Nom (Unsp spec)Culture, Anaerobic Status = F No anaerobes grown after 4 days.NormalVtunt [facility] HospitalComforest health medical center on above: Performed By: #### 1987-08 #### [facility] [address] [place] [address]Rarsevnv identified Anaer cx Nom (Unsp spec)Culture, Anaerobic Status = F No anaerobes grown after 4 days.NormalDunlap Memorial HospitalComforest health medical center on above: Performed By: #### 1987-08 #### [facility] [address] [place], [place] [address]Rpmisesy Tiss Culton 76-38-5088Miayvikw identified Cx Nom (Tiss)Culture, Tissue Status = F No growth at [...] been appended to a previously preliminary verified report.NormalMount [facility] Health Greenville HospitalComment on above: Performed By: #### 1987-5 #### [facility] [address] [place] [address]Xakgoyij identified Cx Nom (Tiss)Culture, Tissue Status = F No growth at [...] been appended to a previously preliminary verified report.NormalMount Corewell Health Greenville HospitalComment on above: Performed By: #### 1987-08 #### [facility] [address] [place] [address]Dqmfu type and Indirect antibody screen panel (Bld)on 63-45-3822VQS group Nom (Bld)ONormalMount [facility] Greenville HospitalComment on above: Performed By: #### 33176-4 #### [facility] [address] [place] [address]Sc TypeNegativeNormalMount [facility] Greenville HospitalComment on above:Performed By: #### 00183-5 #### [facility] [address] [place] [address] 279[address]MBG group Nom (Bld)OTrinity HealthBlood group antibody screen QlNegativeTrinity HealthRh Nom (Bld)NegativeTrinity HealthTrinity Health Fungus Skin Culton 89-92-1562Amyunp identified Cx Nom (Skin)Culture, Fungus Status = F No growth at 4 weeksNormalMount [facility] Greenville HospitalComment on above:Performed By: #### 05625-1 #### [facility] [address] [place] [address]Uhawxj identified Cx Nom (Skin)Culture, Fungus Status = F No growth at 4 weeksNormalMount [facility] on above:Performed By: #### 1987-08 #### [facility] [address] [place] [address]Hiernzg Auto test strip (Bld) [Mass/Vol]on 45-21-4793Fovhudx [Mass/Vol]98 mg/yJKkweux75-77Ktres [facility] HospitalComforest health medical center on above:Performed By: #### 2340-8 #### [facility] [address] [place] [address]Hdgmjmi [Mass/Vol]98 mg/dL70 - 99 mg/dLTrinity Health Interpretation and review of laboratory resultsNormalTrinity HealthTrinity HealthMycobacterium Spec Culton 38-75-0120Mfnzeusizdgov sp identified Org specific cx Nom (Unsp spec)Culture AFB Status = C No growth at 8 weeks AFB Stain Status = F No acid fast bacilli seenNormalMount [facility] HospitalComforest health medical center on above:Performed By: #### 1987-08 #### [facility] [address] [place] [address]Otabvjznumpwc sp identified Org specific cx Nom (Unsp spec) Culture AFB Status = C No growth at 8 weeks AFB Stain Status = F No acid fast bacilli seenNormalMount [facility] on above:Performed By: #### 543-9 #### [facility] [address] [place], [place] [address]Ugktywkru By: #### 1987-08 #### [facility] [address] [place] [address]Dmspkeaoj studyon 71-03-2075Wecbooflp studyLeft hip tissue, biopsy: Fibrous tissue with degenerative changes. No perivascular lymphocytic inflammation is present. A. Hip, Left, R/O perivascular lymphocytic infiltrates: Received in formalin labeled with the patient's name and left hip is a 2 x 2 x 0.5 cm fragment oftan-pink to gupta-yellow fibroadipose tissue. Upon sectioning the cut surface is gupta-pink to gupta-yellow, rubbery and grossly unremarkable. The specimen is submitted entirely in block A1. (AB) Any immunohistochemistry or special stain used in the interpretation of this case was performed at [facility]. These tests have not [...] was performed at [facility], [address] [place] [address]. Microscopic examination was performed. NormalMount Corewell Health Greenville HospitalComment on above:Performed By: #### 85465-6 #### [facility] [address] [place] [address] [facility] [address] [place], [place] [address]WVTT-ZnH-8 (COVID-19) RNA STEVE+probe Ql (Resp)on 05-27-2022 Interpretation and review of laboratory resultsNormalCurahealth Heritage ValleyPnswrrMZPY-LuS-7 (COVID-19) RdRp gene STEVE+probe Ql (Resp)Not detectedNot DetectedHelen Newberry Joy HospitalSARS-CoV-2 RNA Resp Ql STEVE+probeon 43-08-2296ARLN-CoV-2 (COVID-19) RNA STEVE+probe Ql (Resp)Not detectedNormalNot DetectedMount [facility] Comment on above:Performed By: #### 76155-2 #### [facility] [address] [place], [place] [address]DP FLUORO UP TO 1 HOUR (STATISTICS)(NO REPORT)on 05-27-2022 XR FLUORO UP TO 1 HOUR (STATISTICS)(NO REPORT)This order has been auto-finalized and does not contain a result.NormalMount [facility] OXR Fluoro Up To 1 Hour (Statistics)(No Report)on 80-25-1840Adpy order has been auto-finalized and does not contain a result.RIS PACS/VRXR PELVIS 1-2 VIEWSon 79-21-7950PZ PELVIS 1-2 VIEWSEXAMINATION TYPE: XR PELVIS 1-2 VIEWS DATE OF EXAM: 05/27/2022 2:00 PM HISTORY: postoperative care. 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 No postoperative fracture. Tip of theelongated femoral stem in the mid left femoral [...] Transcribed By: Self Edit Transcribed Date: 05/27/2022 14:17NormalMount [facility] OXR Pelvis 1-2 Viewson [id number] acute findings. 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 -------- FINAL REPORT -------- Dictated By: Miguelangel Martinez Dictated Date: 05/27/2022 14:17 Assigned Physician: Miguelangel Martinez Reviewed and Electronically Signed By: Miguelangel Martinez Signed Date: 05/27/2022 14:21 Workstation ID: [id number] Transcribed By: Self Edit Transcribed Date: 05/27/2022 14:17 POWERSCRIBEEXAMINATION TYPE: XR PELVIS 1-2 VIEWS DATE OF EXAM: 05/27/2022 2:00 PM HISTORY: postoperative care. 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 No postoperative fracture. Tip of the elongated femoral stem in the mid left femoral diaphysis. Gas in the periarticular soft tissues from recent surgery. Miguelangel Mcneal MD - 05/27/2022 EXAMINATION TYPE: XR PELVIS 1-2 VIEWS DATE OF EXAM: 05/27/2022 2:00 PM HISTORY: postoperative care. 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 No postoperative fracture. Tip of theelongated femoral stem in the mid left femoral [...] By: Self Edit Transcribed Date: 05/27/2022 14:17 [facility] observation (narrative)[facility] ValleyXR Pelvis 1-2 ViewsOrdered By: Miguelangel Martinez on [id number] [employer] Work Phone: Blood type and Indirect antibody screen panel (Bld)on 52-24-3421OGI group Nom (Bld)ONormalMount [facility] Greenville HospitalComment on above: Performed By: #### 21808-3 #### [facility] [address] [place] [address] [id number] TypeNegativeNormalMount [facility] HospitalComforest health medical center on above:Performed By: #### 43784-8 #### [facility] [address] [place] [address] [id number] [Mass/Vol]on 52-02-8049Wgpeu gap [Moles/Vol]11 mmol/L Normal6-18Mount [facility] HospitalComforest health medical center on above:Order Comment: Sample received unlabeled or with name discrepancy. The Physician, Clinican or authorized designee has authorized the release of the results and assumes responsibility for sample identification.Performed By: #### 1988-5 #### [facility] [address] [place] [address] 81202Dhfbjwq [Mass/Vol]10.9 mg/dLHigh8.9-10.3Mount [facility] HospitalComment on above:Order Comment: Sample received unlabeled or with name discrepancy. The Physician, Clinican or authorized designee has authorized the release of the results and assumes responsibility for sample identification. Performed By: #### 1987-08 #### [facility] [address] [place] [address] [id number] [Moles/Vol]102 mmol/ELvshkw13-802Fcmwu [facility] HospitalComforest health medical center on above:Order Comment: Sample received unlabeled or with name discrepancy. The Physician, Clinican or authorized designee has authorized the release of the results and assumes responsibility for sample identification. Performed By: #### 1987-08 #### [facility] [address] [place] [address] [id number] [Moles/Vol]27 mmol/UGgnqia03-51Qtgrz [facility] Comment on above:Order Comment: Sample received unlabeled or with name discrepancy. The Physician, Clinican or authorized designee has authorized the release of the results and assumes responsibility for sample identification. Performed By: #### 1987-08 #### [facility] [address] [place] [address] [id number] [Mass/Vol]0.92 mg/dLNormal0.60-1.30Mount [facility] HospitalComforest health medical center on above:Order Comment: Sample received unlabeled or with name discrepancy. The Physician, Clinican or authorized designee has authorized the release of the results and assumes responsibility for sample identification. Performed By: #### 1987-08 #### [facility] [address] [place] [address] 89867QOZ/1.73 sq M.predicted among non-blacks MDRD (S/P/Bld) [Vol rate/Area]65 mL/min/{1.73_m2}Normal>=60Mount [facility] HospitalComment on above: Order Comment: Sample received unlabeled or with name discrepancy. The Physician, Clinican or authorized designee has authorized the release of the results and assumes responsibility for sample identification.Result Comment: Effective February 07, 2022, calculation based on the?Chronic Kidney Disease Epidemiology Collaboration (CKD-EPI) equation refit?without adjustment for race. Performed By: #### 1987-08 #### [facility] [address] [place] [address] [id number] [Mass/Vol]86 mg/nNLwolkx23-60Yheah [facility] Comment on above:Order Comment: Sample received unlabeled or with name discrepancy. The Physician, Clinican or authorized designee has authorized the release of the results and assumes responsibility for sample identification. Performed By: #### 1987-08 #### [facility] [address] [place] [address] 14943Stennnhby [Moles/Vol]4.6 mmol/LNormal3.6-5.1Mount [facility] HospitalComment on above:Order Comment: Sample received unlabeled or with name discrepancy. The Physician, Clinican or authorized designee has authorized the release of the results and assumes responsibility for sample identification. Performed By: #### 1987-08 #### [facility] [address] [place] [address] 22988Mhazvk [Moles/Vol]140 mmol/URvdwxq188-977Leckg [facility] HospitalComment on above:Order Comment: Sample received unlabeled or with name discrepancy. The Physician, Clinican or authorized designee has authorized the release of the results and assumes responsibility for sample identification. Performed By: #### 1987-08 #### [facility] [address] [place] [address] 08054Kwyk nitrogen [Mass/Vol]36 mg/dLHigh8-20Mount [facility] HospitalComment on above:Order Comment: Sample received unlabeled or with name discrepancy. The Physician, Clinican or authorized designee has authorized the release of the results and assumes responsibility for sample identification. Performed By: #### 1987-08 #### [facility] [address] [place], [place] [address]Ccwl nitrogen/Creatinine [Mass ratio]39.1 mg/avSzpy03.0-20.0 [facility]Com[facility] on above:Order Comment: Sample received unlabeled or with name discrepancy. The Physician, Clinican or authorized designee has authorized the release of the results and assumes responsibility for sample identification.Performed By: #### 1988-5 #### [facility] [address] [place] [address] [id number] and platelets WO differential panel (Bld)on 13-74-5887Bqv Rate18 mm/hrNormal0-20Mount [facility] HospitalComforest health medical center on above: Performed By: #### 97771-8 #### [facility] [address] [place] [address] 01855QY MAMM SCREEN 3D YONI CADon 52-20-0071SV MAMM SCREEN 3D YONI CADPatient: BECKY PONCE Exam Date: 04/07/2022 : 1945 Gender:F Ordering : DR KERVIN OSORIO Admission #: [id number] Family : DR DORCAS AGUIRRE . Order #: [id number] CLICK HERE TO VIEW EXAM RADIOLOGY REPORT [...] Treatments None Family Cancers None LOCATION: [facility] BREAST COMPOSITION: Heterogeneously dense,which may obscure [...] by: Saranya Nice MD on 04/07/2022 at 11:00NormalThMercy Health [facility] Hospital AUTO DIFFon 56-02-0462GZCG #0.0 103/ulNormal0.0-0.1The [facility] HospitalComment on above:Performed By: #### FT3, TSH, T4 #### [facility] [address] [place] [address] Dr. Abelardo BarrettBasophils/100 WBC (Bld)0.9 %Normal0.2-2.0[facility] Comment on above:Performed By: #### FT3, TSH, T4 #### [facility] [address] [place] [address] Dr. Abelardo Thomason #0.1 103/ulNormal0.0-0.7The [facility] HospitalComment on above: Performed By: #### FT3, TSH, T4 #### [facility] [address] [place] [address] Dr. Abelardo Morseosinophils/100 WBC (Bld)2.0 %Normal0.9-7.0The [facility] Comment on above:Performed By: #### FT3, TSH, T4 #### [facility] [address] [place] [address] Dr. Abelardo Morserythrocyte distribution width (RBC) [Ratio]12.5 %Glrkup87.0-15.0 The [facility] HospitalComment on above:Performed By: #### FT3, TSH, T4 #### [facility] [address] [place] [address] Dr. Abelardo BarrettHematocrit (Bld) [Volume fraction]37.9 %Hoylxs99.0-48.0The [facility] HospitalComment on above:Performed By: #### FT3, TSH, T4 #### [facility] [address] [place] [address] Dr. Abelardo BarrettHemoglobin (Bld) [Mass/Vol]12.6 g/zMTuyyko60.0-16.0The [facility] HospitalComment on above:Performed By: #### FT3, TSH, T4 #### [facility] [address] [place] [address] Dr. Abelardo Rodrigez #0.01 10e3/ulNormal0.00-0.03The [facility] HospitalComment on above:Performed By: #### FT3, TSH, T4 #### [facility] [address] [place] [address] Dr. Abelardo Rodrigez %0.2 %Normal0.0-0.5The [facility] HospitalComment on above: Performed By: #### FT3, TSH, T4 #### [facility] [address] [place] [address] Dr. Abelardo Mckeon #1.2 103/ulNormal1.2-3.8The [facility] HospitalComment on above:Performed By: #### FT3, TSH, T4 #### [facility] [address] [place] [address] Dr. Abelardo Sharpehocytes/100 WBC (Bld)26.5 %Heynky95.5-60.0The [facility] HospitalComment on above:Performed By: #### FT3, TSH, T4 #### [facility] [address] [place] [address] Dr. Abelardo EstevesUAL DIFF REQNONormalThe [facility] HospitalComment on above: Performed By: #### FT3, TSH, T4 #### [facility] [address] [place] [address] Dr. Abelardo Stephen (RBC) [Entitic mass]29.9 yeHtkuih57.7-34.0The [facility] HospitalComment on above:Performed By: #### FT3, TSH, T4 #### [facility] [address] [place] [address] Dr. Abelardo Bang (RBC) [Mass/Vol]33.2 g/lITzwcqs34.9-35.2The [facility] HospitalComment on above:Performed By: #### FT3, TSH, T4 #### [facility] [address] [place] [address] Dr. Abelardo Mcginnis (RBC) [Entitic vol]90.0 oFTvdehg12.0-99.0The [facility] HospitalComment on above:Performed By: #### FT3, TSH, T4 #### [facility] [address] [place] [address] Dr. Abelardo Wang #0.5 103/ulNormal0.3-0.8The [facility] HospitalComment on above:Performed By: #### FT3, TSH, T4 #### [facility] [address] [place] [address] Dr. Abelardo Reneeocytes/100 WBC (Bld)10.1 %Normal1.7-12.0The [facility] Comment on above:Performed By: #### FT3, TSH, T4 #### [facility] [address] [place] [address] Dr. Abelardo Bruno #2.8 103/ulNormal1.4-6.5The [facility] HospitalComment on above:Performed By: #### FT3, TSH, T4 #### [facility] [address] [place] [address] Dr. Abelardo Khanutrophils/100 WBC (Bld)60.3 %Xytkvc16.0-75.0The [facility] HospitalComment on above:Performed By: #### FT3, TSH, T4 #### [facility] [address] [place] [address] Dr. Abelardo Learylet mean volume (Bld) [Entitic vol]8.6 fLCritically low 9.5-13.5The [facility] Hospitalment on above:Performed By: #### FT3, TSH, T4 #### [facility] [address] [place] [address] Dr. Abelardo BarrettPLT248 103/owJwtsma646-827Kxp [facility] HospitalComment on above: Performed By: #### FT3, TSH, T4 #### [facility] [address] [place] [address] Dr. Abelardo BarrettRBC4.21 106/ulNormal4.20-5.40The [facility] HospitalComment on above:Performed By: #### FT3, TSH, T4 #### [facility] [address] [place] [address] Dr. Abelardo BarrettWBC4.6 103/ulNormal4.0-11.0The [facility] HospitalComment on above: Performed By: #### FT3, TSH, T4 #### [facility] [address] [place] [address] Dr. Abelardo BarrettFRTATY THYROXINE INDEX T7on 87-72-3338GUX2.23Yqvvbw8.30-4.50The [facility] HospitalComment on above:Performed By: #### CMP, LIPID #### [facility] [address] [place] [address] Dr. Abelardo BarrettT3U35.0 %Meatzv05.0-39.0The [facility] HospitalComment on above: Performed By: #### CMP, LIPID #### [facility] [address] [place] [address] Dr. Abelardo BarrettT4 [Mass/Vol]7.80 ug/dLNormal4.80-13.90The [facility] Comment on above:Performed By: #### CMP, LIPID #### [facility] [address] [place] [address] Dr. Abelardo BarrettGLYCOHEMOGLOBIN A1Con 72-86-3392RIA RECOMMENDATIONSEE BELOWNormal [facility] HospitalComment on above:Result Comment: ADA RECOMMENDED LIMIT 4.0 - 6.0 ADA THERAPEUTIC TARGET < 7.0 ACTION SUGGESTED > 7.0Performed By: #### CMP, LIPID #### [facility] [address] [place] [address] Dr. Abelardo BarrettGlucose [Mass/Vol]123 mg/dLNoalThFairfield Medical CenterComment on above:Performed By: #### CMP, LIPID #### [facility] [address] [place] [address] Dr. Abelardo BarrettHbA1c (Bld) [Mass fraction]5.9 %Normal4.5-6.2The [facility] HospitalComment on above:Performed By: #### CMP, LIPID #### [facility] [address] [address] [address] Abelardo Silva [id number] [Mass/Vol]94.0 ug/bEXabmdn27.0-170.0[facility] HospitalComment on above:Performed By: #### CMP, LIPID #### [facility] [address] [address] [address] Abelardo SoloID PROFILEon [id number]-HDL RATIO NORMSEE [facility] HospitalCom[facility] medical center on above:Result Comment: 3.3 - 4.4 LOW RISK 4.4 - 7.1 AVERAGE RISK 7.1 - 11.0 MODERATE RISK >11.0 HIGH RISKPerformed By: #### CMP, LIPID #### [facility] [address] [place] [address] Dr. Abelardo Limaesterol [Mass/Vol]186 mg/dLNormal<=200The [facility] Comment on above:Performed By: #### CMP, LIPID #### [facility] [address] [address] [address] Abelardo BarrettCholesterol in HDL [Mass/Vol]86 mg/dLCritically crsg89-91WbaMagruder Hospital on above:Performed By: #### CMP, LIPID #### [facility] [address] [address] [address] Abelardo BarrettCholesterol in LDL [Mass/Vol]88.8 mg/dLMetroHealth Main Campus Medical CenterComforest health medical center on above:Performed By: #### CMP, LIPID #### [facility] [address] [address] [address] Abelardo Limaesterwicho.total/Cholesterol in HDL [Mass ratio]2.2 {ratio} NormalMagruder Hospital on above:Performed By: #### CMP, LIPID #### [facility] [address] [address] [address] Abelardo BarrettHDL NORMAL> or = 60 mg/dl - LOW CARDIOVASCULAR RISK <40 mg/dl - HIGH CARDIOVASCULAR RISKMetroHealth Main Campus Medical CenterComment on above:Performed By: #### CMP, LIPID #### [facility] [address] [address] [address] Abelardo Willoughby CALC NORMALSEE BELOWMetroHealth Main Campus Medical CenterComment on above:Result Comment: <100 mg/dl OPTIMAL 100 - 129 mg/dl NEAR OR ABOVE OPTIMAL 130 - 159 mg/dl BORDERLINE HIGH 160 - 189 mg/dl HIGH >190 mg/dl VERY HIGH Performed By: #### CMP, LIPID #### [facility] [address] [address] [address] Abelardo BarrettTriglyceride [Mass/Vol]56 mg/dLNormal<=150The [facility] Comment on above:Performed By: #### CMP, LIPID #### [facility] [address] [place] [address] Dr. Abelardo BarrettVLDL CALC11.2 mg/dLNoMercy Health St. Vincent Medical CenterComment on above: Performed By: #### CMP, LIPID #### [facility] [address] [place] [address] Dr. Abelardo BarrettPROF 14(COMP METB)on 30-15-6672Ieipfqe [Mass/Vol]3.7 g/dLNormal 3.4-5.0[facility] on above:Performed By: #### CMP, LIPID #### [facility] [address] [place] [address] Dr. Abelardo BarrettAlbumin/Globulin [Mass ratio]1.0 {ratio}NormalThe [facility] HospitalComforest health medical center on above:Performed By: #### CMP, LIPID #### [facility] [address] [place] [address] Dr. Abelardo Reynoso [Catalytic activity/Vol]59 U/OKhqwrb47-609Lea [facility] on above:Performed By: #### CMP, LIPID #### [facility] [address] [place] [address] Dr. Abelardo Vega [Catalytic activity/Vol]30 U/PBzgegj70-72Ego [facility] on above:Performed By: #### CMP, LIPID #### [facility] [address] [address] [address] Abelardo Olivaon gap [Moles/Vol]9.0 mmol/LNormalThe [facility] HospitalComment on above:Performed By: #### CMP, LIPID #### [facility] [address] [address] [address] Abelardo BarrettAST [Catalytic activity/Vol]17 U/CKmsrmk37-71Aah [facility] HospitalComment on above:Performed By: #### CMP, LIPID #### [facility] [address] [address] [address] Abelardo BarrettBilirubin [Mass/Vol]0.6 mg/dLNormal0.2-1.0The [facility] Comment on above:Performed By: #### CMP, LIPID #### [facility] [address] [address] [address] Abelardo BarrettCalcium [Mass/Vol]9.1 mg/dLNormal8.5-10.1The [facility] Comment on above:Performed By: #### CMP, LIPID #### [facility] [address] [address] [address] Abelardo BarrettChloride [Moles/Vol]104 mmol/AAcgjxt90-739Uqt [facility] Comment on above:Performed By: #### CMP, LIPID #### [facility] [address] [address] [address] Abelardo BarrettCO2 [Moles/Vol]30.6 mmol/AQwloog78.0-32.0The [facility] Comment on above:Performed By: #### CMP, LIPID #### [facility] [address] [address] [address] Abelardo BarrettCreatinine [Mass/Vol]0.85 mg/dLNormal0.55-1.02The [facility] HospitalComment on above:Performed By: #### CMP, LIPID #### [facility] [address] [address] [address] Abelardo MorseGFR-AF AUSTRALIAN>60Normal>=60The [facility] HospitalComment on above:Performed By: #### CMP, LIPID #### [facility] [address] [address] [address] Abelardo MorseGFR-NON AF AUSTRALIAN>60Normal>=60The [facility] HospitalComment on above:Performed By: #### CMP, LIPID #### [facility] [address] [address] [address] Abelardo BarrettGlobulin (S) [Mass/Vol]3.6 g/dLNormalThe [facility] HospitalComment on above:Performed By: #### CMP, LIPID #### [facility] [address] [address] [address] Abelardo BarrettGlucose [Mass/Vol]93 mg/sNVcisll94-376Nhh [facility] Comment on above:Performed By: #### CMP, LIPID #### [facility] [address] [address] [address] Abelardo BarrettPotassium [Moles/Vol]4.6 mmol/LNormal3.5-5.1The [facility] Comment on above:Performed By: #### CMP, LIPID #### [facility] [address] [address] [address] Abelardo BarrettProtein [Mass/Vol]7.3 g/dLNormal6.4-8.2[facility] Comment on above:Performed By: #### CMP, LIPID #### [facility] [address] [address] [address] Abelardo BarrettSodium [Moles/Vol]139 mmol/VBjrtqk783-657Kpd [facility] Comment on above:Performed By: #### CMP, LIPID #### [facility] [address] [address] [address] Abelardo BarrettUrea nitrogen [Mass/Vol]33.0 mg/dLCritically high7.0-18.0The [facility] HospitalComment on above:Performed By: #### CMP, LIPID #### [facility] [address] [address] [address] Abelardo BarrettUrea nitrogen/Creatinine [Mass ratio]38.8 mg/mgNormalThe [facility] HospitalComment on above:Performed By: #### CMP, LIPID #### [facility] [address] [place] [address] Dr. Abelardo Varma 95-46-2943RJV Qnm[IU]/LCritically low0.358-3.740The [facility] HospitalComforest health medical center on above:Performed By: #### CMP, LIPID #### [facility] [address] [place] [address] Dr. Abelardo Jimenez4 LABCORPon [id number] [Mass/Vol]8.3 ug/dLNormal4.5-12.0The [facility] HospitalComment on above:Performed By: #### CMP, LIPID #### [facility] [address] [place] [address] Dr. Abelardo Petit T3on 61-94-0133OFKY T33.34 pg/mlLNormal2.18-3.98The [facility] HospitalComforest [facility] medical center on above:Performed By: #### CMP, LIPID #### [facility] [address] [place] [address] Dr. Abelardo Varma 09-00-1086YQN Qnm[IU]/LCritically low0.358-3.740The [facility] HospitalComment on above:Performed By: #### CMP, LIPID #### [facility] [address] [place] [address] Dr. Abelardo Perez [facility]rium Medical CenterComment on above:Performed By: #### ABG #### [facility] [address] [place] [address] Dr. Abelardo Fox TESTPosWexner Medical CenterComment on above: Performed By: #### ABG #### [facility] [address] [place] [address] Dr. Abelardo Nolasco excess Calc (Bld) [Moles/Vol]0.7 mmol/LNormal-2.0-2.0The [facility] HospitalComment on above:Performed By: #### ABG #### [facility] [address] [address] [address] Abelardo Mayfield [facility] HospitalComment on above: Performed By: #### ABG #### [facility] [address] [address] [address] Abelardo BarrettCO2 [Moles/Vol]51.6 mmol/LCritically high23.0-28.0The [facility] HospitalComforest [facility] medical center on above:Performed By: #### ABG #### [facility] [address] [address] [address] Abelardo BarrettCPProMedica Toledo HospitalComforest health medical center on above:Performed By: #### ABG #### [facility] [address] [place] [address] Dr. Abelardo BarrettRumlsVKM9AhxgnnNlv63 Hammond StreetComforest health medical center on above:Performed By: #### ABG #### [facility] [address] [place] [address] Dr. Abelardo BarrettHCO3 (Bld) [Moles/Vol]25.0 mmol/TClaxtk30.0-26.0The [facility] HospitalComforest [facility] medical center on above:Performed By: #### ABG #### [facility] [address] [place] [address] Dr. Abelardo BarrettLPMNormalThe [facility] on above:Performed By: #### ABG #### [facility] [address] [place] [address] Dr. Abelardo RmUTE [facility] HospitalCom[facility] on above: Performed By: #### ABG #### [facility] [address] [place] [address] Dr. Abelardo BarrettOxygen (Bld) [Partial pressure]83.4 mm[Hg]Gwmfjc75.0-100.0The [facility] HospitalComforest health medical center on above:Performed By: #### ABG #### [facility] [address] [place] [address] Dr. Abelardo BarrettOxygen saturation in Blood97.1 %Dudhtf63.0-100.0The [facility] HospitalComforest health medical center on above:Performed By: #### ABG #### [facility] [address] [address] [address] Abelardo BarrettPCO239.3 vjBbBiffcc96.0-45.0[facility] on above:Performed By: #### ABG #### [facility] [address] [address] [address] Abelardo BarrettParkview Health Bryan Hospital on above:Performed By: #### ABG #### [facility] [address] [address] [address] Abelardo Thomas (Bld)7.415 [pH]Normal7.350-7.450The [facility] on above:Performed By: #### ABG #### [facility] [address] [place] [address] Dr. Abelardo XieCommunity Memorial Hospital on above:Performed By: #### ABG #### [facility] [address] [address] [facility]. [facility] on above:Performed By: #### ABG #### [facility] [address] [address] [address] Abelardo IbarraSCCI Hospital Lima on above: Performed By: #### ABG #### [facility] [address] [place] [address] Dr. Abelardo BallesterosCommunity Memorial Hospital on above:Performed By: #### ABG #### [facility] [address] [place] [address] Dr. Abelardo BarrettPomerene Hospital on above:Performed By: #### ABG #### [facility] [address] [address] [address] Abelardo BarrettWooster Community Hospital on above:Performed By: #### ABG #### [facility] [address] [address] [address] Abelardo BarrettCardiovascular Lab Reporton [id number] Lab Report [facility] Patient Name: [facility] MR #: [id number] Physician: Jian Dean, Department of M.D. Medicine Service Date: 11/19/2021 Division of Birthdate: 1945 Cardiology Room #: [facility] Cardiovascular Services [facility] [address] [facility]. [place] [address] Cardiovascular Laboratory Report FINAL IMPRESSIONS: 1. Angiographically nonobstructive coronary arteries. 2. Normal global left ventricular systolic function by noninvasive imaging. RECOMMENDATIONS: 1. Consider alternate etiologies for the patient's shortness of breath, mainly pulmonary; pulmonary function tests have been ordered. 2. Aggressive cardiovascular risk factor modification. 3. Follow up with Dr. Dean in the next 3-4 weeks in the [place] office. 4. Follow up with Dr. Aguirre [...] She was to be transferred to the [facility] area in stable condition. FINDINGS: Hemodynamics. [...] Dean M.D. Date Trans: 11/19/2021 02:08 P/mmo DN_JN:[id number] cc: Dorcas Aguirre M.D. [address] [place] [facility] [id number] County Memorial HospitalCovid-19 PCR (CVDTB)on [id number]-CoV-2 (COVID-19) RNA STEVE+probe Ql (Unsp spec)Not detectedNormalNOT DETECTEDThe [facility] HospitalComment on above:Result Comment: This test is not yet approved or cleared by the [place] FDA. When there are no FDA-approved or cleared tests available, and other criteria are met, FDA can make tests available under an emergency access mechanism called an Emergency Use Authorization (EUA). The EUA for this test is supported by the Director Systems of Health and Human Service's (HHS's) declaration [...] of clinical signs and symptoms consistent with SARS-CoV-2.Performed By: #### FT3, TSH, T4 #### [facility] [address] [place] [address] Dr. Abelardo Silva AUTO DIFFon [id number] #0.0 103/ulNormal0.0-0.1The [facility] HospitalComment on above:Performed By: #### FT3, TSH, T4 #### [facility] [address] [place] [address] Dr. Abelardo BarrettBasophils/100 WBC (Bld)0.8 %Normal0.2-2.0The [facility] Comment on above:Performed By: #### FT3, TSH, T4 #### [facility] [address] [place] [address] Dr. Abelardo MorseO #0.1 103/ulNormal0.0-0.7The [facility] HospitalComment on above: Performed By: #### FT3, TSH, T4 #### [facility] [address] [place] [address] Dr. Abelardo Morseosinophils/100 WBC (Bld)2.1 %Normal0.9-7.0The [facility] Comment on above:Performed By: #### FT3, TSH, T4 #### [facility] [address] [place] [address] Dr. Abelardo Morserythrocyte distribution width (RBC) [Ratio]12.0 %Nrjqoi33.0-15.0 The [facility] HospitalComment on above:Performed By: #### FT3, TSH, T4 #### [facility] [address] [place] [address] Dr. Abelardo BarrettHematocrit (Bld) [Volume fraction]36.2 %Oowtkt78.0-48.0The [facility] HospitalComment on above:Performed By: #### FT3, TSH, T4 #### [facility] [address] [place] [address] Dr. Abelardo BarrettHemoglobin (Bld) [Mass/Vol]11.6 g/dLCritically low12.0-16.0The [facility] HospitalComment on above:Performed By: #### FT3, TSH, T4 #### [facility] [address] [address] [address] Abelardo Rodrigez #0.01 10e3/ulNormal0.00-0.03The [facility] HospitalComment on above:Performed By: #### FT3, TSH, T4 #### [facility] [address] [address] [address] Abelardo Rodrigez %0.2 %Normal0.0-0.5The [facility] HospitalComment on above: Performed By: #### FT3, TSH, T4 #### [facility] [address] [place] [address] Dr. Abelardo Mckeon #0.8 103/ulCritically low1.2-3.8The [facility] Comment on above:Performed By: #### FT3, TSH, T4 #### [facility] [address] [place] [address] Dr. Abelardo Sharpehocytes/100 WBC (Bld)15.8 %Critically low20.5-60.0The [facility] HospitalComment on above:Performed By: #### FT3, TSH, T4 #### [facility] [address] [place] [address] Dr. Abelardo EstevesUAL DIFF REQNONormalThe [facility] HospitalComment on above: Performed By: #### FT3, TSH, T4 #### [facility] [address] [place] [address] Dr. Abelardo Bang (RBC) [Entitic mass]30.2 iiFwlolr64.7-34.0The [facility] HospitalComment on above:Performed By: #### FT3, TSH, T4 #### [facility] [address] [place] [address] Dr. Abelardo Bang (RBC) [Mass/Vol]32.0 g/rYNbqrhn22.9-35.2The [facility] HospitalComment on above:Performed By: #### FT3, TSH, T4 #### [facility] [address] [place] [address] Dr. Abelardo Bang (RBC) [Entitic vol]94.3 pJLochkm53.0-99.0The [facility] HospitalComment on above:Performed By: #### FT3, TSH, T4 #### [facility] [address] [place] [address] Dr. Abelardo Wang #0.4 103/ulNormal0.3-0.8The [facility] HospitalComment on above:Performed By: #### FT3, TSH, T4 #### [facility] [address] [place] [address] Dr. Abelardo Reneeocytes/100 WBC (Bld)8.3 %Normal1.7-12.0The [facility] Comment on above:Performed By: #### FT3, TSH, T4 #### [facility] [address] [place] [address] Dr. Abelardo Bruno #3.8 103/ulNormal1.4-6.5The [facility] HospitalComment on above:Performed By: #### FT3, TSH, T4 #### [facility] [address] [place] [address] Dr. Abelardo Khanutrophils/100 WBC (Bld)72.8 %Uijtvk98.0-75.0The [facility] HospitalComment on above:Performed By: #### FT3, TSH, T4 #### [facility] [address] [place] [address] Dr. Abelardo Holbrook mean volume (Bld) [Entitic vol]8.6 fLCritically low 9.5-13.5The [facility]ment on above:Performed By: #### FT3, TSH, T4 #### [facility] [address] [place] [address] Dr. Abelardo BarrettPLT244 103/igQliqgj554-299Qir [facility] HospitalComment on above: Performed By: #### FT3, TSH, T4 #### [facility] [address] [place] [address] Dr. Abelardo BarrettRBC3.84 106/ulCritically low4.20-5.40The [facility]ment on above:Performed By: #### FT3, TSH, T4 #### [facility] [address] [place] [address] Dr. Abelardo BarrettWBC5.2 103/ulNormal4.0-11.0The [facility] HospitalComment on above: Performed By: #### FT3, TSH, T4 #### [facility] [address] [place] [address] Dr. Abelardo BarrettPROF CHEM 8 (BAS METB)on 76-58-2358Ycfvg gap [Moles/Vol]12.0 mmol/LNormalThe [facility] HospitalComment on above:Performed By: #### BMP, HSTROPN #### [facility] [address] [place] [address] Dr. Abelardo BarrettCalcium [Mass/Vol]9.2 mg/dLNormal8.5-10.1The [facility] Comment on above:Performed By: #### BMP, HSTROPN #### [facility] [address] [place] [address] Dr. Abelardo BarrettChloride [Moles/Vol]101 mmol/VSexaui97-197Dxh [facility] Comment on above:Performed By: #### BMP, HSTROPN #### [facility] [address] [place] [address] Dr. Abelardo BarrettCO2 [Moles/Vol]26.3 mmol/MOdwfoq47.0-32.0The [facility] Comment on above:Performed By: #### BMP, HSTROPN #### [facility] [address] [place] [address] Dr. Abelardo BarrettCreatinine [Mass/Vol]0.90 mg/dLNormal0.55-1.02The [facility] HospitalComment on above:Performed By: #### BMP, HSTROPN #### [facility] [address] [place] [address] Dr. Abelardo MorseGFR-AF AUSTRALIAN>60Normal>=60The [facility] HospitalComment on above:Performed By: #### BMP, HSTROPN #### [facility] [address] [place] [address] Dr. Abelardo MorseGFR-NON AF AUSTRALIAN>60Normal>=60The [facility] on above:Performed By: #### BMP, HSTROPN #### [facility] [address] [address] [address] Abelardo BarrettGlucose [Mass/Vol]101 mg/pNCbnuxk68-623Uzd [facility] Comment on above:Performed By: #### BMP, HSTROPN #### [facility] [address] [address] [address] Abelardo BarrettPotassium [Moles/Vol]4.3 mmol/LNormal3.5-5.1The [facility] Comment on above:Performed By: #### BMP, HSTROPN #### [facility] [address] [place] [address] Dr. Abelardo BarrettSodium [Moles/Vol]135 mmol/LCritically boj693-252Atb [facility] HospitalComment on above:Performed By: #### BMP, HSTROPN #### [facility] [address] [address] [address] Abelardo BarrettUrea nitrogen [Mass/Vol]34.0 mg/dLCritically high7.0-18.0The [facility] HospitalComment on above:Performed By: #### BMP, HSTROPN #### [facility] [address] [place] [address] Dr. Abelardo BarrettUrea nitrogen/Creatinine [Mass ratio]37.8 mg/mgNormalThe [facility] HospitalComment on above:Performed By: #### BMP, HSTROPN #### [facility] [address] [place] [address] Dr. Abelardo Tatum, HIGH SENSITIVITYon 97-06-1049YCRRRR3.8 pg/mLNormal 4.0-51.3The [facility] on above:Result Comment: CUT-OFF POINTS HAVE BEEN ESTABLISHED BASED ON THE FOURTH UNIVERSAL DEFINITIONS OF MYOCARDIAL INFARCTION. THE UPPER REFERENCE LIMIT (URL) OF TROPONIN, DEFINED THE 99TH PERCENTILE OF cTnI DISTRIBUTION IN A REFERENCE POPULATION, HAS BEEN CONFIRMED THE DECISION THRESHOLD FOR DC DIAGNOSIS.Performed By: #### CMP, LIPID #### [facility] [address] [address] [address] Abelardo BarrettHSTROP5.8 pg/mLNormal4.0-51.3The [facility] HospitalComment on above:Result Comment: CUT-OFF POINTS HAVE BEEN ESTABLISHED BASED ON THE FOURTH UNIVERSAL DEFINITIONS OF MYOCARDIAL INFARCTION. THE UPPER REFERENCE LIMIT (URL) OF TROPONIN, DEFINED THE 99TH PERCENTILE OF cTnI DISTRIBUTION IN A REFERENCE POPULATION, HAS BEEN CONFIRMED THE DECISION THRESHOLD FOR DC DIAGNOSIS.Performed By: #### BMP, HSTROPN #### [facility] [address] [address] [address] Abelardo BarrettXR CHEST 1 Von [id number] CHEST 1 VFRONTAL CHEST; 11/14/2021 11:40 AM EDT Clinical History:Syncope Comparison: None available . AP portable upright film. Cardiac leads. Osseous structures are grossly intact. Cardiac and mediastinal silhouettes are unremarkable. The bharathi are symmetric. No infiltrate or effusion. No failure. Granuloma left base. Lungs are well expanded. IMPRESSION: 1. No evidence of acute process. Electronically authenticated by: LETICIA HOYT Date: 2021-11-14 12:45NormalThMercy Health Perrysburg Hospital AUTO DIFFon [id number] #0.1 103/ulNormal0.0-0.1[facility] HospitalComment on above:Performed By: #### CBC #### [facility] [address] [id number] Abelardo BarrettBasophils/100 WBC (Bld)1.1 %Normal0.2-2.0[facility] Comment on above:Performed By: #### CBC #### [facility] [address] Abelardo Thomason #0.2 103/ulNormal0.0-0.7The [facility] HospitalComment on above: Performed By: #### CBC #### [facility] [id number] [address] Abelardo Morseosinophils/100 WBC (Bld)3.9 %Normal0.9-7.0The [facility] Comment on above:Performed By: #### CBC #### [facility] [address] [place] [address] Dr. Abelardo Morserythrocyte distribution width (RBC) [Ratio]12.1 %Jwvnqk91.0-15.0 [facility] HospitalComment on above:Performed By: #### CBC #### [facility] [address] [place] [address] Dr. Abelardo BarrettHematocrit (Bld) [Volume fraction]33.6 %Critically low36.0-48.0 [facility] HospitalComment on above:Performed By: #### CBC #### [facility] [address] [place] [address] Dr. Abelardo BarrettHemoglobin (Bld) [Mass/Vol]11.1 g/dLCritically low12.0-16.0The [facility] HospitalComment on above:Performed By: #### CBC #### [facility] [address] [place] [address] Dr. Abelardo Rodrigez #0.01 10e3/ulNormal0.00-0.03The [facility] HospitalComment on above:Performed By: #### CBC #### [facility] [address] [place] [address] Dr. Abelardo Rodrigez %0.2 %Normal0.0-0.5The [facility] HospitalComment on above: Performed By: #### CBC #### [facility] [address] [place] [address] Dr. Abelardo Mckeon #1.3 103/ulNormal1.2-3.8The [facility] HospitalComment on above:Performed By: #### CBC #### [facility] [address] [place] [address] Dr. Abelardo Sharpehocytes/100 WBC (Bld)28.5 %Hzmhje33.5-60.0[facility] HospitalComment on above:Performed By: #### CBC #### [facility] [address] [place] [address] Dr. Yilan ChangMANUAL DIFF REQNONormalThe [facility] HospitalComment on above: Performed By: #### CBC #### [facility] [address] [place] [address] Dr. Abelardo Bang (RBC) [Entitic mass]30.8 exNgtgzy14.7-34.0The [facility] HospitalComment on above:Performed By: #### CBC #### [facility] [address] [place] [address] Dr. Abelardo Bang (RBC) [Mass/Vol]33.0 g/kTJbbrut26.9-35.2The [facility] HospitalComment on above:Performed By: #### CBC #### [facility] [address] [place] [address] Dr. Abelardo Bang (RBC) [Entitic vol]93.3 bZHtzact17.0-99.0The [facility] HospitalComment on above:Performed By: #### CBC #### [facility] [address] [place] [address] Dr. Abelardo Wang #0.5 103/ulNormal0.3-0.8The [facility] HospitalComment on above:Performed By: #### CBC #### [facility] [address] [place] [address] Dr. Abelardo Reneeocytes/100 WBC (Bld)11.1 %Normal1.7-12.0The [facility] Comment on above:Performed By: #### CBC #### [facility] [address] [place] [address] Dr. Abelardo Bruno #2.5 103/ulNormal1.4-6.5The [facility] HospitalComment on above:Performed By: #### CBC #### [facility] [address] [place] [address] Dr. Abelardo Khanutrophils/100 WBC (Bld)55.2 %Oimsbm84.0-75.0The [facility] HospitalComment on above:Performed By: #### CBC #### [facility] [address] [place] [address] Dr. Abelardo Holbrook mean volume (Bld) [Entitic vol]9.1 fLCritically low 9.5-13.5The [facility] HospitalComment on above:Performed By: #### CBC #### [facility] [address] [place] [address] Dr. Abelardo BarrettPLT241 103/thIybpnn395-331Diu [facility] HospitalComment on above: Performed By: #### CBC #### [facility] [address] [place] [address] Dr. Abelardo BarrettRBC3.60 106/ulCritically low4.20-5.40The [facility] HospitalComment on above:Performed By: #### CBC #### [facility] [address] [place] [address] Dr. Abelardo BarrettWBC4.6 103/ulNormal4.0-11.0The [facility] HospitalComment on above: Performed By: #### CBC #### [facility] [address] [place] [address] Dr. Zhou ChangECHOCARDIO M/2D COMPLETEon [id number] M/2D COMPLETE Patient: BECKY PONCE Exam Date: 10/27/2021 : 1945 Gender:F Ordering : DR DORCAS AGUIRRE . Admission #: [id number] Family : Order #: [id number] CLICK HERE TO VIEW EXAM ECHOCARDIOGRAM REPORT [...] Area(A4C): 17.20 cm2 Left Atrium Systolic Volume(A2C): 24321 mm3 Left Atrium Systolic Volume(A4C): 65382 mm3 Mitral Valve MV E to A Ratio: 0.80 Deceleration [place]: 2480 mm/s2 Mitral Valve A-Wave Peak Velocity: [...] by: Kristian Mayberry M.D. on 10/27/2021 at 19:38NoMercy Health St. Vincent Medical CenterFREE T3on 24-96-2813CVZW T34.10 pg/mlLCritically high2.18-3.98The [facility] HospitalComment on above:Performed By: #### FT3, TSH, T4 #### [facility] [address] [place] [address] Dr. Abelardo BarrettGLYCOHEMOGLOBIN A1Con 26-54-1104YGF RECOMMENDATIONSEE BELOWNormal The [facility] HospitalComment on above:Result Comment: ADA RECOMMENDED LIMIT 4.0 - 6.0 ADA THERAPEUTIC TARGET < 7.0 ACTION SUGGESTED > 7.0Performed By: #### FT3, TSH, T4 #### [facility] [address] [address] [address] Abelardo BarrettGlucose [Mass/Vol]123 mg/dLNoMercy Health St. Vincent Medical CenterComforest health medical center on above:Performed By: #### FT3, TSH, T4 #### [facility] [address] [address] [address] Abelardo BarrettHbA1c (Bld) [Mass fraction]5.9 %Normal4.5-6.2The [facility] HospitalComment on above:Performed By: #### FT3, TSH, T4 #### [facility] [address] [address] [address] Abelardo Silva [id number] [Mass/Vol]63.0 ug/xCVwpskc17.0-170.0The [facility] on above:Performed By: #### CMP, LIPID #### [facility] [address] [place] [address] Dr. Abelardo BarrettLIPID PROFILEon [id number]-HDL RATIO NORMSCherrington HospitalComment on above:Result Comment: 3.3 - 4.4 LOW RISK 4.4 - 7.1 AVERAGE RISK 7.1 - 11.0 MODERATE RISK >11.0 HIGH RISKPerformed By: #### CMP, LIPID #### [facility] [address] [place] [address] Dr. Abelardo BarrettCholesterol [Mass/Vol]163 mg/dLNormal<=200[facility] Comment on above:Performed By: #### CMP, LIPID #### [facility] [address] [place] [address] Dr. Abelardo BarrettCholesterol in HDL [Mass/Vol]74 mg/dLCritically noco74-34AqmTrihealth Good Samaritan HospitalComment on above:Performed By: #### CMP, LIPID #### [facility] [address] [place] [address] Dr. Abelardo BarrettCholesterol in LDL [Mass/Vol]79.2 mg/dLMetroHealth Main Campus Medical CenterComment on above:Performed By: #### CMP, LIPID #### [facility] [address] [place] [address] Dr. Abelardo Limaesterwicho.total/Cholesterol in HDL [Mass ratio]2.2 {ratio} NormalTrihealth Good Samaritan HospitalComment on above:Performed By: #### CMP, LIPID #### [facility] [address] [place] [address] Dr. Abelardo Garcia NORMAL> or = 60 mg/dl - LOW CARDIOVASCULAR RISK <40 mg/dl - HIGH CARDIOVASCULAR RISKMetroHealth Main Campus Medical CenterComment on above:Performed By: #### CMP, LIPID #### [facility] [address] [place] [address] Dr. Abelardo BarrettLDL CALC NORMALSEE [facility] Defiance HospitalComment on above:Result Comment: <100 mg/dl OPTIMAL 100 - 129 mg/dl NEAR OR ABOVE OPTIMAL 130 - 159 mg/dl BORDERLINE HIGH 160 - 189 mg/dl HIGH >190 mg/dl VERY HIGH Performed By: #### CMP, LIPID #### [facility] [address] [place], [place] [address] Dr. Abelardo BarrettTriglyceride [Mass/Vol]49 mg/dLNormal<=150[facility] Comment on above:Performed By: #### CMP, LIPID #### [facility] [address] [place], [place] [address] Dr. Abelardo BarrettVLDL CALC9.8 mg/dLNormalThFairfield Medical CenterComment on above: Performed By: #### CMP, LIPID #### [facility] [address] [place], [place] [address] Dr. Abelardo BarrettNM STRESS/REST MULTIon [id number] STRESS/REST MULTIPatient: BECKY PONCE Exam Date: 10/27/2021 : 1945 Gender:F Ordering : DR DORCAS AUGIRRE . Admission #: [id number] Family : Order #: [id number] CLICK HERE TO VIEW EXAM RADIOLOGY REPORT [...] anteroseptal. Basal inferoseptal. Mid-anteroseptal. Mid-inferoseptal. Apical septal. [place]. SIZE: Large (5 or more segments). SEVERITY: Moderate. TYPE: Mixed. WALL MOTION: Normal. Basal inferoseptal. Mid-anterior. Mid-anteroseptal. [place]. LV SIZE: Normal. 63 mL. TID / [...] by: Saranya Nice MD on 10/27/2021 at 12:10[facility] Campus Medical CenterPROF 14(COMP METB)on 17-63-8839Hdhqmbl [Mass/Vol]3.2 g/dLCritically low3.4-5.0The [facility] HospitalComment on above:Performed By: #### CMP, LIPID #### [facility] [address] [place] [address] Dr. Abelardo BarrettAlbumin/Globulin [Mass ratio]0.9 {ratio}NormalThe [facility] HospitalComment on above:Performed By: #### CMP, LIPID #### [facility] [address] [place] [address] Dr. Abelardo Reynoso [Catalytic activity/Vol]50 U/CTpixtd20-434Kzv [facility] HospitalComment on above:Performed By: #### CMP, LIPID #### [facility] [address] [place] [address] Dr. Abelardo Vega [Catalytic activity/Vol]38 U/AYqhrbu21-57Awf [facility] HospitalComment on above:Performed By: #### CMP, LIPID #### [facility] [address] [place] [address] Dr. Abelardo Jensen gap [Moles/Vol]13.4 mmol/LNormalThe [facility] Comment on above:Performed By: #### CMP, LIPID #### [facility] [address] [place] [address] Dr. Abelardo Rodriguez [Catalytic activity/Vol]27 U/ZSqrcxa76-90Msj [facility] HospitalComment on above:Performed By: #### CMP, LIPID #### [facility] [address] [place], [place] [id number] Dr. Abelardo BarrettBilirubin [Mass/Vol]0.4 mg/dLNormal0.2-1.0The [facility] Comment on above:Performed By: #### CMP, LIPID #### [facility] [address] [place] [address] Dr. Abelardo BarrettCalcium [Mass/Vol]8.6 mg/dLNormal8.5-10.1The [facility] Comment on above:Performed By: #### CMP, LIPID #### [facility] [address] [address] [address] Abelardo BarrettChloride [Moles/Vol]107 mmol/KAxsxjt02-789Gxz [facility] Comment on above:Performed By: #### CMP, LIPID #### [facility] [address] [place] [address] Dr. Abelardo BarrettCO2 [Moles/Vol]24.7 mmol/VVbbabo25.0-32.0The [facility] Comment on above:Performed By: #### CMP, LIPID #### [facility] [address] [place] [address] Dr. Abelardo BarrettCreatinine [Mass/Vol]0.75 mg/dLNormal0.55-1.02The [facility] HospitalComment on above:Performed By: #### CMP, LIPID #### [facility] [address] [place] [address] Dr. Abelardo MorseGFR-AF AUSTRALIAN>60Normal>=60The [facility] HospitalComment on above:Performed By: #### CMP, LIPID #### [facility] [address] [place] [address] Dr. Abelardo MorseGFR-NON AF AUSTRALIAN>60Normal>=60The [facility] HospitalComment on above:Performed By: #### CMP, LIPID #### [facility] [address] [place] [address] Dr. Abelardo BarrettGlobulin (S) [Mass/Vol]3.4 g/dLNormalThe [facility] HospitalComment on above:Performed By: #### CMP, LIPID #### [facility] [address] [address] [address] Abelardo BarrettGlucose [Mass/Vol]92 mg/rFBcffdg30-537Dvc [facility] Comment on above:Performed By: #### CMP, LIPID #### [facility] [address] [address] [address] Abelardo BarrettPotassium [Moles/Vol]4.1 mmol/LNormal3.5-5.1The [facility] Comment on above:Performed By: #### CMP, LIPID #### [facility] [address] [place] [address] Dr. Abelardo BarrettProtein [Mass/Vol]6.6 g/dLNormal6.4-8.2The [facility] Comment on above:Performed By: #### CMP, LIPID #### [facility] [address] [place] [address] Dr. Abelardo BarrettSodium [Moles/Vol]141 mmol/SXnyxnc450-122Mga [facility] Comment on above:Performed By: #### CMP, LIPID #### [facility] [address] [place] [address] Dr. Abelardo BarrettUrea nitrogen [Mass/Vol]29.0 mg/dLCritically high7.0-18.0[facility] HospitalComment on above:Performed By: #### CMP, LIPID #### [facility] [address] [place] [address] Dr. Abelardo Reddy nitrogen/Creatinine [Mass ratio]38.7 mg/mgNormalThe [facility] HospitalComment on above:Performed By: #### CMP, LIPID #### [facility] [address] [place] [address] Dr. Abelardo BarrettT4on 29-37-3790B4 [Mass/Vol]9.40 ug/dLNormal4.80-13.90[facility] HospitalComment on above:Performed By: #### FT3, TSH, T4 #### [facility] [address] [place] [address] Dr. Abelardo LondonHote 35-93-3506ZHP Qnm[IU]/LCritically low0.358-3.740The [facility] on above:Performed By: #### FT3, TSH, T4 #### [facility] [address] [place] [address] Dr. Abelardo Roblero LABCORPon 08-44-1258S7 [Mass/Vol]9.4 ug/dLNormal4.5-12.0The [facility] on above:Performed By: #### T4LC #### [facility] [address] [place] [address] Dr. Abelardo Petit T3on 85-12-5055GGOO T34.05 pg/mlLCritically high2.18-3.98The [facility] on above:Performed By: #### FT3, TSH, T4 #### [facility] [address] [place] [address] Dr. Abelardo Varma 84-48-6401AFO Qnm[IU]/LCritically low0.358-3.740The [facility] on above:Performed By: #### FT3, TSH, T4 #### [facility] [address] [place] [address] Dr. Abelardo [facility] on above: Result Comment: <0.34 UIU/ml HYPERTHYROID 0.34-5.60 UIU/ml EUTHYROID >5.60 UIU/ml HYPOTHYROIDPerformed By: #### FT3, TSH, T4 #### [facility] [address] [place] [address] Dr. Abelardo Petit T3on 28-14-3324DYSW T31.73 pg/mlLCritically low2.77-5.27The [facility] on above:Performed By: #### CMP, LIPID #### [facility] [address] [place] [address] Dr. Abelardo Jimenez4on 13-20-1195U5 [Mass/Vol]4.40 ug/dLCritically low5.53-11.00The [facility] HospitalComment on above:Performed By: #### CMP, LIPID #### [facility] [address] [address] [address] Abelardo Varma 25-89-2870FIQ8.349 uIU/mLCritically low0.470-4.680[facility] HospitalComment on above:Performed By: #### CMP, LIPID #### [facility] [address] [address] [address] Abelardo [facility]bleComment on above: Result Comment: <0.34 UIU/ml HYPERTHYROID 0.34-5.60 UIU/ml EUTHYROID >5.60 UIU/ml HYPOTHYROIDPerformed By: #### CMP, LIPID #### [facility] [address] [place] [address] Dr. Abelardo Ramirez Colonoscopyon 90-19-5885Gfrlcgs Colonoscopy [id number]#1.00CD:[address] [place], [place] [address]RAD - MISCon 21-43-0028SEV - MISC [id number]#1.00CD:[address] [place], [place] [address]Lab Reportson 95-38-9961Lya Reports [id number]#1.00CD:[address] [place], [place] [address]Provider Letter FTMCon 02-66-2955Wchrculn Letter [facility] Dorcas Aguirre, [address] [facility] [place] [address] [place] [address] Re: BECKY PONCE Date of : 1945 Thank you for your referral of Becky Ponce who was seen on consultation on April 30, 2020, for positive occult stool. A colonoscopy is planned for further evaluation. I have enclosed my consultation notes for your review. I will be happy to follow Becky should her symptoms persist. Sincerely, Ajith Padilla MD General SurgeryNoGalion HospitalConsent for Procedure/Surgeryon 69-45-3796Arlgxin for Procedure/Surgery [id number]#1.00CD:[address] [place], [place] [address]Facesheeton 60-78-6344Pmfhalpbu [id number]#1.00CD:[address] [place], [place] [address]Ambulatory Clinical Summaryon 42-11-7846Afshjssqox Clinical Summary {04-43-03-g6-fm-5f-59-cr-l2-0a-5y-06-bf-b4-95-30}CD:517206ApzonsRsmajlRegency Hospital CompanyAmbulatory Clinical Summary {n0-39-aw-84-fn-z8-22-61-yk-4q-54-28-06-e8-7e-1c}CD:017828SzdqxzKwyfniRegency Hospital CompanyPhysician Referralon 35-45-1865Iolxcbsks Referral [id number]#1.00CD:[address] [place] [address] Vital Signs Date TimeVital SignValuePerforming AsjvcomhmNzgoytpp80-21-9986 10:03-0400Body utyuoe53.15 kgDacolt Butcher MDOrthoAlliance of Vqhc89-66-7814 09:05-0400Body agpujs53.06 kgDacolt Butcher MDOrthoAlliance of Rmxp09-40-2702 08:43-0500Body ymswyc693.6 Morenita Whipple MD Work Phone: [facility]02-24-2025 08:43-0500Body mass index (BMI) [Ratio]24.55 kg/t2TsdmxSanjuanita Whipple MD Work Phone: [facility]02-24-2025 08:43-0500Body arzznb01.86 kgSanjuanita Whipple MD Work Phone: [facility]02-24-2025 08:43-0500Diastolic blood wuvvyssa40 mm[Hg]Sanjuanita Whipple MD Work Phone: [facility]02-24-2025 08:43-0500Systolic blood juksrpfq573 mm[Hg]Sanjuanita Whipple MD Work Phone: [facility]01-20-2025 10:20-0500Body .[address]01-20-2025 10:20-0500Body mass index (BMI) [Ratio]24.55 kg/m2Pm[address]01-20-2025 10:20-0500Body .[address]12-10-2024 11:24-0500Diastolic blood crixhfsk53 mm[Hg]Sanjuanita Whipple MD Work Phone: [facility]12-10-2024 11:24-0500Systolic blood mlpxlbxe085 mm[Hg]Sanjuanita Whipple MD Work Phone: [facility]11-26-2024 11:01-0500Body .6 Morenita Whipple MD Work Phone: [facility]11-26-2024 11:01-0500Body mass index (BMI) [Ratio]25.46 kg/g2YckthSanjuanita Whipple MD Work Phone: [facility]11-26-2024 11:01-0500Body wyhxqa38.27 kgSanjuanita Whipple MD Work Phone: [facility]11-26-2024 11:01-0500Diastolic blood mm[Hg]Sanjuanita Whipple MD Work Phone: [facility]11-26-2024 11:01-0500Systolic blood yxiordzs968 mm[Hg]Sanjuanita Whipple MD Work Phone: [facility]01-26-2023 16:10-0500Body fwpfcikpwks80.4 [degF]Saranya Butcher MD Work Phone: [facility] ValleyKwkimd84-40-1499 16:10-0500Diastolic blood woyopaqj48 mm[Hg]Saranya Butcher MD Work Phone: [facility] ValleyRmfxju56-74-1289 16:10-0500Heart rate81 /min Saranya Butcher MD Work Phone: [facility] ValleyLvnwsa88-09-4230 16:10-5731HvF1% (BldA) [Mass fraction]99 %Saranya Butcher MD Work Phone: [facility] ValleyGogjsy65-68-9907 16:10-0500Systolic blood bwaaydyp463 mm[Hg]Saranya Butcher MD Work Phone: [facility] ValleyUmsfpo53-36-7223 14:30-0500Respiratory rate15 /minDavid Herminio DINERO Work Phone: [facility] ValleyJaiivj22-90-3668 09:16-0400Body qmiiap303.6 cm Gertrudis Encarnacion MD Work Phone: 1(600)[address] [place], [place] 7056303-30-2022 09:16-0400Body mass index (BMI) [Ratio]23.34 kg/f0ZmgzocGertrudis Encarnacion MD Work Phone: 1(500)[address] [place], [place] 7056303-30-2022 09:16-0400Body xzvmaurnrda55.59 [degF]Gertrudis Encarnacion MD Work Phone: 1(866)[address] [place], [place] 7056303-30-2022 09:16-0400Body weight 61.69 kgGertrudis Encarnacion MD Work Phone: 1(069)[address] [place], [place] 7056303-30-2022 09:16-0400Diastolic blood efpyeejj62 mm[Hg]Gertrudis Encarnacion MD Work Phone: 1(687)[address] [place], [place] 7056[address]-30-2022 09:16-0400Heart rate91 /minGertrudis Encarnacion MD Work Phone: 1(582)[address] [place], [place] 7056[address]-30-2022 09:16-0400Systolic blood haefzpnf195 mm[Hg]Gertrudis Encarnacion MD Work Phone: 1(765)[address] [place] [address] Encounters Encounter DateEncounter TypeCare ProviderFacilityStart: 02-08-2025 End: 98-96-0075Fhxiqfkkq identifierDavid Chavez Butcher Work Phone: jis [facility] SystemanyStart: 98-26-7546ipzgawllneZgfrm [facility]avez [facility] OrthopedicsStart: 61-06-4428zhiobyaqzaNxpisg D DackinMAGALIS OrthopedicsStart: 12-28-2024 End: 57-95-6950Twldxiqab identifierDavid Chavez Butcher Work Phone: jis [facility] SystemanyStart: 26-46-3932asxmtwffqqAnqvt [facility]avez [facility] OrthopedicsStart: 32-76-5968bqqpepgnosDgmviz D DackinJIS OrthopedicsStart: 54-71-0567afcwbmglicSqdkn Chavez HerminioMAGALIS Orthopedics Start: 35-06-4728kyxyzaelosKgddt Chavez ButcherMAGALIS OrthopedicsStart: 11-21-2024 End: 75-05-7549Gqgjls flowsEmilio Mustafa MD Work Phone: noms [facility] DERMStart: 11-21-2024 End: 83-53-0478Dtbdgl flowsEmilio Mustafa MD Work Phone: [facility]oms [facility] DERMStart: 11-21-2024 End: 40-00-3344Zeczpy follow up visit related to original pxEloisa Mustafa MD Work Phone: noms [facility] DERMComment on above:Encounter for removal of sutures (Primary Dx)Start: 11-21-2024 End: 46-06-0833sdwfqtomczCRLSE A PETITTINot AvailableStart: 11-07-2024 End: 62-96-7686Upxaviu encounter procedureEloisa Mustafa MD Work Phone: noms [facility] DERMComment on above:Basal cell carcinoma (BCC) of skin of other part of torso (Primary Dx)Start: 11-07-2024 End: 75-34-6943ciungeirepGYJNW A PETITTINot AvailableStart: 09-19-2024 End: 44-39-1202Eeyabl flowsheetNatalie A Felter RESIDENTIAL PROGRAM COORDINATOR-ASSISTANT HOUSEKEEPING MANAGER Work Phone: noms [facility] DERMStart: 09-19-2024 End: 53-57-0486Svrpzc flowsheetNatalie Tresa Johnsoner RESIDENTIAL PROGRAM COORDINATOR-ASSISTANT HOUSEKEEPING MANAGER Work Phone: noms [facility] DERMStart: 09-19-2024 End: 15-92-6566Dlrtsf outpatient visit 25 minutesNatalie Tresa Saba RESIDENTIAL PROGRAM COORDINATOR-ASSISTANT HOUSEKEEPING MANAGER Work Phone: noms [facility] DERMComment on above:Seborrheic keratosis (Primary Dx); Lentigines; Actinic keratosis; History of SCC (squamous cell carcinoma) of skin; Neoplasm of unspecified behavior of bone, soft tissue, and skinStart: 09-19-2024 End: 55-56-5020rrzzhklffxUXOAFTG A FELTERNot AvailableStart: 09-07-2024 End: 99-77-3650Tfsjzg outpatient visit 15 minutesDavid Chavez Butcher Work Phone: jiSaint [facility]'S Regional Health CenteranyStart: 10-64-5327ejjmxsqgdrDbjmv [facility]avez [facility] OrthopedicsStart: 19-84-9430yobnmwxggwUdflr Chavez [facility] OrthopedicsStart: 06-29-2024 End: 97-68-9980Tbwyzuupk encounterSanjuanita Whipple MD Work Phone: [facility]etric[facility]/GynecologyStart: 06-25-2024 End: 39-62-0304Qjezzs outpatient visit 15 minutesSanjuanita Whipple MD Work Phone: [facility] Obstetrics/GynecologyComment on above:HPV in female (Primary Dx)Start: 06-25-2024 End: 02-42-6168utxlbpgqouAXWHZKarlo Licona [facility] PPGStart: 06-11-2024 End: 58-73-9244Igyaxkjfgn and management of inpatientDAVID Cm RAMIREZLakeHealth [facility] HospitalStart: 06-11-2024 End: 39-26-0092Aefdarlhan and management of inpatientCORIAyaan VERMADetwiler Memorial Hospitaltart: 05-21-2024 End: 93-72-9783Xnnbdcc encounter procedurePm Pre-Admission Testing [address] [place] [address] - Pre AdmitComment on above:Preop examination (Primary Dx); Hypertension, unspecified typeStart: 05-21-2024 End: 78-33-4433Woqaouskrcnvu examination donePm[address] Streettart: 05-21-2024 End: 98-21-9524idqfcmshovMKPBU Cm [facility] Hospitaltart: 74-85-3132Gjdmuqraf for other preprocedural examinationDABogdan [facility] Generaltart: 05-07-2024 End: 07-75-5987Hxrjrvxlp encounterCocharlene Whipple MD Work Phone: [facility]etrics/GynecologyStart: 04-30-2024 End: 07-44-7019guzsxlsazdMMIVPGarnet Health Ambulatory PPGStart: 04-10-2024 End: 85-57-2695wwcrwjnpraHVTXXSt. 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)Start: 03-27-2024 End: 99-30-6968ocaiagtpzsUSHTKValley Medical Center Ambulatory PPGStart: 03-20-2024 End: 02-38-5855Cjfdtx flowsheetNatalie Tresa Saba APRN-ASSISTANT HOUSEKEEPING MANAGER Work Phone: [facility] DERMStart: 03-20-2024 End: 97-34-3619Ljagyj flowsheetNatalie A Felter RESIDENTIAL PROGRAM COORDINATOR-ASSISTANT HOUSEKEEPING MANAGER Work Phone: noms SWS DERMStart: 03-20-2024 End: 41-77-2117Ifbqdk outpatient visit 25 minutesNatalie A Chelseyer RESIDENTIAL PROGRAM COORDINATOR-ASSISTANT HOUSEKEEPING MANAGER Work Phone: noms SWS DERMComment on above:Seborrheic keratosis (Primary Dx); Onychomycosis; Lentigines; Actinic keratosisStart: 03-20-2024 End: 06-42-5011wevzpicsckVWNNMCS A CHELSEYERNot AvailableStart: 09-09-2023 End: 98-11-7871Yrwubh outpatient visit 10 minutesDacolt Butcher Work Phone: jis [facility] AlbanyStart: 10-20-2022 End: 13-15-6115krnswvykcpQgmonm GhazoulFacility:BMSStart: 07-05-2022 End: 87-60-4266Jcuddhgwt identifierDacolt Butcher Work Phone: jis [facility] AlbanyStart: 06-15-2022 End: 54-83-1813maktlchzopEE DOCTOR MISCFacility:F7Oyofs: 06-02-2022 End: 57-71-3188Pyzbhwfyu identifierDacolt Butcher Work Phone: jis [facility] SystemanyStart: 06-01-2022 End: 91-66-5509hwsklhoscnFJ NIKUNJ RODRIGUEZECKFacility:L6Iparb: 05-27-2022 End: 90-75-9873Qxdxzdfkol and management of inpatientDAVID Vicenta Pineda MariettaStart: 05-27-2022 End: 38-30-8087Icmiagzvn identifierJethro Rosales Work Phone: [facility] [place] NASHStart: 05-27-2022 End: 57-67-0608Aofpdfbojt and management of inpatientDavid Herminio DINERO Work Phone: [facility] Carter Round OComment on above:Other mechanical complication of internal left hip prosthesis, initial encounter ([facility])Start: 05-27-2022 End: 73-04-1155Zelocesdcv and management of inpatientMississippi [facility] Center C-Arm [address] [place], [place] [address]Start: 05-27-2022 End: 71-59-6745Cwfxwgpwhp hospital visit by physicianNa [address] [place], [place] [address]Comment on above:PainStart: 05-17-2022 End: 43-34-5168Wnndqkfri identifierJacofranklyn Guerreroameena Work Phone: jis Therapy MariettaStart: 05-06-2022 End: 27-33-1091Bgxmhozac identifierDavibogdan Butcher Work Phone: jis Mariettaart: 05-06-2022 End: 08-06-2161Vatogh outpatient visit 25 minutesMicestefani De La Torre Work Phone: jis MariettaStart: 04-07-2022 End: 23-84-8867oihytfvqceXD SARANYA V WESTFacility:R1Zzily: 03-30-2022 End: 67-92-2596kltdodphihHJ DORCAS HOY .Facility:M6Shcor: 01-15-2022 End: 11-46-5340vloytbetnuZU DORCAS HOY .Facility:E8Fiuzq: 12-14-2021 End: 66-43-7606nmriqyvvajMW EHAB ELTAHAWYFacility:E0Mvkkv: 11-19-2021 End: 78-55-7651odepznzzszUOLDMTP HOYFacility:UTMCStart: 97-19-7955Jxvgumlhq for preprocedural laboratory examinationMELMONICA Mckeon [facility] Hospitaltart: 11-17-2021 End: 20-66-6028vvzlpcndsvTYLPLWS TUCKERFacility:Q8Yfbnv: 11-17-2021 End: 47-21-9292Ozrdhorsu for preprocedural laboratory examinationMELMONICA MELTON Facility:L0Fbhwi: 11-14-2021 End: 70-30-4320ysmojcjyktCNPIMXF D KATKOFacility:V4Xzipl: 11-03-2021 End: 59-86-8066voxzbmwqygJSGTGNU HOYFacility:UTMCStart: 10-29-2021 End: 87-75-2479lypucaafzuTA DORCAS HOY .Facility:B2Hfrvl: 10-27-2021 End: 29-26-5221crzhaxixmhXZ DORCAS HOY .Facility:R3Vlajm: 09-30-2021 End: 47-96-6306uknmthfqrnJD DORCAS HOY .Facility:E2Owryp: 08-14-2021 End: 49-60-9117iforjnbdgaMO DORCAS HOY .Facility:U3Etqpq: 07-29-2021 End: 93-59-6158Eslewcw encounter procedureTertim Encarnacion MD Work Phone: [facility] Plastic SurgeryComment on above: Rhytides (Primary Dx); Atrophic skin Procedures DateProcedureProcedure DetailPerforming ClinicianStart: 12-28-2024 End: 21-37-8562Cmretlzenxlihh aspir&/inj major jt/bursa w/o Halle Butcher MD Start: 12-28-2024 End: 23-03-0393Bwluozadpsfgr acet inj NOSDacolt Butcher MDStart: 17-42-6222FXRA EXCISIONEmsukh Mustafa MD Work Phone: Start: 70-66-8446JZHE REPAIREmsukh Mustafa MD Work Phone: Start: 09-19-2024 End: 11-96-0053ZQRD / NAIL BIOPSYNatalie A Wandy RESIDENTIAL PROGRAM COORDINATOR-ASSISTANT HOUSEKEEPING MANAGER Work Phone: Start: 09-07-2024 End: 93-23-8376Wgrii hips bilateral with pelvis 3-4 viewsSaranya Butcher MDStart: 15-26-8758Bewrpf-up visitFollow-upCORIE L BEVVACHStart: 58-72-6300Vvxhfbtesi ColposcopyCORIE L KOVACHStart: 09-81-3803PCJSUSHCDKP SKIN LESIONNatalie A Felter RESIDENTIAL PROGRAM COORDINATOR-ASSISTANT HOUSEKEEPING MANAGER Work Phone: Start: 09-09-2023 End: 82-15-0319Uhzgp hip unilateral with pelvis 2-3 viewsDacolt Butcher MDStart: 58-87-0663Tadkyyu fngi mold/yeast prsmptv oth xcpt bloodSaranya Butcher MD Work Phone: start: 71-48-7425Kbqoydvbli examination pelvis 1/2 viewsTaylor Bogdan SNIDER Work Phone: start: 05-27-2022 End: 95-44-2395Trdxsoudfjmc Compression Device - SELF PAYDacolt Butcher MDStart: 05-27-2022 End: 19-18-9272IO Revision Of Total Hip Joint SurgeryDacolt Butcher MDStart: 05-27-2022 End: 75-92-1715Qmvz tot hip arthrp fem only w/wo algrftDacolt Butcher MDStart: 76-16-0195VL FLUORO UP TO 1 HOUR (STATISTICS)(NO REPORT)Saranya Butcher MD Work Phone: start: 79-42-3646Ypopmlj fngi mold/yeast prsmptv oth xcpt bloodSaranya Butcher MD Work Phone: start: 34-95-5129Sxojqfwd screenDACOLT BUTCHERComment on above:Performed By: #### [id number] #### [facility] [address] [place], [place] [address]Shcut: 89-20-2161LIGD GLUCOSE BLOODDacolt Butcher MD Work Phone: start: 03-45-4918Ezwv-cov-2 detection by dna/rnaDacolt Butcher MD Work Phone: start: 03-26-2862Yhapfnvw screen rbc each serum techniqueSaranya Butcher MD Work Phone: start: 31-79-3502Oogiaeyc screenDACOLT BUTCHERComment on above:Performed By: #### [id number] #### [facility] [address] [place], [place] [address]Woink: 05-17-2022 End: 87-91-6405Akxgyqyc therapy evaluation low complex 20 Jermaine Butcher MD Start: 05-17-2022 End: 36-32-1511Jhfjgnyio actvity direct pt contact each 15 Flores Butcher MD Plan of Treatment DateCare ActivityDetailAuthorStart: 18-85-7967Mhxxdoz ScreeningTobacco Screening [facility] SystemStart: 76-81-6993Qinytje ScreeningTobacco Screening [facility] SystemStart: 70-13-5230Ssruwod ScreeningTobacco Screening [facility]tart: 19-40-3354Bzukazk ScreeningTobacco Screening [facility] SystemStart: 67-78-3310Zpdwusl ScreeningTobacco Screening [facility] Hospitaltart: 04-02-2025 End: 83-72-2984Srdrmzb encounter tyshnnqyx36/02/2025 9:10 AM EST Office Visit [facility] [address] [place] [address] Melissa Saba APRN-ASSISTANT HOUSEKEEPING MANAGER [address] [place] [address] [facility] DERMStart: 63-18-1169Qqmtwdjth vaccinationNOMS HealthcareStart: 11-21-2024 End: 83-94-3847Nrlwwnn encounter procedureNOMS SWS DERMComment on above:Arrived Start: 09-19-2024 End: 02-17-8636Jcuelaw encounter procedureNOMS SWS DERMComment on above:Arrived Start: 06-11-2024 End: 29-79-6049Qaqjhzsjm to same day surgery kwyayq6106/11/2024 2:30 PM EST - 06/11/2024 3:30 PM EST Surgery [facility] - Surgery [address] [place] [address] Sanjuanita Whipple MD [address] [place] [address] LEEP CERVIX [46044 (CPT )][facility] HospitalComment on above:LEEP CERVIX [19463 (CPT )]Start: 06-11-2024 End: 98-89-3565Lvpzwrjvwq cervix vag loop eltrd bx cervixLEEP CERVIX abnormal PAP 06/11/2024 2:30 PM ESTFREMONT SURGERYStart: 34-58-3040Eubszjrtns hospital visit by unzpzqidr17/10/2025 2:30 PM EST Hospital Encounter [facility] - Surgery [address] [place] [id number] Sanjuanita Whipple MD [address] [place] [address] [facility] SurgeryStart: 05-21-2024 End: 32-09-6516Pcktv metabolic 2000 panel - Serum or PlasmaBasic Metabolic Panel Lab Routine Preop examination Hypertension, unspecified type Expected: 025, Expires: 05/14/2025[facility] Work Phone: Comment on above:Expected: 05/21/2024, Expires: 05/14/2025Start: 05-21-2024 End: 12-96-4679Gdwrfrf encounter pkmzqukrr09/20/2025 10:30 AM EST Procedure visit [facility] - Pre Admit [address] [place] [id number] [phone] [facility] - Pre AdmitStart: 04-30-2024 End: 40-07-9142Rwiqwna encounter caiwmaikq76/30/2024 8:45 AM EST Office Visit [facility] [address] [place] [phone] Sanjuanita Whipple MD [address] [place] [address] [facility]/GynecologyStart: 04-10-2024 End: 38-68-2057Okbhaoz encounter itfbekcjc63/10/2024 11:30 AM EST Procedure visit [facility] [address] [place] [id number] Sanjuanita Whipple MD [address] [place] [address] [facility]etric[facility]/GynecologyStart: 03-20-2024 End: 48-68-1096Cwfkmwy encounter bncghowrk48/19/2024 9:50 AM EST Office Visit [facility] [address] [place] [id number] Melissa Saba APRN-CNP [address] [place] [address] ArrivedNOPOMONA VALLEY [facility] DERMComment on above: ArrivedStart: 28-34-9768NGLKB-19 Vaccine ( season)COVID-19 Vaccine ( season)[facility] SystemStart: 70-19-8031Egvcqdkwy vaccination [facility] HealthcareStart: 02-79-9551Xjbmv Risk AssessmentFalls Risk Assessment [place] HealthStart: 93-75-2233Jxymhsbrtkpc/CHF/CAD Annual BMP Blood Test Hypertension/CHF/CAD Annual BMP Blood TestTrinity HealthStart: 05-17-2022 Adolescent depression screening assessmentDepression ScreeningTrincleveland clinic medina [facility] Health Start: 58-12-4768Zqzwednbm C screeningHepatitis C ScreeningTrincleveland clinic [facility] hospital HealthStart: 01-47-4205Dbkue panelCholesterol Screening (Lipid Panel)[facility] HealthStart: 01-16-2023Medicare Annual Wellness VisitMedicare Annual Wellness VisitTrincleveland clinic [facility]ina hospital HealthStart: 97-03-7542Iqmaadvof for malignant neoplasm of breastBreast Cancer ScreeningTrincleveland clinic medina hospital HealthStart: 20-73-4055Pzikkegmo for malignant neoplasm of colonColorectal Cancer Screening: ColonoscopyTrincleveland clinic medina hospital HealthStart: 05-17-2022 Screening for osteoporosisOsteoporosis Screening (Bone Density Screening)[facility]: 63-36-9971Mtmhgt Influencers of Health ScreeningSocial Influencers of Health ScreeningJefferson [facility]: 96-68-6995Fwdhtsp referralReferrals: DME LT Hip RevisionOrthoAlliance Saint [facility]–Barry RoadStart: 04-61-7420IWLMX-19 VACCINE (2 - Pfizer 3-dose series)COVID-19 VACCINE (2 - Pfizer 3-dose series)[facility]: 41-27-3806BOLTR-19 Vaccine (2 - Pfizer series)COVID-19 Vaccine (2 - Pfizer series)[facility] ValleyStart: 88-90-9494Lfxtewrww vaccinationINFLUENZA VACCINE (#1)[facility] Camp[facility]: 01-32-1015Uxxt Risk ScreeningFall Risk ScreeningAnson Community Hospitaltart: 75-00-9815Kasblfsafdya vaccination PNEUMOCOCCAL VACCINE SERIES (1 of 1 - PPSV23)[facility]: 30-39-5152Wzewobjwtvxlft of varicella zoster vaccineZoster (Shingles) Vaccine (1 of 2)[facility] Hospital[facility]: 20-39-8074Hkoidw vaccine hzv live for subcutaneous useZOSTER (SHINGLES) VACCINE (1 of 2)[facility]: 93-76-4032Cefvid Vaccines (1 of 2)Zoster Vaccines (1 of 2)[facility]Start: 95-21-3205SypkgsjcddsEECMDLBDNK CANCER SCREENING DISCUSSIONMercy Health Urbana Hospital Start: 07-58-7291Xpjaxes lipid profileLIPID SCREENINGKettering Health Main Campustart: 22-23-9804Snjufnwel mammographyMAMMOGRAM SCREENING DISCUSSIONMercy Health Urbana Hospital Start: 82-82-1229Wcnmwtuvx for malignant neoplasm of cervixCERVICAL CANCER SCREENING DISCUSSIONKettering Health Main Campustart: 55-87-8932MHbK,Tdap and Td Vaccines (1 - Tdap)DTaP,Tdap and Td Vaccines (1 - Tdap)[facility] Start: 73-13-5361TNgD,Tdap,and Td Vaccines (1 - Tdap)DTaP,Tdap,and Td Vaccines (1 - Tdap)[facility] ValleyStart: 51-44-2950Vybuc diphtheria, tetanus and acellular pertussis (DTaP) vaccinationTDAP (ADULT)[facility] SystemStart: [facility]1965 Tetanus vaccinationTETANUSAMercy Health Defiance Hospitaltart: 53-16-4217Npgqwkjhqd ScreeningDepression ScreeningAnson Community Hospitaltart: 93-37-4315Nwpuesw ScreeningTobacco ScreeningProOhio Valley Hospitaltart: 07-36-7015Fyavsmeaf C antibody, confirmatory testHEPATITIS C VIRUS SCREENINGKettering Health Main Campustart: 82-36-2901Tgwtuihcm for osteoporosisDEXA SCAN DISCUSSIONMercy Health U[facility] Hospital Bacteria identified in Tissue by CultureCulture tissue with gram stain Microbiology Routine Other mechanical complication of internal left hip prosthesis, initial encounter ([facility]) 05/27/2022 11:30 AM [facility] Bacteria identified in Tissue by CultureCulture tissue with gram stain Microbiology Routine 05/27/2022 3:08 PM [facility] End: 97-24-7673Chhyteyg identified in Unspecified specimen by Anaerobe culture [employer] Work Phone: comment on above:Release Upon Ordering for 1 Occurrences starting 05/27/2022Once for 1 Occurrences starting 05/27/2022 until 05/27/2022acteria identified in Unspecified specimen by Anaerobe cultureCulture anaerobic Microbiology Routine 05/27/2022 3:08 PM [facility] End: 93-63-6256Xgbvcdhcclcxd procedure, preparation of smear, genital sourcePap Smear Pathology and Cytology Routine HPV in female 1 Occurrences starting 04/10/2024 until 04/10/2025[employer] Work Phone: Comment on above:1 Occurrences starting 04/10/2024 until 04/10/2025Dermatopathology examDermatopathology exam Pathology and Cytology Timed Neoplasm of unspecified behavior of bone, soft tissue, and skin Release Upon Ordering for 1 Occurrences starting 09/19/2024[employer] Work Phone: comment on above:Release Upon Ordering for 1 Occurrences starting 09/19/2024Dermatopathology examDermatopathology exam Pathology and Cytology Timed Basal cell carcinoma (BCC) of skin of other partof torso Release Upon Ordering for 1 Occurrences starting 11/07/2024[facility] Work Phone: comment on above:Release Upon Ordering for 1 Occurrences starting 11/07/2024Fungus identified in Skin by CultureCulture fungal, other Microbiology Routine Other mechanical complication of internal left hip prosthesis, initial encounter ([facility]) 05/27/2022 11:30 AM ESTTrincleveland clinic medina hospital HealthFungus identified in Skin by CultureCulture fungal, other Microbiology Routine 05/27/2022 3:08 PM ESTTrinity Health End: 16-63-3202Bcpi risk HPV w/genoHigh risk HPV w/brady Lab Routine HPV in female 1 Occurrences starting 04/10/2024 until 04/10/2025[facility] Comment on above:1 Occurrences starting 04/10/2024 until 04/10/2025Mycobacterium sp identified in Unspecified specimen by Organism specific cultureCulture AFB Microbiology Routine Other mechanical complication of internal left hip prosthesis, initial encounter ([facility]) 05/27/2022 11:30 AM ESTTrincleveland clinic medina hospital Health Mycobacterium sp identified in Unspecified specimen by Organism specific culture Culture AFB Microbiology Routine 05/27/2022 3:08 PM ESTTrincleveland clinic medina hospital HealthPathology studyTrincleveland clinic medina hospital HealthComment on above:Release Upon Ordering for 1 Occurrences starting 05/27/2022, 1 completed End: 81-07-9345Vkslrvep PathologySurgical Pathology Pathology and Cytology Routine HPV in female 1 Occurrences starting 04/10/2024 until 04/10/2025 [facility] SystemComment on above:1 Occurrences starting 04/10/2024 until 04/10/2025 Immunizations Immunization DateImmunizationNotesCare MjmqlsbkArzkmkxf52-35-5429yogvibxbg virus vaccine, unspecified formulationNatalie Felter RESIDENTIAL PROGRAM COORDINATOR-ASSISTANT HOUSEKEEPING MANAGER Work Phone: [facility] CenterWffgxthpiq84-78-8523zpqdadzwn virus vaccine, unspecified formulationNatalie Wandy RESIDENTIAL PROGRAM COORDINATOR-ASSISTANT HOUSEKEEPING MANAGER Work Phone: [facility] CenterFeihugiccy40-00-0562omaxrydhx virus vaccine, unspecified formulationGertrudis Encarnacion MD Work Phone: [facility] Payers DatePayer CategoryPayerPolicy [id number]-pay2023MedicaidAETNA MEDICARE ADVANTAGE [id number] 2023MedicareAETNA MEDICARE ADVANTAGE AETNA MEDICARE ADVANTAGE [id number] 2022-Present [phone] [id number] [place] [id number] 2023Medicare OAET MEDICARE Member Subscriber Plan / Payer (Effective 2022-Present) Name: Becky Ponce Relation to Subscriber: Self Name: Becky Ponce ID: 1 (NAIC) Type: Not on file Address: [facility] [id number], [place] [id number].1.13.172.2.7.3.750065.315 1960Medicare [id number] [id number] [id number] 840.1.249149.3.57[id number] 2.840.1.356487.3.57[id number] 2.16.840.1.281753.3.579.[id number] 2.16.840.1.948384.3.57[id number] 2.16840.1.974314.3.579.2.48665-89-0375Vgeyhzy2468426 2.16840.1.018267.3.579.2.04695-57-3821Ucwhkep1338236 2.840.1.159217.3.579.2.33451-12-7367Ihxyhar2604367 2.840.1.268874.3.579.2.38063-88-2982Pfvdaax7079515 2.840.1.746843.3.579.2.35934-60-4946Tydrmid2341730 2.840.1.366682.3.579.2.08358-15-1942Spcyqvw2677461 2.840.1.359492.3.579.2.67049-83-9672Jufdstq5664139 2.840.1.348826.3.579.2.16444-32-2039Pllqzmz7343768 2.16840.1.617491.3.579.2.16773-09-0938Tbkvpsy6541011 2.16840.1.273679.3.579.2.97998-69-6880Dojtaqi2684969 2.16840.1.201666.3.579.2.12886-89-7799Rjiikck1832493 2.16840.1.973829.3.579.2.21929-11-8558Wfzmzbd547005552 2.16840.1.587569.3.579.2.007220-31-3519Xpizfgh753393187 2.840.1.228775.3.579.2.226165-96-4238Uzmzgjl437243537 2.16840.1.301607.3.579.2.810954-24-4216Iinjlhd255422904 2.840.1.801088.3.579.2.655385-26-5683Beywqmi792984469 2.840.1.573801.3.579.2.769117-10-0431Ypjlmem00900166 2.0.1.639883.3.579.2.189843-96-4388Ifucyqq213912340 2..1.387095.3.579.2.554821-08-7416Fsdzttl600300538 2.0.1.193347.3.579.2.051463-89-3669Ffobwcl99158272 2.0.1.590586.3.579.2.552907-42-0341Yflfsxo63286127 2..1.953893.3.579.2.251559-67-8334Pogczoc82798493 2.0.1.222533.3.579.2.056008-40-2025Lblwutf29203987 2.0.1.278887.3.579.2.187017-17-5953Pipqwji9300561 2.840.1.279378.3.579.2.068453-65-8989Ecuncnl5919249 2.840.1.216850.3.579.2.100955-80-2196Owrpzae6500501 2.16.840.1.016275.3.579.2.758593-32-3973Ytxjchs2326949 2.16.840.1.836073.3.579.2.493828-41-5759Gwilaqd7406698 2.16.840.1.237610.3.579.2.125114-88-8773Gbupzrx4329038 2.16.840.1.971547.3.579.2.977521-56-1744Fnjfrvw1799854 2.16.840.1.915096.3.579.2.990265-92-5649Tdsexvt6048530 2.16.840.1.897081.3.579.2.697202-70-3101Wgsmgwv5203862 2.16.840.1.688280.3.579.2.274309-26-5645Lglpovv5565387 2.16.840.1.638354.3.579.2.2485IkkudvyH06401492Ozvtjoo75645083 2.16.840.1.269039.3.579.2.462 Social History DateTypeDetailFacilityStart: 03-10-2021 End: 98-80-9562Ntepscx smoking status NHISNever smoked tobaccoDayton Osteopathic Hospital SystemStart: 03-10-2021 End: 27-32-9464Bycgwil use and exposureSmokeless tobacco non-userKettering Health Main Campustart: 31-74-3888Efkhjna intakeEx-drinker (finding)[facility] Start: 86-40-2911Zncwfza SDOH Alcohol Poursgzwq3XhgoeMercy Health Defiance Hospitaltart: 95-10-0839Xsv Assigned At BirthNot on fileKettering Health Main Campustart: 05-27-2022 End: 11-99-6092Xqjjcuj intakeLifetime non-drinker (finding)[facility]Start: 05-17-2022 End: 58-83-5144Vjilsnqf to SARS-CoV-2 (event)Not sureTrinity HealthStart: 82-20-7342Qjwtkaa smoking status NHISUnknown if ever smokedOrthoAlliance of [place] Start: 42-95-8160Mmqjydt intakeAlcohol Use DetailsOrthoAlliance of [place]Start: 71-04-1613Tit Assigned At BirthFemaleOrthoAlliance of [place]Start: 07-03-2019 Sexual OrientationStraight or heterosexualOrthoAlliance of [place]Start: 11-22-2023 End: 19-28-5612Ckodxot of Social functionNOMS HealthcareStart: 12-17-2019 End: 68-02-2251Hrpwjqp use panelNOMS HealthcareStart: 02-71-8339Tjjzvfr Comment caffeine: noneNOMS HealthcareStart: 40-66-8490Mztlsc identityIdentifies as female gender (finding)[facility] HealthcareStart: 04-30-2024 End: 31-63-2107Xamrlsosd beverage intakeCurrent non-drinker of alcohol (finding) [facility] SystemChildcareUnknownPOchsner Medical Center Health SystemStart: 03-14-2017 SexFemale (finding)[facility] SystemStart: 36-94-7740Mcptuv Orientation Choose not to discloseOrthoAlliance of BatesNEGATED: Highlighted rowStart: NBAF History of tobacco usePassive smokerNOMS HealthcareNEGATED: Highlighted row Start: 12-28-2024 End: 51-88-1178Dpjiqfk smoking status NHISUnknown if ever smokedOrthoAlliance of [place] Medical Equipment Procedure CodeEquipment CodeEquipment Original TextEquipment IdentifierDatesHip Hd Option Blx [facility] 32mm - Sna - [id number])NA, [id number] FDAStart: 05-27-2022 Shl Actb 50mm Hip 3 Hl Fin Pps - [id number]: 44-89-5828Wnxg Actb G7 Ntrl E1 36mm D - [id number]: 66-61-4156Qz Fem 36mm Opt Shl Actb G7 Bl Rpl [id number] - [id number]: 42-47-6894Nyr Fem 107.5mm 133d 11 Hi Os - [id number]_imtVtaej: 72-87-1849Wiu Fem Opt -6mm Tpr Hip Blx D Rpl 650-7331 - [id number]: 07-13-2017 Goals DatePatient GoalDesired Activity/StatePersonal health goalComment on above: Evaluation of progress towards goal: Maximize work with PT at discharge to strengthen L hip Clinical Notes 04-30-2020 to 02-08-2025 Note Date & CighFozeYxkshsyg18-56-9947 Evaluation note* Type Assessment Date assessment [facility] Work Phone: 1(736) 837-985810-10-2025 History of Present illness Narrative* Encounter Date Complaint History Of Prese nt Illness Hip Tff-19-7583ObdhWuh-90-4038OiiEhu-75-3292JqsQjn-61-3456Selt-Op Left HipModifying Factors: Previous Surgery: LH revision 05/17/22 DAC. Comments: Patient states she fell a week ago, she has not had an onset of pain due to the fell. Patient attended PT which went well, still working on strengthening with directed home exercises. She denies hip pain at this time.Sax-22-8775Wnig-Op Left HipModifying Factors: Previous Surgery: LH revision 05/17/22 DAC. Comments: Patient presents for LH revision post op following an ER visit due to falling on the ice the day of surgery, she was dischargedyesterday. . She started having pain 05/31/22. She was told she has a fracture of the left greater trochanter. Patient is not yet in PT but she had been doing directed exercises until the onset of pain on Tuesday05/31/22. Patient is ambulating with a walker.Sft-22-1937Fle Problem Left Hip PainModifying Factors: Previous Surgery: LTHA 2017 Dr. Salazar ([place]). Comments: She complains of worsening left hip pain at her groin and thigh. Worse with weight bearing. Using a cane to assist with ambulation. Dr. Terrazas recently told her recently that her stem is loose but he doesn't do revisions. She was seen at [facility] in 2019 but it appeared that the implant had stabilized. Patient states that her symptoms are worsening and she can barely function at this point. No history of infection. [facility] [place] Work Phone: 1(871) 429-968809-15-2025 Evaluation note* Type Assessment Date assessment [facility] Work Phone: 1(978) 727-153608-29-2025 History of Present illness Narrative* Encounter Date Complaint History Of Prese nt Illness Knee Iaf-96-1201KlpRzf-33-6907IrkWbt-25-2023Post-Op Left HipModifying Factors: Previous Surgery: LH revision 05/17/22 DAC. Comments: Patient states she fell a week ago, she has not had an onset of pain due to the fell. Patient attended PT which went well, still working on strengthening with directed home exercises. She denies hip pain at this time.Kjb-50-4568Ouyg-Op Left HipModifying Factors: Previous Surgery: LH revision 05/17/22 [facility]. Comments: Patient presents for LH revision post op following an ER visit due to falling on the ice the day of surgery, she was dischargedyesterday. . She started having pain 05/31/22. She was told she has a fracture of the left greater trochanter. Patient is not yet in PT but she had been doing directed exercises until the onset of pain on Tuesday05/31/22. Patient is ambulating with a walker.Tpn-60-2350Mxu Problem Left Hip PainModifying Factors: Previous Surgery: LTHA 2018 Dr. Salazar ([place]). Comments: She complains of worsening left hip pain at her groin and thigh. Worse with weight bearing. Using a cane to assist with ambulation. Dr. Terrazas recently told her recently that her stem is loose but he doesn't do revisions. She was seen at [facility] in 2019 but it appeared that the implant had stabilized. Patient states that her symptoms are worsening and she can barely function at this point. No history of infection. [facility] Work Phone: 1(358) 337-816307-23-2025 History of Present illness Narrative* Eloisa Mustafa MD - 11/21/2024 10:35 AM EDT Images from the original note [...] discontinue wound care., Instructed to keep steri stripson for at least 5-7 days., Pathology results discussed. Next Visit: as scheduled documented in this encounterCapital Region Medical CenterHnxcozkxlh01-91-2634 History of Present illness Narrative* Eloisa Mustafa MD - 11/07/2024 10:30 AM EDT Images from the original note were not included. Kelly Ponce is a 78 y.o. female who [...] OF OTHER PART OF TORSO Right Breast Hemingford macule at biopsy site Skin excision Lesion [...] BCC Check Margins: Yes Previous accession number: [id number] Follow up: 14 days for s/r documented in this encounterCapital Region Medical CenterTdeqyiexrf47-38-7713 History of Present illness Narrative* Melissa Saba, RESIDENTIAL PROGRAM COORDINATOR-ASSISTANT HOUSEKEEPING MANAGER - 09/19/2024 8:30 AM EDT Images from the original note [...] Discussed treatment options, including cryotherapy and topical preparations.It was emphasized that any treated lesions that fail to resolve should be re-evaluated. Patient elected for treatment with Efudex as this has become a chronic issue. Educated on Efudex treatment. Apply to Upper Arms and Chest twice a day for two weeks. Discussed that treated areas will become red, crusty, and inflamed. If areas become too uncomfortable, patient may use OTC hydrocortisone cream tohelp decrease irritation and can discontinue treatment early. Sun exposure should be avoided duringtreatment. Patient instructed to contact office for any [...] SKIN (2) Left Lower Leg - Anterior Hemingford papule Lesion biopsy Type of biopsy: tangential [...] lesion: 1.0 x 1.0 cm Right Breast Heming[place] papule Lesion biopsy Type of biopsy: tangential [...] 6 months skin exam documented in this encounterCapital Region Medical CenterMpgkfejvyz11-87-2998 Miscellaneous Notes* Telephone Encounter - Josefina Marshall - 06/29/2024 1:06 PM EST Patient states she got a bill for an iodine 30 mg pill with a date of 06/11/24. This was the day of her LEEP surgery. Patient states neither she or her remember her taking any pills in pre-op.Please call Patient. Thank you. * Telephone Encounter - Josefa Vallejo RN - 06/29/2024 1:06 PM EST Attempted to call the patient and left a message for a call back. - Josefa Vallejo RN 258:57 AM * Telephone Encounter - Josefina Marshall - 06/29/2024 1:06 PM EST Patient returned Josefa Vallejo's call and is requesting to be call back. * Telephone Encounter - Josefa Vallejo RN - 06/29/2024 1:06 PM EST Called the patient and left a message for a call back. - Josefa Vallejo RN 07/04/24 1:41 PM * Telephone Encounter - Josefa Vallejo RN - 06/29/2024 1:06 PM EST Verified with coding that the patient was charged for Iodine Tincture which is a cleaning agent they use on surgical sites prior to making an incision to clean the area of bacteria or other micro organisms. Pt called back and informed her of this information. She verbalized she understood. - Bhavna Vallejo RN 07/04/24 1:46 PM documented in this encounterOhioHealth O'Bleness Hospital02-28-2025 Telephone encounter Note* Telephone Encounter - Josefina Marshall - 06/29/2024 1:06 PM EST Patient states she got a bill for an iodine 30 mg pill with a date of 06/11/24. This was the day of her LEEP surgery. Patient states neither she or her remember her taking any pills in pre-op.Please call Patient. Thank you. [facility]02-28-2025 Telephone encounter Note* Telephone Encounter - Josefa Vallejo RN - 06/29/2024 1:06 PM EST Attempted to call the patient and left a message for a call back. - Josefa Vallejo RN :57 AM [facility]02-28-2025 Telephone encounter Note* Telephone Encounter - Josefina Marshall - 06/29/2024 1:06 PM EST Patient returned Josefa Vallejo's call and is requesting to be call back. [facility]02-28-2025 Telephone encounter Note* Telephone Encounter - Josefa Vallejo RN - 06/29/2024 1:06 PM EST Called the patient and left a message for a call back. - Josefa Vallejo RN 07/04/24 1:41 PM [facility]02-28-2025 Telephone encounter Note* Telephone Encounter - Josefa Vallejo RN - 06/29/2024 1:06 PM EST Verified with coding that the patient was charged for Iodine Tincture which is a cleaning agent they use on surgical sites prior to making an incision to clean the area of bacteria or other micro organisms. Pt called back and informed her of this information. She verbalized she understood. - Bhavna Vallejo RN 07/04/24 1:46 PM [facility]02-24-2025 History of Present illness Narrative* Sanjuanita Whipple MD - 06/25/2024 8:45 AM EST Becky Ponce is a 78 y.o.female. No [...] 06/11/2024 Performed by Sanjuanita Whipple MD at [facility] REPLACEMENT TOTAL JOINT ANTERIOR SUPINE INTERMUSCULAR HIP Left 07/13/2017 Performed by Arnoldo Terrazas MD at [facility] HX Family History Problem Relation [...] 0907 SANJUANITA WHIPPLE MD documented in this encounterOhioHealth O'Bleness Hospital01-20-2025 Instructions* Patient Instructions* Anne-Marie Middleton RN - 05/21/2024 10:30 AM EST Preoperative Education Checklist- General Surgery date: 06/11/24 Surgery time: 2:30 p.m. Arrival time: 12:30 p.m. 1. Bring a photo ID and your insurance card with you the day of surgery. You will check in at the main lobby of the [facility]- registration desk is straight ahead as soon as you walk in. Tell them you are here for surgery. 2. If you have a Living Will/Durable Power of Lan Analyst for Health Care that is not on [...] after you have bathed. 5. NO nail israeli/acrylic on at least one finger. If you are having a hand, wrist or foot surgery then all nail israeli and artificial/acrylic nails must be removed from [...] least 8 hours and marijuana for 24 hoursprior to arrival for your surgery. 16. If [...] please call the Preadmission Testing office at [phone], Mon.-Fri. 7 a.m.-3 p.m. Leave a voicemail [...] after surgery- do not stop unless directed devonte your physician. You may also be given [...] appointment with your doctor. documented in this encounterOhioHealth O'Bleness Hospital01-20-2025 Miscellaneous Notes* Perioperative Nursing Note - Anne-Marie Middleton RN - 05/21/2024 10:30 AM EST Preoperative Education Checklist- General Surgery date: 06/11/24 Surgery time: 2:30 p.m. Arrival time: 12:30 p.m. 1. Bring a photo ID and your insurance card with you the day of surgery. You will check in at the main lobby of the [facility]- registration desk is straight ahead as soon as you walk in. Tell them you are here for surgery. 2. If you have a Living Will/Durable Power of Lan Analyst for Health Care that is not on [...] after you have bathed. 5. NO nail israeli/acrylic on at least one finger. If you are having a hand, wrist or foot surgery then all nail israeli and artificial/acrylic nails must be removed from [...] least 8 hours and marijuana for 24 hoursprior to arrival for your surgery. 16. If [...] please call the Preadmission Testing office at [phone], Mon.-Fri. 7 a.m.-3 p.m. Leave a voicemail [...] after surgery- do not stop unless directed devonte your physician. You may also be given [...] to the follow-up appointment with your doctor. * Perioperative Nursing Note - Anne-Marie Middleton RN - 05/21/2024 10:30 AM EST Surgical instructions reviewed. Patient verbalized understanding. documented in this encounterOhioHealth O'Bleness Hospital01-20-2025 Nurse Note* Perioperative Nursing Note - Anne-Marie Middleton RN - 05/21/2024 10:30 AM EST Preoperative Education Checklist- General Surgery date: 06/11/24 Surgery time: 2:30 p.m. Arrival time: 12:30 p.m. 1. Bring a photo ID and your insurance card with you the day of surgery. You will check in at the main lobby of the [facility]- registration desk is straight ahead as soon as you walk in. Tell them you are here for surgery. 2. If you have a Living Will/Durable Power of Lan Analyst for Health Care that is not on [...] after you have bathed. 5. NO nail israeli/acrylic on at least one finger. If you are having a hand, wrist or foot surgery then all nail israeli and artificial/acrylic nails must be removed from [...] least 8 hours and marijuana for 24 hoursprior to arrival for your surgery. 16. If [...] please call the Preadmission Testing office at [phone], Mon.-Fri. 7 a.m.-3 p.m. Leave a voicemail [...] after surgery- do not stop unless directed devonte your physician. You may also be given [...] to the follow-up appointment with your doctor. [facility]01-20-2025 Nurse Note* Perioperative Nursing Note - Anne-Marie Middleton RN - 05/21/2024 10:30 AM EST Surgical instructions reviewed. Patient verbalized understanding. [facility]01-06-2025 Miscellaneous Notes* Telephone Encounter - Josefina Marshall - 05/07/2024 4:03 PM EST Patient scheduled for surgery with Dr. Whipple on 06/11/24 at 2:30pm with hospital arrival of 12:30pm. PAT scheduled on 05/21/24 at 10:30am. Patient notified of all dates and times and letter mailed. documented in this encounterOhioHealth O'Bleness Hospital01-06-2025 Telephone encounter Note* Telephone Encounter - Josefina Marshall - 05/07/2024 4:03 PM EST Patient scheduled for surgery with Dr. Whipple on 06/11/24 at 2:30pm with hospital arrival of 12:30pm. PAT scheduled on 05/21/24 at 10:30am. Patient notified of all dates and times and letter mailed. [facility]12-10-2024 History of Present illness Narrative* Sanjuanita Whipple MD - 04/10/2024 11:30 AM EST Colposcopy Procedure Note Indications: Pap smear 1 [...] 1150 SANJUANITA WHIPPLE MD documented in this encounterOhioHealth O'Bleness Hospital11-26-2024 History of Present illness Narrative* Sanjuanita Whipple MD - 03/27/2024 11:00 AM EST Becky Ponce is a 78 y.o.female. No [...] 07/13/2017 Performed by Arnoldo Terrazas MD at [facility] Family History Problem Relation [...] smear but noted that her immune system mightbe waning which could have caused her to be HPV positive. Noted that since she is not on an immunosuppressants medication, there is not a high risk, and it is not recommended for her to continue getting pap smears. Advised the pt to increase her Folic acid to 800- 1000 micrograms daily, noting that a vitamin is [...] Kelsie Ruble 03/27/24 1129 documented in this encounterOhio[facility]24 Miscellaneous Notes* Medical Student - Franklin Brown - 03/27/2024 11:00 AM EST Disclaimer: This note is intended for educational [...] the legal medical record. documented in this encounterOhioHealth O[facility]11-26-2024 Progress note* Medical Student - Franklin Brown - 03/27/2024 11:00 AM EST Disclaimer: This note is intended for educational [...] a part of the legal medical record. [facility]11-19-[facility]24 History of Present illness Narrative* Melissa Saba, FRANKIE-KYLE - 03/20/2024 9:50 AM EST Images from the original note [...] limited to risks of scarring, darker or rock mason pigmentary changes, recurrence, incomplete removal and infection. [...] 6 months skin exam documented in this encounterCapital Region Medical CenterXodjzfqjmd49-01-1726 Evaluation note* Type Assessment Date assessment Presence of artificial hip, left assessment Primary osteoarthritis of left h ip [facility] Work Phone: [phone] History of Present illness Narrative* Encounter Date Complaint History Of Prese nt Illness Hip [id number]-Op Left HipModifying Factors: Previous Surgery: LH revision 05/17/22 [facility]. Comments: Patient states she fell a week ago, she has not had an onset of pain due to the fell. Patient attended PT which went well, still working on strengthening with directed home exercises. She denies hip pain at this time.[id number]-Op Left HipModifying Factors: Previous Surgery: LH revision 05/17/22 [facility]. Comments: Patient presents for LH revision post op following an ER visit due to falling on the ice the day of surgery, she was dischargedyesterday. . She started having pain 05/31/22. She was told she has a fracture of the left greater trochanter. Patient is not yet in PT but she had been doing directed exercises until the onset of pain on Tuesday05/31/22. Patient is ambulating with a walker.[id number] Problem Left Hip PainModifying Factors: Previous Surgery: LTHA 2018 Dr. Salazar ([place]). Comments: She complains of worsening left hip pain at her groin and thigh. Worse with weight bearing. Using a cane to assist with ambulation. Dr. Terrazas recently told her recently that her stem is loose but he doesn't do revisions. She was seen at [facility] in 2019 but it appeared that the implant had stabilized. Patient states that her symptoms are worsening and she can barely function at this point. No history of infection. [facility] Work Phone: [phone] NotePROCEDURE: XR HIP LT 2 3V W [...] Electronically authenticated by: FER JUAREZ Date: 2022-06-01 12:03[facility]01-26-[facility] History of Present illness Narrative* Gaby [...] PT - 05/27/2022 3:36 PM EST [facility] Evaluation PT Discharge Recommendations: Home [...] of internal left hip prosthesis, initial encounter ([facility]) Past Medical History: Diagnosis Date [...] of Steps 1 Prior Function Level of [place] Independent with mobility and functional transfers Bed [...] 05/27/22 Outcomes Date/Time User Outcome 05/27/22Claudia Peng, PT Completed Goal: Pt will transfer with SBA. (Resolved) Dates: Start: 05/27/22 Expected End: 05/27/22 Met: 05/27/22 Outcomes Date/Time User Outcome 05/27/22Claudia Peng, PT Completed Goal: Pt will ambulate 100 ft. with wheeled walker and SBA (Resolved) Dates: Start: 05/27/22 Expected End: 05/27/22 Met: 05/27/22 Outcomes Date/Time User Outcome 05/27/22Claudia Peng, PT Completed Goal: Pt will ascend/descend curb step with CGA and LRAD (Resolved) Dates: Start: 05/27/22 Expected End: 05/27/22 Met: 05/27/22 Outcomes Date/Time User Outcome 05/27/229 Clau Peng PT Completed Goal: Pt will demo understanding of anterior hip precautions (Resolved) Dates: Start: 05/27/22 Expected End: 05/27/22 Met: 05/27/22 Outcomes Date/Time User Outcome 05/27/22 161Claudia Peng PT Completed Education Documentation Precautions, taught [...] POCT 05/27/2022 98 IMAGING documented in this encounterCurahealth Heritage ValleyVgmibq95-56-3958 Hospital course Narrative* Marisela Pope RN - [...] SHEETS Contact Surgeon's office with any questions/concerns [phone] -Plasma Flow SCD'S Compression leg pumps on [...] or concerns. Verify Office location when scheduling. [email or web address] [phone] * Princess Kenney RN - 05/25/2022 1:43 [...] prior to your surgery. Check in at hospital receptionist desk [address] [facility] [address] [place] [address]. If Outpatient, these additional instructions apply: An adult must stay with you the whole time you are here and drive you home. An adult must stay withyou at home for 24 hours due to Anesthesia. If you have JESUS, you are required to stay 3 hours after your surgery before we can discharge you. documented in this encounterCurahealth Heritage ValleyEoivki47-72-5020 Procedure note* Nancy Daniel RN - 05/27/2022 10:[address] Pemberton, Dr. Butcher, OR Nurse all aware of this patients skin tear on the right ankle (caused when patient was putting on her socks) assessed, documented and wound dressing applied. Salima [id number] Procedure note* Nancy Daniel RN - 05/27/2022 10:[address] Pemberton, Dr. Butcher, OR Nurse all aware of this patients skin tear on the right ankle (caused when patient was putting on her socks) assessed, documented and wound dressing applied. documented in this encounterCraigsville [id number] History and physical note* Saranya Butcher MD - 05/27/2022 9:49 AM EST History and Physical Update ( H&P completed within the previous thirty days ) I personally reviewed the History and Physical, interviewed and examined the patient prior to surgery. No changes have occurred in the patient's condition since the History and Physical was completed. [facility] Work Phone: [phone] History and physical note* Saranya Butcher MD - 05/27/2022 9:49 AM EST History and Physical Update ( H&P completed within the previous thirty days ) I personally reviewed the History and Physical, interviewed and examined the patient prior to surgery. No changes have occurred in the patient's condition since the History and Physical was completed. documented in this encounterCraigsville [id number] NotePROCEDURE: XR HIP LT 2 3V W [...] Electronically authenticated by: FER JUAREZ Date: 2022-03-31 06:56[facility]03-30-2022 History of Present illness Narrative* Spring [...] see them back PRN. documented in this encounterAvita Health [id number] NoteChief Complaint referral for positive occult stool [...] Use:., 04/30/2020 Family History Family history is negativeWright-Patterson Medical CenterComment on above:Result Comment: Electronically Signed By: Ajith PADILLA MD\Date and Time Signed: 04/30/20 15:38 ESTConsult note* Clinical Note Date No Information [facility] Work Phone: Discharge summary* Clinical Note Date No Information [facility] Work Phone: Evaluation note* Diagnosis Rhytides- Primary Other specified hypertrophic and atrophic condition of skin Atrophic skin Other specified hypertrophic and atrophic condition of skin [facility]* Diagnosis Other mechanical complication of internal left hip prosthesis, initial encounter ([facility])- Primary documented in this encounter [facility]* Diagnosis Pain Generalized pain documented in this encounter [facility] ValleyEvalubayhealth medical center note* Diagnosis Seborrheic keratosis- Primary Onychomycosis Dermatophytosis of nail Lentigines Actinic keratosis documented in this encounter [facility]* Diagnosis Preop examination- Primary Unspecified pre-operative examination Hypertension, unspecified type Preop examination Unspecified pre-operative examination Hypertension, unspecified type documented [facility] this encounter [facility]* 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 documented in this encounter [facility]* 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 vaginitis Postmenopausal atrophic vaginitis documented in this encounter [facility]* 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 documented in this encounter [facility]* Diagnosis Seborrheic keratosis- Primary Lentigines Actinic keratosis History of SCC (squamous cell carcinoma) of skin Personal history of other malignant neoplasm of skin Neoplasm of unspecified behavior of bone, soft tissue, and skin documented in this encounter [facility]* Diagnosis Basal cell carcinoma (BCC) of skin of other part of torso- Primary documented in this encounter [facility] HealthcareEvaluation [facility]* Diagnosis Encounter for removal of sutures- Primary documented in this encounter [facility] HealthcareEvaluation note* Type Assessment Date No Information [facility] Work Phone: History and physical note* Clinical Note Date No Information [facility] Work Phone: Hospital Discharge instructions* Attachments The following attachments cannot be sent through Care Everywhere. * DVT (Deep Vein Thrombosis): Prevention: General Info (Lebanese) * Incentive Spirometer: General Info (Lebanese) * Fall Prevention (Lebanese) * Opioids: General Info (Lebanese) * Constipation (Lebanese) * Antibiotics: General Info (Lebanese) documented in this encounterCraigsville HealthInstructions* Date Instruction Additional Infor mation No Information [facility] Phone: InstructionsNot on filedocumented in this encounter [facility] SystemInstructionsNot on filedocumented in this encounter [facility] SystemInstructionsNot on filedocumented in this encounter [facility] SystemInstructionsNot on filedocumented in this encounter [facility] SystemProgress note* Clinical Note Date No Information [facility] Phone: Reason for referral (narrative)* Reason For Referral No Information [facility] Phone: Reason for visit Narrative* Auth/CertSpecialty Diagnoses / ProceduresReferred By ContactReferred To Contact Diagnoses Other mechanical complication of internal left hip prosthesis, initial encounter ([facility]) T84.091A Procedures IA REVISION PRATIK ACETABULAR COMPONENT ONLY W/WO AUTOGRAFT/ALLOGRAFT IA REVISION PRATIK ACETABULAR COMPONENT ONLY W/WO AUTOGRAFT/ALLOGRAFT 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, anterior Saranya Butcher MD [address] [place] [id number] [facility] [place] [address] [place] [address] Referral IDStatusReasonStart DateExpiration DateVisits RequestedVisits [id number] [facility] Summary Purpose Family History No Family History Records Found Family Member Type Diagnosis Age At Onset No Information Advance Directives No Advanced Directives Records FoundLatest Code Status on File Code StatusDate ActivatedDate InactivatedCommentsFull Code - Default1/ 1:42 PM05/27/2022 9:13 PMThis is order is used when code status has not been discussed with the patient, or code status is otherwise unknown/unconfirmed To update the patient's code status, place a code status order. Do not modify or discontinue any currently active code status orders. Provide all therapy to prevent/treat cardiac or respiratory arrest. Directive Yes / No Effective Date File Name No Information Date ActivatedDate InactivatedComments07/13/2017 11:50 AM07/14/2017 4:05 PMDate ActivatedDate InactivatedComments07/13/2017 11:50 AM07/14/2017 4:05 PM Additional Source Comments INFORMATION SOURCE (unrecogn ized section and content) DATE CREATED AUTHOR 09/27/2020 [facility] DATE CREATED AUTHOR AUTHOR'S ORGANIZ ATION 11/30/2021 [facility] DATE CREATED AUTHOR AUTHOR'S ORGANIZ ATION 08/02/2022 [facility] DATE CREATED AUTHOR AUTHOR'S ORGANIZ ATION 08/07/2022 [facility] DATE CREATED AUTHOR AUTHOR'S ORGANIZ ATION 10/21/2022 [facility] DATE CREATED AUTHOR AUTHOR'S ORGANIZ ATION 06/20/2024 [facility] DATE CREATED AUTHOR AUTHOR'S ORGANIZ ATION 06/26/2024 [facility] DATE CREATED AUTHOR AUTHOR'S ORGANIZ ATION 11/22/2024 [facility] DATE CREATED AUTHOR AUTHOR'S ORGANIZ ATION 03/06/2025 [facility] Reason for Visit (unrecogniz ed section and content) ReasonCommentsCosmeticRestylaneReasonCommentsSkin CheckFollow-upReasonComments ConsultReasonCommentsColposcopyReasonCommentsSkin CheckSuspicious Skin Lesion ReasonCommentsExcisionReasonCommentsSuture / Staple Removal Care Teams (unrecognized sec tion and content) Team MemberRelationshipSpecialtyStart DateEnd Date Dorcas Aguirre MD [address] [facility] [place] [address] PCP - GeneralFamily Qtqnorrj26/9/21Team MemberRelationshipSpecialtyStart DateEnd Date Dorcas Aguirre MD [address] [place] [facility] [address] PCP - Generalmily Medicine05/18/22Team MemberRelationshipSpecialtyStart DateEnd Date Dorcas Aguirre MD [address] [place] [facility] [address] [facility] - [facility]22 Name Effective Dates (start - stop) Status Members No Information Team MemberRelationshipSpecialtyStart DateEnd Date Dorcas Aguirre MD [address] [place] [facility] [place] [address] [facility] - [facility]10/13/22Team MemberRelationshipSpecialtyStart DateEnd Date Dorcas Aguirre MD [address] [place] [facility] [address] PCP - [facility] Medicine10/13/22Team MemberRelationshipSpecialtyStart DateEnd Date Dorcas Aguirre MD PCP - Imxxueo78/5/17Team MemberRelationshipSpecialtyStart DateEnd Date Dorcas Aguirre MD PCP - Llkkeur01/5/17Team MemberRelationshipSpecialtyStart DateEnd Date Dorcas Aguirre MD PCP - Hsxpchv15/5/17Team MemberRelationshipSpecialtyStart DateEnd Date Dorcas Aguirre MD PCP - Jmzwvdh39/5/17Team MemberRelationshipSpecialtyStart DateEnd Date Dorcas Aguirre MD [address] [place] [facility] [place] [address] PCP - [facility]10/13/22Team MemberRelationshipSpecialtyStart DateEnd Date Dorcas Aguirre MD [address] [facility] [address] PCP - [facility]10/13/22Team MemberRelationshipSpecialtyStart DateEnd Date Dorcas Aguirre MD [address] [facility] [address] PCP - [facility]10/13/22Team MemberRelationshipSpecialtyStart DateEnd Date Dorcas Aguirre MD [address] [place] [facility] [address] PCP - [facility]10/13/22Team MemberRelationshipSpecialtyStart DateEnd Date Dorcas Aguirre MD [address] [place] [facility] [address] PCP - [facility]10/13/22 Ordered Prescriptions (unrec ognized section and content) PrescriptionSigDispensedRefillsStart DateEnd ondansetron (ZOFRAN) 4 mg tablet Take 1 tablet (4 mg total) by mouth every 8 (eight) hours if needed for nausea or vomiting for up to 7 days. 15 tablet /06/2022 cephalexin (KEFLEX) 500 mg capsule Take 1 capsule (500 mg total) by mouth every 6 (six) hours for 10 days. 40 each /08/2022 oxyCODONE (ROXICODONE) 5 mg immediate release tablet Take 1-2 tablets (5-10 mg total) by mouth every 4 (four) hours if needed for moderate pain or severe pain for up to 7 days. Dx: Z96.6 Max Daily Amount: 60 mg 40 tablet traMADoL (ULTRAM) 50 mg tablet Take 1-2 tablets (50-100 mg total) by mouth every 6 (six) hours if needed for moderate pain for up to 7 days. Dx: Z96.6 Max Daily Amount: 400 mg 40 tablet celecoxib (CeleBREX) 200 mg capsule Take 1 capsule (200 mg total) by mouth 1 (one) time each day. If prior authorization is required, do not fill. 30 capsule acetaminophen (TYLENOL) 500 mg tablet Take 2 tablets (1,000 mg total) by mouth 3 (three) times a day for 7 days. Do not exceed 3,000 mg daily limit. 50 tablet aspirin 81 mg chewable tablet Chew 1 tablet (81 mg total) 2 (two) times a day. Aspirin 81 mg , 1 tab PO BID for 6 weeks, Disp appropriate quantity. If patient is prescribed Arixtra/Lovenox/Xarelto, do not begin Aspirin until thatmedication is finished, then only take Aspirin for 4 weeks. 84 tablet Scheduled Active and Recently Administ ered Medications (unrecognized section and content) Medication Order/ acetaminophen (TYLENOL) tablet 1,000 mg 1,000 mg, oral, 3 times daily, First dose on Tue05/27/22 at 2100 * 2100 (Canceled Entry - Provider: Automatic Discharge Provider - Comment: Automatically canceled at discontinue of medication order) aspirin EC tablet 81 mg 81 mg, oral, 2 times daily, First dose on Tue05/28/22 at 0900, For 42 days, Recovery & On Unit,Do not crush, chew, or split. atorvastatin (LIPITOR) tablet 10 mg 10 mg, oral, Nightly, First dose on Tue05/27/22 at 2100 * 2100 (Canceled Entry - Provider: Automatic Discharge Provider - Comment: Automatically canceled at discontinue of medication order) ceFAZolin (ANCEF) 2 gram/20 mL IV syringe 2 g (COMPLETED) 2 g, intravenous, Administer over 3 Minutes, Once, On Inez 05/27/22 at 0845, For 1 dose, Preprocedure, Administer within 60 minutes of incision For pt under 120 KG, Indication: Prophylaxis-Surgical * 1050 (Given - Provider: REYNALDO Garcias) ceFAZolin (ANCEF) 2 gram/20 mL IV syringe 2 g 2 g, intravenous, Administer over 3 Minutes, Every 8 hours, First dose on Inez 05/27/22 at 1800, For 2 doses, Recovery & On Unit, Indication: Prophylaxis-Surgical * 1709 (Given - Provider: Gaby Sanchez RN) celecoxib (CeleBREX) capsule 200 mg (COMPLETED) 200 mg, oral, Once, On Inez 05/27/22 at 0845, For 1 dose, Preprocedure, If not allergic to NSAIDs * 0926 (Given - Provider: Nancy Daniel RN - Comment: per preop orders) celecoxib (CeleBREX) capsule 200 mg 200 mg, oral, Daily, First dose on Tue05/28/22 at 0900, Recovery & On Unit lactated Ringer's infusion (COMPLETED) 100 mL/hr, intravenous, Once, On Inez 05/27/22 at 0845, For 1 dose, Preprocedure * 0911 (New Bag - Provider: Nancy Daniel RN) levothyroxine (SYNTHROID, LEVOTHROID) tablet [...] First dose on Inez 05/27/22 at 2100 * 2100 (Canceled Entry - Provider: Automatic Discharge Provider - Comment: Automatically canceled at discontinue of medication order) sodium chloride 0.9 % flush 10 mL(Linked Group 1) 10 mL, intravenous, 2 times daily, First dose on Inez 05/27/22 at 1400, Recovery & On Unit * 1400 (Canceled Entry - Provider: Automatic Discharge Provider - Comment: Automatically canceled at discontinue of medication order) * 2100 (Canceled Entry - Provider: Automatic Discharge Provider - Comment: Automatically canceled at discontinue of medication order) tranexamic acid (CYKLOKAPRON) injection 1,000 mg (COMPLETED) 1,000 mg, intravenous, Administer over 10 Minutes, Once, On Inez 05/27/22 at 0845, For 1 dose, Preprocedure, Not to exceed 100 mg (1 mL) per minute., Tranexamic Acid Indication: Surgical Prophylaxis: Orthopedic * 1050 (Given - Provider: REYNALDO Garcias) Medication Order// lactated Ringer's infusion (CANCELED) 100 mL/hr, intravenous, Continuous, Starting on Inez 05/27/22 at 1345, Recovery (only) * 1445 (Restarted - Provider: Gaby Sanchez, KARLA) lactated Ringer's infusion 100 mL/hr, intravenous, Continuous, Starting on Inez 05/27/22 at 1500 * 1511 (New Bag - Provider: Gaby Sanchez, KARLA) Oxygen Therapy, Adult inhalation, Continuous, Starting on Inez 05/27/22 at 1515, Titrate 1 lpm - 4 lpm to keep SpO2 above 90%. If flow is increased above 4 lpm, please contact the physician., Device: Nasal Cannula, Keep O2 Sat Above: 90% * 1515 (Canceled Entry - Provider: Automatic Discharge Provider - Comment: Automatically canceled at discontinue of medication order) Medication Order// acetaminophen (TYLENOL) tablet 325 mg 325 mg, oral, Every 6 hours PRN, mild pain, headaches, fever, Starting on Inez 1/26/23 at 1445 aluminum-magnesium hydroxide-simethicone (MAALOX) 200-200-20 mg/5 mL suspension 30 mL 30 mL, oral, 4 times daily PRN, indigestion, heartburn, Starting on Tue05/27/22 at 1445 bethanechol (URECHOLINE) tablet 25 mg 25 mg, oral, 3 times daily PRN, As needed for urinary retention or PVR greater than 400 cc, Starting on Tue05/27/22 at 1445 bisacodyL (DULCOLAX) suppository 10 mg 10 mg, rectal, Daily PRN, constipation, If magnesium hydroxide ineffective, Starting on Tue05/27/22at 1445 cloNIDine (CATAPRES) tablet 0.1 mg 0.1 mg, oral, Every 8 hours PRN, high blood pressure, for SBP more than 170 or DBP more than 105, Starting on Tue05/27/22 at 1445 cyclobenzaprine (FLEXERIL) tablet 10 mg 10 mg, oral, 3 times daily PRN, muscle spasms, Starting on Tue05/27/22 at 1445 diphenhydrAMINE (BENADRYL) capsule 25 mg 25 mg, oral, Every 6 hours PRN, itching, Starting on Tue05/27/22 at 1445 diphenhydrAMINE (BENADRYL) injection 25 mg 25 mg, intravenous, Every 6 hours PRN, itching, Starting on Tue05/27/22 at 1433 EPINEPHrine (ADRENALIN) injection (CANCELED) As needed, Starting on Tue05/27/22 at 1138, Intraprocedure * 1138 (Given - Provider: Saranya Butcher MD) fentaNYL (SUBLIMAZE) injection 25 mcg (CANCELED) 25 mcg, intravenous, Every 5 min PRN, moderate pain, For PACU use only., Starting on Tue05/27/22 [id number], For 6 doses, Recovery (only) * 1354 (Given - Provider: Darby Rivera RN) * 1406 (Given - Provider: Darby Rivera RN) HYDROmorphone (DILAUDID) injection 0.5 mg 0.5 mg, intravenous, Every 2 hours PRN, severe pain, For severe breakthrough pain not relieved withoral pain medication, Starting on Inez 05/27/22 at [...] on Inez 05/27/22 at 1336, Recovery & OnUnit, -Give IV if patient is unable to take orally. -If inadequate response within 30 minutes, proceed to next-line agent or contact provider if no further options ordered. For ODT tablets: -Do not remove from blister pack until just before administering. -Patient should allow tablet to dissolve ontongue. oxyCODONE (ROXICODONE) immediate release tablet 10 mg(Linked Group 2) 10 mg, oral, Every 4 hours PRN, severe pain, Starting on Inez 05/27/22 at 1445 * 1712 (Given - Provider: Gaby Sanchez RN) oxyCODONE (ROXICODONE) immediate release tablet 5 mg(Linked Group 2) 5 mg, oral, Every 4 hours PRN, moderate pain, Starting on Inez 05/27/22 at 1445 * 1712 (See Alternative - Provider: Gaby Sanchez RN) polyvinyl alcohol (ARTIFICIAL TEARS) 1.4 % ophthalmic solution 1 drop 1 drop, Both Eyes, Daily PRN, dry eyes, Starting on Inez 05/27/22 at 1445 povidone-iodine (BETADINE) 30 mL in sodium chloride 0.9 % 1,000 mL irrigation (CANCELED) As needed, Starting on Inez 05/27/22 at 1257, Intraprocedure * 1257 (Given - Provider: Saranya Butcher MD) promethazine (PHENERGAN) suppository 25 [...] Starting on Inez 05/27/22 at 1139, Intraprocedure * 1139 (Given - Provider: Saranya Butcher MD) sodium chloride 0.9 % flush 10 mL(Linked Group 1) 10 mL, intravenous, As needed, line care, Starting on Inez 05/27/22 at 1336, Recovery & On Unit sodium chloride 0.9 % irrigation solution (CANCELED) As needed, Starting on Inez 05/27/22 at 1139, Intraprocedure * 1139 (Given - Provider: Saranya Butcher MD) traZODone (DESYREL) tablet 50 mg 50 mg, oral, Nightly PRN, sleep, Starting on Inez 05/27/22 at 1445 Order Group 1: Insert peripheral IV (CANCELED) STAT, Once, On Inez 05/27/22 at 1337, For 1 occurrence
Recovery & On Unit And Maintain IV access (CANCELED) Until discontinued, Starting on Inez 05/27/22 at 1337, Until Specified
Recovery & OnUnit And Saline lock IV (CANCELED) Routine, Once, [...] BE BASED ON THE PRIMARY CLINICAL RECORDS. [facility]. provides no warranty or guarantee of the accuracy or completeness of information in this document.
--- OUTSIDE RECORDS SUMMARY | 2025-04-10 22:49 | XMS_ITS | Clinical Summary ---
Author Organization [facility] [place] Address [address] [place] [address] Care Team Providers Care Agency Sales Management Assistant Name Role Phone Unavailable Primary Care Provider Unavailabl e Social History Tobacco UseTypesPacks/DayYears UsedDateSmoking Tobacco: Never AssessedUT Safety & EnvironmentAnswerDate RecordedFear of Current or Ex-PartnerNot on file 06/23/2023Emotionally AbusedNot on file06/23/2023hysically AbusedNot on file 06/23/2023Sexually AbusedNot on file06/23/2023hysically or Sexually AbusedNot on file06/23/2023CommentsUnknownSex and Gender InformationValueDate RecordedSex Assigned at BirthNot on fileLegal UbiUpvgrd16/29/2022 10:52 PM EDT Gender IdentityNot on fileSexual OrientationNot on file Last Filed Vital Signs Vital SignReadingTime TakenCommentsBlood Jbewtvhx331/8108 9:45 AM EDT Pulse--Temperature--Respiratory Rate--Oxygen Qfneypsfwp89%12/28/2021 9:45 AM EDT Inhaled Oxygen Concentration--Fuildf54.2 kg (135 lb)12/28/2021 9:43 AM EDTHeight 162.6 cm (5' 4 )12/28/2021 9:39 AM EDTBody Mass Index23.1708 9:39 AM EDT Plan of Treatment Not on file
--- OUTSIDE RECORDS SUMMARY | 2025-04-10 22:49 | XMS_ITS | Clinical Summary ---
Author Organization [facility] Address [address] [place] [address] Care Team Providers Care Composition Floor Layer Name Role Phone Rodney Hernandez MD Primary Care Provider [phone] Allergies No known active allergies Medications MedicationSigDispense QuantityRefillsLast FilledStart DateEnd DateStatus Acetaminophen Extra Strength 500 MG tablet 05/27/2022ctive alendronate (Fosamax) 70 MG tablet Active amitriptyline (Elavil) 50 MG tablet Active celecoxib (CeleBREX) 200 MG capsule Take 200 mg by mouth Daily05/27/2022ctive cephalexin (Keflex) 500 MG capsule 05/27/2022ctive diclofenac (Voltaren) 75 MG EC tablet Active fluorouracil (Efudex) 5 % solution every 12 (twelve) hoursActive levothyroxine (Synthroid, Levoxyl) 75 MCG tablet Active liothyronine (Cytomel) 5 MCG tablet Active lisinopril 10 MG tablet Active montelukast (Singulair) 10 MG tablet in the morning.Active ondansetron ODT (Zofran-ODT) 4 MG disintegrating tablet 06/03/2022ctive ondansetron (Zofran) 4 MG tablet 05/27/2022ctive oxyCODONE (Roxicodone) 5 MG immediate release tablet 05/27/2022ctive phenazopyridine (Pyridium) 200 MG tablet 08/25/2022ctive polyvinyl alcohol (Liquifilm Tears) 1.4 % ophthalmic solution Administer 1 drop into both eyesActive simvastatin (Zocor) 20 MG tablet Active sulfamethoxazole-trimethoprim (Bactrim DS) 800-160 MG per tablet Take 1 tablet by mouth in the morning and 1 tablet before bedtime.08/25/2022 Active traMADol (Ultram) 50 MG tablet 05/27/2022ctive fluorouracil (Efudex) 5 % cream Indications:Actinic keratosisApply to directed areas on upper arms and chest bid x 14 days 40 g 5Active Active Problems ProblemNoted DateDiagnosed DateAge-related nuclear cataract of left eye 10/13/2022Retinitis yvhqfuztxe87/14/2023ry eyes10/13/2022seudophakodonesis 10/13/2022 Encounters DateTypeDepartmentCare LktcDghipfpfluh33/02/2025 9:25 AM ESTOffice Visit [facility] [address] [place] [address] Mahi Saba APRN-CNP Seborrheic keratosis (Primary Dx); Lentigines; Actinic keratosis; Neoplasm of unspecified behavior of bone, soft tissue, and skin04/02/2025amboo flowsheet [facility] [address] [place] [address] Mahi Saba APRN-CNP 04/02/2025Travelfrom Last 3 Months Family History Medical HistoryRelationNameCommentsDiabetesFatherGlaucomaFatherCataractsMother DiabetesMotherHeart diseaseMotherStrokeMotherMelanomaNeg HxRelationNameStatus CommentsFatherDeceasedMotherDeceased Social History Tobacco UseTypesPacks/DayYears UsedDateSmoking Tobacco: NeverPassive Smoke Exposure: NeverSmokeless Tobacco: Never Tobacco Cessation:Counseling Given: No Alcohol UseStandard Drinks/WeekCommentsNever0 (1 standard drink = 0.6 oz pure alcohol)caffeine: noneCommentsUnknownSex and Gender InformationValueDate RecordedSex Assigned at LpxsdKmovng80/13/2023 2:42 PM EDTLegal SexFemale 07/14/2022 6:54 PM EDTGender XixtgrdsDrfjqu61/13/2023 2:42 PM EDTSexual OrientationNot on file Last Filed Vital Signs Vital SignReadingTime TakenCommentsBlood Lddldjwk360/66010/13/2022 2:49 PM EDTNo latex allergy, no PM or DF, no gkodohCtbrv7953/14/2023 2:49 PM EDTTemperature-- Respiratory Rate--Oxygen Saturation--Inhaled Oxygen Concentration--Weight-- Thezta775.6 cm (5' 4 )04/14/2022 12:00 PM ESTBody Mass Index-- Plan of Treatment DateTypeDepartmentCare Team (Latest Contact Info)Xznqlzxllht73/04/2026 9:15 AM EDTOffice Visit [facility] [address] [place] [address] Mahi Saba APRN-CNP [address] [place] [address] Health MaintenanceDue DateLast DoneCommentsCOVID-19 Vaccine ( season) /06/2020Influenza Vaccine (#1)501/, 05/18/2023, 03/23/2022, Additional history existsPneumococcal Vaccine: 65+ YearsCompleted 03/31/2017, 03/02/2017 Procedures Procedure NamePriorityDate/TimeAssociated DiagnosisCommentsCRYOTHERAPY SKIN FQMWXSSpmbxbc03/02/2025 9:38 AM EST Actinic keratosis SKIN / NAIL EEUUZPWmyjoed93/02/2025 9:30 AM EST Neoplasm of unspecified behavior of bone, soft tissue, and skin from Last 3 Months Results * Cryotherapy, skin lesion (04/02/2025 9:38 AM EST) Narrative Authorizing ProviderResult TypeResult StatusNatalie Tresa FLORESDERM PROCEDURE ORDERABLESFinal Result * Lesion biopsy (04/02/2025 [...] lidocaine used: 1 cc Authorizing ProviderResult TypeResult StatusNatalie A Felter FRONT OFFICE HELP-CNPDERM PROCEDURE ORDERABLESFinal Result from Last 3 Months Insurance Care Teams Team MemberRelationshipSpecialtyStart DateEnd Rodney Hernandez MD [address] [place] [address] PCP - GeneralFamily Medicine10/13/22
--- OUTSIDE RECORDS SUMMARY | 2025-04-10 22:49 | XMS_ITS | Clinical Summary ---
Author Organization [facility] Address [id number] [address] [place] [address] Care Team Providers Care Women'S Ministry Director Name Role Phone Rodney Hernandez MD Primary Care Provider [phone] Allergies No known active allergies Medications MedicationSigDispense QuantityRefillsLast FilledStart DateEnd DateStatus lisinopril (PRINIVIL,ZESTRIL) 10 mg tablet Take 2 tablets (20 mg total) by mouth every morning before breakfast.04/01/2017 Active amitriptyline (ELAVIL) 50 mg tablet Take 1 tablet (50 mg total) by mouth nightly.02/26/2017Active simvastatin (ZOCOR) 20 mg tablet Take 1 tablet (20 mg total) by mouth nightly.04/01/2017Active diclofenac (VOLTAREN) 75 mg EC tablet Take 1 tablet (75 mg total) by mouth in the morning and 1 tablet (75 mg total) before bedtime.Active SYNTHROID 75 mcg tablet Take 1 tablet (75 mcg total) by mouth every morning before breakfast. Take on empty enqtflh4502/24/2024ctive cholecalciferol, vitamin D3, 2,000 units tablet Take 1 tablet (2,000 Units total) by mouth in the morning.Active pantoprazole (PROTONIX) 40 mg EC tablet Take 1 tablet (40 mg total) by mouth in the morning.Active montelukast (SINGULAIR) 10 mg tablet Take 1 tablet (10 mg total) by mouth nightly.Active semaglutide 0.25 mg or 0.5 mg(2 mg/1.5 mL) pen injector INJECT 25 UNITS (0.25MG) SUBCUTANEOUSLY ONCE WEEKLY ON THE SAME DAY05/28/2024 Active Active Problems ProblemNoted DateDiagnosed DateThigh pain, musculoskeletal, left01/18/2019 Aftercare following left hip joint replacement yjwcdvf8003/09/2018It band syndrome, left03/09/2018Status post total hip replacement, left09/13/2017Chronic kidney disease, stage Essential ccujtsqoxvmm26/14/2018Dyslipidemia 07/13/2017Primary osteoarthritis of left hip04/05/2017Encounter for long-term (current) use of upsexfxqhxc97/05/2017 Resolved Problems ProblemNoted DateDiagnosed DateResolved DateOsteoarthritis of one hip, left Family History Medical HistoryRelationNameCommentsNo Known ProblemsBrotherDiabetesFather ArthritisMotherCOPDMotherHeart diseaseMotherDementiaSisterDiabetesSister Anesthesia problemsNeg HxRelationNameStatusCommentsBrotherAliveFatherDeceased MotherDeceasedSisterDeceased Social History Tobacco UseTypesPacks/DayYears UsedDateSmoking Tobacco: NeverSmokeless Tobacco: Never Tobacco Cessation:Counseling Given: Not Answered Alcohol UseStandard Drinks/WeekCommentsNo0 (1 standard drink = 0.6 oz pure alcohol)ChildcareAnswerDate UhfepoapDseyohbkpFmdipwj58/13/2019EmploymentAnswer Date SzgnohvkPkqzfkiksqFyfbpqc25/13/2019Hunger ScreeningAnswerDate Recorded Within the past 12 months we worried whether our food would run out before we got money to buy more.Never True06/25/2024Within the past 12 months the food we bought just didn't last and we didn't have money to get more.Never True 06/25/2024Purpose - LifeAnswerDate RecordedPurpose and direction in lifeUnknown 1CommentsNoSex and Gender InformationValueDate RecordedSex Assigned at BirthNot on fileLegal AnmUhnruy39/13/2017 1:04 PM ESTGender Identity Not on fileSexual OrientationNot on file Last Filed Vital Signs Vital SignReadingTime TakenCommentsBlood Lntenhff737/7002/ 8:43 AM EST Hivqq4483/01/2025 4:13 PM EOWZgjbqtuemfb34.6 ??C (97.9 ??F)06/11/2024 3:28 PM ESTRespiratory Lnkm435706/11/2024 4:13 PM ESTOxygen Molddzxyfr03%06/11/2024 4:13 PM ESTInhaled Oxygen Concentration--Ylptyy12.9 kg (143 lb)06/25/2024 8:43 AM EST Eyivcy171.6 cm (5' 4 )06/25/2024 8:43 AM ESTBody Mass Index24.55006/25/2024 8:43 AM EST Plan of Treatment DateTypeDepartmentCare Team (Latest Contact Info)Ciqovcuqzol50/21/2026 10:30 AM EDTOffice Visit [facility] [address] [place] [address] Sanjuanita Mix MD [address] [place] [address] Health MaintenanceDue DateLast DoneCommentsDepression Qlmjpcuaq51/25/1960 DTaP,Tdap and Td Vaccines (1 - Tdap)12/24/1966Zoster (Shingles) Vaccine (1 of 2) 12/24/1997Fall Risk Ydebcuomy65/25/2013RSV ( or age 60+ yrs) (1 - 1-dose 75+ series)12/24/2022OVID-19 Vaccine (2 - 2024- season)/06/2020 Influenza Sjputoq74/, 05/18/2023, 03/23/2022, Additional history existsTobacco Pgmfyabqg20 Goals GoalPatient Goal TypeAssociated ProblemsRecent ProgressPatient-Stated?Author Improve mobility Patricia Nice, RN Note: Evaluation of progress towards goal: Maximize work with PT at discharge to strengthen L hip Medical Devices ImplantedTypeAreaManufacturerDevice IdentifierShelf Expiration DateModel / Serial / LotShl Actb 50mm Hip 3 Hl Fin Pps - [id number] Implanted:Qty: 1 on 07/13/2017 by [facility] Im[facility]: HipZimmer Ueqyyd02/[id number] / / [id number] Actb G7 Ntrl E1 36mm D - [id number] Implanted:Qty: 1 on 07/13/2017 by Arnoldo [facility]razas [facility] ImplantLeft: HipZimmer [id number] / / [id number] Fem 36mm Opt Shl Actb G7 Bl Rpl 650-1057 - [id number] Implanted:Qty: 1 on 07/13/2017 by Arnoldo [facility]razas [facility] ImplantLeft: HipZimmer Tveqed63/21/[id number] / / [id number] Fem 107.5mm 133d 11 Hi Os - [id number] Implanted:Qty: 1 on 07/13/2017 by Arnoldo Terrazas [facility] at [facility] Im[facility]Left: HipZimmer [id number] / / [id number] Fem Opt -6mm Tpr Hip Blx D Rpl 650-1064 - [id number] Implanted:Qty: 1 on 07/13/2017 by Arnoldo [facility]razas [facility] ImplantLeft: HipZimmer [id number] / / [id number] Insurance Advance Directives * Full Code (Latest Code Status on File) Date ActivatedDate InactivatedComments07/13/2017 11:50 AM07/14/2017 4:05 PM Care Teams Team MemberRelationshipSpecialtyStart DateEnd Date Rodney Hernandez MD PCP - Lmvveqk02/5/17
--- OUTSIDE RECORDS SUMMARY | 2025-04-10 22:49 | XMS_ITS | Clinical Summary ---
Author Organization [facility] Address [address] [place] [address] Care Team Providers Care Electronic Funds Transfer Coordinator Name Role Phone Rodney Hernandez MD Primary Care Provider [phone] Allergies No known active allergies Medications MedicationSigDispense QuantityRefillsLast FilledStart DateEnd DateStatus diclofenac EC [address] tablet 03/02/2021ctive amitriptyline 50 MG tablet 01/06/2021ctive simvastatin 20 MG tablet 01/06/2021ctive lisinopril 10 MG tablet 01/06/2021ctive alendronate 70 MG tablet 02/22/2021ctive Active Problems ProblemNoted DateDiagnosed AsliWufcznci08/17/2021ocalized aoubixyzz37/09/2021 Atrophic skin03/10/2021Thigh pain, musculoskeletal, left01/18/2019Aftercare following left hip joint replacement qxjfsmv1603/09/2018Status post total hip replacement, left09/13/2017Chronic kidney disease, stage 303Dyslipidemia 07/13/2017Essential dmrhldbrjbho98/14/2018Primary osteoarthritis of left hip 04/05/2017Encounter for long-term (current) use of egafarmoizz32/05/2017 Social History Tobacco UseTypesPacks/DayYears UsedDateSmoking Tobacco: NeverSmokeless Tobacco: NeverAlcohol UseStandard Drinks/WeekCommentsNot Currently0 (1 standard drink = 0.6 oz pure alcohol)CommentsUnknownSex and Gender InformationValueDate RecordedSex Assigned at BirthNot on fileLegal TkgTkyxqs04/31/2017 10:11 AM EDT Gender IdentityNot on fileSexual OrientationNot on file Last Filed Vital Signs Vital SignReadingTime TakenCommentsBlood Xplyuber371/8503/ 9:16 AM EDT Kqpkd3413 9:16 AM MROZofbkeoeepr83.4 ??C (97.6 ??F)07/29/2021 9:16 AM EDTRespiratory Rate--Oxygen Saturation--Inhaled Oxygen Concentration--Mluqoq36.7 kg (136 lb)07/29/2021 9:16 AM ZMVLqgals778.6 cm (5' 4 )07/29/2021 9:16 AM EDT Body Mass Index23.34007/29/2021 9:16 AM EDT Plan of Treatment Health MaintenanceDue DateLast DoneCommentsDEXA SCAN ZTLRKFVAXA70/25/1946 HEPATITIS C VIRUS PMREQANUL50/25/0021JHEACQQ34/25/1948TDAP (ADULT)12/24/1966 CERVICAL CANCER SCREENING WJBQEXYKLK08/25/1969MAMMOGRAM SCREENING DISCUSSION 1987COLORECTAL CANCER SCREENING FDGYLXHSEB54/25/1993ZOSTER (SHINGLES) VACCINE (1 of 2)12/24/1997RSV VACCINE (1 - 1-dose 75+ series)3COVID-19 VACCINE (2 - 2024- season)/06/2020INFLUENZA VACCINE (#1)2024 04/09/2020, 02/13/2020, 03/31/2017, Additional history existsPNEUMOCOCCAL VACCINE WOZUQGWbrotgadc05/30/2017, 03/02/2017HEP B VACCINEAged OutNo longer eligible based on patient's age to complete this topic Insurance on file Care Teams Team MemberRelationshipSpecialtyStart DateEnd Rodney Hernandez MD PCP - GeneralFamily Itlctjhu63/9/21
--- OUTSIDE RECORDS SUMMARY | 2025-04-10 22:49 | XMS_ITS | Encounter Summary ---
Author Organization [facility] Address [address] [place] [address] Care Team Providers Care Coreroom Foundry Laborer Name Role Phone Rodney Hernandez MD Primary Care Provider [phone] Encounter Details DateTypeDepartmentCare Team (Latest Contact Info)Hmvorgeahgt91/02/2025amboo flowsheet [facility] [address] [place] [address] Mahi Saba APRN-SQL REPORT DEVELOPER [address] [place] [address] Social History Tobacco UseTypesPacks/DayYears UsedDateSmoking Tobacco: NeverPassive Smoke Exposure: NeverSmokeless Tobacco: NeverAlcohol UseStandard Drinks/WeekComments Never0 (1 standard drink = 0.6 oz pure alcohol)caffeine: noneComments UnknownSex and Gender InformationValueDate RecordedSex Assigned at BirthFemale 10/12/2022 2:42 PM EDTLegal HpiIgnbhk89/15/2023 6:54 PM EDTGender IdentityFemale 10/12/2022 2:42 PM EDTSexual OrientationNot on filedocumented as of this encounter Plan of Treatment DateTypeDepartmentCare Team (Latest Contact Info)Rmumpsccbuk90/04/2026 9:15 AM EDTOffice Visit [facility] [address] [place] [address] Mahi Saba MAIL WEIGHER-SQL REPORT DEVELOPER [address] [place] [address] documented as of this encounter Visit Diagnoses Not on filedocumented in this encounter Care Teams Team MemberRelationshipSpecialtyStart DateEnd Date Rodney Hernandez MD [address] [place] [address] PCP - GeneralFamily Medicine10/13/22documented as of this encounter
--- OUTSIDE RECORDS SUMMARY | 2025-04-10 22:49 | XMS_ITS | Encounter Summary ---
Author Organization [facility] Address [address] [place] [address] Care Team Providers Care Clinical Advisor Name Role Phone Rodney Hernandez MD Primary Care Provider [phone] Encounter Details DateTypeDepartmentCare Team (Latest Contact Info)Ufrkcqbusgo70/02/2025Travel Social History Tobacco UseTypesPacks/DayYears UsedDateSmoking Tobacco: NeverPassive Smoke Exposure: NeverSmokeless Tobacco: NeverAlcohol UseStandard Drinks/WeekComments Never0 (1 standard drink = 0.6 oz pure alcohol)caffeine: noneComments UnknownSex and Gender InformationValueDate RecordedSex Assigned at BirthFemale 10/12/2022 2:42 PM EDTLegal WmmYunqun92/15/2023 6:54 PM EDTGender IdentityFemale 10/12/2022 2:42 PM EDTSexual OrientationNot on filedocumented as of this encounter Plan of Treatment DateTypeDepartmentCare Team (Latest Contact Info)Howjithbiwd53/04/2026 9:15 AM EDTOffice Visit [facility] [address] [facility] [address] [place] [phone] Mahi Saba APRN-TUMBLE TAILSTOCK TURRET LATHE OPERATOR [address] [facility] [address] [place] [address] documented as of this encounter Visit Diagnoses Not on filedocumented in this encounter Care Teams Team MemberRelationshipSpecialtyStart DateEnd Date Rodney Hernandez MD [address] [place] [address] PCP - GeneralFamily Medicine10/13/22documented as of this encounter
[2025-04-10] MEDS: FAMOTIDINE/PF 20 MG/2 ML VIAL IV (22:53)
[2025-04-10] MEDS: 0.9 % SODIUM CHLORIDE 500 ML IV (22:53)
[2025-04-10 23:12] LABS: Hematocrit 42.8 % (36.0-48.0); Hemoglobin 14.6 g/dL (12.0-16.0); Mean Corpuscular HGB Conc 34.1 g/dL (29.9-35.2); Mean Corpuscular Hemoglobin 32.4 pg (26.7-34.0); Mean Corpuscular Volume 95.1 fL (81.0-99.0); Platelet Count 348 10^3/uL (150-450); Red Blood Count 4.50 10^6/uL (4.20-5.40); White Blood Count 16.2 10^3/uL (4.0-11.0)
[2025-04-10 23:25] LABS: Alanine Aminotransferase 26 U/L (14-59); Albumin Globulin Ratio 1.1; Albumin Level 3.8 g/dL (3.4-5.0); Alkaline Phosphatase 68 U/L (46-116); Anion Gap 15.2; Aspartate Amino Transferase 23 U/L (15-37); Blood Urea Nitrogen 41.0 mg/dL (7.0-18.0); Calcium 10.3 mg/dL (8.5-10.1); Carbon Dioxide 27.9 mmol/L (21.0-32.0); Chloride 101 mmol/L (98-107); Estimated GFR (African America 41 (>=60 mL/min/1.73m^2); Estimated GFR (Non-African Ame 34 (>=60 mL/min/1.73m^2); Globulin 3.4 g/dL; Glucose 121 mg/dL (74-106); Lipase 76.0 U/L (16.0-77.0); Potassium 4.1 mmol/L (3.5-5.1); Sodium 140 mmol/L (136-145); Total Protein 7.2 g/dL (6.4-8.2)
--- NOTE | 2025-04-10 23:36 | PC.NURSE ---
this patient awake and alert sitting upright on the bed talking to her male friend, this patient voices nausea is better
[2025-04-10 23:49] LABS: Basophils Abs Manual 0.00 10^3/uL (0.00-0.10); Basophils Percent Manual 0.0 % (0.2-2.0); Eosinophils Absolute Manual 0.00 10^3/uL (0.00-0.70); Eosinophils Percent Manual 0.0 % (0.9-7.0); Lymphocytes Absolute Manual 0.48 10^3/uL (1.20-3.80); Lymphocytes Percent Manual 3.0 % (20.5-60.0); Monocytes Absolute Manual 1.45 10^3/uL (0.30-0.80); Monocytes Percent Manual 9.0 % (1.7-12.0); Segmented Neut Absolute Manual 14.25 10^3/uL (1.4-6.5); Segmented Neutrophils % Manual 88.0 (43.0-75.0)
[2025-04-11] VITALS: BP 129/64; PULSE 83; O2SAT 99
--- NOTE | 2025-04-11 00:10 | ED_ITS ---
HPI HPI - General Adult General Chief complaint: Nausea/Vomiting/Diarrhea Stated complaint: Nausea/Vomiting/Diarrhea Time Seen by Provider: 04/10/25 22:24 History of Present Illness HPI narrative: Patient is a 79-year-old female presenting to the emergency department for evaluation of nausea, vomiting, diarrhea. Patient states that her symptoms started 6 hours ago. She states she has had multiple episodes of vomiting and diarrhea throughout the day today. She denies any significant abdominal pain. She denies chest pain or shortness of breath. She denies fevers or chills. No history of intra-abdominal surgeries. No recent antibiotic use. She denies history of previous LA or stent placement. She states had a left heart catheterization 3 years ago which was normal. Related Data Home Medications ?Medication ?Instructions ?Recorded ?Confirmed alendronate 70 mg tablet mg PO 08/10/23 diclofenac sodium 75 mg mg PO 08/10/23 tablet,delayed release levothyroxine 75 mcg tablet mcg 08/10/23 (Synthroid) lisinopril 10 mg tablet mg 08/10/23 simvastatin 20 mg tablet mg 08/10/23 terbinafine HCl 250 mg tablet mg 08/10/23 pantoprazole 40 mg tablet,delayed mg PO 04/10/25 release Previous Rx's ?Medication ?Instructions ?Recorded ondansetron 4 mg disintegrating 4 mg PO Q8H PRN nausea and 04/11/25 tablet vomiting 5 days #10 tabs Allergies Allergy/AdvReac Type Severity Reaction Status Date / Time No Known Drug Allergies Allergy Verified 04/10/25 22:14 Review of Systems ROS Status of ROS 10 or more systems reviewed and unremark able except as noted in history and below [facility] Medical History (Updated 04/11/25 @ 00:03 by Jerry Ramos DO) Hypothyroidism ?E03.9 - Hypothyroidism, unspecified (ICD-10) Osteoporosis ?M81.0 - Age-related osteoporosis without current pathological fracture (ICD- 10) Social History Little interest or pleasure in doing things: not at all Feeling down, depressed, or hopeless: not at all Exam Narrative Exam Narrative: CONSTITUTIONAL: No acute distress, currently well-appearing and nontoxic, answering questions and following commands appropriately SKIN: Was warm and dry. EYES: Sclerae white. No conjunctival pallor. EARS, NOSE, THROAT: Tacky mucous membranes. RESPIRATORY: Clear to auscultation bilaterally, no wheezes, crackles, or stridor, no use of accessory muscles CARDIOVASCULAR: Normal rate and regular rhythm. There is no S3, S4, murmur, rub. GASTROINTESTINAL: Abdomen is soft, nontender, and nondistended. No rebound tenderness or guarding. MUSCULOSKELETAL: No peripheral edema. NEUROLOGIC: Patient is awake and alert. Facies were symmetrical. Constitutional Vital Signs, click to edit/add: Last Vital Signs Temp 97.6 F 04/10/25 22:14 Pulse 89 04/10/25 22:14 Resp 19 04/10/25 22:14 BP 92/66 04/10/25 22:14 Pulse Ox 100 04/10/25 22:14 O2 Del Method Room Air 04/10/25 22:14 Course Vital Signs Vital signs: Vital Signs Temperature 97.6 F 04/10/25 22:14 Pulse Rate 89 04/10/25 22:14 Respiratory Rate 19 04/10/25 22:14 Blood Pressure 92/66 04/10/25 22:14 Pulse Oximetry 100 04/10/25 22:14 Oxygen Delivery Method Room Air 04/10/25 22:14 Temperature 97.6 F 04/10/25 22:14 Pulse Rate 89 04/10/25 22:14 Respiratory Rate 19 04/10/25 22:14 Blood Pressure 92/66 04/10/25 22:14 Pulse Oximetry 100 04/10/25 22:14 Oxygen Delivery Method Room Air 04/10/25 22:14 Medical Decision Making MDM Narrative Medical decision making narrative: Patient is a 79-year-old female presenting to the emergency department with 6-hour history of nausea, vomiting, diarrhea. Her vital signs on arrival are within normal limits. She is afebrile and hemodynamically stable. Examination as noted above. Differential diagnosis includes viral gastroenteritis, dehydration, atypical presentation for ACS, or associated electrolyte/metabolic derangement. Patient's exam is not consistent with surgical etiologies of abdominal pain such as appendicitis, cholecystitis, or perforated viscus. IV was established and laboratory studies were obtained. She was given 1 L bolus normal saline, IV famotidine, and IV Zofran for symptomatic treatment. 12 Lead EKG: Normal sinus rhythm at a rate of 80. Using Sgarbossa criteria, there are no pathologic ST segment elevations/depressions. Prolonged QRS duration consistent with LBBB. No prior EKG for comparison. Final impression: Sinus rhythm with LBBB. No evidence of acute myocardial ischemia. Laboratory studies were only significant for a mild acute kidney injury, likely related to dehydration from GI losses. No significant electrolyte or metabolic derangement. Mild leukocytosis, likely reactive/secondary to viral gastroenteritis. No anemia or thrombocytopenia. Lipase nonelevated. No transaminitis or hyperbilirubinemia. Troponin nonelevated. On reevaluation, patient states she feels significantly improved. She is tolerating p.o. rehydration. I do believe the patient is stable for discharge. Patient's presentation is most likely consistent with viral gastroenteritis and dehydration. They were instructed to follow up with her PCP as needed. Return precautions were given including any new or worsening symptoms. They were given a prescription for Zofran. Patient understands and agrees to the plan. FINAL IMPRESSION: #Acute viral gastroenteritis #Acute dehydration secondary to above DISPOSITION: Discharged home CONDITION: Good Medical Records Medical records reviewed: Yes I reviewed the patient's medical records Lab Data Lab results reviewed: Yes I reviewed the patient's lab results Labs: Lab Results 04/10/25 Range/Units 22:50 WBC 16.2 H (4.0-11.0) 10^3/uL RBC 4.50 (4.20-5.40) 10^6/uL Hgb 14.6 (12.0-16.0) g/dL Hct 42.8 (36.0-48.0) % MCV 95.1 (81.0-99.0) fL MCH 32.4 (26.7-34.0) pg MCHC 34.1 (29.9-35.2) g/dL RDW 12.0 (11.0-15.0) % Plt Count 348 (150-450) 10^3/uL MPV 8.7 L (9.5-13.5) fL Seg Neuts % (Manual) 88.0 H (43.0-75.0) Lymphocytes % (Manual) 3.0 L (20.5-60.0) % Monocytes % (Manual) 9.0 (1.7-12.0) % Eosinophils % (Manual) 0.0 L (0.9-7.0) % Basophils % (Manual) 0.0 L (0.2-2.0) % Neutrophils # (Manual) 14.25 H (1.4-6.5) 10^3/uL Lymphocytes # (Manual) 0.48 L (1.20-3.80) 10^3/uL Monocytes # (Manual) 1.45 H (0.30-0.80) 10^3/uL Eosinophils # (Manual) 0.00 (0.00-0.70) 10^3/uL Basophils # (Manual) 0.00 (0.00-0.10) 10^3/uL Sodium 140 (136-145) mmol/L Potassium 4.1 (3.5-5.1) mmol/L Chloride 101 (98-107) mmol/L Carbon Dioxide 27.9 (21.0-32.0) mmol/L Anion Gap 15.2 BUN 41.0 H (7.0-18.0) mg/dL Creatinine 1.49 H (0.55-1.02) mg/dL Est GFR ( Amer) 41 L (>=60 mL/min/1.73m^2) Est GFR (Non-Af Amer) 34 L (>=60 mL/min/1.73m^2) BUN/Creatinine Ratio 27.5 Glucose 121 H (74-106) mg/dL Calcium 10.3 H (8.5-10.1) mg/dL Total Bilirubin 0.7 (0.2-1.0) mg/dL AST 23 (15-37) U/L ALT 26 (14-59) U/L Alkaline Phosphatase 68 (46-116) U/L Troponin I High Sens 4.7 (4.0-51.3) pg/mL Total Protein 7.2 (6.4-8.2) g/dL Albumin 3.8 (3.4-5.0) g/dL Globulin 3.4 g/dL Albumin/Globulin Ratio 1.1 Lipase 76.0 (16.0-77.0) U/L ECG Data Attestation: I personally reviewed and interpreted this ECG as follows: Discharge Plan Discharge Chief Complaint: Nausea/Vomiting/Diarrhea Clinical Impression: Gastroenteritis, Dehydration Patient Disposition: Home, Self-Care Time of Disposition Decision: 00:03 Condition: Good Mode of Transportation: Private Vehicle Prescriptions / Home Meds: New ondansetron 4 mg tablet,disintegrating 4 mg PO Q8H PRN (Reason: nausea and vomiting) 5 Days Qty: 10 0RF No Action alendronate 70 mg tablet PO levothyroxine [Synthroid] 75 mcg tablet terbinafine HCl 250 mg tablet simvastatin 20 mg tablet lisinopril 10 mg tablet diclofenac sodium 75 mg tablet,delayed release (DR/EC) PO pantoprazole 40 mg tablet,delayed release (DR/EC) PO Print Language: Nepali Instructions: Dehydration (ED), Enteritis (ED) Referrals: Rodney Hernandez MD [Primary Care Provider, Family Practice] - 1 week
--- NOTE | 2025-04-11 00:15 | PC.NURSE ---
i gave this patient verbal and written discharge orders and this patient voices yes to understanding these. at time of discharge this patient voices no concerns, needs and shows no signs of distress
== END 2025-04-11 00:14 | disposition home or self-care (01) ==
PROVIDERS: Emergency Provider Student in an Organized Health Care Education/Training Program; PCP Family Medicine
DX: E86.0 Dehydration (principal); K52.9 Noninfective gastroenteritis and colitis, unspecified
CPT/HCPCS: 36415; 80053; 83690; 84484; 85007; 85027; 93005; 96361; 96374; 96375; 99284; J2405; J3490

== ENCOUNTER 2025-04-16 11:15 | Outpatient (OUT) | payer MEDICARE, SELFPAY ==
--- OUTSIDE RECORDS SUMMARY | 2025-02-12 04:00 | XMS_ITS ---
Author Organization [facility] [place] Address [address] [place] [address] Care Team Providers Care Physician Allergist Immunologist Name Role Phone Rip Hernandez Primary Care Provider [phone] Diego Carter Unavailable [phone] REASON FOR VISIT 1y EIB Encounters Encounter Location Date Provider Diagnosis Pulmonary Medicine [place] [address] [place] [address] 02/12/2025 Diego Carter Plan Of Treatment Next Appt Details Provider Name:Rip Hernandez, 10:00:00 AM, [address] [place], [address], Progress Notes * Anastasia PONCE LDOB:1945 (79 yo F)Acc No.[id number]:02/12/2025 UNLOCKED PROGRESS NOTE Follow Up Patient: Kamilah DELAROSAtri Ruiz :?Diego Carter DODOB:1945???Age:79 Y ???Sex:FemaleDate:02/12/2025Phone:[phone]:[address] [place] [address]Pcp:Rip Hernandez Subjective: * Chief Complaints: * 1 . 1y EIB. * Medical History: Objective: * Vitals: Assessment: Plan: * Treatment: * * Electronic signature of Diego Carter DO on 04/16/2025 at 11:19 AM ESTSign off status: PendingVisit Status:?OFF CANC (OFFICE CANCEL) * Provider: Giuliana Carter, DO Date: 1 Generated for Printing/Faxing/eTransmitting on:?04/16/2025 11:19 AM EST
--- OUTSIDE RECORDS SUMMARY | 2025-04-02 09:25 | XMS_ITS | Encounter Summary ---
Author Organization [facility] Address [address] [place] [address] Care Team Providers Care Composition Weatherboard Applier Name Role Phone Rodney Hernandez MD Primary Care Provider [phone] Reason for Visit * ReasonCommentsSkin Check Encounter Details DateTypeDepartmentCare Team (Latest Contact Info)Fpaufpgtlmm97/02/2025 9:25 AM ESTOffice Visit [facility] [address] [facility] [address] [place] [phone] Mahi Saba APRN-CNP [address] [facility] [address] [place] [address] Seborrheic keratosis (Primary Dx); Lentigines; Actinic keratosis; Neoplasm of unspecified behavior of bone, soft tissue, and skin Social History Tobacco UseTypesPacks/DayYears UsedDateSmoking Tobacco: NeverPassive Smoke Exposure: NeverSmokeless Tobacco: NeverAlcohol UseStandard Drinks/WeekComments Never0 (1 standard drink = 0.6 oz pure alcohol)caffeine: noneComments UnknownSex and Gender InformationValueDate RecordedSex Assigned at BirthFemale 10/12/2022 2:42 PM EDTLegal FnoKhnpjf35/15/2023 6:54 PM EDTGender IdentityFemale 10/12/2022 2:42 PM EDTSexual OrientationNot on filedocumented as of this encounter Progress Notes * SANDRA Honeycutt - 04/02/2025 9:25 AM EST Images from the original note were not included. Skin Check Location: Patient requests a skin examination from the waist up and left rosario, A full body skin exam was offered, patient declined Dermatologic history: history of Actinic Keratosis, history of Basal Cell Carcinoma, history of Squamous Cell Carcinoma Last visit: Last skin check 6 months ago, last office visit 10/2024 (s/r from excision, BCC on the right breast) Established patient Lesions: Location: left rosario Duration: months Quality: painful Modifying factors: aggravated by shaving Associated symptoms: rough Treatments: none Location # 2: neck Duration: months Quality: denies pain, denies itch, denies bleeding Modifying factors: aggravated by picking Associated symptoms: rough Treatments: none *Patient is currently using Efudex on chest and arms All pertinent medical history, medications, and allergies were reviewed. General Exam: alert, oriented to person, place, and time, normal affect, well appearing Unaccompanied A complete skin exam was offered, pt declined. Areas not examined despite medical recommendation: From the waist down Scalp, Examined , exam limited by hair Head, Face Examined Neck Examined Chest Examined Back Examined Abdomen Examined Right arm Examined Left arm Examined Hands Examined Digits,nails: Examined Lymphatics: Skin Exam 1. SEBORRHEIC KERATOSIS Generalized Stuck on verrucous, variably pigmented papules and plaques. Patient was counseled regarding these benign growths. Removal is normally not necessary, but they may be removed if they are symptomatic or for cosmetic reasons. 2. LENTIGINES Generalized Scattered gupta macules in sun-exposed areas. The patient was informed that lentigines are benign pigmented lesions that occur on sun-exposed andsun-damaged skin. No treatment is necessary. Recommended regular use of broad spectrum sunscreen SPF 30 or higher 3. ACTINIC KERATOSIS Neck - Anterior Erythematous scaly papules Patient was counseled regarding these sun-induced growths that can develop into squamous cell carcinoma if left untreated. Discussed treatment with cryotherapy. It was emphasized that any treated lesions that fail to resolve should be re- evaluated. Cryotherapy performed today; see procedure note Diagnosis: Actinic keratosis Indication: Precancerous Location: see skin exam Consent: Verbal consent was obtained and risks were discussed, including, but not limited to risks of scarring, darker or corporate development officer pigmentary changes, recurrence, incomplete removal and infection. Method: Liquid nitrogen was used to treat the lesion(s) with two 5-10 second freeze-thaw cycles. Number of lesions treated: 1 Post-procedure instructions: Instructions were given orally and in writing. The office will be contacted if the lesion fails to resolve despite treatment, or if a side effect develops such as abnormal crusting, scabbing, redness or tenderness - Cryotherapy, skin lesion - Neck - Anterior Existing Treatments - fluorouracil (Efudex) 5 % cream - Apply to directed areas on upper arms and chest bid x 14 days 4. NEOPLASM OF UNSPECIFIED BEHAVIOR OF BONE, SOFT TISSUE, AND SKIN Left Rosario Hyperkeratotic papule - Lesion biopsy Type of biopsy: tangential Informed [...] details: Photo taken Amount of lidocaine used: 1 cc Specimen A - Dermatopathology exam Differential Diagnosis: SCC vs Other Check Margins: No Size of lesion: 1.0 x 0.9 cm Next Visit: 6 months documented in this encounter Plan of Treatment DateTypeDepartmentCare Team (Latest Contact Info)Ynoutupxigm08/04/2026 9:15 AM EDTOffice Visit [facility] [address] [place] [address] Mahi Saba APRN-CNP [address] [place] [address] NameTypePriorityAssociated DiagnosesOrder ScheduleDermatopathology examPathology and CytologyTimed Neoplasm of unspecified behavior of bone, soft tissue, and skin Release Upon Ordering for 1 Occurrences starting 04/02/2025documented as of this encounter Procedures Procedure NamePriorityDate/TimeAssociated DiagnosisCommentsCRYOTHERAPY SKIN YEAIMWKtjxwcr76/02/2025 9:38 AM EST Actinic keratosis SKIN / NAIL QPFRBBGhwytkc59/02/2025 9:30 AM EST Neoplasm of unspecified behavior of bone, soft tissue, and skin documented in this encounter Results * Cryotherapy, skin lesion (04/02/2025 9:38 AM EST) Narrative Authorizing ProviderResult TypeResult StatusNatmissael Gtz Felter MOLD DESIGNER-CNPDERM PROCEDURE ORDERABLESFinal Result * Lesion biopsy (04/02/2025 9:30 AM EST) Narrative Martin Wade LPN - 04/02/2025 9:30 AM EST Type of biopsy: tangential Informed consent: discussed and consent obtained ?? Informed consent comment: ??The risks and benefits of the biopsy were discussed. Risks include but are not limited to bleeding, infection, scarring, pain, and nerve damage. An opportunity to ask questions prior to the procedure was permitted and all questions were answered. Patient was prepped and draped in usual sterile fashion: area cleansed with alcohol. Anesthesia: the lesion was anesthetized in a standard fashion ?? Anesthetic: ??1% lidocaine w/ epinephrine 1-100,000 buffered w/ 8.4% NaHCO3 Instrument used: DermaBlade ?? Hemostasis achieved with: electrodesiccation ?? Outcome: patient tolerated procedure well ?? Outcome comment: ??The specimen was placed in a prelabeled formalin container to be sent for pathology Post-procedure details: sterile dressing applied and wound care instructions given ?? Post-procedure details comment: ??Emphasized need to contact clinic for any signs of infection, uncontrollable bleeding, or complications. Dressing type: bandage ?? Additional details: ??Photo taken Amount of lidocaine used: 1 cc Authorizing ProviderResult TypeResult StatusNatalieleanor Gtz Felter MOLD DESIGNER-CNPDERM PROCEDURE ORDERABLESFinal Result documented in this encounter Visit Diagnoses Diagnosis Seborrheic keratosis- Primary Lentigines Actinic keratosis Neoplasm of unspecified behavior of bone, soft tissue, and skin documented in this encounter Care Teams Team MemberRelationshipSpecialtyStart DateEnd Date Rodney Hernandez MD [address] [place] [address] PCP - GeneralFamily Medicine10/13/22documented as of this encounter
--- OUTSIDE RECORDS SUMMARY | 2025-04-16 11:18 | XMS_ITS | Clinical Summary ---
Author Organization [facility] Address [address] [place] [address] Care Team Providers Care Brush Machine Setter Name Role Phone Unavailable Primary Care Provider Unavailabl e Social History Tobacco UseTypesPacks/DayYears UsedDateSmoking Tobacco: Never AssessedUT Safety & EnvironmentAnswerDate RecordedFear of Current or Ex-PartnerNot on file 06/23/2023Emotionally AbusedNot on file06/23/2023hysically AbusedNot on file 06/23/2023Sexually AbusedNot on file06/23/2023hysically or Sexually AbusedNot on file06/23/2023CommentsUnknownSex and Gender InformationValueDate RecordedSex Assigned at BirthNot on fileLegal CnsQrgtnr40/29/2022 10:52 PM EDT Gender IdentityNot on fileSexual OrientationNot on file Last Filed Vital Signs Vital SignReadingTime TakenCommentsBlood Xzergesl905/8108 9:45 AM EDT Pulse--Temperature--Respiratory Rate--Oxygen Yxhebujtfh34%12/28/2021 9:45 AM EDT Inhaled Oxygen Concentration--Ucopva82.2 kg (135 lb)12/28/2021 9:43 AM EDTHeight 162.6 cm (5' 4 )12/28/2021 9:39 AM EDTBody Mass Index23.1708 9:39 AM EDT Plan of Treatment Not on file
--- OUTSIDE RECORDS SUMMARY | 2025-04-16 11:18 | XMS_ITS | Clinical Summary ---
Author Organization [facility] Address [address] [place] [address] Care Team Providers Care Nurse Research Name Role Phone Rodney Hernandez MD Primary Care Provider [phone] Allergies No known active allergies Medications MedicationSigDispense QuantityRefillsLast FilledStart DateEnd DateStatus diclofenac EC [address] tablet 03/02/2021ctive amitriptyline 50 MG tablet 01/06/2021ctive simvastatin 20 MG tablet 01/06/2021ctive lisinopril 10 MG tablet 01/06/2021ctive alendronate 70 MG tablet 02/22/2021ctive Active Problems ProblemNoted DateDiagnosed YeofAkhqgujj33/17/2021ocalized zqmtjagsu44/09/2021 Atrophic skin03/10/2021Thigh pain, musculoskeletal, left01/18/2019Aftercare following left hip joint replacement eufrpdl3403/09/2018Status post total hip replacement, left09/13/2017Chronic kidney disease, stage 303Dyslipidemia 07/13/2017Essential /14/2018Primary osteoarthritis of left hip 04/05/2017Encounter for long-term (current) use of vruwtegonsp83/05/2017 Social History Tobacco UseTypesPacks/DayYears UsedDateSmoking Tobacco: NeverSmokeless Tobacco: NeverAlcohol UseStandard Drinks/WeekCommentsNot Currently0 (1 standard drink = 0.6 oz pure alcohol)CommentsUnknownSex and Gender InformationValueDate RecordedSex Assigned at BirthNot on fileLegal FqxRmkifj69/31/2017 10:11 AM EDT Gender IdentityNot on fileSexual OrientationNot on file Last Filed Vital Signs Vital SignReadingTime TakenCommentsBlood Rfosyydz420/8503/ 9:16 AM EDT Nrmte3290 9:16 AM GKIYzmihrfnjko11.4 ??C (97.6 ??F)07/29/2021 9:16 AM EDTRespiratory Rate--Oxygen Saturation--Inhaled Oxygen Concentration--Gvuzua95.7 kg (136 lb)07/29/2021 9:16 AM MKZPliqhu096.6 cm (5' 4 )07/29/2021 9:16 AM EDT Body Mass Index23.34007/29/2021 9:16 AM EDT Plan of Treatment Health MaintenanceDue DateLast DoneCommentsDEXA SCAN IDMLLWMBVV29/25/1946 HEPATITIS C VIRUS CACNEKTSL11/25/3248ZCXWHBQ56/25/1948TDAP (ADULT)12/24/1966 CERVICAL CANCER SCREENING JXEKGZJUMC03/25/1969MAMMOGRAM SCREENING DISCUSSION 1987COLORECTAL CANCER SCREENING SBPWGCWALJ98/25/1993ZOSTER (SHINGLES) VACCINE (1 of 2)12/24/1997RSV VACCINE (1 - 1-dose 75+ series)3COVID-19 VACCINE (2 - 2024- season)/06/2020INFLUENZA VACCINE (#1)2024 04/09/2020, 02/13/2020, 03/31/2017, Additional history existsPNEUMOCOCCAL VACCINE IVRQGHHeobfvbac33/30/2017, 03/02/2017HEP B VACCINEAged OutNo longer eligible based on patient's age to complete this topic Insurance on file Care Teams Team MemberRelationshipSpecialtyStart DateEnd Rodney Hernandez MD PCP - GeneralFamily Prvidecu27/9/21
--- OUTSIDE RECORDS SUMMARY | 2025-04-16 11:18 | XMS_ITS | Clinical Summary ---
Author Organization [facility] Address [id number] [place] [address] Care Team Providers Care Recovery Rn Name Role Phone Rodney Hernandez MD Primary Care Provider [phone] Allergies No known active allergies Medications MedicationSigDispense [...] every morning before breakfast. Take on empty myibhaz7102/24/2024ctive cholecalciferol, vitamin D3, 2,000 units tablet Take [...] left01/18/2019 Aftercare following left hip joint replacement dwvfudl2703/09/2018It band syndrome, left03/09/2018Status post total hip replacement, left09/13/2017Chronic kidney disease, stage Essential mptsamzfyhkt11/14/2018Dyslipidemia 07/13/2017Primary osteoarthritis of left hip04/05/2017Encounter for long-term (current) use of ewknjqolgtg35/05/2017 Resolved Problems ProblemNoted DateDiagnosed DateResolved DateOsteoarthritis of one hip, left Family History Medical HistoryRelationNameCommentsNo Known ProblemsBrotherDiabetesFather ArthritisMotherCOPDMotherHeart diseaseMotherDementiaSisterDiabetesSister Anesthesia problemsNeg HxRelationNameStatusCommentsBrotherAliveFatherDeceased MotherDeceasedSisterDeceased Social History Tobacco UseTypesPacks/DayYears UsedDateSmoking Tobacco: NeverSmokeless Tobacco: Never Tobacco Cessation:Counseling Given: Not Answered Alcohol UseStandard Drinks/WeekCommentsNo0 (1 standard drink = 0.6 oz pure alcohol)ChildcareAnswerDate EovmylxcQnaflnqueAiejagi98/13/2019EmploymentAnswer Date IzqrvdhgFywtbwrmbfXunpcgk61/13/2019Hunger ScreeningAnswerDate Recorded Within the past 12 months we worried whether our food would run out before we got money to buy more.Never True06/25/2024Within the past 12 months the food we bought just didn't last and we didn't have money to get more.Never True 06/25/2024Purpose - LifeAnswerDate RecordedPurpose and direction in lifeUnknown 1CommentsNoSex and Gender InformationValueDate RecordedSex Assigned at BirthNot on fileLegal CqaSghoty23/13/2017 1:04 PM ESTGender Identity Not on fileSexual OrientationNot on file Last Filed Vital Signs Vital SignReadingTime TakenCommentsBlood Jjjvhvvz440/7002/ 8:43 AM EST Nqqej5254/01/2025 4:13 PM XXEMdrzvbalujc59.6 ??C (97.9 ??F)06/11/2024 3:28 PM ESTRespiratory Hxgc644006/11/2024 4:13 PM ESTOxygen Qabihkaqre86%06/11/2024 4:13 PM ESTInhaled Oxygen Concentration--Nijvgp37.9 kg (143 lb)06/25/2024 8:43 AM EST Nzuzbb869.6 cm (5' 4 )06/25/2024 8:43 AM ESTBody Mass Index24.55006/25/2024 8:43 AM EST Plan of Treatment DateTypeDepartmentCare Team (Latest Contact Info)Socgnjdlfou04/21/2026 10:30 AM EDTOffice Visit [facility] [address] [place] [address] Sanjuanita Mix MD [address] [place] [address] Health MaintenanceDue DateLast DoneCommentsDepression Totrbldvw45/25/1960 DTaP,Tdap and Td Vaccines (1 - Tdap)12/24/1966Zoster (Shingles) Vaccine (1 of 2) 12/24/1997Fall Risk Jnhytafev29/25/2013RSV ( or age 60+ yrs) (1 - 1-dose 75+ series)12/24/2022OVID-19 Vaccine (2 - 2024- season)/06/2020 Influenza Sqsnyin60/, 05/18/2023, 03/23/2022, Additional history existsTobacco Qhvbbfmna43 Goals GoalPatient Goal TypeAssociated ProblemsRecent ProgressPatient-Stated?Author Improve mobility Patricia Nice, RN Note: Evaluation of progress towards goal: Maximize work with PT at discharge to strengthen L hip Medical Devices ImplantedTypeAreaManufacturerDevice IdentifierShelf Expiration DateModel / Serial / LotShl Actb 50mm Hip 3 Hl Fin Pps - [id number] Implanted:Qty: 1 on 07/13/2017 by Arnoldo Terrazas MD at [facility]Orthopedic ImplantLeft: HipZimmer [id number]/[id number] / / [id number] Actb G7 Ntrl E1 36mm D - [id number] Implanted:Qty: 1 on 07/13/2017 by Arnoldo Terrazas MD at [facility]Orthopedic ImplantLeft: HipZimmer [id number] / / [id number] Fem 36mm Opt Shl Actb G7 Bl Rpl 650-1057 - [id number] Implanted:Qty: 1 on 07/13/2017 by Arnoldo Terrazas MD at [facility]ENTEROrthopedic ImplantLeft: HipZimmer Lmbbvw02/21/[id number] / / [id number] Fem 107.5mm 133d 11 Hi Os - [id number] Implanted:Qty: 1 on 07/13/2017 by Arnoldo Terrazas MD at [facility]ENTEROrthopedic ImplantLeft: HipZimmer [id number] / / [id number] Fem Opt -6mm Tpr Hip Blx D Rpl 650-1064 - [id number] Implanted:Qty: 1 on 07/13/2017 by Arnoldo Terrazas MD at [facility]Orthopedic ImplantLeft: HipZimmer [id number] / / [id number] Insurance Advance Directives * Full Code (Latest Code Status on File) Date ActivatedDate InactivatedComments07/13/2017 11:50 AM07/14/2017 4:05 PM Care Teams Team MemberRelationshipSpecialtyStart DateEnd Date Rodney Hernandez MD PCP - Toxacyu81/5/17
--- OUTSIDE RECORDS SUMMARY | 2025-04-16 11:19 | XMS_ITS | Patient Health Record ---
Author Organization [facility] in [place] Address [address] [place] [address] Care Team Providers Care Hypoid Gear Tester Name Role Phone Rip Aguirre Primary Care Provider Diego Carter Unavailable [phone] Allergies No Known Allergies Results Component Value Reference Range Notes XR KNEE RT 3V Reviewed date:11/08/2024 06:39:19 PM Interpretation: Performing Lab: Notes/Report: Source Facility: [place] [address] XRay Report Signed Patient: ANASTASIA PONCE MR#: [id number] : 1945 Acct:[id number] Age/Sex: 78 / F ADM Date: 11/08/24 Loc: RAD Attending Dr: Dorcas Aguirre M.D. Ordering Physician: Dorcas Aguirre M.D. Date of Service: 11/08/24 Procedure(s): XR knee RT 3V Accession Number(s): [id number] cc: Dorcas Aguirre M.D. [place] [address] Patient Name: ANASTASIA PONCE MRN: [id number] date: 1945 Sex: F Assigned Patient Location: RAD Current Patient Location: RAD Accession/Order Number: [id number] Exam Date: 11/08/2024 13:13 Report Date: 11/08/2024 [...] Talbot M.D. 11/08/2024 1:15 PM Dictation Location: [place] [address] Electronically authenticated by: [id number] Y Date: 11/08/2024 13:15 Dictated By: Genny Talbot M.D. Signed By: 11/08/24 1318 DD/ 14 TD/TT: Supervisor Packing Room: CBC AUTO DIFF Reviewed date:04/17/2024 12:17:13 PM Interpretation: Performing Lab: Notes/Report: [facility] , White Blood Count 5.3 4.0-11.0 10 3/uL Red Blood Count4.384.20-5.40 10 6/rZLjmhhhrksz17.612.0-16.0 g/kCTmuhvrqsdw69.1 36.0-48.0 %Mean Corpuscular Nllrva06.181.0-99.0 fLMean Corpuscular Hemoglobin 31.126.7-34.0 pgMean Corpuscular HGB Conc32.329.9-35.2 g/dLRed Cell Distribution Width12.211.0-15.0 %Platelet Wvdlu265163-793 10 3/uLMean Platelet Volume8.79.5- 13.5 fLNeutrophils Percent Auto65.543.0-75.0 %Lymphocytes Percent Auto23.520.5- 60.0 %Monocytes Percent Auto7.91.7-12.0 %Eosinophils Percent Auto2.10.9-7.0 % Basophils Percent Auto0.80.2-2.0 %Immature Granulocytes Pct Auto0.20.0-0.5 % Neutrophils Absolute Auto3.51.4-6.5 10 3/uLLymphocytes Absolute Auto1.31.2-3.8 10 3/uLMonocytes Absolute Auto0.40.3-0.8 10 3/uLEosinophils Absolute Auto0.10.0- 0.7 10 3/uLBasophils Absolute Auto0.00.0-0.1 10 3/uLImmature Granulocytes Abs Auto0.010.00-0.03 10 3/uLPerforming Lab:see noteML - [facility] FREE T3 Reviewed date:04/17/2024 12:35:21 PM Interpretation: Performing Lab: Notes/Report: [facility] ,Free T31.722.18-3.98 pg/mLPerforming Lab:see note - [facility] GLYCOHEMOGLOBIN A1C Reviewed date:04/17/2024 12:35:21 PM Interpretation: Performing Lab: Notes/Report: [facility] ,Glycohemoglobin A1C5.74.5-6.2 % > 7.0 ADA THERAPEUTIC TARGET < 7.0 ACTION SUGGESTED ADA RECOMMENDED LIMIT 4.0 - 6.0 Estimated Average Pnlcirw036Blcbaffhnb Lab:see note - [facility] LB IRON Reviewed date:04/17/2024 12:23:08 PM Interpretation: Performing Lab: Notes/Report: [facility] ,Iron71.050.0-170.0 ug/dLPerforming Lab:see note - [facility] LB LIPID PROFILE Reviewed date:04/17/2024 12:35:21 PM Interpretation: Performing Lab: Notes/Report: [facility] ,Ekadjkdonljzp08<=150 mg/yWTjylchonsfv439<=200 mg/dLHDL Liiywfttrbu0533-87 mg/dL > or =60 mg/dl - LOW CARDIOVASCULAR RISK <40 mg/dl - HIGH CARDIOVASCULAR RISK LDL Cholesterol Pvsydwixzf612.0 130-159 mg/dl BORDERLINE HIGH >190 mg/dl VERY HIGH <100 mg/dl OPTIMAL 160-189 mg/dl HIGH 100-129 mg/dl NEAR OR ABOVE OPTIMAL VLDL OCEKUWPAKUD87.4Chol HDL Ratio2.5 7.1 - 11.0 MODERATE RISK >11.0 HIGH RISK 3.3 - 4.4 LOW RISK 4.4 - 7.1 AVERAGE RISK Performing Lab:see noteML - [facility] LBPROF 14(COMP METB) Reviewed date:04/17/2024 12:35:21 PM Interpretation: Performing Lab: Notes/Report: [facility] ,Elenpb128490-637 mmol/LPotassium4.43.5-5.1 mmol/MXixtnbyt29778-038 mmol/LCarbon Svldccl57.221.0-32.0 mmol/LAnion Gap12.4Mkjjcup0939-877 mg/dLBlood Urea Nitrogen 29.07.0-18.0 mg/dLCreatinine1.060.55-1.02 mg/dLEstimated GFR ( Rosa>60 >=60 mL/min/1.73m 2Estimated GFR (Non- Ame50>=60 mL/min/1.73m 2BUN Creatinine Ratio27.7Aanswsu7.38.5-10.1 mg/dLBilirubin Total0.50.2-1.0 mg/dL Aspartate Amino Chclquonbzg5274-03 U/LAlanine Gcxpddbddrokvyai1943-26 U/L Alkaline Zqlxmicbeej4524-866 U/LTotal Protein7.06.4-8.2 g/dLAlbumin Level3.63.4- 5.0 g/dLGlobulin3.4Albumin Globulin Ratio1.1Performing Lab:see note - [facility] LBT4 Reviewed date:04/17/2024 12:35:21 PM Interpretation: Performing Lab: Notes/Report: [facility] ,T4 Thyroxine7.404.80-13.90 ug/dLPerforming Lab:see noteML - [facility] LBTSH Reviewed date:04/17/2024 12:35:21 PM Interpretation: Performing Lab: Notes/Report: [facility] ,Thyroid Stimulating Hormone0.3740.358-3.740 uIU/mLPerforming Lab:see note - [facility] LBVITAMIN D 25 [place] Reviewed date:04/17/2024 12:54:53 PM Interpretation: Performing Lab: Notes/Report: [facility] ,Vitamin D67.8 30-100 ng/mL Vit D sufficient <20 ng/mL Vit D deficient >100 ng/mL Potential Toxicity 20-<30 ng/mL Vit D insufficient Performing Lab:see noteML - [facility] LBMM tomosynthesis screening BI Reviewed date:04/17/2024 04:05:08 PM Interpretation: Performing Lab: Notes/Report: Source Facility: [facility]-[address] [place] [address] [place] [address] Mammography Report Signed Patient: ANASTASIA PONCE MR#: [id number] : 1945 Acct:[id number] Age/Sex: 78 / F ADM Date: 04/17/24 Loc: MAMMO Attending Dr: Jennifer Sumner SHEEP CLIPPER Ordering Physician: Jennifer Sumner NP Results: Date of Service: 04/17/24 Follow Up: Procedure(s): MM tomosynthesis screening BI Accession Number(s): [id number] cc: Dorcas Aguirre M.D.; Jennifer Sumner NP Patient Name: ANASTASIA PONCE MR#: [id number] : 1945 Exam Date: 04/17/2024 Ordering Doctor: [...] Treatments None Family Cancers None LOCATION: [facility] BREAST COMPOSITION: The breasts are heterogeneously [...] Nice M.D. Signed By: 04/17/24 1256 DD/ 54 TD/TT: Supervisor Packing Room: knee RT capri nick Reviewed date:12/11/2024 07:59:19 PM Interpretation: Performing Lab: Notes/Report: Source Facility: [place] [address] Magnetic Resonance Report Signed Patient: ANASTASIA PONCE MR#: [id number] : 1945 Acct:[id number] Age/Sex: 78 / F ADM Date: 12/11/24 Loc: MRI Attending Dr: Dorcas Aguirre M.D. Ordering Physician: Dorcas Aguirre M.D. Date of Service: 12/11/24 Procedure(s): MR knee RT wo con Accession Number(s): [id number] cc: Dorcas Aguirre M.D. [place] [address] Patient Name: ANASTASIA PONCE MRN: [id number] date: 1945 Sex: F Assigned Patient Location: MRI Current Patient Location: MRI Accession/Order Number: [id number] Exam Date: 12/11/2024 11:24 Report Date: 12/11/2024 11:31 At the request of: DORCAS AGUIRRE MD Procedure: MR knee RT wo con EXAMINATION: MRI OF THE RIGHT KNEE CLINICAL DATA: Chronic right knee pain for 5 months. COMPARISON: Right knee 11/08/2024 TECHNIQUE: Multiecho, multiplanar imaging was performed with use of an extremity coil. No contrast was administered. FINDINGS: Suboptimal evaluation due to motion. Joint:Small joint effusion. There is thinning of articular cartilage of the patella suggesting underlying chondromalacia. No definitive bone marrow edema is seen. No definitive fracture is seen. Soft tissues: There appears to be anterior soft tissue swelling. Quadriceps/Patellar tendon/retinaculum: Normal Muscles: Normal ACL:Difficult to visualize due to the motion. A partial tear cannot BE excluded. PCL:Normal Medial Meniscus:Limited evaluation due to motion. A posterior horn tear cannot BE excluded. Lateral Meniscus:Limited evaluation due to motion. No definitive tear is seen. MCL:Normal LCL complex: Normal MR/MR knee RT wo con IMPRESSION: SIGNIFICANTLY LIMITED EXAMINATION DUE TO MOTION. INTERNAL DERANGEMENT CANNOT BE EXCLUDED PARTICULARLY INVOLVING THE POSTERIOR HORN OF THE MEDIAL MENISCUS WELL THE ACL.. SMALL JOINT EFFUSION. Impression dictated by: Gadiel Alexis Jr., D.O. 12/11/2024 11:31 AM Dictation Location: [place] [address] Electronically authenticated by: [id number] Y Date: 12/11/2024 11:31 Dictated By: Gadiel Alexis M.D. Signed By: 12/11/24 1134 DD/ 1131 TD/TT: Supervisor Packing Room:MR knee RT wo con Reviewed date:12/19/2024 05:01:11 PM Interpretation: Performing Lab: Notes/Report: Source Facility: [place] [address] Magnetic Resonance Report Signed Patient: ANASTASIA PONCE MR#: [id number] : 1945 Acct:[id number] Age/Sex: 78 / F ADM Date: 12/19/24 Loc: MRI Attending Dr: Dorcas Aguirre M.D. Ordering Physician: Dorcas Aguirre M.D. Date of Service: 12/19/24 Procedure(s): MR knee RT wo con Accession Number(s): [id number] cc: Dorcas Aguirre M.D. [place] [address] Patient Name: ANASTASIA PONCE MRN: [id number] date: 1945 Sex: F Assigned Patient Location: MRI Current Patient Location: MRI Accession/Order Number: [id number] Exam Date: 12/19/2024 15:57 Report Date: 12/19/2024 16:05 At the request of: DORCAS AGUIRRE MD Procedure: MR knee RT wo con MR knee RT wo con 12/19/2024 3:00 PM SIGNS AND SYMPTOMS: Lateral right knee pain, internal derangement of right knee. PROTOCOL: Multiplanar multisequence MR images of the right knee were obtained without IV contrast COMPARISON: 12/11/2024 FINDINGS: Fluid: There is a small joint effusion. No Roque's cyst.. Medial compartment: Medial meniscus: Intact. Medial collateral ligament: Intact. Medial femoral condyle cartilage: There is partial thickness chondromalacia.. . Medial tibial plateau cartilage: There is partial thickness chondromalacia. Lateral compartment: Lateral meniscus: Intact. Lateral collateral ligament: Intact. Lateral femoral condyle cartilage: There is mild partial thickness chondromalacia. Lateral tibial plateau cartilage: There is mild partial thickness chondromalacia. Posterolateral corner: Popliteus tendon: Intact. Popliteofibular ligament: Intact. Proximal tibiofibular joint: Preserved. Anterior compartment: Alignment: Normal. Quadriceps tendon: Intact. Patellar tendon: Intact. Retinaculum: Medial intact. Lateral intact. Patellar cartilage: There is mild partial thickness chondromalacia. Trochlea: Preserved. . Plica: None. Hoffa fat pad: Normal. Intercondylar compartment: Anterior cruciate ligament: Intact. Posterior cruciate ligament: Intact. Bones (other than subarticular marrow): Normal. Muscles: Normal. Vessels: Normal. Nerves: Normal. MR/MR knee RT wo con IMPRESSION: There is a small joint effusion. No evidence of Roque's cyst. 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 The knee is structurally intact. Impression dictated by: Mac Crowe M.D. 12/19/2024 4:05 PM Dictation Location: [place] [address] Electronically authenticated by: [id number] Y Date: 12/19/2024 16:05 Dictated By: Mac Crowe M.D. Signed By: 12/19/24 1607 DD/ 04 TD/TT: Supervisor Packing Room:ECG 12 lead Reviewed date:04/11/2025 05:43:24 PM Interpretation: Performing Lab: Notes/Report: Source Facility: [facility]-[address] [place] [address] [place] [address] Electrocardiograph Report Signed Patient: ANASTASIA PONCE MR#: [id number] : 1945 Acct:[id number] Age/Sex: 79 / F ADM Date: 04/10/25 Loc: ER Attending Dr: Ordering Physician: Jrery Ramos Date of Service: 04/10/25 Procedure(s): ECG 12 lead Accession Number(s): [id number] cc: [facility] Test Date: 2025-04-10 Pat Name: ANASTASIA PONCE Department: Room: - Gender: Female Hhas: : 1945 Requested By: [id number] Order Number: [id number] Reading MD: JIAN DEAN Measurements Intervals Hinckley Rate: 80 P: 70 PA: 188 QRS: -2 QRSD: 132 T: 124 QT: 410 QTc: 446 Interpretive Statements 1100 Sinus rhythm 2550 Left bundle branch block 9150 abnormal ECG Compared to ECG 11/14/2021 11:27:55 Myocardial infarct finding no longer present Electronically Signed On 04-11-2025 15:52:17 EST by JIAN DEAN Dictated By: Jian Dean M.D. Signed By: 04/11/25 1552 DD/ 2241 TD/TT: Supervisor Packing Room:Troponin I High Sensitivity Reviewed date:04/11/2025 12:50:37 PM Interpretation: Performing Lab: Notes/Report: [facility] ,Troponin I High Sensitivity4.74.0-51.3 pg/mL 99TH PERCENTILE = 51.4 PG/ML PERCENTILE OF cTnI DISTRIBUTION IN A REFERENCE POPULATION, USED IN ISOLATION BUT SHOULD BE INTERPRETED IN CONJUNCTION UNIVERSAL DEFINITION OF MYOCARDIAL INFARCTION. THE UPPER WITH OTHER DIAGNOSTIC AND CLINICAL INFORMATION. HAS BEEN CONFIRMED THE DECISION THRESHOLD FOR NH CUT-OFF POINTS HAVE BEEN ESTABLISHED BASED ON THE FOURTH NOTE: HIGH-SENSITIVITY TROPONIN ASSAY IS NOT INTENDED TO BE REFERENCE LIMIT (URL) OF TROPONIN, DEFINED THE 99TH DIAGNOSIS. Performing Lab:see noteML - [facility] LBPROF 14(COMP METB) Reviewed date:04/11/2025 12:50:37 PM Interpretation: Performing Lab: Notes/Report: [facility] ,Kcofba290993-698 mmol/LPotassium4.13.5-5.1 mmol/JNqlcnzzz53510-771 mmol/LCarbon Fpbsbtl98.921.0-32.0 mmol/LAnion Gap15.5Bkgsmgk88474-701 mg/dLBlood Urea Yienbwtu70.07.0-18.0 mg/dLCreatinine1.490.55-1.02 mg/dLEstimated GFR ( Qocthdf93>=60 mL/min/1.73m 2Estimated GFR (Non- Ame34>=60 mL/min/1.73m 2 BUN Creatinine Ratio27.1Esmrebz18.38.5-10.1 mg/dLBilirubin Total0.70.2-1.0 mg/dL Aspartate Amino Rvgywnxoaqg3306-52 U/LAlanine Yirzzabgucaxttju6886-21 U/L Alkaline Iyvzyjurhee5541-721 U/LTotal Protein7.26.4-8.2 g/dLAlbumin Level3.83.4- 5.0 g/dLGlobulin3.4Albumin Globulin Ratio1.1Performing Lab:see noteML - [facility] LBLIPASE Reviewed date:04/11/2025 12:50:37 PM Interpretation: Performing Lab: Notes/Report: [facility] ,Mqbfuy77.016.0-77.0 U/LPerforming Lab:see noteML - [facility] LBCBC AUTO DIFF Reviewed date:04/11/2025 12:50:37 PM Interpretation: Performing Lab: Notes/Report: [facility] ,White Blood Count16.24.0-11.0 10 3/uLRed Blood Count4.504.20-5.40 10 6/uL Gljkqezbxi54.612.0-16.0 g/fOWrtedwxwun42.836.0-48.0 %Mean Corpuscular Lusyim88.1 81.0-99.0 fLMean Corpuscular Dmhihtvosj19.426.7-34.0 pgMean Corpuscular HGB Conc 34.129.9-35.2 g/dLRed Cell Distribution Width12.011.0-15.0 %Platelet Gzhgx563 150-450 10 3/uLMean Platelet Volume8.79.5-13.5 fLPerforming Lab:see noteML - [facility] LBXR hip RT min 2V Reviewed date:01/19/2025 03:26:34 PM Interpretation: Performing Lab: Notes/Report: Source Facility: [place] [address] XRay Report Signed Patient: ANASTASIA PONCE MR#: [id number] : 1945 Acct:[id number] Age/Sex: 79 / F ADM Date: 01/18/25 Loc: RAD Attending Dr: Dorcas Aguirre M.D. Ordering Physician: Dorcas Aguirre M.D. Date of Service: 01/18/25 Procedure(s): XR hip RT min 2V Accession Number(s): [id number] cc: Dorcas Aguirre M.D. [place] [address] Patient Name: ANASTASIA PONCE MRN: [facility]:[id number] date: 1945 Sex: F Assigned Patient Location: [facility] Current Patient Location: [facility] Accession/Order Number: [id number] Exam Date: 01/18/2025 13:10 Report Date: 01/18/2025 18:31 At the request of: DORCAS AGUIRRE MD Procedure: XR hip RT min 2V RIGHT HIP - 2 views: CLINICAL HISTORY: Acute Right Hip Pain COMPARISON: None FINDINGS: Severe degenerative changes right hip. No fracture dislocation. Mild degenerative changes right sacral joint. Moderate stool burden. XR/XR hip RT min 2V IMPRESSION: NO ACUTE BONY INJURY. SEVERE DEGENERATIVE CHANGES RIGHT HIP. Impression dictated by: Nirmal Hogue M.D. 01/18/2025 6:31 PM Dictation Location: [place] [address] Electronically authenticated by: [id number] Y Date: 01/18/2025 18:31 Dictated By: Nirmal Hogue M.D. Signed By: 01/18/251833 DD/ 30 TD/TT: Supervisor Packing Room: Reason For Referral Diagnosis 1 Right knee pain (M25 .561) Referral Organization [facility] Referring Provider First Name Rip Referring Provider Last Name Mary Referring Provider Speciality [facility] ana Referred Provider [facility], Physical Therap y Referred Provider Specialty Physical The rapist Referral Priority Routine Diagnosis 1 Arthritis of knee, r ight (M19.90) Referral Organization [facility] Referring Provider First Name Rip Referring Provider Last Name Mary Referring Provider Speciality [facility] ana Referred Provider Specialty Orthopedic S urgery Referral Priority Routine Medications Medication SIG (Take, Route, Frequency, Duration) Notes Start Date End Date Status Semaglutide MED SHOPPEActiveProtonix 40 MG1 tablet Orally Once a day; Duration: 90 days 04/17/2024ctiveSimvastatin 20 MGTAKE 1 TABLET BY MOUTH ONCE DAILY IN THE EVENING; Duration: 90ActiveMontelukast Sodium 10 MG1 tablet Orally Once a day; Duration: 90 daysActiveLisinopril 20 MGTake 1 tablet by mouth once daily; Duration: 90ActiveOndansetron 4 MG1 tablet on the tongue and allow to dissolve Orally qid5ActiveoxyCODONE HCl 5 MG2 tablet as needed Orally every 6 hrs; Duration: 7 days5ActiveDiclofenac Sodium 75 MGTake 1 tablet by mouth twice daily; Duration: 90 daysActiveAlbuterol Sulfate HFA 108 (90 Base) MCG/ACT2 puffs as needed for SOB Inhalation Q4H; Duration: 30 days01/18/2023 Not-TakingCytomel 5 MCG1 tablet on an empty stomach Orally Once a day; Duration: 30 days4ActiveVitamin B Plus+ActiveHYDROcodone-Acetaminophen 5-325 MG 1-2 tablet as needed Orally every 6 hrs; Duration: 7 days M23.90 5ActiveFluorouracil 5 %APPLY SMALL AMOUNT TO AFFECTED AREA TWICE DAILY FOR 14 DAYS; Duration: 14ActiveLevothyroxine Sodium 75 MCGTAKE 1 TABLET BY MOUTH EVERY DAY IN THE MORNING ON EMPTY STOMACH; Duration: 90ActiveAmitriptyline HCl 50 MGTAKE 1 & 1/2 (ONE & ONE-HALF) TABLETS BY MOUTH AT BEDTIME; Duration: 60 daysActive Immunizations Vaccine Route Administration Date Status Comme nts Flu, Fluad (13291) 65 yrs+, single-dose syringe () Unknown 03/17/2022 Administered Flu, Fluad (21933) 65 yrs+, single-dose syringe (3502-8118)Guiftjd8605/18/2023 AdministeredPneumococcal (Pneumovax 23)Ijnkbmc6403/31/2017AdministeredPneumococcal (Prevnar 13)Dkzsxnj7703/02/20179292SkviffwlpvurDHIO-ETB-6 (COVID 19 Pfizer 30mcg/0.3mL)Sbdzcoc60/02/2021Administered Social History Tobacco Use: Social History Observation Description Date Details (start date - stop date) Never Smoker NA - NA Tobacco Use/Smoking Question Answer Notes Patient is a nonsmoker Alcohol Screen (Audit-C) Question Answer Notes Did you have a drink containing alcohol in the p ast year? Yes How often did you have 6 or more drinks on one occasion in the past year?Never (0 point)How many drinks did you have on a typical day when you were drinking in the past year?1 or 2 drinks (0 point)How often did you have a drink containing alcohol in the past year?Less than monthly (1 point)Jwjzjb5Uahzfwudtnbhdm NegativeTobacco Control (Standard) Question Answer Notes Tobacco use: Nonsmoker AUDIT-C (Standard) Question Answer Notes Did you have a drink containing alcohol in the p ast year? 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) ActiveconfirmedProblemPostnasal drip (77120726)Postnasal drip (R09.82)Active confirmedProblemHypertension (67943347)Hypertension (I10)ActiveconfirmedProblem Asthma (515663394)Asthma (J45.909)ActiveconfirmedProblemGastroesophageal reflux disease (593367583)GERD (gastroesophageal reflux disease) (K21.9)Activeconfirmed ProblemHypothyroid (26385625)Hypothyroid (E03.9)ActiveconfirmedProblemArthritis (9288487)Arthritis (M19.90)ActiveconfirmedProblemOsteopenia (804036585) Osteopenia (M85.80)ActiveconfirmedProblemArthritis of right knee (9960107829900699)Arthritis of knee, right (M19.90)ActiveconfirmedProblem Derangement of knee (01547017)Knee internal derangement, 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)Activeconfirmed Vital Signs Blood pressure diastolic 72 mm Hg 12/21/2024 Zbrdtk04 in12/21/2024lood pressure sztmelko100 mm Hg12/21/20249233Thxfoo140.6 lbs 12/21/2024BMI22.07 kg/m212/21/2024 Encounters Encounter Location Date Provider Diagnosis [facility] [address] [place] [address] 12/17/2024 Rip Hoy Knee internal derangement, unspecified laterality M23.90 [facility] [address] [place] [address] 11/08/2024 Rip Hoy Knee internal derangement, unspecified laterality M23.90 [facility] [address] [place] [address] 12/21/2024 Rip Hoy Knee internal derangement, unspecified laterality M23.90 [facility] [address] [place] [address] 04/17/2024 Rip Hoy Hypothyroid E03.9 ; Arthritis M19.90 ; Hypertension I10 ; Osteopenia M85.80 and GERD (gastroesophageal reflux disease) K21.9 [facility] [address] [place] [address] 04/11/2025 Rip Hoy [facility] [place] [address] 12/13/2024Doug HoyKnee internal derangement, unspecified laterality M23.90 [facility] [place] [address]/20/2025 [facility] [place] [address]/20/2025Doug HoyArthritis of knee, right M19.90[facility] [place] [address]/18/2025Doug HoyKnee internal derangement, unspecified laterality M23.90 and Hip pain, acute, right M25.551 [facility] [facility] [place] [address] 01/19/2025Doug [facility] [facility] [place] [address]/Doug HoyHypothyroid E03.9 ; Hypertension I10 ; Arthritis M19.90 and Elevated glucose R73.09[facility] [facility] [place] [address]/01/2025Doug [facility] [address] [facility] [place] [address]/03/2025Doug [facility] [facility] [place] [address]/03/2025Doug [facility] [facility] [place] [address] 11/21/2024Doug HoyRight knee pain M25.561[facility] [facility] [place] [address]/04/2025Doug [facility] [facility] [place] [address]/Doug [facility] [facility] [place] [address]/ Rip [facility] [facility] [place] [address] 05/28/2024Doug [facility] [place] [address]/Doug [facility] [facility] [place] [address]/Doug HoyHypothyroid E03.9BN[facility] [facility] [place] [address]/Doug [facility] [place] [facility] [place] [address]/ Rip [facility] [facility] [place] [place] [address]/oug HoyHypothyroid E03.9BNorth [facility] [facility] [place] [address]/oug HoyBNorth [facility] [facility] [place] [address]/oug Hoy Assessments Encounter Date Diagnosis (ICD Code) Assessment Notes Treatment Notes Treatment Clinical Notes Section Notes 11/08/2024 Knee internal derangement, unspe cified laterality (ICD-10 - M23.90) 12/17/2024Kn internal derangement, unspecified laterality (ICD-10 - M23.90) hydocodone not effective - inc to fmzjixjah63/22/2025Kn internal derangement, unspecified laterality (ICD-10 - M23.90)04/17/2024Hypothyroid (ICD-10 - E03.9) 07/25/2024Hypothyroid (ICD-10 - E03.9)11/21/2024Right knee pain (ICD-10 - M25.561)12/13/2024Kn internal derangement, unspecified laterality (ICD-10 - M23.90)12/19/2024rthritis of knee, right (ICD-10 - M19.90)01/17/2025Knee internal derangement, unspecified laterality (ICD-10 - M23.90)03/22/2025 Hypertension (ICD-10 - I10)03/22/2025Hypothyroid (ICD-10 - E03.9)04/17/2024 Hypothyroid (ICD-10 - E03.9)04/17/2024rthritis (ICD-10 - M19.90)03/22/2025 Arthritis (ICD-10 - M19.90)01/17/2025Hip pain, acute, right (ICD-10 - M25.551) 04/17/2024Hypertension (ICD-10 - I10)04/17/2024Osteopenia (ICD-10 - M85.80) 03/22/2025Elevated glucose (ICD-10 - R73.09)04/17/2024GERD (gastroesophageal reflux disease) (ICD-10 - K21.9)if not better on protonix - needs EGD Plan Of Treatment Pending Test Test Name Order Date X ray : Hip, right 01/17/2025 CMP (COMPLETE METABOLIC PANEL) 3 CMP (COMPLETE METABOLIC PANEL) 4 HEMOGLOBIN A1C (GLYCO) 04/17/2024 HEMOGLOBIN A1C (GLYCO) 04/12/2023 IRON, TOTAL 04/12/2023 IRON, TOTAL 04/17/2024 LIPID PANEL (CHOL/TRIG/HDL/LDL) 04/17/20 24 LIPID PANEL (CHOL/TRIG/HDL/LDL) 04/12/20 23 CBC WITH DIFF (EXP 03/2025) 04/12/2023 CBC WITH DIFF (EXP 03/2025) 04/17/2024 VITAMIN D, 25 LEVEL (TOTAL) 04/17/2024 VITAMIN D, 25 LEVEL (TOTAL) 04/12/2023 DEXA Axial Skeleton (hips, pelvis, spine )* 06/03/2023 T3 FREE, T4 FREE and TSH 04/12/2023 Insulin Level 04/12/2023 COMPREHENSIVE METABOLIC PROFILE WITH GFR 03/22/2025 OCCULT BLOOD, FECAL, IMMUNOASSAY 025 CBC W/AUTO DIFF 03/22/2025 GLYCOHEMOGLOBIN A1C 03/22/2025 THYROID PROFILE WITH TSH 08/01/2023 MRI KNEE RT WO CON 12/13/2024 MRI KNEE RT WO CON 11/08/2024 THYROID PANEL (T4/TSH/FREE T3) 4 THYROID PANEL (T4/TSH/FREE T3) 3 THYROID PANEL (T4/TSH/FREE T3) 5 THYROID PANEL (T4/TSH/FREE T3) 4 THYROID PANEL (T4/TSH/FREE T3) 4 Vitamin D 03/22/2025 Lipid Panel 03/22/2025 Next Appt Details Provider Name:Rip Aguirre, 10:00:00 AM, [address], [address] [place], [place], [address], Insurance Providers Payer Name Payer Address Payer Phone Subscriber Number Group Number Insured Name Patient Relationship to Insured Coverage Start Date Coverage End Date A[employer] MEDICARE [address] [place], [place] [phone] [id number] Salma Ponce - patient is the [id number] 2022 Medical (General) History Medical History History ICD Code Exercise induced bronchospasm J45.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
--- OUTSIDE RECORDS SUMMARY | 2025-04-16 11:19 | XMS_ITS | Encounter Summary ---
Author Organization [facility] Address [address] [place] [address] Care Team Providers Care Hematology Nurse Educator Name Role Phone Rodney Hernandez MD Primary Care Provider [phone] Encounter Details DateTypeDepartmentCare Team (Latest Contact Info)Xuiyjlnfgsp40/02/2025Travel Social History Tobacco UseTypesPacks/DayYears UsedDateSmoking Tobacco: NeverPassive Smoke Exposure: NeverSmokeless Tobacco: NeverAlcohol UseStandard Drinks/WeekComments Never0 (1 standard drink = 0.6 oz pure alcohol)caffeine: noneComments UnknownSex and Gender InformationValueDate RecordedSex Assigned at BirthFemale 10/12/2022 2:42 PM EDTLegal FwtLcdzta17/15/2023 6:54 PM EDTGender IdentityFemale 10/12/2022 2:42 PM EDTSexual OrientationNot on filedocumented as of this encounter Plan of Treatment DateTypeDepartmentCare Team (Latest Contact Info)Tuvmegqlmfy55/04/2026 9:15 AM EDTOffice Visit [facility] [address] [facility] [address] [place] [phone] Mahi Saba APRN-CONSULTING SERVICES PROJECT MANAGER [address] [facility] [address] [place] [address] documented as of this encounter Visit Diagnoses Not on filedocumented in this encounter Care Teams Team MemberRelationshipSpecialtyStart DateEnd Date Rodney Hernandez MD [address] [place] [address] PCP - GeneralFamily Medicine10/13/22documented as of this encounter
--- OUTSIDE RECORDS SUMMARY | 2025-04-16 11:19 | XMS_ITS | Encounter Summary ---
Author Organization [facility] Address [address] [place] [address] Care Team Providers Care Wood Hacker Name Role Phone Rodney Hernandez MD Primary Care Provider [phone] Encounter Details DateTypeDepartmentCare Team (Latest Contact Info)Mgjdglpwxiy21/02/2025amboo flowsheet [facility] [address] [place] [address] Mahi Saba APRN-CHAMBER OF [employer] DIVISION MANAGER [address] [place] [address] Social History Tobacco UseTypesPacks/DayYears UsedDateSmoking Tobacco: NeverPassive Smoke Exposure: NeverSmokeless Tobacco: NeverAlcohol UseStandard Drinks/WeekComments Never0 (1 standard drink = 0.6 oz pure alcohol)caffeine: noneComments UnknownSex and Gender InformationValueDate RecordedSex Assigned at BirthFemale 10/12/2022 2:42 PM EDTLegal CcqAshgiw76/15/2023 6:54 PM EDTGender IdentityFemale 10/12/2022 2:42 PM EDTSexual OrientationNot on filedocumented as of this encounter Plan of Treatment DateTypeDepartmentCare Team (Latest Contact Info)Septtdpzzmv82/04/2026 9:15 AM EDTOffice Visit [facility] [address] [place] [address] Mahi Saba MANAGER SHOP-CHAMBER [employer] DIVISION MANAGER [address] [place] [address] documented as of this encounter Visit Diagnoses Not on filedocumented in this encounter Care Teams Team MemberRelationshipSpecialtyStart DateEnd Date Rodney Hernandez MD [address] [place] [address] PCP - GeneralFamily Medicine10/13/22documented as of this encounter
--- OUTSIDE RECORDS SUMMARY | 2025-04-16 11:19 | XMS_ITS | Clinical Summary ---
Author Organization [facility] Address [address] [place] [address] Care Team Providers Care Engineering Mgr Name Role Phone Rodney Hernandez MD Primary Care Provider [phone] Allergies No known active allergies Medications MedicationSigDispense [...] DateAge-related nuclear cataract of left eye 10/13/2022Retinitis afbedcftok05/14/2023ry eyes10/13/2022seudophakodonesis 10/13/2022 Encounters DateTypeDepartmentCare QkkdQolfwwojfcf41/02/2025 9:25 AM ESTOffice Visit [facility] [address] [place] [address] Mahi Saba APRN-CNP Seborrheic keratosis (Primary Dx); Lentigines; Actinic keratosis; Neoplasm of unspecified behavior of bone, soft tissue, and skin04/02/2025amboo flowsheet [facility] [address] [place] [address] Mahi Saba APRN-CNP 04/02/2025Travelfrom Last 3 Months Family History Medical HistoryRelationNameCommentsDiabetesFatherGlaucomaFatherCataractsMother DiabetesMotherHeart diseaseMotherStrokeMotherMelanomaNeg HxRelationNameStatus CommentsFatherDeceasedMotherDeceased Social History Tobacco UseTypesPacks/DayYears UsedDateSmoking Tobacco: NeverPassive Smoke Exposure: NeverSmokeless Tobacco: Never Tobacco Cessation:Counseling Given: No Alcohol UseStandard Drinks/WeekCommentsNever0 (1 standard drink = 0.6 oz pure alcohol)caffeine: noneCommentsUnknownSex and Gender InformationValueDate RecordedSex Assigned at MsbxoHsbmpp55/13/2023 2:42 PM EDTLegal SexFemale 07/14/2022 6:54 PM EDTGender RozariynSjofpr95/13/2023 2:42 PM EDTSexual OrientationNot on file Last Filed Vital Signs Vital SignReadingTime TakenCommentsBlood Ijkwwpav402/66010/13/2022 2:49 PM EDTNo latex allergy, no PM or DF, no nljjcoHovci7072/14/2023 2:49 PM EDTTemperature-- Respiratory Rate--Oxygen Saturation--Inhaled Oxygen Concentration--Weight-- Djczqq025.6 cm (5' 4 )04/14/2022 12:00 PM ESTBody Mass Index-- Plan of Treatment DateTypeDepartmentCare Team (Latest Contact Info)Qvqitgelhjs97/04/2026 9:15 AM EDTOffice Visit [facility] [address] [place] [address] Mahi Saba APRN-CNP [address] [place] [address] Health MaintenanceDue DateLast DoneCommentsCOVID-19 Vaccine ( season) /06/2020Influenza Vaccine (#1)501/, 05/18/2023, 03/23/2022, Additional history existsPneumococcal Vaccine: 65+ YearsCompleted 03/31/2017, 03/02/2017 Procedures Procedure NamePriorityDate/TimeAssociated DiagnosisCommentsCRYOTHERAPY SKIN WGZLZAZjnkjgu34/02/2025 9:38 AM EST Actinic keratosis SKIN / NAIL YDKSMXVzdtgfr63/02/2025 9:30 AM EST Neoplasm of unspecified behavior [...] cc Authorizing ProviderResult TypeResult StatusNatalie A Felter DISTRIBUTION TRANSFORMER ASSEMBLER-CNPDERM PROCEDURE ORDERABLESFinal Result from Last 3 Months Insurance Care Teams Team MemberRelationshipSpecialtyStart DateEnd Rodney Hernandez MD [address] [place] [address] PCP - GeneralFamily Medicine10/13/22
--- OUTSIDE RECORDS SUMMARY | 2025-04-16 11:21 | XMS_ITS | Patient Health Record ---
Author Organization [facility] Address [address] [place], [place] [address] Care Team Providers Care Patient Safety Officer Name Role Phone Jennifer Sumner Unavailable [phone] Allergies No Known Allergies Reason For Referral No Information Medications Medication SIG (Take, Route, Frequency, Duration) Notes Start Date End Date Status Vitamin D 50 MCG (1999) Capsule 1 capsule Ora lly Once a day ActiveMontelukast Sodium 10 MG TabletOral; Duration: 30 DaysActiveLevothyroxine Sodium 75 MCG Tablet1 tablet in the morning on an empty stomach Oral Once a day; Duration: 30 daysSynthroidActiveAmitriptyline HCl 50 MG Tablet1 tablet at bedtime Oral Once a day; Duration: 90 daysActiveDiclofenac Sodium 75 MG Tablet Delayed ReleaseOral; Duration: 90 DaysActive Social History Tobacco Use: Social History Observation Description Date Details (start date - stop date) Never Smoker NA - NA Sex Assigned At : Social History Observation Description Sex Assigned At Female Social History Social DeterminantsSocial InfoQuestionAnswerNotesPRAPAREDate Completed/Updated: 12/29/2022patient entered dataWhat is your current housing situation?I have housingpatient entered dataAre you worried about losing your housing?No patient entered dataWhat is the highest level of school that you have finished?More than high schoolpatient entered dataWhat is your current work situation?Otherwise unemployed but not seeking work (ex. 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 Check all that applyI do not have problems meeting my needsHas lack of transportation kept you from medical appointments, meetings, work or from getting things needed for daily living?NoHow often do you see or talk to people that you care about and feel close to? (For example: talkingto friends on the phone, visiting friends or family, going to yazdanism or club meetings)More than 5 times a weekpatient entered dataHow stressed are you? Stress is when someone feels tense, nervous, anxious, or can't sleep at nightbecause their mind is troubledA little bitpatient entered dataIn the past year have you spent more than 2 nights in a row in a fpc, long term, fpc center, orjuvenile correctional facility?Nopatient entered dataAre you a refugee?Nopatient entered dataWhat country are you from?[place] patient entered dataDo you feel physically and emotionally safe where you currently live?Yespatient entered dataIn the past year, have you been afraid of your partner or ex-partner?Nopatient entered dataPRAPARE Score:3PCMH and UDS DemographicsSocial InfoQuestionAnswerNotesPriBarnes-Jewish Hospital [facility] QuestionsDo you have any barriers to learning?Nonepatient entered dataWhat is your preferred method of learning?Readingpatient entered dataHow often do you need to have someone help you read instructions?Neverpatient entered data Drugs/Alcohol/Caffeine:Social InfoQuestionAnswerNotesDrugsHave you used drugs other than those for medical reasons in the past 12 months?NoCAGE-AID Questionnaire (2018 Edition)Have you ever felt that you ought to cut down on your drinking or drug use?Nopatient entered dataHave people annoyed you by criticizing your drinking or drug use?Nopatient entered dataHave you ever felt bad or guilty about your drinking or drug use?Nopatient entered dataHave you ever had a drink or used drugs first thing in the morning to steady your nerves or to get rid of a hangover?Nopatient entered dataCAGE-AID Score0 InterpretationNegativeCaffeineIntake:noneTobacco Use:Social InfoQuestionAnswer NotesTobacco Use/SmokingTobacco use:nonsmokerpatient entered dataAdditional DetailsCategorySocial InfoOptionsDetailsMiscellaneous:Culture/Language BarrierNo Barriers to LearningNoneHow often do you need to have someone help you read instructionsNeverSafetyPatient feels safe in relationshipsYes Drugs/Alcohol/Caffeine:Do you smoke marijuana?DeniesDo you drink alcohol? Socially Problems Problem Type SNOMED Code ICD Code Onset Dates Problem Status W/U Status Risk Notes Problem Human papilloma viru s deoxyribonucleic acid test positive, high risk on vaginal specimen (342319329820986) Cervical high risk human papillomavirus (HPV) DNA test positive (R87.810) ActiveconfirmedProblemDepression screening (045248081)Screening for depression (Z13.31)ActiveconfirmedDescription:Depression screenProblemHistory of abnormal cervical Papanicolaou smear (264829804)History of abnormal cervical Pap smear (Z87.42)Activeconfirmed Comment:pt had recurrent cervical dysplasia, underwent cone/leep [...] HPV was done today as per recommendation. ProblemMenopausal hot flushes (273241771)Menopausal hot flushes (N95.1)Active confirmed Comment:discussed options of hrt, ssri, gabapentin, pt declines will try herbal supplementation for now, ProblemAtypical squamous cells of uncertain significance, probably benign (morphologic abnormality) (433001508)ASCUS favor benign (796.9)Activeconfirmed Comment:repeat pap in 6 months,Story:hpv neg,ProblemAbnormal mammogram (872190651)Abnormal mammogram (R92.8)ActiveconfirmedComment:2 new circumscribed lesions seen in upper right breast, recommended diagnostic right mammo,and right breast US,ProblemVaginal dryness (56998982)Vaginal dryness, menopausal (N95.1) ActiveconfirmedComment:pt to use coconut oil, replens,ProblemAtypical squamous cells of undetermined significance on cervical Papanicolaou smear (805785958) ASCUS with positive high risk HPV cervical (R87.610)Activeconfirmed Comment:- Patient here to discuss colposcopy results. - Reviewed colposcopy results and pathology findings. Colposcopy was negative for dysplasia and thethree cervical biopsies were negative for dysplasia, ans so was ECC, also negative. - Recommended repeat Pap with cotesting in 1 years - All patients questions were answered., ProblemRoutine gynecologic examination (386309718)Encounter for annual routine gynecological examination (Z01.419)ActiveconfirmedProblemVaginal dryness (66471199)Vaginal dryness (N89.8)Activeconfirmed Asymptomatic at the present time as patient is not currently sexually active. Pt to use lubricants, olive oil, coconut oil, as needed ProblemCervical smear - inadequate specimen (349209723)Encounter for repeat Papanicolaou smear of cervix due to previous unsatisfactory results (R87.615) Activeconfirmed Comment:- Extensive history of cervical dysplasia and LEEP or possibly a cone at [facility] driller portable/onc. Willtry to obtain records. Patient then had a period of normal Paps with negative HPV until most recently where Pap was unsatisfactory with Positive HPV. Pap report requested from previous Psychiatric Nursing Assistant. - Will call patient with results and manage accordingly., Plan Of Treatment Pending Test Test Name Order Date ThinPrep Pap Test, Image-Guided (40351) 02/03/2015 Insurance Providers Payer Name Payer Address Payer Phone Subscriber Number Group Number Insured Name Patient Relationship to Insured Coverage Start Date Coverage End Date Aetna Medicare [address] [address] [place] [address] [id number] [place] Anastasia Ponce Self - patient is the insured Medical [facility] [address] [address] [place] [phone] [id number], CathySelf - patient is the [id number] 2012 2013 Medical (General) History Medical History History ICD Code Anxiety ArthritisCervical dysplasiaHerpes ZosterHYPERTENSIONOsteoporosisSurgical History Surgery Date(Month/Year) CO2 laser of cervix and vagi na 01/17/2012, COMMENTS: follow up pap 01/2012 ascus Endometrial biopsy (2)LEEP, COMMENTS: for recurrent cervical dysplasia, path ipfraohx4111Tafbnr Biopsy, COMMENTS: 2002, 2003, 2004 and 2009Cataract Extraction ([id number] hip tqrjirlqmdg9631-27-94Youeznvfyz7057-98-53
[2025-04-16 12:23] LABS: Hematocrit 40.6 % (36.0-48.0); Hemoglobin 13.4 g/dL (12.0-16.0); Immature Granulocytes Abs Auto 0.03 10^3/uL (0.00-0.03); Immature Granulocytes Pct Auto 0.3 % (0.0-0.5); Lymphocytes Absolute Auto 0.9 10^3/uL (1.2-3.8); Mean Corpuscular HGB Conc 33.0 g/dL (29.9-35.2); Mean Corpuscular Hemoglobin 31.8 pg (26.7-34.0); Mean Corpuscular Volume 96.2 fL (81.0-99.0); Platelet Count 352 10^3/uL (150-450); Red Blood Count 4.22 10^6/uL (4.20-5.40); White Blood Count 10.7 10^3/uL (4.0-11.0)
[2025-04-16 12:35] LABS: Alanine Aminotransferase 21 U/L (14-59); Albumin Globulin Ratio 1.0; Albumin Level 3.8 g/dL (3.4-5.0); Alkaline Phosphatase 58 U/L (46-116); Anion Gap 11.4; Aspartate Amino Transferase 12 U/L (15-37); Blood Urea Nitrogen 22.0 mg/dL (7.0-18.0); Calcium 9.8 mg/dL (8.5-10.1); Carbon Dioxide 27.5 mmol/L (21.0-32.0); Chloride 102 mmol/L (98-107); Cholesterol 210 mg/dL (<=200); Estimated GFR (African America >60 (>=60 mL/min/1.73m^2); Estimated GFR (Non-African Ame >60 (>=60 mL/min/1.73m^2); Free T3 1.34 pg/mL (2.18-3.98); Globulin 3.7 g/dL; Glucose 117 mg/dL (74-106); HDL Cholesterol 78 mg/dL (40-60); Potassium 3.9 mmol/L (3.5-5.1); Sodium 137 mmol/L (136-145); Thyroid Stimulating Hormone 0.101 uIU/mL (0.358-3.740); Total Protein 7.5 g/dL (6.4-8.2); Triglycerides 94 mg/dL (<=150); VLDL CHOLESTEROL 18.8 mg/dL
== END 2025-04-16 11:16 | disposition home or self-care (01) ==
LOC: LAB 11:16
PROVIDERS: PCP Family Medicine; Visit Provider Family Medicine
DX: E03.9 Hypothyroidism, unspecified (principal); I10 Essential (primary) hypertension; M19.90 Unspecified osteoarthritis, unspecified site; R73.09 Other abnormal glucose
CPT/HCPCS: 36415; 80053; 80061; 82306; 83036; 84436; 84443; 84481; 85025

== ENCOUNTER 2025-04-18 08:52 | Outpatient (OUT) | payer MEDICARE, SELFPAY ==
--- OUTSIDE RECORDS SUMMARY | 2025-04-18 08:55 | XMS_ITS | Encounter Summary ---
Author Organization [facility] Address [address] [place] [address] Care Team Providers Care Cyber Software Engineer Name Role Phone Rodney Hernandez MD Primary Care Provider [phone] Reason for Visit * ReasonOnset DqzlWsratqibCaoihqs48/16/2025 Encounter Details DateTypeDepartmentCare Team (Latest Contact Info)Skpfvocbvgs92/16/2025Telephone [facility] [address] [place] [address] Florence Palafox LPN [address] [place] [address] Results Social History Tobacco UseTypesPacks/DayYears UsedDateSmoking Tobacco: NeverPassive Smoke Exposure: NeverSmokeless Tobacco: NeverAlcohol UseStandard Drinks/WeekComments Never0 (1 standard drink = 0.6 oz pure alcohol)caffeine: noneComments UnknownSex and Gender InformationValueDate RecordedSex Assigned at BirthFemale 10/12/2022 2:42 PM EDTLegal AyvKbwxzw19/15/2023 6:54 PM EDTGender IdentityFemale 10/12/2022 2:42 PM EDTSexual OrientationNot on filedocumented as of this encounter Miscellaneous Notes * Telephone Encounter - Florence Palafox LPN - 04/16/2025 5:00 PM EST Faxed [facility] requesting final pathology report from biopsy completed on 04/02/2025. documented in this encounter Plan of Treatment DateTypeDepartmentCare Team (Latest Contact Info)Bwjlfcghgds06/04/2026 9:15 AM EDTOffice Visit [facility] [address] [place] [address] Mahi Saba, SAWYER HELPER-PRINTER MAINTAINER [address] [facility] [address] [place] [address] documented as of this encounter Visit Diagnoses Not on filedocumented in this encounter Care Teams Team MemberRelationshipSpecialtyStart DateEnd Date Rodney Hernandez MD [address] [place] [address] PCP - GeneralFamily Medicine10/13/22documented as of this encounter
--- OUTSIDE RECORDS SUMMARY | 2025-04-18 08:55 | XMS_ITS | Clinical Summary ---
Author Organization [facility] Address [id number] [address] [place] [address] Care Team Providers Care Tobacco Prevention Health Educator Name Role Phone Rodney Hernandez MD Primary Care Provider [phone] Allergies No known active allergies Medications MedicationSigDispense [...] every morning before breakfast. Take on empty zoochwm1002/24/2024ctive cholecalciferol, vitamin D3, 2,000 units tablet Take [...] left01/18/2019 Aftercare following left hip joint replacement evvwhyi1903/09/2018It band syndrome, left03/09/2018Status post total hip replacement, left09/13/2017Chronic kidney disease, stage Essential uxeekptmuhrf23/14/2018Dyslipidemia 07/13/2017Primary osteoarthritis of left hip04/05/2017Encounter for long-term (current) use of lznkcguveyf46/05/2017 Resolved Problems ProblemNoted DateDiagnosed DateResolved DateOsteoarthritis of one hip, left Family History Medical HistoryRelationNameCommentsNo Known ProblemsBrotherDiabetesFather ArthritisMotherCOPDMotherHeart diseaseMotherDementiaSisterDiabetesSister Anesthesia problemsNeg HxRelationNameStatusCommentsBrotherAliveFatherDeceased MotherDeceasedSisterDeceased Social History Tobacco UseTypesPacks/DayYears UsedDateSmoking Tobacco: NeverSmokeless Tobacco: Never Tobacco Cessation:Counseling Given: Not Answered Alcohol UseStandard Drinks/WeekCommentsNo0 (1 standard drink = 0.6 oz pure alcohol)ChildcareAnswerDate NareiqvsHleaqnhkeVpnenoi86/13/2019EmploymentAnswer Date MvcyqvlmSlnwxbqsnaHbvoquo23/13/2019Hunger ScreeningAnswerDate Recorded Within the past 12 months we worried whether our food would run out before we got money to buy more.Never True06/25/2024Within the past 12 months the food we bought just didn't last and we didn't have money to get more.Never True 06/25/2024Purpose - LifeAnswerDate RecordedPurpose and direction in lifeUnknown 1CommentsNoSex and Gender InformationValueDate RecordedSex Assigned at BirthNot on fileLegal NpiUcpqiq45/13/2017 1:04 PM ESTGender Identity Not on fileSexual OrientationNot on file Last Filed Vital Signs Vital SignReadingTime TakenCommentsBlood Eqkxlyrz467/7002/ 8:43 AM EST Dlknx9849/01/2025 4:13 PM YTJYhryzswxsrv67.6 ??C (97.9 ??F)06/11/2024 3:28 PM ESTRespiratory Ovvt944506/11/2024 4:13 PM ESTOxygen Gppvrhewhi91%06/11/2024 4:13 PM ESTInhaled Oxygen Concentration--Edzhrz69.9 kg (143 lb)06/25/2024 8:43 AM EST Liiqku001.6 cm (5' 4 )06/25/2024 8:43 AM ESTBody Mass Index24.55006/25/2024 8:43 AM EST Plan of Treatment DateTypeDepartmentCare Team (Latest Contact Info)Mcbzgpbznnc62/21/2026 10:30 AM EDTOffice Visit [facility] [address] [place] [address] Sanjuanita Mix MD [address] [place] [address] Health MaintenanceDue DateLast DoneCommentsDepression Stbafnico13/25/1960 DTaP,Tdap and Td Vaccines (1 - Tdap)12/24/1966Zoster (Shingles) Vaccine (1 of 2) 12/24/1997Fall Risk Onraxkadd89/25/2013RSV ( or age 60+ yrs) (1 - 1-dose 75+ series)12/24/2022OVID-19 Vaccine (2 - 2024- season)/06/2020 Influenza Deushjs64/, 05/18/2023, 03/23/2022, Additional history existsTobacco Laqxdstst92 Goals GoalPatient Goal TypeAssociated ProblemsRecent ProgressPatient-Stated?Author Improve mobility Patricia Nice, RN Note: Evaluation of progress towards goal: Maximize work with PT at discharge to strengthen L hip Medical Devices ImplantedTypeAreaManufacturerDevice IdentifierShelf Expiration DateModel / Serial / LotShl Actb 50mm Hip 3 Hl Fin Pps - [id number] Implanted:Qty: 1 on 07/13/2017 by [facility] ImplantLeft: HipZimmer Npvwnn61/[id number] / / [id number] Actb G7 Ntrl E1 36mm D - [id number] Implanted:Qty: 1 on 07/13/2017 by Arnoldo [facility]razas [facility] ImplantLeft: HipZimmer [id number] / / [id number] Fem 36mm Opt Shl Actb G7 Bl Rpl 650-1057 - [id number] Implanted:Qty: 1 on 07/13/2017 by Arnoldo Terrazas [facility] ImplantLeft: HipZimmer Amgxeu61/[id number] / / [id number] Fem 107.5mm 133d 11 Hi Os - [id number] Implanted:Qty: 1 on 07/13/2017 by Arnoldo Terrazas MD at [facility] Im[facility]Left: HipZimmer [id number] / / [id number] Fem Opt -6mm Tpr Hip Blx D Rpl 650-1064 - [id number] Implanted:Qty: 1 on 07/13/2017 by Arnoldo Terrazas [facility] ImplantLeft: HipZimmer [id number] / / [id number] Insurance Advance Directives * Full Code (Latest Code Status on File) Date ActivatedDate InactivatedComments07/13/2017 11:50 AM07/14/2017 4:05 PM Care Teams Team MemberRelationshipSpecialtyStart DateEnd Date Rodney Hernandez MD PCP - Teneiqb80/5/17
--- OUTSIDE RECORDS SUMMARY | 2025-04-18 08:55 | XMS_ITS | Clinical Summary ---
Author Organization [facility] Address [address] [place] [address] Care Team Providers Care Furniture Packer Name Role Phone Rodney Hernandez MD Primary Care Provider [phone] Allergies No known active allergies Medications MedicationSigDispense QuantityRefillsLast FilledStart DateEnd DateStatus diclofenac EC [address] tablet 03/02/2021ctive amitriptyline 50 MG tablet 01/06/2021ctive simvastatin 20 MG tablet 01/06/2021ctive lisinopril 10 MG tablet 01/06/2021ctive alendronate 70 MG tablet 02/22/2021ctive Active Problems ProblemNoted DateDiagnosed BjafFzpzveuo49/17/2021ocalized /09/2021 Atrophic skin03/10/2021Thigh pain, musculoskeletal, left01/18/2019Aftercare following left hip joint replacement fzruniv3503/09/2018Status post total hip replacement, left09/13/2017Chronic kidney disease, stage 303Dyslipidemia 07/13/2017Essential ymovcfdvvahw30/14/2018Primary osteoarthritis of left hip 04/05/2017Encounter for long-term (current) use of tjbfoizzmyh69/05/2017 Social History Tobacco UseTypesPacks/DayYears UsedDateSmoking Tobacco: NeverSmokeless Tobacco: NeverAlcohol UseStandard Drinks/WeekCommentsNot Currently0 (1 standard drink = 0.6 oz pure alcohol)CommentsUnknownSex and Gender InformationValueDate RecordedSex Assigned at BirthNot on fileLegal HbrLlrwig01/31/2017 10:11 AM EDT Gender IdentityNot on fileSexual OrientationNot on file Last Filed Vital Signs Vital SignReadingTime TakenCommentsBlood Wnnxfouc769/8503/ 9:16 AM EDT Nebyt5161 9:16 AM ZZNBuuuvnsloho00.4 ??C (97.6 ??F)07/29/2021 9:16 AM EDTRespiratory Rate--Oxygen Saturation--Inhaled Oxygen Concentration--Idcfzv51.7 kg (136 lb)07/29/2021 9:16 AM YTLAzfvsj050.6 cm (5' 4 )07/29/2021 9:16 AM EDT Body Mass Index23.34007/29/2021 9:16 AM EDT Plan of Treatment Health MaintenanceDue DateLast DoneCommentsDEXA SCAN BBORCCZBTC31/25/1946 HEPATITIS C VIRUS QBGYOSRYN05/25/7139XECDFNJ95/25/1948TDAP (ADULT)12/24/1966 CERVICAL CANCER SCREENING PBQKVVYMRT82/25/1969MAMMOGRAM SCREENING DISCUSSION 1987COLORECTAL CANCER SCREENING GNSWFPMIJD80/25/1993ZOSTER (SHINGLES) VACCINE (1 of 2)12/24/1997RSV VACCINE (1 - 1-dose 75+ series)3COVID-19 VACCINE (2 - 2024- season)/06/2020INFLUENZA VACCINE (#1)2024 04/09/2020, 02/13/2020, 03/31/2017, Additional history existsPNEUMOCOCCAL VACCINE PELFDBNlrypinwl28/30/2017, 03/02/2017HEP B VACCINEAged OutNo longer eligible based on patient's age to complete this topic Insurance on file Care Teams Team MemberRelationshipSpecialtyStart DateEnd Rodney Hernandez MD PCP - GeneralFamily Tgpomiin69/9/21
--- OUTSIDE RECORDS SUMMARY | 2025-04-18 08:55 | XMS_ITS | Clinical Summary ---
Author Organization [facility] Address [address] [place] [address] Care Team Providers Care Child Care Teacher Name Role Phone Rodney Hernandez MD Primary Care Provider [phone] Allergies No known active allergies Medications MedicationSigDispense [...] DateAge-related nuclear cataract of left eye 10/13/2022Retinitis crxrnvfxci57/14/2023ry eyes10/13/2022seudophakodonesis 10/13/2022 Encounters DateTypeDepartmentCare KdsiYgavvtfkkld18/16/2025[facility]phone [facility] [address] [place] [phone] Florence Palafox LPN Ncaatab7704/02/2025 9:25 AM ESTOffice Visit [facility] [address] [place] [phone] Mahi Saba PHOTOGRAPH ENLARGER-LOAN FUNDER Seborrheic keratosis (Primary Dx); Lentigines; Actinic keratosis; Neoplasm of unspecified behavior of bone, soft tissue, and skin04/02/2025amboo flowsheet [facility] [address] [place] [phone] Mahi Saba APRN-CNP 04/02/2025Travelfrom Last 3 Months Family History Medical HistoryRelationNameCommentsDiabetesFatherGlaucomaFatherCataractsMother DiabetesMotherHeart diseaseMotherStrokeMotherMelanomaNeg HxRelationNameStatus CommentsFatherDeceasedMotherDeceased Social History Tobacco UseTypesPacks/DayYears UsedDateSmoking Tobacco: NeverPassive Smoke Exposure: NeverSmokeless Tobacco: Never Tobacco Cessation:Counseling Given: No Alcohol UseStandard Drinks/WeekCommentsNever0 (1 standard drink = 0.6 oz pure alcohol)caffeine: noneCommentsUnknownSex and Gender InformationValueDate RecordedSex Assigned at CddwnSscrif42/13/2023 2:42 PM EDTLegal SexFemale 07/14/2022 6:54 PM EDTGender BaegcfgzYczpno43/13/2023 2:42 PM EDTSexual OrientationNot on file Last Filed Vital Signs Vital SignReadingTime TakenCommentsBlood Grpiuxqs187/66010/13/2022 2:49 PM EDTNo latex allergy, no PM or DF, no fuudzlNkatr8380/14/2023 2:49 PM EDTTemperature-- Respiratory Rate--Oxygen Saturation--Inhaled Oxygen Concentration--Weight-- Pyfmfr240.6 cm (5' 4 )04/14/2022 12:00 PM ESTBody Mass Index-- Plan of Treatment DateTypeDepartmentCare Team (Latest Contact Info)Eylcnwuxbpv99/04/2026 9:15 AM EDTOffice Visit [facility] [address] [place] [phone] Mahi Saba APRN-LOAN FUNDER [address] [place] [address] Health MaintenanceDue DateLast DoneCommentsCOVID-19 Vaccine ( season) 512/06/2020Influenza Vaccine (#1)501/, 05/18/2023, 03/23/2022, Additional history existsPneumococcal Vaccine: 65+ YearsCompleted 03/31/2017, 03/02/2017 Procedures Procedure NamePriorityDate/TimeAssociated DiagnosisCommentsCRYOTHERAPY SKIN ZTLYDXGhdbrgb85/02/2025 9:38 AM EST Actinic keratosis SKIN / NAIL MYHLXRTjvfivx97/02/2025 9:30 AM EST Neoplasm of unspecified behavior of bone, soft tissue, and skin from Last 3 Months Results * Cryotherapy, skin lesion (04/02/2025 9:38 AM EST) Narrative Authorizing ProviderResult TypeResult StatusNatalie Tresa Saba PHOTOGRAPH ENLARGER-CNPDERM PROCEDURE ORDERABLESFinal Result * Lesion biopsy (04/02/2025 [...] used: 1 cc Authorizing ProviderResult TypeResult StatusNatalie Tresa Saba PHOTOGRAPH ENLARGER-CNPDERM PROCEDURE ORDERABLESFinal Result from Last 3 Months Insurance Care Teams Team MemberRelationshipSpecialtyStart Date Rodney Hernandez MD [address] [place] [phone] PCP - GeneralFamily Medicine10/13/22
--- OUTSIDE RECORDS SUMMARY | 2025-04-18 08:55 | XMS_ITS | Clinical Summary ---
Author Organization [facility] Address [address] [place] [address] Care Team Providers Care Correspondence Analyst Name Role Phone Unavailable Primary Care Provider Unavailabl e Social History Tobacco UseTypesPacks/DayYears UsedDateSmoking Tobacco: Never AssessedUT Safety & EnvironmentAnswerDate RecordedFear of Current or Ex-PartnerNot on file 06/23/2023Emotionally AbusedNot on file06/23/2023hysically AbusedNot on file 06/23/2023Sexually AbusedNot on file06/23/2023hysically or Sexually AbusedNot on file06/23/2023CommentsUnknownSex and Gender InformationValueDate RecordedSex Assigned at BirthNot on fileLegal OxiMgikqm91/29/2022 10:52 PM EDT Gender IdentityNot on fileSexual OrientationNot on file Last Filed Vital Signs Vital SignReadingTime TakenCommentsBlood Jrsqxvqo406/8108 9:45 AM EDT Pulse--Temperature--Respiratory Rate--Oxygen Yaqxqrigaj84%12/28/2021 9:45 AM EDT Inhaled Oxygen Concentration--Okmfro21.2 kg (135 lb)12/28/2021 9:43 AM EDTHeight 162.6 cm (5' 4 )12/28/2021 9:39 AM EDTBody Mass Index23.1708 9:39 AM EDT Plan of Treatment Not on file
--- NOTE | 2025-04-18 08:56 | MM_ITS ---
Patient Name: BECKY STRONG MR#: [id number] : 1945 Exam Date: 04/18/2025 Ordering Doctor: DR DORCAS AGUIRRE . RADIOLOGY REPORT PROCEDURE: MM TOMOSYNTHESIS SCREENING BI COMPARISON: MM TOMOSYNTHESIS SCREENING BI, 04/17/2024. MM TOMOSYNTHESIS SCREENING BI, 04/12/2023. MG MAMM SCREEN 3D YONI CAD, 04/07/2022. MG MAMM YONI SCRN W CAD DIG, 10/02/2013. INDICATIONS: Screening Calculator Name NCI Breast Cancer Risk Assessment Tool 5 Year Breast Cancer Risk 2.90% Lifetime Breast Cancer Risk 5.50% Personal Breast Cancer No Personal Ovarian Cancer No Treatments None Family Cancers None LOCATION: [facility] BREAST COMPOSITION: The breasts are heterogeneously dense, which may obscure small masses. FINDINGS: DIAGNOSTIC CATEGORY 0--INCOMPLETE: NEED ADDITIONAL IMAGING EVALUATION. RIGHT BREAST: No significant suspicious finding. LEFT BREAST: Asymmetry central aspect of the left breast, middle depth on MLO view only. RECOMMENDATIONS: ADDITIONAL MAMMOGRAPHIC VIEWS REQUIRED: LEFT BREAST - spot-compression/true lateral views, possible ultrasound recommended. Dictated by: Gadiel Alexis DO on 04/18/2025 at 10:17 Approved by: Gadiel Alexis DO on 04/18/2025 at 11:06
== END 2025-04-18 08:53 | disposition home or self-care (01) ==
LOC: MAMMO 08:52
PROVIDERS: PCP Family Medicine; Visit Provider Family Medicine
DX: Z12.31 Encounter for screening mammogram for malignant neoplasm of breast (principal); R92.8 Other abnormal and inconclusive findings on diagnostic imaging of breast
CPT/HCPCS: 77063; 77067